=== PATIENT | female | born 1955 | race Caucasian/White ===

== ENCOUNTER 2016-12-23 21:51 | Inpatient (IN) | payer OTHER ==
[2016-12-23 22:04] VITALS: BMI 41.3
[2016-12-23] MEDS ORDERED: SODIUM CHLORIDE 1,000 ML IV STA (23:43)
[2016-12-23] MEDS ORDERED: ONDANSETRON 4 MG/2 ML VIAL IVPB ONE (23:43)
--- NOTE | 2016-12-23 23:43 | PDOC ---
History of Present Illness - History of Present Illness Initial Comments: 12/24/16 01:15 Patient is a 61 year old female with significant medical hx of hypothyroidism, HTN, and metastatic colon CA with spread to pelvis, s/p chemotherapy and radiation, who is presenting to the ED with subjective fever, chills, nausea, vomiting, and diarrhea for one day. Patient is accompanied by family members who provided history. Today the patient had 15 episodes of diarrhea with bright red blood and 3 episodes of nonbloody, nonbilious vomiting. Family members report that the patient has lower abdominal pain that they state is secondary to hernia. They also endorse that multiple family members have had similar symptoms over the past week with nausea, vomiting, and diarrhea. Patient was diagnosed with colon CA back in 2011 and underwent one year of chemotherapy. She received a PET scan in 2014 which demonstrated pelvic mass which was noted to be evidence of progression of disease. Patient was also found to have increased CEA. The patient resumed chemotherapy (Xeloda, Vectibix ) and underwent radiation until 11/25/16. Patient came to the from [place] for a second opinion. <Abby Hope - Last Filed: 12/24/16 01:37> <Celeste Mullen - Last Filed: 12/24/16 16:38> - General Chief Complaint: Pain Stated Complaint: VOMITING/DIARRHEA Time Seen by Provider: 12/23/16 23:28 Past History <Abby Hope - Last Filed: 12/24/16 01:37> - Past Medical History Cancer: Yes (lung, lumph nodes , pelvic) Other medical history: LD chemo november 25 - Psycho/Social/Smoking Cessation Hx Suicidal Ideation: No Smoking History: Never smoked <Celeste Mullen - Last Filed: 12/24/16 16:38> - Past Medical History Allergies/Adverse Reactions: Allergies Allergy/AdvReac Type Severity Reaction Status Date / Time acetaminophen [From Tylenol] Allergy Verified 12/23/16 22:05 ciprofloxacin [From Cipro] Allergy Verified 12/23/16 22:04 ciprofloxacin HCl Allergy Verified 12/23/16 22:04 [From Cipro] loratadine [From Claritin] Allergy Verified 12/23/16 22:05 Penicillins Allergy Verified 12/23/16 22:05 Home Medications: Ambulatory Orders Enalapril Maleate [Vasotec] 20 mg PO DAILY 12/24/16 Levothyroxine [Synthroid -] 150 mcg PO DAILY 12/24/16 Review of Systems - Review of Systems Comments:: 12/24/16 01:18 CONSTITUTIONAL: Present: subjective fever, chills Absent: diaphoresis, generalized weakness, malaise, loss of appetite HEENT: Absent: rhinorrhea, nasal congestion, throat pain, throat swelling, difficulty swallowing, mouth swelling, ear pain, eye pain, visual changes CARDIOVASCULAR: Absent: chest pain, syncope, palpitations, irregular heart rate, lightheadedness , peripheral edema RESPIRATORY: Absent: cough, shortness of breath, dyspnea with exertion, orthopnea, wheezing, stridor, hemoptysis GASTROINTESTINAL: Present: lower abdominal pain, nausea, vomiting, diarrhea Absent: abdominal distension, constipation, melena, hematochezia GENITOURINARY: Absent: dysuria, frequency, urgency, hesitancy, hematuria, flank pain, genital pain MUSCULOSKELETAL: Absent: myalgia, arthralgia, joint swelling SKIN: Absent: rash, itching, pallor HEMATOLOGIC/IMMUNOLOGIC: Absent: easy bleeding, easy bruising, lymphadenopathy, frequent infections ENDOCRINE: Absent: unexplained weight gain, unexplained weight loss, heat intolerance, cold intolerance NEUROLOGIC: Absent: headache, focal weakness or paresthesia, dizziness, unsteady gait, seizure, mental status changes, bladder or bowel incontinence. PSYCHIATRIC: Absent: anxiety, depression, suicidal or homicidal ideation, hallucinations <Abby Hope - Last Filed: 12/24/16 01:37> *Physical Exam - Vital Signs Last Vital Signs Temp Pulse Resp BP Pulse Ox 98.3 F 95 H 18 140/78 99 12/23/16 21:59 12/23/16 21:59 12/23/16 21:59 12/23/16 21:59 12/23/16 21:59 - Physical Exam Comments: 12/24/16 01:19 GENERAL: Well developed, well nourished. Awake and alert. No acute distress. HEENT: Normocephalic, atraumatic. PERRLA, EOMI. No conjunctival pallor. Sclera are non- icteric. Moist mucous membranes. Oropharynx is clear. NECK: Supple. Full ROM. No JVD. Carotid pulses 2+ and symmetric, without bruits. No thyromegaly. No lymphadenopathy. CARDIOVASCULAR: Regular rate and rhythm. No murmurs, rubs, or gallops. Distal pulses are 2+ and symmetric. PULMONARY: No evidence of respiratory distress. Lungs clear to auscultation bilaterally. No wheezing, rales or rhonchi. ABDOMINAL: Protuberant. Soft. Non-tender. Non-distended. No rebound or guarding. No organomegaly. Normoactive bowel sounds. MUSCULOSKELETAL: Normal range of motion at all joints. No bony deformities or tenderness. No CVA tenderness. EXTREMITIES: No cyanosis. No clubbing. No edema. No calf tenderness. SKIN: Scattered skin lesions of various ages, some are healed, throughout arms and torso. No evidence of cellulitis. Warm and dry. Normal capillary refill. NEUROLOGICAL: Alert, awake, appropriate. Cranial nerves 2-12 intact. Normal speech. Gait is normal without ataxia. PSYCHIATRIC: Cooperative. Good eye contact. Appropriate mood and affect. <Abby Hope - Last Filed: 12/24/16 01:37> - Vital Signs Last Vital Signs Temp Pulse Resp BP Pulse Ox 98.3 F 95 H 18 140/78 99 12/23/16 21:59 12/23/16 21:59 12/23/16 21:59 12/23/16 21:59 12/23/16 21:59 <Celeste Mullen - Last Filed: 12/24/16 16:38> ED Treatment Course - LABORATORY CBC & Chemistry Diagram: 12/24/16 01:20 12/24/16 01:20 <Abby Hope - Last Filed: 12/24/16 01:37> - LABORATORY CBC & Chemistry Diagram: 12/24/16 15:00 12/24/16 15:00 <Celeste Mullen - Last Filed: 12/24/16 16:38> Medical Decision Making - Medical Decision Making 12/24/16 01:28 61-year-old female brought in by family because she had nausea vomiting diarrhea in the last 24 hours. She does have sick contacts as her daughter states she had similar symptoms recently On exam, she had put her in. Abdomen, but without rebound or tenderness In speaking with the family told us that she had come from [place] on to seek a second opinion about her metastatic adenocarcinoma -Initially diagnosed with colon cancer in 2011 -However in February 2015. A pelvic mass was found in the biopsy showed that it was adenocarcinoma. She received Elfrida radiation and further chemotherapy for this cancer. - <Celeste Mullen - Last Filed: 12/24/16 16:38> *DC/Admit/Observation/Transfer - Attestations Scribe Attestion: 12/24/16 01:21 Documentation prepared by Abby Hope, acting as program medical director for Celeste Mullen MD. <Abby Hope - Last Filed: 12/24/16 01:37> <Celeste Mullen - Last Filed: 12/24/16 16:38> Diagnosis at time of Disposition: Hypocalcemia, Colon cancer
[2016-12-23] MEDS ORDERED: ONDANSETRON 4 MG/2 ML VIAL ONE (23:48)
[2016-12-24 01:37] LABS: BASOPHIL 0.7 % (0-2.0); EOSINOPHIL 0.7 % (0-4.5); MCH 29.8 pg (25.7-33.7); MCHC 32.6 g/dl (32.0-36.0); MEAN CELL VOLUME 91.2 fl (80-96); MEAN PLT VOLUME 8.4 fl (7.5-11.1); NEUTROPHILS 84.7 % (42.8-82.8); PLATELET COUNT 199 K/MM3 (134-434); RDW 21.4 % (11.6-15.6)
[2016-12-24 01:56] LABS: ALBUMIN 3.4 g/dl (3.4-5.0); ANION GAP 12 (8-16); BILIRUBIN,TOTAL 1.2 mg/dL (0.2-1.0); CO2 22 mmol/L (21-32); GLUCOSE,RANDOM 116 mg/dL (74-106); SGOT/AST 26 U/L (15-37)
[2016-12-24 01:59] LABS: ALK PHOS 160 U/L (45-117); SGPT/ALT 20 U/L (12-78)
[2016-12-24 02:02] LABS: CALCIUM 6.8 mg/dL (8.5-10.1)
[2016-12-24 02:03] LABS: ANISOCYTOSIS 2+; PLATELET ESTIMATE ADEQUATE (NORMAL)
[2016-12-24] MEDS ORDERED: POTASSIUM CHLORIDE TABS 20 MEQ TABLET.ER (FP) PO ONE ×2 (02:46→03:33)
--- NOTE | 2016-12-24 05:52 | PDOC ---
*Physical Exam - Vital Signs Last Vital Signs Temp Pulse Resp BP Pulse Ox 98.3 F 95 H 18 140/78 99 12/23/16 21:59 12/23/16 21:59 12/23/16 21:59 12/23/16 21:59 12/23/16 21:59 <Moira Johnson - Last Filed: 12/24/16 06:19> - Vital Signs Last Vital Signs Temp Pulse Resp BP Pulse Ox 98.3 F 95 H 18 140/78 99 12/23/16 21:59 12/23/16 21:59 12/23/16 21:59 12/23/16 21:59 12/23/16 21:59 <Arcelia,Prieto - Last Filed: 12/24/16 06:22> Heart Score/ECG Review - ECG Impressions Comment:: 12/24/16 05:52 Twelve-lead EKG was performed and reviewed by me. There is normal sinus rhythm with a normal rate. rate of 77 The axis is normal. The intervals are normal. There is normal R wave progression There are no ST or T wave abnormalities. Impression: Normal twelve-lead EKG <Prieto Paniagua - Last Filed: 12/24/16 06:22> ED Treatment Course - LABORATORY CBC & Chemistry Diagram: 12/24/16 01:20 12/24/16 05:20 - ADDITIONAL ORDERS Additional order review: Laboratory Results 12/24/16 12/24/16 05:20 01:20 Sodium 141 142 Potassium 4.2 D 3.4 L Chloride 111 H 108 H Carbon Dioxide 19 L 22 Anion Gap 11 12 BUN 14 15 Creatinine 0.8 1.0 Creat Clearance w eGFR > 60 56.75 Random Glucose 103 116 H Calcium 6.6 L* 6.8 L* Total Bilirubin 1.1 H 1.2 H AST 34 D 26 ALT 18 20 Alkaline Phosphatase 135 H 160 H Total Protein 6.0 L 7.0 Albumin 2.8 L 3.4 Lipase 237 12/24/16 01:20 RBC 3.88 MCV 91.2 MCHC 32.6 RDW 21.4 H MPV 8.4 Neutrophils % 84.7 H Lymphocytes % 8.2 Monocytes % 5.7 Eosinophils % 0.7 Basophils % 0.7 - RADIOLOGY Radiograph Interpretation: 12/24/16 06:19 EXAM: CT abdomen and pelvis with contrast Reviewed by Imaging supervisor conditioning yard: FINDINGS: Bibasilar lung nodules could represent metastases. The visualized cardiac chambers are normal size and configuration. There is mildly fatty. Status post cholecystectomy no biliary duct dilation.A 1.1 cm right adrenal nodule could represent adenoma. Normal pancreas, spleen, left adrenal gland and kidneys. There is a large multiloculated ventral hernia containing multiple loops small bowel without bowel obstruction. There is moderate rectal inflammation with mild inflammation of the rest of the colon as well as left-sided abdominal small bowel inflammation which may be secondary to infection or inflammatory bowel disease. Recurrent neoplasm is not excluded. No bowel obstruction, abscess or free air. There is no aortic aneurysm. There is no significant retroperitoneal lymphadenopathy. The appendix was not identified. Status post hysterectomy. 3.1 x 2.2 cm ovoid left pelvic mass could represent the left ovary and should be correlated with surgical history compared to a prior exams. Urinary bladder is inflamed, consistent with cystitis. There is no pelvic free fluid. Right pelvic regular calcification may represent an old inflamed or infected lymph node and/or post treatment dystrophic calcification . IMPRESSION: Moderate colitis and mild left-sided enteritis could be secondary to infection or inflammatory bowel disease. Recurrent neoplasm cannot be excluded. Large multiloculated ventral hernia containing small bowel without evidence of bowel obstruction. Lung nodules are suspicious for metastases. Left pelvic mass may represent a normal ovary, but recommend comparison to prior exams and pelvic surgical history. Fatty liver. Small right adrenal nodule is possibly an adenoma which can be followed up with MRI and/or compared to prior exams. - Medications Given in the ED: ED Medications Discontinued Medications Generic Name Dose Route Start Last Admin Trade Name Freq PRN Reason Stop Dose Admin Sodium Chloride 1,000 mls @ 1,000 mls/hr 12/23/16 23:43 12/24/16 01:39 Normal Saline - IV 12/24/16 00:42 1,000 mls/hr ASDIR STA Administration Ondansetron HCl 4 mg 12/23/16 23:43 12/24/16 01:39 Zofran Injection IVPB 12/23/16 23:44 4 mg ONCE ONE Administration Potassium Chloride 40 meq 12/24/16 02:46 12/24/16 03:34 K-Dur - PO 12/24/16 02:47 40 meq ONCE ONE Administration <Moira Johnson - Last Filed: 12/24/16 06:19> - LABORATORY CBC & Chemistry Diagram: 12/24/16 01:20 12/24/16 05:20 - ADDITIONAL ORDERS Additional order review: Laboratory Results 12/24/16 01:20 Sodium 142 Potassium 3.4 L Chloride 108 H Carbon Dioxide 22 Anion Gap 12 BUN 15 Creatinine 1.0 Creat Clearance w eGFR 56.75 Random Glucose 116 H Calcium 6.8 L* Total Bilirubin 1.2 H AST 26 ALT 20 Alkaline Phosphatase 160 H Total Protein 7.0 Albumin 3.4 Lipase 237 12/24/16 01:20 RBC 3.88 MCV 91.2 MCHC 32.6 RDW 21.4 H MPV 8.4 Neutrophils % 84.7 H Lymphocytes % 8.2 Monocytes % 5.7 Eosinophils % 0.7 Basophils % 0.7 - RADIOLOGY Radiology Studies Ordered: Category Date Time Status ABDOMEN & PELVIS CT WITH CONTR [CT] Stat CT Scan 12/24/16 02:56 Taken - Medications Given in the ED: ED Medications Discontinued Medications Generic Name Dose Route Start Last Admin Trade Name Freq PRN Reason Stop Dose Admin Sodium Chloride 1,000 mls @ 1,000 mls/hr 12/23/16 23:43 12/24/16 01:39 Normal Saline - IV 12/24/16 00:42 1,000 mls/hr ASDIR STA Administration Ondansetron HCl 4 mg 12/23/16 23:43 12/24/16 01:39 Zofran Injection IVPB 12/23/16 23:44 4 mg ONCE ONE Administration Potassium Chloride 40 meq 12/24/16 02:46 12/24/16 03:34 K-Dur - PO 12/24/16 02:47 40 meq ONCE ONE Administration <Arcelia,Prieto - Last Filed: 12/24/16 06:22> Medical Decision Making - Medical Decision Making 12/24/16 05:48 Pt signed out to me from Dr. Mullen at approx 2am. The pt is a 61y F hx of hypothryoidism, htn, metastatic colon ca with spread to pelvis s/p chemo radiation presenting with subjective fver, n/v/d for x 1 day. pt [place] 6/5 [place] the [place]. pt had labs that showed hypocalcemia to 6.5. will repeat. also awiaint repeat CT dispo pending 12/24/16 06:13 pts calcium, repeat was 6.6 corrected for albumin is 7.6 will give her calcium gluconate pts CT noted for moderate colitis with left sided enteritis that could be seconary to infection vs. inflammatory vs recurrentneoplasm. +lung nodules, +L pelvic mass showing possible ovary vs. mass. del dmit for further management of hypocalcemia and oncology workup case dw dr. leija agree with admssion for further management will place in med/surg Case discussed in detail with admitting physician including history, physical exam and ancillary studies. Admitting physician has assumed care for the patient, will follow all pending diagnostics and will complete the evaluation and treatment. <Prieto Paniagua - Last Filed: 12/24/16 06:22> *DC/Admit/Observation/Transfer <Moira Johnson - Last Filed: 12/24/16 06:19> - Discharge Dispostion Admit: Yes <Prieto Paniagua - Last Filed: 12/24/16 06:22> Diagnosis at time of Disposition: Hypocalcemia Colon cancer Qualifiers: Colon location: unspecified part of colon Qualified Code(s): C18.9 - Malignant neoplasm of colon, unspecified
[2016-12-24 06:01] LABS: ALBUMIN 2.8 g/dl (3.4-5.0); ALK PHOS 135 U/L (45-117); ANION GAP 11 (8-16); BILIRUBIN,TOTAL 1.1 mg/dL (0.2-1.0); CO2 19 mmol/L (21-32); CREATININE 0.8 mg/dL (0.55-1.02); GLUCOSE,RANDOM 103 mg/dL (74-106); SGPT/ALT 18 U/L (12-78)
[2016-12-24 06:03] LABS: SGOT/AST 34 U/L (15-37)
[2016-12-24 06:04] LABS: CALCIUM 6.6 mg/dL (8.5-10.1)
[2016-12-24] MEDS ORDERED: CALCIUM GLUCONATE 10% - 1,000 MG/10 ML VIAL IVPUSH ONE (06:12)
[2016-12-24] MEDS ORDERED: CALCIUM GLUCONATE 10% - 1,000 MG/10 ML VIAL ONE (06:16)
[2016-12-24 06:37] LABS: URINE APPEARANCE CLEAR; URINE BILIRUBIN NEGATIVE (NEGATIVE); URINE COLOR LTYELLOW; URINE GLUCOSE (UA) NEGATIVE (NEGATIVE); URINE KETONE NEGATIVE (NEGATIVE); URINE LEUK ESTERASE NEGATIVE (NEGATIVE); URINE NITRITE NEGATIVE (NEGATIVE); URINE PROTEIN NEGATIVE (NEGATIVE); URINE UROBILINOGEN NEGATIVE E.U./dl (0.2-1.0)
[2016-12-24 06:40] LABS: URINE BLOOD 2+ (NEGATIVE)
[2016-12-24 06:45] LABS: URINE MUCUS RARE; URINE RBC 6 /hpf (0-3); URINE WBC 16 /hpf (3-5)
[2016-12-24] MEDS ORDERED: ONDANSETRON 4 MG/2 ML VIAL IVPB PRN (08:41)
--- NOTE | 2016-12-24 08:57 | HP ---
CHIEF COMPLAINT:Nausea vomiting diarrhea and abdominal pain PCP:[place] HISTORY OF PRESENT ILLNESS: 61F with history of HTN hypothyroidism and metastatic colon Ca presents to the ED with a chief complaint of nausea, vomiting, diarrhea, and abdominal pain. History provided by patient and her son. Per patient she has had these symptoms since last night. She has been in contact with family members with similar symptoms. Today the patient had 15 episodes of diarrhea and 3 episodes of nonbloody, nonbilious vomiting. She reports subjective fevers and chills. Patient endorses lower abdominal pain is secondary to a ventral hernia. She states that she has had some blood in her stools for the past month. Has also been having vagina spotting for a couple of months. Her last antibiotic use was about a month ago. Patient was diagnosed with colon CA back in 2011 and underwent 25 sessions of radiation last one being 05/2016 and also chemotherapy (Xeloda, Vectibix) last dose 11/25/2016. She received a PET scan in 2014 which demonstrated pelvic mass which was noted to be evidence of progression of disease. Patient was also found to have increased CEA. Patient came to the [facility] from [place] for a second opinion and is awaiting insurance approval to be seen at [facility]. Last colonoscopy was in 2013. She denies chest pain, shortness of breath, edema, or burning on urination. Patient was noted to be hypocalcemic in the ED despite correcton for albumin and calcium gluconate given. ER course was notable for: (1)Labs EKG IVF (2)CT ABD/Pelv (3)Potassium calcium repletion antiemetics Recent Travel:Here from [place] PAST MEDICAL HISTORY:As above/ Ventral hernia PAST SURGICAL HISTORY:Cholecystectomy colon resection/ventral hernia repair hysterectomy Social History: Smoking:Denies Alcohol:Denies Drugs: Denies Allergies acetaminophen [From Tylenol] Allergy (Verified 12/23/16 22:05)-----Anaphylaxis ciprofloxacin [From Cipro] Allergy (Verified 12/23/16 22:04)----Rash ciprofloxacin HCl [From Cipro] Allergy (Verified 12/23/16 22:04)-----Rash loratadine [From Claritin] Allergy (Verified 12/23/16 22:05) Penicillins Allergy (Verified 12/23/16 22:05)-------Rash HOME MEDICATIONS: Home Medications Medication Instructions Recorded Enalapril Maleate [Vasotec] 20 mg PO DAILY 12/24/16 Levothyroxine [Synthroid -] 150 mcg PO DAILY 12/24/16 REVIEW OF SYSTEMS CONSTITUTIONAL: Absent: diaphoresis, generalized weakness, malaise, loss of appetite, weight change Present: fever, chills HEENT: Absent: rhinorrhea, nasal congestion, throat pain, throat swelling, difficulty swallowing, mouth swelling, ear pain, eye pain, visual changes CARDIOVASCULAR: Absent: chest pain, syncope, palpitations, irregular heart rate, lightheadedness , peripheral edema RESPIRATORY: Absent: cough, shortness of breath, dyspnea with exertion, orthopnea, wheezing, stridor, hemoptysis GASTROINTESTINAL: Absent: abdominal distension, constipation, melena Present: hematochezia abdominal pain, nausea, vomiting, diarrhea GENITOURINARY: Absent: dysuria, frequency, urgency, hesitancy, hematuria, flank pain, genital pain MUSCULOSKELETAL: Absent: myalgia, arthralgia, joint swelling, back pain, neck pain SKIN: Absent: rash, itching, pallor HEMATOLOGIC/IMMUNOLOGIC: Absent: easy bleeding, easy bruising, lymphadenopathy, frequent infections ENDOCRINE: Absent: unexplained weight gain, unexplained weight loss, heat intolerance, cold intolerance NEUROLOGIC: Absent: headache, focal weakness or paresthesias, dizziness, unsteady gait, seizure, mental status changes, bladder or bowel incontinence PSYCHIATRIC: Absent: anxiety, depression, suicidal or homicidal ideation, hallucinations. PHYSICAL EXAMINATION Vital Signs - 24 hr 12/24/16 07:03 Temperature 97.9 F Pulse Rate [ 70 Left] Respiratory 18 Rate Blood Pressure 127/71 [Left Arm] O2 Sat by Pulse 99 Oximetry (%) GENERAL: Awake, alert, and fully oriented, in no acute distress. HEAD: Normal with no signs of trauma. EYES: Pupils equal, round and reactive to light, extraocular movements intact, sclera anicteric, conjunctiva clear EARS, NOSE, THROAT: Moist mucous membranes. LUNGS: Breath sounds equal, clear to auscultation bilaterally. No wheezes, and no crackles. No accessory muscle use. HEART: Regular rate and rhythm, normal S1 and S2 without murmur ABDOMEN: Obese, soft, mildly tender to palpation over hernia. large abdominal defect noted. midline scar well healed UPPER EXTREMITIES: warm, well-perfused. No peripheral edema. LOWER EXTREMITIES: warm, well-perfused. No calf tenderness. No peripheral edema. NEUROLOGICAL: Cranial nerves II-XII grossly intact. Normal speech. Reflexes 2+ PSYCHIATRIC: Cooperative. Good eye contact. Appropriate mood and affect. SKIN: Warm, dry, normal turgor Laboratory Results - last 24 hr 12/24/16 07:00 Lactic Acid 1.5 EKG: NSR EXAM: CT abdomen and pelvis with contrast Reviewed by Imaging tourist information assistant: FINDINGS: Bibasilar lung nodules could represent metastases. The visualized cardiac chambers are normal size and configuration. There is mildly fatty. Status post cholecystectomy no biliary duct dilation.A 1.1 cm right adrenal nodule could represent adenoma. Normal pancreas, spleen, left adrenal gland and kidneys. There is a large multiloculated ventral hernia containing multiple loops small bowel without bowel obstruction. There is moderate rectal inflammation with mild inflammation of the rest of the colon as well as left-sided abdominal small bowel inflammation which may be secondary to infection or inflammatory bowel disease. Recurrent neoplasm is not excluded. No bowel obstruction, abscess or free air. There is no aortic aneurysm. There is no significant retroperitoneal lymphadenopathy. The appendix was not identified. Status post hysterectomy. 3.1 x 2.2 cm ovoid left pelvic mass could represent the left ovary and should be correlated with surgical history compared to a prior exams. Urinary bladder is inflamed, consistent with cystitis. There is no pelvic free fluid. Right pelvic regular calcification may represent an old inflamed or infected lymph node and/or post treatment dystrophic calcification . IMPRESSION: Moderate colitis and mild left-sided enteritis could be secondary to infection or inflammatory bowel disease. Recurrent neoplasm cannot be excluded. Large multiloculated ventral hernia containing small bowel without evidence of bowel obstruction. Lung nodules are suspicious for metastases. Left pelvic mass may represent a normal ovary, but recommend comparison to prior exams and pelvic surgical history. Fatty liver. Small right adrenal nodule is possibly an adenoma which can be followed up with MRI and/or compared to prior exams. ASSESSMENT/PLAN: 61F with multiple medical problems presemts to the ED with sepsis, nausea, vomiting, diarrhea, in the setting of metastatic colon cancer. sepsis secondary to Infectious colitis as patient had a HR of 95 and WBC of 14 on admission: likely infectious given history of presenting illness and recent sick contacts with similar problems. could also be inflammatory vs recurrent neoplasm Sepsis has resolved with IVF. Admit to inpatient services start clear liquid diet antiemetics PRN send stool studies for ova and parasites stool cultures stool WBC/gram stain Stool for Shiga toxin prodicing E. Coli Stool for C. Diff IVF flagyl 500mg IV q8h Hypocalcemia: currently asymptomatic Start calcium carbonate 1300mg po TID and recheck CMP in 6 hours HTN: Restart enalapril 20mg po daily Hypothyroidism: Restart Synthroid 150mcg po QAM Vaginal bleeding: chronic. will give outpatient follow up with [employer] Metastatic Colon Ca: Patient awaiting insurance approval for a second opinion at [facility] Likely the reason for her hematochezia CBC stable at this time will give outpatient follow up with oncology lung nodules-possibly and likely from metastatic colon Ca : will give oupatient follow up with pulmonology FEN: NS @ 75ml/h until tolerating adequate PO intake hypocalcemia: see plan above CLD PPx: No GI PPx indicated at this time SCDs-patient is having GI and Vaginal bleeding: recheck CBC in 6 hours if stable start chemical PPx PT Consult Case discussed with attending physician Dr. Liuza Morse PGY-2 Pager: [phone] Visit type - Emergency Visit Emergency Visit: Yes ED Registration Date: 12/24/16 Care time: The patient presented to the Emergency Department on the above date and was hospitalized for further evaluation of their emergent condition. - New Patient This patient is new to me today: Yes Date on this admission: 12/24/16 - Critical Care Critical Care patient: No
[2016-12-24 09:42] LABS: MAGNESIUM 0.7 mg/dL (1.8-2.4)
[2016-12-24] MEDS ORDERED: PATIENT'S OWN MEDICATION (NON-FORMULARY) (Enalapril Maleate [Vasotec] 20 MG) PO SCH (10:00)
--- NOTE | 2016-12-24 10:14 | PN ---
Teaching Attending Note Name of Resident: John Rick ATTENDING PHYSICIAN STATEMENT I saw and evaluated the patient. I reviewed the resident's note and discussed the case with the resident. I agree with the resident's findings and plan as documented. SUBJECTIVE:61yo F c/o nausea/vomiting and diarrhea x1 day. 10 episodes of loose stool yesterday, today she has had 4. other people in her [place] 4 [place] ago. also reports intermittent vaginal spotting for past year. denies Cp, SOB, seizure, muscle spasms, GUERRERO or blurred vision. no LOC or change in mentation. recent travel from [place], was living there came to [facility] for second opinion on colon cancer. OBJECTIVE: Last Vital Signs Temp Pulse Resp BP Pulse Ox 98.3 F 75 20 141/89 99 12/24/16 08:23 12/24/16 08:23 12/24/16 08:23 12/24/16 08:23 12/24/16 07:03 General NAD CV S1 S2 RRR no murmur/rub/gallop lungs CTA B/l no wheezing/rales/rhonchi Abdomen +LLQ tenderness, +umbilical hernia reducible. obese, multiple old scars across the abdomen Extremities no pedal edema ASSESSMENT AND PLAN: 61yo F wtih PMH hypothyroid, HTN and colon cancer with mets s/p resection/chemo/ RTX therapy arrived to the ER c/o nausea/vomiting and diarrhea x1 day 1. sepsis due to Gastroenteritis- medicine admission. (tachycardic and leukocytosis). start clear liquids. IVF until can tolerate liquid diet. start Flagyl/Ceftriaxone (has FQ allergy). check cdiff 2. Hypocalcemia- due to hypomagnesemia vs chronic due to chemotherapy. possible received Zometa and now delayed effect. will need to check phosphorous. corrected Ca 7.6. asymptomatic. given calcium gluconate in the ER. start oral supplementation. repeat labs in evening 3. Severe Hypomagnesemia- Mg 2g IV and po. repeat in the evening 4. hypokalemia- resolved 5. HTN- controlled. hold oral medications, re-start when BP raises 6. Vaginal bleeding- s/p hysterectomy. repeat CBC. 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 DVT ppx- will start lovenox once hgb is determined to be stable
[2016-12-24] MEDS: SODIUM CHLORIDE 1,000 ML IV SCH (10:38)
[2016-12-24] MEDS ORDERED: MAGNESIUM OXIDE 400 MG TABLET (FP) PO ONE ×2 (10:45→22:00)
[2016-12-24] MEDS ORDERED: MAGNESIUM SULF 50% (8.12 MEQ/2 ML-1 GM VIAL) IVPB ONE ×3 (10:45→16:56)
[2016-12-24] MEDS: ENALAPRIL MALEATE 10 MG TABLET (FP) PO SCH (12:13)
[2016-12-24] MEDS: METRONIDAZOLE 500 MG PREMIXED 100 ML IVPB SCH ×2 (12:14→18:00)
[2016-12-24] MEDS: LEVOTHYROXINE NA 150 MCG TABLET PO SCH (12:17)
--- NOTE | 2016-12-24 13:07 | EKG ---
Test Reason : Blood Pressure : / mmHG Vent. Rate : 077 BPM Atrial Rate : 077 BPM P-R Int : 126 ms QRS Dur : 100 ms QT Int : 436 ms P-R-T Axes : 053 009 041 degrees QTc Int : 493 ms POOR DATA QUALITY, INTERPRETATION MAY BE ADVERSELY AFFECTED NORMAL SINUS RHYTHM NORMAL ECG NO PREVIOUS ECGS AVAILABLE CORELATE CLINICALLY. Confirmed by DASHA AVINA MD [id number] on 12/24/2016 1:07:05 PM Referred By: Confirmed By:DASHA AVINA MD
[2016-12-24] MEDS: cefTRIAXone 1 GM/50 ML BAG (PRE-DOCKED) IVPB SCH (13:37)
[2016-12-24] MEDS: CALCIUM CARBONATE 650 MG TABLET PO SCH ×2 (13:49→22:15)
[2016-12-24] MEDS ORDERED: CALCIUM CARBONATE 650 MG TABLET PO SCH (14:00)
[2016-12-24 15:20] LABS: MCH 30.2 pg (25.7-33.7); MCHC 33.3 g/dl (32.0-36.0); MEAN CELL VOLUME 90.9 fl (80-96); MEAN PLT VOLUME 8.2 fl (7.5-11.1); PLATELET COUNT 159 K/MM3 (134-434); RDW 21.6 % (11.6-15.6); WHITE BLOOD COUNT 8.6 K/mm3 (4.0-10.0)
[2016-12-24 15:42] LABS: ALBUMIN 2.8 g/dl (3.4-5.0); ANION GAP 8 (8-16); BILIRUBIN,TOTAL 0.8 mg/dL (0.2-1.0); CO2 23 mmol/L (21-32); CREATININE 0.8 mg/dL (0.55-1.02); GLUCOSE,RANDOM 96 mg/dL (74-106); MAGNESIUM 1.6 mg/dL (1.8-2.4); SGOT/AST 20 U/L (15-37); SGPT/ALT 17 U/L (12-78); TOT PROT 6.1 g/dl (6.4-8.2)
[2016-12-24 15:43] LABS: ALK PHOS 142 U/L (45-117)
[2016-12-24 15:49] LABS: CALCIUM 6.9 mg/dL (8.5-10.1)
[2016-12-24] MEDS: HEPARIN NA (PORCINE) 5,000 UNITS/ML 1ML VIAL SQ SCH (22:15)
[2016-12-25] MEDS: METRONIDAZOLE 500 MG PREMIXED 100 ML IVPB SCH ×3 (01:41→17:14)
[2016-12-25] MEDS: CALCIUM CARBONATE 650 MG TABLET PO SCH ×3 (06:12→22:22)
[2016-12-25] MEDS: LEVOTHYROXINE NA 150 MCG TABLET PO SCH (06:13)
[2016-12-25] MEDS: SODIUM CHLORIDE 1,000 ML IV SCH ×2 (06:13→09:34)
[2016-12-25 07:42] LABS: BASOPHIL 0.5 % (0-2.0); EOSINOPHIL 7.1 % (0-4.5); MCH 30.8 pg (25.7-33.7); MCHC 33.4 g/dl (32.0-36.0); MEAN CELL VOLUME 92.2 fl (80-96); MEAN PLT VOLUME 8.9 fl (7.5-11.1); NEUTROPHILS 70.6 % (42.8-82.8); PLATELET COUNT 156 K/MM3 (134-434); RDW 20.8 % (11.6-15.6); WHITE BLOOD COUNT 6.8 K/mm3 (4.0-10.0)
[2016-12-25 08:09] LABS: ANION GAP 9 (8-16); CALCIUM 7.4 mg/dL (8.5-10.1); CO2 22 mmol/L (21-32); CREATININE 0.8 mg/dL (0.55-1.02); GLUCOSE,RANDOM 94 mg/dL (74-106); MAGNESIUM 1.7 mg/dL (1.8-2.4); PHOSPHOROUS 2.3 mg/dL (2.5-4.9); SGOT/AST 26 U/L (15-37); SGPT/ALT 22 U/L (12-78)
[2016-12-25 08:12] LABS: ALK PHOS 142 U/L (45-117); TOT PROT 6.2 g/dl (6.4-8.2)
[2016-12-25] MEDS: ENALAPRIL MALEATE 10 MG TABLET (FP) PO SCH (09:35)
[2016-12-25] MEDS: HEPARIN NA (PORCINE) 5,000 UNITS/ML 1ML VIAL SQ SCH ×2 (09:35→22:23)
[2016-12-25] MEDS: cefTRIAXone 1 GM/50 ML BAG (PRE-DOCKED) IVPB SCH (09:40)
[2016-12-25] MEDS ORDERED: NAPH,MB-DB/K PH,MBDB POWDER PACKET PO ONE (12:30)
[2016-12-25] MEDS ORDERED: MAGNESIUM OXIDE 400 MG TABLET (FP) PO ONE (15:33)
[2016-12-25] MEDS ORDERED: MAGNESIUM SULF 50% (8.12 MEQ/2 ML-1 GM VIAL) IVPB ONE (15:33)
--- NOTE | 2016-12-25 15:46 | PN ---
Teaching Attending Note Name of Resident: Burke Vuong ATTENDING PHYSICIAN STATEMENT I saw and evaluated the patient. I reviewed the resident's note and discussed the case with the resident. I agree with the resident's findings and plan as documented. SUBJECTIVE:clinically improved. tolerating liquid. no BM since yesterday. denies CP, SOB, fever, chills, N/V/C/D OBJECTIVE: Last Vital Signs Temp Pulse Resp BP Pulse Ox 97.8 F 66 18 106/58 99 12/25/16 14:18 12/25/16 14:18 12/25/16 08:43 12/25/16 14:18 12/25/16 08:41 eneral NAD Abdomen +LLQ tenderness, +umbilical hernia reducible. obese, multiple old scars across the abdomen ASSESSMENT AND PLAN: 61yo F wtih PMH hypothyroid, HTN and colon cancer with mets s/p resection/chemo/ RTX therapy arrived to the ER c/o nausea/vomiting and diarrhea x1 day 1. sepsis due to Gastroenteritis- improved. will advance diet as tolerated. cont Flagyl/Ceftriaxone day 2(has FQ allergy). f/u stool cx. cdiff negative 2. Hypocalcemia- due to hypomagnesemia vs chronic due to chemotherapy. corrected Ca 8.2. asymptomatic. cont calcium supplements. can likely switch to daily dosing on discharge. 3. Severe Hypomagnesemia- Mg 2g IV and po. 4. hypophosphatemia- neutraphos 4. hypokalemia- resolved 5. HTN- controlled. cont enalapril 6. Vaginal bleeding- s/p hysterectomy. Hgb stable. 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 DVT ppx- lovenox 8. d/c planning in AM if able to tolerate diet
--- NOTE | 2016-12-25 17:11 | PN ---
Physical Exam: SUBJECTIVE: Patient seen and examined 1 nonbloody overnight. Feels significantly better. No acute complaints. Denies chest pain, shortness of breath, nausea, vomiting, constipation OBJECTIVE: Vital Signs Period Temp Pulse Resp BP Sys/Gresham Pulse Ox Last 24 Hr 97.8 F-98.7 F 64-66 18-21 106-125/51-64 99-99 GENERAL: The patient is awake, alert, and fully oriented, in no acute distress. HEAD: Normal with no signs of trauma. EYES:extraocular movements intact, sclera anicteric, conjunctiva clear. ENT: oropharynx clear without exudates, moist mucous membranes. NECK: Trachea midline, full range of motion LUNGS: Breath sounds equal, clear to auscultation bilaterally, no wheezes, no crackles, no accessory muscle use. HEART: Regular rate and rhythm, S1, S2 without murmur, rub or gallop. ABDOMEN: Soft, mild abdominal tenderness in LUQ and around ventral hernia, nondistended, normoactive bowel sounds, no guarding, no rebound, no hepatosplenomegaly, no masses. EXTREMITIES: warm, well-perfused, no edema. NEUROLOGICAL: Normal speech, gait not observed. PSYCH: Normal mood, normal affect. Laboratory Results - last 24 hr 12/25/16 12/25/16 06:45 06:45 WBC 6.8 RBC 3.41 L Hgb 10.5 L Hct 31.4 L MCV 92.2 MCHC 33.4 RDW 20.8 H Plt Count 156 MPV 8.9 Neutrophils % 70.6 Lymphocytes % 14.2 D Monocytes % 7.6 Eosinophils % 7.1 H D Basophils % 0.5 Sodium 142 Potassium 3.9 Chloride 111 H Carbon Dioxide 22 Anion Gap 9 BUN 9 D Creatinine 0.8 Creat Clearance w eGFR > 60 Random Glucose 94 Calcium 7.4 L Phosphorus 2.3 L Magnesium 1.7 L Total Bilirubin 1.0 D AST 26 D ALT 22 D Alkaline Phosphatase 142 H Total Protein 6.2 L Albumin 3.0 L Active Medications Generic Name Dose Route Start Last Admin Trade Name Freq PRN Reason Stop Dose Admin Calcium Carbonate 650 mg 12/24/16 14:00 12/25/16 13:25 Calcium Carbonate - PO 650 mg TID DIAN Administration Ceftriaxone Sodium 1 gm 12/24/16 11:00 12/25/16 09:40 Rocephin 1gm Ivpb (Pre-Docked) IVPB 1 gm DAILY DIAN Administration Protocol Enalapril Maleate 20 mg 12/24/16 10:00 12/25/16 09:35 Vasotec - PO 20 mg DAILY DIAN Administration Heparin Sodium (Porcine) 5,000 unit 12/24/16 22:00 12/25/16 09:35 Heparin - SQ 5,000 unit BID DIAN Administration Metronidazole 100 mls @ 100 mls/hr 12/24/16 10:00 12/25/16 09:34 Flagyl 500mg Premixed Ivpb - IVPB 100 mls/hr Q8H-IV DIAN Administration Levothyroxine Sodium 150 mcg 12/24/16 10:00 12/25/16 06:13 Synthroid - PO 150 mcg ACBK DIAN Administration Ondansetron HCl 4 mg 12/24/16 08:41 Zofran Injection IVPB Q6H PRN NAUSEA ASSESSMENT/PLAN: 61 year old F with a PMH of metastatic colon cancer, HTN, and hypothyroidism presented to the ED with sepsis, nausea, vomiting, and diarrhea admitted for sepsis secondary to infectious colitis. 1. Sepsis secondary to infectious colitis -HR of 95 and WBC of 14 on admission -Sepsis has since resolved -WBC count down to 6.8 -Day 2 of Flagyl and Rocephin -C. Diff negative Plan: -Continue Day 2 of IV Flagyl 500 mg Q8 and IV Rocephin 1g daily -F/u on stool studies for ova and parasites -F/u on stool cultures -F/u stool WBC/Gram stain -F/u stool for shiga toxin producing E. Coli -Zofran 4mg IV Q6H PRN for nausea -D/C IVF 2. Hypocalcemia -Currently asypmtomatic -Corrected Calcium of 8.2 Plan: -Continue Calcium carbonate 1300 mg PO TID -Can reduce dosing on discharge 3. Hypophosphatemia -Phosphorus level: 2.3 Plan: -2 Packets of neutrophos 4. Hypomagnesemia -Improving -0.7(on 12/24) to 1.7 (on 12/25) Plan: -Magnesium oxide 800 mg PO given -Magnesium sulfate 2gm IV given 5. Hypokalemia -resolved -K: 3.9 Plan: -Continue to monitor 6. HTN -Controlled Plan: -Continue Enalapril 20 mg PO Daily 7. Vaginal Bleeding -chronic s/p hysterectomy Plan: -F/u Outpatient with a safety representative 8. PPX: -Heparin 5000 unit SQ BID -EAM -SCDs B/L 9. FEN/GI Plan: -Advance to low sodium diet Visit type - Emergency Visit Emergency Visit: No - New Patient This patient is new to me today: No - Critical Care Critical Care patient: No
[2016-12-26] MEDS: METRONIDAZOLE 500 MG PREMIXED 100 ML IVPB SCH ×2 (02:43→09:53)
[2016-12-26] MEDS: CALCIUM CARBONATE 650 MG TABLET PO SCH ×2 (06:35→13:52)
[2016-12-26] MEDS: LEVOTHYROXINE NA 150 MCG TABLET PO SCH (06:35)
[2016-12-26 08:06] LABS: BASOPHIL 0.3 % (0-2.0); EOSINOPHIL 4.7 % (0-4.5); MCH 30.3 pg (25.7-33.7); MCHC 32.9 g/dl (32.0-36.0); MEAN PLT VOLUME 8.3 fl (7.5-11.1); NEUTROPHILS 75.1 % (42.8-82.8); PLATELET COUNT 155 K/MM3 (134-434); RDW 20.9 % (11.6-15.6); WHITE BLOOD COUNT 7.6 K/mm3 (4.0-10.0)
[2016-12-26 08:51] LABS: ALBUMIN 2.7 g/dl (3.4-5.0); ANION GAP 6 (8-16); CALCIUM 7.9 mg/dL (8.5-10.1); CO2 26 mmol/L (21-32); CREATININE 0.7 mg/dL (0.55-1.02); GLUCOSE,RANDOM 95 mg/dL (74-106); MAGNESIUM 1.6 mg/dL (1.8-2.4); PHOSPHOROUS 2.2 mg/dL (2.5-4.9); SGOT/AST 20 U/L (15-37); SGPT/ALT 18 U/L (12-78)
[2016-12-26 08:58] LABS: ALK PHOS 136 U/L (45-117); BILIRUBIN,TOTAL 0.4 mg/dL (0.2-1.0)
[2016-12-26] MEDS: HEPARIN NA (PORCINE) 5,000 UNITS/ML 1ML VIAL SQ SCH (09:52)
[2016-12-26] MEDS: cefTRIAXone 1 GM/50 ML BAG (PRE-DOCKED) IVPB SCH (09:53)
[2016-12-26] MEDS ORDERED: PT OWN MED DRAWER 7, Y5N ONE (10:01)
[2016-12-26] MEDS: ENALAPRIL MALEATE 10 MG TABLET (FP) PO SCH (10:02)
--- NOTE | 2016-12-26 11:24 | DS ---
Physical Exam: SUBJECTIVE: Patient seen and examined No acute events overnight. Patient has no complaints. Has been eating well and had 2 nonbloody bowel movements yesterday. OBJECTIVE: Vital Signs Period Temp Pulse Resp BP Sys/Gresham Pulse Ox Last 24 Hr 97.8 F-98.8 F 64-71 18-20 106-156/58-76 99 PHYSICAL EXAM GENERAL: The patient is awake, alert, and fully oriented, in no acute distress. HEAD: Normal with no signs of trauma. EYES:Extraocular movements intact, sclera anicteric, conjunctiva clear. ENT: Oropharynx clear without exudates, moist mucous membranes. NECK: Trachea midline, full range of motion LUNGS: Breath sounds equal, clear to auscultation bilaterally, no wheezes, no crackles, no accessory muscle use. HEART: Regular rate and rhythm, S1, S2 without murmur, rub or gallop. ABDOMEN: Soft, mild abdominal tenderness in LUQ and surrounding ventral hernia, nondistended, normoactive bowel sounds, no guarding, no rebound, no hepatosplenomegaly, no masses. EXTREMITIES: warm, well-perfused, no edema. NEUROLOGICAL: Normal speech, gait not observed. PSYCH: Normal mood, normal affect. LABS Laboratory Results - last 24 hr 12/26/16 12/26/16 07:50 07:50 WBC 7.6 RBC 3.35 L Hgb 10.2 L Hct 30.8 L MCV 92.0 MCHC 32.9 RDW 20.9 H Plt Count 155 MPV 8.3 Neutrophils % 75.1 Lymphocytes % 11.1 D Monocytes % 8.8 Eosinophils % 4.7 H Basophils % 0.3 Sodium 144 Potassium 3.7 Chloride 112 H Carbon Dioxide 26 Anion Gap 6 L BUN 10 Creatinine 0.7 Creat Clearance w eGFR > 60 Random Glucose 95 Calcium 7.9 L Phosphorus 2.2 L Magnesium 1.6 L Total Bilirubin 0.4 D AST 20 D ALT 18 Alkaline Phosphatase 136 H Total Protein 6.0 L Albumin 2.7 L Microbiology 12/24/16 14:07 Stool Clostridium difficile Antigen (MARTHA) - Final - Negative 12/24/16 14:07 Stool Clostridium difficile Toxin Assay - Final 12/24/16 14:07 Stool Shiga Toxin Test - Preliminary HOSPITAL COURSE: Date of Admission:12/24/16 Date of Discharge: 12/26/16 Patient presented to the ED with N/V/D and abdominal pain. She was admitted for sepsis secondary to infectious colitis. Patient had a stool workup (C. Diff, culture, O&P, shiga toxin producing E. Coli, and gram stain). C. Diff was negative, all other stool studies pending. She was started on Rocephin 1g IV and Flagyl 500 mg Q8H. She improved significantly after 1 day. She is being discharged on PO Ceftin 500 mg BID and PO Flagyl 500 mg Q8H to finish a course of 5 days (until 12/28/2016) Patient was found to be hypocalcemic in the hospital. She was told to take calcium supplements on discharge. Pt requested referrals for GI, Oncology, and gynecology to f/u outpt for her chronic issues. Minutes to complete discharge: 30 Discharge Summary Reason For Visit: MALIGNANT NEOPLASM OF COLON,HYPOCALCEMIA Current Active Problems Gastroenteritis (Acute) Hypocalcemia (Acute) Colon cancer (Chronic) Condition: Improved - Instructions Diet, Activity, Other Instructions: -Take 1 tablet of Flagyl 500 mg three times per day for 2 more days (until ). Take 1 tablet tonight when you get home at 6 o clock. -Take 1 tablet of Cefitin 500 mg two times per day for 2 more days (until 12/28/16 ). -Drink plenty of water -Referrals for Dr. Kaiser (oncologist), Dr. Don (cra), and Dr. Schaefer (social work job titles) have been provided. Please follow up in 1 week. -Your calcium was low in the hospital -Take Calcium supplements 1 tablet daily - Continue your home medications: -Enalapril 20 mg 1 tablet per day -Synthroid 150 mcg 1 tablet per day -If you have chest pain, shortness of breath, or any other symptoms please come back to the hospital immediately. Referrals: Lizz Don MD [Staff Physician] - Prieto Kaiser MD [Staff Physician] - Anthony Schaefer MD [Staff Physician] - Disposition: HOME - Home Medications Comprehensive Discharge Medication List: Ambulatory Orders Enalapril Maleate [Vasotec] 20 mg PO DAILY 12/24/16 Levothyroxine [Synthroid -] 150 mcg PO DAILY 12/24/16 This patient is new to me today: No Emergency Visit: No Critical Care patient: No - Discharge Referral Referred to [facility] No
--- NOTE | 2016-12-26 13:38 | PN ---
Teaching Attending Note Name of Resident: Burke Vuong ATTENDING PHYSICIAN STATEMENT I saw and evaluated the patient. I reviewed the resident's note and discussed the case with the resident. I agree with the resident's findings and plan as documented. SUBJECTIVE: Patient has no complaints. She denies abdominal pain, nausea, vomiting, diarrhea. She is tolerating diet. OBJECTIVE: Vital Signs Period Temp Pulse Resp BP Sys/Gresham Pulse Ox Last 24 Hr 97.8 F-98.8 F 64-71 18-20 106-156/58-76 99-99 ASSESSMENT AND PLAN: This is a 61-year-old woman with a history of hypothyroidism, HTN, metastatic colon cancer who presented to the ER with nausea and vomiting. 1. Sepsis secondary to acute gastroenteritis - Improved - On Rocephin, Flagyl - Ok for discharge home 2. Hypocalcemia - Corrected calcium is 8.9 3. Hypomagnesemia - Continue magnesium supplementation 4. Hypophosphatemia - Continue phosphorus supplementation 5. Hypokalemia - Improved 6. HTN - Continue Vasotec 7. Hypothyroidism - Continue Synthroid 8. Vaginal bleeding - Hemoglobin stable - Outpatietn program management manager evaluation
[2016-12-26 13:45] VITALS: BP 155/71; PULSE 65; TEMP 97.3
== END 2016-12-26 14:58 | disposition home or self-care (01) | DRG 872 ==
LOC: JER 21:51 → JERBED 12-24 06:19 → J6S 12-24 07:49
PROVIDERS: ADMIT Internal Medicine; ATTEND Internal Medicine
DX: A41.9 Sepsis, unspecified organism (principal); A09 Infectious gastroenteritis and colitis, unspecified; C18.9 Malignant neoplasm of colon, unspecified; C79.89 Secondary malignant neoplasm of other specified sites; Z68.41 Body mass index [BMI] 40.0-44.9, adult; E83.51 Hypocalcemia; E03.9 Hypothyroidism, unspecified; Z92.21 Personal history of antineoplastic chemotherapy; Z92.3 Personal history of irradiation; E87.6 Hypokalemia; R91.8 Other nonspecific abnormal finding of lung field; K42.9 Umbilical hernia without obstruction or gangrene; E66.9 Obesity, unspecified; Z71.3 Dietary counseling and surveillance; E83.42 Hypomagnesemia; E83.39 Other disorders of phosphorus metabolism; N93.8 Other specified abnormal uterine and vaginal bleeding
CPT/HCPCS: 36415; 74177-TC; 80053; 81003; 81015; 83605; 83690; 83735; 84100; 85025; 85027; 87045; 87046; 87205; 87324; 87427; 87449; 93005; 93010; 97116-GP; 97161-GP; 99283-25; J1644

== ENCOUNTER 2017-04-03 07:34 | Day surgery (SDC) | payer MEDICARE, OTHER ==
[2017-03-31 17:14] VITALS: BMI 41.3
[2017-04-03 08:04] VITALS: TEMP 98.2
[2017-04-03 08:09] LABS: BASOPHIL 0.4 % (0-2.0); EOSINOPHIL 4.2 % (0-4.5); MCH 25.6 pg (25.7-33.7); MEAN PLT VOLUME 8.3 fl (7.5-11.1); NEUTROPHILS 67.4 % (42.8-82.8); PLATELET COUNT 251 K/MM3 (134-434); WHITE BLOOD COUNT 7.4 K/mm3 (4.0-10.0)
[2017-04-03 08:29] LABS: INR 1.13 (0.82-1.09); PROTHROMBIN TIME (PATIENT) 12.8 SEC (9.98-11.88)
[2017-04-03 13:14] VITALS: BP 143/90; PULSE 62
--- NOTE | 2017-04-04 17:20 | PATH ---
Surgical Pathology Report Patient Name: BHUPENDRA MCMILLAN [facility]. Rec. #: [id number] /Age/Gender: 1955 (Age: 61) / F Account: [id number] Location: Taken: 04/03/2017 Received: 04/03/2017 Reported: 04/04/2017 Physicians: Dhruv Funk M.D. Specimen(s) Received PELVIC BIOPSY Clinical History 61-year-old female with history of colon cancer now with left pelvic side wall mass. Final Diagnosis PELVIC SIDE WALL MASS, LEFT, BIOPSY: ADENOCARCINOMA. SEE COMMENT. Comment: Immunohistochemical stains performed at [facility] for CK20 shows focal strong positivity, while negative for CK7. Overall histomorphology and immunophenotype is compatible with colorectal origin. Suggest clinical/radiologic correlation. Electronically Signed Xin Dawson M.D. Addendum Reported: 04/08/2017 Addendum Diagnosis Immunohistochemical stains for Mismatch Repair Protein Analysis performed at [facility] in [place], [place] ([id number]) and interpreted at [facility] show the following: RESULTS: MLH-1: INTACT NUCLEAR EXPRESSION MSH-2: INTACT NUCLEAR EXPRESSION MSH-6: INTACT NUCLEAR EXPRESSION PMS-2: INTACT NUCLEAR EXPRESSION INTERPRETATION: No loss of nuclear expression of MMR proteins: low probability of microsatellite instability-high (MSI-H). Molecular test is pending. Results will be reported separately. Xin Dawson M.D. Gross Description Received in formalin labeled "pelvic biopsy," are 3 veloz soft tissue fragments ranging from 0.1-0.5 cm in greatest dimension. The specimens are submitted in toto in one cassette. /04/03/201704/03/2017
== END 2017-04-03 13:00 | disposition home or self-care (01) ==
LOC: JRADIR 07:34
PROVIDERS: ATTEND Internal Medicine Hematology & Oncology
PROC: BW21ZZZ Computerized Tomography (CT Scan) of Abdomen and Pelvis (ICD-10-PCS; principal; 2017-04-03)
PROC: 0JB83ZX Excision of Abdomen Subcutaneous Tissue and Fascia, Percutaneous Approach, Diagnostic (ICD-10-PCS; 2017-04-03)
DX: C76.3 Malignant neoplasm of pelvis (principal); Z85.038 Personal history of other malignant neoplasm of large intestine
CPT/HCPCS: 36415; 76098-TC; 77012-TC; 85025; 85610; 87899; 88305-TC

== ENCOUNTER 2017-05-12 07:18 | Day surgery (SDC) | payer MEDICARE, OTHER ==
[2017-05-12] MEDS ORDERED: ATROPINE SO4 0.4 MG/1 ML VIAL SQ ONE (10:00)
[2017-05-12] MEDS ORDERED: PALONOSETRON HCL 0.25 MG in SODIUM CHLORIDE 50 ML IVPB ONE (10:00)
[2017-05-12] MEDS ORDERED: DEXAMETHASONE INJECTION 10 MG in SODIUM CHLORIDE 50 ML IVPB ONE (10:00)
[2017-05-12] MEDS ORDERED: SODIUM CHLORIDE 250 ML IV ONE (10:00)
[2017-05-12] MEDS ORDERED: IRINOTECAN HCL 380 MG in DEXTROSE 5%-WATER - 500 ML IVPB ONE (10:30)
[2017-05-12] MEDS ORDERED: LEUCOVORIN INJECTION - 836 MG in DEXTROSE 5%-WATER - 250 ML IVPB ONE (10:30)
[2017-05-12] MEDS ORDERED: FLUOROURACIL 5,025 MG in SODIUM CHLORIDE 0.7 ML CP ONE (12:30)
[2017-05-12] MEDS ORDERED: FLUOROURACIL 500 MG/10 ML VIAL IVPUSH ONE (12:30)
[2017-05-12] MEDS ORDERED: amLODIPine BESYLATE 5 MG TABLET (FP) PO ONE (12:45)
[2017-05-12 12:52] LABS: BASOPHIL 0.3 % (0-2.0); EOSINOPHIL 3.7 % (0-4.5); MCH 25.5 pg (25.7-33.7); MCHC 32.4 g/dl (32.0-36.0); MEAN CELL VOLUME 78.6 fl (80-96); MEAN PLT VOLUME 8.2 fl (7.5-11.1); NEUTROPHILS 69.9 % (42.8-82.8); PLATELET COUNT 231 K/MM3 (134-434); RDW 16.3 % (11.6-15.6)
[2017-05-12 13:23] LABS: ALBUMIN 3.5 g/dl (3.4-5.0); ALK PHOS 137 U/L (45-117); ANION GAP 7 (8-16); BILIRUBIN,DIRECT < 0.2 mg/dL (0.0-0.2); BILIRUBIN,TOTAL 0.4 mg/dL (0.2-1.0); CALCIUM 9.5 mg/dL (8.5-10.1); CO2 28 mmol/L (21-32); CREATININE 0.8 mg/dL (0.55-1.02); GLUCOSE,RANDOM 90 mg/dL (74-106); MAGNESIUM 2.1 mg/dL (1.8-2.4); SGOT/AST 17 U/L (15-37); SGPT/ALT 15 U/L (12-78); TOT PROT 7.8 g/dl (6.4-8.2)
[2017-05-12 17:41] VITALS: BP 152/80; PULSE 76; TEMP 98
[2017-05-12] MEDS ORDERED: PORTA CATH FLUSH 10 ML IVPUSH ONE (18:08)
== END 2017-05-12 17:45 | disposition home or self-care (01) ==
LOC: JONCCHEMO 07:18 → J7W 11:52 → JONCCHEMO 17:45
PROVIDERS: ATTEND Internal Medicine Hematology & Oncology
DX: Z51.11 Encounter for antineoplastic chemotherapy (principal); D48.7 Neoplasm of uncertain behavior of other specified sites; C76.3 Malignant neoplasm of pelvis; Z85.038 Personal history of other malignant neoplasm of large intestine
CPT/HCPCS: 36415; 80053; 80076; 82378; 83735; 85025; 96361; 96375; 96409; 96411; 96413; 96415; 96417; G0498; J2469

== ENCOUNTER 2017-05-14 07:15 | Day surgery (SDC) | payer MEDICARE, OTHER ==
[2017-05-14 15:49] VITALS: BP 150/86; PULSE 78; TEMP 98.2
[2017-05-14] MEDS ORDERED: PORTA CATH FLUSH 10 ML IVPUSH ONE (15:56)
== END 2017-05-14 15:10 | disposition home or self-care (01) ==
LOC: JONCNONCHE 07:15 → J7W 14:52 → JONCNONCHE 15:10
PROVIDERS: ATTEND Internal Medicine Hematology & Oncology
PROC: 0JPVXVZ Removal of Infusion Pump from Upper Extremity Subcutaneous Tissue and Fascia, External Approach (ICD-10-PCS; principal; 2017-05-14)
DX: Z53.8 Procedure and treatment not carried out for other reasons (principal)

== ENCOUNTER 2017-05-26 08:13 | Day surgery (SDC) | payer MEDICARE, OTHER ==
[~2017-05-26 08:13] MED LIST: SODIUM CHLORIDE 250 ML IV ONE
[2017-05-26] MEDS ORDERED: PALONOSETRON HCL 0.25 MG in SODIUM CHLORIDE 50 ML IVPB ONE (08:30)
[2017-05-26] MEDS ORDERED: ATROPINE SO4 0.4 MG/1 ML VIAL SQ ONE (08:30)
[2017-05-26] MEDS ORDERED: DEXAMETHASONE INJECTION 10 MG in SODIUM CHLORIDE 50 ML IVPB ONE (08:30)
[2017-05-26] MEDS ORDERED: IRINOTECAN HCL 380 MG in DEXTROSE 5%-WATER - 500 ML IVPB ONE (09:00)
[2017-05-26] MEDS ORDERED: LEUCOVORIN INJECTION - 836 MG in DEXTROSE 5%-WATER - 250 ML IVPB ONE (09:00)
[2017-05-26 10:14] LABS: BASOPHIL 0.5 % (0-2.0); EOSINOPHIL 4.9 % (0-4.5); MCH 26.3 pg (25.7-33.7); MCHC 32.7 g/dl (32.0-36.0); MEAN CELL VOLUME 80.4 fl (80-96); NEUTROPHILS 64.1 % (42.8-82.8); PLATELET COUNT 195 K/MM3 (134-434); RDW 16.4 % (11.6-15.6); WHITE BLOOD COUNT 4.5 K/mm3 (4.0-10.0)
[2017-05-26] MEDS ORDERED: FLUOROURACIL 2,500 MG/50 ML VIAL IVPUSH ONE ×2 (10:30→11:00)
[2017-05-26 10:36] LABS: ANION GAP 5 (8-16); CO2 28 mmol/L (21-32); GLUCOSE,RANDOM 107 mg/dL (74-106); MAGNESIUM 1.8 mg/dL (1.8-2.4)
[2017-05-26 10:44] LABS: BILIRUBIN,DIRECT < 0.2 mg/dL (0.0-0.2); SGOT/AST 14 U/L (15-37); SGPT/ALT 18 U/L (12-78)
[2017-05-26 10:45] LABS: ALK PHOS 131 U/L (45-117); BILIRUBIN,TOTAL 0.3 mg/dL (0.2-1.0); TOT PROT 6.6 g/dl (6.4-8.2)
[2017-05-26] MEDS ORDERED: FLUOROURACIL 5,025 MG in SODIUM CHLORIDE 0.7 ML IV ONE ×2 (10:45→11:15)
[2017-05-26 15:15] VITALS: BP 164/73; PULSE 78; TEMP 98
[2017-05-26] MEDS ORDERED: PORTA CATH FLUSH 10 ML IVPUSH ONE (15:15)
== END 2017-05-26 14:21 | disposition home or self-care (01) ==
LOC: JONCCHEMO 08:13 → J7W 09:10 → JONCCHEMO 14:21
PROVIDERS: ATTEND Internal Medicine Hematology & Oncology
DX: Z51.11 Encounter for antineoplastic chemotherapy (principal); D48.7 Neoplasm of uncertain behavior of other specified sites; C76.3 Malignant neoplasm of pelvis; Z85.038 Personal history of other malignant neoplasm of large intestine
CPT/HCPCS: 36415; 80048; 80076; 83735; 85025; 96361; 96367; 96375; 96409; 96411; 96413; 96415; 96417; G0498; J2469

== ENCOUNTER 2017-05-28 07:30 | Day surgery (SDC) | payer MEDICARE, OTHER ==
[2017-05-28 15:38] VITALS: BP 156/79; PULSE 68; TEMP 97.6
[2017-05-28] MEDS ORDERED: PORTA CATH FLUSH 10 ML IVPUSH ONE (15:38)
== END 2017-05-28 14:05 | disposition home or self-care (01) ==
LOC: JONCNONCHE 07:30 → J7W 16:14
PROVIDERS: ATTEND Internal Medicine Hematology & Oncology
PROC: 0JPVXVZ Removal of Infusion Pump from Upper Extremity Subcutaneous Tissue and Fascia, External Approach (ICD-10-PCS; principal; 2017-05-28)
DX: Z53.8 Procedure and treatment not carried out for other reasons (principal)

== ENCOUNTER 2017-06-09 07:23 | Day surgery (SDC) | payer MEDICARE, OTHER ==
[2017-06-09] MEDS ORDERED: SODIUM CHLORIDE 250 ML IV ONE (08:00)
[2017-06-09] MEDS ORDERED: PALONOSETRON HCL 0.25 MG in SODIUM CHLORIDE 50 ML IVPB ONE (08:30)
[2017-06-09] MEDS ORDERED: DEXAMETHASONE INJECTION 10 MG in SODIUM CHLORIDE 50 ML IVPB ONE (08:30)
[2017-06-09] MEDS ORDERED: ATROPINE SO4 0.4 MG/1 ML VIAL SQ ONE (08:30)
[2017-06-09] MEDS ORDERED: IRINOTECAN HCL 380 MG in DEXTROSE 5%-WATER - 500 ML IVPB ONE (09:00)
[2017-06-09] MEDS ORDERED: LEUCOVORIN INJECTION - 836 MG in DEXTROSE 5%-WATER - 250 ML IVPB ONE (09:00)
[2017-06-09] MEDS ORDERED: FLUOROURACIL 2,500 MG/50 ML VIAL IVPUSH ONE (10:30)
[2017-06-09 10:37] LABS: BASO % 0.5 % (0-2.0); EOS % 2.3 % (0-4.5); MCH 26.5 pg (25.7-33.7); MCHC 32.5 g/dl (32.0-36.0); MEAN CELL VOLUME 81.3 fl (80-96); MEAN PLT VOLUME 7.6 fl (7.5-11.1); NEUT % 67.2 % (42.8-82.8); PLATELET COUNT 234 K/MM3 (134-434); RDW 18.8 % (11.6-15.6); WHITE BLOOD COUNT 4.8 K/mm3 (4.0-10.0)
[2017-06-09] MEDS ORDERED: FLUOROURACIL 5,025 MG in SODIUM CHLORIDE 0.7 ML CP ONE (10:40)
[2017-06-09 11:04] LABS: ALBUMIN 3.4 g/dl (3.4-5.0); ALK PHOS 158 U/L (45-117); ANION GAP 7 (8-16); BILIRUBIN,DIRECT < 0.2 mg/dL (0.0-0.2); BILIRUBIN,TOTAL 0.3 mg/dL (0.2-1.0); CALCIUM 8.4 mg/dL (8.5-10.1); CO2 27 mmol/L (21-32); CREATININE 1.1 mg/dL (0.55-1.02); GLUCOSE,RANDOM 90 mg/dL (74-106); MAGNESIUM 2.1 mg/dL (1.8-2.4); SGOT/AST 16 U/L (15-37); SGPT/ALT 21 U/L (12-78)
[2017-06-09] MEDS ORDERED: ATROPINE SO4 0.4 MG/1 ML VIAL IVPUSH ONE (12:45)
[2017-06-09 17:40] VITALS: BP 157/69; PULSE 64; TEMP 98.4
[2017-06-09] MEDS ORDERED: PORTA CATH FLUSH 10 ML IVPUSH ONE (17:52)
== END 2017-06-09 17:30 | disposition home or self-care (01) ==
LOC: JONCCHEMO 07:23 → J7W 10:05 → JONCCHEMO 17:30
PROVIDERS: ATTEND Internal Medicine Hematology & Oncology
PROC: 3E04305 Introduction of Other Antineoplastic into Central Vein, Percutaneous Approach (ICD-10-PCS; principal; 2017-06-09)
PROC: 3E04305 Introduction of Other Antineoplastic into Central Vein, Percutaneous Approach (ICD-10-PCS; 2017-06-09)
PROC: 3E043GC Introduction of Other Therapeutic Substance into Central Vein, Percutaneous Approach (ICD-10-PCS; 2017-06-09)
PROC: 3E0437Z Introduction of Electrolytic and Water Balance Substance into Central Vein, Percutaneous Approach (ICD-10-PCS; 2017-06-09)
PROC: 3E013GC Introduction of Other Therapeutic Substance into Subcutaneous Tissue, Percutaneous Approach (ICD-10-PCS; 2017-06-09)
DX: Z51.11 Encounter for antineoplastic chemotherapy (principal); C18.9 Malignant neoplasm of colon, unspecified; C78.00 Secondary malignant neoplasm of unspecified lung; C77.9 Secondary and unspecified malignant neoplasm of lymph node, unspecified
CPT/HCPCS: 36415; 80048; 80076; 83735; 85025; 96361; 96367; 96372; 96375; 96409; 96413; 96415; 96417; G0498; J2469

== ENCOUNTER 2017-06-11 07:48 | Day surgery (SDC) | payer MEDICARE, OTHER ==
[2017-06-11 13:26] VITALS: BP 130/80; PULSE 69; TEMP 97.8
== END 2017-06-11 12:55 | disposition home or self-care (01) ==
LOC: JONCNONCHE 07:48 → J7W 12:40 → JONCNONCHE 12:55
PROVIDERS: ATTEND Internal Medicine Hematology & Oncology
PROC: 0JPVXVZ Removal of Infusion Pump from Upper Extremity Subcutaneous Tissue and Fascia, External Approach (ICD-10-PCS; principal; 2017-06-11)
DX: Z53.8 Procedure and treatment not carried out for other reasons (principal); C18.9 Malignant neoplasm of colon, unspecified

== ENCOUNTER 2017-06-24 11:07 | Emergency (ER) | payer MEDICARE, OTHER ==
[2017-06-24 11:13] VITALS: PULSE 68; BMI 40.2
[2017-06-24] MEDS ORDERED: ACETAMINOPHEN 325 MG TABLET (FP) ONE (13:27)
--- NOTE | 2017-06-24 13:31 | PDOC ---
History of Present Illness - General Chief Complaint: Weakness Stated Complaint: CHEMO PT PCP SENT, WEAKNESS Time Seen by Provider: 06/24/17 13:05 History Source: Patient - History of Present Illness Initial Comments: 06/24/17 13:24 Patient is a 61F with history of colon cancer (s/p surgery in 2011, mets to lungs and pelvis, current on unknown chemotherapeutic agent) here today complaining of 5 days of weakness with a positive flu contact at home. Patient reports having fevers, cough, drainage from nose, shortness of breath and muscle aches. She denies chest pain, headache, nausea, vomiting, and diarrhea. She states that the chemotherapy causes her to be constipated. Denies abdominal pain. Past History - Past Medical History Allergies/Adverse Reactions: Allergies Allergy/AdvReac Type Severity Reaction Status Date / Time acetaminophen [From Tylenol] Allergy Severe Verified 06/24/17 11:08 ciprofloxacin [From Cipro] Allergy Severe Verified 06/24/17 11:08 ciprofloxacin HCl Allergy Severe Verified 06/24/17 11:08 [From Cipro] loratadine [From Claritin] Allergy Severe Verified 06/24/17 11:08 Penicillins Allergy Severe Verified 06/24/17 11:08 Home Medications: Ambulatory Orders Enalapril Maleate [Vasotec] 20 mg PO DAILY 12/24/16 Levothyroxine [Synthroid -] 150 mcg PO DAILY 12/24/16 Anemia: No Asthma: No Cancer: Yes (lung, lumph nodes , pelvic) CVA: No COPD: No CHF: No DVT: No Dementia: No Diabetes: No GI Disorders: No Disorders: No HTN: Yes Hypercholesterolemia: No Liver Disease: No Seizures: No Thyroid Disease: Yes - Surgical History Abdominal Surgery: Yes (COLON CANCER 2011) Appendectomy: No Cardiac Surgery: No Cholecystectomy: Yes Lung Surgery: No Neurologic Surgery: No Orthopedic Surgery: No - Suicide/Smoking/Psychosocial Hx Smoking History: Never smoked Information on smoking cessation initiated: No Hx Alcohol Use: No Drug/Substance Use Hx: No Substance Use Type: None Hx Substance Use Treatment: No Review of Systems - Review of Systems Comments:: 06/24/17 13:27 GENERAL/CONSTITUTIONAL: Positive for fevers, chills and weakness. HEAD, EYES, EARS, NOSE AND THROAT: No change in vision. No sore throat. CARDIOVASCULAR: No chest pain. Positive for shortness of breath. RESPIRATORY: Positive for cough. Negative for wheezing, or hemoptysis. GASTROINTESTINAL: No nausea, vomiting, diarrhea or constipation. GENITOURINARY: No dysuria, frequency, or change in urination. MUSCULOSKELETAL: Positive for pain in upper leg and body aches. SKIN: No rash NEUROLOGIC: No headache, vertigo, loss of consciousness, or change in strength/ sensation. ENDOCRINE: No increased thirst. No abnormal weight change ALLERGIC/IMMUNOLOGIC: No hives or skin allergy. *Physical Exam - Vital Signs Last Vital Signs Temp Pulse Resp BP Pulse Ox 98.0 F 68 18 155/80 100 06/24/17 11:10 06/24/17 11:10 06/24/17 11:10 06/24/17 11:10 06/24/17 11:10 - Physical Exam Comments: 06/24/17 13:29 GENERAL: Awake, alert, and fully oriented, in no acute distress HEAD: No signs of trauma, normocephalic, atraumatic EYES: PERRLA, EOMI, sclera anicteric, conjunctiva clear ENT: Auricles normal inspection, hearing grossly normal, nares patent, oropharynx clear without exudates. Moist mucosa LUNGS: No distress, speaks full sentences, coarse breath sounds in left lung limon, clear on right HEART: Regular rate and rhythm, normal S1 and S2, no murmurs, rubs or gallops, peripheral pulses normal and equal bilaterally. EXTREMITIES: Normal inspection, Normal range of motion, no edema. No clubbing or cyanosis. NEUROLOGICAL: Cranial nerves II through XII grossly intact. Normal speech, no focal sensorimotor deficits SKIN: Warm, Dry, normal turgor, no rashes or lesions noted. ED Treatment Course - LABORATORY CBC & Chemistry Diagram: 06/24/17 13:10 06/24/17 13:10 - RADIOLOGY Radiology Studies Ordered: Category Date Time Status CHEST PA & LAT [RAD] Stat Radiology 06/24/17 13:18 Ordered Medical Decision Making - Medical Decision Making 06/24/17 13:31 Patient is 61F with history of colon cancer, HTN, and hypothyroidism here today with shortness of breath with URI symptoms. History consistent with influenza. Vital signs stable and normal. PE notable for coarse breath sounds on left, but also has history of mets to lungs. DDx includes, but is not limited to: URI, pneumonia, influenza. Will evaluate with flu swab, cbc, cmp, trop, cxr, ekg. 06/24/17 14:02 EKG shows normal sinus rhythm, normal rate, normal axis. No st elevations/ depressions. No t-wave abnormalities. Normal QTc, NM, QRS intervals. 06/24/17 14:52 Laboratory Tests 06/24/17 06/24/17 13:10 13:10 WBC 3.7 L Hgb 10.9 Hct 34.4 Plt Count 224 BUN 18 Creatinine 1.0 Troponin I < 0.02 CBC normal, patient is not neutropenic. CMP normal, trop neg. Flu negative. CXR shows no acute cardiopulmonary process. Patient most likely has viral URI. Will discharge with PCP follow-up. *DC/Admit/Observation/Transfer Diagnosis at time of Disposition: Cough - Discharge Dispostion Disposition: HOME Condition at time of disposition: Good Admit: No - Referrals - Patient Instructions Printed Discharge Instructions: DI for Common Cold Additional Instructions: Please call to make an appointment with your PCP today. Please return if you have any new, worsening or concerning symptoms. Print Language: YORUBA - Post Discharge Activity
[2017-06-24] MEDS ORDERED: SODIUM CHLORIDE 500 ML IV STA (13:51)
[2017-06-24] MEDS ORDERED: ALBUTEROL SO4 2.5/IPRATROPIUM 0.5 INH SOL 3 ML VIAL.NEB. NEB ONE ×2 (13:52→14:10)
[2017-06-24 13:54] LABS: BASO % 0.4 % (0-2.0); EOS % 2.5 % (0-4.5); HEMATOCRIT 34.4 % (32.4-45.2); HEMOGLOBIN 10.9 GM/dL (10.7-15.3); LYMPH % 29.3 % (8-40); MCH 26.5 pg (25.7-33.7); MCHC 31.7 g/dl (32.0-36.0); MEAN CELL VOLUME 83.7 fl (80-96); MEAN PLT VOLUME 8.4 fl (7.5-11.1); MONO % 12.8 % (3.8-10.2); PLATELET COUNT 224 K/MM3 (134-434); RBC 4.11 M/mm3 (3.60-5.2); RDW 21.3 % (11.6-15.6); WHITE BLOOD COUNT 3.7 K/mm3 (4.0-10.0)
--- NOTE | 2017-06-24 13:59 | PDOC ---
Attending Attestation - Resident Resident Name: AmandaSebas - ED Attending Attestation I have performed the following: I have examined & evaluated the patient, The case was reviewed & discussed with the resident, I agree w/resident's findings & plan, Exceptions are as noted - HPI HPI: 06/24/17 13:55 61-year-old female with history of metastatic colon CA on maintenance chemotherapy every other week presents with 5 days of worsening URI symptoms with nasal congestion, nonproductive cough, but notable dyspnea on exertion. No fevers or chills, had one episode of night sweats last night, no other travel. Positive sick contacts at home, family diagnosed with + influenza. Pt not vaccinated. - Physicial Exam PE: 06/24/17 13:57 Vital signs stable, O2 sat 100% on room air Seated comfortably in stretcher, speaking full sentences Airways intact, trachea midline Lungs are clear, no wheezing, no accessory muscle use, no focally decreased breath sounds. No edema - Medical Decision Making 06/24/17 13:57 Patient seen and evaluated with the resident. I agree with the overall evaluation, assessment, and management with the following summary of visit: 61-year-old female on chemotherapy presents with upper respiratory infection symptoms for 5 days, worsening dyspnea. Question but rule out influenza given the exposure, rule out underlying pneumonia, rule out neutropenia. Despite the underlying cancer, low suspicion that this is PE given the URI symptoms. Labs, cultures, influenza swab Chest x-ray Trial of nebulizer Reassess Heart Score/ECG Review #1 ECG reviewed & interpreted by me at: 13:49 General ECG Interpretation: Sinus Rhythm, Normal Rate (60), Normal Intervals ( qtc 404), No acute ischemic changes
[2017-06-24 14:16] LABS: INR 1.06 (0.82-1.09)
[2017-06-24 14:18] LABS: ALBUMIN 3.4 g/dl (3.4-5.0); ANION GAP 10 (8-16); BILIRUBIN,TOTAL 0.3 mg/dL (0.2-1.0); BLOOD UREA NITROGEN 18 mg/dL (7-18); CALCIUM 8.5 mg/dL (8.5-10.1); CHLORIDE 105 mmol/L (98-107); CO2 26 mmol/L (21-32); GLUCOSE,RANDOM 115 mg/dL (74-106); MAGNESIUM 2.2 mg/dL (1.8-2.4); POTASSIUM 4.2 mmol/L (3.5-5.1); SGOT/AST 36 U/L (15-37); SGPT/ALT 36 U/L (12-78); SODIUM 141 mmol/L (136-145)
[2017-06-24 14:20] LABS: ALK PHOS 165 U/L (45-117); TOT PROT 6.9 g/dl (6.4-8.2)
[2017-06-24 15:10] VITALS: BP 147/79
[2017-06-24 15:16] VITALS: TEMP 97.9
--- NOTE | 2017-06-25 09:30 | EKG ---
Test Reason : Blood Pressure : / mmHG Vent. Rate : 060 BPM Atrial Rate : 060 BPM P-R Int : 154 ms QRS Dur : 082 ms QT Int : 404 ms P-R-T Axes : 048 011 033 degrees QTc Int : 404 ms NORMAL SINUS RHYTHM NORMAL ECG Confirmed by MD Irving Edward ([id number]) on 06/25/2017 9:30:29 AM Referred By: Confirmed By:Javier Irving MD
== END 2017-06-24 15:11 | disposition home or self-care (01) ==
LOC: JER 11:07
PROC: 3E0337Z Introduction of Electrolytic and Water Balance Substance into Peripheral Vein, Percutaneous Approach (ICD-10-PCS; principal; 2017-06-24)
PROC: 3E0F7GC Introduction of Other Therapeutic Substance into Respiratory Tract, Via Natural or Artificial Opening (ICD-10-PCS; 2017-06-24)
DX: J00 Acute nasopharyngitis [common cold] (principal); R05 Cough; C18.9 Malignant neoplasm of colon, unspecified; Z85.118 Personal history of other malignant neoplasm of bronchus and lung; Z85.53 Personal history of malignant neoplasm of renal pelvis; I10 Essential (primary) hypertension; E03.9 Hypothyroidism, unspecified
CPT/HCPCS: 36415; 71046-TC; 80053; 82550; 83735; 84484; 85025; 85610; 87040; 87804; 93005; 93010; 94640; 96360; 99283-25

== ENCOUNTER 2017-06-25 08:08 | Day surgery (SDC) | payer MEDICARE, OTHER ==
[~2017-06-25 08:08] MED LIST changes: +ATROPINE SO4 0.4 MG/1 ML VIAL IVPUSH ONE; +DEXAMETHASONE INJECTION 10 MG in SODIUM CHLORIDE 50 ML IVPB ONE; +FLUOROURACIL 2,500 MG/50 ML VIAL IVPUSH ONE; +FLUOROURACIL 5,025 MG in SODIUM CHLORIDE 0.7 ML CP ONE; +IRINOTECAN HCL 380 MG in DEXTROSE 5%-WATER - 500 ML IVPB ONE; +LEUCOVORIN INJECTION - 836 MG in DEXTROSE 5%-WATER - 250 ML IVPB ONE; +PALONOSETRON HCL 0.25 MG in SODIUM CHLORIDE 50 ML IVPB ONE; +PALONOSETRON HCL 0.25 MG/5 ML VIAL IVPB ONE; +PALONOSETRON HCL 0.25 MG/5 ML VIAL IVPUSH ONE
[2017-06-25] MEDS ORDERED: SODIUM CHLORIDE 250 ML IV ONE (12:45)
[2017-06-25] MEDS ORDERED: PALONOSETRON HCL 0.25 MG/5 ML VIAL IVPUSH ONE (13:00)
[2017-06-25] MEDS ORDERED: ATROPINE SO4 0.4 MG/1 ML VIAL IVPUSH ONE (13:00)
[2017-06-25] MEDS ORDERED: DEXAMETHASONE SOD PHOSPHATE 10 MG/1 ML VIAL IVPUSH ONE (13:00)
[2017-06-25] MEDS ORDERED: LEUCOVORIN INJECTION - 836 MG in DEXTROSE 5%-WATER - 250 ML IVPB ONE (14:00)
[2017-06-25] MEDS ORDERED: IRINOTECAN HCL 380 MG in DEXTROSE 5%-WATER - 500 ML IVPB ONE (14:00)
[2017-06-25] MEDS ORDERED: FLUOROURACIL 5,025 MG in SODIUM CHLORIDE 0.7 ML CP ONE (16:00)
[2017-06-25] MEDS ORDERED: FLUOROURACIL 2,500 MG/50 ML VIAL IVPUSH ONE (16:00)
[2017-06-25 19:07] VITALS: BP 153/72; PULSE 60; TEMP 98
== END 2017-06-25 16:50 | disposition home or self-care (01) ==
LOC: JONCCHEMO 08:08 → J7W 11:58 → JONCCHEMO 16:50
PROVIDERS: ATTEND Internal Medicine Hematology & Oncology
DX: Z51.11 Encounter for antineoplastic chemotherapy (principal); C18.9 Malignant neoplasm of colon, unspecified
CPT/HCPCS: 96361; 96375; 96413; 96415; 96417; G0498; J2469

== ENCOUNTER 2017-06-27 07:44 | Day surgery (SDC) | payer MEDICARE, OTHER ==
[2017-06-27 17:16] VITALS: BP 117/60; PULSE 62; TEMP 98
[2017-06-27] MEDS ORDERED: PORTA CATH FLUSH 10 ML IVPUSH ONE (17:33)
== END 2017-06-27 15:00 | disposition home or self-care (01) ==
LOC: JONCNONCHE 07:44 → J7W 14:51 → JONCNONCHE 15:00
PROVIDERS: ATTEND Internal Medicine Hematology & Oncology
PROC: 0JPVXVZ Removal of Infusion Pump from Upper Extremity Subcutaneous Tissue and Fascia, External Approach (ICD-10-PCS; principal; 2017-06-27)
DX: Z53.8 Procedure and treatment not carried out for other reasons (principal)

== ENCOUNTER 2017-07-09 14:47 | Inpatient (IN) | payer MEDICARE, OTHER ==
[2017-07-09 14:55] VITALS: BMI 39.9
--- NOTE | 2017-07-09 14:57 | PDOC ---
Rapid Medical Evaluation Time Seen by Provider: 07/09/17 14:52 Medical Evaluation: Allergies Allergy/AdvReac Type Severity Reaction Status Date / Time acetaminophen [From Tylenol] Allergy Severe Verified 06/24/17 11:08 ciprofloxacin [From Cipro] Allergy Severe Verified 06/24/17 11:08 ciprofloxacin HCl Allergy Severe Verified 06/24/17 11:08 [From Cipro] loratadine [From Claritin] Allergy Severe Verified 06/24/17 11:08 Penicillins Allergy Severe Verified 06/24/17 11:08 07/09/17 14:52 I have performed a brief in-person evaluation of this patient. The patient presents with a chief complaint of: abd pain and rectal bleed. h/o colon CA s/p resection 11/2016 Pertinent physical exam findings: ABD: soft and diffusely tender. Nondistended. +BS PULM: Lungs CTAB. CARDS: RRR I have ordered the following: CBC, CMP, coags, T&S, ua The patient will proceed to the ED for further evaluation. Discharge Disposition - Diagnosis Abdominal pain - Referrals Referrals: Prieto Kaiser MD [Primary Care Provider] - - Patient Instructions - Post Discharge Activity
[2017-07-09 15:46] LABS: BASO % 0.3 % (0-2.0); HEMATOCRIT 34.5 % (32.4-45.2); HEMOGLOBIN 11.3 GM/dL (10.7-15.3); LYMPH % 37.1 % (8-40); MCHC 32.9 g/dl (32.0-36.0); MEAN PLT VOLUME 8.9 fl (7.5-11.1); MONO % 11.1 % (3.8-10.2); NEUT % 48.5 % (42.8-82.8); PLATELET COUNT 249 K/MM3 (134-434); RBC 4.06 M/mm3 (3.60-5.2); RDW 21.7 % (11.6-15.6); WHITE BLOOD COUNT 3.6 K/mm3 (4.0-10.0)
[2017-07-09 15:49] LABS: ALBUMIN 3.4 g/dl (3.4-5.0); ALK PHOS 183 U/L (45-117); ANION GAP 11 (8-16); BILIRUBIN,TOTAL 0.8 mg/dL (0.2-1.0); BLOOD UREA NITROGEN 20 mg/dL (7-18); CALCIUM 8.6 mg/dL (8.5-10.1); CHLORIDE 106 mmol/L (98-107); CO2 23 mmol/L (21-32); GLUCOSE,RANDOM 103 mg/dL (74-106); SGOT/AST 19 U/L (15-37); SGPT/ALT 23 U/L (12-78); SODIUM 140 mmol/L (136-145); TOT PROT 7.3 g/dl (6.4-8.2)
[2017-07-09 16:06] LABS: URINE APPEARANCE SLCLOUDY; URINE BILIRUBIN NEGATIVE (NEGATIVE); URINE BLOOD 2+ (NEGATIVE); URINE COLOR YELLOW; URINE GLUCOSE (UA) NEGATIVE (NEGATIVE); URINE KETONE NEGATIVE (NEGATIVE); URINE NITRITE NEGATIVE (NEGATIVE)
[2017-07-09 16:15] LABS: INR 1.09 (0.82-1.09); PROTHROMBIN TIME (PATIENT) 12.3 SEC (9.98-11.88)
[2017-07-09 16:18] LABS: URINE LEUK ESTERASE 2+ (NEGATIVE); URINE PROTEIN 1+ (NEGATIVE)
[2017-07-09 16:40] LABS: EPI CELLS RARE /HPF (FEW); URINE MUCUS RARE
--- NOTE | 2017-07-09 18:34 | PDOC ---
History of Present Illness - General Chief Complaint: Rectal Bleed Stated Complaint: SENT BY PCP Time Seen by Provider: 07/09/17 14:52 - History of Present Illness Initial Comments: 07/09/17 18:33 Patient is a 61 y.o. female with a PMH of Colon CA (s/p resection 2011 w/ lung and pelvic metases - currently on chemotherapy, last chemo 3 weeks previous) as well as multiple ventral hernias presents at the behest of her PCP for abdominal pain and rectal bleeding. Patient states the abdominal cramping is diffuse, constant and she cannot identify and triggering/relieving factors. Patient denies associated vomiting, but does endorse nausea and decreased PO intake 2/2 to her discomfort. Patient further denies fevers/chills as well as shortness of breath or chest pain. Allergy: Acetaminophen, Ciprofloxacin, Loratadine, Penicillin Surgical: Colonic resection (2011) PMD: Dr. Kaiser Past History - Past Medical History Allergies/Adverse Reactions: Allergies Allergy/AdvReac Type Severity Reaction Status Date / Time acetaminophen [From Tylenol] Allergy Severe Verified 07/09/17 14:55 ciprofloxacin [From Cipro] Allergy Severe Verified 07/09/17 14:55 ciprofloxacin HCl Allergy Severe Verified 07/09/17 14:55 [From Cipro] loratadine [From Claritin] Allergy Severe Verified 07/09/17 14:55 Penicillins Allergy Severe Verified 07/09/17 14:55 Home Medications: Ambulatory Orders Enalapril Maleate [Vasotec] 20 mg PO DAILY 12/24/16 Levothyroxine [Synthroid -] 150 mcg PO DAILY 12/24/16 Anemia: No Asthma: No Cancer: Yes (lung, lumph nodes , pelvic, COLON) CVA: No COPD: No CHF: No DVT: No Dementia: No Diabetes: No GI Disorders: No Disorders: No HTN: Yes Hypercholesterolemia: No Liver Disease: No Seizures: No Thyroid Disease: Yes - Surgical History Abdominal Surgery: Yes (COLON CANCER 2011) Appendectomy: No Cardiac Surgery: No Cholecystectomy: Yes Lung Surgery: No Neurologic Surgery: No Orthopedic Surgery: No - Suicide/Smoking/Psychosocial Hx Smoking History: Never smoked Hx Alcohol Use: No Drug/Substance Use Hx: No Substance Use Type: None Hx Substance Use Treatment: No Review of Systems - Review of Systems Constitutional: No: Chills, Fever Respiratory: No: Shortness of Breath Cardiac (ROS): No: Chest Pain ABD/GI: Yes: Nausea, Poor Appetite, Poor Fluid Intake, Rectal Bleeding. No: Constipated, Diarrhea, Vomiting : No: Burning, Dysuria All Other Systems: Reviewed and Negative *Physical Exam - Vital Signs Last Vital Signs Temp Pulse Resp BP Pulse Ox 98.1 F 90 20 148/55 100 07/09/17 14:50 07/09/17 14:50 07/09/17 14:50 07/09/17 14:50 07/09/17 14:50 - Physical Exam General Appearance: Yes: Nourished, Obese Neck: positive: Trachea midline, Supple Respiratory/Chest: positive: Lungs Clear Cardiovascular: positive: S1, S2 Gastrointestinal/Abdominal: positive: Normal Bowel Sounds, Tender (Diffuse abdominal tenderness in all 4 quadrants), Soft, Hernia (multiple hernias palpated in abdomen). negative: Distended, Guarding, Rebound, Mass Rectal Exam: positive: heme positive stool. negative: hemorrhoids Musculoskeletal: negative: CVA Tenderness (R), CVA Tenderness (L) Extremity: positive: Normal Capillary Refill, Normal Inspection Neurologic: positive: Fully Oriented, Alert ED Treatment Course - LABORATORY CBC & Chemistry Diagram: 07/10/17 06:05 07/10/17 06:05 - ADDITIONAL ORDERS Additional order review: Laboratory Results 07/09/17 07/09/17 07/09/17 15:20 15:20 15:20 PT with INR INR Sodium 140 Potassium 4.0 Chloride 106 Carbon Dioxide 23 Anion Gap 11 BUN 20 H Creatinine 1.0 Creat Clearance w eGFR 56.75 Random Glucose 103 Calcium 8.6 Total Bilirubin 0.8 D AST 19 ALT 23 Alkaline Phosphatase 183 H Total Protein 7.3 Albumin 3.4 Urine Color Yellow Urine Appearance Slcloudy Urine pH 5.0 Ur Specific [place] 1.024 Urine Protein 1+ H Urine Glucose (UA) Negative Urine Ketones Negative Urine Blood 2+ H Urine Nitrite Negative Urine Bilirubin Negative Urine Urobilinogen 2.0 H Ur Leukocyte Esterase 2+ H Urine WBC (Auto) 105 Urine RBC (Auto) 90 Ur Epithelial Cells Rare Urine Mucus Rare Blood Type A POSITIVE Antibody Screen Negative 07/09/17 15:20 PT with INR 12.30 H INR 1.09 Sodium Potassium Chloride Carbon Dioxide Anion Gap BUN Creatinine Creat Clearance w eGFR Random Glucose Calcium Total Bilirubin AST ALT Alkaline Phosphatase Total Protein Albumin Urine Color Urine Appearance Urine pH Ur Specific [place] Urine Protein Urine Glucose (UA) Urine Ketones Urine Blood Urine Nitrite Urine Bilirubin Urine Urobilinogen Ur Leukocyte Esterase Urine WBC (Auto) Urine RBC (Auto) Ur Epithelial Cells Urine Mucus Blood Type Antibody Screen 07/09/17 15:20 RBC 4.06 MCV 85.0 MCHC 32.9 RDW 21.7 H MPV 8.9 Neutrophils % 48.5 Lymphocytes % 37.1 D Monocytes % 11.1 H Eosinophils % 3.0 Basophils % 0.3 Medical Decision Making - Medical Decision Making 07/09/17 18:40 Patient is a 61 y.o. female with a PMH of Colon CA w/mets (currently undergoing chemotherapy) who presents to our ED c/o diffuse abdominal cramping as well as bright red rectal bleed. On PE patient is hemodynamically stable and exhibits diffuse abdominal tenderness w/visible rectal bleeding. Initial clinical suspicion for GI bleed 2/2 to polyps/hemorrhoids -- low clinical suspicion for acute abdomen (patient non-toxic appearing, no leukocytosis, (+) BS) vs. GI malignancy/mets. Will hydrate and CT scan abdomen. 07/09/17 18:55 Patient to be signed out to Dr. Grider (Resident) and Dr. Stein (Attending ). *DC/Admit/Observation/Transfer Diagnosis at time of Disposition: Rectal bleed Abdominal pain Qualifiers: Abdominal location: unspecified location Qualified Code(s): R10.9 - Unspecified abdominal pain UTI (urinary tract infection) Qualifiers: Urinary tract infection type: site unspecified Hematuria presence: with hematuria Qualified Code(s): N39.0 - Urinary tract infection, site not specified Colon cancer Qualifiers: Colon location: unspecified part of colon Qualified Code(s): C18.9 - Malignant neoplasm of colon, unspecified Ventral hernia Qualifiers: Obstruction and gangrene presence: without obstruction or gangrene Qualified Code(s): K43.9 - Ventral hernia without obstruction or gangrene - Discharge Dispostion Condition at time of disposition: Guarded - Referrals - Patient Instructions - Post Discharge Activity
--- NOTE | 2017-07-09 18:45 | PDOC ---
Attending Attestation - Resident Resident Name: Samantha Rendon - ED Attending Attestation I have performed the following: I have examined & evaluated the patient, The case was reviewed & discussed with the resident, I agree w/resident's findings & plan, Exceptions are as noted - HPI HPI: 61 yo F history colon CA s/p resection (currently on chemo) and with multiple ventral hernias presents with abd pain. She was seen by Dr. Kaiser earlier today , referred to the ED for diffuse abd pain in the setting of multiple prior surgeries. Denies vomiting and diarrhea, but she does c/o nausea. - Physicial Exam PE: GENERAL: Awake, alert, and fully oriented, in no acute distress HEAD: No signs of trauma EYES: PERRLA, EOMI, sclera anicteric, conjunctiva clear ENT: Auricles normal inspection, hearing grossly normal, nares patent, oropharynx clear without exudates. Moist mucosa NECK: Normal ROM, supple, no lymphadenopathy, JVD, or masses LUNGS: Breath sounds equal, clear to auscultation bilaterally. No wheezes, and no crackles HEART: Regular rate and rhythm, normal S1 and S2, no murmurs, rubs or gallops ABDOMEN: Soft, +large midline scar with multiple small ventral hernias and tenderness to palpation. Normoactive bowel sounds. No guarding, no rebound. No masses. EXTREMITIES: Normal range of motion, no edema. No clubbing or cyanosis. No cords, erythema, or tenderness NEUROLOGICAL: Cranial nerves II through XII grossly intact. Normal speech, normal gait SKIN: Warm, Dry, normal turgor, no rashes or lesions noted. - Medical Decision Making Pt with abd pain, history of multiple surgeries in the past. Will obtain CT to further evaluate, r/o SBO.
[2017-07-09] MEDS ORDERED: SODIUM CHLORIDE 0.9% 1000 ML INFUS.BAG IV ONE (18:46)
[2017-07-09] MEDS ORDERED: ACETAMINOPHEN 1000 MG/100 ML VIAL (NON FORMULARY) IVPB ONE (18:47)
[2017-07-09] MEDS ORDERED: SULFAMETHOXAZOLE/TRIMETHOPRIM 800MG/160MG D.S. TABLET PO ONE (19:16)
--- NOTE | 2017-07-09 19:25 | PDOC ---
*Physical Exam - Vital Signs Last Vital Signs Temp Pulse Resp BP Pulse Ox 98.1 F 90 20 148/55 100 07/09/17 14:50 07/09/17 14:50 07/09/17 14:50 07/09/17 14:50 07/09/17 14:50 Care signed out to me by Dr. Rendon at the beginning of my shift. The patient is a 61 YOF with h/o multiple abdominal hernias, colon cancer s/p resection, and current chemo who was sent in by PCP Dr. Kaiser for diffuse abdominal pain worse in the LLQ. FOBT positive, UA positive, Bactrim ordered IV, patient starting drinking PO contrast at 7:25p and will go for CT at 9:25p. ED Treatment Course - LABORATORY CBC & Chemistry Diagram: 07/14/17 07:30 07/14/17 07:30 - ADDITIONAL ORDERS Additional order review: Laboratory Results 07/09/17 07/09/17 07/09/17 18:00 15:20 15:20 PT with INR INR Sodium Potassium Chloride Carbon Dioxide Anion Gap BUN Creatinine Creat Clearance w eGFR Random Glucose Calcium Total Bilirubin AST ALT Alkaline Phosphatase Total Protein Albumin Urine Color Yellow Urine Appearance Slcloudy Urine pH 5.0 Ur Specific [place] 1.024 Urine Protein 1+ H Urine Glucose (UA) Negative Urine Ketones Negative Urine Blood 2+ H Urine Nitrite Negative Urine Bilirubin Negative Urine Urobilinogen 2.0 H Ur Leukocyte Esterase 2+ H Urine WBC (Auto) 105 Urine RBC (Auto) 90 Ur Epithelial Cells Rare Urine Mucus Rare Stool Occult Blood Trace Blood Type A POSITIVE Antibody Screen Negative 07/09/17 07/09/17 15:20 15:20 PT with INR 12.30 H INR 1.09 Sodium 140 Potassium 4.0 Chloride 106 Carbon Dioxide 23 Anion Gap 11 BUN 20 H Creatinine 1.0 Creat Clearance w eGFR 56.75 Random Glucose 103 Calcium 8.6 Total Bilirubin 0.8 D AST 19 ALT 23 Alkaline Phosphatase 183 H Total Protein 7.3 Albumin 3.4 Urine Color Urine Appearance Urine pH Ur Specific [place] Urine Protein Urine Glucose (UA) Urine Ketones Urine Blood Urine Nitrite Urine Bilirubin Urine Urobilinogen Ur Leukocyte Esterase Urine WBC (Auto) Urine RBC (Auto) Ur Epithelial Cells Urine Mucus Stool Occult Blood Blood Type Antibody Screen 07/09/17 15:20 RBC 4.06 MCV 85.0 MCHC 32.9 RDW 21.7 H MPV 8.9 Neutrophils % 48.5 Lymphocytes % 37.1 D Monocytes % 11.1 H Eosinophils % 3.0 Basophils % 0.3 - Medications Given in the ED: ED Medications Discontinued Medications Generic Name Dose Route Start Last Admin Trade Name [place] PRN Reason Stop Dose Admin Acetaminophen 1,000 mg 07/09/17 18:47 07/09/17 18:58 Ofirmev Injection - IVPB 07/09/17 18:48 1,000 mg ONCE ONE Administration Sodium Chloride 1,000 ml 07/09/17 18:46 07/09/17 18:58 Normal Saline - IV 07/09/17 18:47 1,000 ml ONCE ONE Administration Medical Decision Making - Medical Decision Making 07/09/17 20:44 Patient is Tylenol-allergic. Opting not to give Toradol or other NSAIDS d/t possibility for surgical management. She states her pain is not bad enough for morphine or another stronger medication. She will let me know if her pain worsens. On CT there are pulmonary nodules enlarged from prior study, right adrenal mass , concerning for mets. Also right adrenal mass, right hydronephrosis, two large bowel-containing ventral hernias. Patient admitted to Dr. Cardona. Decision to admit placed, consult placed to Dr. Kaiser. *DC/Admit/Observation/Transfer Diagnosis at time of Disposition: Rectal bleed Abdominal pain Qualifiers: Abdominal location: unspecified location Qualified Code(s): R10.9 - Unspecified abdominal pain UTI (urinary tract infection) Qualifiers: Urinary tract infection type: site unspecified Hematuria presence: with hematuria Qualified Code(s): N39.0 - Urinary tract infection, site not specified Colon cancer Qualifiers: Colon location: unspecified part of colon Qualified Code(s): C18.9 - Malignant neoplasm of colon, unspecified Ventral hernia Qualifiers: Obstruction and gangrene presence: without obstruction or gangrene Qualified Code(s): K43.9 - Ventral hernia without obstruction or gangrene - Discharge Dispostion Condition at time of disposition: Stable Admit: Yes - Referrals - Patient Instructions - Post Discharge Activity
[2017-07-09] MEDS ORDERED: ACETAMINOPHEN INJECTION 100 ML IVPB ONE (19:50)
[2017-07-09] MEDS ORDERED: SULFAMETHOXAZOLE/TRIMETHOPRIM 800MG/160MG D.S. TABLET ONE (19:51)
[2017-07-10] MEDS ORDERED: ONDANSETRON 4 MG/2 ML VIAL IVPUSH PRN (02:59)
--- NOTE | 2017-07-10 03:02 | HP ---
CHIEF COMPLAINT: abdominal pain, blood in stool PCP: Sim[facility] Oncology: [facility] HISTORY OF PRESENT ILLNESS: This is a 61 year old female with metastatic colon CA who presented to the ED with complaint of abdominal pain and blood in stool. As per son, pt reports that she has always had red stool since she started chemo in [place]. She also reports a small amount of blood in her urine. She states the pain has been since Friday. She last received chemo on 06/27/17 ER course was notable for: (1) Hgb 11.3 (2) WBC 3.6 (3) CT abd / pelvis with no new acute diverticulitis or colitis Recent Travel: pt denies PAST MEDICAL HISTORY: colon CA with mets to lung and pelvis, HTN, Hypothyroidism, right kidney obstruction PAST SURGICAL HISTORY: colon resection 2012 cholecystectomy total hysterectomy ventral hernia repair x 3 Social History: Smoking: pt denies Alcohol: pt denies Drugs: pt denies Family History: father age 78, h/o MS, leukemia, respiratory problems mother , h/o respiratory problems and HTN Allergies acetaminophen [From Tylenol] Allergy (Severe, Verified 07/09/17 14:55) THROAT PARALYZES ciprofloxacin [From Cipro] Allergy (Severe, Verified 07/09/17 14:55) SWELLING OF EYES AND MOUTH ciprofloxacin HCl [From Cipro] Allergy (Severe, Verified 07/09/17 14:55) SWELLING OF EYES AND MOUTH loratadine [From Claritin] Allergy (Severe, Verified 07/09/17 14:55) FACE GETS SWOLLEN Penicillins Allergy (Severe, Verified 07/09/17 14:55) SWELLING OF MY FACE AND HANDS HOME MEDICATIONS: 3 Medication Instructions Recorded Enalapril Maleate [Vasotec] 20 mg PO DAILY 12/24/16 Levothyroxine [Synthroid -] 150 mcg PO DAILY 12/24/16 REVIEW OF SYSTEMS CONSTITUTIONAL: Absent: fever, chills, diaphoresis, generalized weakness, malaise, loss of appetite, weight change HEENT: Absent: rhinorrhea, nasal congestion, throat pain, throat swelling, difficulty swallowing, mouth swelling, ear pain, eye pain, visual changes CARDIOVASCULAR: Absent: chest pain, syncope, palpitations, irregular heart rate, lightheadedness , peripheral edema RESPIRATORY: Absent: cough, shortness of breath, dyspnea with exertion, orthopnea, wheezing, stridor, hemoptysis GASTROINTESTINAL: Present: abdominal pain, hematochezia Absent: abdominal distension, nausea, vomiting, diarrhea, constipation, melena GENITOURINARY: Present: hematuria Absent: dysuria, frequency, urgency, hesitancy, flank pain, genital pain MUSCULOSKELETAL: Absent: myalgia, arthralgia, joint swelling, back pain, neck pain SKIN: Absent: rash, itching, pallor HEMATOLOGIC/IMMUNOLOGIC: Absent: easy bleeding, easy bruising, lymphadenopathy, frequent infections ENDOCRINE: Absent: unexplained weight gain, unexplained weight loss, heat intolerance, cold intolerance NEUROLOGIC: Absent: headache, focal weakness or paresthesias, dizziness, unsteady gait, seizure, mental status changes, bladder or bowel incontinence PSYCHIATRIC: Absent: anxiety, depression, suicidal or homicidal ideation, hallucinations. PHYSICAL EXAMINATION Vital Signs - 24 hr 3 07/09/17 07/10/17 14:50 01:21 Temperature 98.1 F 98.7 F Pulse Rate 90 Pulse Rate [ 72 Left Radial] Respiratory 20 18 Rate Blood Pressure 148/55 Blood Pressure 123/54 [Left Arm] O2 Sat by Pulse 100 98 Oximetry (%) GENERAL: Awake, alert, and fully oriented, in no acute distress. HEAD: Normal with no signs of trauma. EYES: Pupils equal, round and reactive to light, extraocular movements intact, sclera anicteric, conjunctiva clear. No lid lag. EARS, NOSE, THROAT: Ears normal, nares patent, oropharynx clear without exudates. Moist mucous membranes. NECK: Normal range of motion, supple without lymphadenopathy, JVD, or masses. LUNGS: Breath sounds equal, clear to auscultation bilaterally. No wheezes, and no crackles. No accessory muscle use. HEART: Regular rate and rhythm, normal S1 and S2 without murmur, rub or gallop. ABDOMEN: Soft, not distended, normoactive bowel sounds, no guarding, no rebound , no masses. No hepatomegaly or splenomegaly. tender to palpation, especially LLQ, midline vertical surgical scar MUSCULOSKELETAL: Normal range of motion at all joints. No bony deformities or tenderness. No CVA tenderness. UPPER EXTREMITIES: 2+ pulses, warm, well-perfused. No cyanosis. No clubbing. No peripheral edema. LOWER EXTREMITIES: 2+ pulses, warm, well-perfused. No calf tenderness. No peripheral edema. NEUROLOGICAL: Cranial nerves II-XII intact. Normal speech. Normal gait. PSYCHIATRIC: Cooperative. Good eye contact. Appropriate mood and affect. SKIN: Warm, dry, normal turgor, no rashes or lesions noted, normal capillary refill. Laboratory Results - last 24 hr 3 07/09/17 07/09/17 07/09/17 15:20 15:20 15:20 WBC 3.6 L RBC 4.06 Hgb 11.3 Hct 34.5 MCV 85.0 MCH 28.0 MCHC 32.9 RDW 21.7 H Plt Count 249 MPV 8.9 Neutrophils % 48.5 Lymphocytes % 37.1 D Monocytes % 11.1 H Eosinophils % 3.0 Basophils % 0.3 PT with INR 12.30 H INR 1.09 Sodium 140 Potassium 4.0 Chloride 106 Carbon Dioxide 23 Anion Gap 11 BUN 20 H Creatinine 1.0 Creat Clearance w eGFR 56.75 Random Glucose 103 Calcium 8.6 Total Bilirubin 0.8 D AST 19 ALT 23 Alkaline Phosphatase 183 H Total Protein 7.3 Albumin 3.4 Urine Color Urine Appearance Urine pH Ur Specific [place] Urine Protein Urine Glucose (UA) Urine Ketones Urine Blood Urine Nitrite Urine Bilirubin Urine Urobilinogen Ur Leukocyte Esterase Urine WBC (Auto) Urine RBC (Auto) Ur Epithelial Cells Urine Mucus Stool Occult Blood Blood Type Antibody Screen 3 07/09/17 07/09/17 07/09/17 15:20 15:20 18:00 WBC RBC Hgb Hct MCV MCH MCHC RDW Plt Count MPV Neutrophils % Lymphocytes % Monocytes % Eosinophils % Basophils % PT with INR INR Sodium Potassium Chloride Carbon Dioxide Anion Gap BUN Creatinine Creat Clearance w eGFR Random Glucose Calcium Total Bilirubin AST ALT Alkaline Phosphatase Total Protein Albumin Urine Color Yellow Urine Appearance Slcloudy Urine pH 5.0 Ur Specific [place] 1.024 Urine Protein 1+ H Urine Glucose (UA) Negative Urine Ketones Negative Urine Blood 2+ H Urine Nitrite Negative Urine Bilirubin Negative Urine Urobilinogen 2.0 H Ur Leukocyte Esterase 2+ H Urine WBC (Auto) 105 Urine RBC (Auto) 90 Ur Epithelial Cells Rare Urine Mucus Rare Stool Occult Blood Trace Blood Type A POSITIVE Antibody Screen Negative ECG Normal sinus rhythm vent rate 73, QTC [address]/T changes Radiology Reports Abd/pel CT with IV contrast THIS IS A PRELIMINARY REPORT FROM [facility] IMPRESSION: 1. Stable moderate to large sized ventral abdominal hernia containing small and large bowel without CT findings to suggest strangulation or proximal bowel obstruction. Prominent rectosigmoid colon, which may related to under distention. However, the possibility of inflammatory/infectious proctitis versus underlying neoplastic process cannot be excluded. 2. Mild to moderate right-sided hydroureteronephrosis likely secondary to distal ureter stricture adjacent to dystrophic coarse calcification in the right pelvic floor. No obvious obstruction ureterolithiasis. 3. Interval increase in size of pulmonary nodules in the left lower lobe with the largest one measuring approximately 1.5 cm, previously measured approximately 9 mm. 4. Diffuse enlargement of the right adrenal gland abutting the right posterior hepatic lobe. Signed by Fabio Paige MD 07/10/2017 00:25 EST ASSESSMENT/PLAN: 61yF with PMH colon CA with mets to lung and pelvis, HTN, Hypothyroidism, right kidney obstruction presented to the ED with abdominal pain and rectal bleeding. Abdominal pain with rectal bleeding - no obvious acute findings on CT - NPO except meds with a sip of water for now - GI consult - trend Hgb UTI - given po bactrim in ED - pt has allergy to penicillin but has tolerated ceftriaxone in past. will start ceftriaxone 1g daily. right sided hydronephrosis - pt describes obstruction to right kidney in past, likely not a new finding , Cr stable, no further intervention at this time. Colon CA with mets - oncology consult HTN - cont home enalapril hypothyroidism - cont home synthroid DVT PPX - defer heparin for now given c/o rectal bleeding FEN - NS @ 83cc/hr - BMP in am - NPO for now Dispo: Pt currently requires inpatient management of her emergent condition. Visit type - Emergency Visit Emergency Visit: Yes ED Registration Date: 07/09/17 Care time: The patient presented to the Emergency Department on the above date and was hospitalized for further evaluation of their emergent condition. - New Patient This patient is new to me today: Yes Date on this admission: 07/10/17 - Critical Care Critical Care patient: No
[2017-07-10] MEDS ORDERED: CEFTRIAXONE 1 GM/50 ML BAG IVPB ONE (03:25)
[2017-07-10] MEDS: SODIUM CHLORIDE 1,000 ML IV SCH ×2 (03:40→21:33)
[2017-07-10] MEDS ORDERED: CEFTRIAXONE 1 GM/50 ML BAG ONE (04:15)
[2017-07-10] MEDS: LEVOTHYROXINE NA 150 MCG TABLET PO SCH (06:43)
[2017-07-10 06:54] LABS: BASO % 0.3 % (0-2.0); EOS % 4.1 % (0-4.5); HEMATOCRIT 29.1 % (32.4-45.2); HEMOGLOBIN 9.6 GM/dL (10.7-15.3); LYMPH % 27.6 % (8-40); MCH 28.1 pg (25.7-33.7); MCHC 33.2 g/dl (32.0-36.0); MEAN CELL VOLUME 84.8 fl (80-96); MEAN PLT VOLUME 8.2 fl (7.5-11.1); MONO % 17.6 % (3.8-10.2); NEUT % 50.4 % (42.8-82.8); PLATELET COUNT 225 K/MM3 (134-434); RBC 3.43 M/mm3 (3.60-5.2); RDW 21.8 % (11.6-15.6); WHITE BLOOD COUNT 2.9 K/mm3 (4.0-10.0)
[2017-07-10 07:23] LABS: ANION GAP 8 (8-16); BLOOD UREA NITROGEN 15 mg/dL (7-18); CALCIUM 8.4 mg/dL (8.5-10.1); CHLORIDE 105 mmol/L (98-107); CO2 26 mmol/L (21-32); GLUCOSE,RANDOM 108 mg/dL (74-106); MAGNESIUM 1.9 mg/dL (1.8-2.4); PHOSPHOROUS 2.9 mg/dL (2.5-4.9); POTASSIUM 3.7 mmol/L (3.5-5.1); SODIUM 139 mmol/L (136-145)
--- NOTE | 2017-07-10 08:55 | PN ---
Teaching Attending Note Name of Resident: Jesus Renee ATTENDING PHYSICIAN STATEMENT I saw and evaluated the patient. I reviewed the resident's note and discussed the case with the resident. I agree with the resident's findings and plan as documented. SUBJECTIVE: Patient is lying in bed c/o having abdominal pain specially on palpation where her hernias are bl. OBJECTIVE: Vital Signs Temperature 98.1 F 07/10/17 07:12 Pulse Rate 75 07/10/17 07:12 Respiratory Rate 16 07/10/17 07:12 Blood Pressure 113/62 07/10/17 07:12 O2 Sat by Pulse Oximetry (%) 100 07/10/17 07:12 CBCD WBC 2.9 K/mm3 (4.0-10.0) L 07/10/17 06:05 RBC 3.43 M/mm3 (3.60-5.2) L 07/10/17 06:05 Hgb 9.6 GM/dL (10.7-15.3) L D 07/10/17 06:05 Hct 29.1 % (32.4-45.2) L D 07/10/17 06:05 MCV 84.8 fl (80-96) 07/10/17 06:05 MCHC 33.2 g/dl (32.0-36.0) 07/10/17 06:05 RDW 21.8 % (11.6-15.6) H 07/10/17 06:05 Plt Count 225 K/MM3 (134-434) 07/10/17 06:05 MPV 8.2 fl (7.5-11.1) 07/10/17 06:05 CMP Sodium 139 mmol/L (136-145) 07/10/17 06:05 Potassium 3.7 mmol/L (3.5-5.1) 07/10/17 06:05 Chloride 105 mmol/L (98-107) 07/10/17 06:05 Carbon Dioxide 26 mmol/L (21-32) 07/10/17 06:05 Anion Gap 8 (8-16) 07/10/17 06:05 BUN 15 mg/dL (7-18) 07/10/17 06:05 Creatinine 1.0 mg/dL (0.55-1.02) 07/10/17 06:05 Creat Clearance w eGFR 56.75 (>60) 07/09/17 15:20 Random Glucose 108 mg/dL (74-106) H 07/10/17 06:05 Calcium 8.4 mg/dL (8.5-10.1) L 07/10/17 06:05 Total Bilirubin 0.8 mg/dL (0.2-1.0) D 07/09/17 15:20 AST 19 U/L (15-37) 07/09/17 15:20 ALT 23 U/L (12-78) 07/09/17 15:20 Alkaline Phosphatase 183 U/L (45-117) H 07/09/17 15:20 Total Protein 7.3 g/dl (6.4-8.2) 07/09/17 15:20 Albumin 3.4 g/dl (3.4-5.0) 07/09/17 15:20 Current Medications Generic Name Dose Route Start Last Admin Trade Name Freq PRN Reason Stop Dose Admin Enalapril Maleate 20 mg 07/10/17 10:00 Vasotec - PO DAILY DIAN Sodium Chloride 1,000 mls @ 83 mls/hr 07/10/17 03:00 07/10/17 03:40 Normal Saline - IV 83 mls/hr ASDIR DIAN Administration CEFTRIAXONE 1 G/50 ML PREMIX 50 mls @ 100 mls/hr 07/10/17 22:00 Ceftriaxone 1 Gm-D5w Bag IVPB HS DIAN Levothyroxine Sodium 150 mcg 07/10/17 07:00 07/10/17 06:43 Synthroid - PO 150 mcg DAILY@0700 DIAN Administration Ondansetron HCl 4 mg 07/10/17 02:59 Zofran Injection IVPUSH Q6H PRN NAUSEA Home Medications Medication Instructions Recorded Enalapril Maleate [Vasotec] 20 mg PO DAILY 12/24/16 Levothyroxine [Synthroid -] 150 mcg PO DAILY 12/24/16 PE: nice female , lying in bed in mild distress Abdomen: BL lower tenderness on palpation scale of 6/10 pain ECG: Normal sinus rhythm, rate of 73, QTC 442, NO ST/T changes Radiology Reports: Abd/pel CT with IV contrast: Stable moderate to large sized ventral abdominal hernia containing small and large bowel without CT findings to suggest strangulation or proximal bowel obstruction. Prominent rectosigmoid colon, which may related to under distention. However, the possibility of inflammatory/ infectious proctitis versus underlying neoplastic process cannot be excluded. Mild to moderate right-sided hydroureteronephrosis likely secondary to distal ureter stricture adjacent to dystrophic coarse calcification in the right pelvic floor. No obvious obstruction , ureterolithiasis. Interval increase in size of pulmonary nodules in the left lower lobe with the largest one measuring approximately 1.5 cm, previously measured approximately 9 mm. Diffuse enlargement of the right adrenal gland abutting the right posterior hepatic lobe. Signed by Fabio Paige MD, 07/10/2017 00:25 EST ASSESSMENT/PLAN: Patient is a 61yo female with PMHx of colon CA with mets to lung and pelvis, HTN, Hypothyroidism, right kidney obstruction presented to the ED with abdominal pain and rectal bleeding. # Abdominal pain left >right with rectal bleeding ( as per GI; patient has internal hemorroids) no obvious acute findings on CT, GI consult appreciated. 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 # Acute UTI on Rocephin IV day #2 continue #Right sided hydronephrosis pt describes obstruction to right kidney in past, likely not a new finding, Cr stable, no further intervention at this time. #Colon CA with mets oncology consult on the case, patient is on chemo regimen as per patient #HTN cont home enalapril # hypothyroidism cont home synthroid DVT PPX : SCDs, heparin sq
[2017-07-10] MEDS: ENALAPRIL MALEATE 10 MG TABLET (FP) PO SCH (10:11)
--- NOTE | 2017-07-10 15:50 | PN ---
Physical Exam: SUBJECTIVE: Patient seen and examined at bedside. She states that she has had non-radiating , mid abdominal pain for several days. She states that she has had 2 ventral hernias at the areas of pain since 2014 and was previously evaluated but was told she was not going to have surgical management. Patient has a history of metastatic colorectal cancer to the lungs and pelvis and sees Dr. Kaiser for management. She states that her last chemotherapy appointment was earlier this June. She states that she has a history of hemorrhoids and has had rectal bleeding for years. She also states that she has had hematuria for many years. Patient denies diarrhea, nausea, vomiting, chest pain, shortness of breath, denies burning on urination. OBJECTIVE: Vital Signs Period Temp Pulse Resp BP Sys/[place] Pulse Ox Last 24 Hr 98.1 F-98.7 F 72-78 16-18 102-123/50-62 98-100 GENERAL: The patient is awake, alert, and fully oriented, in no acute distress. HEAD: Normal with no signs of trauma. LUNGS: Breath sounds equal, clear to auscultation bilaterally, no wheezes, no crackles, no accessory muscle use. HEART: Regular rate and rhythm, S1, S2 without murmur, rub or gallop. ABDOMEN: Obese,Soft, nondistended, normoactive bowel sounds, 2 distinct ventral hernias were palpated that were tender to palpation. Several external hemorrhoids present on exam. EXTREMITIES: 2+ pulses, warm, well-perfused, no edema. NEUROLOGICAL: Cranial nerves II through XII grossly intact. Normal speech, gait not observed. PSYCH: Normal mood, normal affect. SKIN: Warm, dry, normal turgor, no rashes or lesions noted Laboratory Results - last 24 hr 07/09/17 07/09/17 07/09/17 15:20 15:20 15:20 WBC RBC Hgb Hct MCV MCH MCHC RDW Plt Count MPV Neutrophils % Lymphocytes % Monocytes % Eosinophils % Basophils % PT with INR 12.30 H INR 1.09 Sodium 140 Potassium 4.0 Chloride 106 Carbon Dioxide 23 Anion Gap 11 BUN 20 H Creatinine 1.0 Creat Clearance w eGFR 56.75 Random Glucose 103 Calcium 8.6 Phosphorus Magnesium Total Bilirubin 0.8 D AST 19 ALT 23 Alkaline Phosphatase 183 H Total Protein 7.3 Albumin 3.4 Urine Color Urine Appearance Urine pH Ur Specific [place] Urine Protein Urine Glucose (UA) Urine Ketones Urine Blood Urine Nitrite Urine Bilirubin Urine Urobilinogen Ur Leukocyte Esterase Urine WBC (Auto) Urine RBC (Auto) Ur Epithelial Cells Urine Mucus Stool Occult Blood Blood Type A POSITIVE Antibody Screen Negative 07/09/17 07/09/17 07/10/17 15:20 18:00 06:05 WBC 2.9 L RBC 3.43 L Hgb 9.6 L D Hct 29.1 L D MCV 84.8 MCH 28.1 MCHC 33.2 RDW 21.8 H Plt Count 225 MPV 8.2 Neutrophils % 50.4 Lymphocytes % 27.6 D Monocytes % 17.6 H Eosinophils % 4.1 Basophils % 0.3 PT with INR INR Sodium Potassium Chloride Carbon Dioxide Anion Gap BUN Creatinine Creat Clearance w eGFR Random Glucose Calcium Phosphorus Magnesium Total Bilirubin AST ALT Alkaline Phosphatase Total Protein Albumin Urine Color Yellow Urine Appearance Slcloudy Urine pH 5.0 Ur Specific [place] 1.024 Urine Protein 1+ H Urine Glucose (UA) Negative Urine Ketones Negative Urine Blood 2+ H Urine Nitrite Negative Urine Bilirubin Negative Urine Urobilinogen 2.0 H Ur Leukocyte Esterase 2+ H Urine WBC (Auto) 105 Urine RBC (Auto) 90 Ur Epithelial Cells Rare Urine Mucus Rare Stool Occult Blood Trace Blood Type Antibody Screen 07/10/17 06:05 WBC RBC Hgb Hct MCV MCH MCHC RDW Plt Count MPV Neutrophils % Lymphocytes % Monocytes % Eosinophils % Basophils % PT with INR INR Sodium 139 Potassium 3.7 Chloride 105 Carbon Dioxide 26 Anion Gap 8 BUN 15 Creatinine 1.0 Creat Clearance w eGFR Random Glucose 108 H Calcium 8.4 L Phosphorus 2.9 Magnesium 1.9 Total Bilirubin AST ALT Alkaline Phosphatase Total Protein Albumin Urine Color Urine Appearance Urine pH Ur Specific [place] Urine Protein Urine Glucose (UA) Urine Ketones Urine Blood Urine Nitrite Urine Bilirubin Urine Urobilinogen Ur Leukocyte Esterase Urine WBC (Auto) Urine RBC (Auto) Ur Epithelial Cells Urine Mucus Stool Occult Blood Blood Type Antibody Screen Active Medications Generic Name Dose Route Start Last Admin Trade Name Freq PRN Reason Stop Dose Admin Enalapril Maleate 20 mg 07/10/17 10:00 07/10/17 10:11 Vasotec - PO 20 mg DAILY DIAN Administration Sodium Chloride 1,000 mls @ 83 mls/hr 07/10/17 03:00 07/10/17 03:40 Normal Saline - IV 83 mls/hr ASDIR DIAN Administration CEFTRIAXONE 1 G/50 ML PREMIX 50 mls @ 100 mls/hr 07/10/17 22:00 Ceftriaxone 1 Gm-D5w Bag IVPB HS DIAN Levothyroxine Sodium 150 mcg 07/10/17 07:00 07/10/17 06:43 Synthroid - PO 150 mcg DAILY@0700 DIAN Administration Ondansetron HCl 4 mg 07/10/17 02:59 Zofran Injection IVPUSH Q6H PRN NAUSEA ASSESSMENT/PLAN: 61 year old female with a hx of metastatic colon cancer to lungs and pelvis, hemorrhoids, ventral hernias, hypertension, hypothyroidism is admitted to the hospital for the treatment of abdominal pain likely 2/2 UTI vs ventral hernia and rectal bleeding #UTI: improving -continue ceftriaxone 1gm IV -IVF hydration @ 83 cc/hr #Abdominal pain 2/2 ventral hernia: -CT negative for any acute abdominal process; did find significant mass on right adrenal gland -Consult Dr. Esparza - surgery to evaluate pain/hernia -zofran for nausea -GI consult appreciated #Hypertension: controlled -continue enalapril 20mg QD #Metastatic Colorectal Cancer: not an acute issue -last chemo Jun 27? -consult Dr. Kaiser #Hemorrhoids: stable -not currently bleeding #Hypothyroidism: -Synthoid 150 PO QD #FEN -NS @ 83cc/hr -replete electrolytes as necessary -clear liquid diet for now #Prophylaxis -SCDs #Disposition -Monitor on med-surg Visit type - Emergency Visit Emergency Visit: No - New Patient This patient is new to me today: Yes Date on this admission: 07/10/17 - Critical Care Critical Care patient: No
--- NOTE | 2017-07-10 17:46 | CON.GI ---
Consult Consult Specialty:: GI - History of Present Illness History of Present Illness: A 61 yof with painless brbpr with stools x 3 months. Had Colonoscopy by Dr. Anthony Schaefer at [facility] 2-3 months ago and was found to have nothing but internal hemorrhoids, per patient. The patient is undergoing chemotherapy for metastatic to the lungs colon cancer. S/p resection in 2012. She reports lower abdominal pain and tenderness to a slight touch. There is no nausea, vomiting, diarrhea, fever, jaundice. There is no dyspepsia, dysphasia, odynophagaia, hematemesis, or hemoptysis. No history of PUD, or upper GI bleeding. No chronic NSAIDs - History Source History Provided By: Patient, Family Member (niece ), Medical Record - Alcohol/Substance Use Hx Alcohol Use: No - Smoking History Smoking history: Never smoked Home Medications - Allergies Allergies/Adverse Reactions: Allergies Allergy/AdvReac Type Severity Reaction Status Date / Time acetaminophen [From Tylenol] Allergy Severe Verified 07/09/17 14:55 ciprofloxacin [From Cipro] Allergy Severe Verified 07/09/17 14:55 ciprofloxacin HCl Allergy Severe Verified 07/09/17 14:55 [From Cipro] loratadine [From Claritin] Allergy Severe Verified 07/09/17 14:55 Penicillins Allergy Severe Verified 07/09/17 14:55 - Home Medications Home Medications: Ambulatory Orders Enalapril Maleate [Vasotec] 20 mg PO DAILY 12/24/16 Levothyroxine [Synthroid -] 150 mcg PO DAILY 12/24/16 Family Disease History - Family Disease History Family History: Unremarkable (non-contributory) Review of Systems Findings/Remarks: please refer to HPI, H&P Physical Exam-GI Vital Signs: Vital Signs Temperature 98.1 F 07/10/17 07:12 Pulse Rate 78 07/10/17 14:29 Respiratory Rate 16 07/10/17 14:29 Blood Pressure 102/50 07/10/17 14:29 O2 Sat by Pulse Oximetry (%) 99 07/10/17 14:29 Constitutional: Yes: Well Nourished, No Distress, Calm Eyes: Yes: Conjunctiva Clear HENT: Yes: Atraumatic Neck: Yes: Supple Cardiovascular: Yes: Regular Rate and Rhythm Respiratory: Yes: Regular Gastrointestinal Inspection: Yes: Hernia, Scars. No: Distention ...Auscultate: Yes: Normoactive Bowel Sounds ...Palpate: Yes: Soft, Tenderness (lower abdomen, superficial). No: Firm/Rigid , Guarding, Mass, Tenderness, Rebound ...Rectal Exam: Yes: Guaiac Positive, Sphincter Tone Poor Neurological: Yes: Alert, Oriented Labs: CBC, BMP 07/10/17 06:05 07/10/17 06:05 INR, PTT INR 1.09 (0.82-1.09) 07/09/17 15:20 Laboratory Tests 07/09/17 07/09/17 07/09/17 15:20 15:20 15:20 WBC 3.6 L RBC 4.06 Hgb 11.3 Hct 34.5 MCV 85.0 MCH 28.0 MCHC 32.9 RDW 21.7 H Plt Count 249 MPV 8.9 Neutrophils % 48.5 Lymphocytes % 37.1 D Monocytes % 11.1 H Eosinophils % 3.0 Basophils % 0.3 PT with INR 12.30 H INR 1.09 Sodium 140 Potassium 4.0 Chloride 106 Carbon Dioxide 23 Anion Gap 11 BUN 20 H Creatinine 1.0 Creat Clearance w eGFR 56.75 Random Glucose 103 Calcium 8.6 Phosphorus Magnesium Total Bilirubin 0.8 D AST 19 ALT 23 Alkaline Phosphatase 183 H Total Protein 7.3 Albumin 3.4 Urine Color Urine Appearance Urine pH Ur Specific [place] Urine Protein Urine Glucose (UA) Urine Ketones Urine Blood Urine Nitrite Urine Bilirubin Urine Urobilinogen Ur Leukocyte Esterase Urine WBC (Auto) Urine RBC (Auto) Ur Epithelial Cells Urine Mucus Stool Occult Blood Blood Type Antibody Screen 07/09/17 07/09/17 07/09/17 15:20 15:20 18:00 WBC RBC Hgb Hct MCV MCH MCHC RDW Plt Count MPV Neutrophils % Lymphocytes % Monocytes % Eosinophils % Basophils % PT with INR INR Sodium Potassium Chloride Carbon Dioxide Anion Gap BUN Creatinine Creat Clearance w eGFR Random Glucose Calcium Phosphorus Magnesium Total Bilirubin AST ALT Alkaline Phosphatase Total Protein Albumin Urine Color Yellow Urine Appearance Slcloudy Urine pH 5.0 Ur Specific [place] 1.024 Urine Protein 1+ H Urine Glucose (UA) Negative Urine Ketones Negative Urine Blood 2+ H Urine Nitrite Negative Urine Bilirubin Negative Urine Urobilinogen 2.0 H Ur Leukocyte Esterase 2+ H Urine WBC (Auto) 105 Urine RBC (Auto) 90 Ur Epithelial Cells Rare Urine Mucus Rare Stool Occult Blood Trace Blood Type A POSITIVE Antibody Screen Negative 07/10/17 07/10/17 06:05 06:05 WBC 2.9 L RBC 3.43 L Hgb 9.6 L D Hct 29.1 L D MCV 84.8 MCH 28.1 MCHC 33.2 RDW 21.8 H Plt Count 225 MPV 8.2 Neutrophils % 50.4 Lymphocytes % 27.6 D Monocytes % 17.6 H Eosinophils % 4.1 Basophils % 0.3 PT with INR INR Sodium 139 Potassium 3.7 Chloride 105 Carbon Dioxide 26 Anion Gap 8 BUN 15 Creatinine 1.0 Creat Clearance w eGFR Random Glucose 108 H Calcium 8.4 L Phosphorus 2.9 Magnesium 1.9 Total Bilirubin AST ALT Alkaline Phosphatase Total Protein Albumin Urine Color Urine Appearance Urine pH Ur Specific [place] Urine Protein Urine Glucose (UA) Urine Ketones Urine Blood Urine Nitrite Urine Bilirubin Urine Urobilinogen Ur Leukocyte Esterase Urine WBC (Auto) Urine RBC (Auto) Ur Epithelial Cells Urine Mucus Stool Occult Blood Blood Type Antibody Screen Imaging - Results Cat Scan: Report Reviewed Problem List - Problems (1) Internal hemorrhoid, bleeding Code(s): K64.8 - OTHER HEMORRHOIDS (2) Rectal bleed Code(s): K62.5 - HEMORRHAGE OF ANUS AND RECTUM (3) Colon cancer Code(s): C18.9 - MALIGNANT NEOPLASM OF COLON, UNSPECIFIED Qualifiers: Colon location: unspecified part of colon Qualified Code(s): C18.9 - Malignant neoplasm of colon, unspecified Assessment/Plan A 61 yof with history of colon cancermetastatic to lungs undergoing treatment. Presents with painless, brb, hematochezia on/off 3 for 3 months. The patient had colonoscpy by Dr. Anthony Schaefer 2-3 months ago which showed internal hemorrhoids and no other lesions, per patient. Obtain colonoscopy report from [facility] The bleeding is not consistend with upper GI bleed No need for endoscopic intervention at this time Sx eval re tenderness in the area of multiple abdominal hernia repairs, ? insisional hernia Monitor hemoglobin Anusol HD, and observe
[2017-07-10] MEDS: CEFTRIAXONE 1 G/50 ML PREMIX 50 ML IVPB SCH (21:31)
[2017-07-10] MEDS: HEPARIN NA (PORCINE) 5,000 UNITS/ML 1ML VIAL SQ SCH (21:31)
[2017-07-11] MEDS: SODIUM CHLORIDE 1,000 ML IV SCH ×3 (06:07→21:18)
[2017-07-11] MEDS: HEPARIN NA (PORCINE) 5,000 UNITS/ML 1ML VIAL SQ SCH ×3 (06:08→21:18)
[2017-07-11] MEDS: LEVOTHYROXINE NA 150 MCG TABLET PO SCH (06:08)
[2017-07-11 07:41] LABS: HEMOGLOBIN 9.1 GM/dL (10.7-15.3); MCH 28.2 pg (25.7-33.7); MCHC 32.7 g/dl (32.0-36.0); MEAN CELL VOLUME 86.2 fl (80-96); MEAN PLT VOLUME 7.9 fl (7.5-11.1); PLATELET COUNT 225 K/MM3 (134-434); RBC 3.24 M/mm3 (3.60-5.2); RDW 22.2 % (11.6-15.6); WHITE BLOOD COUNT 2.4 K/mm3 (4.0-10.0)
[2017-07-11 08:14] LABS: ALBUMIN 2.7 g/dl (3.4-5.0); ALK PHOS 158 U/L (45-117); ANION GAP 7 (8-16); BILIRUBIN,TOTAL 0.6 mg/dL (0.2-1.0); BLOOD UREA NITROGEN 10 mg/dL (7-18); CALCIUM 8.2 mg/dL (8.5-10.1); CHLORIDE 108 mmol/L (98-107); CO2 27 mmol/L (21-32); CREATININE 0.9 mg/dL (0.55-1.02); GLUCOSE,RANDOM 86 mg/dL (74-106); MAGNESIUM 2.1 mg/dL (1.8-2.4); POTASSIUM 3.9 mmol/L (3.5-5.1); SGOT/AST 23 U/L (15-37); SGPT/ALT 20 U/L (12-78); SODIUM 142 mmol/L (136-145); TOT PROT 5.8 g/dl (6.4-8.2)
[2017-07-11] MEDS: ENALAPRIL MALEATE 10 MG TABLET (FP) PO SCH (10:11)
--- NOTE | 2017-07-11 13:31 | EKG ---
Test Reason : Blood Pressure : / mmHG Vent. Rate : 073 BPM Atrial Rate : 073 BPM P-R Int : 116 ms QRS Dur : 090 ms QT Int : 402 ms P-R-T Axes : 014 007 029 degrees QTc Int : 442 ms NORMAL SINUS RHYTHM NORMAL ECG WHEN COMPARED WITH ECG OF 24-JUN-2017 13:49, NO SIGNIFICANT CHANGE WAS FOUND Confirmed by MD TRENT, PEBBLES ([id number]) on 07/11/2017 1:31:17 PM Referred By: Confirmed By:PEBBLES NEWMAN MD
--- NOTE | 2017-07-11 15:02 | PN ---
Physical Exam: SUBJECTIVE: Patient seen and examined at bedside. She states she feels the same as yesterday. States that her abdominal pain is 0/10 when at rest, but 5-6/10 when pressing on the areas near her ventral hernias on the abdomen. Denies further melena or hematuria. Denies CP, SOB, N/V/D. OBJECTIVE: Vital Signs Period Temp Pulse Resp BP Sys/[place] Pulse Ox Last 24 Hr 98.3 F-98.9 F 66-79 17-20 127-140/65-75 99-100 GENERAL: The patient is awake, alert, and fully oriented, in no acute distress. NECK: Trachea midline, full range of motion, supple. LUNGS: Breath sounds equal, clear to auscultation bilaterally, no wheezes, no crackles, no accessory muscle use. HEART: Regular rate and rhythm, S1, S2 without murmur, rub or gallop. ABDOMEN: Obese, Soft, 2 tender, ventral hernias palpated in the periumbilical region, nondistended, normoactive bowel sounds, no guarding, no rebound, no hepatosplenomegaly. EXTREMITIES: 2+ pulses, warm, well-perfused, no edema. NEUROLOGICAL: Cranial nerves II through XII grossly intact. Normal speech, gait not observed. PSYCH: Normal mood, normal affect. SKIN: Warm, dry, normal turgor, no rashes or lesions noted Laboratory Results - last 24 hr 07/11/17 07/11/17 07:15 07:15 WBC 2.4 L RBC 3.24 L Hgb 9.1 L Hct 28.0 L MCV 86.2 MCH 28.2 MCHC 32.7 RDW 22.2 H Plt Count 225 MPV 7.9 Sodium 142 Potassium 3.9 Chloride 108 H Carbon Dioxide 27 Anion Gap 7 L BUN 10 Creatinine 0.9 Creat Clearance w eGFR > 60 Random Glucose 86 Calcium 8.2 L Magnesium 2.1 Total Bilirubin 0.6 D AST 23 ALT 20 Alkaline Phosphatase 158 H Total Protein 5.8 L Albumin 2.7 L Active Medications Generic Name Dose Route Start Last Admin Trade Name Freq PRN Reason Stop Dose Admin Enalapril Maleate 20 mg 07/10/17 10:00 07/11/17 10:11 Vasotec - PO 20 mg DAILY DIAN Administration Heparin Sodium (Porcine) 5,000 unit 07/10/17 22:00 07/11/17 06:08 Heparin - SQ 5,000 unit TID DIAN Administration Sodium Chloride 1,000 mls @ 83 mls/hr 07/10/17 03:00 07/11/17 10:14 Normal Saline - IV 83 mls/hr ASDIR DIAN Administration CEFTRIAXONE 1 G/50 ML PREMIX 50 mls @ 100 mls/hr 07/10/17 22:00 07/10/17 21: 31 Ceftriaxone 1 Gm-D5w Bag IVPB 100 mls/hr HS DIAN Administration Levothyroxine Sodium 150 mcg 07/10/17 07:00 07/11/17 06:08 Synthroid - PO 150 mcg DAILY@0700 DIAN Administration Ondansetron HCl 4 mg 07/10/17 02:59 Zofran Injection IVPUSH Q6H PRN NAUSEA ASSESSMENT/PLAN: 61 year old female with a hx of metastatic colon cancer to lungs and pelvis, hemorrhoids, ventral hernias, hypertension, hypothyroidism is admitted to the hospital for the treatment of abdominal pain likely 2/2 UTI vs ventral hernia and rectal bleeding #UTI: improving -continue ceftriaxone 1gm IV day 2 -IVF hydration @ 83 cc/hr #Abdominal pain 2/2 ventral hernia: stable -CT negative for any acute abdominal process; did find significant mass on right adrenal gland -Consult Dr. Esparza - surgery to evaluate pain/hernia -zofran for nausea -GI consult appreciated, no emergent endoscopy indicated #Hypertension: controlled -continue enalapril 20mg QD #Metastatic Colorectal Cancer: not an acute issue -last chemo Jun 27? -consult Dr. Kaiser #Hemorrhoids: stable -not currently bleeding #Hypothyroidism: -Synthoid 150 PO QD #FEN -NS @ 83cc/hr -replete electrolytes as necessary -clear liquid diet for now #Prophylaxis -SCDs #Disposition -Monitor on med-surg Visit type - Emergency Visit Emergency Visit: No - New Patient This patient is new to me today: No - Critical Care Critical Care patient: No
--- NOTE | 2017-07-11 15:08 | PN ---
Teaching Attending Note Name of Resident: Jesus Renee ATTENDING PHYSICIAN STATEMENT I saw and evaluated the patient. I reviewed the resident's note and discussed the case with the resident. I agree with the resident's findings and plan as documented. SUBJECTIVE: OBJECTIVE: Vital Signs Temperature 98.3 F 07/11/17 10:00 Pulse Rate 66 07/11/17 10:00 Respiratory Rate 17 07/11/17 10:00 Blood Pressure 127/65 07/11/17 10:00 O2 Sat by Pulse Oximetry (%) 100 07/11/17 09:00 CBCD WBC 2.4 K/mm3 (4.0-10.0) L 07/11/17 07:15 RBC 3.24 M/mm3 (3.60-5.2) L 07/11/17 07:15 Hgb 9.1 GM/dL (10.7-15.3) L 07/11/17 07:15 Hct 28.0 % (32.4-45.2) L 07/11/17 07:15 MCV 86.2 fl (80-96) 07/11/17 07:15 MCHC 32.7 g/dl (32.0-36.0) 07/11/17 07:15 RDW 22.2 % (11.6-15.6) H 07/11/17 07:15 Plt Count 225 K/MM3 (134-434) 07/11/17 07:15 MPV 7.9 fl (7.5-11.1) 07/11/17 07:15 CMP Sodium 142 mmol/L (136-145) 07/11/17 07:15 Potassium 3.9 mmol/L (3.5-5.1) 07/11/17 07:15 Chloride 108 mmol/L (98-107) H 07/11/17 07:15 Carbon Dioxide 27 mmol/L (21-32) 07/11/17 07:15 Anion Gap 7 (8-16) L 07/11/17 07:15 BUN 10 mg/dL (7-18) 07/11/17 07:15 Creatinine 0.9 mg/dL (0.55-1.02) 07/11/17 07:15 Creat Clearance w eGFR > 60 (>60) 07/11/17 07:15 Random Glucose 86 mg/dL (74-106) 07/11/17 07:15 Calcium 8.2 mg/dL (8.5-10.1) L 07/11/17 07:15 Total Bilirubin 0.6 mg/dL (0.2-1.0) D 07/11/17 07:15 AST 23 U/L (15-37) 07/11/17 07:15 ALT 20 U/L (12-78) 07/11/17 07:15 Alkaline Phosphatase 158 U/L (45-117) H 07/11/17 07:15 Total Protein 5.8 g/dl (6.4-8.2) L 07/11/17 07:15 Albumin 2.7 g/dl (3.4-5.0) L 07/11/17 07:15 Current Medications Generic Name Dose Route Start Last Admin Trade Name Freq PRN Reason Stop Dose Admin Enalapril Maleate 20 mg 07/10/17 10:00 07/11/17 10:11 Vasotec - PO 20 mg DAILY DIAN Administration Heparin Sodium (Porcine) 5,000 unit 07/10/17 22:00 07/11/17 06:08 Heparin - SQ 5,000 unit TID DIAN Administration Sodium Chloride 1,000 mls @ 83 mls/hr 07/10/17 03:00 07/11/17 10:14 Normal Saline - IV 83 mls/hr ASDIR DIAN Administration CEFTRIAXONE 1 G/50 ML PREMIX 50 mls @ 100 mls/hr 07/10/17 22:00 07/10/17 21: 31 Ceftriaxone 1 Gm-D5w Bag IVPB 100 mls/hr HS DIAN Administration Levothyroxine Sodium 150 mcg 07/10/17 07:00 07/11/17 06:08 Synthroid - PO 150 mcg DAILY@0700 DIAN Administration Ondansetron HCl 4 mg 07/10/17 02:59 Zofran Injection IVPUSH Q6H PRN NAUSEA Home Medications Medication Instructions Recorded Enalapril Maleate [Vasotec] 20 mg PO DAILY 12/24/16 Levothyroxine [Synthroid -] 150 mcg PO DAILY 12/24/16 PE: nice female , lying in bed in mild distress Abdomen: BL lower tenderness on palpation scale of 4/10 pain today ECG: Normal sinus rhythm, rate of 73, QTC 442, NO ST/T changes Radiology Reports: Abd/pel CT with IV contrast: Stable moderate to large sized ventral abdominal hernia containing small and large bowel without CT findings to suggest strangulation or proximal bowel obstruction. Prominent rectosigmoid colon, which may related to under distention. However, the possibility of inflammatory/ infectious proctitis versus underlying neoplastic process cannot be excluded. Mild to moderate right-sided hydroureteronephrosis likely secondary to distal ureter stricture adjacent to dystrophic coarse calcification in the right pelvic floor. No obvious obstruction , ureterolithiasis. Interval increase in size of pulmonary nodules in the left lower lobe with the largest one measuring approximately 1.5 cm, previously measured approximately 9 mm. Diffuse enlargement of the right adrenal gland abutting the right posterior hepatic lobe. Signed by Fabio Paige MD, 07/10/2017 00:25 EST ASSESSMENT/PLAN: Patient is a 61yo female with PMHx of colon CA with mets to lung and pelvis, HTN, Hypothyroidism, right kidney obstruction presented to the ED with abdominal pain and rectal bleeding. # Abdominal pain left >right with rectal bleeding ( as per GI; patient has internal hemorroids) due to having 2 large hernias , there is no pain if patient is not palpated otherwise no pain. Ct of abdomen no strangulation or obstruction as per report , tolerating diet well. Discussed with will see the patient today. GI consult appreciated. # Anemia is stable due to internal hemorroids and chemo and colon ca , will check with oncologist whether the patient is on any growth factor. # Acute UTI on Rocephin IV this is the 3rd dose today will continue #Right sided hydronephrosis pt describes obstruction to right kidney in the past , likely not a new finding, Cr stable, no further intervention at this time. #Colon CA with mets oncology consult on the case, patient is on chemo regimen as per patient #HTN cont home enalapril # hypothyroidism cont home synthroid DVT PPX : SCDs, heparin sq
[2017-07-11] MEDS: CEFTRIAXONE 1 G/50 ML PREMIX 50 ML IVPB SCH (21:19)
--- NOTE | 2017-07-11 21:37 | CONSULT ---
Consult Consult Specialty:: Surgery Reason for Consultation:: incisional hernia - History of Present Illness Chief Complaint: abdominal pain History of Present Illness: This is a 61 year old female with metastatic colon CA who presented to the ED with complaint of abdominal pain and blood in stool. As per son, pt reports that she has always had red stool since she started chemo in [place]. She also reports a small amount of blood in her urine. She states the pain has been since Friday. She last received chemo on 06/27/17. Patient is referred for evaluation of incisional hernia. Patient stated she had multiple incisional hernia repairs X 3 in [place] after resection for colon cancer but the hernia recurred. - Past Medical History Gastrointestinal: Yes: Cancer (colon) - Past Surgical History Past Surgical History: Yes: Colectomy, Hernia Repair (incisional hernia x 3) - Alcohol/Substance Use Hx Alcohol Use: No - Smoking History Smoking history: Never smoked Home Medications - Allergies Allergies/Adverse Reactions: Allergies Allergy/AdvReac Type Severity Reaction Status Date / Time acetaminophen [From Tylenol] Allergy Severe Verified 07/09/17 14:55 ciprofloxacin [From Cipro] Allergy Severe Verified 07/09/17 14:55 ciprofloxacin HCl Allergy Severe Verified 07/09/17 14:55 [From Cipro] loratadine [From Claritin] Allergy Severe Verified 07/09/17 14:55 Penicillins Allergy Severe Verified 07/09/17 14:55 - Home Medications Home Medications: Ambulatory Orders Enalapril Maleate [Vasotec] 20 mg PO DAILY 12/24/16 Levothyroxine [Synthroid -] 150 mcg PO DAILY 12/24/16 Review of Systems - Review of Systems Gastrointestinal: reports: Abdominal Pain Physical Exam Vital Signs: Vital Signs Temperature 97.8 F 07/11/17 15:59 Pulse Rate 79 07/11/17 15:59 Respiratory Rate 20 07/11/17 15:59 Blood Pressure 149/71 07/11/17 15:59 O2 Sat by Pulse Oximetry (%) 100 07/11/17 09:00 Constitutional: Yes: No Distress, Obese Eyes: Yes: Conjunctiva Clear HENT: Yes: Normocephalic Neck: Yes: Supple Cardiovascular: Yes: Regular Rate and Rhythm Respiratory: Yes: CTA Bilaterally Gastrointestinal: Yes: Abdomen, Obese, Hernia (non-reducible bulge about 10 x 8 cm in size), Tenderness (at lower midline abdomen where hernia is located) Neurological: Yes: Alert, Oriented Labs: CBC, BMP 07/11/17 07:15 07/11/17 07:15 Imaging - Results Cat Scan: Report Reviewed, Image Reviewed Problem List - Problems (1) Recurrent incisional hernia with incarceration Code(s): K43.0 - INCISIONAL HERNIA WITH OBSTRUCTION, WITHOUT GANGRENE (2) Ventral hernia Assessment/Plan: chronically incarcerated incisional hernia with multiple (3) failed repairs Currently symptomatic but no sign of obstruction or strangulation On continuous chemotherapy for stage 4 colon cancer Will weigh the risks and benefits of palliative hernia repair and discuss with the patient and family. Will discuss further with Oncology about patient's status and shelter prognosis. Code(s): K43.9 - VENTRAL HERNIA WITHOUT OBSTRUCTION OR GANGRENE Qualifiers: Obstruction and gangrene presence: without obstruction or gangrene Qualified Code(s): K43.9 - Ventral hernia without obstruction or gangrene
--- NOTE | 2017-07-11 21:42 | CONSULT ---
Consult - text type - Consultation Consultation Note: Patient seen and examined 07/10/17 and 07/11/17 61 yof with painless brbpr . Had Colonoscopy by Dr. Anthony Schaefer at [facility] 2-3 months ago and was found to have nothing but internal hemorrhoids , per patient. The patient is undergoing chemotherapy for colon cancer with lung mets . S/p resection in 2012. She reports lower abdominal pain and tenderness to a slight touch. There is no nausea, vomiting, diarrhea, fever, jaundice. There is no dyspepsia, dysphagia, odynophagaia, hematemesis, or hemoptysis. No history of PUD, or upper GI bleeding. No chronic NSAIDs - History Source History Provided By: Patient, Family Member (niece ), Medical Record - Alcohol/Substance Use Hx Alcohol Use: No - Smoking History Smoking history: Never smoked Home Medications - Allergies Allergies/Adverse Reactions: Allergies Allergy/AdvReac Type Severity Reaction Status Date / Time acetaminophen [From Tylenol] Allergy Severe Verified 07/09/17 14:55 ciprofloxacin [From Cipro] Allergy Severe Verified 07/09/17 14:55 ciprofloxacin HCl Allergy Severe Verified 07/09/17 14:55 [From Cipro] loratadine [From Claritin] Allergy Severe Verified 07/09/17 14:55 Penicillins Allergy Severe Verified 07/09/17 14:55 - Home Medications Home Medications: Ambulatory Orders Enalapril Maleate [Vasotec] 20 mg PO DAILY 12/24/16 Levothyroxine [Synthroid -] 150 mcg PO DAILY 12/24/16 Current Medications Generic Name Dose Route Start Last Admin Trade Name Freq PRN Reason Stop Dose Admin Enalapril Maleate 20 mg 07/10/17 10:00 07/11/17 10:11 Vasotec - PO 20 mg DAILY DIAN Administration Heparin Sodium (Porcine) 5,000 unit 07/10/17 22:00 07/11/17 21:18 Heparin - SQ 5,000 unit TID DIAN Administration Sodium Chloride 1,000 mls @ 83 mls/hr 07/10/17 03:00 07/11/17 21:18 Normal Saline - IV 83 mls/hr ASDIR DIAN Administration CEFTRIAXONE 1 G/50 ML PREMIX 50 mls @ 100 mls/hr 07/10/17 22:00 07/11/17 21: 19 Ceftriaxone 1 Gm-D5w Bag IVPB 100 mls/hr HS DIAN Administration Levothyroxine Sodium 150 mcg 07/10/17 07:00 07/11/17 06:08 Synthroid - PO 150 mcg DAILY@0700 DIAN Administration Ondansetron HCl 4 mg 07/10/17 02:59 Zofran Injection IVPUSH Q6H PRN NAUSEA Family Disease History - Family Disease History Family History: Unremarkable (non-contributory) Physical Exam-GI Vital Signs: Last Vital Signs Temp Pulse Resp BP Pulse Ox 97.8 F 79 20 149/71 100 07/11/17 15:59 07/11/17 15:59 07/11/17 15:59 07/11/17 15:59 07/11/17 09:00 Constitutional: Yes: Well Nourished, No Distress, Calm Eyes: Yes: Conjunctiva Clear HENT: Yes: Atraumatic Neck: Yes: Supple Cardiovascular: Yes: Regular Rate and Rhythm Respiratory: Yes: Regular Gastrointestinal Inspection: Yes: Hernia, Scars. No: Distention ...Auscultate: Yes: Normoactive Bowel Sounds ...Palpate: Yes: Soft, Tenderness (lower abdomen, superficial). No: Firm/Rigid , Guarding, Mass, Tenderness, Rebound Neurological: Yes: Alert, Oriented Labs: Abnormal Lab Results 07/11/17 07/11/17 07:15 07:15 WBC 2.4 L RBC 3.24 L Hgb 9.1 L Hct 28.0 L RDW 22.2 H Chloride 108 H Anion Gap 7 L Calcium 8.2 L Alkaline Phosphatase 158 H Total Protein 5.8 L Albumin 2.7 L Active Medications Generic Name Dose Route Start Last Admin Trade Name Freq PRN Reason Stop Dose Admin Enalapril Maleate 20 mg 07/10/17 10:00 07/11/17 10:11 Vasotec - PO 20 mg DAILY DIAN Administration Heparin Sodium (Porcine) 5,000 unit 07/10/17 22:00 07/11/17 21:18 Heparin - SQ 5,000 unit TID DIAN Administration Sodium Chloride 1,000 mls @ 83 mls/hr 07/10/17 03:00 07/11/17 21:18 Normal Saline - IV 83 mls/hr ASDIR DIAN Administration CEFTRIAXONE 1 G/50 ML PREMIX 50 mls @ 100 mls/hr 07/10/17 22:00 07/11/17 21: 19 Ceftriaxone 1 Gm-D5w Bag IVPB 100 mls/hr HS DIAN Administration Levothyroxine Sodium 150 mcg 07/10/17 07:00 07/11/17 06:08 Synthroid - PO 150 mcg DAILY@0700 DIAN Administration Ondansetron HCl 4 mg 07/10/17 02:59 Zofran Injection IVPUSH Q6H PRN NAUSEA Imaging - Results Cat Scan: Report Reviewed Problem List - Problems (1) Internal hemorrhoid, bleeding Code(s): K64.8 - OTHER HEMORRHOIDS (2) Rectal bleed Code(s): K62.5 - HEMORRHAGE OF ANUS AND RECTUM (3) Colon cancer Code(s): C18.9 - MALIGNANT NEOPLASM OF COLON, UNSPECIFIED Qualifiers: Colon location: unspecified part of colon Qualified Code(s): C18.9 - Malignant neoplasm of colon, unspecified Assessment/Plan A 61 yof with history of colon cancer metastatic to lungs on FOLFIRI. Was allergic to Xeloda/OXaliplatin.Presents with painless, brb, hematochezia on/off 3 for 3 months. The patient had colonoscpy by Dr. Anthony Schaefer 2-3 months ago which showed internal hemorrhoids and no other lesions, per patient. CT scan shows increased lung mets since 01/06, stable left pelvic adenopathy, adrenal metastases, mild right hydronephrosis abdominal pain --related to hernias? no bowel obstruction. monitor
[2017-07-12] MEDS: SODIUM CHLORIDE 1,000 ML IV SCH ×3 (06:18→22:30)
[2017-07-12] MEDS: LEVOTHYROXINE NA 150 MCG TABLET PO SCH (06:19)
[2017-07-12] MEDS: HEPARIN NA (PORCINE) 5,000 UNITS/ML 1ML VIAL SQ SCH ×3 (06:19→22:31)
[2017-07-12 08:31] LABS: HEMATOCRIT 28.4 % (32.4-45.2); HEMOGLOBIN 9.1 GM/dL (10.7-15.3); MCH 27.7 pg (25.7-33.7); MCHC 31.9 g/dl (32.0-36.0); MEAN CELL VOLUME 86.8 fl (80-96); MEAN PLT VOLUME 8.3 fl (7.5-11.1); PLATELET COUNT 229 K/MM3 (134-434); RBC 3.27 M/mm3 (3.60-5.2); RDW 22.2 % (11.6-15.6)
[2017-07-12 08:32] LABS: ADD RBC MORPHOLOGY YES
[2017-07-12 09:11] LABS: CHLORIDE 108 mmol/L (98-107); POTASSIUM 3.9 mmol/L (3.5-5.1); SODIUM 141 mmol/L (136-145)
[2017-07-12 09:16] LABS: ANION GAP 7 (8-16); BLOOD UREA NITROGEN 11 mg/dL (7-18); CO2 26 mmol/L (21-32); CREATININE 0.9 mg/dL (0.55-1.02); GLUCOSE,RANDOM 95 mg/dL (74-106); MAGNESIUM 2.1 mg/dL (1.8-2.4); PHOSPHOROUS 3.4 mg/dL (2.5-4.9)
[2017-07-12] MEDS: ENALAPRIL MALEATE 10 MG TABLET (FP) PO SCH (09:49)
[2017-07-12 10:05] LABS: ANISOCYTOSIS 2+; MACROCYTOSIS 0
--- NOTE | 2017-07-12 16:37 | PN ---
Physical Exam: SUBJECTIVE: Patient seen and examined Patient is feeling better. No pain unless you palpate her abdomen OBJECTIVE: Vital Signs Temperature 98.3 F 07/12/17 14:46 Pulse Rate 71 07/12/17 14:46 Respiratory Rate 18 07/12/17 14:46 Blood Pressure 129/68 07/12/17 14:46 O2 Sat by Pulse Oximetry (%) 99 07/12/17 09:00 GENERAL: The patient is awake, alert, and fully oriented, in no acute distress. HEAD: Normal with no signs of trauma. EYES: PERRL, extraocular movements intact, sclera anicteric, conjunctiva clear. ENT: Ears normal, oropharynx clear without exudates, moist mucous membranes. NECK: Trachea midline, full range of motion, supple. LUNGS: Breath sounds equal, clear to auscultation bilaterally, no wheezes, no crackles, no accessory muscle use. HEART: Regular rate and rhythm, S1, S2 without murmur, rub or gallop. ABDOMEN: Soft, tender upon palpation due to her hernias . EXTREMITIES: 2+ pulses, warm, well-perfused, no edema. NEUROLOGICAL: Cranial nerves II through XII grossly intact. Normal speech, gait not observed. PSYCH: Normal mood, normal affect. SKIN: Warm, dry, normal turgor, no rashes or lesions noted CBCD WBC 3.0 K/mm3 (4.0-10.0) L 07/12/17 07:30 RBC 3.27 M/mm3 (3.60-5.2) L 07/12/17 07:30 Hgb 9.1 GM/dL (10.7-15.3) L 07/12/17 07:30 Hct 28.4 % (32.4-45.2) L 07/12/17 07:30 MCV 86.8 fl (80-96) 07/12/17 07:30 MCHC 31.9 g/dl (32.0-36.0) L 07/12/17 07:30 RDW 22.2 % (11.6-15.6) H 07/12/17 07:30 Plt Count 229 K/MM3 (134-434) 07/12/17 07:30 MPV 8.3 fl (7.5-11.1) 07/12/17 07:30 CMP Sodium 141 mmol/L (136-145) 07/12/17 07:30 Potassium 3.9 mmol/L (3.5-5.1) 07/12/17 07:30 Chloride 108 mmol/L (98-107) H 07/12/17 07:30 Carbon Dioxide 26 mmol/L (21-32) 07/12/17 07:30 Anion Gap 7 (8-16) L 07/12/17 07:30 BUN 11 mg/dL (7-18) 07/12/17 07:30 Creatinine 0.9 mg/dL (0.55-1.02) 07/12/17 07:30 Creat Clearance w eGFR > 60 (>60) 07/11/17 07:15 Random Glucose 95 mg/dL (74-106) 07/12/17 07:30 Calcium 8.0 mg/dL (8.5-10.1) L 07/12/17 07:30 Total Bilirubin 0.6 mg/dL (0.2-1.0) D 07/11/17 07:15 AST 23 U/L (15-37) 07/11/17 07:15 ALT 20 U/L (12-78) 07/11/17 07:15 Alkaline Phosphatase 158 U/L (45-117) H 07/11/17 07:15 Total Protein 5.8 g/dl (6.4-8.2) L 07/11/17 07:15 Albumin 2.7 g/dl (3.4-5.0) L 07/11/17 07:15 Active Medications Generic Name Dose Route Start Last Admin Trade Name Freq PRN Reason Stop Dose Admin Enalapril Maleate 20 mg 07/10/17 10:00 07/12/17 09:49 Vasotec - PO 20 mg DAILY DIAN Administration Heparin Sodium (Porcine) 5,000 unit 07/10/17 22:00 07/12/17 14:27 Heparin - SQ 5,000 unit TID DIAN Administration Sodium Chloride 1,000 mls @ 83 mls/hr 07/10/17 03:00 07/12/17 09:49 Normal Saline - IV 83 mls/hr ASDIR DIAN Administration CEFTRIAXONE 1 G/50 ML PREMIX 50 mls @ 100 mls/hr 07/10/17 22:00 07/11/17 21: 19 Ceftriaxone 1 Gm-D5w Bag IVPB 100 mls/hr HS DIAN Administration Levothyroxine Sodium 150 mcg 07/10/17 07:00 07/12/17 06:19 Synthroid - PO 150 mcg DAILY@0700 DIAN Administration Ondansetron HCl 4 mg 07/10/17 02:59 Zofran Injection IVPUSH Q6H PRN NAUSEA Home Medications Medication Instructions Recorded Enalapril Maleate [Vasotec] 20 mg PO DAILY 12/24/16 Levothyroxine [Synthroid -] 150 mcg PO DAILY 12/24/16 ECG: Normal sinus rhythm, rate of 73, QTC 442, NO ST/T changes Radiology Reports: Abd/pel CT with IV contrast: Stable moderate to large sized ventral abdominal hernia containing small and large bowel without CT findings to suggest strangulation or proximal bowel obstruction. Prominent rectosigmoid colon, which may related to under distention. However, the possibility of inflammatory/ infectious proctitis versus underlying neoplastic process cannot be excluded. Mild to moderate right-sided hydroureteronephrosis likely secondary to distal ureter stricture adjacent to dystrophic coarse calcification in the right pelvic floor. No obvious obstruction , ureterolithiasis. Interval increase in size of pulmonary nodules in the left lower lobe with the largest one measuring approximately 1.5 cm, previously measured approximately 9 mm. Diffuse enlargement of the right adrenal gland abutting the right posterior hepatic lobe. Signed by Fabio Paige MD, 07/10/2017 00:25 EST ASSESSMENT/PLAN: Patient is a 61yo female with PMHx of colon CA with mets to lung and pelvis, HTN, Hypothyroidism, right kidney obstruction presented to the ED with abdominal pain and rectal bleeding. # Abdominal pain due to her large ventral abdominal hernia only on palpation, started to tolerate her diet as well.No further rectal bleeding ( as per GI; patient has internal hemorroids). Ct of abdomen no strangulation or obstruction as per report , tolerating diet well. Discussed with will see the patient today. GI consult appreciated. # Anemia is stable due to internal hemorroids and chemo and colon ca , will check with oncologist whether the patient is on any growth factor. # Acute UTI on Rocephin IV this is the 3rd dose today will continue #Right sided hydronephrosis pt describes obstruction to right kidney in the past , likely not a new finding, Cr stable, no further intervention at this time. #Colon CA with mets oncology consult on the case, patient is on chemo regimen as per patient #HTN cont home enalapril # hypothyroidism cont home synthroid DVT PPX : SCDs, heparin sq Visit type - Emergency Visit Emergency Visit: Yes ED Registration Date: 07/10/17 Care time: The patient presented to the Emergency Department on the above date and was hospitalized for further evaluation of their emergent condition. - New Patient This patient is new to me today: No - Critical Care Critical Care patient: No - Discharge Referral Referred to [facility] No
--- NOTE | 2017-07-12 17:40 | PN ---
Progress Note (short form) - Note Progress Note: Patient is tolerating diet and c/o pain when coughing Abd: soft, + tenderness over lower midline abdomen at area of non-reducible hernia Recurrent incisional hernia with chronic incarceration but without obstruction or strangulation Rec: abdominal binder for comfort Attempted to call patient's son today but unsuccessful. Will follow. Problem List - Problems (1) Recurrent incisional hernia with incarceration Code(s): K43.0 - INCISIONAL HERNIA WITH OBSTRUCTION, WITHOUT GANGRENE (2) Ventral hernia Code(s): K43.9 - VENTRAL HERNIA WITHOUT OBSTRUCTION OR GANGRENE Qualifiers: Obstruction and gangrene presence: without obstruction or gangrene Qualified Code(s): K43.9 - Ventral hernia without obstruction or gangrene
[2017-07-12] MEDS: CEFTRIAXONE 1 G/50 ML PREMIX 50 ML IVPB SCH (22:31)
[2017-07-12] MEDS ORDERED: IBUPROFEN 400 MG TABLET (FP) PO ONE (23:00)
[2017-07-12] MEDS ORDERED: morphine CARPU-JECT 10 MG/1 ML DISP.SYRIN IVPUSH ONE (23:30)
[2017-07-13] MEDS: HEPARIN NA (PORCINE) 5,000 UNITS/ML 1ML VIAL SQ SCH ×3 (02:20→21:17)
[2017-07-13] MEDS: LEVOTHYROXINE NA 150 MCG TABLET PO SCH (06:15)
[2017-07-13] MEDS: SODIUM CHLORIDE 1,000 ML IV SCH (07:32)
[2017-07-13] MEDS: ENALAPRIL MALEATE 10 MG TABLET (FP) PO SCH (09:53)
--- NOTE | 2017-07-13 14:20 | PN ---
Progress Note (short form) - Note Progress Note: Spoke at length with patient and patient's son about patient's condition. Informed that she has a symptomatic incisional hernia that is chronically incarcerated but not strangulated or with SBO. Patient states that this is the second episode of severe pain but that she has low grade pain on a daily basis. She was told that chemotherapy will have to be held if surgery is performed and that it may affect her survival if complications occur owing to the complexity of the problem. Here son states that her previous surgeries in [place] were complicated by post-op infections and prolonged hospital stays. When asked if she is amenable to Surgery at this time pending Dr. Kaiser's opinion, she does not want any intervention during this hospital stay. She was then advised that the only absolute indication for surgery is if she develops strangulation or small bowel obstruction in an emergency situation. She understands fully well what has been discussed. Problem List - Problems (1) Recurrent incisional hernia with incarceration Code(s): K43.0 - INCISIONAL HERNIA WITH OBSTRUCTION, WITHOUT GANGRENE (2) Ventral hernia Code(s): K43.9 - VENTRAL HERNIA WITHOUT OBSTRUCTION OR GANGRENE Qualifiers: Obstruction and gangrene presence: without obstruction or gangrene Qualified Code(s): K43.9 - Ventral hernia without obstruction or gangrene
--- NOTE | 2017-07-13 19:11 | PN ---
Progress Note (short form) - Note Progress Note: Patient seen and examiend c/o diarrhea Last Vital Signs Temp Pulse Resp BP Pulse Ox 97.8 F 72 18 166/74 98 07/13/17 13:53 07/13/17 13:53 07/13/17 13:53 07/13/17 13:53 07/13/17 09:00 Cor: RSR, No murmurs, No gallops Lungs: Clear to P&A Abd: Soft, Normal bowel sounds, No organomegaly Ext:No significant edema LAbs/MEds reviewed A/P A 61 yof with history of colon cancer metastatic to lungs on FOLFIRI. Was allergic to Xeloda/OXaliplatin.Presents with painless, brb, hematochezia on/off 3 for 3 months. The patient had colonoscpy by Dr. Anthony Schaefer 2-3 months ago which showed internal hemorrhoids and no other lesions, per patient. CT scan shows increased lung mets since 01/06, stable left pelvic adenopathy, adrenal metastases, mild right hydronephrosis abdominal pain --related to hernias? no bowel obstruction. surgical f/u noted check stool for c.diff
--- NOTE | 2017-07-13 20:10 | PN ---
Progress Note (short form) - Note Progress Note: Patient is feeling better less pain and she feels that she improved. Vital Signs Temperature 97.8 F 07/13/17 13:53 Pulse Rate 72 07/13/17 13:53 Respiratory Rate 18 07/13/17 13:53 Blood Pressure 166/74 07/13/17 13:53 O2 Sat by Pulse Oximetry (%) 98 07/13/17 09:00 CBCD WBC 3.0 K/mm3 (4.0-10.0) L 07/12/17 07:30 RBC 3.27 M/mm3 (3.60-5.2) L 07/12/17 07:30 Hgb 9.1 GM/dL (10.7-15.3) L 07/12/17 07:30 Hct 28.4 % (32.4-45.2) L 07/12/17 07:30 MCV 86.8 fl (80-96) 07/12/17 07:30 MCHC 31.9 g/dl (32.0-36.0) L 07/12/17 07:30 RDW 22.2 % (11.6-15.6) H 07/12/17 07:30 Plt Count 229 K/MM3 (134-434) 07/12/17 07:30 MPV 8.3 fl (7.5-11.1) 07/12/17 07:30 CMP Sodium 141 mmol/L (136-145) 07/12/17 07:30 Potassium 3.9 mmol/L (3.5-5.1) 07/12/17 07:30 Chloride 108 mmol/L (98-107) H 07/12/17 07:30 Carbon Dioxide 26 mmol/L (21-32) 07/12/17 07:30 Anion Gap 7 (8-16) L 07/12/17 07:30 BUN 11 mg/dL (7-18) 07/12/17 07:30 Creatinine 0.9 mg/dL (0.55-1.02) 07/12/17 07:30 Creat Clearance w eGFR > 60 (>60) 07/11/17 07:15 Random Glucose 95 mg/dL (74-106) 07/12/17 07:30 Calcium 8.0 mg/dL (8.5-10.1) L 07/12/17 07:30 Total Bilirubin 0.6 mg/dL (0.2-1.0) D 07/11/17 07:15 AST 23 U/L (15-37) 07/11/17 07:15 ALT 20 U/L (12-78) 07/11/17 07:15 Alkaline Phosphatase 158 U/L (45-117) H 07/11/17 07:15 Total Protein 5.8 g/dl (6.4-8.2) L 07/11/17 07:15 Albumin 2.7 g/dl (3.4-5.0) L 07/11/17 07:15 Current Medications Generic Name Dose Route Start Last Admin Trade Name Freq PRN Reason Stop Dose Admin Enalapril Maleate 20 mg 07/10/17 10:00 07/13/17 09:53 Vasotec - PO 20 mg DAILY DIAN Administration Heparin Sodium (Porcine) 5,000 unit 07/10/17 22:00 07/13/17 06:16 Heparin - SQ 5,000 unit TID DIAN Administration Sodium Chloride 1,000 mls @ 83 mls/hr 07/10/17 03:00 07/13/17 07:32 Normal Saline - IV Not Given ASDIR DIAN CEFTRIAXONE 1 G/50 ML PREMIX 50 mls @ 100 mls/hr 07/10/17 22:00 07/12/17 22: 31 Ceftriaxone 1 Gm-D5w Bag IVPB 100 mls/hr HS DIAN Administration Levothyroxine Sodium 150 mcg 07/10/17 07:00 07/13/17 06:15 Synthroid - PO 150 mcg DAILY@0700 DIAN Administration Ondansetron HCl 4 mg 07/10/17 02:59 Zofran Injection IVPUSH Q6H PRN NAUSEA Home Medications Medication Instructions Recorded Enalapril Maleate [Vasotec] 20 mg PO DAILY 12/24/16 Levothyroxine [Synthroid -] 150 mcg PO DAILY 12/24/16 ECG: Normal sinus rhythm, rate of 73, QTC 442, NO ST/T changes Radiology Reports: Abd/pel CT with IV contrast: Stable moderate to large sized ventral abdominal hernia containing small and large bowel without CT findings to suggest strangulation or proximal bowel obstruction. Prominent rectosigmoid colon, which may related to under distention. However, the possibility of inflammatory/ infectious proctitis versus underlying neoplastic process cannot be excluded. Mild to moderate right-sided hydroureteronephrosis likely secondary to distal ureter stricture adjacent to dystrophic coarse calcification in the right pelvic floor. No obvious obstruction , ureterolithiasis. Interval increase in size of pulmonary nodules in the left lower lobe with the largest one measuring approximately 1.5 cm, previously measured approximately 9 mm. Diffuse enlargement of the right adrenal gland abutting the right posterior hepatic lobe. Signed by Fabio Paige MD, 07/10/2017 00:25 EST ASSESSMENT/PLAN: Patient is a 61yo female with PMHx of colon CA with mets to lung and pelvis, HTN, Hypothyroidism, right kidney obstruction presented to the ED with abdominal pain and rectal bleeding. # Abdominal pain improving due to ventral abdominal hernia , discussed with suggesting that she should have surgery but due to surgical complications , is going to discuss with her and her son. As of today, patient is refusing surgery and wanting to talk to . No further rectal bleeding ( as per GI ; patient has internal hemorroids). Ct of abdomen no strangulation or obstruction as per report , tolerating diet well. Discussed with will see the patient today. GI consult appreciated. # Anemia is stable due to internal hemorroids and chemo and colon ca , will check with oncologist whether the patient is on any growth factor. # Acute UTI on Rocephin IV continue #Right sided hydronephrosis , as per patient has an obstruction to right kidney in the past, likely not a new finding, Cr stable, no further intervention at this time. #Colon CA with mets oncology consult on the case, patient is on chemo regimen as per patient #HTN cont home enalapril # hypothyroidism cont home synthroid DVT PPX : SCDs, heparin sq Visit type - Emergency Visit Emergency Visit: Yes ED Registration Date: 07/10/17 Care time: The patient presented to the Emergency Department on the above date and was hospitalized for further evaluation of their emergent condition. - New Patient This patient is new to me today: No - Critical Care Critical Care patient: No - Discharge Referral Referred to [facility] Med [facility].C[facility] No
[2017-07-13] MEDS: CEFTRIAXONE 1 G/50 ML PREMIX 50 ML IVPB SCH (21:17)
[2017-07-14] MEDS: LEVOTHYROXINE NA 150 MCG TABLET PO SCH (06:27)
[2017-07-14] MEDS: HEPARIN NA (PORCINE) 5,000 UNITS/ML 1ML VIAL SQ SCH ×3 (06:27→21:34)
[2017-07-14 08:13] LABS: HEMATOCRIT 30.7 % (32.4-45.2); HEMOGLOBIN 9.8 GM/dL (10.7-15.3); MCH 27.8 pg (25.7-33.7); MCHC 32.1 g/dl (32.0-36.0); MEAN CELL VOLUME 86.6 fl (80-96); MEAN PLT VOLUME 8.2 fl (7.5-11.1); PLATELET COUNT 248 K/MM3 (134-434); RBC 3.54 M/mm3 (3.60-5.2); RDW 22.2 % (11.6-15.6); WHITE BLOOD COUNT 4.9 K/mm3 (4.0-10.0)
[2017-07-14 08:33] LABS: CHLORIDE 105 mmol/L (98-107); POTASSIUM 3.9 mmol/L (3.5-5.1); SODIUM 141 mmol/L (136-145)
[2017-07-14 08:37] LABS: ALBUMIN 2.8 g/dl (3.4-5.0); ALK PHOS 158 U/L (45-117); ANION GAP 6 (8-16); BILIRUBIN,TOTAL 0.5 mg/dL (0.2-1.0); BLOOD UREA NITROGEN 10 mg/dL (7-18); CALCIUM 8.5 mg/dL (8.5-10.1); CO2 30 mmol/L (21-32); CREATININE 0.8 mg/dL (0.55-1.02); GLUCOSE,RANDOM 87 mg/dL (74-106); MAGNESIUM 1.9 mg/dL (1.8-2.4); SGOT/AST 25 U/L (15-37); SGPT/ALT 21 U/L (12-78); TOT PROT 6.2 g/dl (6.4-8.2)
[2017-07-14] MEDS ORDERED: PT OWN MED DRAWER 7, Y5N ONE (10:22)
[2017-07-14] MEDS: ENALAPRIL MALEATE 10 MG TABLET (FP) PO SCH (10:41)
[2017-07-14] MEDS: SODIUM CHLORIDE 1,000 ML IV SCH ×2 (12:40)
[2017-07-14 13:06] LABS: ANISOCYTOSIS 1+; PLATELET ESTIMATE NORMAL
--- NOTE | 2017-07-14 17:01 | PN ---
<Jesus Renee - Last Filed: 07/14/17 17:18> Physical Exam: SUBJECTIVE: Patient seen and examined at bedside. Patient is clinically unchanged from yesterday. Patient is amenable to surgery but would like to discuss the option with Dr. Kaiser prior to making any decisions. Dr. Esparza is on the case from surgical perspective. Denies further abdominal pain (only tender to palpation at the hernia regions). Denies chest pain, SOB, nausea, vomiting. States she is still having baseline diarrhea that she has had for many months. OBJECTIVE: Vital Signs Period Temp Pulse Resp BP Sys/[place] Pulse Ox Last 24 Hr 97.9 F-98.4 F 68-77 18-18 124-143/62-76 100 GENERAL: The patient is awake, alert, and fully oriented, in no acute distress. NECK: Trachea midline, full range of motion, supple. LUNGS: Breath sounds equal, clear to auscultation bilaterally, no wheezes, no crackles, no accessory muscle use. HEART: Regular rate and rhythm, S1, S2 without murmur, rub or gallop. ABDOMEN: Obese, Soft, 2 tender, ventral hernias palpated in the periumbilical region, nondistended, normoactive bowel sounds, no guarding, no rebound, no hepatosplenomegaly. EXTREMITIES: 2+ pulses, warm, well-perfused, no edema. NEUROLOGICAL: Cranial nerves II through XII grossly intact. Normal speech, gait not observed. PSYCH: Normal mood, normal affect. SKIN: Warm, dry, normal turgor, no rashes or lesions noted Laboratory Results - last 24 hr 07/14/17 07/14/17 07:30 07:30 WBC 4.9 D RBC 3.54 L Hgb 9.8 L Hct 30.7 L MCV 86.6 MCH 27.8 MCHC 32.1 RDW 22.2 H Plt Count 248 MPV 8.2 Neutrophils % No Result Required. Neutrophils % (Manual) 50.5 Band Neutrophils % 2.0 Lymphocytes % No Result Required. Lymphocytes % (Manual) 31.3 Monocytes % (Manual) 10 Eosinophils % (Manual) 6.1 H Basophils % (Manual) 0.0 Myelocytes % (Man) 0 Metamyelocytes 0 Platelet Estimate Normal Polychromasia 1+ Anisocytosis 1+ Microcytosis 1+ Sodium 141 Potassium 3.9 Chloride 105 Carbon Dioxide 30 Anion Gap 6 L BUN 10 Creatinine 0.8 Creat Clearance w eGFR > 60 Random Glucose 87 Calcium 8.5 Phosphorus 4.0 Magnesium 1.9 Total Bilirubin 0.5 AST 25 ALT 21 Alkaline Phosphatase 158 H Total Protein 6.2 L Albumin 2.8 L Active Medications Generic Name Dose Route Start Last Admin Trade Name Freq PRN Reason Stop Dose Admin Enalapril Maleate 20 mg 07/10/17 10:00 07/14/17 10:41 Vasotec - PO 20 mg DAILY DIAN Administration Heparin Sodium (Porcine) 5,000 unit 07/10/17 22:00 07/14/17 15:51 Heparin - SQ 5,000 unit TID DIAN Administration Sodium Chloride 1,000 mls @ 83 mls/hr 07/10/17 03:00 07/14/17 12:40 Normal Saline - IV 83 mls/hr ASDIR DIAN Administration CEFTRIAXONE 1 G/50 ML PREMIX 50 mls @ 100 mls/hr 07/10/17 22:00 07/13/17 21: 17 Ceftriaxone 1 Gm-D5w Bag IVPB 100 mls/hr HS DIAN Administration Levothyroxine Sodium 150 mcg 07/10/17 07:00 07/14/17 06:27 Synthroid - PO 150 mcg DAILY@0700 DIAN Administration Ondansetron HCl 4 mg 07/10/17 02:59 Zofran Injection IVPUSH Q6H PRN NAUSEA ASSESSMENT/PLAN: 61 year old female with a hx of metastatic colon cancer to lungs and pelvis, hemorrhoids, ventral hernias, hypertension, hypothyroidism is admitted to the hospital for the treatment of abdominal pain likely 2/2 UTI vs ventral hernia and rectal bleeding #Abdominal pain 2/2 ventral hernia: stable -CT negative for any acute abdominal process; did find significant mass on right adrenal gland -Consult Dr. Esparza - surgery to evaluate pain/hernia - need to discuss with Dr. Kaiser about possible need for surgery -zofran for nausea -GI consult appreciated, no emergent endoscopy indicated #UTI: improved -continue ceftriaxone 1gm IV day 4 -IVF hydration @ 83 cc/hr #Hypertension: controlled -continue enalapril 20mg QD #Metastatic Colorectal Cancer: not an acute issue -last chemo Jun 27 -consult Dr. Kaiser, discuss about surgical management options for hernia #Hemorrhoids: stable -not currently bleeding #Hypothyroidism: -Synthoid 150 PO QD #FEN -NS @ 83cc/hr -replete electrolytes as necessary -clear liquid diet for now #Prophylaxis -SCDs #Disposition -Monitor on med-surg Visit type - Emergency Visit Emergency Visit: No - New Patient This patient is new to me today: No - Critical Care Critical Care patient: No <Fredis Jacome - Last Filed: 07/14/17 21:31> Physical Exam: Patient seen and examined with the fashion buying internship. Agree with the plan. Discussed with and both and Dr Kaiser will discuss the care with the patient in term of surgery. If the patient doesn't want to be operated will discharge the patient home.
[2017-07-14] MEDS: CEFTRIAXONE 1 G/50 ML PREMIX 50 ML IVPB SCH (21:34)
[2017-07-15] MEDS: SODIUM CHLORIDE 1,000 ML IV SCH ×2 (04:42→20:22)
[2017-07-15] MEDS: LEVOTHYROXINE NA 150 MCG TABLET PO SCH (06:43)
[2017-07-15] MEDS: HEPARIN NA (PORCINE) 5,000 UNITS/ML 1ML VIAL SQ SCH ×3 (06:43→21:24)
--- NOTE | 2017-07-15 08:22 | PN ---
Physical Exam: SUBJECTIVE: Patient seen and examined at bedside. Patient is in no acute distress and denies any abdominal pain unless palpating the hernia. Denies fevers, chills, nausea, vomiting. States she is still excreting the same amount of stool. OBJECTIVE: Vital Signs Period Temp Pulse Resp BP Sys/[place] Pulse Ox Last 24 Hr 97.8 F-98.3 F 67-79 18-18 131-173/65-92 99-99 GENERAL: The patient is awake, alert, and fully oriented, in no acute distress. NECK: Trachea midline, full range of motion, supple. LUNGS: Breath sounds equal, clear to auscultation bilaterally, no wheezes, no crackles, no accessory muscle use. HEART: Regular rate and rhythm, S1, S2 without murmur, rub or gallop. ABDOMEN: Obese, Soft, 2 ventral hernias noted on abdominal exam - 1 hernia on the RLQ was tender to palpation, nondistended, normoactive bowel sounds, no guarding, no rebound, no hepatosplenomegaly. EXTREMITIES: 2+ pulses, warm, well-perfused, no edema. NEUROLOGICAL: Cranial nerves II through XII grossly intact. Normal speech, gait not observed. PSYCH: Normal mood, normal affect. SKIN: Warm, dry, normal turgor, no rashes or lesions noted Laboratory Results - last 24 hr 07/14/17 07/14/17 07:30 07:30 WBC 4.9 D RBC 3.54 L Hgb 9.8 L Hct 30.7 L MCV 86.6 MCH 27.8 MCHC 32.1 RDW 22.2 H Plt Count 248 MPV 8.2 Neutrophils % No Result Required. Neutrophils % (Manual) 50.5 Band Neutrophils % 2.0 Lymphocytes % No Result Required. Lymphocytes % (Manual) 31.3 Monocytes % (Manual) 10 Eosinophils % (Manual) 6.1 H Basophils % (Manual) 0.0 Myelocytes % (Man) 0 Metamyelocytes 0 Platelet Estimate Normal Polychromasia 1+ Anisocytosis 1+ Microcytosis 1+ Sodium 141 Potassium 3.9 Chloride 105 Carbon Dioxide 30 Anion Gap 6 L BUN 10 Creatinine 0.8 Creat Clearance w eGFR > 60 Random Glucose 87 Calcium 8.5 Phosphorus 4.0 Magnesium 1.9 Total Bilirubin 0.5 AST 25 ALT 21 Alkaline Phosphatase 158 H Total Protein 6.2 L Albumin 2.8 L Active Medications Generic Name Dose Route Start Last Admin Trade Name Freq PRN Reason Stop Dose Admin Enalapril Maleate 20 mg 07/10/17 10:00 07/14/17 10:41 Vasotec - PO 20 mg DAILY DIAN Administration Heparin Sodium (Porcine) 5,000 unit 07/10/17 22:00 07/15/17 06:43 Heparin - SQ 5,000 unit TID DIAN Administration Sodium Chloride 1,000 mls @ 83 mls/hr 07/10/17 03:00 07/15/17 04:42 Normal Saline - IV 83 mls/hr ASDIR DIAN Administration CEFTRIAXONE 1 G/50 ML PREMIX 50 mls @ 100 mls/hr 07/10/17 22:00 07/14/17 21: 34 Ceftriaxone 1 Gm-D5w Bag IVPB 100 mls/hr HS DIAN Administration Levothyroxine Sodium 150 mcg 07/10/17 07:00 07/15/17 06:43 Synthroid - PO 150 mcg DAILY@0700 DIAN Administration Ondansetron HCl 4 mg 07/10/17 02:59 Zofran Injection IVPUSH Q6H PRN NAUSEA ASSESSMENT/PLAN: 61 year old female with a hx of metastatic colon cancer to lungs and pelvis, hemorrhoids, ventral hernias, hypertension, hypothyroidism is admitted to the hospital for the treatment of abdominal pain likely 2/2 UTI vs ventral hernia and rectal bleeding #Abdominal pain 2/2 ventral hernia: stable -CT negative for any acute abdominal process; did find significant mass on right adrenal gland -Consult Dr. Esparza - surgery to evaluate pain/hernia - need to discuss with Dr. Kaiser about possible need for surgery -zofran for nausea -GI consult appreciated, no emergent endoscopy indicated #UTI: improved -continue ceftriaxone 1gm IV day 4 -IVF hydration @ 83 cc/hr #Hypertension: controlled -continue enalapril 20mg QD #Metastatic Colorectal Cancer: not an acute issue -last chemo Jun 27 -consult Dr. Kaiser, discuss about surgical management options for hernia #Hemorrhoids: stable -not currently bleeding #Hypothyroidism: -Synthoid 150 PO QD #FEN -NS @ 83cc/hr -replete electrolytes as necessary -clear liquid diet for now #Prophylaxis -SCDs #Disposition -Monitor on med-surg Visit type - Emergency Visit Emergency Visit: No - New Patient This patient is new to me today: No - Critical Care Critical Care patient: No
[2017-07-15] MEDS: ENALAPRIL MALEATE 10 MG TABLET (FP) PO SCH (11:28)
--- NOTE | 2017-07-15 15:06 | PN ---
Progress Note (short form) - Note Progress Note: Patient expresses desire to go with hernia repair after discussing the risks, benefits, and alternatives. D/W Dr. Kaiser and he is of the opinion that she might benefit from hernia repair as her prognosis and senior care survival is still too early to tell. He plans to speak with the patient and will proceed from thereon. Patient will need cardiopulmonary evaluation and clearance if patient decides to proceed with surgery. Problem List - Problems (1) Recurrent incisional hernia with incarceration Code(s): K43.0 - INCISIONAL HERNIA WITH OBSTRUCTION, WITHOUT GANGRENE (2) Ventral hernia Code(s): K43.9 - VENTRAL HERNIA WITHOUT OBSTRUCTION OR GANGRENE Qualifiers: Obstruction and gangrene presence: without obstruction or gangrene Qualified Code(s): K43.9 - Ventral hernia without obstruction or gangrene
--- NOTE | 2017-07-15 17:01 | PN ---
Teaching Attending Note Name of Resident: Jesus Renee ATTENDING PHYSICIAN STATEMENT I saw and evaluated the patient. I reviewed the resident's note and discussed the case with the resident. I agree with the resident's findings and plan as documented. SUBJECTIVE: Patient is feeling better with no acute distress. Only pain on palpation of the abdomen. OBJECTIVE: Vital Signs Temperature 98.5 F 07/15/17 11:31 Pulse Rate 79 07/15/17 11:31 Respiratory Rate 18 07/15/17 11:31 Blood Pressure 140/65 07/15/17 11:31 O2 Sat by Pulse Oximetry (%) 99 07/14/17 21:00 CBCD WBC 4.9 K/mm3 (4.0-10.0) D 07/14/17 07:30 RBC 3.54 M/mm3 (3.60-5.2) L 07/14/17 07:30 Hgb 9.8 GM/dL (10.7-15.3) L 07/14/17 07:30 Hct 30.7 % (32.4-45.2) L 07/14/17 07:30 MCV 86.6 fl (80-96) 07/14/17 07:30 MCHC 32.1 g/dl (32.0-36.0) 07/14/17 07:30 RDW 22.2 % (11.6-15.6) H 07/14/17 07:30 Plt Count 248 K/MM3 (134-434) 07/14/17 07:30 MPV 8.2 fl (7.5-11.1) 07/14/17 07:30 CMP Sodium 141 mmol/L (136-145) 07/14/17 07:30 Potassium 3.9 mmol/L (3.5-5.1) 07/14/17 07:30 Chloride 105 mmol/L (98-107) 07/14/17 07:30 Carbon Dioxide 30 mmol/L (21-32) 07/14/17 07:30 Anion Gap 6 (8-16) L 07/14/17 07:30 BUN 10 mg/dL (7-18) 07/14/17 07:30 Creatinine 0.8 mg/dL (0.55-1.02) 07/14/17 07:30 Creat Clearance w eGFR > 60 (>60) 07/14/17 07:30 Random Glucose 87 mg/dL (74-106) 07/14/17 07:30 Calcium 8.5 mg/dL (8.5-10.1) 07/14/17 07:30 Total Bilirubin 0.5 mg/dL (0.2-1.0) 07/14/17 07:30 AST 25 U/L (15-37) 07/14/17 07:30 ALT 21 U/L (12-78) 07/14/17 07:30 Alkaline Phosphatase 158 U/L (45-117) H 07/14/17 07:30 Total Protein 6.2 g/dl (6.4-8.2) L 07/14/17 07:30 Albumin 2.8 g/dl (3.4-5.0) L 07/14/17 07:30 Current Medications Generic Name Dose Route Start Last Admin Trade Name Freq PRN Reason Stop Dose Admin Enalapril Maleate 20 mg 07/10/17 10:00 07/15/17 11:28 Vasotec - PO 20 mg DAILY DIAN Administration Heparin Sodium (Porcine) 5,000 unit 07/10/17 22:00 07/15/17 15:00 Heparin - SQ 5,000 unit TID DIAN Administration Sodium Chloride 1,000 mls @ 83 mls/hr 07/10/17 03:00 07/15/17 04:42 Normal Saline - IV 83 mls/hr ASDIR DIAN Administration CEFTRIAXONE 1 G/50 ML PREMIX 50 mls @ 100 mls/hr 07/10/17 22:00 07/14/17 21: 34 Ceftriaxone 1 Gm-D5w Bag IVPB 100 mls/hr HS DIAN Administration Levothyroxine Sodium 150 mcg 07/10/17 07:00 07/15/17 06:43 Synthroid - PO 150 mcg DAILY@0700 DIAN Administration Ondansetron HCl 4 mg 07/10/17 02:59 Zofran Injection IVPUSH Q6H PRN NAUSEA Home Medications Medication Instructions Recorded Enalapril Maleate [Vasotec] 20 mg PO DAILY 12/24/16 Levothyroxine [Synthroid -] 150 mcg PO DAILY 12/24/16 PE: distented, obese, ventral hernia bl on palpations rest of PE per resident's note ECG: Normal sinus rhythm, rate of 73, QTC 442, NO ST/T changes Radiology Reports: Abd/pel CT with IV contrast: Stable moderate to large sized ventral abdominal hernia containing small and large bowel without CT findings to suggest strangulation or proximal bowel obstruction. Prominent rectosigmoid colon, which may related to under distention. However, the possibility of inflammatory/ infectious proctitis versus underlying neoplastic process cannot be excluded. Mild to moderate right-sided hydroureteronephrosis likely secondary to distal ureter stricture adjacent to dystrophic coarse calcification in the right pelvic floor. No obvious obstruction , ureterolithiasis. Interval increase in size of pulmonary nodules in the left lower lobe with the largest one measuring approximately 1.5 cm, previously measured approximately 9 mm. Diffuse enlargement of the right adrenal gland abutting the right posterior hepatic lobe. Signed by Fabio Paige MD, 07/10/2017 00:25 EST ASSESSMENT/PLAN: Patient is a 61yo female with PMHx of colon CA with mets to lung and pelvis, HTN, Hypothyroidism, right kidney obstruction presented to the ED with abdominal pain and rectal bleeding. # Abdominal pain improved due to ventral abdominal hernia , will discuss with the family in am and Dr. Esparza already discussed with the patient suggesting that she should have surgery but due to surgical complications, will discuss with the patient further. as per GI; patient has internal hemorroids). Ct of abdomen no strangulation or obstruction as per report , tolerating diet well. Discussed with will see the patient today. GI consult appreciated. # Anemia is stable due to internal hemorroids and chemo and colon ca , will check with oncologist whether the patient is on any growth factor. # Acute UTI on Rocephin IV continue completed today #Right sided hydronephrosis , as per patient has an obstruction to right kidney in the past, likely not a new finding, Cr stable, no further intervention at this time. #Colon CA with mets oncology consult on the case, patient is on chemo regimen as per patient #HTN cont home enalapril # hypothyroidism cont home synthroid DVT PPX : SCDs, heparin sq will be decided in am surgery or not.
--- NOTE | 2017-07-15 18:59 | PN ---
Progress Note (short form) - Note Progress Note: Patient seen and examined Spoke with surgery. Hernia repair in this setting is palliative and high risk If Successful, it would decrease risk of future strangulation and it would also offer us an opportunity to give Avastin as a potential treatment to this patient for her metastatic colorectal ca. Spoke with patient and son at bedside. They would like discussion in [place]ian. I will have my nurse practicioner and myself meet with patient early AM and discuss case. If patient wants to think on this, she can be discharged and outpatient surgery can be arranged. ( Needs medical/cardiac clearance) If she is willing to proceed , will need clearance before planned procedure. Last Vital Signs Temp Pulse Resp BP Pulse Ox 98.5 F 79 18 140/65 99 07/15/17 11:31 07/15/17 11:31 07/15/17 11:31 07/15/17 11:31 07/14/17 21:00 Lungs - clear cor- RSR Abd- tenderness on palpatin right epigastrium, ventral hernias Ext- LE edema CBC, BMP 07/14/17 07:30 07/14/17 07:30 Current Medications Generic Name Dose Route Start Last Admin Trade Name Freq PRN Reason Stop Dose Admin Enalapril Maleate 20 mg 07/10/17 10:00 07/15/17 11:28 Vasotec - PO 20 mg DAILY DIAN Administration Heparin Sodium (Porcine) 5,000 unit 07/10/17 22:00 07/15/17 15:00 Heparin - SQ 5,000 unit TID DIAN Administration Sodium Chloride 1,000 mls @ 83 mls/hr 07/10/17 03:00 07/15/17 04:42 Normal Saline - IV 83 mls/hr ASDIR DIAN Administration CEFTRIAXONE 1 G/50 ML PREMIX 50 mls @ 100 mls/hr 07/10/17 22:00 07/14/17 21: 34 Ceftriaxone 1 Gm-D5w Bag IVPB 100 mls/hr HS DIAN Administration Levothyroxine Sodium 150 mcg 07/10/17 07:00 07/15/17 06:43 Synthroid - PO 150 mcg DAILY@0700 DIAN Administration Ondansetron HCl 4 mg 07/10/17 02:59 Zofran Injection IVPUSH Q6H PRN NAUSEA Impression: Metastatic colon ca Ventral hernias RECTAL BLEEDING Plan: Discuss with patient in AM with [place]ian speaking FOURDRIN[employer] MACHINE TENDER options and then decision re surgery or not Vs. discharge.
[2017-07-15] MEDS: CEFTRIAXONE 1 G/50 ML PREMIX 50 ML IVPB SCH (21:24)
[2017-07-16] MEDS: SODIUM CHLORIDE 1,000 ML IV SCH ×2 (06:23→09:28)
[2017-07-16] MEDS: LEVOTHYROXINE NA 150 MCG TABLET PO SCH (06:24)
[2017-07-16] MEDS: HEPARIN NA (PORCINE) 5,000 UNITS/ML 1ML VIAL SQ SCH ×2 (06:24→15:25)
--- NOTE | 2017-07-16 08:40 | PN ---
Progress Note (short form) - Note Progress Note: Patient seen and examined Still with abdominal pain on abdominal palpation No nausea, vomiting diarrhea. blood per rectum. Last Vital Signs Temp Pulse Resp BP Pulse Ox 98.3 F 77 70 H 144/78 99 07/16/17 06:00 07/16/17 06:00 07/16/17 06:00 07/16/17 06:00 07/15/17 21:00 HEENT: BETSY, EOM Intact Oropharynx: No thrush, No mucositis Cor: RSR, No murmurs, No gallops Lungs: Clear to P&A Abd: Soft, Normal bowel sounds, No organomegaly, pain on palpation right epigastrium Ext:LE edema Skin: No rashes, Integument intact CBC, BMP 07/14/17 07:30 07/14/17 07:30 Current Medications Generic Name Dose Route Start Last Admin Trade Name Freq PRN Reason Stop Dose Admin Enalapril Maleate 20 mg 07/10/17 10:00 07/15/17 11:28 Vasotec - PO 20 mg DAILY DIAN Administration Heparin Sodium (Porcine) 5,000 unit 07/10/17 22:00 07/16/17 06:24 Heparin - SQ 5,000 unit TID DIAN Administration Sodium Chloride 1,000 mls @ 83 mls/hr 07/10/17 03:00 07/16/17 06:23 Normal Saline - IV Not Given ASDIR DIAN CEFTRIAXONE 1 G/50 ML PREMIX 50 mls @ 100 mls/hr 07/10/17 22:00 07/15/17 21: 24 Ceftriaxone 1 Gm-D5w Bag IVPB 100 mls/hr HS DIAN Administration Levothyroxine Sodium 150 mcg 07/10/17 07:00 07/16/17 06:24 Synthroid - PO 150 mcg DAILY@0700 DIAN Administration Ondansetron HCl 4 mg 07/10/17 02:59 Zofran Injection IVPUSH Q6H PRN NAUSEA Impression: Metastatic colonca Ventral hernias Blood per rectum Discussed with [employer] AND APPEALS SPECIALIST interpreting option of surgery. Pros, cons, risks , benefits. At this time, patient wants to defer, think on it and go home. No objection. To follow up in office. If she agrees, she will see surgery as outpatient.
[2017-07-16] MEDS: ENALAPRIL MALEATE 10 MG TABLET (FP) PO SCH (09:29)
[2017-07-16 15:35] VITALS: BP 134/77; PULSE 74; TEMP 98.1
--- NOTE | 2017-07-16 16:02 | DS ---
Physical Exam: SUBJECTIVE: Patient seen and examined at bedside. No acute changes from yesterday. OBJECTIVE: Vital Signs Period Temp Pulse Resp BP Sys/[place] Pulse Ox Last 24 Hr 98 F-98.3 F 74-77 18-70 134-145/74-78 99-99 PHYSICAL EXAM GENERAL: The patient is awake, alert, and fully oriented, in no acute distress. NECK: Trachea midline, full range of motion, supple. LUNGS: Breath sounds equal, clear to auscultation bilaterally, no wheezes, no crackles, no accessory muscle use. HEART: Regular rate and rhythm, S1, S2 without murmur, rub or gallop. ABDOMEN: Obese, Soft, 2 ventral hernias noted on abdominal exam - 1 hernia on the RLQ was tender to palpation, nondistended, normoactive bowel sounds, no guarding, no rebound, no hepatosplenomegaly. EXTREMITIES: 2+ pulses, warm, well-perfused, no edema. NEUROLOGICAL: Cranial nerves II through XII grossly intact. Normal speech, gait not observed. PSYCH: Normal mood, normal affect. SKIN: Warm, dry, normal turgor, no rashes or lesions noted LABS HOSPITAL COURSE: Date of Admission:07/10/17 61 year old female with a past medical history of metastatic colon cancer to lungs and pelvis, hemorrhoids, ventral hernias, hypertension, and hypothyroidism presented to the hospital for abdominal pain. She was admitted and treated for UTI vs ventral hernia and rectal bleeding. Patient was treated with ceftriaxone for UTI. Patient's abdominal pain improved, and she only complained of tenderness around the areas where her two ventral hernias are located on the abdomen. A CT abdomen and pelvis was done which revealed no acute bowel pathology and no strangulation of the hernias. Dr. Kaiser and Dr. Esparza were consulted regarding whether or not patient would be needing surgery in the hospital. It was determined that patient is not in an emergent need of hernia repair, and it was explained to the patient that there is a risk of strangulation if left untreated. Per Dr. Esparza and Dr. Kaiser, patient is cleared to return home and think about scheduling elective surgery for hernia repair. She was discharged on 07/16/17. Date of Discharge: 07/16/17 Minutes to complete discharge: 35 Discharge Summary Reason For Visit: ABDOMINAL PAIN UTI MALIGNANT NEOPLASM CO Current Active Problems Abdominal pain (Acute) Internal hemorrhoid, bleeding (Acute) Rectal bleed (Acute) Recurrent incisional hernia with incarceration (Acute) UTI (urinary tract infection) (Acute) Ventral hernia (Acute) Colon cancer (Chronic) Condition: Stable - Instructions Diet, Activity, Other Instructions: You were admitted to the hospital for the treatment of urinary tract infection and abdominal pain likely from your two ventral hernias on your abdomen. Recommendations: #Please make an appointment to see Dr. Kaiser in the office for follow up of your chemotherapy #Please make an appointment to see Dr. Esparza (General Surgery) to discuss options for treatment regarding your ventral hernias. #It is very important that you follow up with the surgeon because if those hernias are not treated, there is a risk of strangulation of your intestines. #Please make an appointment to see your primary care physician within 1 week of discharge # follow with urology ( dr. Timmons) regarding your enlarged kidney If you experience severe abdominal pain, chest pain, shortness of breath, high fevers, please return to the emergency department immediately. Referrals: Jesus Archibald MD [Staff Physician] - Ramana Esparza MD [Staff Physician] - 2 Weeks Prieto Kaiser MD [Primary Care Provider] - 2 Weeks Disposition: HOME - Home Medications Comprehensive Discharge Medication List: Ambulatory Orders Enalapril Maleate [Vasotec] 20 mg PO DAILY 12/24/16 Levothyroxine [Synthroid -] 150 mcg PO DAILY 12/24/16 This patient is new to me today: No Emergency Visit: No Critical Care patient: No - Discharge Referral Referred to [facility] Med [facility].C[facility] No
--- NOTE | 2017-07-16 20:34 | PN ---
Teaching Attending Note Name of Resident: Jesus Renee ATTENDING PHYSICIAN STATEMENT I saw and evaluated the patient. I reviewed the resident's note and discussed the case with the resident. I agree with the resident's findings and plan as documented. SUBJECTIVE:seen at 12:15 pm no fever or chills . no abd pain , feels much better OBJECTIVE: NAD Cv: RRR Lungs: CTAB ext : no edema Abd: soft, Nd, minimal TTP in R periumbilical area , nl BS , no rebound ASSESSMENT AND PLAN: Patient is a 61yo female with PMHx of colon CA with mets to lung and pelvis, HTN, Hypothyroidism, presented to the ED with abdominal pain and rectal bleeding. 1- Abd pain, due to ventral wall hernia 2- chronci anemai 3- R sided hydro , chronic 4- colon cancer on chemo 5- HTN 6- UTI plan : -pt prefer to get sx as out p t. - will f/u with sx and Onc and PCP - finished 6 days of rocephin dc home
== END 2017-07-16 16:16 | disposition home or self-care (01) | DRG 394 ==
LOC: JER 14:47 → JERBED 07-10 01:10 → J5S 07-10 20:54
PROVIDERS: ADMIT Internal Medicine; ATTEND Internal Medicine
DX: K43.9 Ventral hernia without obstruction or gangrene (principal); C18.9 Malignant neoplasm of colon, unspecified; C79.89 Secondary malignant neoplasm of other specified sites; N39.0 Urinary tract infection, site not specified; N13.30 Unspecified hydronephrosis; K62.5 Hemorrhage of anus and rectum; C78.02 Secondary malignant neoplasm of left lung; C78.01 Secondary malignant neoplasm of right lung; I10 Essential (primary) hypertension; E03.9 Hypothyroidism, unspecified; D64.9 Anemia, unspecified; K64.8 Other hemorrhoids
CPT/HCPCS: 36415; 74176-TC; 80048; 80053; 81003; 81015; 82272; 83735; 84100; 85025; 85027; 85610; 86850; 86900; 86901; 93005; 93010; 99283-25; J1644

== ENCOUNTER 2017-07-22 13:25 | Inpatient (IN) | payer MEDICARE, OTHER ==
--- NOTE | 2017-07-22 14:06 | PDOC ---
History of Present Illness - General Chief Complaint: CVA/TIA Stated Complaint: SLURRED SPEECH Time Seen by Provider: 07/22/17 13:53 History Source: Patient - History of Present Illness Initial Comments: 07/27/17 02:12 Patient is a 61 y.o. female with colon cancer with metasis to lungs and pelvis, HTN, hypothyroidism presents with slurred speech for 3 days as well as intermittent lip smacking. Patient denies any focal paralysis, weakness, confusion or cognitive deficits. Patient denies any recent travel, medication changes. Patient denies chest pain, shortness of breath, nausea/vomiting, diarrhea/ constipation. Past History - Past Medical History Allergies/Adverse Reactions: Allergies Allergy/AdvReac Type Severity Reaction Status Date / Time acetaminophen [From Tylenol] Allergy Severe Verified 07/22/17 13:37 ciprofloxacin [From Cipro] Allergy Severe Verified 07/22/17 13:37 ciprofloxacin HCl Allergy Severe Verified 07/22/17 13:37 [From Cipro] loratadine [From Claritin] Allergy Severe Verified 07/22/17 13:37 Penicillins Allergy Severe Verified 07/22/17 13:37 Home Medications: Ambulatory Orders Enalapril Maleate [Vasotec] 20 mg PO DAILY 12/24/16 Levothyroxine [Synthroid -] 150 mcg PO DAILY 12/24/16 Simvastatin [Zocor -] 10 mg PO HS 07/22/17 Dexamethasone [Decadron -] 4 mg PO Q6H #120 tablet 07/24/17 Levetiracetam [Keppra -] 500 mg PO BID #60 tablet 07/24/17 Anemia: No Asthma: No Cancer: Yes (lung, lumph nodes , pelvic, COLON) CVA: No COPD: No CHF: No DVT: No Dementia: No Diabetes: No GI Disorders: No Disorders: No HTN: Yes Hypercholesterolemia: No Liver Disease: No Seizures: No Thyroid Disease: Yes (HYPO) - Surgical History Abdominal Surgery: Yes (COLON CANCER 2011) Appendectomy: No Cardiac Surgery: No Cholecystectomy: Yes Lung Surgery: No Neurologic Surgery: No Orthopedic Surgery: No - Immunization History Immunization Up to Date: Yes - Suicide/Smoking/Psychosocial Hx Smoking History: Never smoked Information on smoking cessation initiated: No Hx Alcohol Use: No Drug/Substance Use Hx: No Substance Use Type: None Hx Substance Use Treatment: No Review of Systems - Review of Systems Constitutional: No: Chills, Fever HEENTM: No: Recent change in vision Respiratory: No: Shortness of Breath Cardiac (ROS): No: Chest Pain ABD/GI: No: Constipated, Diarrhea, Nausea, Vomiting *Physical Exam - Vital Signs Last Vital Signs Temp Pulse Resp BP Pulse Ox 97.8 F 83 16 159/56 100 07/22/17 13:40 07/22/17 13:40 07/22/17 13:40 07/22/17 13:40 07/22/17 13:40 - Physical Exam General Appearance: Yes: Nourished, Appropriately Dressed HEENT: positive: EOMI, KAVITA Neck: positive: Trachea midline, Supple Respiratory/Chest: positive: Lungs Clear Cardiovascular: positive: S1, S2 Gastrointestinal/Abdominal: positive: Normal Bowel Sounds, Soft ED Treatment Course - LABORATORY CBC & Chemistry Diagram: 07/23/17 06:15 07/23/17 06:15 Medical Decision Making - Medical Decision Making 07/27/17 02:17 Patient is a 61 y.o. female with a h/o colon cancer with lung mets who presents with 3 days of slurred speech and intermittent lip smacking. Differential DDx for CVA vs. brain metases. CT Head negative for ischemic event/bleed/ herniation however showed hyperdense lesion in R frontal region with surrounding edema likely metasis as well as multiple metases in L cerebellum. Patient admitted for MRI. Case d/w neurology. Patient started on Decadron and Keppra. Will continue to monitor patient while in ED. *DC/Admit/Observation/Transfer Diagnosis at time of Disposition: Brain metastases, Seizure Colon cancer Qualifiers: Colon location: unspecified part of colon Qualified Code(s): C18.9 - Malignant neoplasm of colon, unspecified - Discharge Dispostion Disposition: HOME Condition at time of disposition: Improved - Prescriptions - Referrals - Patient Instructions - Post Discharge Activity
[2017-07-22] MEDS: SODIUM CHLORIDE 1,000 ML IV SCH (15:00)
[2017-07-22 15:34] LABS: BASO % 0.6 % (0-2.0); EOS % 3.1 % (0-4.5); HEMATOCRIT 34.9 % (32.4-45.2); HEMOGLOBIN 11.3 GM/dL (10.7-15.3); LYMPH % 11.6 % (8-40); MCH 27.9 pg (25.7-33.7); MCHC 32.5 g/dl (32.0-36.0); MEAN CELL VOLUME 86.1 fl (80-96); MEAN PLT VOLUME 8.4 fl (7.5-11.1); MONO % 6.8 % (3.8-10.2); NEUT % 77.9 % (42.8-82.8); RBC 4.06 M/mm3 (3.60-5.2); WHITE BLOOD COUNT 13.8 K/mm3 (4.0-10.0)
[2017-07-22 15:39] LABS: ADD RBC MORPHOLOGY YES
--- NOTE | 2017-07-22 15:45 | PDOC ---
Attending Attestation - Resident Resident Name: Samantha Rendon - ED Attending Attestation I have performed the following: I have examined & evaluated the patient, The case was reviewed & discussed with the resident, I agree w/resident's findings & plan, Exceptions are as noted - Medical Decision Making 07/22/17 15:43 61-year-old female with a history of metastatic colon cancer to lungs and pelvis , hemorrhoids, ventral hernias, hypertension, and hypothyroidism presents with intermittent slurred speech since last . Vitals unremarkable for hypertension to the 150s systolic. Exam with slurred speech but otherwise is neurologically intact. Differential includes but not limited to TIA versus CVA versus intracranial metastasis. Due to last known normal being last week and malignancy patient is not a TPA candidate. We'll obtain a CT had and consider MRI if CT head is unremarkable. Patient will likely need a neurology consult and admission.
[2017-07-22 15:47] LABS: INR 1.06 (0.82-1.09)
[2017-07-22 16:23] LABS: URINE APPEARANCE CLEAR; URINE BILIRUBIN NEGATIVE (NEGATIVE); URINE BLOOD 2+ (NEGATIVE); URINE COLOR STRAW; URINE GLUCOSE (UA) NEGATIVE (NEGATIVE); URINE KETONE NEGATIVE (NEGATIVE); URINE NITRITE NEGATIVE (NEGATIVE); URINE PROTEIN NEGATIVE (NEGATIVE); URINE UROBILINOGEN NEGATIVE mg/dL (0.2-1.0)
[2017-07-22 16:27] LABS: URINE LEUK ESTERASE 1+ (NEGATIVE)
[2017-07-22 16:35] LABS: ANISOCYTOSIS 2+; MACROCYTOSIS 1+
[2017-07-22 16:36] LABS: PLATELET ESTIMATE ADEQUATE
[2017-07-22 16:37] LABS: URINE BACTERIA FEW /hpf (NONE SEEN)
[2017-07-22] MEDS ORDERED: levETIRAcetam 500 MG/5 ML INJECTION VIAL IVPB ONE ×2 (18:25→18:27)
--- NOTE | 2017-07-22 18:52 | PDOC ---
*Physical Exam - Vital Signs Last Vital Signs Temp Pulse Resp BP Pulse Ox 97.8 F 83 16 159/56 97 07/22/17 13:40 07/22/17 13:40 07/22/17 13:40 07/22/17 13:40 07/22/17 17:21 ED Treatment Course - LABORATORY CBC & Chemistry Diagram: 07/22/17 15:30 07/22/17 17:40 - ADDITIONAL ORDERS Additional order review: Laboratory Results 07/22/17 07/22/17 07/22/17 16:00 15:45 14:11 PT with INR INR Sodium Cancelled Potassium Cancelled Chloride Cancelled Carbon Dioxide Cancelled Anion Gap Cancelled BUN Cancelled Creatinine Cancelled Creat Clearance w eGFR Cancelled Random Glucose Cancelled Calcium Cancelled Total Bilirubin Cancelled AST Cancelled ALT Cancelled Alkaline Phosphatase Cancelled Creatine Kinase Cancelled Troponin I Cancelled Total Protein Cancelled Albumin Cancelled Triglycerides Cancelled Cholesterol Cancelled Total LDL Cholesterol Cancelled HDL Cholesterol Cancelled Urine Color Straw Urine Appearance Clear Urine pH 6.0 Ur Specific [place] 1.014 Urine Protein Negative Urine Glucose (UA) Negative Urine Ketones Negative Urine Blood 2+ H Urine Nitrite Negative Urine Bilirubin Negative Urine Urobilinogen Negative Ur Leukocyte Esterase 1+ H Urine WBC (Auto) 39 Urine RBC (Auto) 63 Urine Bacteria Few Blood Type A POSITIVE Antibody Screen Negative 07/22/17 14:11 PT with INR 12.00 H INR 1.06 Sodium Potassium Chloride Carbon Dioxide Anion Gap BUN Creatinine Creat Clearance w eGFR Random Glucose Calcium Total Bilirubin AST ALT Alkaline Phosphatase Creatine Kinase Troponin I Total Protein Albumin Triglycerides Cholesterol Total LDL Cholesterol HDL Cholesterol Urine Color Urine Appearance Urine pH Ur Specific [place] Urine Protein Urine Glucose (UA) Urine Ketones Urine Blood Urine Nitrite Urine Bilirubin Urine Urobilinogen Ur Leukocyte Esterase Urine WBC (Auto) Urine RBC (Auto) Urine Bacteria Blood Type Antibody Screen 07/22/17 15:30 RBC 4.06 MCV 86.1 MCHC 32.5 RDW 21.0 H MPV 8.4 Neutrophils % 77.9 D Lymphocytes % 11.6 D Monocytes % 6.8 Eosinophils % 3.1 Basophils % 0.6 Medical Decision Making - Medical Decision Making 07/22/17 18:[address] Sebas Hernandez ct scan shows rounded hyperdense lesion in rt frontal region with edema in surrounding rt frontal lobe with regional mass effect, no significant midline shift, no herniation pattern of hydrocephalus -presence of hyperostosis in adjacent calvarium suggest extral axial mass such as meningioma -constrast enhanced MRI brain is recommended 07/22/17 19:07 -I spoke w Dr Sebas Hernandez and pt was loaded w keppra 1 gm after a witnessed seizure with lip smacking but no LOC or classic tonic clonic szs -concern for dural based lesion (metastasis) -decadron 10mg stat followed by decadron 4 mg Q 6 hours -keppra 500mg BID po - 07/22/17 23:37 I received a call from the radiologist, Dr. Fregoso read the MRI for this patient. Impression multiple metastatic lesions. The larger in the right parietal area measuring about 2 cm with significant amount of edema. There are multiple metastases in the left cerebellum. There is not any evidence of herniation. There is no midline shift. There is no bleed *DC/Admit/Observation/Transfer Diagnosis at time of Disposition: Brain metastases, Seizure Colon cancer Qualifiers: Colon location: unspecified part of colon Qualified Code(s): C18.9 - Malignant neoplasm of colon, unspecified - Discharge Dispostion Admit: Yes - Referrals - Patient Instructions - Post Discharge Activity
[2017-07-22 18:56] LABS: ALBUMIN 3.4 g/dl (3.4-5.0); ANION GAP 9 (8-16); BLOOD UREA NITROGEN 15 mg/dL (7-18); CALCIUM 9.2 mg/dL (8.5-10.1); CHLORIDE 103 mmol/L (98-107); CO2 27 mmol/L (21-32); GLUCOSE,RANDOM 74 mg/dL (74-106); POTASSIUM 4.4 mmol/L (3.5-5.1); SODIUM 139 mmol/L (136-145)
[2017-07-22 19:01] LABS: ALK PHOS 181 U/L (45-117); BILIRUBIN,TOTAL 0.4 mg/dL (0.2-1.0); CREATININE 0.8 mg/dL (0.55-1.02); SGOT/AST 37 U/L (15-37); SGPT/ALT 21 U/L (12-78); TOT PROT 7.3 g/dl (6.4-8.2)
[2017-07-22] MEDS ORDERED: DEXAMETHASONE SOD PHOSPHATE 10 MG/1 ML VIAL IVPUSH ONE (19:07)
[2017-07-22] MEDS ORDERED: DEXAMETHASONE SOD PHOSPHATE 10 MG/1 ML VIAL ONE (19:27)
--- NOTE | 2017-07-22 19:46 | PN ---
Teaching Attending Note Name of Resident: Ric Walker ATTENDING PHYSICIAN STATEMENT I saw and evaluated the patient. I reviewed the resident's note and discussed the case with the resident. I agree with the resident's findings and plan as documented. SUBJECTIVE: 61 yo F with hx. of metastatic colon ca to lungs and pelvis, hemmoriods, ventral hernia, htn, and hypothyriodism who presents with slurred speech. Slurred speech has been going on 1 week in duration. Pt. had lip smacking and family could not understand speech. States she is back to her baseline at this point. Denies any weakness or incontinance. Denied any tongue biting during episode. No chest pain, pressure, shortness of breath, fever, dizziness or headaches. OBJECTIVE: Physical: VS: Vital Signs Period Temp Pulse Resp BP Sys/[place] Pulse Ox Last 24 Hr 97.8 F 80-83 16-20 152-159/56-70 97-100 GEN: NAD, resting in bed, Able to speak full sentences, [id number] HEENT: NCAT, PERRL, throat without erythema or exudates CARD: RRR S1, S2 RESP: CTAB ABD: BSx4, NTD to palpation EXT: - C/C/E NEURO: CN II-XII intact, MS +5/5 CBCD WBC 13.8 K/mm3 (4.0-10.0) H D 07/22/17 15:30 RBC 4.06 M/mm3 (3.60-5.2) 07/22/17 15:30 Hgb 11.3 GM/dL (10.7-15.3) D 07/22/17 15:30 Hct 34.9 % (32.4-45.2) 07/22/17 15:30 MCV 86.1 fl (80-96) 07/22/17 15:30 MCHC 32.5 g/dl (32.0-36.0) 07/22/17 15:30 RDW 21.0 % (11.6-15.6) H 07/22/17 15:30 Plt Count No Result Required. 07/22/17 15:30 MPV 8.4 fl (7.5-11.1) 07/22/17 15:30 CMP Sodium Cancelled 07/22/17 14:11 Potassium Cancelled 07/22/17 14:11 Chloride Cancelled 07/22/17 14:11 Carbon Dioxide Cancelled 07/22/17 14:11 Anion Gap Cancelled 07/22/17 14:11 BUN Cancelled 07/22/17 14:11 Creatinine Cancelled 07/22/17 14:11 Creat Clearance w eGFR Cancelled 07/22/17 14:11 Random Glucose Cancelled 07/22/17 14:11 Calcium Cancelled 07/22/17 14:11 Total Bilirubin Cancelled 07/22/17 14:11 AST Cancelled 07/22/17 14:11 ALT Cancelled 07/22/17 14:11 Alkaline Phosphatase Cancelled 07/22/17 14:11 Total Protein Cancelled 07/22/17 14:11 Albumin Cancelled 07/22/17 14:11 CARDIAC ENZYMES Creatine Kinase Cancelled 07/22/17 14:11 Troponin I Cancelled 07/22/17 14:11 CT HEAD- 1.8X1.8X1.5 cm rounded hyperdense lesion in r. frontal region w. edema , regional mass effect. Prescense of hyperstosis in adjacent calvarium suggests extra- axial mass such as meningioma. CXR- PENDING EKG- NSR, Home Medications Medication Instructions Recorded Enalapril Maleate [Vasotec] 20 mg PO DAILY 12/24/16 Levothyroxine [Synthroid -] 150 mcg PO DAILY 12/24/16 Simvastatin [Zocor] 10 mg PO HS 07/22/17 MRI BRAIN w CON: Enhancing lesions within bilateral hemispheres and L. Cerebellum measuring upo 1.9X1.8 cm. Edema surrounding lesions most prominant in R. frontal lobe extending into precentral gyrus, with regional sulcal effacement. No midline shift or herniation ASSESSMENT AND PLAN: 61 yo F with hx. of metastatic colon ca to lungs and pelvis, hemmoriods, ventral hernia, htn, and hypothyriodism who presents with slurred speech, found to have brain mass. 1.) Metastatic Brain Lesions - MRI Brain As above - Dexamethsone 10 IV X1, then 4 Iv q6h - Keppra seizure Ppx - Neuro sx. consult - Onc. consult - Neuro consult - Neuro Checks 2.) Metastatic Colon ca - Previously on FOLFIRI 3.) R. Shoulder Pain - XRAY R. Shoulder 4.) Hypothyriodism - C/W Synthriod - Chk. TSH 5.) HTN - C/W Vasotec 6.) Dvt Ppx - SCDS Place in Med-Tele
--- NOTE | 2017-07-22 21:00 | HP ---
CHIEF COMPLAINT: lip-smacking unable to speak PCP: Dr. Cora Skaggs Heme/Onc Dr. Kaiser HISTORY OF PRESENT ILLNESS: Pt is a 61 y/o F with PMH significant for metastatic CA to lung, pelvis, colon, LN) who presented to ED following an episode of lip-smacking an inability to speak. Pt accompanied by daughter who witnessed the episode. Pt was unable to speak but was cognitively intact and was gesturing to family to document the time. Pt did not have incontinence or shaking of the body. The episode lasted about 4 minutes and was associated with numbness of the left hand, which has resolved. Pt denies CP, SOB, n/v/d, bowel/bladder incontinence, blood in urine/stool. Pt was initially diagnosed with Colon CA in in [place] 1 year ago and was told there was nothing to do and [place]. She is followed by Dr. Kaiser. Pt also complains of moderate R shoulder pain and very mild left leg pain. No other complaints. ER course was notable for: (1) WBC 13.8, UA 2+ blood, 1+ LE, 29WBC, 63 RBC (2) CT head 1.8x1.8x1.5 cm R frontal lesion with surrounding edema (3) Dr. Mike Hernandez consulted. Pt loaded on Decadron and Keppra Recent Travel: From [place] 1 yr ago PAST MEDICAL HISTORY: CA of colon (likely primary)/LN/pelvic/lung, HTN, Hypothyroid, hemorrhoids, ventral hernias PAST SURGICAL HISTORY: Colon surgery (? hemicolectomy) 2012, cholecystectomy Social History: Smoking: denies Alcohol: denies Drugs: denies Family History: denies Allergies acetaminophen [From Tylenol] Allergy (Severe, Verified 07/22/17 13:37) THROAT PARALYZES ciprofloxacin [From Cipro] Allergy (Severe, Verified 07/22/17 13:37) SWELLING OF EYES AND MOUTH ciprofloxacin HCl [From Cipro] Allergy (Severe, Verified 07/22/17 13:37) SWELLING OF EYES AND MOUTH loratadine [From Claritin] Allergy (Severe, Verified 07/22/17 13:37) FACE GETS SWOLLEN Penicillins Allergy (Severe, Verified 07/22/17 13:37) SWELLING OF MY FACE AND HANDS HOME MEDICATIONS: Home Medications Medication Instructions Recorded Enalapril Maleate [Vasotec] 20 mg PO DAILY 12/24/16 Levothyroxine [Synthroid -] 150 mcg PO DAILY 12/24/16 Simvastatin [Zocor] 10 mg PO HS 07/22/17 REVIEW OF SYSTEMS CONSTITUTIONAL: Absent: fever, chills, diaphoresis, generalized weakness, malaise, loss of appetite, weight change HEENT: Absent: rhinorrhea, nasal congestion, throat pain, throat swelling, difficulty swallowing, mouth swelling, ear pain, eye pain, visual changes CARDIOVASCULAR: Absent: chest pain, syncope, palpitations, irregular heart rate, lightheadedness , peripheral edema RESPIRATORY: Absent: cough, shortness of breath, dyspnea with exertion, orthopnea, wheezing, stridor, hemoptysis GASTROINTESTINAL: Absent: abdominal pain, abdominal distension, nausea, vomiting, diarrhea, constipation, melena, hematochezia GENITOURINARY: Absent: dysuria, frequency, urgency, hesitancy, hematuria, flank pain, genital pain MUSCULOSKELETAL: Absent: myalgia, arthralgia, joint swelling, back pain, neck pain SKIN: Absent: rash, itching, pallor HEMATOLOGIC/IMMUNOLOGIC: Absent: easy bleeding, easy bruising, lymphadenopathy, frequent infections ENDOCRINE: Absent: unexplained weight gain, unexplained weight loss, heat intolerance, cold intolerance NEUROLOGIC: seizure Absent: headache, focal weakness or paresthesias, dizziness, unsteady gait, mental status changes, bladder or bowel incontinence PSYCHIATRIC: Absent: anxiety, depression, suicidal or homicidal ideation, hallucinations. PHYSICAL EXAMINATION Vital Signs - 24 hr 07/22/17 07/22/17 07/22/17 13:40 17:21 19:44 Temperature 97.8 F Pulse Rate 83 Pulse Rate [ 80 Right] Respiratory 16 20 Rate Blood Pressure 159/56 Blood Pressure 152/70 [Right] O2 Sat by Pulse 100 97 Oximetry (%) GENERAL: Awake, alert, and fully oriented, in no acute distress. HEAD: Normal with no signs of trauma. EYES: Pupils equal, round and reactive to light, extraocular movements intact, sclera anicteric, conjunctiva clear. No lid lag. EARS, NOSE, THROAT: oropharynx clear without exudates. Moist mucous membranes. NECK: Normal range of motion, supple without lymphadenopathy, JVD, or masses. LUNGS: Breath sounds equal, clear to auscultation bilaterally. No wheezes, and no crackles. No accessory muscle use. HEART: Regular rate and rhythm, normal S1 and S2 without murmur, rub or gallop. ABDOMEN: Soft, tender to palpation RLQ at site of previous injections, not distended, normoactive bowel sounds, no guarding, no rebound, no masses. No hepatomegaly or splenomegaly. MUSCULOSKELETAL: R shoulder TTP at AC joint. No bony deformities or tenderness. No CVA tenderness. UPPER EXTREMITIES: 2+ pulses, warm, well-perfused. No cyanosis. No clubbing. No peripheral edema. LOWER EXTREMITIES: 2+ pulses, warm, well-perfused. No calf tenderness. No peripheral edema. NEUROLOGICAL: Cranial nerves II-XII intact. Normal speech. No pronator drift. Finger to nose test normal. Sensation intact. PSYCHIATRIC: Cooperative. Good eye contact. Appropriate mood and affect. SKIN: Warm, dry, normal turgor, no rashes or lesions noted, normal capillary refill. Laboratory Results - last 24 hr 07/22/17 07/22/17 07/22/17 14:11 14:11 15:30 WBC 13.8 H D RBC 4.06 Hgb 11.3 D Hct 34.9 MCV 86.1 MCH 27.9 MCHC 32.5 RDW 21.0 H Plt Count No Result Required. MPV 8.4 Neutrophils % 77.9 D Lymphocytes % 11.6 D Monocytes % 6.8 Eosinophils % 3.1 Basophils % 0.6 Platelet Estimate Adequate Platelet Comment Polychromasia 1+ Anisocytosis 2+ Macrocytosis 1+ PT with INR 12.00 H INR 1.06 Sodium Cancelled Potassium Cancelled Chloride Cancelled Carbon Dioxide Cancelled Anion Gap Cancelled BUN Cancelled Creatinine Cancelled Creat Clearance w eGFR Cancelled Random Glucose Cancelled Calcium Cancelled Total Bilirubin Cancelled AST Cancelled ALT Cancelled Alkaline Phosphatase Cancelled Creatine Kinase Cancelled Troponin I Cancelled Total Protein Cancelled Albumin Cancelled Triglycerides Cancelled Cholesterol Cancelled Total LDL Cholesterol Cancelled HDL Cholesterol Cancelled Urine Color Urine Appearance Urine pH Ur Specific [place] Urine Protein Urine Glucose (UA) Urine Ketones Urine Blood Urine Nitrite Urine Bilirubin Urine Urobilinogen Ur Leukocyte Esterase Urine WBC (Auto) Urine RBC (Auto) Urine Bacteria Blood Type Antibody Screen 07/22/17 07/22/17 07/22/17 15:45 16:00 17:40 WBC RBC Hgb Hct MCV MCH MCHC RDW Plt Count MPV Neutrophils % Lymphocytes % Monocytes % Eosinophils % Basophils % Platelet Estimate Platelet Comment Polychromasia Anisocytosis Macrocytosis PT with INR INR Sodium 139 Potassium 4.4 Chloride 103 Carbon Dioxide 27 Anion Gap 9 BUN 15 Creatinine 0.8 Creat Clearance w eGFR > 60 Random Glucose 74 Calcium 9.2 Total Bilirubin 0.4 AST 37 ALT 21 Alkaline Phosphatase 181 H Creatine Kinase Troponin I Total Protein 7.3 Albumin 3.4 Triglycerides Cholesterol Total LDL Cholesterol HDL Cholesterol Urine Color Straw Urine Appearance Clear Urine pH 6.0 Ur Specific [place] 1.014 Urine Protein Negative Urine Glucose (UA) Negative Urine Ketones Negative Urine Blood 2+ H Urine Nitrite Negative Urine Bilirubin Negative Urine Urobilinogen Negative Ur Leukocyte Esterase 1+ H Urine WBC (Auto) 39 Urine RBC (Auto) 63 Urine Bacteria Few Blood Type A POSITIVE Antibody Screen Negative 07/22/17 17:40 WBC RBC Hgb Hct MCV MCH MCHC RDW Plt Count MPV Neutrophils % Lymphocytes % Monocytes % Eosinophils % Basophils % Platelet Estimate Platelet Comment Polychromasia Anisocytosis Macrocytosis PT with INR INR Sodium Potassium Chloride Carbon Dioxide Anion Gap BUN Creatinine Creat Clearance w eGFR Random Glucose Calcium Total Bilirubin AST ALT Alkaline Phosphatase Creatine Kinase 55 Troponin I < 0.02 Total Protein Albumin Triglycerides Cholesterol Total LDL Cholesterol HDL Cholesterol Urine Color Urine Appearance Urine pH Ur Specific [place] Urine Protein Urine Glucose (UA) Urine Ketones Urine Blood Urine Nitrite Urine Bilirubin Urine Urobilinogen Ur Leukocyte Esterase Urine WBC (Auto) Urine RBC (Auto) Urine Bacteria Blood Type Antibody Screen ASSESSMENT/PLAN: Pt is a 61 y/o F w/ PMH metastatic CA who presented to ED with seizure-like symptoms of lip-smacking and inability to speak. Brain CT in ED revealed R frontal lesion with edema. #Brain lesion -likely metastatic disease -identified on CT: 1.8 x 1.8 x 1.5 cm R frontal with edema -neurosurg consulted (Dr. Mike Hernandez) -neurology consulted (Dr. Houston) -NPO -elevate head of bed -fall risk precautions -Decadron 4q6 per neurosurg -Keppra 500 BID -Heme/onc consulted (Dr. Kaiser) -BGM + ISS as pt on Decadron -MRI with contrast #Metastatic CA -lung, LN, pelvis, colon -Right shoulder chemoport -chemo per Heme/Onc. Follows with Aw[facility] #Right shoulder pain -R shoulder XR #HTN -c/w vasotec #Hypothyroid -c/w synthroid #FEN -NS at 42 -lytes wnl -NPO except meds #Dispo -Admit to Tele Amarjit Kern MD PGY-1 IM Visit type - Emergency Visit Emergency Visit: Yes Care time: The patient presented to the Emergency Department on the above date and was hospitalized for further evaluation of their emergent condition. - New Patient This patient is new to me today: Yes Date on this admission: 07/22/17 - Critical Care Critical Care patient: No
[2017-07-22] MEDS: DEXAMETHASONE SOD PHOSPHATE 4 MG/1 ML VIAL IVPUSH SCH (21:25)
[2017-07-22] MEDS: INSULIN SLIDING SCALE (NOVOLOG) 1 VIAL SQ SCH (21:53)
[2017-07-22] MEDS: levETIRAcetam 500 MG/5 ML INJECTION VIAL IVPB SCH (21:58)
[2017-07-22] MEDS: ATORVASTATIN CA 10 MG TABLET (FP) PO SCH (22:53)
[2017-07-23] MEDS: DEXAMETHASONE SOD PHOSPHATE 4 MG/1 ML VIAL IVPUSH SCH ×4 (03:05→21:36)
[2017-07-23] MEDS ORDERED: methylPREDNISolone NA SUCC 40 MG/1 ML VIAL ONE (03:06)
[2017-07-23] MEDS: INSULIN SLIDING SCALE (NOVOLOG) 1 VIAL SQ SCH ×4 (07:16→21:35)
[2017-07-23 07:53] LABS: BASO % 0.3 % (0-2.0); HEMATOCRIT 33.5 % (32.4-45.2); HEMOGLOBIN 10.7 GM/dL (10.7-15.3); LYMPH % 10.3 % (8-40); MCH 27.5 pg (25.7-33.7); MEAN PLT VOLUME 8.3 fl (7.5-11.1); MONO % 1.9 % (3.8-10.2); NEUT % 87.5 % (42.8-82.8); PLATELET COUNT 324 K/MM3 (134-434); RBC 3.89 M/mm3 (3.60-5.2); WHITE BLOOD COUNT 7.6 K/mm3 (4.0-10.0)
--- NOTE | 2017-07-23 08:01 | PN ---
Progress Note (short form) - Note Progress Note: NEUROSURGERY CONSULT DICTATED Pt examined Chart reviewed History obtained Son at bedside 61 yo RH female with h/o colon CA (adenocarcinoma) diagnosed and initially operated on in 2011 in [place] with mets to lungs and pelvis, and adrenal, ventral hernia s/p repair in 2014, HTN, and hypothyriodism presents with slurred speech x 1 week. Some smacking with associated transient land and hand paresis/shaking. No LOC. Denies any H/A, N/V, weakness or incontinance. No recent infections. Did undergo adjuvant chemo and abd/pelvic RT by report. Mild R shoulder pain. PE: AF, VSS HEENT- NC/AT, Neck- supple, no bruit; Cor- RRR; Lungs- CTA B; Abd- benign, obese , incisions healed; Ext- no sign of DVT Speech fluent in [place]; oriented x3 CN- intact II-XII; Motor- 5/5 with minimal L UE upwards drift; Sensation- intact LT, vibration; DTR, L toe upgoing; Cerebellar- intact FTN B Head CT- R frontal GW junction hyperdense lesion with vasogenic edema and mild mass effect MRI w/ and w/o- R frontal opercular 1.5 x 1.8 cm enhancing lesion with edema; punctate signal changes c/w intratumoral microhemorrhage, R medial temporal 7 mm ; L posterior occipital 8 mm, and L medial cerebellar 8 mm enhancing lesionss c/ w additional mets R shoulder x-rays- negative for acute pathology Labs reviewed Stage IV colon CA with mets to brain (h/o mets to lungs, adrenal, pelvis) Decadron 10 mg then 4 mg q 6hrs Protonix for gastritis prophylaxis Keppra for sz prophylaxis Given multiple lesions and largest is over frontal operculum (caused speech difficulty so likely dominant hemisphere) and 3 other smaller mets, would favor gamma knife SRS over surgery or whole brain RT if logistically feasible; pros and cons discussed Consult RT - d/w Dr Amanda Med oncology f/u (seen Dr Kaiser previously) Check urine culture result Pt and son understand and are in agreement
--- NOTE | 2017-07-23 08:09 | EKG ---
Test Reason : Blood Pressure : / mmHG Vent. Rate : 087 BPM Atrial Rate : 087 BPM P-R Int : 132 ms QRS Dur : 076 ms QT Int : 366 ms P-R-T Axes : 050 002 029 degrees QTc Int : 440 ms NORMAL SINUS RHYTHM CANNOT RULE OUT ANTERIOR INFARCT , AGE UNDETERMINED ABNORMAL ECG WHEN COMPARED WITH ECG OF 09-JUL-2017 19:28, NO SIGNIFICANT CHANGE WAS FOUND Confirmed by ANNA SUÁREZ, REMY ([id number]) on 07/23/2017 8:09:07 AM Referred By: Confirmed By:REMY CASTILLO MD
--- NOTE | 2017-07-23 08:15 | PN ---
Teaching Attending Note Name of Resident: Jesus Renee ATTENDING PHYSICIAN STATEMENT I saw and evaluated the patient. I reviewed the resident's note and discussed the case with the resident. I agree with the resident's findings and plan as documented. SUBJECTIVE: Patient is a 61yo female with hx of cancer with mets to her brain. OBJECTIVE: Vital Signs Temperature 97.8 F 07/23/17 06:48 Pulse Rate 70 07/23/17 06:48 Respiratory Rate 14 07/23/17 06:48 Blood Pressure 138/63 07/23/17 06:48 O2 Sat by Pulse Oximetry (%) 98 07/23/17 06:48 CBCD WBC 7.6 K/mm3 (4.0-10.0) D 07/23/17 06:15 RBC 3.89 M/mm3 (3.60-5.2) 07/23/17 06:15 Hgb 10.7 GM/dL (10.7-15.3) 07/23/17 06:15 Hct 33.5 % (32.4-45.2) 07/23/17 06:15 MCV 86.0 fl (80-96) 07/23/17 06:15 MCHC 32.0 g/dl (32.0-36.0) 07/23/17 06:15 RDW 21.0 % (11.6-15.6) H 07/23/17 06:15 Plt Count 324 K/MM3 (134-434) D 07/23/17 06:15 MPV 8.3 fl (7.5-11.1) 07/23/17 06:15 CMP Sodium 139 mmol/L (136-145) 07/22/17 17:40 Potassium 4.4 mmol/L (3.5-5.1) 07/22/17 17:40 Chloride 103 mmol/L (98-107) 07/22/17 17:40 Carbon Dioxide 27 mmol/L (21-32) 07/22/17 17:40 Anion Gap 9 (8-16) 07/22/17 17:40 BUN 15 mg/dL (7-18) 07/22/17 17:40 Creatinine 0.8 mg/dL (0.55-1.02) 07/22/17 17:40 Creat Clearance w eGFR > 60 (>60) 07/22/17 17:40 Random Glucose 74 mg/dL (74-106) 07/22/17 17:40 Calcium 9.2 mg/dL (8.5-10.1) 07/22/17 17:40 Total Bilirubin 0.4 mg/dL (0.2-1.0) 07/22/17 17:40 AST 37 U/L (15-37) 07/22/17 17:40 ALT 21 U/L (12-78) 07/22/17 17:40 Alkaline Phosphatase 181 U/L (45-117) H 07/22/17 17:40 Total Protein 7.3 g/dl (6.4-8.2) 07/22/17 17:40 Albumin 3.4 g/dl (3.4-5.0) 07/22/17 17:40 CARDIAC ENZYMES Creatine Kinase 55 IU/L (26-192) 07/22/17 17:40 Troponin I < 0.02 ng/ml (0.00-0.05) 07/22/17 17:40 Current Medications Generic Name Dose Route Start Last Admin Trade Name [place] PRN Reason Stop Dose Admin Atorvastatin Calcium 10 mg 07/22/17 22:00 07/22/17 22:53 Lipitor - PO 10 mg HS DIAN Administration Dexamethasone Sodium Phosphate 4 mg 07/22/17 21:00 07/23/17 03:05 Decadron Injection - IVPUSH 4 mg Q6H-IV DIAN Administration Enalapril Maleate 20 mg 07/23/17 10:00 Vasotec - PO DAILY [facility] Sodium Chloride 1,000 mls @ 42 mls/hr 07/22/17 14:15 07/22/17 15:00 Normal Saline - IV 42 mls/hr ASDIR DIAN Administration Insulin Aspart 1 vial 07/22/17 22:00 07/23/17 07:16 Novolog Vial Sliding Scale - SQ Not Given ACHS [facility] Protocol Levetiracetam 500 mg 07/22/17 22:00 07/22/17 21:58 Keppra Injection - IVPB Not Given BID [facility] Levothyroxine Sodium 150 mcg 07/23/17 07:00 Synthroid - PO DAILY@0700 [facility] Home Medications Medication Instructions Recorded Enalapril Maleate [Vasotec] 20 mg PO DAILY 12/24/16 Levothyroxine [Synthroid -] 150 mcg PO DAILY 12/24/16 Simvastatin [Zocor] 10 mg PO HS 07/22/17 CT HEAD- 1.8X1.8X1.5 cm rounded hyperdense lesion in r. frontal region w. edema , regional mass effect. Prescense of hyperstosis in adjacent calvarium suggests extra- axial mass such as meningioma. MRI BRAIN w CON: Enhancing lesions within bilateral hemispheres and L. Cerebellum measuring upo 1.9X1.8 cm. Edema surrounding lesions most prominant in R. frontal lobe extending into precentral gyrus, with regional sulcal effacement. No midline shift or herniation ASSESSMENT AND PLAN: Patient is a 61 yo F with hx. of metastatic colon ca to lungs and pelvis, with 2 large ventral hernia, htn, and hypothyriodism who presents with slurred speech, was found to have brain mass. # Metastatic Brain Lesions presented with seizures that started 2 days ago as per her family, MRI Brain reviewed , s/p Dexamethsone 10mg x 1 then 4mg Iv q6h as per neurosurgery. Continue Keppra seizure Ppx 500mg pobid . Neuro sx. consult appreciated Dr.Tom Hernandez. Onc./neuro consults appreciated. # Metastatic Colon ca w mets to adrenal, pelvis, lung, on FOLFIRI p/w focal motor seizures secondary to new brain mets (4), largest 1.9cm, edema and mass effect. Started on decadron and keppra. As per Rtx oncologist once the seizures are controlled, she will be a candidate for outpatient Gamma knife radiosurgery. # Right Shoulder Pain improving # Hx of Hypothyriodism continue Synthriod # HTN continue home meds Dvt Ppx: SCDS
[2017-07-23 08:19] LABS: CHLORIDE 104 mmol/L (98-107); POTASSIUM 4.6 mmol/L (3.5-5.1); SODIUM 139 mmol/L (136-145)
[2017-07-23 08:27] LABS: ALK PHOS 171 U/L (45-117); ANION GAP 10 (8-16); BILIRUBIN,TOTAL 0.5 mg/dL (0.2-1.0); BLOOD UREA NITROGEN 14 mg/dL (7-18); CALCIUM 9.1 mg/dL (8.5-10.1); CO2 25 mmol/L (21-32); CREATININE 0.7 mg/dL (0.55-1.02); GLUCOSE,RANDOM 123 mg/dL (74-106); MAGNESIUM 2.2 mg/dL (1.8-2.4); PHOSPHOROUS 4.7 mg/dL (2.5-4.9); SGOT/AST 28 U/L (15-37); SGPT/ALT 20 U/L (12-78); TOT PROT 6.9 g/dl (6.4-8.2)
--- NOTE | 2017-07-23 09:12 | CONS ---
DATE OF CONSULTATION: 07/23/2017 CHIEF COMPLAINT: New onset focal seizure activity with history of colon CA. HISTORY OF PRESENT ILLNESS: The patient is a 61-year-old female with history of colon adenocarcinoma initially diagnosed in early 2009 who underwent surgery in [place] initially in 2011. She subsequently received 2 rounds of chemotherapy. She also was found subsequently to have metastases to the lung, pelvis and adrenal gland. She had a ventral hernia repair in 2014 and last year had a biopsy of a pelvic wall mass which was found to be metastatic adenocarcinoma. She complains of a 1-week history of some word-finding difficulties. She also yesterday had some shaking episodes of the left arm with decreased control of the left arm and hand. She did not lose consciousness. She has no prodromes of headache, nausea, vomiting. She denies weakness or incontinence otherwise. She has returned to baseline. She denies any recent fever or chills or any other signs of infection. She had undergone pelvic radiation by report. PAST MEDICAL HISTORY: Significant for colon CA with metastases, hypertension and hypothyroidism. MEDICATIONS: Include Vasotec, Lipitor. ALLERGIES: CIPROFLOXACIN, LORATADINE, PENICILLIN and TYLENOL. SOCIAL HISTORY: She does not smoke or drink. She is retired. FAMILY HISTORY: Noncontributory. REVIEW OF SYSTEMS: Otherwise negative for other major cardiovascular, head and neck, pulmonary, gastrointestinal, genitourinary, endocrinological, neurological, psychological, gynecological or oncological problems except for the above. PHYSICAL EXAMINATION: General: She is awake and alert. She is sitting up on a stretcher in the emergency room. She is comfortable. Her son is at bedside. Vital Signs: Temperature is 97.8, blood pressure is 130/63, with pulse rate of 70, O2 saturation is 98% on room air. HEENT: Shows her to be normocephalic, atraumatic, anicteric. Neck: Supple with no carotid bruit or lymphadenopathy. Coronary: Demonstrated regular rhythm. Lungs: Clear bilaterally. Abdomen: Benign but obese. Extremities: Showed no obvious signs of DVT. Neurologic: She is awake and alert and oriented x3. She is Swedish speaking. Cranial nerve examination is intact II-XII. Motor examination shows 5/5 strength. She has a mild left upper extremity upward drift. Tone is normal. Sensory examination intact to light touch and vibratory sensation. Deep tendon reflexes are 1+ throughout. She has upgoing toe on the left foot. Cerebellar examination demonstrating normal coordination without tremor. She has intact [id number] examination. Gait is not tested for safety reasons. LABORATORY: Shows a white blood cell count initially of 13.8 and this morning 7.6, hemoglobin is 10.7 and platelet count is 324,000. INR is 1.06. Serum sodium is 139 and potassium is 4.4, BUN is 15 and creatinine is 0.8. LFTs are normal except for alkaline phosphatase 181. Troponin is less than 0.02. Albumin is 3.4. Urinalysis shows 1+ leukocyte esterase. There are 39 WBC and 63 RBC. Urine culture is pending. CT scan of the head demonstrated a right frontal opercular hyperdense lesion that is at the mcgregor-white junction with surrounding vasogenic edema. There is mild cortical mass effect locally. MRI of the brain demonstrated 4 intracranial enhancing lesions. The largest is over the right frontal operculum approximately 1.5 x 1.8 cm. There is associated vasogenic edema. There are some mild hemorrhagic changes within the tumor itself. There is a peripheral enhancing lesion in the left posterior occipital lobe approximately 7 mm in diameter; there is also a right inferomedial bitemporal lobe 7-mm round enhancing lesion; as well as a left medial cerebellar hemisphere 7-mm round enhancing lesion. There is no midline shift or hydrocephalus. IMPRESSION: 1. Stage 4 adenocarcinoma of the colon with metastases to lungs, adrenal, pelvic wall and the brain. 2. Hypertension. 3. Hypothyroidism. RECOMMENDATIONS: The patient presents with a focal motor seizure without loss of consciousness. She has returned to baseline. She also had a 1-week history of word-finding difficulty. She has 4 lesions intracranially, the largest in the right frontal operculum, and 3 other smaller 7-mm round lesions are noted in the right inferomedial frontal lobe, left posterior occipital lobe and the left medial cerebellum. Given that she did develop speech difficulty from a right frontal opercular region, she is likely right brain dominant. She is also most symptomatic from this lesion. Ideally, the lesion should be resected, but given the multiple lesions and the fact that the right frontal lesion is likely her dominant hemisphere given the associated speech difficulty, I would recommend Gamma Knife stereotactic radiosurgery for local control of the lesions over surgical debulking. The patient is still very functional and could be a good candidate for SRS. An alternative would be whole-brain radiation. Radiation Oncology consultation is recommended and I communicated with Dr. Amanda for the same. Oncology followup with Dr. Kaiser, the patient's treating oncologist, should also be pursued. I have also discussed the patient's condition with emergency room attending, Dr. Celeste Mullen, and asked her to give the patient 10 mg of dexamethasone to be followed by 4 mg q.6 hours. The patient should also be on Protonix for gastritis prophylaxis. The patient was given 1 g of Keppra for seizure control and should be continued on 500 mg twice a day. The above findings and recommendations were discussed with the patient's son and the patient at bedside in the emergency room. All questions were answered. The pros and cons of treatment approaches were discussed in detail. IGLESIA MAGANA M.D. [id number] MTDD
[2017-07-23] MEDS: LEVOTHYROXINE NA 150 MCG TABLET PO SCH (10:34)
[2017-07-23] MEDS: ENALAPRIL MALEATE 10 MG TABLET (FP) PO SCH (10:37)
[2017-07-23] MEDS: levETIRAcetam 500 MG/5 ML INJECTION VIAL IVPB SCH (10:38)
--- NOTE | 2017-07-23 13:57 | PN ---
Physical Exam: SUBJECTIVE: Patient seen and examined at bedside. Patient states that she has had several episodes 2-3 of 3 minute lip-smacking uncontrolled facial motions over the last week. Patient states that these episodes resolved spontaneously. OBJECTIVE: Vital Signs Period Temp Pulse Resp BP Sys/[place] Pulse Ox Last 24 Hr 97 F-97.8 F 70-80 14-20 138-152/63-73 97-98 GENERAL: The patient is awake, alert, and fully oriented, in no acute distress. NECK: Trachea midline, full range of motion, supple. LUNGS: Breath sounds equal, clear to auscultation bilaterally, no wheezes, no crackles, no accessory muscle use. HEART: Regular rate and rhythm, S1, S2 without murmur, rub or gallop. ABDOMEN: Obese, Soft, 2 ventral hernias noted on abdominal exam - none were tender to palpation, nondistended, normoactive bowel sounds, no guarding, no rebound, no hepatosplenomegaly. EXTREMITIES: 2+ pulses, warm, well-perfused, no edema. NEUROLOGICAL: Cranial nerves II through XII grossly intact. Normal speech, gait observed and is normal. reflexes 2+ bilaterally in upper and lower extremities. motor strength 5/5 bilaterally PSYCH: Normal mood, normal affect. SKIN: Warm, dry, normal turgor, no rashes or lesions noted Laboratory Results - last 24 hr 07/22/17 07/22/17 07/22/17 14:11 14:11 15:30 WBC 13.8 H D RBC 4.06 Hgb 11.3 D Hct 34.9 MCV 86.1 MCH 27.9 MCHC 32.5 RDW 21.0 H Plt Count No Result Required. MPV 8.4 Neutrophils % 77.9 D Lymphocytes % 11.6 D Monocytes % 6.8 Eosinophils % 3.1 Basophils % 0.6 Platelet Estimate Adequate Platelet Comment Polychromasia 1+ Anisocytosis 2+ Macrocytosis 1+ PT with INR 12.00 H INR 1.06 Sodium Cancelled Potassium Cancelled Chloride Cancelled Carbon Dioxide Cancelled Anion Gap Cancelled BUN Cancelled Creatinine Cancelled Creat Clearance w eGFR Cancelled POC Glucometer Random Glucose Cancelled Calcium Cancelled Phosphorus Magnesium Total Bilirubin Cancelled AST Cancelled ALT Cancelled Alkaline Phosphatase Cancelled Creatine Kinase Cancelled Troponin I Cancelled Total Protein Cancelled Albumin Cancelled Triglycerides Cancelled Cholesterol Cancelled Total LDL Cholesterol Cancelled HDL Cholesterol Cancelled Urine Color Urine Appearance Urine pH Ur Specific [place] Urine Protein Urine Glucose (UA) Urine Ketones Urine Blood Urine Nitrite Urine Bilirubin Urine Urobilinogen Ur Leukocyte Esterase Urine WBC (Auto) Urine RBC (Auto) Urine Bacteria Blood Type Antibody Screen 07/22/17 07/22/17 07/22/17 15:45 16:00 17:40 WBC RBC Hgb Hct MCV MCH MCHC RDW Plt Count MPV Neutrophils % Lymphocytes % Monocytes % Eosinophils % Basophils % Platelet Estimate Platelet Comment Polychromasia Anisocytosis Macrocytosis PT with INR INR Sodium 139 Potassium 4.4 Chloride 103 Carbon Dioxide 27 Anion Gap 9 BUN 15 Creatinine 0.8 Creat Clearance w eGFR > 60 POC Glucometer Random Glucose 74 Calcium 9.2 Phosphorus Magnesium Total Bilirubin 0.4 AST 37 ALT 21 Alkaline Phosphatase 181 H Creatine Kinase Troponin I Total Protein 7.3 Albumin 3.4 Triglycerides Cholesterol Total LDL Cholesterol HDL Cholesterol Urine Color Straw Urine Appearance Clear Urine pH 6.0 Ur Specific [place] 1.014 Urine Protein Negative Urine Glucose (UA) Negative Urine Ketones Negative Urine Blood 2+ H Urine Nitrite Negative Urine Bilirubin Negative Urine Urobilinogen Negative Ur Leukocyte Esterase 1+ H Urine WBC (Auto) 39 Urine RBC (Auto) 63 Urine Bacteria Few Blood Type A POSITIVE Antibody Screen Negative 07/22/17 07/22/17 07/23/17 17:40 21:35 06:15 WBC 7.6 D RBC 3.89 Hgb 10.7 Hct 33.5 MCV 86.0 MCH 27.5 MCHC 32.0 RDW 21.0 H Plt Count 324 D MPV 8.3 Neutrophils % 87.5 H Lymphocytes % 10.3 Monocytes % 1.9 L Eosinophils % 0.0 D Basophils % 0.3 Platelet Estimate Platelet Comment Polychromasia Anisocytosis Macrocytosis PT with INR INR Sodium Potassium Chloride Carbon Dioxide Anion Gap BUN Creatinine Creat Clearance w eGFR POC Glucometer 129.92030 Random Glucose Calcium Phosphorus Magnesium Total Bilirubin AST ALT Alkaline Phosphatase Creatine Kinase 55 Troponin I < 0.02 Total Protein Albumin Triglycerides Cholesterol Total LDL Cholesterol HDL Cholesterol Urine Color Urine Appearance Urine pH Ur Specific [place] Urine Protein Urine Glucose (UA) Urine Ketones Urine Blood Urine Nitrite Urine Bilirubin Urine Urobilinogen Ur Leukocyte Esterase Urine WBC (Auto) Urine RBC (Auto) Urine Bacteria Blood Type Antibody Screen 07/23/17 07/23/17 06:15 07:11 WBC RBC Hgb Hct MCV MCH MCHC RDW Plt Count MPV Neutrophils % Lymphocytes % Monocytes % Eosinophils % Basophils % Platelet Estimate Platelet Comment Polychromasia Anisocytosis Macrocytosis PT with INR INR Sodium 139 Potassium 4.6 Chloride 104 Carbon Dioxide 25 Anion Gap 10 BUN 14 Creatinine 0.7 Creat Clearance w eGFR > 60 POC Glucometer [phone] Random Glucose 123 H Calcium 9.1 Phosphorus 4.7 Magnesium 2.2 Total Bilirubin 0.5 D AST 28 ALT 20 Alkaline Phosphatase 171 H Creatine Kinase Troponin I Total Protein 6.9 Albumin 3.0 L Triglycerides Cholesterol Total LDL Cholesterol HDL Cholesterol Urine Color Urine Appearance Urine pH Ur Specific [place] Urine Protein Urine Glucose (UA) Urine Ketones Urine Blood Urine Nitrite Urine Bilirubin Urine Urobilinogen Ur Leukocyte Esterase Urine WBC (Auto) Urine RBC (Auto) Urine Bacteria Blood Type Antibody Screen Active Medications Generic Name Dose Route Start Last Admin Trade Name Freq PRN Reason Stop Dose Admin Atorvastatin Calcium 10 mg 07/22/17 22:00 07/22/17 22:53 Lipitor - PO 10 mg HS DIAN Administration Dexamethasone Sodium Phosphate 4 mg 07/22/17 21:00 07/23/17 10:35 Decadron Injection - IVPUSH 4 mg Q6H-IV DIAN Administration Enalapril Maleate 20 mg 07/23/17 10:00 07/23/17 10:37 Vasotec - PO 20 mg DAILY DIAN Administration Sodium Chloride 1,000 mls @ 42 mls/hr 07/22/17 14:15 07/22/17 15:00 Normal Saline - IV 42 mls/hr ASDIR DIAN Administration Insulin Aspart 1 vial 07/22/17 22:00 07/23/17 07:16 Novolog Vial Sliding Scale - SQ Not Given ACHS [facility] Protocol Levetiracetam 500 mg 07/23/17 22:00 Keppra - PO BID DIAN Levothyroxine Sodium 150 mcg 07/23/17 07:00 07/23/17 10:34 Synthroid - PO 150 mcg DAILY@0700 DIAN Administration IMAGING: BRAIN MRI: R frontal opercular 1.5 x 1.8 cm enhancing lesion with edema; punctate signal changes c/w intratumoral microhemorrhage, R medial temporal 7 mm ; L posterior occipital 8 mm, and L medial cerebellar 8 mm enhancing lesions c/ w additional mets ASSESSMENT/PLAN: Pt is a 61 y/o F w/ PMH metastatic CA who presented to ED with seizure-like symptoms of lip-smacking and inability to speak. Brain CT in ED revealed R frontal lesion with edema. #Metastatic Brain Tumor: from primary in colon -> lungs and brain likely causing facial symptoms as described -Decadron 4q6 per neurosurg -Keppra 500 BID started prophylactically for seizure -neurosurg consulted (Dr. Mike Hernandez) appreciated - may benefit from radiation - consult radiation oncology -neurology consulted (Dr. Houston) -Heme/onc consulted (Dr. Kaiser) -continue decadron -fall risk precautions #Metastatic CA: Stable -consult Dr. Kaiser -lung, LN, pelvis, colon -Right shoulder chemoport -chemo per Heme/Onc. Follows with [facility] #Diabetes: controlled -ISS -BGMs #Right shoulder pain: stable -R shoulder XR negative #Hypertension: stable -continue enalapril 20mg PO QD #Hypothyroid: stable -continue synthroid #FEN -continue NS at 42 -replete lytes in AM -can resume sodium controlled diet #Disposition -continue to monitor on telemetry Visit type - Emergency Visit Emergency Visit: Yes ED Registration Date: 07/22/17 Care time: The patient presented to the Emergency Department on the above date and was hospitalized for further evaluation of their emergent condition. - New Patient This patient is new to me today: Yes Date on this admission: 07/23/17 - Critical Care Critical Care patient: No
--- NOTE | 2017-07-23 15:46 | PN ---
Progress Note (short form) - Note Progress Note: Radiation Oncology full consult dictated 61yo woman w stage IV colon adenocarcinoma (kras/tp53 mutation positive, MSI low probability) w mets to adrenal, pelvis, lung, on FOLFIRI p/w focal motor seizures secondary to new brain mets (4), largest 1.9cm, edema and mass effect. Started on decadron and keppra. If seizures are controlled, she will be a candidate for outpatient Gamma knife radiosurgery. Cont neurologic mgt per Dr. Hernandez and med onc f/u by Dr. Kaiser.
--- NOTE | 2017-07-23 17:00 | CONS ---
DATE OF CONSULTATION: 07/23/2017 REFERRING PHYSICIAN: Sebas Hernandez M.D. REASON FOR CONSULTATION: Seizures secondary to brain metastases. HISTORY OF PRESENT ILLNESS: The patient is a 61-year-old woman who was diagnosed with colon cancer, treated with surgery in [place] in 2011. By reports, she had pelvic radiation therapy and chemotherapy. In 2017, she had pelvic recurrence and proceeded with palliative chemotherapy. She received FOLFIRI most recently under Dr. Kaiser. She had a repeat CT of the abdomen and pelvis earlier this month which showed right adrenal metastases, left pelvic mass, and bilateral lung mets. A few days prior to admission, she had word finding difficulties and involuntary facial movements as well as left extremity tremor. She was brought to the emergency room where CT of the head showed a right frontal mass with edema associated with mass effect. MRI of the brain with contrast demonstrated a 1.9 cm enhancing lesion in the right frontal operculum with surrounding vasogenic edema causing focal effacement and flattening of the right lateral ventricle. In addition there were 3 smaller sub-centimeter lesions in the left occipital lobe, left cerebellar hemisphere, and right temporal lobe with mild edema. There was no midline shift or herniation, and no hydrocephalus. She has been loaded with Decadron and Keppra. She was seen by Dr. Hernandez who did not feel she is a good neurosurgical candidate. He has recommended radiosurgery. Patient denies headache, nausea, vomiting, loss of consciousness, bowel or bladder incontinence. PAST MEDICAL HISTORY: Anemia, hypertension, hypothyroidism, ventral hernia status post repair, right chest wall Mediport placement, colectomy, cholecystectomy, hysterectomy with oophorectomy. PAST SURGICAL HISTORY: As above. ALLERGIES: TYLENOL, PENICILLIN, CLARITIN, CIPROFLOXACIN. CURRENT MEDICATIONS: Decadron, Vasotec, Keppra, Lipitor, insulin sliding scale, Synthroid. SOCIAL HISTORY: She was born in [place]. She is an ex-smoker, does not consume alcohol. FAMILY HISTORY: Father had leukemia. REVIEW OF SYSTEMS: Prior radiotherapy and chemotherapy as per the chart. PHYSICAL EXAMINATION: General: She appears well, nourished, in no acute distress. Vital Signs: Temperature 97.8, blood pressure 138/63, pulse 70, respiratory rate 14, FiO2 98% room air. HEENT: Normocephalic, atraumatic. Moist mucous membranes. Anicteric sclerae. Clear oral cavity. Neck: No mass or adenopathy. Chest: Clear bilaterally. No axillary adenopathy. Cardiovascular: Regular. Right Mediport. Abdomen: Soft, nontender. Well healed surgical incisions. Extremities: No significant edema. Neurologic: Alert and oriented. No facial twitching. No aphasia. Cranial nerves 2-12 are intact. No sensory, motor deficits. Gait was not tested. RADIOLOGIC DATA: See HPI. PATHOLOGIC DATA: On April 03, 2017, [facility], left pelvic sidewall mass biopsy consistent with adenocarcinoma, MSI low probability, KRAS mutation positive, TP53 mutation positive. IMPRESSION: A 61-year-old woman with stage IV colon adenocarcinoma with metastases to the adrenal, pelvis, lung, and brain. She presents with seizures secondary to probably the largest intracranial metastasis in the right frontal lobe. She was seen by Dr. Hernandez, who does not recommend surgery. I agree that she would be a candidate for stereotactic radiosurgery to control her brain metastases if her seizures are controlled. This will also minimize interruption of her ongoing systemic therapy which is likely an important part of her treatment given extensive systemic disease. Whole brain radiation therapy will be reserved for refractory disease, if seizures cannot be well controlled, or performance status declines. The patient asked me to speak with her son, and I left a message at the number she provided. We will wait to hear from her family. PLAN: Continue current neurologic management as per neurosurgery. She will need followup by medical oncology for her chemotherapy. Gamma knife radiosurgery will be arranged when she is discharged. Thank you for allowing me to participate in the care of your patient. CARLA JEAN-BAPTISTE M.D. JESSICA/[id number] MTDD
--- NOTE | 2017-07-23 17:27 | PN ---
Progress Note (short form) - Note Progress Note: Oncology Note: Patient with metastatic CRC on FOLFIRI comes with new onset seizures, found to have brain mets Pt seen and examined with RN who speaks bhutanese. Pt feels better now. Still feels her speech is slow. O/E: general: NAD, AAOx3 HEENT: NCAT Cor: RRR Resp: CTA b/l Abd: +Hernia extre: no CCE Temp Pulse Resp BP Pulse Ox 98 F 76 20 129/78 98 07/23/17 15:30 07/23/17 15:30 07/23/17 15:30 07/23/17 15:30 07/23/17 06:48 CBC, BMP 07/23/17 06:15 07/23/17 06:15 Current Medications Generic Name Dose Route Start Last Admin Trade Name Freq PRN Reason Stop Dose Admin Atorvastatin Calcium 10 mg 07/22/17 22:00 07/22/17 22:53 Lipitor - PO 10 mg HS DIAN Administration Dexamethasone Sodium Phosphate 4 mg 07/22/17 21:00 07/23/17 15:53 Decadron Injection - IVPUSH 4 mg Q6H-IV DIAN Administration Enalapril Maleate 20 mg 07/23/17 10:00 07/23/17 10:37 Vasotec - PO 20 mg DAILY DIAN Administration Sodium Chloride 1,000 mls @ 42 mls/hr 07/22/17 14:15 07/22/17 15:00 Normal Saline - IV 42 mls/hr ASDIR DIAN Administration Insulin Aspart 1 vial 07/22/17 22:00 07/23/17 13:59 Novolog Vial Sliding Scale - SQ Not Given ACHS DIAN Protocol Levetiracetam 500 mg 07/23/17 22:00 Keppra - PO BID DIAN Levothyroxine Sodium 150 mcg 07/23/17 07:00 07/23/17 10:34 Synthroid - PO 150 mcg DAILY@0700 DIAN Administration Metastatic colon ca on FOLFIRI NEW onset Brain metastases appreciate NSG/Radonc consults as she had a seizure, c/w Keppra c.w dex at present dose with close monitoring of FSG/ PPI support. if stable, would need to be discharged for OP f/u so that brain mets could be treated and then systemic chemo to be administered aware of the admission d/w pt
[2017-07-23] MEDS: SODIUM CHLORIDE 1,000 ML IV SCH (20:00)
[2017-07-23] MEDS: levETIRAcetam 500 MG TABLET (FP) PO SCH (21:37)
[2017-07-23] MEDS: ATORVASTATIN CA 10 MG TABLET (FP) PO SCH (21:37)
[2017-07-24 00:24] VITALS: BMI 39.6
[2017-07-24] MEDS: DEXAMETHASONE SOD PHOSPHATE 4 MG/1 ML VIAL IVPUSH SCH (03:13)
[2017-07-24 03:17] VITALS: TEMP 97.4
[2017-07-24] MEDS: INSULIN SLIDING SCALE (NOVOLOG) 1 VIAL SQ SCH ×2 (06:33→11:17)
[2017-07-24] MEDS: LEVOTHYROXINE NA 150 MCG TABLET PO SCH (06:34)
[2017-07-24 07:16] VITALS: BP 143/72; PULSE 72
--- NOTE | 2017-07-24 08:39 | PN ---
Progress Note (short form) - Note Progress Note: NEUROSURGERY Denies any H/A, N/V, weakness or incontinence. Neck pain radiating to R shoulder, arm, forearm and hand PE: AF, VSS HEENT- NC/AT, Neck- supple, no bruit; Cor- RRR; Lungs- CTA B; Abd- benign, obese , incisions healed; Ext- no sign of DVT Speech generally fluent in [place]an; no word finding difficulty, oriented x3 CN- intact II-XII; Motor- 5/5 with minimal L UE upwards drift; Sensation- intact LT, vibration; DTR, L toe upgoing; Cerebellar- intact FTN B; Gait stable Head CT- R frontal GW junction hyperdense lesion with vasogenic edema and mild mass effect MRI w/ and w/o- R frontal opercular 1.5 x 1.8 cm enhancing lesion with edema; punctate signal changes c/w intratumoral microhemorrhage, R medial temporal 7 mm ; L posterior occipital 8 mm, and L medial cerebellar 8 mm enhancing lesions c/ w additional mets Urine culture still pending 1) Stage IV colon CA with mets to brain (h/o mets to lungs, adrenal, pelvis); 2 ) R C6-7 radiculopathy Change Decadron to 4 mg q 6hrs PO Protonix for gastritis prophylaxis Keppra for sz prophylaxis Given multiple lesions and largest is over right frontal operculum (caused speech difficulty so likely dominant R hemisphere) and 3 other smaller mets, would favor gamma knife SRS over surgery or whole brain RT if logistically feasible; pros and cons discussed with pt and son previously and today with pt again Consulted RT - care/options d/w Dr Amanda Med oncology f/u
[2017-07-24] MEDS: levETIRAcetam 500 MG TABLET (FP) PO SCH (09:03)
[2017-07-24] MEDS: ENALAPRIL MALEATE 10 MG TABLET (FP) PO SCH (09:03)
[2017-07-24] MEDS ORDERED: DEXAMETHASONE 4 MG TABLET (FP) PO SCH (10:00)
--- NOTE | 2017-07-24 13:43 | DS ---
Physical Exam: SUBJECTIVE: Patient seen and examined at bedside. No acute overnight events. No current complaints. OBJECTIVE: Vital Signs Period Temp Pulse Resp BP Sys/[place] Pulse Ox Last 24 Hr 97.4 F-98.6 F 58-76 18-20 129-146/61-81 98-98 PHYSICAL EXAM GENERAL: The patient is awake, alert, and fully oriented, in no acute distress. NECK: Trachea midline, full range of motion, supple. LUNGS: Breath sounds equal, clear to auscultation bilaterally, no wheezes, no crackles, no accessory muscle use. HEART: Regular rate and rhythm, S1, S2 without murmur, rub or gallop. ABDOMEN: Obese, Soft, 2 ventral hernias noted on abdominal exam - none were tender to palpation, nondistended, normoactive bowel sounds, no guarding, no rebound, no hepatosplenomegaly. EXTREMITIES: 2+ pulses, warm, well-perfused, no edema. NEUROLOGICAL: Cranial nerves II through XII grossly intact. Normal speech, gait observed and is normal. reflexes 2+ bilaterally in upper and lower extremities. motor strength 5/5 bilaterally PSYCH: Normal mood, normal affect. SKIN: Warm, dry, normal turgor, no rashes or lesions noted LABS Laboratory Results - last 24 hr 07/23/17 07/24/17 07/24/17 21:27 06:04 11:16 POC Glucometer 182 162 118 HOSPITAL COURSE: Date of Admission: 07/22/17 Pt is a 61 y/o F w/ PMH metastatic CA who presented to ED with seizure-like symptoms of lip-smacking and inability to speak lasting 3-4 minutes. Patient had several of these episodes (2x/day) for several days before admission. She was recently discharged after an admission for abdominal pain 2/2 non- incarcerating ventral hernias. Patient had an MRI brain performed that revealed the following: BRAIN MRI: R frontal opercular 1.5 x 1.8 cm enhancing lesion with edema; punctate signal changes consistent with intratumoral microhemorrhage, R medial temporal 7 mm; L posterior occipital 8 mm, and L medial cerebellar 8 mm enhancing lesions consistent with additional mets Drs. Hernandez (neurosurgery), Dr. Amanda (radiation oncology), and Dr. Amaya ( oncology) agreed that the best plan would be to treat with possible gamma knife radiation as an outpatient. Patient was put on decadron 4mg Q6 and keppra 500 BID. She was discharged with instructions to continue these medications and follow with the aforementioned physicians for management likely with radiation and then systemic chemotherapy as an outpatient. Date of Discharge: 07/24/17 Minutes to complete discharge: 35 <Jesus Renee - Last Filed: 07/24/17 13:49> Physical Exam: Patient seen and examined with the resident. Patient has no longer seizure, patient is seen by neurologist and was started on Keppra 500mg po bid, and to continue Decadron as prescribed. Patient will follow up with neurologist for further EEG w/u , follow with RTx oncologist and and follow with hem/onc for further care and treatment. <Fredis Jacome - Last Filed: 07/24/17 17:14> Discharge Summary Reason For Visit: SEIZURE Current Active Problems Brain metastases (Acute) Seizure (Acute) Colon cancer (Chronic) - Home Medications Comprehensive Discharge Medication List: Ambulatory Orders Enalapril Maleate [Vasotec] 20 mg PO DAILY 12/24/16 Levothyroxine [Synthroid -] 150 mcg PO DAILY 12/24/16 Simvastatin [Zocor -] 10 mg PO HS 07/22/17 Dexamethasone [Decadron -] 4 mg PO Q6H #120 tablet 07/24/17 Levetiracetam [Keppra -] 500 mg PO BID #60 tablet 07/24/17 <Jesus Renee - Last Filed: 07/24/17 13:49> - Home Medications Comprehensive Discharge Medication List: Ambulatory Orders RX: Enalapril Maleate [Vasotec] 20 mg PO DAILY 12/24/16 RX: Levothyroxine [Synthroid -] 150 mcg PO DAILY 12/24/16 RX: Simvastatin [Zocor -] 10 mg PO HS 07/22/17 RX: Dexamethasone [Decadron -] 4 mg PO Q6H #120 tablet 07/24/17 RX: Levetiracetam [Keppra -] 500 mg PO BID #60 tablet 07/24/17 <Fredis Jacome - Last Filed: 07/24/17 17:14> Condition: Improved - Instructions Diet, Activity, Other Instructions: You were admitted to the hospital for the treatment of seizure-like activity. We identified lesions in your brain suggestive of metastatic disease. Medical Recommendations: -Continue taking dexamethasone 4mg every 6 hours as an outpatient - DO NOT STOP THIS ABRUPTLY -Continue keppra 500mg twice a day as an outpatient -Continue with your home medications -Make sure to follow up with Dr. Kaiser within 2 weeks of discharge -Make an appointment with the radiation oncologist Dr. Amanda within 2 weeks of discharge If you experience nausea, vomiting, fevers, chills, seizures, please return to the emergency room immediately. Referrals: Samuel Amanda MD [Staff Physician] - 2 Weeks Prieto Kaiser MD [Staff Physician] - 1 Month Disposition: HOME This patient is new to me today: No Emergency Visit: No Critical Care patient: No - Discharge Referral Referred to [facility] Med [facility] No <Jesus Renee - Last Filed: 07/24/17 13:49>
--- NOTE | 2017-07-24 15:31 | CONSULT ---
Consult - text type - Consultation Consultation Note: NEUROLOGY CONSULTATION is greatly appreciated: Events reviewed and discussed with Drs. Hernandez and Naa. Pt examined this AM with son at bedside who provides detailed history. This 61 yo RH woman with h/o HTN, Hypothyroidism is known to have metastatic colonioc Cancer. For 1 week she has had multiple, stereotyped episodes of staring and speech arrest lasting between 3-5 mins with speech gradualy improving over [address] and MRI of brain (reviewed) reveal a large right frontal cortical and left cerebellar masses as well as possible other, smaller, metastases. Episodes resolved after she was loaded on Keppra. EXAM: Awake, alert. Fluent in mongolian. Mild left facial. Gag OK. Full limon. Left drift and decreased left Nataliia. Brist reflexes. Left Babinski. Mild R FTN dystaxia and tdremor. Sensory Normal. IMP: Mild left cerebral and right cerebellar dysfunction most likely due to metastatic cancer. Complex partial seizures. SUGGEST: Continue decadron 4m PO q 6 hrs. Continue Levetiracetam 500 mg Q12 hrs. Radiation oncology consultation for out patient Rx. Out patient Neuro f/u and EEG. Thank you very much, Charles Houston MD
== END 2017-07-24 13:54 | disposition home or self-care (01) | DRG 54 ==
LOC: JER 13:25 → JERBED 19:46 → UNDOADMIN 19:46 → JERBED 23:01 → J4W 07-23 18:55
PROVIDERS: ADMIT Internal Medicine; ATTEND Internal Medicine
DX: C79.31 Secondary malignant neoplasm of brain (principal); G93.6 Cerebral edema; C18.9 Malignant neoplasm of colon, unspecified; C78.00 Secondary malignant neoplasm of unspecified lung; C79.89 Secondary malignant neoplasm of other specified sites; C79.70 Secondary malignant neoplasm of unspecified adrenal gland; G40.89 Other seizures; E03.9 Hypothyroidism, unspecified; I10 Essential (primary) hypertension; K64.8 Other hemorrhoids; K43.9 Ventral hernia without obstruction or gangrene; M25.511 Pain in right shoulder; E66.8 Other obesity; Z68.39 Body mass index [BMI] 39.0-39.9, adult; E11.9 Type 2 diabetes mellitus without complications
CPT/HCPCS: 36415; 70450-TC; 70552-TC; 71045-TC-FY; 73030-TC-RT-FY; 80053; 81003; 81015; 82550; 82962; 83735; 84100; 84484; 85025; 85610; 86850; 86900; 86901; 87086; 93005; 93010; 99285-25; J1100

== ENCOUNTER 2017-09-07 16:46 | Inpatient (IN) | payer MEDICARE, OTHER ==
--- NOTE | 2017-09-07 17:01 | PDOC ---
History of Present Illness - General Stated Complaint: WOUND INFECTION Time Seen by Provider: 09/07/17 17:01 - History of Present Illness Initial Comments: Patient is a 61 year old female with PMH of metastatic CA (newly discovered bran mets in 07/10, on daily steroids, last chemo 1 month prior, and radiation 1 week prior) and seizure history (on Keppra) presenting with worsenign back and left leg lesions over the past few weeks. She had sudden onset of facial lesions , back lesions, and left leg lesions which are pruritic and have worsened despite wound care at home. Denies fevers, chills, nausea, vomiting, diarrhea, or other symptoms. 09/07/17 17:05 Past History - Past Medical History Allergies/Adverse Reactions: Allergies Allergy/AdvReac Type Severity Reaction Status Date / Time acetaminophen [From Tylenol] Allergy Severe Verified 09/07/17 17:17 ciprofloxacin [From Cipro] Allergy Severe Verified 09/07/17 17:17 ciprofloxacin HCl Allergy Severe Verified 09/07/17 17:17 [From Cipro] loratadine [From Claritin] Allergy Severe Verified 09/07/17 17:17 Penicillins Allergy Severe Verified 09/07/17 17:17 Home Medications: Ambulatory Orders Enalapril Maleate [Vasotec] 20 mg PO DAILY 12/24/16 Levothyroxine [Synthroid -] 150 mcg PO DAILY 12/24/16 Simvastatin [Zocor -] 10 mg PO HS 07/22/17 Dexamethasone [Decadron -] 4 mg PO Q6H #120 tablet 07/24/17 levETIRAcetam [Keppra -] 500 mg PO BID #60 tablet 07/24/17 Anemia: No Asthma: No Cancer: Yes (lung, lumph nodes , pelvic, COLON) CVA: No COPD: No CHF: No DVT: No Dementia: No Diabetes: No GI Disorders: No Disorders: No HTN: Yes Hypercholesterolemia: No Liver Disease: No Seizures: No Thyroid Disease: Yes (HYPO) - Surgical History Abdominal Surgery: Yes (COLON CANCER 2011) Appendectomy: No Cardiac Surgery: No Cholecystectomy: Yes Lung Surgery: No Neurologic Surgery: No Orthopedic Surgery: No - Immunization History Immunization Up to Date: Yes - Suicide/Smoking/Psychosocial Hx Smoking History: Never smoked Hx Alcohol Use: No Drug/Substance Use Hx: No Substance Use Type: None Hx Substance Use Treatment: No Review of Systems - Review of Systems Constitutional: No: Chills, Diaphoresis, Fever, Loss of Appetite HEENTM: No: Blurred Vision Respiratory: No: Cough, Shortness of Breath Cardiac (ROS): No: Chest Pain, Irregular Heart Rate ABD/GI: No: Diarrhea, Vomiting : No: Burning, Dysuria, Discharge Musculoskeletal: Yes: Back Pain, Muscle Pain Integumentary: Yes: Lesions, Pruritus Neurological: No: Headache ED Treatment Course - LABORATORY CBC & Chemistry Diagram: 09/07/17 17:38 09/07/17 17:38 Medical Decision Making - Medical Decision Making 61 year likely immunocomrpomised female presenting with multipel cutaneous lesions in the setting of slightly elevated lactic acid but no elevated WBC. It' s possible that she cannot mount a WBC to infection due her chronic steroid usage , 1 month prior chemo, and recent radiation therapy. These cutaneous lesions aren't typical appearing decubitus ulcers and are concerning for malignancy vs. opportunistic infection. Will be admitted to medicine under Dr. Gonzalez. 09/07/17 19:53 *DC/Admit/Observation/Transfer Diagnosis at time of Disposition: Skin lesions, generalized - Discharge Dispostion Condition at time of disposition: Stable Admit: Yes - Referrals Referrals: Cora Mancia MD [Primary Care Provider] - - Patient Instructions - Post Discharge Activity
--- NOTE | 2017-09-07 17:19 | PDOC ---
Attending Attestation - Resident Resident Name: Levi Colbert - ED Attending Attestation I have performed the following: I have examined & evaluated the patient, The case was reviewed & discussed with the resident, I agree w/resident's findings & plan, Exceptions are as noted - HPI HPI: 09/07/17 17:08 61-year-old female brought in by ambulance from home after the nurse felt she was developing cellulitis from skin lesions she has had for 3 weeks -She is receiving home care for wounds -Dr. Prieto Kaiser is her oncologist and she is currently receiving radiation oncology for brain tumor. She had colon cancer initially but now she has metastases -Dr. Anthony Schaefer has seen her in the past for GI and she had a colonoscopy done by him at [facility] in 2017 09/07/17 17:24 09/07/17 18:31 - Physicial Exam PE: 09/07/17 18:31 61 yo presents with scattered raised skin lesions to her face,legs and back for 3 weeks following chemotherapy. recently the visiting nurse is concerned those on the back of her legs are getting secondarily infected head-no acute trauma,no scalp lacerations neck -supple face -scattered raised skin lesions on her face,no purulence ,no drainage eyes emily eomi lungs cta b/l cvs [id number] musculoskeletal scattered raised lesions on back,erythematous abd -nontender extremities- full range of motion,no red streaking neuro [id number] psych appropriate - Medical Decision Making 09/07/17 20:[address] Mclean agrees to admission IMP worsening dermatitis due to immunocompromised state
[2017-09-07 18:19] LABS: RBC 3.37 M/mm3 (3.60-5.2); WHITE BLOOD COUNT 6.9 K/mm3 (4.0-10.0)
[2017-09-07 18:35] LABS: INR 1.07 (0.82-1.09); PROTHROMBIN TIME (PATIENT) 12.1 SEC (9.98-11.88)
[2017-09-07 18:36] LABS: HEMATOCRIT 30.3 % (32.4-45.2); HEMOGLOBIN 10.2 GM/dL (10.7-15.3); MCH 30.3 pg (25.7-33.7); MCHC 33.7 g/dl (32.0-36.0); MEAN CELL VOLUME 89.9 fl (80-96); PLATELET COUNT 98 K/MM3 (134-434); RDW 18.9 % (11.6-15.6)
[2017-09-07 18:47] LABS: ALBUMIN 2.3 g/dl (3.4-5.0); ANION GAP 11 (8-16); BILIRUBIN,TOTAL 0.5 mg/dL (0.2-1.0); BLOOD UREA NITROGEN 25 mg/dL (7-18); CHLORIDE 101 mmol/L (98-107); CO2 26 mmol/L (21-32); CREATININE 0.9 mg/dL (0.55-1.02); POTASSIUM 4.1 mmol/L (3.5-5.1); SGOT/AST 20 U/L (15-37); SGPT/ALT 63 U/L (12-78); SODIUM 138 mmol/L (136-145); TOT PROT 5.4 g/dl (6.4-8.2)
[2017-09-07 18:48] LABS: ALK PHOS 148 U/L (45-117)
[2017-09-07 18:49] LABS: GLUCOSE,RANDOM 348 mg/dL (74-106)
[2017-09-07] MEDS ORDERED: SODIUM CHLORIDE 0.9% 500 ML INFUS.BAG IV ONE (19:07)
--- NOTE | 2017-09-07 19:33 | HP ---
CHIEF COMPLAINT: skin lesions x 3 weeks PCP: HISTORY OF PRESENT ILLNESS: 61 y/o F with PMH HTN, metastatic colon CA (to brain 07/10/17, lungs. Followed by Dr. Kaiser, on FOLFIRI chemo tx - leucovirin, fluorouracil, irinotecan. Last chemo 1 month ago, last radiation 1 wk ago), seizure hx (on Keppra), on dexamethasone taper 4mg currently, hypothyroidism, who presents to the ED with raised skin lesions over the past three weeks. As per pt's family, approximately three weeks ago, she noticed scattered ulcer-like skin lesions across the thoracic segment of her back. The lesions were pruritic, painful, surrounded by erythema and drained malodorous, yellow discharge when broken. As the weeks progressed, pt noticed the same lesions on her face, upper extremities , lower extremities, and buttocks. She itched the lesions so frequently that they bled. Pt has a wound care nurse that sees her daily for these lesions, and believed they were infected so she was sent to the ED. Her nurse was also concerned because her BG was in the 500's at home. Pt has had the same lesions on past admissions, however it appears that they have progressed since. During this time, pt also endorses chronic dry cough, low grade temperature (99.8F tmax ), as well as RUE pain "that feels like a shocking sensation running down her arm." She also describes a painful and heavy LLE. Otherwise, she denies recent sick contacts, allergens, GUERRERO, SOB, chest pain or pressure, or changes in urinary or bowel function. Family explains that pt has been more limited in physical action, and more bed- ridden since her diagnosis of brain mets in mid June. ER course was notable for: (1) thrombocytopenia 98k (2) BG 348 (3) Recent Travel: none PAST MEDICAL HISTORY: as above PAST SURGICAL HISTORY: colon surgery - family unable to describe further, hysterectomy, umbilical hernia, L, R inguinal hernia repairs, cholecystectomy Social History: Smoking: smoked "a few cigarettes" years ago - unable to quantify Alcohol: socially Drugs: denies Family History: mother - DM, father- HTN. multiple family members with heart dz , asthma, DM Allergies acetaminophen [From Tylenol] Allergy (Severe, Verified 09/07/17 17:17) THROAT PARALYZES ciprofloxacin [From Cipro] Allergy (Severe, Verified 09/07/17 17:17) SWELLING OF EYES AND MOUTH ciprofloxacin HCl [From Cipro] Allergy (Severe, Verified 09/07/17 17:17) SWELLING OF EYES AND MOUTH loratadine [From Claritin] Allergy (Severe, Verified 09/07/17 17:17) FACE GETS SWOLLEN Penicillins Allergy (Severe, Verified 09/07/17 17:17) SWELLING OF MY FACE AND HANDS HOME MEDICATIONS: Home Medications Medication Instructions Recorded Enalapril Maleate [Vasotec] 20 mg PO DAILY 12/24/16 Levothyroxine [Synthroid -] 150 mcg PO DAILY 12/24/16 Simvastatin [Zocor -] 10 mg PO HS 07/22/17 Dexamethasone [Decadron -] 4 mg PO Q6H #120 tablet 07/24/17 levETIRAcetam [Keppra -] 500 mg PO BID #60 tablet 07/24/17 REVIEW OF SYSTEMS CONSTITUTIONAL: +low grade fever Absent: fever, chills, diaphoresis, generalized weakness, malaise, loss of appetite, weight change HEENT: Absent: rhinorrhea, nasal congestion, throat pain, throat swelling, difficulty swallowing, mouth swelling, ear pain, eye pain, visual changes CARDIOVASCULAR: Absent: chest pain, syncope, palpitations, irregular heart rate, lightheadedness , peripheral edema RESPIRATORY: +dry cough Absent: cough, shortness of breath, dyspnea with exertion, orthopnea, wheezing, stridor, hemoptysis GASTROINTESTINAL: Absent: abdominal pain, abdominal distension, nausea, vomiting, diarrhea, constipation, melena, hematochezia GENITOURINARY: Absent: dysuria, frequency, urgency, hesitancy, hematuria, flank pain, genital pain MUSCULOSKELETAL: +LLE pain Absent: myalgia, arthralgia, joint swelling, back pain, neck pain SKIN: +excoriated lesions Absent: rash, itching, pallor HEMATOLOGIC/IMMUNOLOGIC: Absent: easy bleeding, easy bruising, lymphadenopathy, frequent infections ENDOCRINE: Absent: unexplained weight gain, unexplained weight loss, heat intolerance, cold intolerance NEUROLOGIC: +RUE/R shoulder paresthesias Absent: headache, focal weakness or paresthesias, dizziness, unsteady gait, seizure, mental status changes, bladder or bowel incontinence PSYCHIATRIC: Absent: anxiety, depression, suicidal or homicidal ideation, hallucinations. PHYSICAL EXAMINATION Vital Signs 09/07/17 17:17 Temperature 97.4 F L Pulse Rate 80 Respiratory 18 Rate Blood Pressure 133/71 O2 Sat by Pulse 98 Oximetry (%) GENERAL: Awake, alert, and fully oriented. appears uncomfortable, with dry cough. HEAD: +scattered bleeding, excorciated lesions on face -cheeks, forehead EYES: Pupils equal, round and reactive to light, extraocular movements intact, sclera anicteric, conjunctiva clear. EARS, NOSE, THROAT: Ears normal, nares patent, oropharynx clear without exudates. Moist mucous membranes. NECK: Normal range of motion, supple CHEST: +chemoport R anterior chest - intact LUNGS: Breath sounds equal, clear to auscultation bilaterally. No wheezes, and no crackles. No accessory muscle use. Poor inspiratory effort HEART: Regular rate and rhythm, normal S1 and S2 without murmur, rub or gallop. ABDOMEN: Soft, obese, nontender, not distended, normoactive bowel sounds, no guarding, no rebound, no masses. MUSCULOSKELETAL: +TTP R shoulder with limited active and passive ROM. LOWER EXTREMITIES: 2+ posterior tibial pulses, warm, well-perfused. +LLE diffusely TTP NEUROLOGICAL: Cranial nerves II-XII intact. SKIN: +scattered excoriated lesions - across thoracic portion of back, buttocks , posterior thighs, upper extremities Laboratory Results 09/07/17 09/07/17 09/07/17 17:38 17:38 17:38 WBC 6.9 RBC 3.37 L Hgb 10.2 L Hct 30.3 L MCV 89.9 MCH 30.3 D MCHC 33.7 RDW 18.9 H Plt Count 98 L D MPV 8.0 PT with INR 12.10 H INR 1.07 Sodium 138 Potassium 4.1 Chloride 101 Carbon Dioxide 26 Anion Gap 11 BUN 25 H Creatinine 0.9 Creat Clearance w eGFR > 60 Random Glucose 348 H* Lactic Acid Calcium 8.0 L Total Bilirubin 0.5 AST 20 ALT 63 Alkaline Phosphatase 148 H Total Protein 5.4 L Albumin 2.3 L 09/07/17 17:38 Random Glucose Lactic Acid 2.9 H* Calcium Radio -CXR: without evidence of infiltrates. official read pending Micro -Wound cx - pending ASSESSMENT/PLAN: 61 y/o F with PMH HTN, metastatic colon CA (to brain 07/10/17, lungs. Followed by Dr. Kaiser, on FOLFIRI chemo tx - leucovirin, fluorouracil, irinotecan. Last chemo 1 month ago, last radiation 1 wk ago), seizure hx (on Keppra), on dexamethasone taper 4mg currently, hypothyroidism, who presents to the ED with raised skin lesions over the past three weeks. Pt admitted to med-surg for dermatitis, skin lesions possibly 2/2 chemo side effect. #Dermatitis, skin lesions possibly 2/2 chemo side effect -Pt currently not septic. without white count, current fever. +Lactic acid 2.9. However wounds represent potential source infection -scattered lesions, excoriated with yellow, malodorous d/c -Immunocompromised, on chemo. Will start pt on vanc 1.5g IVPB qd, aztreonam 1g IV q8h. Renally dosed -ID consult- Dr. Chang -Derm consult- Dr. Atkins -Heme onc consult- Dr. Kaiser -Will truong-cx. F/u blood cx, urine cx, wound cx -F/u repeat lactic acid - tomorrow 6AM #metastatic colon CA (to brain, lungs) -on FOLFIRI chemo tx - leucovorin, fluorouracil, irinotecan -last chemo 1 month ago, last radiation 1 wk ago -chemoport intact, without erythema -continue dexamethasone taper 4mg PO q6h -Heme onc consult - Dr. Kaiser #R/o DVT -Pt c/o LLE heaviness, pain. +TTP -F/u doppler LLE #RUE /R shoulder pain -F/u R shoulder x-ray #Hyperglycemia likely 2/2 steroids -BGM -ISS ACHS -F/u A1c #Seizure hx, with brain mets -Continue Keppra 500 mg BID #HTN- controlled -Continue enalapril 20mg PO qd #Hypothyroidism -Continue levothyroxine 150 mcg PO qd #F/E/N -Continue to monitor electrolytes -Diabetic, Na controlled diet #PPX SCD's #Dispo med-surg obs Visit type - Emergency Visit Emergency Visit: Yes ED Registration Date: 09/07/17 Care time: The patient presented to the Emergency Department on the above date and was hospitalized for further evaluation of their emergent condition. - New Patient This patient is new to me today: Yes Date on this admission: 09/08/17 - Critical Care Critical Care patient: No Hospitalist Screening - Colonoscopy Questionnaire Colonoscopy Questionnaire: Colonoscopy Questionnaire - Patient: 50 - 75 years old and never had a screening colonoscopy: Unknown History of colon or rectal polyps, or CA: Unknown History of IBD, Crohn's disease or UC: Unknown History of abdominal radiation therapy as a child: Unknown - Relative: 1 with colon or rectal CA, or polyps at age 60 or younger: Unknown Colon or rectal CA diagnosed at age 45 or younger: Unknown Multiple relatives with colon or rectal CA: Unknown - Outcome: Screening Result: Negative Screen
[2017-09-07] MEDS ORDERED: DEXAMETHASONE 4 MG TABLET (FP) PO STA (19:41)
[2017-09-07 19:42] LABS: ANISOCYTOSIS 1+
[2017-09-07 19:43] LABS: PLATELET ESTIMATE SLT DECREASE
--- NOTE | 2017-09-07 20:20 | PN ---
Teaching Attending Note Name of Resident: Eileen Otoole ATTENDING PHYSICIAN STATEMENT I saw and evaluated the patient. I reviewed the resident's note and discussed the case with the resident. I agree with the resident's findings and plan as documented. SUBJECTIVE: 61 F with Metastatic Colon Ca (lungs, brain, pelvis) S/P chemo FOLFIRI 4 wks ago , hemmoriods, ventral hernia, hypothyriodism who presents with skin pustules X 3 weeks duration. States rash started 1 week post chemo. As per family she was not around any sick contacts. No fevers or chills. No chest pain, pressure or shortness of breath. Family states some pustules were leaking a yellow drainage and has surrounding erythema. OBJECTIVE: Physical: VS: Vital Signs Period Temp Pulse Resp BP Sys/[place] Pulse Ox Last 24 Hr 97.4 F 80 18 133/71 98 GEN: NAD, Resting in bed, AA0X3 HEENT: NCAT, PERRL, Throat without erythema or exudates CARD: IRR S1, S2 RESP: CTAB ABD: BSx4, NTD to palpation EXT: - C/C/E CBCD WBC 6.9 K/mm3 (4.0-10.0) 09/07/17 17:38 RBC 3.37 M/mm3 (3.60-5.2) L 09/07/17 17:38 Hgb 10.2 GM/dL (10.7-15.3) L 09/07/17 17:38 Hct 30.3 % (32.4-45.2) L 09/07/17 17:38 MCV 89.9 fl (80-96) 09/07/17 17:38 MCHC 33.7 g/dl (32.0-36.0) 09/07/17 17:38 RDW 18.9 % (11.6-15.6) H 09/07/17 17:38 Plt Count 98 K/MM3 (134-434) L D 09/07/17 17:38 MPV 8.0 fl (7.5-11.1) 09/07/17 17:38 CMP Sodium 138 mmol/L (136-145) 09/07/17 17:38 Potassium 4.1 mmol/L (3.5-5.1) 09/07/17 17:38 Chloride 101 mmol/L (98-107) 09/07/17 17:38 Carbon Dioxide 26 mmol/L (21-32) 09/07/17 17:38 Anion Gap 11 (8-16) 09/07/17 17:38 BUN 25 mg/dL (7-18) H 09/07/17 17:38 Creatinine 0.9 mg/dL (0.55-1.02) 09/07/17 17:38 Creat Clearance w eGFR > 60 (>60) 09/07/17 17:38 Random Glucose 348 mg/dL (74-106) H* 09/07/17 17:38 Calcium 8.0 mg/dL (8.5-10.1) L 09/07/17 17:38 Total Bilirubin 0.5 mg/dL (0.2-1.0) 09/07/17 17:38 AST 20 U/L (15-37) 09/07/17 17:38 ALT 63 U/L (12-78) 09/07/17 17:38 Alkaline Phosphatase 148 U/L (45-117) H 09/07/17 17:38 Total Protein 5.4 g/dl (6.4-8.2) L 09/07/17 17:38 Albumin 2.3 g/dl (3.4-5.0) L 09/07/17 17:38 Ambulatory Orders Enalapril Maleate [Vasotec] 20 mg PO DAILY 12/24/16 Levothyroxine [Synthroid -] 150 mcg PO DAILY 12/24/16 Simvastatin [Zocor -] 10 mg PO HS 07/22/17 Dexamethasone [Decadron -] 4 mg PO Q6H #120 tablet 07/24/17 levETIRAcetam [Keppra -] 500 mg PO BID #60 tablet 07/24/17 ASSESSMENT AND PLAN: 61 F with Metastatic Colon Ca (lungs, brain, pelvis) S/P chemo FOLFIRI 4 wks ago , hemmoriods, ventral hernia, hypothyriodism who presents with cellultitis due to skin rash 1.) Cellulitis due to Skin Rash in Immunocompromised Pt. - Vanco/Aztronam - Wound/Blood Cx. - ID/Derm consult 2.) Metastatic Colon Ca W Brain/ lung/pelvis mets - Onc. Consult - Last Chemo 3 weeks ago - C/w Steroids - Keppra 3.) Hyperglycemia - Most likely due to steriod - Check HgbA1c - FS - BASIL 4.) LLE Edema - Duplex 5.) Dvt Ppx - SCDS Place in Obs Med-Sx
[2017-09-07] MEDS ORDERED: VANCOMYCIN 1,500 MG in DEXTROSE 5%-WATER - 500 ML IVPB ONE ×2 (21:15→21:45)
[2017-09-07] MEDS ORDERED: AZTREONAM 1 GM in DEXTROSE 5%-WATER - 50 ML IVPB ONE (22:00)
[2017-09-07] MEDS ORDERED: levETIRAcetam 500 MG TABLET (FP) PO ONE (22:05)
[2017-09-07] MEDS: levETIRAcetam 500 MG TABLET (FP) PO SCH (22:22)
[2017-09-07] MEDS ORDERED: INSULIN (NOVOLOG) ASPART 100 UNITS/ML 10ML VIAL ONE (22:25)
[2017-09-07] MEDS: INSULIN SLIDING SCALE (NOVOLOG) 1 VIAL SQ SCH (22:26)
[2017-09-08] MEDS: DEXAMETHASONE 4 MG TABLET (FP) PO SCH ×4 (00:42→17:52)
[2017-09-08] MEDS ORDERED: oxyCODONE HCL 5 MG TABLET PO ONE (01:01)
[2017-09-08 03:50] VITALS: BMI 38.6
[2017-09-08] MEDS: LEVOTHYROXINE NA 150 MCG TABLET PO SCH (06:07)
[2017-09-08] MEDS: INSULIN SLIDING SCALE (NOVOLOG) 1 VIAL SQ SCH ×4 (06:07→22:43)
[2017-09-08 06:44] LABS: HEMATOCRIT 26.5 % (32.4-45.2); HEMOGLOBIN 9.1 GM/dL (10.7-15.3); MCH 30.8 pg (25.7-33.7); MCHC 34.3 g/dl (32.0-36.0); MEAN CELL VOLUME 89.7 fl (80-96); MEAN PLT VOLUME 7.9 fl (7.5-11.1); PLATELET COUNT 79 K/MM3 (134-434); RBC 2.95 M/mm3 (3.60-5.2); RDW 18.7 % (11.6-15.6); WHITE BLOOD COUNT 5.7 K/mm3 (4.0-10.0)
[2017-09-08 07:13] LABS: ANION GAP 11 (8-16); BLOOD UREA NITROGEN 22 mg/dL (7-18); CALCIUM 8.2 mg/dL (8.5-10.1); CHLORIDE 101 mmol/L (98-107); CO2 24 mmol/L (21-32); CREATININE 0.5 mg/dL (0.55-1.02); GLUCOSE,RANDOM 241 mg/dL (74-106); PHOSPHOROUS 2.5 mg/dL (2.5-4.9); POTASSIUM 4.2 mmol/L (3.5-5.1); SODIUM 136 mmol/L (136-145)
--- NOTE | 2017-09-08 09:03 | PDOC ---
Patient Follow-up (Call Back) - Post ED Follow - Up Condition at time of discharge: Stable Reason for Call Back: Radiology (Lung nodule on cxr per radiology Pt has known metastatic cancer to lungs No need for call back at this time)
--- NOTE | 2017-09-08 09:58 | PN ---
Progress Note (short form) - Note Progress Note: ID consult dictated imp/reccd 61 year old female with metastatic colon cancer with port on steroids for brain mets-s/p RT no recent chemotherapy-since June now admitted with worsening skin lesions for the last 3 weeks no fevers or chills eating well from [place] no pets port site nontender a/p bacteremia skin lesions in 61 year old female on chemo and steroids vancomycin after port cultures are drawn echo derm for skin biopsy- sent for routine , fungal, viral and mycobacterial culture serum cryptococcal antigen urinary histo antigen viral culture of skin lesion sent may need port removed-vascular surgery consult overall prognosis is poor d/w hospitalist service d/w oncology Problem List - Problems (1) Bacteremia Code(s): R78.81 - BACTEREMIA (2) Skin lesions, generalized Code(s): L98.9 - DISORDER OF THE SKIN AND SUBCUTANEOUS TISSUE, UNSPECIFIED (3) Colon cancer metastasized to multiple sites Code(s): C18.9 - MALIGNANT NEOPLASM OF COLON, UNSPECIFIED
[2017-09-08] MEDS: ENALAPRIL MALEATE 10 MG TABLET (FP) PO SCH (10:00)
[2017-09-08] MEDS ORDERED: AZTREONAM 1 GM/10 ML SYRINGE (RESTRICTED TO ID) IVPUSH SCH (10:00)
[2017-09-08] MEDS ORDERED: VANCOMYCIN 1,500 MG in DEXTROSE 5%-WATER - 500 ML IVPB SCH (10:00)
[2017-09-08] MEDS: levETIRAcetam 500 MG TABLET (FP) PO SCH ×2 (10:00→22:43)
[2017-09-08 10:52] LABS: ANISOCYTOSIS 1+; PLATELET ESTIMATE DECREASED
--- NOTE | 2017-09-08 10:59 | EKG ---
Test Reason : Blood Pressure : / mmHG Vent. Rate : 073 BPM Atrial Rate : 073 BPM P-R Int : 142 ms QRS Dur : 078 ms QT Int : 352 ms P-R-T Axes : 052 011 025 degrees QTc Int : 387 ms NORMAL SINUS RHYTHM MINIMAL VOLTAGE CRITERIA FOR LVH, MAY BE NORMAL VARIANT BORDERLINE ECG WHEN COMPARED WITH ECG OF 22-JUL-2017 15:58, NO SIGNIFICANT CHANGE WAS FOUND Confirmed by MONISHA VILLA MD ([id number]) on 09/08/2017 10:59:15 AM Referred By: Confirmed By:MONISHA VILLA MD
[2017-09-08] MEDS: oxyCODONE HCL 5 MG TABLET PO PRN ×3 (11:27→23:32)
[2017-09-08] MEDS ORDERED: INSULIN (NOVOLOG) ASPART 100 UNITS/ML 10ML VIAL ONE (12:00)
--- NOTE | 2017-09-08 12:16 | PN ---
Teaching Attending Note Name of Resident: Burke Vuong ATTENDING PHYSICIAN STATEMENT I saw and evaluated the patient. I reviewed the resident's note and discussed the case with the resident. I agree with the resident's findings and plan as documented. SUBJECTIVE: Patient is comfortable. No new complaints. OBJECTIVE: Vital Signs Period Temp Pulse Resp BP Sys/G[place]am Pulse Ox Last 24 Hr 97.4 F-98.6 F 74-101 18-20 130-137/68-91 98-98 HEART: S1S2, RRR LUNGS: Clear ABDOMEN: Obese, soft, non-tender, non-distended, normal BS EXTREMITIES: No edema SKIN: Multiple lesions scattered over body - some crusted, some open, multiple excoriations, large cystic lesion on back with purulent drainage Laboratory Results - last 24 hr 09/07/17 09/07/17 09/07/17 17:38 17:38 17:38 WBC 6.9 RBC 3.37 L Hgb 10.2 L Hct 30.3 L MCV 89.9 MCH 30.3 D MCHC 33.7 RDW 18.9 H Plt Count 98 L D MPV 8.0 Total Counted 100 Neutrophils % No Result Required. Neutrophils % (Manual) 68.0 D Band Neutrophils % 24.0 Lymphocytes % No Result Required. Lymphocytes % (Manual) 6.0 L D Monocytes % (Manual) 2 L Eosinophils % (Manual) Basophils % (Manual) Myelocytes % (Man) Promyelocytes % (Man) Blast Cells % (Manual) Nucleated RBC % Metamyelocytes Differential Comment Man diff performed Platelet Estimate Slt decrease Platelet Comment Polychromasia 1+ Anisocytosis 1+ Microcytosis PT with INR 12.10 H INR 1.07 Sodium 138 Potassium 4.1 Chloride 101 Carbon Dioxide 26 Anion Gap 11 BUN 25 H Creatinine 0.9 Creat Clearance w eGFR > 60 POC Glucometer Random Glucose 348 H* Hemoglobin A1c % Lactic Acid Calcium 8.0 L Phosphorus Magnesium Total Bilirubin 0.5 AST 20 ALT 63 Alkaline Phosphatase 148 H Total Protein 5.4 L Albumin 2.3 L 09/07/17 09/07/17 09/08/17 17:38 22:21 04:39 WBC RBC Hgb Hct MCV MCH MCHC RDW Plt Count MPV Total Counted Neutrophils % Neutrophils % (Manual) Band Neutrophils % Lymphocytes % Lymphocytes % (Manual) Monocytes % (Manual) Eosinophils % (Manual) Basophils % (Manual) Myelocytes % (Man) Promyelocytes % (Man) Blast Cells % (Manual) Nucleated RBC % Metamyelocytes Differential Comment Platelet Estimate Platelet Comment Polychromasia Anisocytosis Microcytosis PT with INR INR Sodium Potassium Chloride Carbon Dioxide Anion Gap BUN Creatinine Creat Clearance w eGFR POC Glucometer [phone] Random Glucose Hemoglobin A1c % Lactic Acid 2.9 H* Calcium Phosphorus Magnesium Total Bilirubin AST ALT Alkaline Phosphatase Total Protein Albumin 09/08/17 09/08/17 09/08/17 06:00 06:00 06:00 WBC 5.7 RBC 2.95 L Hgb 9.1 L D Hct 26.5 L MCV 89.7 MCH 30.8 MCHC 34.3 RDW 18.7 H Plt Count 79 L MPV 7.9 Total Counted Neutrophils % No Result Required. Neutrophils % (Manual) 75.0 Band Neutrophils % 17.0 Lymphocytes % No Result Required. Lymphocytes % (Manual) 2.0 L D Monocytes % (Manual) 4 D Eosinophils % (Manual) 0.0 D Basophils % (Manual) 0.0 Myelocytes % (Man) 0 Promyelocytes % (Man) 0 Blast Cells % (Manual) 0 Nucleated RBC % 0 Metamyelocytes 1 D Differential Comment Platelet Estimate Decreased Platelet Comment Polychromasia Anisocytosis 1+ Microcytosis 1+ PT with INR INR Sodium 136 Potassium 4.2 Chloride 101 Carbon Dioxide 24 Anion Gap 11 BUN 22 H Creatinine 0.5 L Creat Clearance w eGFR POC Glucometer Random Glucose 241 H Hemoglobin A1c % Lactic Acid 1.1 Calcium 8.2 L Phosphorus 2.5 Magnesium 2.0 Total Bilirubin AST ALT Alkaline Phosphatase Total Protein Albumin 09/08/17 09/08/17 09/08/17 06:00 06:06 11:29 WBC RBC Hgb Hct MCV MCH MCHC RDW Plt Count MPV Total Counted Neutrophils % Neutrophils % (Manual) Band Neutrophils % Lymphocytes % Lymphocytes % (Manual) Monocytes % (Manual) Eosinophils % (Manual) Basophils % (Manual) Myelocytes % (Man) Promyelocytes % (Man) Blast Cells % (Manual) Nucleated RBC % Metamyelocytes Differential Comment Platelet Estimate Platelet Comment Polychromasia Anisocytosis Microcytosis PT with INR INR Sodium Potassium Chloride Carbon Dioxide Anion Gap BUN Creatinine Creat Clearance w eGFR POC Glucometer 210 343 Random Glucose Hemoglobin A1c % 8.9 H Lactic Acid Calcium Phosphorus Magnesium Total Bilirubin AST ALT Alkaline Phosphatase Total Protein Albumin Current Medications Generic Name Dose Route Start Last Admin Trade Name Ministerioq PRN Reason Stop Dose Admin Dexamethasone 4 mg 09/08/17 00:00 09/08/17 11:27 Decadron - PO 4 mg Q6HPO DIAN Administration Enalapril Maleate 20 mg 09/08/17 10:00 09/08/17 10:00 Vasotec - PO 20 mg DAILY DIAN Administration Vancomycin HCl 1,500 mg/ 500 mls @ 250 mls/hr 09/08/17 10:00 Dextrose IVPB BID [facility] Protocol Insulin Aspart 1 vial 09/07/17 22:00 09/08/17 12:04 Novolog Vial Sliding Scale - SQ 8 units ACHS DIAN Administration Protocol Levetiracetam 500 mg 09/07/17 22:00 09/08/17 10:00 Keppra - PO 500 mg BID DIAN Administration Levothyroxine Sodium 150 mcg 09/08/17 07:00 09/08/17 06:07 Synthroid - PO 150 mcg DAILY@0700 DIAN Administration Oxycodone HCl 5 mg 09/08/17 10:42 09/08/17 11:27 Roxicodone - PO 5 mg Q4H PRN Administration PAIN LEVEL 6-10 ASSESSMENT AND PLAN: This is a 61 year old woman with a history of HTN, colon cancer with metastases to brain and lungs, seizures, hypothyroidism who presented to the ED with worsening skin lesions. 1. Multiple skin lesions - ID consult appreciated - Awaiting dermatology consult 2. Bacteremia - Awaiting identification - Continue Vancomycin - Repeat blood cultures, obtain blood cultures from port which may need to be removed 3. 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 HTN - Continue Vasotec 7. Hypothyroidism - Continue Synthroid 8. Anemia, thrombocytopenia secondary to chemotherapy, cancer, infection - Montior hemoglobin, platelets
--- NOTE | 2017-09-08 12:44 | CONS ---
DATE OF CONSULTATION: REQUESTING PHYSICIAN: Hospitalist service HISTORY: This is a 61-year-old woman with metastatic colon cancer with metastasis to her pelvis, lungs, and brain. She most recently was found to have brain metastasis in June of this year. She now presents from home with a [id number] of worsening skin ulcerations, which she has on her face and her legs bilaterally. The son describes that they first start as ulcerations and then have become heaped up. They are mildly pruritic. She has had no change in her appetite, which is quite good. There has been no nausea or vomiting. She has had no fevers or chills. PAST MEDICAL HISTORY: Notable for anemia, hypertension, hypothyroidism, and colon cancer. PAST SURGICAL HISTORY: Significant for ventral hernia repair, right chest wall Mediport placement in [place], colectomy in [place]. Her original colon cancer was diagnosed in 2011. She is status post cholecystectomy and hysterectomy with oophorectomy. By report, she has had pelvic radiation and chemotherapy in the past. She was originally treated with surgery in 2011. In 2016, she had pelvic recurrence and received palliative chemotherapy. She is currently under the care of Dr. Kaiser and last got chemotherapy in May or June. She did not have chemotherapy in July. She recently was admitted in June when she was found to have the brain metastasis. At that time, she was evaluated by Neurosurgery who did not feel she was a good neurosurgical candidate. She was evaluated by Radiation Oncology for radiosurgery. CURRENT MEDICATIONS: As an outpatient include Keppra, Zocor, Synthroid, Vasotec , and Decadron. ALLERGIES: ACETAMINOPHEN, CIPROFLOXACIN, LORATADINE, and PENICILLIN. FAMILY HISTORY: Noncontributory. SOCIAL HISTORY: There is no history of any cigarette or substance use. She is originally from [place] and has been in this country the son says for 6 [place] There is no prior history of any tuberculosis. REVIEW OF SYSTEMS: He reports that her appetite has been good and she has been eating well. PHYSICAL EXAMINATION: General: She is awake and alert. Vital Signs: Temperature 98.1, weight 211, blood pressure 136/70, respiratory rate 18, pulse 74. HEENT: She is normocephalic. Her eyes are anicteric. Neck: Supple. She has no thrush. Lungs: Clear to auscultation. Heart: Regular rate and rhythm. Chest Wall: Port site is without any erythema or drainage that has been accessed. Abdomen: Soft and nontender. Extremities: Trace edema. Skin: She has multiple ulcerations. There is a heaped one on her left forehead about 1 cm in diameter. She has multiple ulcerations on her right cheek, on her right outer thigh as well as her left outer thigh and on her back. LABORATORIES: Notable for a white count 5.7, hemoglobin 9.1, platelets 79,000. BUN 22, creatinine 0.5, hemoglobin A1C is 8.9. Urinalysis has 1+ leukocytosis. That was from prior. Blood cultures now 4/4 blood culture bottles have gram-positive cocci in clusters. Duplex of her leg is negative for DVT. Chest x-ray is notable for nodules that were known in the past. In summary, this is a 61-year-old woman with gram-positive bacteremia and skin lesions in the setting of chemotherapy and steroids and a port. She received vancomycin 1 dose and Azactam last night. Would continue vancomycin after port cultures are drawn. It has been ordered. Would obtain an echocardiogram to rule out endocarditis. Dermatology for skin biopsy sent for routine fungal, viral, and mycobacterial culture. Would obtain a serum cryptococcal antigen, Histoplasma antigen. Viral culture of the skin lesion has been sent. She may need her port removed. The case was discussed with the Hospitalist service and with Oncology. BRIAN MARADIAGA M.D. [id number] MTDD
[2017-09-08] MEDS: VANCOMYCIN 1,500 MG in DEXTROSE 5%-WATER - 500 ML IVPB SCH ×2 (14:12→23:32)
--- NOTE | 2017-09-08 15:06 | CONSULT ---
Consult Consult Specialty:: Dermatology - History Source History Provided By: Family Member - Past Medical History ...: No - Alcohol/Substance Use Hx Alcohol Use: No - Smoking History Smoking history: Never smoked Have you smoked in the past 12 months: No Aproximately how many cigarettes per day: 0 Home Medications - Allergies Allergies/Adverse Reactions: Allergies Allergy/AdvReac Type Severity Reaction Status Date / Time acetaminophen [From Tylenol] Allergy Severe Verified 09/07/17 17:17 ciprofloxacin [From Cipro] Allergy Severe Verified 09/07/17 17:17 ciprofloxacin HCl Allergy Severe Verified 09/07/17 17:17 [From Cipro] loratadine [From Claritin] Allergy Severe Verified 09/07/17 17:17 Penicillins Allergy Severe Verified 09/07/17 17:17 - Home Medications Home Medications: Ambulatory Orders Enalapril Maleate [Vasotec] 20 mg PO DAILY 12/24/16 Levothyroxine [Synthroid -] 150 mcg PO DAILY 12/24/16 Simvastatin [Zocor -] 10 mg PO HS 07/22/17 Dexamethasone [Decadron -] 4 mg PO Q6H #120 tablet 07/24/17 levETIRAcetam [Keppra -] 500 mg PO BID #60 tablet 07/24/17 Physical Exam Vital Signs: Vital Signs Temperature 97.9 F 09/08/17 14:26 Pulse Rate 74 09/08/17 14:26 Respiratory Rate 20 09/08/17 14:26 Blood Pressure 125/64 09/08/17 14:26 O2 Sat by Pulse Oximetry (%) 98 09/08/17 09:00 Labs: CBC, BMP 09/08/17 06:00 09/08/17 06:00 Assessment/Plan Patient has been admitted for worstening skin lesions. History of Colon cancer with mets to brain at this time. Patient is being treated with steroids and radiation for brain mets. On exam she has scattered faruncles draining on buttock and mutiple excoriations on cheeks that are self induced due to pruritis . will follow up on cutures . Patient on Iv broad spectrum antibiotics.Please apply bactroban to open lesions after cleaning daily . cystic lesion on left side of forehead should be removed by surgeon when patient is stable
[2017-09-08] MEDS: LIDOCAINE 5% TOPICAL PATCH TP SCH (15:35)
--- NOTE | 2017-09-08 15:46 | PN ---
Physical Exam: SUBJECTIVE: Patient seen and examined No acute events overnight. Patient complaining of pain this morning. States lesions began 3 weeks ago and rapidly grew. OBJECTIVE: Vital Signs Period Temp Pulse Resp BP Sys/[place] Pulse Ox Last 24 Hr 97.4 F-98.6 F 74-101 18-20 125-137/64-91 98-98 GENERAL: Awake, alert, and fully oriented. +mild distress HEAD: +scattered bleeding, excorciated lesions on face EYES: Pupils equal, round and reactive to light, extraocular movements intact, sclera anicteric, conjunctiva clear. EARS, NOSE, THROAT: Ears normal, nares patent, oropharynx clear without exudates. Moist mucous membranes. NECK: Normal range of motion, supple CHEST: +chemoport R anterior chest - intact, clean dry LUNGS: Breath sounds equal, clear to auscultation bilaterally. No wheezes, and no crackles. No accessory muscle use. Poor inspiratory effort HEART: Regular rate and rhythm, normal S1 and S2 without murmur, rub or gallop. ABDOMEN: Soft, obese, nontender, not distended, normoactive bowel sounds, no guarding, no rebound, no masses. MUSCULOSKELETAL: +TTP R shoulder with limited active and passive ROM. LOWER EXTREMITIES: 2+ posterior tibial pulses, warm, well-perfused. +LLE diffusely TTP NEUROLOGICAL: Cranial nerves II-XII intact. SKIN: +scattered excoriated lesions - across thoracic portion of back, buttocks , posterior thighs, upper extremities Laboratory Results - last 24 hr 09/07/17 09/07/17 09/07/17 17:38 17:38 17:38 WBC 6.9 RBC 3.37 L Hgb 10.2 L Hct 30.3 L MCV 89.9 MCH 30.3 D MCHC 33.7 RDW 18.9 H Plt Count 98 L D MPV 8.0 Total Counted 100 Neutrophils % No Result Required. Neutrophils % (Manual) 68.0 D Band Neutrophils % 24.0 Lymphocytes % No Result Required. Lymphocytes % (Manual) 6.0 L D Monocytes % (Manual) 2 L Eosinophils % (Manual) Basophils % (Manual) Myelocytes % (Man) Promyelocytes % (Man) Blast Cells % (Manual) Nucleated RBC % Metamyelocytes Differential Comment Man diff performed Platelet Estimate Slt decrease Platelet Comment Polychromasia 1+ Anisocytosis 1+ Microcytosis PT with INR 12.10 H INR 1.07 Sodium 138 Potassium 4.1 Chloride 101 Carbon Dioxide 26 Anion Gap 11 BUN 25 H Creatinine 0.9 Creat Clearance w eGFR > 60 POC Glucometer Random Glucose 348 H* Hemoglobin A1c % Lactic Acid Calcium 8.0 L Phosphorus Magnesium Total Bilirubin 0.5 AST 20 ALT 63 Alkaline Phosphatase 148 H Total Protein 5.4 L Albumin 2.3 L 09/07/17 09/07/17 09/08/17 17:38 22:21 04:39 WBC RBC Hgb Hct MCV MCH MCHC RDW Plt Count MPV Total Counted Neutrophils % Neutrophils % (Manual) Band Neutrophils % Lymphocytes % Lymphocytes % (Manual) Monocytes % (Manual) Eosinophils % (Manual) Basophils % (Manual) Myelocytes % (Man) Promyelocytes % (Man) Blast Cells % (Manual) Nucleated RBC % Metamyelocytes Differential Comment Platelet Estimate Platelet Comment Polychromasia Anisocytosis Microcytosis PT with INR INR Sodium Potassium Chloride Carbon Dioxide Anion Gap BUN Creatinine Creat Clearance w eGFR POC Glucometer [phone] Random Glucose Hemoglobin A1c % Lactic Acid 2.9 H* Calcium Phosphorus Magnesium Total Bilirubin AST ALT Alkaline Phosphatase Total Protein Albumin 09/08/17 09/08/17 09/08/17 06:00 06:00 06:00 WBC 5.7 RBC 2.95 L Hgb 9.1 L D Hct 26.5 L MCV 89.7 MCH 30.8 MCHC 34.3 RDW 18.7 H Plt Count 79 L MPV 7.9 Total Counted Neutrophils % No Result Required. Neutrophils % (Manual) 75.0 Band Neutrophils % 17.0 Lymphocytes % No Result Required. Lymphocytes % (Manual) 2.0 L D Monocytes % (Manual) 4 D Eosinophils % (Manual) 0.0 D Basophils % (Manual) 0.0 Myelocytes % (Man) 0 Promyelocytes % (Man) 0 Blast Cells % (Manual) 0 Nucleated RBC % 0 Metamyelocytes 1 D Differential Comment Platelet Estimate Decreased Platelet Comment Polychromasia Anisocytosis 1+ Microcytosis 1+ PT with INR INR Sodium 136 Potassium 4.2 Chloride 101 Carbon Dioxide 24 Anion Gap 11 BUN 22 H Creatinine 0.5 L Creat Clearance w eGFR POC Glucometer Random Glucose 241 H Hemoglobin A1c % Lactic Acid 1.1 Calcium 8.2 L Phosphorus 2.5 Magnesium 2.0 Total Bilirubin AST ALT Alkaline Phosphatase Total Protein Albumin 09/08/17 09/08/17 09/08/17 06:00 06:06 11:29 WBC RBC Hgb Hct MCV MCH MCHC RDW Plt Count MPV Total Counted Neutrophils % Neutrophils % (Manual) Band Neutrophils % Lymphocytes % Lymphocytes % (Manual) Monocytes % (Manual) Eosinophils % (Manual) Basophils % (Manual) Myelocytes % (Man) Promyelocytes % (Man) Blast Cells % (Manual) Nucleated RBC % Metamyelocytes Differential Comment Platelet Estimate Platelet Comment Polychromasia Anisocytosis Microcytosis PT with INR INR Sodium Potassium Chloride Carbon Dioxide Anion Gap BUN Creatinine Creat Clearance w eGFR POC Glucometer 210 343 Random Glucose Hemoglobin A1c % 8.9 H Lactic Acid Calcium Phosphorus Magnesium Total Bilirubin AST ALT Alkaline Phosphatase Total Protein Albumin Active Medications Generic Name Dose Route Start Last Admin Trade Name Freq PRN Reason Stop Dose Admin Bacitracin 1 applic 09/08/17 22:00 Bacitracin - TP BID DIAN Dexamethasone 4 mg 09/08/17 00:00 09/08/17 11:27 Decadron - PO 4 mg Q6HPO DIAN Administration Enalapril Maleate 20 mg 09/08/17 10:00 09/08/17 10:00 Vasotec - PO 20 mg DAILY DIAN Administration Vancomycin HCl 1,500 mg/ 500 mls @ 250 mls/hr 09/08/17 10:00 09/08/17 14:12 Dextrose IVPB 250 mls/hr BID DIAN Administration Protocol Insulin Aspart 1 vial 09/07/17 22:00 09/08/17 12:04 Novolog Vial Sliding Scale - SQ 8 units ACHS DIAN Administration Protocol Levetiracetam 500 mg 09/07/17 22:00 09/08/17 10:00 Keppra - PO 500 mg BID DIAN Administration Levothyroxine Sodium 150 mcg 09/08/17 07:00 09/08/17 06:07 Synthroid - PO 150 mcg DAILY@0700 DIAN Administration Lidocaine 1 patch 09/08/17 15:15 09/08/17 15:35 Lidoderm Patch - TP 1 patch DAILY DIAN Administration Miscellaneous 1 each 09/08/17 22:00 Lidoderm Patch Removal MC DAILY@2200 DIAN Oxycodone HCl 5 mg 09/08/17 10:42 09/08/17 15:35 Roxicodone - PO 5 mg Q4H PRN Administration PAIN LEVEL 6-10 ASSESSMENT/PLAN: 61 y/o F with PMH HTN, metastatic colon CA (to brain 07/10/17, lungs. Followed by Dr. Kaiser, on FOLFIRI chemo tx - leucovirin, fluorouracil, irinotecan. Last chemo 1 month ago, last radiation 1 wk ago), seizure hx (on Keppra), on dexamethasone taper 4mg currently, hypothyroidism, who presents to the ED with raised skin lesions over the past three weeks. Pt admitted to med-surg for dermatitis, skin lesions possibly 2/2 chemo side effect. #Skin lesions -Currently not septic -Immunocompromised, on chemo and dexamethasone. -Vancomycin -Echocardiogram -Serum cryptococcal antigen, urine histoplamsa antigen, viral culture of skin lesions -Biopsy of lesion taken -Per ID, port may need to be removed given blood cx -ID consult- Dr. Chang -Derm consult- Dr. Atkins -Heme onc consult- Dr. Kaiser -F/u cultures, blood cultures positive -Lidocaine patch and oxycodone 5 q4h prn for pain control #metastatic colon CA (to brain, lungs) -on FOLFIRI chemo tx - leucovorin, fluorouracil, irinotecan -last chemo 1 month ago, last radiation 1 wk ago -chemoport intact, without erythema -continue dexamethasone taper 4mg PO q6h -Heme onc consult - Dr. Kaiser #Hyperglycemia likely 2/2 steroids -BGM -ISS ACHS -A1c 8.9 #Seizure hx, with brain mets -Continue Keppra 500 mg BID #HTN- controlled -Continue enalapril 20mg PO qd #Hypothyroidism -Continue levothyroxine 150 mcg PO qd #F/E/N -Continue to monitor electrolytes -Diabetic, Na controlled diet #PPX SCD's Visit type - Emergency Visit Emergency Visit: Yes ED Registration Date: 09/07/17 Care time: The patient presented to the Emergency Department on the above date and was hospitalized for further evaluation of their emergent condition. - New Patient This patient is new to me today: Yes Date on this admission: 09/08/17 - Critical Care Critical Care patient: No
[2017-09-08] MEDS ORDERED: LIDOCAINE HCL 1%, 10 MG/ML (20ML VIAL) ONE (16:28)
[2017-09-08] MEDS ORDERED: LIDOCAINE HCL 1%, 10 MG/ML (50 mL VIAL) SQ ONE (16:29)
--- NOTE | 2017-09-08 16:50 | CONSULT ---
Consult - text type - Consultation Consultation Note: Dermatology procedure note consent obtained for biopsy RBAT discussed with patient and her son. 1% lidocaine infiltrated into SQ tissue adjacent to ulcerated lesion. Shave biopsy taken and sent to lab for pathology. R/o bacterial ,fungal, atypical mycobacterium keep area clean with saline and apply bactroban bandage until healed Will follow
[2017-09-08] MEDS ORDERED: BACITRACIN 15 GM TUBE TOPICAL OINTMENT TP SCH (22:00)
[2017-09-08] MEDS ORDERED: LIDOCAINE PATCH REMOVAL MC SCH (22:00)
--- NOTE | 2017-09-08 22:32 | PN ---
Progress Note (short form) - Note Progress Note: Patient seen and examined Feels well Last Vital Signs Temp Pulse Resp BP Pulse Ox 97.7 F 67 18 114/55 98 09/08/17 17:49 09/08/17 17:49 09/08/17 17:49 09/08/17 17:49 09/08/17 09:00 Cor: RSR, No murmurs, No gallops Lungs: Clear to P&A Abd: Soft, Normal bowel sounds, No organomegaly Ext:No significant edema Abnormal Lab Results 09/08/17 09/08/17 09/08/17 06:00 06:00 06:00 RBC 2.95 L Hgb 9.1 L D Hct 26.5 L RDW 18.7 H Plt Count 79 L Lymphocytes % (Manual) 2.0 L D BUN 22 H Creatinine 0.5 L Random Glucose 241 H Hemoglobin A1c % 8.9 H Calcium 8.2 L Active Medications Generic Name Dose Route Start Last Admin Trade Name Freq PRN Reason Stop Dose Admin Bacitracin 1 applic 09/08/17 22:00 09/08/17 22:43 Bacitracin - TP 1 applic BID DIAN Administration Dexamethasone 4 mg 09/08/17 00:00 09/09/17 00:07 Decadron - PO 4 mg Q6HPO DIAN Administration Enalapril Maleate 20 mg 09/08/17 10:00 09/08/17 10:00 Vasotec - PO 20 mg DAILY DIAN Administration Vancomycin HCl 1,500 mg/ 500 mls @ 250 mls/hr 09/08/17 10:00 09/08/17 23:32 Dextrose IVPB 250 mls/hr BID DIAN Administration Protocol Insulin Aspart 1 vial 09/07/17 22:00 09/08/17 22:43 Novolog Vial Sliding Scale - SQ 8 units ACHS DIAN Administration Protocol Levetiracetam 500 mg 09/07/17 22:00 09/08/17 22:43 Keppra - PO 500 mg BID DIAN Administration Levothyroxine Sodium 150 mcg 09/08/17 07:00 09/08/17 06:07 Synthroid - PO 150 mcg DAILY@0700 DIAN Administration Lidocaine 1 patch 09/08/17 15:15 09/08/17 15:35 Lidoderm Patch - TP 1 patch DAILY DIAN Administration Miscellaneous 1 each 09/08/17 22:00 09/08/17 22:43 Lidoderm Patch Removal MC 1 each DAILY@2200 DIAN Administration Oxycodone HCl 5 mg 09/08/17 10:42 09/08/17 23:32 Roxicodone - PO 5 mg Q4H PRN Administration PAIN LEVEL 6-10 A/P 61 year old female with metastatic colon cancer with port on steroids for brain mets-s/p RT no recent chemotherapy-since June now admitted with worsening skin lesions for the last 3 weeks a/p bacteremia skin lesions in 61 year old female on chemo and steroids ? furunculosis On vancomycin derm to consider biopsy will request vacular consult to consider port removal based on cultures, clinical ocurse,iv access discussed with id ? taper decadron to 4mg Q 8h
[2017-09-08] MEDS: LIDOCAINE PATCH REMOVAL MC SCH (22:43)
[2017-09-09] MEDS: DEXAMETHASONE 4 MG TABLET (FP) PO SCH ×4 (00:07→22:26)
[2017-09-09] MEDS: INSULIN SLIDING SCALE (NOVOLOG) 1 VIAL SQ SCH ×5 (06:34→22:29)
[2017-09-09] MEDS: ENALAPRIL MALEATE 10 MG TABLET (FP) PO SCH ×2 (06:34)
[2017-09-09] MEDS: LEVOTHYROXINE NA 150 MCG TABLET PO SCH (06:34)
[2017-09-09 07:47] LABS: BASO % 0.1 % (0-2.0); HEMATOCRIT 26.9 % (32.4-45.2); HEMOGLOBIN 9.3 GM/dL (10.7-15.3); LYMPH % 7.1 % (8-40); MCH 30.5 pg (25.7-33.7); MCHC 34.6 g/dl (32.0-36.0); MEAN PLT VOLUME 7.8 fl (7.5-11.1); MONO % 3.8 % (3.8-10.2); PLATELET COUNT 78 K/MM3 (134-434); RBC 3.06 M/mm3 (3.60-5.2); RDW 18.6 % (11.6-15.6); WHITE BLOOD COUNT 6.6 K/mm3 (4.0-10.0)
[2017-09-09 08:17] LABS: ALK PHOS 137 U/L (45-117); ANION GAP 9 (8-16); BILIRUBIN,TOTAL 0.4 mg/dL (0.2-1.0); BLOOD UREA NITROGEN 26 mg/dL (7-18); CALCIUM 8.1 mg/dL (8.5-10.1); CHLORIDE 96 mmol/L (98-107); CO2 25 mmol/L (21-32); CREATININE 0.5 mg/dL (0.55-1.02); GLUCOSE,RANDOM 294 mg/dL (74-106); MAGNESIUM 2.1 mg/dL (1.8-2.4); PHOSPHOROUS 2.7 mg/dL (2.5-4.9); POTASSIUM 4.4 mmol/L (3.5-5.1); SGOT/AST 13 U/L (15-37); SGPT/ALT 56 U/L (12-78); SODIUM 130 mmol/L (136-145); TOT PROT 5.2 g/dl (6.4-8.2)
--- NOTE | 2017-09-09 08:49 | PN ---
Progress Note (short form) - Note Progress Note: no complaints alert Vital Signs Period Temp Pulse Resp BP Sys/[place] Pulse Ox Last 24 Hr 97.7 F-98.3 F 63-74 18-20 114-174/55-92 97-98 cor-rrr lungs clear abd soft,nt ext no edema skin lesions unchanged- some ulcer, some pustules, some verrucous port site nontender CBC, BMP 09/09/17 06:00 09/09/17 06:00 Microbiology 09/08/17 11:25 Blood - Sakshi Cath Blood Culture - Preliminary Pending Organism 09/07/17 Unknown Back Gram Stain - Final 09/08/17 11:18 Serum Cryptococcal Antigen - Preliminary 09/08/17 11:00 Wound Viral Culture - Preliminary 09/07/17 17:38 Blood - Peripheral Venous Blood Culture - Preliminary Pending Organism 09/07/17 17:38 Blood - Peripheral Venous Blood Culture - Preliminary Pending Organism a/p bacteremia-gram positive-port culture now postive as well will d/w oncology, apparently access is a problem, vascular to see will need port out and another access placed for antiibotics as peripheral access is a problem echo TTE- no vegetation seen continue vancomycin repeat blood cultures follow up sensitivities pen allergy noted- skin lesions in 61 year old female on chemo and steroids-felt to have furuncles by derm, shave biopsy done and pending metastatic colon cancer thrombocytopenia- suspect secondary to infection overall prognosis is poor Problem List - Problems (1) Bacteremia Code(s): R78.81 - BACTEREMIA (2) Skin lesions, generalized Code(s): L98.9 - DISORDER OF THE SKIN AND SUBCUTANEOUS TISSUE, UNSPECIFIED (3) Colon cancer metastasized to multiple sites Code(s): C18.9 - MALIGNANT NEOPLASM OF COLON, UNSPECIFIED
[2017-09-09] MEDS ORDERED: PT OWN MED DRAWER 7, Y5N ONE ×2 (09:11→15:52)
[2017-09-09] MEDS: LIDOCAINE 5% TOPICAL PATCH TP SCH (09:14)
[2017-09-09] MEDS: levETIRAcetam 500 MG TABLET (FP) PO SCH ×2 (09:15→22:26)
[2017-09-09] MEDS: VANCOMYCIN 1,500 MG in DEXTROSE 5%-WATER - 500 ML IVPB SCH (10:15)
[2017-09-09] MEDS: INSULIN (NOVOLOG) ASPART 100 UNITS/ML 10ML VIAL SQ ONE ×3 (11:45→14:57)
[2017-09-09] MEDS: MUPIROCIN CA 2% TOPICAL CREAM 15 GM TUBE TP SCH ×2 (14:58→22:28)
[2017-09-09 15:34] LABS: ANION GAP 13 (8-16); BLOOD UREA NITROGEN 27 mg/dL (7-18); CHLORIDE 93 mmol/L (98-107); CO2 23 mmol/L (21-32); CREATININE 0.7 mg/dL (0.55-1.02); POTASSIUM 4.3 mmol/L (3.5-5.1); SODIUM 129 mmol/L (136-145)
[2017-09-09 15:38] LABS: GLUCOSE,RANDOM 434 mg/dL (74-106)
--- NOTE | 2017-09-09 16:26 | PN ---
Physical Exam: SUBJECTIVE: Patient seen and examined No acute events overnight. Patient is asymptomatic this morning. Denies fever, chills. OBJECTIVE: Vital Signs Period Temp Pulse Resp BP Sys/[place] Pulse Ox Last 24 Hr 97.7 F-98.3 F 63-70 18-18 114-174/55-92 97 GENERAL: Awake, alert, and fully oriented. +mild distress HEAD: +scattered bleeding, excorciated lesions on face EYES: Pupils equal, round and reactive to light, extraocular movements intact, sclera anicteric, conjunctiva clear. EARS, NOSE, THROAT: Ears normal, nares patent, oropharynx clear without exudates. Moist mucous membranes. NECK: Normal range of motion, supple CHEST: +chemoport R anterior chest - intact, clean dry LUNGS: Breath sounds equal, clear to auscultation bilaterally. No wheezes, and no crackles. No accessory muscle use. Poor inspiratory effort HEART: Regular rate and rhythm, normal S1 and S2 without murmur, rub or gallop. ABDOMEN: Soft, obese, nontender, not distended, normoactive bowel sounds, no guarding, no rebound, no masses. MUSCULOSKELETAL: +TTP R shoulder with limited active and passive ROM. LOWER EXTREMITIES: 2+ posterior tibial pulses, warm, well-perfused. +LLE diffusely TTP NEUROLOGICAL: Cranial nerves II-XII intact. SKIN: +scattered excoriated lesions - across thoracic portion of back, buttocks , posterior thighs, upper extremities Laboratory Results - last 24 hr 09/08/17 09/08/17 09/09/17 16:53 22:41 06:00 WBC 6.6 RBC 3.06 L Hgb 9.3 L Hct 26.9 L MCV 88.0 MCH 30.5 MCHC 34.6 RDW 18.6 H Plt Count 78 L MPV 7.8 Neutrophils % 89.0 H Lymphocytes % 7.1 L D Monocytes % 3.8 D Eosinophils % 0.0 Basophils % 0.1 Sodium Potassium Chloride Carbon Dioxide Anion Gap BUN Creatinine Creat Clearance w eGFR POC Glucometer 380 311 Random Glucose Calcium Phosphorus Magnesium Total Bilirubin AST ALT Alkaline Phosphatase Total Protein Albumin Vancomycin Pre-Dose 09/09/17 09/09/17 09/09/17 06:00 06:33 09:00 WBC RBC Hgb Hct MCV MCH MCHC RDW Plt Count MPV Neutrophils % Lymphocytes % Monocytes % Eosinophils % Basophils % Sodium 130 L Potassium 4.4 Chloride 96 L Carbon Dioxide 25 Anion Gap 9 BUN 26 H Creatinine 0.5 L Creat Clearance w eGFR > 60 POC Glucometer 305 Random Glucose 294 H Calcium 8.1 L Phosphorus 2.7 Magnesium 2.1 Total Bilirubin 0.4 AST 13 L ALT 56 Alkaline Phosphatase 137 H Total Protein 5.2 L Albumin 2.0 L Vancomycin Pre-Dose 28.113 H* 09/09/17 09/09/17 11:57 14:20 WBC RBC Hgb Hct MCV MCH MCHC RDW Plt Count MPV Neutrophils % Lymphocytes % Monocytes % Eosinophils % Basophils % Sodium 129 L Potassium 4.3 Chloride 93 L Carbon Dioxide 23 Anion Gap 13 BUN 27 H Creatinine 0.7 Creat Clearance w eGFR POC Glucometer 445 Random Glucose 434 H* Calcium 8.0 L Phosphorus Magnesium Total Bilirubin AST ALT Alkaline Phosphatase Total Protein Albumin Vancomycin Pre-Dose Active Medications Generic Name Dose Route Start Last Admin Trade Name Freq PRN Reason Stop Dose Admin Dexamethasone 4 mg 09/09/17 06:00 09/09/17 15:02 Decadron - PO 4 mg TID DIAN Administration Enalapril Maleate 20 mg 09/08/17 10:00 09/09/17 06:34 Vasotec - PO 20 mg DAILY DIAN Administration Insulin Aspart 1 vial 09/09/17 16:06 Novolog Vial Sliding Scale - SQ ACHS [facility] Protocol Levetiracetam 500 mg 09/07/17 22:00 09/09/17 09:15 Keppra - PO 500 mg BID DIAN Administration Levothyroxine Sodium 150 mcg 09/08/17 07:00 09/09/17 06:34 Synthroid - PO 150 mcg DAILY@0700 DIAN Administration Lidocaine 1 patch 09/08/17 15:15 09/09/17 09:14 Lidoderm Patch - TP 1 patch DAILY DIAN Administration Miscellaneous 1 each 09/08/17 22:00 09/08/17 22:43 Lidoderm Patch Removal MC 1 each DAILY@2200 DIAN Administration Mupirocin 1 applic 09/09/17 14:00 09/09/17 14:58 Bactroban 2% Cream - TP 1 applic TID DIAN Administration Oxycodone HCl 5 mg 09/08/17 10:42 09/08/17 23:32 Roxicodone - PO 5 mg Q4H PRN Administration PAIN LEVEL 6-10 Microbiology 09/07/17 Unknown Back Gram Stain - Final 09/07/17 Unknown Back Wound Culture - Preliminary Non Lactose Fermenting Gnb Presumptive Mrsa (Pbp2a Pos) Group D Strep Or Entero Coccus 09/08/17 12:30 Blood - Sakshi Cath Blood Culture - Preliminary Pending Organism 09/07/17 17:38 Blood - Peripheral Venous Blood Culture - Preliminary Presumptive Mrsa (Pbp2a Pos) 09/07/17 17:38 Blood - Peripheral Venous Blood Culture - Preliminary Presumptive Mrsa (Pbp2a Pos) 09/08/17 11:25 Blood - Sakshi Cath Blood Culture - Preliminary Pending Organism 09/08/17 11:18 Serum Cryptococcal Antigen - Preliminary 09/08/17 11:00 Wound Viral Culture - Preliminary ASSESSMENT/PLAN: 61 y/o F with PMH HTN, metastatic colon CA (to brain 07/10/17, lungs. Followed by Dr. Kaiser, on FOLFIRI chemo tx - leucovirin, fluorouracil, irinotecan. Last chemo 1 month ago, last radiation 1 wk ago), seizure hx (on Keppra), on dexamethasone taper 4mg currently, hypothyroidism, who presents to the ED with raised skin lesions over the past three weeks. Pt admitted to med-surg for dermatitis, skin lesions possibly 2/2 chemo side effect. #Skin lesions and bacteremia -Currently not septic -Immunocompromised, on chemo and dexamethasone. -Echocardiogram -Serum cryptococcal antigen, urine histoplamsa antigen, viral culture of skin lesions -Biopsy of lesion taken -Per ID, port likely needs to be removed given blood cx -ID consult- Dr. Chang -Derm consult- Dr. Atkins -Heme onc consult- Dr. Kaiser -BCX + x2. Wound cx positive as well with MRSA. -Lidocaine patch and oxycodone 5 q4h prn for pain control -Per Dr. Cohen, Patient to be NPO overnight in case he can to take out port tomorrow. #metastatic colon CA (to brain, lungs) -on FOLFIRI chemo tx - leucovorin, fluorouracil, irinotecan -last chemo in June, last radiation 1 wk ago -chemoport intact, without erythema -continue dexamethasone taper 4mg TID -Heme onc consult - Dr. Kaiser -No need for chemotherapy right now #Hyperglycemia likely 2/2 steroids, uncontrolled -BGM -ISS ACHS -A1c 8.9 #Seizure hx, with brain mets -Continue Keppra 500 mg BID #HTN- controlled -Continue Enalapril 20mg PO qd #Hypothyroidism -Continue levothyroxine 150 mcg PO qd #F/E/N -Continue to monitor electrolytes -Diabetic, Na controlled diet #PPX SCD's Visit type - Emergency Visit Emergency Visit: Yes ED Registration Date: 09/07/17 Care time: The patient presented to the Emergency Department on the above date and was hospitalized for further evaluation of their emergent condition. - New Patient This patient is new to me today: No - Critical Care Critical Care patient: No
--- NOTE | 2017-09-09 17:27 | PN ---
Progress Note (short form) - Note Progress Note: Patient seen and examined Complains of diffuse pains - especially right shoulder ( decrease ROM ) and left lower extremity Last Vital Signs Temp Pulse Resp BP Pulse Ox 98.1 F 70 18 138/71 98 09/09/17 15:22 09/09/17 15:22 09/09/17 15:22 09/09/17 15:22 09/09/17 09:00 HEENT: BETSY, EOM Intact Oropharynx: No thrush, No mucositis Cor: RSR, No murmurs, No gallops Lungs: diminished breath sounds bilaterally Abd: Soft, Normal bowel sounds, No organomegaly, ventral hernias Ext LE edema Skin: multiple cutaneous lesions entire body , left forehead cyst, furuncles( per derm) Proximal weakness with inability antigravity LE's Decrease ROM RUE Port cath CBC, BMP 09/09/17 06:00 09/09/17 14:20 Current Medications Generic Name Dose Route Start Last Admin Trade Name Freq PRN Reason Stop Dose Admin Dexamethasone 4 mg 09/09/17 06:00 09/09/17 15:02 Decadron - PO 4 mg TID DIAN Administration Enalapril Maleate 20 mg 09/08/17 10:00 09/09/17 06:34 Vasotec - PO 20 mg DAILY DIAN Administration Insulin Aspart 1 vial 09/09/17 16:06 09/09/17 16:51 Novolog Vial Sliding Scale - SQ 8 units ACHS DIAN Administration Protocol Levetiracetam 500 mg 09/07/17 22:00 09/09/17 09:15 Keppra - PO 500 mg BID DIAN Administration Levothyroxine Sodium 150 mcg 09/08/17 07:00 09/09/17 06:34 Synthroid - PO 150 mcg DAILY@0700 DIAN Administration Lidocaine 1 patch 09/08/17 15:15 09/09/17 09:14 Lidoderm Patch - TP 1 patch DAILY DIAN Administration Miscellaneous 1 each 09/08/17 22:00 09/08/17 22:43 Lidoderm Patch Removal MC 1 each DAILY@2200 DIAN Administration Mupirocin 1 applic 09/09/17 14:00 09/09/17 14:58 Bactroban 2% Cream - TP 1 applic TID DIAN Administration Oxycodone HCl 5 mg 09/08/17 10:42 09/08/17 23:32 Roxicodone - PO 5 mg Q4H PRN Administration PAIN LEVEL 6-10 Impression: Metastatic colon 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 Bacteremia----Antibiotics per ID Port cath infection Pain control----Fentanyl patch Steroid myopathy----> taper Anemia- chemotherapy --->/ infection thrombocytopenia----> chemotherapy/infection Diabetes Mellitus ---> adjust sliding scale Plan: Taper steroids Remove and change port ( Poor IV access) Antibiotics per ID monitor Chems/CBC May need bone scan and /or X-rays of right shoulder and Left lower extremity - tibia and fibula area.
[2017-09-09] MEDS ORDERED: FENTANYL PATCH WASTE TD PRN (17:41)
[2017-09-09] MEDS ORDERED: DOCUSATE SODIUM 100 MG CAPSULE (FP) PO PRN (17:41)
[2017-09-09] MEDS ORDERED: fentaNYL 25mcg/hr PATCH.TD72 TD SCH (18:00)
--- NOTE | 2017-09-09 18:33 | PN ---
Teaching Attending Note Name of Resident: Burke Vuong ATTENDING PHYSICIAN STATEMENT I saw and evaluated the patient. I reviewed the resident's note and discussed the case with the resident. I agree with the resident's findings and plan as documented. SUBJECTIVE: No new complaints. OBJECTIVE: Vital Signs Period Temp Pulse Resp BP Sys/[place] Pulse Ox Last 24 Hr 98 F-98.3 F 63-72 16-18 138-174/71-92 97-98 HEART: S1S2, RRR LUNGS: Clear ABDOMEN: Obese, soft, non-tender, non-distended, normal BS EXTREMITIES: No edema SKIN: Multiple lesions scattered over body - some crusted, some open, multiple excoriations, large cystic lesion on back with purulent drainage. Port site not erythematous with no drainage. Laboratory Results - last 24 hr 09/08/17 09/09/17 09/09/17 22:41 06:00 06:00 WBC 6.6 RBC 3.06 L Hgb 9.3 L Hct 26.9 L MCV 88.0 MCH 30.5 MCHC 34.6 RDW 18.6 H Plt Count 78 L MPV 7.8 Neutrophils % 89.0 H Lymphocytes % 7.1 L D Monocytes % 3.8 D Eosinophils % 0.0 Basophils % 0.1 Sodium 130 L Potassium 4.4 Chloride 96 L Carbon Dioxide 25 Anion Gap 9 BUN 26 H Creatinine 0.5 L Creat Clearance w eGFR > 60 POC Glucometer 311 Random Glucose 294 H Calcium 8.1 L Phosphorus 2.7 Magnesium 2.1 Total Bilirubin 0.4 AST 13 L ALT 56 Alkaline Phosphatase 137 H Total Protein 5.2 L Albumin 2.0 L Vancomycin Pre-Dose 09/09/17 09/09/17 09/09/17 06:33 09:00 11:57 WBC RBC Hgb Hct MCV MCH MCHC RDW Plt Count MPV Neutrophils % Lymphocytes % Monocytes % Eosinophils % Basophils % Sodium Potassium Chloride Carbon Dioxide Anion Gap BUN Creatinine Creat Clearance w eGFR POC Glucometer 305 445 Random Glucose Calcium Phosphorus Magnesium Total Bilirubin AST ALT Alkaline Phosphatase Total Protein Albumin Vancomycin Pre-Dose 28.113 H* 09/09/17 09/09/17 14:20 16:46 WBC RBC Hgb Hct MCV MCH MCHC RDW Plt Count MPV Neutrophils % Lymphocytes % Monocytes % Eosinophils % Basophils % Sodium 129 L Potassium 4.3 Chloride 93 L Carbon Dioxide 23 Anion Gap 13 BUN 27 H Creatinine 0.7 Creat Clearance w eGFR POC Glucometer 332 Random Glucose 434 H* Calcium 8.0 L Phosphorus Magnesium Total Bilirubin AST ALT Alkaline Phosphatase Total Protein Albumin Vancomycin Pre-Dose Current Medications Generic Name Dose Route Start Last Admin Trade Name Freq PRN Reason Stop Dose Admin Dexamethasone 4 mg 09/09/17 06:00 09/09/17 15:02 Decadron - PO 4 mg TID DIAN Administration Docusate Sodium 100 mg 09/09/17 17:41 Colace - PO Q8H PRN CONSTIPATION Enalapril Maleate 20 mg 09/08/17 10:00 09/09/17 06:34 Vasotec - PO 20 mg DAILY DIAN Administration Fentanyl 1 patch 09/09/17 18:00 Duragesic 25mcg Patch - TD 09/16/17 17:59 Q72H DIAN Insulin Aspart 1 vial 09/09/17 16:06 09/09/17 16:51 Novolog Vial Sliding Scale - SQ 8 units ACHS DIAN Administration Protocol Levetiracetam 500 mg 09/07/17 22:00 09/09/17 09:15 Keppra - PO 500 mg BID DIAN Administration Levothyroxine Sodium 150 mcg 09/08/17 07:00 09/09/17 06:34 Synthroid - PO 150 mcg DAILY@0700 DIAN Administration Lidocaine 1 patch 09/08/17 15:15 09/09/17 09:14 Lidoderm Patch - TP 1 patch DAILY DIAN Administration Miscellaneous 1 each 09/08/17 22:00 09/08/17 22:43 Lidoderm Patch Removal MC 1 each DAILY@2200 DIAN Administration Miscellaneous 1 each 09/09/17 17:41 Duragesic Patch Waste TD PRN PRN PAIN Mupirocin 1 applic 09/09/17 14:00 09/09/17 14:58 Bactroban 2% Cream - TP 1 applic TID DIAN Administration Oxycodone HCl 5 mg 09/08/17 10:42 09/08/17 23:32 Roxicodone - PO 5 mg Q4H PRN Administration PAIN LEVEL 6-10 Polyethylene Glycol 17 gm 09/09/17 18:00 Miralax (For Daily Use) - PO DAILY DIAN ASSESSMENT AND PLAN: This is a 61 year old woman with a history of HTN, colon cancer with metastases to brain and lungs, seizures, hypothyroidism who presented to the ED with worsening skin lesions. 1. Multiple skin lesions - Dermatology consult appreciated - biopsy done 2. MRSA bacteremia - Blood cultures from port are positive - Continue Vancomycin - Port removal 3. 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 HTN - Continue Vasotec 7. Hypothyroidism - Continue Synthroid 8. Anemia, thrombocytopenia secondary to chemotherapy, cancer, infection - Montior hemoglobin, platelets 9. Pseudohyponatremia secondary to hyperglycemia - Corrected sodium is 134
[2017-09-09] MEDS: POLYETHYLENE GLYCOL 3350 119 GM BTL PO SCH (18:50)
[2017-09-09] MEDS: oxyCODONE HCL 5 MG TABLET PO PRN (22:27)
[2017-09-09] MEDS: LIDOCAINE PATCH REMOVAL MC SCH (23:05)
[2017-09-10] MEDS: oxyCODONE HCL 5 MG TABLET PO PRN ×2 (02:43→16:49)
[2017-09-10] MEDS: LEVOTHYROXINE NA 150 MCG TABLET PO SCH (06:33)
[2017-09-10] MEDS: DEXAMETHASONE 4 MG TABLET (FP) PO SCH ×3 (06:33→21:36)
[2017-09-10] MEDS: INSULIN SLIDING SCALE (NOVOLOG) 1 VIAL SQ SCH ×4 (06:34→21:37)
[2017-09-10] MEDS: MUPIROCIN CA 2% TOPICAL CREAM 15 GM TUBE TP SCH ×3 (06:34→21:36)
[2017-09-10] MEDS ORDERED: TRIPLE LUMEN FLUSH 4 ML ML IVPUSH PRN (07:04)
[2017-09-10 08:08] LABS: HEMATOCRIT 28.1 % (32.4-45.2); HEMOGLOBIN 9.7 GM/dL (10.7-15.3); MCH 30.3 pg (25.7-33.7); MCHC 34.4 g/dl (32.0-36.0); MEAN CELL VOLUME 87.9 fl (80-96); PLATELET COUNT 94 K/MM3 (134-434); RBC 3.19 M/mm3 (3.60-5.2); RDW 18.1 % (11.6-15.6)
[2017-09-10 08:22] LABS: CHLORIDE 98 mmol/L (98-107); POTASSIUM 4.4 mmol/L (3.5-5.1); SODIUM 134 mmol/L (136-145)
--- NOTE | 2017-09-10 08:48 | PN ---
Progress Note (short form) - Note Progress Note: no complaints NPO awaiting port removal today Vital Signs Period Temp Pulse Resp BP Sys/[place] Pulse Ox Last 24 Hr 97.6 F-98.2 F 63-72 16-18 138-166/71-90 97-98 cor-rrr lungs clear abd soft,nt ext no edema right Chest wall port no erythema forehead lesion now draining pus! other lesions unchanged CBC, BMP 09/10/17 06:00 Microbiology 09/09/17 06:00 Blood - Peripheral Venous Blood Culture - Preliminary Pending Organism 09/09/17 06:00 Blood - Peripheral Venous Blood Culture - Preliminary Pending Organism 09/07/17 Unknown Back Gram Stain - Final 09/07/17 Unknown Back Wound Culture - Preliminary Non Lactose Fermenting Gnb Presumptive Mrsa (Pbp2a Pos) Group D Strep Or Entero Coccus 09/08/17 12:30 Blood - Sakshi Cath Blood Culture - Preliminary Presumptive Mrsa (Pbp2a Pos) 09/08/17 11:25 Blood - Sakshi Cath Blood Culture - Preliminary Presumptive Mrsa (Pbp2a Pos) 09/07/17 17:38 Blood - Peripheral Venous Blood Culture - Preliminary Presumptive Mrsa (Pbp2a Pos) 09/07/17 17:38 Blood - Peripheral Venous Blood Culture - Preliminary Presumptive Mrsa (Pbp2a Pos) 09/08/17 11:18 Serum Cryptococcal Antigen - Preliminary 09/08/17 11:00 Wound Viral Culture - Preliminary a/p mrsa bacteremia port infecion skin lesions- likely staph?- biopsy pending will send culture repeat blood cultures in am after port removal will switch to daptomycin daily check cpk today and weekly while on daptomycin skin lesions in 61 year old female on chemo and steroids-felt to have furuncles by derm, shave biopsy done and pending metastatic colon cancer -on decadron for brain lesion thrombocytopenia- suspect secondary to infection overall prognosis is poor Problem List - Problems (1) Bacteremia Code(s): R78.81 - BACTEREMIA (2) Skin lesions, generalized Code(s): L98.9 - DISORDER OF THE SKIN AND SUBCUTANEOUS TISSUE, UNSPECIFIED (3) Colon cancer metastasized to multiple sites Code(s): C18.9 - MALIGNANT NEOPLASM OF COLON, UNSPECIFIED
[2017-09-10 08:52] LABS: ANION GAP 14 (8-16); BLOOD UREA NITROGEN 22 mg/dL (7-18); CALCIUM 8.1 mg/dL (8.5-10.1); CO2 22 mmol/L (21-32); CREATININE 0.5 mg/dL (0.55-1.02); GLUCOSE,RANDOM 239 mg/dL (74-106); MAGNESIUM 2.2 mg/dL (1.8-2.4); PHOSPHOROUS 3.7 mg/dL (2.5-4.9)
[2017-09-10 08:57] LABS: ANISOCYTOSIS 1+; MACROCYTOSIS 0; PLATELET ESTIMATE DECREASED; TOXIC GRANULATION 1+
--- NOTE | 2017-09-10 09:41 | PN ---
Progress Note (short form) - Note Progress Note: Patient seen In stretcher and going to OR CC: Pain in right shoulder with decrease ROM and pain in Left lower extremity distally. Last Vital Signs Temp Pulse Resp BP Pulse Ox 98.2 F 64 18 165/79 97 09/10/17 09:23 09/10/17 09:23 09/10/17 09:23 09/10/17 09:23 09/09/17 21:00 Multiple cutaneeous lesions on skin and forehead- ?? septic emboli from staph Painful musculoskeletal areas ?? staph ?? mets CBC, BMP 09/10/17 06:00 09/10/17 06:00 Current Medications Generic Name Dose Route Start Last Admin Trade Name Freq PRN Reason Stop Dose Admin Dexamethasone 4 mg 09/09/17 06:00 09/10/17 06:33 Decadron - PO 4 mg TID DIAN Administration Docusate Sodium 100 mg 09/09/17 17:41 Colace - PO Q8H PRN CONSTIPATION Enalapril Maleate 20 mg 09/08/17 10:00 09/09/17 06:34 Vasotec - PO 20 mg DAILY DIAN Administration Fentanyl 1 patch 09/09/17 18:00 09/09/17 18:50 Duragesic 25mcg Patch - TD 09/16/17 17:59 1 patch Q72H DIAN Administration IV Flush 4 ml 09/10/17 07:04 Triple Lumen Flush IVPUSH PRN PRN Protocol Daptomycin 750 mg/ Sodium 100 mls @ 50 mls/hr 09/10/17 10:00 Chloride IVPB DAILY DIAN Protocol Insulin Aspart 1 vial 09/09/17 16:06 09/10/17 06:34 Novolog Vial Sliding Scale - SQ 6 units ACHS DIAN Administration Protocol Levetiracetam 500 mg 09/07/17 22:00 09/09/17 22:26 Keppra - PO 500 mg BID DIAN Administration Levothyroxine Sodium 150 mcg 09/08/17 07:00 09/10/17 06:33 Synthroid - PO 150 mcg DAILY@0700 DIAN Administration Lidocaine 1 patch 09/08/17 15:15 09/09/17 09:14 Lidoderm Patch - TP 1 patch DAILY DIAN Administration Miscellaneous 1 each 09/08/17 22:00 09/09/17 23:05 Lidoderm Patch Removal MC 1 each DAILY@2200 DIAN Administration Miscellaneous 1 each 09/09/17 17:41 Duragesic Patch Waste TD PRN PRN PAIN Mupirocin 1 applic 09/09/17 14:00 09/10/17 06:34 Bactroban 2% Cream - TP Not Given TID DIAN Oxycodone HCl 5 mg 09/08/17 10:42 09/10/17 02:43 Roxicodone - PO 5 mg Q4H PRN Administration PAIN LEVEL 6-10 Polyethylene Glycol 17 gm 09/09/17 18:00 09/09/17 18:50 Miralax (For Daily Use) - PO 17 grams DAILY DIAN Administration Impression: 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 staph Nusculoskeletal pains ? staph, ? mets- Anemia Thrombocytopenia Plan: Antibiotics per ID Bone scan Continue to monitor chems, sugars, and CBC PT Taper decadron to 8 mg on 08/15
[2017-09-10] MEDS ORDERED: DAPTOMYCIN 600 MG in SODIUM CHLORIDE 50 ML IVPB SCH (10:00)
[2017-09-10] MEDS ORDERED: DAPTOMYCIN 750 MG in SODIUM CHLORIDE 100 ML IVPB SCH (10:00)
--- NOTE | 2017-09-10 10:50 | PN ---
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 She is down in OR for port removal, suspect line sepsis and and plan to document clearance post port removal. TTE does not show overt vegetation. Will consider DIANA if bacteremia persists despite catheter removal and appropriate abx coverage. Thank you for consultative opportunity.
[2017-09-10] MEDS: LIDOCAINE 5% TOPICAL PATCH TP SCH (11:12)
[2017-09-10] MEDS ORDERED: INSULIN (NOVOLOG) ASPART 100 UNITS/ML 10ML VIAL ONE (11:50)
[2017-09-10] MEDS: POLYETHYLENE GLYCOL 3350 119 GM BTL PO SCH (12:03)
[2017-09-10] MEDS: levETIRAcetam 500 MG TABLET (FP) PO SCH ×2 (12:04→21:36)
[2017-09-10] MEDS ORDERED: LIDOCAINE HCL 1%, 10 MG/ML (20ML VIAL) ONE (12:26)
--- NOTE | 2017-09-10 12:31 | PN ---
Progress Note (short form) - Note Progress Note: Attending Surgeon For removal of port secondary to positive blood cultures; alternate access was established earlier today on the left by interventional radiology; will also evaluste ABSSSI of the back; informed consent obtained. Rodney Cohen MD FACS
--- NOTE | 2017-09-10 13:21 | PN ---
Physical Exam: SUBJECTIVE: Patient seen and examined No acute events overnight. Patient still has right shoulder pain and skin lesions. Patient complaining of LLE calf tenderness. Patient denies fever, chills, chest pain, shortness of breath, or abdominal pain. OBJECTIVE: Vital Signs Period Temp Pulse Resp BP Sys/[place] Pulse Ox Last 24 Hr 97.6 F-98.2 F 63-71 18-18 138-166/71-88 97-97 GENERAL: Awake, alert, and fully oriented. No acute distress. HEAD: +scattered bleeding, excorciated lesions on face with 1 on left forehead draining pus. EYES: Pupils equal, round and reactive to light, extraocular movements intact, sclera anicteric, conjunctiva clear. EARS, NOSE, THROAT: Oropharynx clear without exudates. Moist mucous membranes. NECK: Normal range of motion, supple CHEST: +chemoport R anterior chest - c/d/i LUNGS: Breath sounds equal, clear to auscultation bilaterally. No wheezes, and no crackles. No accessory muscle use. HEART: Regular rate and rhythm, normal S1 and S2 without murmur, rub or gallop. ABDOMEN: Soft, obese, nontender, not distended, normoactive bowel sounds, no guarding, no rebound, no masses. MUSCULOSKELETAL: +TTP R shoulder with limited active and passive ROM. LOWER EXTREMITIES: 2+ posterior tibial pulses, warm, well-perfused. +LLE calf tenderness NEUROLOGICAL: Cranial nerves II-XII intact. Right arm extension 2/5. Shoulder abduction 1/5. 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 Decreased ROM of right shoulder. SKIN: +scattered ulcerative nodules throughout body (face, arms, back, legs) with few purulent draining furuncles. Laboratory Results - last 24 hr 09/09/17 09/09/17 09/09/17 14:20 16:46 22:22 WBC RBC Hgb Hct MCV MCH MCHC RDW Plt Count MPV Neutrophils % Neutrophils % (Manual) Band Neutrophils % Lymphocytes % Lymphocytes % (Manual) Monocytes % (Manual) Eosinophils % (Manual) Basophils % (Manual) Myelocytes % (Man) Promyelocytes % (Man) Blast Cells % (Manual) Nucleated RBC % Metamyelocytes Hypochromia Toxic Granulation Platelet Estimate Polychromasia Poikilocytosis Anisocytosis Microcytosis Macrocytosis Sodium 129 L Potassium 4.3 Chloride 93 L Carbon Dioxide 23 Anion Gap 13 BUN 27 H Creatinine 0.7 POC Glucometer 332 328 Random Glucose 434 H* Calcium 8.0 L Phosphorus Magnesium Creatine Kinase Random Vancomycin Blood Type Antibody Screen 09/10/17 09/10/17 09/10/17 06:00 06:00 06:00 WBC 7.0 RBC 3.19 L Hgb 9.7 L Hct 28.1 L MCV 87.9 MCH 30.3 MCHC 34.4 RDW 18.1 H Plt Count 94 L D MPV 8.0 Neutrophils % No Result Required. Neutrophils % (Manual) 75.0 Band Neutrophils % 14.0 Lymphocytes % No Result Required. Lymphocytes % (Manual) 4.0 L D Monocytes % (Manual) 2 L Eosinophils % (Manual) 0.0 Basophils % (Manual) 0.0 Myelocytes % (Man) 2 D Promyelocytes % (Man) 1 D Blast Cells % (Manual) 0 Nucleated RBC % 1 H Metamyelocytes 0 D Hypochromia 0 Toxic Granulation 1+ Platelet Estimate Decreased Polychromasia 0 Poikilocytosis 0 Anisocytosis 1+ Microcytosis 1+ Macrocytosis 0 Sodium 134 L Potassium 4.4 Chloride 98 Carbon Dioxide 22 Anion Gap 14 BUN 22 H Creatinine 0.5 L POC Glucometer Random Glucose 239 H Calcium 8.1 L Phosphorus 3.7 Magnesium 2.2 Creatine Kinase 24 L Random Vancomycin 16.927 Blood Type Antibody Screen 09/10/17 09/10/17 09/10/17 06:00 06:32 11:42 WBC RBC Hgb Hct MCV MCH MCHC RDW Plt Count MPV Neutrophils % Neutrophils % (Manual) Band Neutrophils % Lymphocytes % Lymphocytes % (Manual) Monocytes % (Manual) Eosinophils % (Manual) Basophils % (Manual) Myelocytes % (Man) Promyelocytes % (Man) Blast Cells % (Manual) Nucleated RBC % Metamyelocytes Hypochromia Toxic Granulation Platelet Estimate Polychromasia Poikilocytosis Anisocytosis Microcytosis Macrocytosis Sodium Potassium Chloride Carbon Dioxide Anion Gap BUN Creatinine POC Glucometer 256 212 Random Glucose Calcium Phosphorus Magnesium Creatine Kinase Random Vancomycin Blood Type A POSITIVE Antibody Screen Negative Active Medications Generic Name Dose Route Start Last Admin Trade Name Freq PRN Reason Stop Dose Admin Dexamethasone 4 mg 09/09/17 06:00 09/10/17 06:33 Decadron - PO 4 mg TID DIAN Administration Docusate Sodium 100 mg 09/09/17 17:41 Colace - PO Q8H PRN CONSTIPATION Enalapril Maleate 20 mg 09/08/17 10:00 09/09/17 06:34 Vasotec - PO 20 mg DAILY DIAN Administration Fentanyl 1 patch 09/09/17 18:00 09/09/17 18:50 Duragesic 25mcg Patch - TD 09/16/17 17:59 1 patch Q72H DIAN Administration IV Flush 4 ml 09/10/17 07:04 Triple Lumen Flush IVPUSH PRN PRN Protocol Daptomycin 750 mg/ Sodium 100 mls @ 50 mls/hr 09/10/17 10:00 Chloride IVPB DAILY [facility] Protocol Insulin Aspart 1 vial 09/09/17 16:06 09/10/17 12:03 Novolog Vial Sliding Scale - SQ Not Given ACHS [facility] Protocol Levetiracetam 500 mg 09/07/17 22:00 09/10/17 12:04 Keppra - PO Not Given BID [facility] Levothyroxine Sodium 150 mcg 09/08/17 07:00 09/10/17 06:33 Synthroid - PO 150 mcg DAILY@0700 [facility] Administration Lidocaine 1 patch 09/08/17 15:15 09/09/17 09:14 Lidoderm Patch - TP 1 patch DAILY DIAN Administration Miscellaneous 1 each 09/08/17 22:00 09/09/17 23:05 Lidoderm Patch Removal MC 1 each DAILY@2200 DIAN Administration Miscellaneous 1 each 09/09/17 17:41 Duragesic Patch Waste TD PRN PRN PAIN Mupirocin 1 applic 09/09/17 14:00 09/10/17 06:34 Bactroban 2% Cream - TP Not Given TID [facility] Oxycodone HCl 5 mg 09/08/17 10:42 09/10/17 02:43 Roxicodone - PO 5 mg Q4H PRN Administration PAIN LEVEL 6-10 Polyethylene Glycol 17 gm 09/09/17 18:00 09/10/17 12:03 Miralax (For Daily Use) - PO Not Given DAILY [facility] ASSESSMENT/PLAN: 61 y/o F with PMH HTN, metastatic colon CA (to brain 07/10/17, lungs. Followed by Dr. Kaiser, on FOLFIRI chemo tx - leucovirin, fluorouracil, irinotecan. Last chemo in June, last radiation 1 wk ago), seizure hx (on Keppra), on dexamethasone taper 4mg currently, hypothyroidism, who presented with raised skin lesions and decreased ambulation over the past three weeks. #Skin lesions and bacteremia -Currently not septic -Immunocompromised, on chemo and dexamethasone. -Echocardiogram-- no evidence of mass/vegitation. cannot rule out endocarditis. -Cardiology consult for DIANA, Dr. Lin. Will hold off on DIANA unless patient continues to be bacteremic without port -Serum cryptococcal antigen, urine histoplamsa antigen, viral culture of skin lesions pending -Biopsy of skin lesions obtained -ID consult- Dr. Chang -Derm consult- Dr. Atkins -Heme onc consult- Dr. Kaiser -BCX + x2. Wound cx positive as well with MRSA, group d strep, and non lactose fermenting gnb. (1st bcx mrsa, 2nd mrsa, 3rd pending organism) -Lidocaine patch, Fentanyl patch, and oxycodone 5 q4h prn for pain control -Portacath removed today and central venous access placed today. -Patient switched from Vancomycin to Daptomycin 750 mg daily today, will get repeat bcx -Ortho consult for right shoulder, ?septic joint. Dr. Armenta #metastatic colon CA (to brain, lungs) -on FOLFIRI chemo tx - leucovorin, fluorouracil, irinotecan -last chemo in June, last radiation 1 wk ago -chemoport intact, without erythema -continue dexamethasone taper 4mg TID, on Friday will change to 4mg BID -Heme onc consult - Dr. Kaiser -No need for chemotherapy right now -Palliative consult placed #Hyperglycemia likely 2/2 steroids, uncontrolled -BGM ACHS -ISS ACHS -A1c 8.9 #Seizure hx, with brain mets -Continue Keppra 500 mg BID #HTN- -Continue Enalapril 20mg PO qd #Hypothyroidism -Continue levothyroxine 150 mcg PO qd #F/E/N -Continue to monitor electrolytes -Diabetic, Na controlled diet #PPX SCD's Patient is now DNI. Visit type - Emergency Visit Emergency Visit: Yes ED Registration Date: 09/07/17 Care time: The patient presented to the Emergency Department on the above date and was hospitalized for further evaluation of their emergent condition. - New Patient This patient is new to me today: No - Critical Care Critical Care patient: No
[2017-09-10] MEDS ORDERED: MIDAZOLAM HCL 2 MG/2 ML SINGLE DOSE VIAL ONE (13:29)
[2017-09-10] MEDS ORDERED: LIDOCAINE HCL 1%, 10 MG/ML (20ML VIAL) INF ONE ×3 (13:36→14:00)
--- NOTE | 2017-09-10 14:02 | PATH ---
Surgical Pathology Report Patient Name: BHUPENDRA MCMILLAN Med. Rec. #: [id number] /Age/Gender: 1955 (Age: 61) / F Account: [id number] Location: [facility] MED/SURG Taken: 09/09/2017 Received: 09/09/2017 Reported: 09/10/2017 Physicians: Christianne Atkins M.D. Specimen(s) Received BX SKIN BIOPSY Clinical History Patient has history of colon cancer, metastases to brain History of ulcerations on body, rule out furuncles/viral/atypical mycobacterium fungal infection Final Diagnosis SKIN, SHAVE BIOPSY: SKIN AND UNDERLYING DERMIS WITH MARKED ACUTE INFLAMMATORY EXUDATE AND ULCERATION. BACTERIAL COLONIES ARE IDENTIFIED. AFB AND PAS SPECIAL STAINS ARE NEGATIVE FOR ACID FAST BACILLI AND FUNGAL ORGANISMS. Comment: Suggest clinical and microbiologic studies correlation. Prior material is noted. Electronically Signed Xin Dawson M.D. Gross Description Received in formalin, labeled with the patient's name and indicated on the requisition to be a skin biopsy from the left anterior thigh, is a 0.4 x 0.3 cm skin shave biopsy. The epidermal surface displays a 0.3 x 0.3 cm brown pigmented lesion. The base is inked blue and the specimen is submitted in toto in one cassette. /09/09/201709/09/2017
--- NOTE | 2017-09-10 14:28 | OP ---
Operative Note - Note: Operative Date: 09/10/17 Pre-Operative Diagnosis: back abscess/MRSA sepsis Operation: I and D back abscess and port removal Findings: as above Post-Operative Diagnosis: Same as Pre-op Surgeon: Rodney Cohen Anesthesiologist/ORGAN GRINDER: Bhumi Degroot MD Anesthesia: MAC Specimens Removed: port Estimated Blood Loss (mls): 10 Drains & Tubes with Location: packing in back abscess
[2017-09-10] MEDS ORDERED: ONDANSETRON 4 MG/2 ML VIAL IVPUSH PRN (14:38)
[2017-09-10] MEDS ORDERED: FENTANYL PATCH WASTE TD PRN (14:43)
[2017-09-10] MEDS ORDERED: FENTANYL PATCH WASTE MC PRN (14:43)
[2017-09-10] MEDS ORDERED: LACTATED RINGERS SOLUTION 1,000 ML IV SCH (14:45)
--- NOTE | 2017-09-10 16:00 | PN ---
Teaching Attending Note Name of Resident: Burke Vuong ATTENDING PHYSICIAN STATEMENT I saw and evaluated the patient. I reviewed the resident's note and discussed the case with the resident. I agree with the resident's findings and plan as documented. SUBJECTIVE: pain in R shoulder and am. No fever or chills , no other complaints OBJECTIVE: NAD , Awake and cooperative HEENT: MMM, skin lesions on face and forehead with cab on L sided forehead. CV: RRr, no mRG Lungs : CTAB Ext: no edema no foot ulcers Skin , multiple lesions with different stages , erythema, pus filled vesicles, scabbed lesions, and ulcerated indurated a areas . surgical dressing on Lower back , dressing on R prt site . L central line in neck . Neuro: no facial droop, nl facial sensation . tongue at mid line MS : limited range of motion of R shoulder , tenderness to palpation , no erythema , no edema . strength : RUE: can't evaluate shoulder shrug, or abduction due to pain. biceps /trices 4/ 5 ( pain) . LUE: shoulder shrug, abduction , biceps/triceps 5/5 . RLE: hip flexion 3/5 . knee flexion and extension 3/5 . ankle dorsiflexion and plantar flexion 5/5 LLE: hip flexion 3/5 . knee flexion and extension 3/5 . ankle dorsiflexion and plantar flexion 5/5 Reflexes: 2+ knee jerk b/l. 2+ biceps b/l ASSESSMENT AND PLAN: very unfortunate 61 y/o lady with h/o met colon cancer to lungs and brain , s/p chemo , and other medical problems who presented with skin lesions and was found to have MRSA bacteremia. 1- MRSA bacteremia : source could be the port , but also could be the skin infected skin lesions. bacteremia did not clear yet. switched to Dapto today. - first dose of DApto now - repeat blood cx on DApto - no vegetations on Echo , no murmurs on exam. DIANA if no clearance -need to r/o R shoulder seeding with bacteria. Ortho consult for aspiration - bone scan ordered 2- Skin lesions : unclear etiology. infected . - Bx showed inflammatory/infectious etiology. with Neg [employer] - cont Abx - s/p back lesion I&D today. cx taken 3- New diagnosis of diabetes. A1c noted - cont SSI, expect it to improve with tapering steroids 4- Metastatic colon cancer: - cont decadron taper - palliative care consult 5- HTN: cont enalapril Goals of care: will discuss code status with patient and son . palliative care consult poor prognosis
[2017-09-10] MEDS: ENALAPRIL MALEATE 10 MG TABLET (FP) PO SCH (16:12)
[2017-09-10] MEDS: DAPTOMYCIN 750 MG in SODIUM CHLORIDE 100 ML IVPB SCH (16:49)
[2017-09-10] MEDS ORDERED: LIDOCAINE PATCH REMOVAL MC SCH (22:00)
[2017-09-10] MEDS: LIDOCAINE PATCH REMOVAL MC SCH (22:43)
[2017-09-11] MEDS: DEXAMETHASONE 4 MG TABLET (FP) PO SCH ×2 (06:37→14:37)
[2017-09-11] MEDS: LEVOTHYROXINE NA 150 MCG TABLET PO SCH (06:37)
[2017-09-11] MEDS: MUPIROCIN CA 2% TOPICAL CREAM 15 GM TUBE TP SCH ×3 (06:37→22:28)
[2017-09-11] MEDS: INSULIN SLIDING SCALE (NOVOLOG) 1 VIAL SQ SCH ×4 (06:38→22:29)
[2017-09-11] MEDS ORDERED: INSULIN (NOVOLOG) ASPART 100 UNITS/ML 10ML VIAL ONE ×3 (06:57→21:10)
[2017-09-11] MEDS ORDERED: PT OWN MED DRAWER 7, Y5N ONE (06:58)
[2017-09-11 07:48] LABS: HEMATOCRIT 28.6 % (32.4-45.2); HEMOGLOBIN 9.8 GM/dL (10.7-15.3); MCH 30.1 pg (25.7-33.7); MCHC 34.2 g/dl (32.0-36.0); PLATELET COUNT 111 K/MM3 (134-434); RBC 3.25 M/mm3 (3.60-5.2); RDW 18.6 % (11.6-15.6); WHITE BLOOD COUNT 6.9 K/mm3 (4.0-10.0)
[2017-09-11 08:06] LABS: ANION GAP 11 (8-16); BLOOD UREA NITROGEN 23 mg/dL (7-18); CALCIUM 7.8 mg/dL (8.5-10.1); CHLORIDE 98 mmol/L (98-107); CO2 26 mmol/L (21-32); CREATININE 0.6 mg/dL (0.55-1.02); GLUCOSE,RANDOM 246 mg/dL (74-106); POTASSIUM 4.4 mmol/L (3.5-5.1); SODIUM 135 mmol/L (136-145)
--- NOTE | 2017-09-11 08:20 | PN ---
Progress Note (short form) - Note Progress Note: POD #1 - s/p I&D of back abscess/removal of port under MAC. VSS. Pt. doing well , sitting up comfortably in bed. No complaints. No apparent anesthetic complications noted. Continue current care.
--- NOTE | 2017-09-11 09:02 | CON.ORTH ---
Consult Reason for Consultation:: right shoulder pain - Past Medical History ...: No - Alcohol/Substance Use Hx Alcohol Use: No - Smoking History Smoking history: Never smoked Have you smoked in the past 12 months: No Aproximately how many cigarettes per day: 0 Home Medications - Allergies Allergies/Adverse Reactions: Allergies Allergy/AdvReac Type Severity Reaction Status Date / Time ciprofloxacin [From Cipro] Allergy Severe Verified 09/07/17 17:17 ciprofloxacin HCl Allergy Severe Verified 09/07/17 17:17 [From Cipro] loratadine [From Claritin] Allergy Severe Verified 09/07/17 17:17 Penicillins Allergy Severe Verified 09/07/17 17:17 acetaminophen [From Tylenol] AdvReac Severe Verified 09/10/17 12:40 - Home Medications Home Medications: Ambulatory Orders Enalapril Maleate [Vasotec] 20 mg PO DAILY 12/24/16 Levothyroxine [Synthroid -] 150 mcg PO DAILY 12/24/16 Simvastatin [Zocor -] 10 mg PO HS 07/22/17 Dexamethasone [Decadron -] 4 mg PO Q6H #120 tablet 07/24/17 levETIRAcetam [Keppra -] 500 mg PO BID #60 tablet 07/24/17 Physical Exam for Ortho Vital Signs: Vital Signs Temperature 98 F 09/11/17 06:00 Pulse Rate 71 09/11/17 06:00 Respiratory Rate 18 09/11/17 06:00 Blood Pressure 144/86 09/11/17 06:00 O2 Sat by Pulse Oximetry (%) 97 09/10/17 21:47 Labs: CBC, BMP 09/11/17 06:00 09/11/17 06:00 INR, PTT INR 1.07 (0.82-1.09) 09/07/17 17:38 - Upper Extremity Shoulder: Yes: Right, Other (no swelling, no erythema/ecchymosis, mild ttp, unable to actively FF shoulder, passive ROM FF 170, ER 35 without much pain, + empty can, nvi but pt does note numbness/tingling at times) Imaging - Results X-ray: Report Reviewed, Image Reviewed (periosteal reaction in proximal humerus which has not changed since xrays in June 2017) Assessment/Plan 61 y/o F with PMH HTN, metastatic colon CA (to brain 07/10/17, lungs. Followed by Dr. Kaiser, on FOLFIRI chemo tx - leucovirin, fluorouracil, irinotecan. Last chemo 1 month ago, last radiation 1 wk ago), seizure hx (on Keppra), on dexamethasone taper 4mg currently, hypothyroidism, who presents to the ED with raised skin lesions over the past three weeks. Pt admitted to med-surg for dermatitis, skin lesions possibly 2/2 chemo side effect. Pt c/o pain and decr rom in right shoulder. Pain has been for the past 3 months without any injury/ trauma. Pt notes to have numbness/tingling at times in right arm. a/p- Right shoulder RC arthropathy vs mets Shoulder does not appear septic at this time( full passive ROM, minimal tenderness, no erythema or effusion) Bone scan was ordered If + bone scan, would recommend MRI PT eval ROM exercises pain control will follow d/w Dr. Armenta
[2017-09-11] MEDS: oxyCODONE HCL 5 MG TABLET PO PRN ×2 (09:03→14:37)
[2017-09-11] MEDS: levETIRAcetam 500 MG TABLET (FP) PO SCH ×2 (09:03→22:29)
[2017-09-11] MEDS: ENALAPRIL MALEATE 10 MG TABLET (FP) PO SCH (09:03)
[2017-09-11 09:33] LABS: ACANTHOCYTES 0; ANISOCYTOSIS 0; HELMET CELLS 0; HOWELL-JOLLY BODIES 0; MACROCYTOSIS 0; OVALOCYTE 0; PLATELET ESTIMATE DECREASED; ROULEAU 0; SICKELED CELLS 0; TARGET CELLS 0; TEAR DROP CELLS 0; TOXIC GRANULATION 0
[2017-09-11] MEDS ORDERED: DAPTOMYCIN 750 MG in SODIUM CHLORIDE 100 ML IVPB SCH (10:00)
[2017-09-11] MEDS ORDERED: POLYETHYLENE GLYCOL 3350 119 GM BTL PO SCH (10:00)
[2017-09-11] MEDS: LIDOCAINE 5% TOPICAL PATCH TP SCH (10:21)
--- NOTE | 2017-09-11 11:04 | PN ---
Progress Note (short form) - Note Progress Note: Patient seen and examined. s/p POrt removal Have a central line ( Left neck) Pain in the rt shoulder a little better; Seen by Ortho Last Vital Signs Temp Pulse Resp BP Pulse Ox 98 F 84 18 152/82 97 09/11/17 09:00 09/11/17 09:00 09/11/17 09:00 09/11/17 09:00 09/11/17 09:00 CBC, BMP 09/11/17 06:00 09/11/17 06:00 Current Medications Generic Name Dose Route Start Last Admin Trade Name Freq PRN Reason Stop Dose Admin Dexamethasone 4 mg 09/10/17 22:00 09/11/17 06:37 Decadron - PO 4 mg TID DIAN Administration Docusate Sodium 100 mg 09/10/17 14:43 Colace - PO Q8H PRN CONSTIPATION Enalapril Maleate 20 mg 09/11/17 10:00 09/11/17 09:03 Vasotec - PO 20 mg DAILY DIAN Administration Fentanyl 1 patch 09/12/17 18:00 Duragesic 25mcg Patch - TD 09/16/17 17:59 Q72H DIAN IV Flush 4 ml 09/10/17 14:43 Triple Lumen Flush IVPUSH PRN PRN Protocol Daptomycin 750 mg/ Sodium 100 mls @ 50 mls/hr 09/10/17 17:00 09/10/17 16:49 Chloride IVPB 50 mls/hr Q24H DIAN Administration Protocol Insulin Aspart 1 vial 09/10/17 16:30 09/11/17 06:38 Novolog Vial Sliding Scale - SQ 6 units ACHS DIAN Administration Protocol Levetiracetam 500 mg 09/10/17 22:00 09/11/17 09:03 Keppra - PO 500 mg BID DIAN Administration Levothyroxine Sodium 150 mcg 09/11/17 07:00 09/11/17 06:37 Synthroid - PO 150 mcg DAILY@0700 DIAN Administration Lidocaine 1 patch 09/11/17 10:00 09/11/17 10:21 Lidoderm Patch - TP 1 patch DAILY DIAN Administration Miscellaneous 1 each 09/10/17 14:43 Duragesic Patch Waste TD PRN PRN PAIN Miscellaneous 1 each 09/10/17 22:00 09/10/17 22:43 Lidoderm Patch Removal MC Not Given DAILY@2200 [facility] Mupirocin 1 applic 09/10/17 22:00 09/11/17 06:37 Bactroban 2% Cream - TP 1 applic TID DIAN Administration Ondansetron HCl 4 mg 09/10/17 14:38 Zofran Injection IVPUSH Q6H PRN NAUSEA AND/OR VOMITING Oxycodone HCl 5 mg 09/10/17 14:43 09/11/17 09:03 Roxicodone - PO 5 mg Q4H PRN Administration PAIN LEVEL 6-10 Polyethylene Glycol 17 gm 09/10/17 17:23 Miralax (For Daily Use) - PO DAILY [facility] Metastatic colon ca [employer] TO [employer] mets- s/p Gamma knife Staph bacteremia Cutaneous lesions?? staph Musculoskeletal pains ? staph, ? mets- Anemia Thrombocytopenia Plan: Antibiotics per ID Bone scan , done today Continue to monitor chems, sugars, and CBC PT Taper decadron to 8 mg on 08/15
[2017-09-11] MEDS ORDERED: INSULIN DETEMIR 100 UNITS/ML MDV SQ ONE ×2 (11:45→14:25)
--- NOTE | 2017-09-11 11:50 | PN ---
Progress Note, Physician History of Present Illness: Remains afebrile, POD #1 - s/p I&D of back abscess/removal of port. - Current Medication List Current Medications: Active Medications Dexamethasone (Decadron -) 4 mg PO TID [facility] Last Admin: 09/11/17 06:37 Dose: 4 mg Docusate Sodium (Colace -) 100 mg PO Q8H PRN PRN Reason: CONSTIPATION Enalapril Maleate (Vasotec -) 20 mg PO DAILY [facility] Last Admin: 09/11/17 09:03 Dose: 20 mg Fentanyl (Duragesic 25mcg Patch -) 1 patch TD Q72H [facility] Stop: 09/16/17 17:59 IV Flush (Triple Lumen Flush) 4 ml IVPUSH PRN PRN PRN Reason: Protocol Daptomycin 750 mg/ Sodium (Chloride) 100 mls @ 50 mls/hr IVPB Q24H [facility] PRN Reason: Protocol Last Admin: 09/10/17 16:49 Dose: 50 mls/hr Insulin Aspart (Novolog Vial Sliding Scale -) 1 vial SQ ACHS [facility] PRN Reason: Protocol Last Admin: 09/11/17 06:38 Dose: 6 units Insulin Detemir (Levemir Vial) 10 units SQ ONCE ONE Stop: 09/11/17 11:46 Insulin Detemir (Levemir Vial) 10 units SQ [facility] Levetiracetam (Keppra -) 500 mg PO BID [facility] Last Admin: 09/11/17 09:03 Dose: 500 mg Levothyroxine Sodium (Synthroid -) 150 mcg PO DAILY@0700 [facility] Last Admin: 09/11/17 06:37 Dose: 150 mcg Lidocaine (Lidoderm Patch -) 1 patch TP DAILY [facility] Last Admin: 09/11/17 10:21 Dose: 1 patch Miscellaneous (Duragesic Patch Waste) 1 each TD PRN PRN PRN Reason: PAIN Miscellaneous (Lidoderm Patch Removal) 1 each MC DAILY@2200 [facility] Last Admin: 09/10/17 22:43 Dose: Not Given Mupirocin (Bactroban 2% Cream -) 1 applic TP TID [facility] Last Admin: 09/11/17 06:37 Dose: 1 applic Ondansetron HCl (Zofran Injection) 4 mg IVPUSH Q6H PRN PRN Reason: NAUSEA AND/OR VOMITING Oxycodone HCl (Roxicodone -) 5 mg PO Q4H PRN PRN Reason: PAIN LEVEL 6-10 Last Admin: 09/11/17 09:03 Dose: 5 mg Polyethylene Glycol (Miralax (For Daily Use) -) 17 gm PO DAILY DIAN - Objective Vital Signs: Vital Signs Temperature 98 F 09/11/17 09:00 Pulse Rate 84 09/11/17 09:00 Respiratory Rate 18 09/11/17 09:00 Blood Pressure 152/82 09/11/17 09:00 O2 Sat by Pulse Oximetry (%) 97 09/11/17 09:00 Constitutional: Yes: No Distress, Calm Neck: Yes: Supple Cardiovascular: Yes: Regular Rate and Rhythm Respiratory: Yes: Regular, Diminished, On Nasal O2 Gastrointestinal: Yes: Normal Bowel Sounds, Soft, Abdomen, Obese Edema: No Labs: CBC, BMP 09/11/17 06:00 09/11/17 06:00 INR, PTT INR 1.07 (0.82-1.09) 09/07/17 17:38 Problem List - Problems (1) MRSA bacteremia Code(s): R78.81 - BACTEREMIA (2) Colon cancer metastasized to multiple sites Code(s): C18.9 - MALIGNANT NEOPLASM OF COLON, UNSPECIFIED (3) Brain metastases Code(s): C79.31 - SECONDARY MALIGNANT NEOPLASM OF BRAIN (4) Hypothyroidism Code(s): E03.9 - HYPOTHYROIDISM, UNSPECIFIED Qualifiers: Hypothyroidism type: unspecified Qualified Code(s): E03.9 - Hypothyroidism , unspecified Assessment/Plan 1. MRSA bacteremia suspect line sepsis POD #1 - s/p I&D of back abscess/removal of port 2. Furuncles s/p I&D 3. Metastatic colon cancer to lungs and brain post chemotherapy 4. Type 2 DM 5- HTN 6. Hypothyroidism P:1. Daptomycin and observe for blood culture clearance post port removal, if MRSA bacteremia persists then would consider DIANA to exclude endocarditis 2. Continue Vasotec 20 qd, course of steroids with GI protection, seizure prophylaxis 3. Mechanical DVT prophylaxis, thank you for consultative opportunity
--- NOTE | 2017-09-11 14:00 | PN ---
Progress Note, Physician Chief Complaint: ID Daptomycin day 1 along wit dexamethasone - Current Medication List Current Medications: Active Medications Dexamethasone (Decadron -) 4 mg PO TID [facility] Last Admin: 09/11/17 06:37 Dose: 4 mg Docusate Sodium (Colace -) 100 mg PO Q8H PRN PRN Reason: CONSTIPATION Enalapril Maleate (Vasotec -) 20 mg PO DAILY [facility] Last Admin: 09/11/17 09:03 Dose: 20 mg Fentanyl (Duragesic 25mcg Patch -) 1 patch TD Q72H [facility] Stop: 09/16/17 17:59 IV Flush (Triple Lumen Flush) 4 ml IVPUSH PRN PRN PRN Reason: Protocol Daptomycin 750 mg/ Sodium (Chloride) 100 mls @ 50 mls/hr IVPB Q24H [facility] PRN Reason: Protocol Last Admin: 09/10/17 16:49 Dose: 50 mls/hr Insulin Aspart (Novolog Vial Sliding Scale -) 1 vial SQ ACHS [facility] PRN Reason: Protocol Last Admin: 09/11/17 11:58 Dose: 8 units Insulin Detemir (Levemir Vial) 10 units SQ [facility] Levetiracetam (Keppra -) 500 mg PO BID [facility] Last Admin: 09/11/17 09:03 Dose: 500 mg Levothyroxine Sodium (Synthroid -) 150 mcg PO DAILY@0700 [facility] Last Admin: 09/11/17 06:37 Dose: 150 mcg Lidocaine (Lidoderm Patch -) 1 patch TP DAILY [facility] Last Admin: 09/11/17 10:21 Dose: 1 patch Miscellaneous (Duragesic Patch Waste) 1 each TD PRN PRN PRN Reason: PAIN Miscellaneous (Lidoderm Patch Removal) 1 each MC DAILY@2200 [facility] Last Admin: 09/10/17 22:43 Dose: Not Given Mupirocin (Bactroban 2% Cream -) 1 applic TP TID [facility] Last Admin: 09/11/17 06:37 Dose: 1 applic Ondansetron HCl (Zofran Injection) 4 mg IVPUSH Q6H PRN PRN Reason: NAUSEA AND/OR VOMITING Oxycodone HCl (Roxicodone -) 5 mg PO Q4H PRN PRN Reason: PAIN LEVEL 6-10 Last Admin: 09/11/17 09:03 Dose: 5 mg Polyethylene Glycol (Miralax (For Daily Use) -) 17 gm PO DAILY DIAN - Objective Vital Signs: Vital Signs Temperature 98 F 09/11/17 09:00 Pulse Rate 84 09/11/17 09:00 Respiratory Rate 18 09/11/17 09:00 Blood Pressure 152/82 09/11/17 09:00 O2 Sat by Pulse Oximetry (%) 97 09/11/17 09:00 Constitutional: Yes: No Distress Cardiovascular: Yes: S1, S2 Respiratory: Yes: WNL, Regular, CTA Bilaterally Gastrointestinal: Yes: Soft. No: Tenderness Integumentary: Yes: Other (abscesses) Labs: CBC, BMP 09/11/17 06:00 09/11/17 06:00 INR, PTT INR 1.07 (0.82-1.09) 09/07/17 17:38 Problem List - Problems (1) Pyogenic skin abscess due to bacteria Code(s): L02.91 - CUTANEOUS ABSCESS, UNSPECIFIED; B96.89 - OTH BACTERIAL AGENTS THE CAUSE OF DISEASES CLASSD ELSWHR (2) Colon cancer metastasized to multiple sites Code(s): C18.9 - MALIGNANT NEOPLASM OF COLON, UNSPECIFIED (3) MRSA bacteremia Code(s): R78.81 - BACTEREMIA Assessment/Plan Microbiology 09/07/17 17:38 Blood - Peripheral Venous Blood Culture - Final Presumptive Mrsa (Pbp2a Pos) 09/07/17 17:38 Blood - Peripheral Venous Blood Culture - Final Mr S Aureus 09/09/17 06:00 Blood - Peripheral Venous Blood Culture - Preliminary Presumptive Mrsa (Pbp2a Pos) 09/09/17 06:00 Blood - Peripheral Venous Blood Culture - Preliminary Presumptive Mrsa (Pbp2a Pos) Laboratory Tests 09/11/17 06:00 WBC 6.9 Hgb 9.8 L Hct 28.6 L Plt Count 111 L Assessment Metastatic cancer brain mets Persistant bacteremia MRSA Skin abscesses MRSA Plan Bone scan ordered Continue Daptomycin Repeat blood cultures Ishan SUÁREZ
--- NOTE | 2017-09-11 14:25 | PN ---
Physical Exam: SUBJECTIVE: Patient seen and examined No acute events overnight. No current complaints other than constipation, right shoulder pain, and LLE pain. Denies fevers, chills. OBJECTIVE: Vital Signs Period Temp Pulse Resp BP Sys/[place] Pulse Ox Last 24 Hr 97.7 F-98.2 F 54-84 16-20 124-175/70-91 97-99 GENERAL: Awake, alert, and fully oriented. No acute distress. HEAD: +scattered bleeding, excorciated lesions on face with 1 on left forehead draining pus. EYES: Pupils equal, round and reactive to light, extraocular movements intact, sclera anicteric, conjunctiva clear. EARS, NOSE, THROAT: Oropharynx clear without exudates. Moist mucous membranes. NECK: Normal range of motion, supple, L TLC CHEST: Gauze over chemoport LUNGS: Breath sounds equal, clear to auscultation bilaterally. No wheezes, and no crackles. No accessory muscle use. HEART: Regular rate and rhythm, normal S1 and S2 without murmur, rub or gallop. ABDOMEN: Soft, obese, nontender, not distended, normoactive bowel sounds, no guarding, no rebound, no masses. MUSCULOSKELETAL: +TTP R shoulder with limited active and passive ROM. LOWER EXTREMITIES: 2+ posterior tibial pulses, warm, well-perfused. +LLE calf tenderness NEUROLOGICAL: Cranial nerves II-XII intact. Right arm extension 2/5. Shoulder abduction 1/5. 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 Decreased ROM of right shoulder. SKIN: +scattered ulcerative nodules throughout body (face, arms, back, legs) with few purulent draining furuncles. Laboratory Results - last 24 hr 09/10/17 09/10/17 09/11/17 15:58 21:35 06:00 WBC 6.9 RBC 3.25 L Hgb 9.8 L Hct 28.6 L MCV 88.0 MCH 30.1 MCHC 34.2 RDW 18.6 H Plt Count 111 L MPV 8.0 Neutrophils % [place] Neutrophils % (Manual) 86.7 H Band Neutrophils % 2.0 Lymphocytes % [place] Lymphocytes % (Manual) 4.1 L Monocytes % [place] Monocytes % (Manual) 3 L Eosinophils % [place] Eosinophils % (Manual) 0.0 Basophils % [place] Basophils % (Manual) 0.0 Myelocytes % (Man) 3 H D Promyelocytes % (Man) 0 D Blast Cells % (Manual) 0 Nucleated RBC % 0 Metamyelocytes 1 D Hypochromia 0 Toxic Granulation 0 Dohle Bodies 0 Platelet Estimate Decreased Polychromasia 0 Poikilocytosis 0 Basophilic Stippling 0 Anisocytosis 0 Microcytosis 0 Macrocytosis 0 Spherocytes 0 Sickle Cells 0 Target Cells 0 Tear Drop Cells 0 Ovalocytes 0 Stomatocytes 0 Helmet Cells 0 [place] Bodies 0 [place] Rings 0 Alec Cells 0 Acanthocytes (Spur) 0 Rouleaux 0 Fragmented RBCs 0 Schistocytes 0 Sodium Potassium Chloride Carbon Dioxide Anion Gap BUN Creatinine POC Glucometer 176 351 Random Glucose Calcium 09/11/17 09/11/17 09/11/17 06:00 06:36 11:30 WBC RBC Hgb Hct MCV MCH MCHC RDW Plt Count MPV Neutrophils % Neutrophils % (Manual) Band Neutrophils % Lymphocytes % Lymphocytes % (Manual) Monocytes % Monocytes % (Manual) Eosinophils % Eosinophils % (Manual) Basophils % Basophils % (Manual) Myelocytes % (Man) Promyelocytes % (Man) Blast Cells % (Manual) Nucleated RBC % Metamyelocytes Hypochromia Toxic Granulation Dohle Bodies Platelet Estimate Polychromasia Poikilocytosis Basophilic Stippling Anisocytosis Microcytosis Macrocytosis Spherocytes Sickle Cells Target Cells Tear Drop Cells Ovalocytes Stomatocytes Helmet Cells [place] Bodies [place] Rings Larue Cells Acanthocytes (Spur) Rouleaux Fragmented RBCs Schistocytes Sodium 135 L Potassium 4.4 Chloride 98 Carbon Dioxide 26 Anion Gap 11 BUN 23 H Creatinine 0.6 POC Glucometer 258 319 Random Glucose 246 H Calcium 7.8 L Active Medications Generic Name Dose Route Start Last Admin Trade Name Freq PRN Reason Stop Dose Admin Dexamethasone 4 mg 09/10/17 22:00 09/11/17 06:37 Decadron - PO 4 mg TID DIAN Administration Docusate Sodium 100 mg 09/10/17 14:43 Colace - PO Q8H PRN CONSTIPATION Enalapril Maleate 20 mg 09/11/17 10:00 09/11/17 09:03 Vasotec - PO 20 mg DAILY DIAN Administration Fentanyl 1 patch 09/12/17 18:00 Duragesic 25mcg Patch - TD 09/16/17 17:59 Q72H DIAN IV Flush 4 ml 09/10/17 14:43 Triple Lumen Flush IVPUSH PRN PRN Protocol Daptomycin 750 mg/ Sodium 100 mls @ 50 mls/hr 09/10/17 17:00 09/10/17 16:49 Chloride IVPB 50 mls/hr Q24H DIAN Administration Protocol Insulin Aspart 1 vial 09/10/17 16:30 09/11/17 11:58 Novolog Vial Sliding Scale - SQ 8 units ACHS [facility] Administration Protocol Insulin Detemir 10 units 09/12/17 22:00 Levemir Vial SQ HS [facility] Levetiracetam 500 mg 09/10/17 22:00 09/11/17 09:03 Keppra - PO 500 mg BID DIAN Administration Levothyroxine Sodium 150 mcg 09/11/17 07:00 09/11/17 06:37 Synthroid - PO 150 mcg DAILY@0700 [facility] Administration Lidocaine 1 patch 09/11/17 10:00 09/11/17 10:21 Lidoderm Patch - TP 1 patch DAILY [facility] Administration Miscellaneous 1 each 09/10/17 14:43 Duragesic Patch Waste TD PRN PRN PAIN Miscellaneous 1 each 09/10/17 22:00 09/10/17 22:43 Lidoderm Patch Removal MC Not Given DAILY@2200 [facility] Mupirocin 1 applic 09/10/17 22:00 09/11/17 06:37 Bactroban 2% Cream - TP 1 applic TID [facility]AN Administration Ondansetron HCl 4 mg 09/10/17 14:38 Zofran Injection IVPUSH Q6H PRN NAUSEA AND/OR VOMITING Oxycodone HCl 5 mg 09/10/17 14:43 09/11/17 09:03 Roxicodone - PO 5 mg Q4H PRN Administration PAIN LEVEL 6-10 Polyethylene Glycol 17 gm 09/10/17 17:23 Miralax (For Daily Use) - PO DAILY [facility] ASSESSMENT/PLAN: 61 y/o F with PMH HTN, metastatic colon CA (to brain 07/10/17, lungs. Followed by Dr. Kaiser, on FOLFIRI chemo tx - leucovirin, fluorouracil, irinotecan. Last chemo in June, last radiation 1 wk ago), seizure hx (on Keppra), on dexamethasone taper 4mg currently, hypothyroidism, who presented with raised skin lesions and decreased ambulation over the past three weeks. #Skin lesions and bacteremia -Currently not septic -Immunocompromised, on chemo and dexamethasone. -Echocardiogram-- no evidence of mass/vegitation. cannot rule out endocarditis. -Serum cryptococcal antigen, urine histoplamsa antigen, viral culture of skin lesions pending -Biopsy of skin lesions obtained -ID consult- Dr. Chang -Derm consult- Dr. Atkins -Heme onc consult- Dr. Kaiser -BCX + x3. Wound cx positive as well with MRSA, group d strep, and non lactose fermenting gnb. (1st bcx mrsa, 2nd mrsa, 3rd mrsa) -Lidocaine patch, Fentanyl patch, and oxycodone 5 q4h prn for pain control -Portacath removed today and central venous access placed -Continue Daptomycin 750 mg daily today, will get repeat bcx today -Ortho consult, no suspicion for septic joint -Cardiology consult for DIANA, Dr. Lin. Will hold off on DIANA until Friday unless patient continues to be bacteremic without port -Repeat BCx -F/u Bone scan, if positive will get MRI #metastatic colon CA (to brain, lungs) -on FOLFIRI chemo tx - leucovorin, fluorouracil, irinotecan -last chemo in June, last radiation 1 wk ago -chemoport intact, without erythema -continue dexamethasone taper 4mg TID, on Friday will change to 4mg BID -Heme onc consult - Dr. Kaiser -No need for chemotherapy right now -Palliative consult pending #Hyperglycemia likely 2/2 steroids, uncontrolled -BGM ACHS -ISS ACHS -A1c 8.9 -Start levemir 10 sq hs #Seizure hx, with brain mets -Continue Keppra 500 mg BID #HTN- -Continue Enalapril 20mg PO qd #Hypothyroidism -Continue levothyroxine 150 mcg PO qd #F/E/N -Continue to monitor electrolytes -Diabetic, Na controlled diet #PPX SCD's Patient is now DNI. Visit type - Emergency Visit Emergency Visit: Yes ED Registration Date: 09/07/17 Care time: The patient presented to the Emergency Department on the above date and was hospitalized for further evaluation of their emergent condition. - New Patient This patient is new to me today: No - Critical Care Critical Care patient: No
--- NOTE | 2017-09-11 15:44 | PN ---
Progress Note (short form) - Note Progress Note: surgery POD #1 right chest port removal and I&D of back abscess. Patient seen and examined at bedside with no complaints. Her son was present for entire exam. Nursing states comfortable overnight Vital Signs Temp 97.8 F 09/11/17 15:33 Pulse 82 09/11/17 15:33 Resp 18 09/11/17 15:33 BP 129/77 09/11/17 15:33 Pulse Ox 97 09/11/17 09:00 Intake & Output 09/10/17 09/11/17 09/11/17 23:59 11:59 23:59 Intake Total 750 200 Output Total 10 Balance 740 200 Intake: IV 450 IVPB 300 Oral 200 Output: Estimated Blood Loss 10 Other: Voiding Method Incontinent Incontinent CBC, BMP 09/11/17 06:00 09/11/17 06:00 PE: A&Ox3, NAD unlabored resp on RA Right chest port site dressing c/d/i with no evidence of d/c. surrounding tissue intact with no tracking erythema. Back incision, thoracic spine paraveterbral, Incision c/d with no active d/c or bleeding. surrounding tissue intact without tracking erythema. repacked with wet gauze soaked in NS. dry dressing on top. Problem List - Problems (1) Pyogenic skin abscess due to bacteria Assessment/Plan: s/p I&D back and right chest port removal patient doing well. Plan: 1) continue daily packing with iodoform 2) pain control 3) abx per ID 4) linda to be removed 7-10 days post-op Code(s): L02.91 - CUTANEOUS ABSCESS, UNSPECIFIED; B96.89 - OTH BACTERIAL AGENTS THE CAUSE OF DISEASES CLASSD ELSWHR
[2017-09-11] MEDS: POLYETHYLENE GLYCOL 3350 119 GM BTL PO SCH (16:45)
[2017-09-11] MEDS: DAPTOMYCIN 750 MG in SODIUM CHLORIDE 100 ML IVPB SCH (16:45)
--- NOTE | 2017-09-11 18:42 | PN ---
Teaching Attending Note Name of Resident: Burke Vuong ATTENDING PHYSICIAN STATEMENT I saw and evaluated the patient. I reviewed the resident's note and discussed the case with the resident. I agree with the resident's findings and plan as documented. SUBJECTIVE: no fever or chills. R shoulder pain, slightly better . constipated OBJECTIVE: NAD, Awake and cooperative CV: RRR, no mRG Lungs : CTAB Ext: no edema no foot ulcers Skin , multiple lesions with different stages , erythema, pus filled vesicles, scabbed lesions, and ulcerated indurated areas . ( face, trunk, buttocks , extremities) surgical dressing on Lower back , dressing on R port . L central line in neck . MS : limited range of motion of R shoulder ( abduct to 90 degrees. ) , tenderness to palpation over shoulder , no erythema ASSESSMENT AND PLAN: Very unfortunate 61 y/o lady with h/o met colon cancer to lungs and brain , s/p chemo , and other medical problems who presented with skin lesions and was found to have MRSA bacteremia. 1- MRSA bacteremia: source could be the port , but also could be the skin infected skin lesions. - cont Dapto - repeat blood cx - if no clearance, then DIANA. d/w Dr. Jo today. - appreciate otrho input, no suspicion for septic joint. 2- Infected Skin lesions : - Bx showed inflammatory/infectious etiology. with Neg Af[employer] - cont Abx -wound cx with 3 organisms including MRSA,. additional cx sent form OR 3- New diagnosis of diabetes. - cont SSI, - ad levemir . sugar in 300 range 4- Metastatic colon cancer: - cont decadron taper. decrease to 4 BId tomorrow - palliative care consult - Bone scan noted, check rays of L femur and tibia 5- R shoulder pain: Bone scan Neg in that area . no suspicion for septic joint per ortho if pain and restriction of movement continue at same degree might get MRI of shoulder 5- HTN: cont enalapril Code status : DNI . Not DNR palliative care consult
[2017-09-11] MEDS ORDERED: DEXAMETHASONE 4 MG TABLET (FP) PO ONE (22:00)
[2017-09-11] MEDS: LIDOCAINE PATCH REMOVAL MC SCH (22:32)
[2017-09-12] MEDS: MUPIROCIN CA 2% TOPICAL CREAM 15 GM TUBE TP SCH ×3 (05:52→23:12)
[2017-09-12] MEDS: INSULIN SLIDING SCALE (NOVOLOG) 1 VIAL SQ SCH ×4 (06:30→23:11)
[2017-09-12] MEDS: LEVOTHYROXINE NA 150 MCG TABLET PO SCH (06:31)
[2017-09-12] MEDS: TRIPLE LUMEN FLUSH 4 ML ML IVPUSH PRN ×2 (07:38→17:06)
[2017-09-12 07:53] LABS: HEMATOCRIT 27.2 % (32.4-45.2); HEMOGLOBIN 9.1 GM/dL (10.7-15.3); MCH 29.8 pg (25.7-33.7); MCHC 33.6 g/dl (32.0-36.0); MEAN CELL VOLUME 88.7 fl (80-96); MEAN PLT VOLUME 8.6 fl (7.5-11.1); PLATELET COUNT 123 K/MM3 (134-434); RBC 3.07 M/mm3 (3.60-5.2); RDW 18.6 % (11.6-15.6)
[2017-09-12 08:49] LABS: PLATELET ESTIMATE SLT DECREASE
[2017-09-12 08:55] LABS: CHLORIDE 100 mmol/L (98-107); POTASSIUM 4.1 mmol/L (3.5-5.1); SODIUM 133 mmol/L (136-145)
[2017-09-12 09:04] LABS: ANION GAP 8 (8-16); BLOOD UREA NITROGEN 24 mg/dL (7-18); CALCIUM 7.9 mg/dL (8.5-10.1); CO2 25 mmol/L (21-32); CREATININE 0.4 mg/dL (0.55-1.02); GLUCOSE,RANDOM 211 mg/dL (74-106)
--- NOTE | 2017-09-12 09:15 | PN ---
Progress Note (short form) - Note Progress Note: alert port removed 09/10 shoulder pain much improved now with left leg pain Vital Signs Period Temp Pulse Resp BP Sys/[place] Pulse Ox Last 24 Hr 97.7 F-98.3 F 63-82 18-20 129-148/63-79 98 skin ulcers unchanged-some pustules no conjunctival hemorrhages dressing left CW, Right CW central line cor-rrr lungs clear abd soft,nt ext no edema pain left leg CBC, BMP 09/12/17 06:30 09/12/17 06:30 Microbiology 09/08/17 11:18 Serum Cryptococcal Antigen - Final 09/08/17 12:30 Blood - Sakshi Cath Blood Culture - Final Presumptive Mrsa (Pbp2a Pos) 09/08/17 11:25 Blood - Sakshi Cath Blood Culture - Final S Aureus 09/07/17 Unknown Back Gram Stain - Final 09/07/17 Unknown Back Wound Culture - Preliminary Proteus Mirabilis S Aureus Group D Strep Or Entero Coccus 09/09/17 06:00 Blood - Peripheral Venous Blood Culture - Preliminary Presumptive Mrsa (Pbp2a Pos) 09/09/17 06:00 Blood - Peripheral Venous Blood Culture - Preliminary Presumptive Mrsa (Pbp2a Pos) 09/07/17 17:38 Blood - Peripheral Venous Blood Culture - Final Presumptive Mrsa (Pbp2a Pos) 09/07/17 17:38 Blood - Peripheral Venous Blood Culture - Final S Aureus 09/08/17 11:00 Wound Viral Culture - Preliminary a/p mrsa bacteremia-port removed yesterday port infecion skin lesions- likely staph- biopsy pending will send culture repeat blood cultures pending after port removal (sent) continue daptomycin penicillin allergy rash and itching positive bone scan left femur- will order xray metastatic colon cancer -on decadron for brain lesion thrombocytopenia- suspect secondary to infection-improved overall prognosis is poor Problem List - Problems (1) Bacteremia Code(s): R78.81 - BACTEREMIA (2) Skin lesions, generalized Code(s): L98.9 - DISORDER OF THE SKIN AND SUBCUTANEOUS TISSUE, UNSPECIFIED (3) Colon cancer metastasized to multiple sites Code(s): C18.9 - MALIGNANT NEOPLASM OF COLON, UNSPECIFIED
--- NOTE | 2017-09-12 09:21 | PATH ---
Surgical Pathology Report Patient Name: BHUPENDRA MCMILLAN Med. Rec. #: [id number] /Age/Gender: 1955 (Age: 61) / F Account: [id number] Location: [facility] MED/SURG Taken: 09/10/2017 Received: 09/11/2017 Reported: 09/12/2017 Physicians: MD Odessa Peralta M.D. 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 Electronically Signed Brad Royal M.D. Gross Description Received fresh labeled "removed Port-A-Cath," is a 2.6 x 2.4 x 1.2 cm purple, triangular device, consistent with a port. The port displays a 26 cm in length portion of white tubing extending from one aspect. The port has the following inscription: "BARD [id number]." No soft tissue is present. No sections are submitted, gross only. /09/11/2017 saudi/09/11/2017
[2017-09-12] MEDS: ENALAPRIL MALEATE 10 MG TABLET (FP) PO SCH (11:06)
[2017-09-12] MEDS: LIDOCAINE 5% TOPICAL PATCH TP SCH (11:06)
[2017-09-12] MEDS: DEXAMETHASONE 4 MG TABLET (FP) PO SCH ×2 (11:06→23:13)
[2017-09-12] MEDS: levETIRAcetam 500 MG TABLET (FP) PO SCH ×2 (11:06→23:13)
[2017-09-12] MEDS: POLYETHYLENE GLYCOL 3350 119 GM BTL PO SCH (11:07)
--- NOTE | 2017-09-12 12:31 | PN ---
Progress Note (short form) - Note Progress Note: Ortho Pt seen and examined c/o pain in right shoulder and Left LE PE- right shoulder- mild ttp, limited active ROM but full passive ROM, nvi left hip, femur- + ttp, decr rom, nvi bone scan + for possible mets to left femur and tibia a/p xrays of left femur and tibia ordered right shoulder- ROM exercises, PT eval heme/onc f/u d/w Dr. Armenta
--- NOTE | 2017-09-12 12:53 | PN ---
Progress Note (short form) - Note Progress Note: Patient seen and examined Complains of pains in right shoulder and distal right lower extremity. Bone scan with uptake in femur and tibia on left ; Right shoulder without significant uptake Last Vital Signs Temp Pulse Resp BP Pulse Ox 97.7 F 78 18 129/63 98 09/12/17 08:59 09/12/17 08:59 09/12/17 08:59 09/12/17 08:59 09/11/17 21:00 HEENT: BETSY, EOM Intact Oropharynx: No thrush, No mucositis or: RSR, No murmurs, No gallops Lungs diminished breath , rales bilaterally Abd: Soft, Normal bowel sounds, ventral hernia Ext:No significant edema Skin: cutaneous lesion , scabbing CBC, BMP 09/12/17 06:30 09/12/17 06:30 Current Medications Generic Name Dose Route Start Last Admin Trade Name Freq PRN Reason Stop Dose Admin Dexamethasone 4 mg 09/12/17 10:00 09/12/17 11:06 Decadron - PO 4 mg BID DIAN Administration Docusate Sodium 100 mg 09/10/17 14:43 Colace - PO Q8H PRN CONSTIPATION Enalapril Maleate 20 mg 09/11/17 10:00 09/12/17 11:06 Vasotec - PO 20 mg DAILY DIAN Administration Fentanyl 1 patch 09/12/17 18:00 Duragesic 25mcg Patch - TD 09/16/17 17:59 Q72H DIAN IV Flush 4 ml 09/10/17 14:43 09/12/17 07:38 Triple Lumen Flush IVPUSH 4 ml PRN PRN Administration Protocol Daptomycin 750 mg/ Sodium 100 mls @ 50 mls/hr 09/10/17 17:00 09/11/17 16:45 Chloride IVPB 50 mls/hr Q24H DIAN Administration Protocol Insulin Aspart 1 vial 09/10/17 16:30 09/12/17 12:57 Novolog Vial Sliding Scale - SQ 6 units ACHS DIAN Administration Protocol Insulin Detemir 10 units 09/12/17 22:00 Levemir Vial SQ HS DIAN Levetiracetam 500 mg 09/10/17 22:00 09/12/17 11:06 Keppra - PO 500 mg BID DIAN Administration Levothyroxine Sodium 150 mcg 09/11/17 07:00 09/12/17 06:31 Synthroid - PO 150 mcg DAILY@0700 DIAN Administration Lidocaine 1 patch 09/11/17 10:00 09/12/17 11:06 Lidoderm Patch - TP 1 patch DAILY DIAN Administration Miscellaneous 1 each 09/10/17 14:43 Duragesic Patch Waste TD PRN PRN PAIN Miscellaneous 1 each 09/10/17 22:00 09/11/17 22:32 Lidoderm Patch Removal MC 1 each DAILY@2200 DIAN Administration Mupirocin 1 applic 09/10/17 22:00 09/12/17 05:52 Bactroban 2% Cream - TP 1 applic TID DIAN Administration Ondansetron HCl 4 mg 09/10/17 14:38 Zofran Injection IVPUSH Q6H PRN NAUSEA AND/OR VOMITING Oxycodone HCl 5 mg 09/10/17 14:43 09/12/17 12:55 Roxicodone - PO 5 mg Q4H PRN Administration PAIN LEVEL 6-10 Polyethylene Glycol 17 gm 09/10/17 17:23 09/12/17 11:07 Miralax (For Daily Use) - PO 17 grams DAILY DIAN Administration Microbiology 09/07/17 Unknown Back Gram Stain - Final 09/07/17 Unknown Back Wound Culture - Final Proteus Mirabilis Mr S Aureus Enterococcus Faecalis 09/09/17 06:00 Blood - Peripheral Venous Blood Culture - Final Presumptive Mrsa (Pbp2a Pos) 09/09/17 06:00 Blood - Peripheral Venous Blood Culture - Final Mr S Aureus 09/08/17 11:18 Serum Cryptococcal Antigen - Final 09/08/17 12:30 Blood - Sakshi Cath Blood Culture - Final Presumptive Mrsa (Pbp2a Pos) 09/08/17 11:25 Blood - Sakshi Cath Blood Culture - Final Mr S Aureus Impression: Metastatic colon ca - MRSA septicemia Port infection Anemia Likely bone mets - left femur and tibia Cutaneous lesions- likely septic emboli Awaiting x-rays of left femur Antibiotics per ID Taper of decadcron ( decrease decadron to 6 mg -->2 mg q8h on 09/15 If patient will be in hospital for some time , would consider possible short fractionation RT to left tibia and femur pending x-rays.
[2017-09-12] MEDS: oxyCODONE HCL 5 MG TABLET PO PRN ×2 (12:55→18:25)
--- NOTE | 2017-09-12 13:07 | PN ---
Physical Exam: SUBJECTIVE: Patient seen and examined No acute events overnight. Shoulder pain has improved. LLE pain still present. Denies fevers, chills. OBJECTIVE: Vital Signs Period Temp Pulse Resp BP Sys/[place] Pulse Ox Last 24 Hr 97.7 F-98.3 F 63-82 18-20 129-148/63-79 98 GENERAL: Awake, alert, and fully oriented. No acute distress. HEAD: +scattered bleeding, excorciated lesions on face with 1 on left forehead draining pus. EYES: Pupils equal, round and reactive to light, extraocular movements intact, sclera anicteric, conjunctiva clear. EARS, NOSE, THROAT: Oropharynx clear without exudates. Moist mucous membranes. NECK: Normal range of motion, supple, L TLC CHEST: Gauze over chemoport LUNGS: Breath sounds equal, clear to auscultation bilaterally. No wheezes, and no crackles. No accessory muscle use. HEART: Regular rate and rhythm, normal S1 and S2 without murmur, rub or gallop. ABDOMEN: Soft, obese, nontender, not distended, normoactive bowel sounds, no guarding, no rebound, no masses. MUSCULOSKELETAL: +TTP R shoulder with limited active and passive ROM. Improving today LOWER EXTREMITIES: 2+ posterior tibial pulses, warm, well-perfused. +LLE calf tenderness NEUROLOGICAL: Cranial nerves II-XII intact. Right arm extension 4/5. Shoulder abduction 4/5. Left arm 5/5 at shoulder, elbow, and hand dispatcher chief oil. Decreased ROM of right shoulder. SKIN: +scattered ulcerative nodules throughout body (face, arms, back, legs) with few purulent draining furuncles. No new lesions Laboratory Results - last 24 hr 09/11/17 09/11/17 09/11/17 14:41 16:29 22:09 WBC RBC Hgb Hct MCV MCH MCHC RDW Plt Count MPV Neutrophils % Neutrophils % (Manual) Band Neutrophils % Lymphocytes % Lymphocytes % (Manual) Monocytes % (Manual) Hypochromia Platelet Estimate Platelet Comment Sodium Potassium Chloride Carbon Dioxide Anion Gap BUN Creatinine POC Glucometer 353 288 295 Random Glucose Calcium 09/12/17 09/12/17 09/12/17 05:51 06:30 06:30 WBC 7.0 RBC 3.07 L Hgb 9.1 L Hct 27.2 L MCV 88.7 MCH 29.8 MCHC 33.6 RDW 18.6 H Plt Count 123 L MPV 8.6 Neutrophils % No Result Required. Neutrophils % (Manual) 76.0 Band Neutrophils % 1.0 Lymphocytes % No Result Required. Lymphocytes % (Manual) 13.0 D Monocytes % (Manual) 10 D Hypochromia 1+ Platelet Estimate Slt decrease Platelet Comment No clotting detected Sodium 133 L Potassium 4.1 Chloride 100 Carbon Dioxide 25 Anion Gap 8 BUN 24 H Creatinine 0.4 L POC Glucometer 211 Random Glucose 211 H Calcium 7.9 L 09/12/17 11:26 WBC RBC Hgb Hct MCV MCH MCHC RDW Plt Count MPV Neutrophils % Neutrophils % (Manual) Band Neutrophils % Lymphocytes % Lymphocytes % (Manual) Monocytes % (Manual) Hypochromia Platelet Estimate Platelet Comment Sodium Potassium Chloride Carbon Dioxide Anion Gap BUN Creatinine POC Glucometer 274 Random Glucose Calcium Active Medications Generic Name Dose Route Start Last Admin Trade Name Freq PRN Reason Stop Dose Admin Dexamethasone 4 mg 09/12/17 10:00 09/12/17 11:06 Decadron - PO 4 mg BID DIAN Administration Docusate Sodium 100 mg 09/10/17 14:43 Colace - PO Q8H PRN CONSTIPATION Enalapril Maleate 20 mg 09/11/17 10:00 09/12/17 11:06 Vasotec - PO 20 mg DAILY DIAN Administration Fentanyl 1 patch 09/12/17 18:00 Duragesic 25mcg Patch - TD 09/16/17 17:59 Q72H DIAN IV Flush 4 ml 09/10/17 14:43 09/12/17 07:38 Triple Lumen Flush IVPUSH 4 ml PRN PRN Administration Protocol Daptomycin 750 mg/ Sodium 100 mls @ 50 mls/hr 09/10/17 17:00 09/11/17 16:45 Chloride IVPB 50 mls/hr Q24H DIAN Administration Protocol Insulin Aspart 1 vial 09/10/17 16:30 09/12/17 12:57 Novolog Vial Sliding Scale - SQ 6 units ACHS DIAN Administration Protocol Insulin Detemir 10 units 09/12/17 22:00 Levemir Vial SQ HS DIAN Levetiracetam 500 mg 09/10/17 22:00 09/12/17 11:06 Keppra - PO 500 mg BID DIAN Administration Levothyroxine Sodium 150 mcg 09/11/17 07:00 09/12/17 06:31 Synthroid - PO 150 mcg DAILY@0700 DIAN Administration Lidocaine 1 patch 09/11/17 10:00 09/12/17 11:06 Lidoderm Patch - TP 1 patch DAILY DIAN Administration Miscellaneous 1 each 09/10/17 14:43 Duragesic Patch Waste TD PRN PRN PAIN Miscellaneous 1 each 09/10/17 22:00 09/11/17 22:32 Lidoderm Patch Removal MC 1 each DAILY@2200 DIAN Administration Mupirocin 1 applic 09/10/17 22:00 09/12/17 05:52 Bactroban 2% Cream - TP 1 applic TID DIAN Administration Ondansetron HCl 4 mg 09/10/17 14:38 Zofran Injection IVPUSH Q6H PRN NAUSEA AND/OR VOMITING Oxycodone HCl 5 mg 09/10/17 14:43 09/12/17 12:55 Roxicodone - PO 5 mg Q4H PRN Administration PAIN LEVEL 6-10 Polyethylene Glycol 17 gm 09/10/17 17:23 09/12/17 11:07 Miralax (For Daily Use) - PO 17 grams DAILY DIAN Administration ASSESSMENT/PLAN: 61 y/o F with PMH HTN, metastatic colon CA (to brain 07/10/17, lungs. Followed by Dr. Kaiser, on FOLFIRI chemo tx - leucovirin, fluorouracil, irinotecan. Last chemo in June, last radiation 1 wk ago), seizure hx (on Keppra), on dexamethasone taper 4mg currently, hypothyroidism, who presented with raised skin lesions and decreased ambulation over the past three weeks. #Skin lesions and bacteremia -Currently not septic -Immunocompromised, on chemo and dexamethasone. -Echocardiogram-- no evidence of mass/vegitation. cannot rule out endocarditis. -ID consult- Dr. Chang -Derm consult- Dr. Atkins -Heme onc consult- Dr. Kaiser -Ortho consult, no suspicion for septic joint -BCX + x3. Wound cx positive as well with MRSA, group d strep, and non lactose fermenting gnb. (1st bcx mrsa, 2nd mrsa, 3rd mrsa) -Lidocaine patch, Fentanyl patch, and oxycodone 5 q4h prn for pain control -Continue Daptomycin 750 mg daily -Cardiology consult for DIANA, Dr. Lin. Will hold off on DIANA until Friday unless patient continues to be bacteremic without port -Repeat BCx pending -Bone Scan shows new lesions in left femur and left tibia, Xray does not reveal any lesions, MRI ordered. #metastatic colon CA (to brain, lungs) -on FOLFIRI chemo tx - leucovorin, fluorouracil, irinotecan -last chemo in June, last radiation 1 wk ago -continue dexamethasone 4mg BID x 4 days, then 4 mg daily -Heme onc consult - Dr. Kaiser -No need for chemotherapy right now -Palliative consult pending #Hyperglycemia likely 2/2 steroids, uncontrolled -BGM ACHS -ISS ACHS -A1c 8.9 -Continue levemir 10 sq hs #Seizure hx, with brain mets -Continue Keppra 500 mg BID #HTN- -Continue Enalapril 20mg PO qd #Hypothyroidism -Continue levothyroxine 150 mcg PO qd #F/E/N -Continue to monitor electrolytes -Diabetic, Na controlled diet #PPX SCD's Patient is now DNI. Visit type - Emergency Visit Emergency Visit: Yes ED Registration Date: 09/07/17 Care time: The patient presented to the Emergency Department on the above date and was hospitalized for further evaluation of their emergent condition. - New Patient This patient is new to me today: No - Critical Care Critical Care patient: No
--- NOTE | 2017-09-12 15:36 | PN ---
Teaching Attending Note Name of Resident: Burke Vuong ATTENDING PHYSICIAN STATEMENT I saw and evaluated the patient. I reviewed the resident's note and discussed the case with the resident. I agree with the resident's findings and plan as documented. SUBJECTIVE: No fever or chills, painin R shoulder is better . Has no abd pain. had BM this am . OBJECTIVE: NAD, Awake and cooperative CV: RRR, no mRG Lungs : CTAB Ext: no edema no foot ulcers Skin , multiple lesions with different stages, erythema, scabbed lesions, and ulcerated indurated areas . ( face, trunk, buttocks , extremities) surgical dressing on Lower back , dressing removed, there is a bloody packing in wound , with no surrounding erythema . MS : limited range of motion of R shoulder ( abduct to 90 degrees) , tenderness to palpation over shoulder ( less ) , no erythema ASSESSMENT AND PLAN: Very unfortunate 61 y/o lady with h/o met colon cancer to lungs and brain , s/p chemo , and other medical problems who presented with skin lesions and was found to have MRSA bacteremia. 1- MRSA bacteremia: from infected port vs skin lesions repeat blood cx yesterday is positive still - cont Dapto - will repeat blood cx in 1-2 days - if no clearance, then DIANA. 2- Infected Skin lesions : - cont Abx -wound cx with 3 organisms including MRSA. - lab called , no cx from back wound 3- New diagnosis of diabetes. - cont SSI, - cont levemir 4- Metastatic colon cancer: - cont decadron taper. 4 BId today, then 2 q 8h on 09/15 -xrays of LLE reviewed, awaiting report - cont fentanyl patch , lidocaine patch and oxy 5- R shoulder pain: no suspicion for septic joint per ortho PT and pain mgt 5- HTN: cont enalapril Code status : DNI . Not DNR
[2017-09-12] MEDS: fentaNYL 25mcg/hr PATCH.TD72 TD SCH (17:04)
[2017-09-12] MEDS: DAPTOMYCIN 750 MG in SODIUM CHLORIDE 100 ML IVPB SCH (17:06)
--- NOTE | 2017-09-12 18:04 | PN ---
Progress Note, Physician History of Present Illness: Remains afebrile, POD #2 - s/p I&D of back abscess/removal of port. - Current Medication List Current Medications: Active Medications Dexamethasone (Decadron -) 4 mg PO BID [facility] Last Admin: 09/12/17 11:06 Dose: 4 mg Docusate Sodium (Colace -) 100 mg PO Q8H PRN PRN Reason: CONSTIPATION Enalapril Maleate (Vasotec -) 20 mg PO DAILY [facility] Last Admin: 09/12/17 11:06 Dose: 20 mg Fentanyl (Duragesic 25mcg Patch -) 1 patch TD Q72H [facility] Stop: 09/16/17 17:59 Last Admin: 09/12/17 17:04 Dose: 1 patch IV Flush (Triple Lumen Flush) 4 ml IVPUSH PRN PRN PRN Reason: Protocol Last Admin: 09/12/17 07:38 Dose: 4 ml Daptomycin 750 mg/ Sodium (Chloride) 100 mls @ 50 mls/hr IVPB Q24H [facility] PRN Reason: Protocol Last Admin: 09/12/17 17:06 Dose: 50 mls/hr Insulin Aspart (Novolog Vial Sliding Scale -) 1 vial SQ ACHS [facility] PRN Reason: Protocol Last Admin: 09/12/17 17:05 Dose: 8 units Insulin Detemir (Levemir Vial) 10 units SQ HS [facility] Levetiracetam (Keppra -) 500 mg PO BID [facility] Last Admin: 09/12/17 11:06 Dose: 500 mg Levothyroxine Sodium (Synthroid -) 150 mcg PO DAILY@0700 [facility] Last Admin: 09/12/17 06:31 Dose: 150 mcg Lidocaine (Lidoderm Patch -) 1 patch TP DAILY [facility] Last Admin: 09/12/17 11:06 Dose: 1 patch Miscellaneous (Duragesic Patch Waste) 1 each TD PRN PRN PRN Reason: PAIN Miscellaneous (Lidoderm Patch Removal) 1 each MC DAILY@2200 [facility] Last Admin: 09/11/17 22:32 Dose: 1 each Mupirocin (Bactroban 2% Cream -) 1 applic TP TID [facility] Last Admin: 09/12/17 17:05 Dose: 1 applic Ondansetron HCl (Zofran Injection) 4 mg IVPUSH Q6H PRN PRN Reason: NAUSEA AND/OR VOMITING Oxycodone HCl (Roxicodone -) 5 mg PO Q4H PRN PRN Reason: PAIN LEVEL 6-10 Last Admin: 09/12/17 12:55 Dose: 5 mg Polyethylene Glycol (Miralax (For Daily Use) -) 17 gm PO DAILY DIAN Last Admin: 09/12/17 11:07 Dose: 17 grams - Objective Vital Signs: Vital Signs Temperature 97.8 F 09/12/17 17:16 Pulse Rate 86 09/12/17 17:16 Respiratory Rate 18 09/12/17 17:16 Blood Pressure 146/79 09/12/17 17:16 O2 Sat by Pulse Oximetry (%) 98 09/11/17 21:00 Constitutional: Yes: No Distress, Calm Neck: Yes: Supple Cardiovascular: Yes: Regular Rate and Rhythm Respiratory: Yes: Regular, Diminished, On Nasal O2 Gastrointestinal: Yes: Normal Bowel Sounds, Soft, Abdomen, Obese Edema: No Labs: CBC, BMP 09/12/17 06:30 09/12/17 06:30 INR, PTT INR 1.07 (0.82-1.09) 09/07/17 17:38 Problem List - Problems (1) MRSA bacteremia Code(s): R78.81 - BACTEREMIA (2) Colon cancer metastasized to multiple sites Code(s): C18.9 - MALIGNANT NEOPLASM OF COLON, UNSPECIFIED (3) Brain metastases Code(s): C79.31 - SECONDARY MALIGNANT NEOPLASM OF BRAIN (4) Hypothyroidism Code(s): E03.9 - HYPOTHYROIDISM, UNSPECIFIED Qualifiers: Hypothyroidism type: unspecified Qualified Code(s): E03.9 - Hypothyroidism , unspecified (5) Hypertension Code(s): I10 - ESSENTIAL (PRIMARY) HYPERTENSION (6) Pyogenic skin abscess due to bacteria Code(s): L02.91 - CUTANEOUS ABSCESS, UNSPECIFIED; B96.89 - OTH BACTERIAL AGENTS THE CAUSE OF DISEASES CLASSD ELSR Assessment/Plan 1. MRSA bacteremia suspect line sepsis POD #2 - s/p I&D of back abscess/removal of port 2. Furuncles s/p I&D 3. Metastatic colon cancer to lungs and brain post chemotherapy 4. Type 2 DM 5- HTN 6. Hypothyroidism P:1. Daptomycin and observe for blood culture clearance post port removal, if MRSA bacteremia persists then would consider DIANA to exclude endocarditis 2. Continue Vasotec 20 qd, course of steroids with GI protection, seizure prophylaxis 3. Mechanical DVT prophylaxis
[2017-09-12] MEDS ORDERED: CEFTAROLINE FOSAMIL ACETATE 600 MG in DEXTROSE 5%-WATER - 250 ML IVPB SCH (19:00)
[2017-09-12] MEDS: CEFTAROLINE FOSAMIL ACETATE 600 MG in DEXTROSE 5%-WATER - 100 ML IVPB SCH (21:11)
[2017-09-12] MEDS: LIDOCAINE PATCH REMOVAL MC SCH (23:08)
[2017-09-12] MEDS: INSULIN DETEMIR 100 UNITS/ML MDV SQ SCH (23:13)
[2017-09-13] MEDS: CEFTAROLINE FOSAMIL ACETATE 600 MG in DEXTROSE 5%-WATER - 100 ML IVPB SCH ×3 (03:29→17:04)
[2017-09-13] MEDS: MUPIROCIN CA 2% TOPICAL CREAM 15 GM TUBE TP SCH ×2 (06:08→21:41)
[2017-09-13] MEDS: LEVOTHYROXINE NA 150 MCG TABLET PO SCH (06:09)
[2017-09-13] MEDS: INSULIN SLIDING SCALE (NOVOLOG) 1 VIAL SQ SCH ×4 (06:14→21:33)
[2017-09-13] MEDS ORDERED: INSULIN (NOVOLOG) ASPART 100 UNITS/ML 10ML VIAL ONE (06:35)
[2017-09-13] MEDS: oxyCODONE HCL 5 MG TABLET PO PRN ×2 (08:54→21:59)
[2017-09-13] MEDS: DEXAMETHASONE 4 MG TABLET (FP) PO SCH ×2 (10:18→21:32)
[2017-09-13] MEDS: levETIRAcetam 500 MG TABLET (FP) PO SCH ×2 (10:19→21:32)
[2017-09-13] MEDS: ENALAPRIL MALEATE 10 MG TABLET (FP) PO SCH (10:19)
[2017-09-13] MEDS: PANTOPRAZOLE 40 MG TABLET (FP) PO SCH (10:19)
[2017-09-13] MEDS: LIDOCAINE 5% TOPICAL PATCH TP SCH (10:33)
[2017-09-13] MEDS: POLYETHYLENE GLYCOL 3350 119 GM BTL PO SCH (10:34)
--- NOTE | 2017-09-13 13:00 | PN ---
Progress Note (short form) - Note Progress Note: Patient seen and examined. Niece at bedside. She continues to feel better. Rt shoulder pain improved. Pain in the Left leg a little better Yesterday participated in PT but she felt it was difficult to walk. Repeat Blood cx pending/ O/E General: Not in any distress HEENT: BETSY, EOM Intact Oropharynx: No thrush, No mucositis or: RSR, No murmurs, No gallops Lungs diminished breath , rales bilaterally Abd: Soft, Normal bowel sounds, ventral hernia Ext:No significant edema Skin: cutaneous lesion , scabbing Temp Pulse Resp BP Pulse Ox 97.7 F 87 16 109/69 97 09/13/17 05:00 09/13/17 08:42 09/13/17 08:42 09/13/17 08:42 09/12/17 21:00 CBC, BMP 09/12/17 06:30 09/12/17 06:30 Current Medications Generic Name Dose Route Start Last Admin Trade Name Freq PRN Reason Stop Dose Admin Dexamethasone 4 mg 09/12/17 10:00 09/13/17 10:18 Decadron - PO 4 mg BID DIAN Administration Docusate Sodium 100 mg 09/10/17 14:43 Colace - PO Q8H PRN CONSTIPATION Enalapril Maleate 20 mg 09/11/17 10:00 09/13/17 10:19 Vasotec - PO 20 mg DAILY DIAN Administration Fentanyl 1 patch 09/12/17 18:00 09/12/17 17:04 Duragesic 25mcg Patch - TD 09/16/17 17:59 1 patch Q72H DIAN Administration IV Flush 4 ml 09/10/17 14:43 09/12/17 17:06 Triple Lumen Flush IVPUSH 4 ml PRN PRN Administration Protocol Daptomycin 750 mg/ Sodium 100 mls @ 50 mls/hr 09/10/17 17:00 09/12/17 17:06 Chloride IVPB 50 mls/hr Q24H DIAN Administration Protocol Ceftaroline Fosamil 600 mg/ 100 mls @ 100 mls/hr 09/12/17 19:00 09/13/17 10: 33 Dextrose IVPB 100 mls/hr Q8H-IV DIAN Administration Protocol Insulin Aspart 1 vial 09/10/17 16:30 09/13/17 11:47 Novolog Vial Sliding Scale - SQ 4 units ACHS DIAN Administration Protocol Insulin Detemir 10 units 09/12/17 22:00 09/12/17 23:13 Levemir Vial SQ 10 units HS DIAN Administration Levetiracetam 500 mg 09/10/17 22:00 09/13/17 10:19 Keppra - PO 500 mg BID DIAN Administration Levothyroxine Sodium 150 mcg 09/11/17 07:00 09/13/17 06:09 Synthroid - PO 150 mcg DAILY@0700 DIAN Administration Lidocaine 1 patch 09/11/17 10:00 09/13/17 10:33 Lidoderm Patch - TP 1 patch DAILY DIAN Administration Miscellaneous 1 each 09/10/17 14:43 Duragesic Patch Waste TD PRN PRN PAIN Miscellaneous 1 each 09/10/17 22:00 09/12/17 23:08 Lidoderm Patch Removal MC 1 each DAILY@2200 DIAN Administration Mupirocin 1 applic 09/10/17 22:00 09/13/17 06:08 Bactroban 2% Cream - TP 1 applic TID DIAN Administration Ondansetron HCl 4 mg 09/10/17 14:38 Zofran Injection IVPUSH Q6H PRN NAUSEA AND/OR VOMITING Oxycodone HCl 5 mg 09/10/17 14:43 09/13/17 08:54 Roxicodone - PO 5 mg Q4H PRN Administration PAIN LEVEL 6-10 Pantoprazole Sodium 40 mg 09/13/17 10:00 09/13/17 10:19 Protonix - PO 40 mg DAILY DIAN Administration Polyethylene Glycol 17 gm 09/10/17 17:23 09/13/17 10:34 Miralax (For Daily Use) - PO 17 grams DAILY DIAN Administration Metastatic colon ca - MRSA septicemia Port infection Anemia Likely bone mets - left femur and tibia Cutaneous lesions- likely septic emboli thrombocytopenia Xrays reviewed, No met foci identified. pain control continue abx f/u cultures dex to be tapered as per 's note. PT
--- NOTE | 2017-09-13 13:51 | PN ---
Progress Note, Physician Chief Complaint: Events noted Not in distress History of Present Illness: Patient was seen and examined. Awake and alert. Chart was reviewed Denies chest pain, SOB or palpitations - Current Medication List Current Medications: Active Medications Dexamethasone (Decadron -) 4 mg PO BID [facility] Last Admin: 09/13/17 10:18 Dose: 4 mg Docusate Sodium (Colace -) 100 mg PO Q8H PRN PRN Reason: CONSTIPATION Enalapril Maleate (Vasotec -) 20 mg PO DAILY [facility] Last Admin: 09/13/17 10:19 Dose: 20 mg Fentanyl (Duragesic 25mcg Patch -) 1 patch TD Q72H [facility] Stop: 09/16/17 17:59 Last Admin: 09/12/17 17:04 Dose: 1 patch IV Flush (Triple Lumen Flush) 4 ml IVPUSH PRN PRN PRN Reason: Protocol Last Admin: 09/12/17 17:06 Dose: 4 ml Daptomycin 750 mg/ Sodium (Chloride) 100 mls @ 50 mls/hr IVPB Q24H DIAN PRN Reason: Protocol Last Admin: 09/12/17 17:06 Dose: 50 mls/hr Ceftaroline Fosamil 600 mg/ (Dextrose) 100 mls @ 100 mls/hr IVPB Q8H-IV DIAN PRN Reason: Protocol Last Admin: 09/13/17 10:33 Dose: 100 mls/hr Insulin Aspart (Novolog Vial Sliding Scale -) 1 vial SQ ACHS DIAN PRN Reason: Protocol Last Admin: 09/13/17 11:47 Dose: 4 units Insulin Detemir (Levemir Vial) 10 units SQ HS [facility] Last Admin: 09/12/17 23:13 Dose: 10 units Levetiracetam (Keppra -) 500 mg PO BID [facility] Last Admin: 09/13/17 10:19 Dose: 500 mg Levothyroxine Sodium (Synthroid -) 150 mcg PO DAILY@0700 [facility] Last Admin: 09/13/17 06:09 Dose: 150 mcg Lidocaine (Lidoderm Patch -) 1 patch TP DAILY [facility] Last Admin: 09/13/17 10:33 Dose: 1 patch Miscellaneous (Duragesic Patch Waste) 1 each TD PRN PRN PRN Reason: PAIN Miscellaneous (Lidoderm Patch Removal) 1 each MC DAILY@2200 [facility] Last Admin: 09/12/17 23:08 Dose: 1 each Mupirocin (Bactroban 2% Cream -) 1 applic TP TID [facility] Last Admin: 09/13/17 06:08 Dose: 1 applic Ondansetron HCl (Zofran Injection) 4 mg IVPUSH Q6H PRN PRN Reason: NAUSEA AND/OR VOMITING Oxycodone HCl (Roxicodone -) 5 mg PO Q4H PRN PRN Reason: PAIN LEVEL 6-10 Last Admin: 09/13/17 08:54 Dose: 5 mg Pantoprazole Sodium (Protonix -) 40 mg PO DAILY [facility] Last Admin: 09/13/17 10:19 Dose: 40 mg Polyethylene Glycol (Miralax (For Daily Use) -) 17 gm PO DAILY [facility] Last Admin: 09/13/17 10:34 Dose: 17 grams - Objective Vital Signs: Vital Signs Temperature 97.7 F 09/13/17 05:00 Pulse Rate 87 09/13/17 08:42 Respiratory Rate 16 09/13/17 08:42 Blood Pressure 109/69 09/13/17 08:42 O2 Sat by Pulse Oximetry (%) 97 09/12/17 21:00 HENT: Yes: Atraumatic Neck: Yes: Supple Cardiovascular: Yes: Regular Rate and Rhythm, S1, S2 Respiratory: Yes: Diminished Gastrointestinal: Yes: Normal Bowel Sounds, Soft. No: Tenderness Edema: No Labs: CBC, BMP 09/12/17 06:30 09/12/17 06:30 Problem List - Problems (1) Bacteremia Code(s): R78.81 - BACTEREMIA (2) Colon cancer metastasized to multiple sites Code(s): C18.9 - MALIGNANT NEOPLASM OF COLON, UNSPECIFIED (3) Hypertension Code(s): I10 - ESSENTIAL (PRIMARY) HYPERTENSION Qualifiers: Hypertension type: essential hypertension Qualified Code(s): I10 - Essential (primary) hypertension (4) Hypothyroidism Code(s): E03.9 - HYPOTHYROIDISM, UNSPECIFIED Qualifiers: Hypothyroidism type: unspecified Qualified Code(s): E03.9 - Hypothyroidism , unspecified (5) Seizure Code(s): R56.9 - UNSPECIFIED CONVULSIONS Assessment/Plan 1. MRSA bacteremia suspect line sepsis s/p I&D of back abscess/removal of port 2. Furuncles s/p I & D 3. Metastatic colon cancer to lungs and brain post chemotherapy 4. Type 2 diabetes mellitus 5- HTN 6. Hypothyroidism PLAN: 1. Antibiotics, if MRSA bacteremia persists then would consider DIANA to exclude endocarditis 2. Continue Vasotec 20 qd, continue steroids with GI protection and seizure prophylaxis 3. DVT prophylaxis Supportive care Alex Lin MD
--- NOTE | 2017-09-13 15:21 | PN ---
Teaching Attending Note Name of Resident: Sarai Hill ATTENDING PHYSICIAN STATEMENT I saw and evaluated the patient. I reviewed the resident's note and discussed the case with the resident. I agree with the resident's findings and plan as documented. SUBJECTIVE: No fever or chills . no abd pain, Pain in R shoulder is better . has painin L leg OBJECTIVE: NAD, Awake and cooperative CV: RRR, no mRG Lungs : CTAB Ext: no edema no foot ulcers Skin , multiple lesions with different stages, erythema, scabbed lesions, and ulcerated indurated areas . ( face, trunk, buttocks , extremities), L face lesion is more erythematous and indurated today but no drainage surgical dressing on Lower back , dressing removed, there is a bloody packing in wound , with no surrounding erythema . MS: limited range of motion of R shoulder ( abduct to 90 degrees) , tenderness to palpation over shoulder ( less ) , no erythema ASSESSMENT AND PLAN: Very unfortunate 61 y/o lady with h/o met colon cancer to lungs and brain , s/p chemo , and other medical problems who presented with skin lesions and was found to have MRSA bacteremia. 1- MRSA bacteremia: from infected port vs skin lesions follow repeat cx - cont Daptomycin. ceftarolin added last night - follow cx - if no clearance, then DIANA. 2- Infected Skin lesions : - cont Abx - wound cx with 3 organisms including MRSA. 3- New diagnosis of diabetes. - cont SSI - cont levemir 4- Metastatic colon cancer: - cont decadron taper. 4 BId for now then 2 q 8h on 09/15 -xrays of LLE with no lesions . MRI pending - cont fentanyl patch , lidocaine patch and oxy 5- R shoulder pain: no suspicion for septic joint per ortho PT and pain mgt 5- HTN: cont enalapril Code status: DNI. Not DNR
--- NOTE | 2017-09-13 15:47 | PN ---
Progress Note (short form) - Note Progress Note: alert port removed 09/10 shoulder pain much improved now with left leg pain pusutle on her cheek! Vital Signs Period Temp Pulse Resp BP Sys/[place] Pulse Ox Last 24 Hr 97.3 F-97.8 F 61-98 18-20 121-142/68-86 98-98 cor-rrr llungs clear abd soft,nt ext left leg pain skin lesions drying a/p mrsa bacteremia-port removed port infecion skin lesions- likely staph- continue daptomycin/ceftaroline penicillin allergy rash and itching positive bone scan left femur- MRI pending metastatic colon cancer -on decadron for brain lesion-being tapered thrombocytopenia- suspect secondary to infection-improved overall prognosis is poor d/w hospitalist Problem List - Problems (1) Bacteremia Code(s): R78.81 - BACTEREMIA (2) Skin lesions, generalized Code(s): L98.9 - DISORDER OF THE SKIN AND SUBCUTANEOUS TISSUE, UNSPECIFIED (3) Colon cancer metastasized to multiple sites Code(s): C18.9 - MALIGNANT NEOPLASM OF COLON, UNSPECIFIED
[2017-09-13] MEDS: DAPTOMYCIN 750 MG in SODIUM CHLORIDE 100 ML IVPB SCH (17:04)
--- NOTE | 2017-09-13 18:20 | PN ---
Progress Note (short form) - Note Progress Note: Ortho Pt seen and examined pain in right shoulder and Left LE have improved PE- right shoulder- mild ttp, limited active ROM but full passive ROM, nvi left hip, femur- decr pain, incr rom, nvi xrays of left femur and tibia are neg for lytic lesions a/p PT eval, wbat right shoulder- ROM exercises heme/onc f/u- RT? NTD orthopedically if pt continues to improve d/w Dr. Armenta
--- NOTE | 2017-09-13 19:34 | PN ---
Physical Exam: SUBJECTIVE: Patient seen and examined no new events over night; right shoulder pain improved; still with b/l lower extremity. No fevers, chills, cough, chest pain, sob. OBJECTIVE: Vital Signs Period Temp Pulse Resp BP Sys/[place] Pulse Ox Last 24 Hr 97.7 F-97.9 F 67-87 16-20 109-141/67-78 97-97 GENERAL: The patient is awake, alert, and fully oriented, in no acute distress. HEAD: right forehead scalp skin lesion with puss; thick milky yellow substance NECK: Trachea midline, full range of motion, supple. LUNGS: Breath sounds equal, clear to auscultation bilaterally, no wheezes, no crackles, no accessory muscle use. HEART: Regular rate and rhythm, S1, S2 without murmur, rub or gallop. ABDOMEN: Soft, nontender, nondistended, normoactive bowel sounds, no guarding, no rebound, no hepatosplenomegaly, no masses. EXTREMITIES: 2+ pulses, warm, well-perfused, no edema. NEUROLOGICAL: Cranial nerves II through XII grossly intact. Normal speech, gait not observed. SKIN: mutiple infected skin lesion in different stages of healing; +/_ puss/ draining Laboratory Results - last 24 hr 09/12/17 09/13/17 09/13/17 23:10 06:10 11:00 POC Glucometer 190 223 248 09/13/17 17:01 POC Glucometer 264 Active Medications Generic Name Dose Route Start Last Admin Trade Name Freq PRN Reason Stop Dose Admin Dexamethasone 4 mg 09/12/17 10:00 09/13/17 10:18 Decadron - PO 4 mg BID DIAN Administration Docusate Sodium 100 mg 09/10/17 14:43 Colace - PO Q8H PRN CONSTIPATION Enalapril Maleate 20 mg 09/11/17 10:00 09/13/17 10:19 Vasotec - PO 20 mg DAILY DIAN Administration Fentanyl 1 patch 09/12/17 18:00 09/12/17 17:04 Duragesic 25mcg Patch - TD 09/16/17 17:59 1 patch Q72H DIAN Administration IV Flush 4 ml 09/10/17 14:43 09/12/17 17:06 Triple Lumen Flush IVPUSH 4 ml PRN PRN Administration Protocol Daptomycin 750 mg/ Sodium 100 mls @ 50 mls/hr 09/10/17 17:00 09/13/17 17:04 Chloride IVPB 50 mls/hr Q24H DIAN Administration Protocol Ceftaroline Fosamil 600 mg/ 100 mls @ 100 mls/hr 09/12/17 19:00 09/13/17 17: 04 Dextrose IVPB 100 mls/hr Q8H-IV DIAN Administration Protocol Insulin Aspart 1 vial 09/10/17 16:30 09/13/17 17:04 Novolog Vial Sliding Scale - SQ 6 units ACHS DIAN Administration Protocol Insulin Detemir 10 units 09/12/17 22:00 09/12/17 23:13 Levemir Vial SQ 10 units HS DIAN Administration Levetiracetam 500 mg 09/10/17 22:00 09/13/17 10:19 Keppra - PO 500 mg BID DIAN Administration Levothyroxine Sodium 150 mcg 09/11/17 07:00 09/13/17 06:09 Synthroid - PO 150 mcg DAILY@0700 DIAN Administration Lidocaine 1 patch 09/11/17 10:00 09/13/17 10:33 Lidoderm Patch - TP 1 patch DAILY DIAN Administration Miscellaneous 1 each 09/10/17 14:43 Duragesic Patch Waste TD PRN PRN PAIN Miscellaneous 1 each 09/10/17 22:00 09/12/17 23:08 Lidoderm Patch Removal MC 1 each DAILY@2200 DIAN Administration Mupirocin 1 applic 09/10/17 22:00 09/13/17 06:08 Bactroban 2% Cream - TP 1 applic TID DIAN Administration Ondansetron HCl 4 mg 09/10/17 14:38 Zofran Injection IVPUSH Q6H PRN NAUSEA AND/OR VOMITING Oxycodone HCl 5 mg 09/10/17 14:43 09/13/17 08:54 Roxicodone - PO 5 mg Q4H PRN Administration PAIN LEVEL 6-10 Pantoprazole Sodium 40 mg 09/13/17 10:00 09/13/17 10:19 Protonix - PO 40 mg DAILY DIAN Administration Polyethylene Glycol 17 gm 09/10/17 17:23 09/13/17 10:34 Miralax (For Daily Use) - PO 17 grams DAILY DIAN Administration ASSESSMENT/PLAN: This is a 61 year old female with a history of metastatic colon CA, now with brain swelling, spread to lung, who presented with multiple skin lesions, found to have MRSA+ bacteremia. #MRSA bacteremia secondary to seeding of skin lesions vs chemo port infection -chemo port removed -repeat blood cultures are still + -repeat blood cultures in am -no vegetations on echo -if blood cx still + get DIANA to r/o endocarditis -Dapotmycin day #4; cefterolin day #2 -appreciate ID #metastatic colon CA with brain/lung and possible bone involvement -last chemo in Jun 2017 -may need more radiation due to poss bone involvement bone scan + -f/u MRI -on steroids for brain swelling; tapering down -appreciate hem onc #skin lesions: mrsa+' biopsy negative for CA -derm consulted -IV antibiotics #seizure hx: -cont anti seizure meds #hyperglycemiaL -bgm/ insulin SS achs -levemir 10U HS #htn: controlled -cont home meds as above #hypothyroid: controlled -cont levothyroxine Diabetic diet GI prophylaxis: protonix VTE: prophylaxis: scds Case discussed with attending Dr. Juany Hill- PGY 2 Problem List - Problems (1) Bacteremia Code(s): R78.81 - BACTEREMIA (2) Colon cancer metastasized to multiple sites Code(s): C18.9 - MALIGNANT NEOPLASM OF COLON, UNSPECIFIED (3) Hypertension Code(s): I10 - ESSENTIAL (PRIMARY) HYPERTENSION Qualifiers: Hypertension type: essential hypertension Qualified Code(s): I10 - Essential (primary) hypertension (4) Hypothyroidism Code(s): E03.9 - HYPOTHYROIDISM, UNSPECIFIED Qualifiers: Hypothyroidism type: unspecified Qualified Code(s): E03.9 - Hypothyroidism , unspecified (5) MRSA bacteremia Code(s): R78.81 - BACTEREMIA (6) Pyogenic skin abscess due to bacteria Code(s): L02.91 - CUTANEOUS ABSCESS, UNSPECIFIED; B96.89 - OTH BACTERIAL AGENTS THE CAUSE OF DISEASES CLASSD [id number] (7) Skin lesions, generalized Code(s): L98.9 - DISORDER OF THE SKIN AND SUBCUTANEOUS TISSUE, UNSPECIFIED Visit type - Emergency Visit Emergency Visit: Yes ED Registration Date: 09/07/17 Care time: The patient presented to the Emergency Department on the above date and was hospitalized for further evaluation of their emergent condition. - New Patient This patient is new to me today: Yes Date on this admission: 09/13/17 - Critical Care Critical Care patient: No
[2017-09-13] MEDS: INSULIN DETEMIR 100 UNITS/ML MDV SQ SCH (21:32)
[2017-09-13] MEDS: LIDOCAINE PATCH REMOVAL MC SCH (21:33)
[2017-09-13] MEDS ORDERED: DEXAMETHASONE 4 MG TABLET (FP) PO SCH (22:45)
[2017-09-14] MEDS: oxyCODONE HCL 5 MG TABLET PO PRN ×2 (01:31→09:08)
[2017-09-14] MEDS: CEFTAROLINE FOSAMIL ACETATE 600 MG in DEXTROSE 5%-WATER - 100 ML IVPB SCH ×3 (01:31→18:55)
[2017-09-14] MEDS: INSULIN SLIDING SCALE (NOVOLOG) 1 VIAL SQ SCH ×4 (06:35→21:41)
[2017-09-14] MEDS: MUPIROCIN CA 2% TOPICAL CREAM 15 GM TUBE TP SCH ×3 (06:36→21:39)
[2017-09-14] MEDS: LEVOTHYROXINE NA 150 MCG TABLET PO SCH (06:38)
[2017-09-14 07:51] LABS: HEMATOCRIT 26.9 % (32.4-45.2); HEMOGLOBIN 9.4 GM/dL (10.7-15.3); MCHC 35.1 g/dl (32.0-36.0); MEAN CELL VOLUME 88.2 fl (80-96); PLATELET COUNT 171 K/MM3 (134-434); RBC 3.05 M/mm3 (3.60-5.2); RDW 18.7 % (11.6-15.6); WHITE BLOOD COUNT 8.3 K/mm3 (4.0-10.0)
[2017-09-14] MEDS ORDERED: PT OWN MED DRAWER 7, Y5N ONE ×2 (09:04→16:36)
[2017-09-14] MEDS: levETIRAcetam 500 MG TABLET (FP) PO SCH ×2 (09:08→21:41)
[2017-09-14] MEDS: DEXAMETHASONE 4 MG TABLET (FP) PO SCH (09:08)
[2017-09-14] MEDS: LIDOCAINE 5% TOPICAL PATCH TP SCH (09:08)
[2017-09-14] MEDS: PANTOPRAZOLE 40 MG TABLET (FP) PO SCH (09:08)
[2017-09-14] MEDS: ENALAPRIL MALEATE 10 MG TABLET (FP) PO SCH (09:08)
--- NOTE | 2017-09-14 10:27 | PN ---
Progress Note, Physician Chief Complaint: Events noted Not in distress History of Present Illness: Patient was seen and examined. Awake and alert. Chart was reviewed Denies chest pain, SOB or palpitations - Current Medication List Current Medications: Active Medications Dexamethasone (Decadron -) 4 mg PO BID [facility] Stop: 09/14/17 23:00 Last Admin: 09/14/17 09:08 Dose: 4 mg Dexamethasone (Decadron -) 2 mg PO Q8H DIAN Docusate Sodium (Colace -) 100 mg PO Q8H PRN PRN Reason: CONSTIPATION Enalapril Maleate (Vasotec -) 20 mg PO DAILY [facility] Last Admin: 09/14/17 09:08 Dose: 20 mg Fentanyl (Duragesic 25mcg Patch -) 1 patch TD Q72H [facility] Stop: 09/16/17 17:59 Last Admin: 09/12/17 17:04 Dose: 1 patch IV Flush (Triple Lumen Flush) 4 ml IVPUSH PRN PRN PRN Reason: Protocol Last Admin: 09/12/17 17:06 Dose: 4 ml Daptomycin 750 mg/ Sodium (Chloride) 100 mls @ 50 mls/hr IVPB Q24H DIAN PRN Reason: Protocol Last Admin: 09/13/17 17:04 Dose: 50 mls/hr Ceftaroline Fosamil 600 mg/ (Dextrose) 100 mls @ 100 mls/hr IVPB Q8H-IV DIAN PRN Reason: Protocol Last Admin: 09/14/17 09:08 Dose: 100 mls/hr Insulin Aspart (Novolog Vial Sliding Scale -) 1 vial SQ ACHS DIAN PRN Reason: Protocol Last Admin: 09/14/17 06:35 Dose: 4 units Insulin Detemir (Levemir Vial) 10 units SQ HS [facility] Last Admin: 09/13/17 21:32 Dose: 10 units Levetiracetam (Keppra -) 500 mg PO BID [facility] Last Admin: 09/14/17 09:08 Dose: 500 mg Levothyroxine Sodium (Synthroid -) 150 mcg PO DAILY@0700 [facility] Last Admin: 09/14/17 06:38 Dose: 150 mcg Lidocaine (Lidoderm Patch -) 1 patch TP DAILY [facility] Last Admin: 09/14/17 09:08 Dose: 1 patch Miscellaneous (Duragesic Patch Waste) 1 each TD PRN PRN PRN Reason: PAIN Miscellaneous (Lidoderm Patch Removal) 1 each MC DAILY@2200 [facility] Last Admin: 09/13/17 21:33 Dose: 1 each Mupirocin (Bactroban 2% Cream -) 1 applic TP TID [facility] Last Admin: 09/14/17 06:36 Dose: 1 applic Ondansetron HCl (Zofran Injection) 4 mg IVPUSH Q6H PRN PRN Reason: NAUSEA AND/OR VOMITING Oxycodone HCl (Roxicodone -) 5 mg PO Q4H PRN PRN Reason: PAIN LEVEL 6-10 Last Admin: 09/14/17 09:08 Dose: 5 mg Pantoprazole Sodium (Protonix -) 40 mg PO DAILY [facility] Last Admin: 09/14/17 09:08 Dose: 40 mg Polyethylene Glycol (Miralax (For Daily Use) -) 17 gm PO DAILY [facility] Last Admin: 09/13/17 10:34 Dose: 17 grams - Objective Vital Signs: Vital Signs Temperature 97.6 F 09/14/17 06:00 Pulse Rate 61 09/14/17 06:00 Respiratory Rate 18 09/14/17 06:00 Blood Pressure 142/76 09/14/17 06:00 O2 Sat by Pulse Oximetry (%) 98 09/13/17 21:00 HENT: Yes: Atraumatic Neck: Yes: Supple Cardiovascular: Yes: Regular Rate and Rhythm, S1, S2 Respiratory: Yes: CTA Bilaterally Gastrointestinal: Yes: Normal Bowel Sounds, Soft. No: Tenderness Edema: No Labs: CBC, BMP 09/14/17 06:00 Problem List - Problems (1) Bacteremia Code(s): R78.81 - BACTEREMIA (2) Colon cancer metastasized to multiple sites Code(s): C18.9 - MALIGNANT NEOPLASM OF COLON, UNSPECIFIED (3) Hypertension Code(s): I10 - ESSENTIAL (PRIMARY) HYPERTENSION Qualifiers: Hypertension type: essential hypertension Qualified Code(s): I10 - Essential (primary) hypertension (4) Hypothyroidism Code(s): E03.9 - HYPOTHYROIDISM, UNSPECIFIED Qualifiers: Hypothyroidism type: unspecified Qualified Code(s): E03.9 - Hypothyroidism , unspecified (5) Seizure Code(s): R56.9 - UNSPECIFIED CONVULSIONS Assessment/Plan 1. MRSA bacteremia suspect line sepsis s/p I&D of back abscess/removal of port 2. Furuncles s/p I & D 3. Metastatic colon cancer to lungs and brain post chemotherapy 4. Type 2 diabetes mellitus 5- HTN 6. Hypothyroidism PLAN: 1. Antibiotics, if MRSA bacteremia persists then would consider DIANA to exclude endocarditis 2. Continue Vasotec. Continue steroids with GI protection and seizure prophylaxis 3. DVT prophylaxis Supportive care Alex Lin MD
[2017-09-14] MEDS: POLYETHYLENE GLYCOL 3350 119 GM BTL PO SCH (10:51)
[2017-09-14 11:14] LABS: BLOOD UREA NITROGEN 26 mg/dL (7-18); CREATININE 0.6 mg/dL (0.55-1.02); GLUCOSE,RANDOM 200 mg/dL (74-106); POTASSIUM 4.8 mmol/L (3.5-5.1); SODIUM 132 mmol/L (136-145)
[2017-09-14 11:15] LABS: ALBUMIN 2.5 g/dl (3.4-5.0); ALK PHOS 120 U/L (45-117); ANION GAP 4 (8-16); BILIRUBIN,TOTAL 0.5 mg/dL (0.2-1.0); CALCIUM 8.5 mg/dL (8.5-10.1); CHLORIDE 100 mmol/L (98-107); CO2 28 mmol/L (21-32); SGOT/AST 14 U/L (15-37); SGPT/ALT 43 U/L (12-78); TOT PROT 5.3 g/dl (6.4-8.2)
[2017-09-14 11:48] LABS: PLATELET ESTIMATE NORMAL
--- NOTE | 2017-09-14 12:55 | PN ---
Progress Note (short form) - Note Progress Note: Patient seen and examined. continues to improve Pain is ongoing but she feels OK with the present pain regimen. MRI reviewed O/E General: Not in any distress HEENT: BETSY, EOM Intact Oropharynx: No thrush, No mucositis or: RSR, No murmurs, No gallops Lungs diminished breath , rales bilaterally Abd: Soft, Normal bowel sounds, ventral hernia Ext:No significant edema Skin: cutaneous lesion , scabbing Last Vital Signs Temp Pulse Resp BP Pulse Ox 97.8 F 66 18 122/74 98 09/14/17 10:00 09/14/17 10:00 09/14/17 10:00 09/14/17 10:00 09/14/17 09:00 CBC, BMP 09/14/17 06:00 09/14/17 06:00 Current Medications Generic Name Dose Route Start Last Admin Trade Name Freq PRN Reason Stop Dose Admin Dexamethasone 4 mg 09/12/17 10:00 09/14/17 09:08 Decadron - PO 09/14/17 23:00 4 mg BID DIAN Administration Dexamethasone 2 mg 09/15/17 08:00 Decadron - PO Q8H DIAN Docusate Sodium 100 mg 09/10/17 14:43 Colace - PO Q8H PRN CONSTIPATION Enalapril Maleate 20 mg 09/11/17 10:00 09/14/17 09:08 Vasotec - PO 20 mg DAILY DIAN Administration Fentanyl 1 patch 09/12/17 18:00 09/12/17 17:04 Duragesic 25mcg Patch - TD 09/16/17 17:59 1 patch Q72H DIAN Administration IV Flush 4 ml 09/10/17 14:43 09/12/17 17:06 Triple Lumen Flush IVPUSH 4 ml PRN PRN Administration Protocol Daptomycin 750 mg/ Sodium 100 mls @ 50 mls/hr 09/10/17 17:00 09/13/17 17:04 Chloride IVPB 50 mls/hr Q24H DIAN Administration Protocol Ceftaroline Fosamil 600 mg/ 100 mls @ 100 mls/hr 09/12/17 19:00 09/14/17 09: 08 Dextrose IVPB 100 mls/hr Q8H-IV DIAN Administration Protocol Insulin Aspart 1 vial 09/10/17 16:30 09/14/17 12:00 Novolog Vial Sliding Scale - SQ 6 units ACHS DIAN Administration Protocol Insulin Detemir 10 units 09/12/17 22:00 09/13/17 21:32 Levemir Vial SQ 10 units HS DIAN Administration Levetiracetam 500 mg 09/10/17 22:00 09/14/17 09:08 Keppra - PO 500 mg BID DIAN Administration Levothyroxine Sodium 150 mcg 09/11/17 07:00 09/14/17 06:38 Synthroid - PO 150 mcg DAILY@0700 DIAN Administration Lidocaine 1 patch 09/11/17 10:00 09/14/17 09:08 Lidoderm Patch - TP 1 patch DAILY DIAN Administration Miscellaneous 1 each 09/10/17 14:43 Duragesic Patch Waste TD PRN PRN PAIN Miscellaneous 1 each 09/10/17 22:00 09/13/17 21:33 Lidoderm Patch Removal MC 1 each DAILY@2200 DIAN Administration Mupirocin 1 applic 09/10/17 22:00 09/14/17 06:36 Bactroban 2% Cream - TP 1 applic TID DIAN Administration Ondansetron HCl 4 mg 09/10/17 14:38 Zofran Injection IVPUSH Q6H PRN NAUSEA AND/OR VOMITING Oxycodone HCl 5 mg 09/10/17 14:43 09/14/17 09:08 Roxicodone - PO 5 mg Q4H PRN Administration PAIN LEVEL 6-10 Pantoprazole Sodium 40 mg 09/13/17 10:00 09/14/17 09:08 Protonix - PO 40 mg DAILY DIAN Administration Polyethylene Glycol 17 gm 09/10/17 17:23 09/13/17 10:34 Miralax (For Daily Use) - PO 17 grams DAILY DIAN Administration Metastatic colon ca - MRSA septicemia Port infection ,s/p port removal, has central line Anemia Bony mets - left tibia Cutaneous lesions- likely septic emboli MRI reviewed, to consider Pal RT during course continue abx, f/u cultures, repeat cultures again POSITIVE, ?DIANA pain control dex to be tapered as per 's note. will follow
[2017-09-14] MEDS: DAPTOMYCIN 750 MG in SODIUM CHLORIDE 100 ML IVPB SCH (16:51)
--- NOTE | 2017-09-14 19:40 | PN ---
Progress Note (short form) - Note Progress Note: Subjective: no fever or chills . pain in R shoulder is better . has pain in L leg Objective: Vital Signs: Last Vital Signs Temp Pulse Resp BP Pulse Ox 98.0 F 63 20 153/71 98 09/14/17 17:17 09/14/17 17:17 09/14/17 17:17 09/14/17 17:17 09/14/17 09:00 Laboratory Results - last 24 hr 09/13/17 09/14/17 09/14/17 21:29 01:30 06:00 WBC 8.3 RBC 3.05 L Hgb 9.4 L Hct 26.9 L MCV 88.2 MCH 31.0 MCHC 35.1 RDW 18.7 H Plt Count 171 D MPV 8.0 Neutrophils % No Result Required. Neutrophils % (Manual) 83.0 H Band Neutrophils % 2.0 Lymphocytes % No Result Required. Lymphocytes % (Manual) 2.0 L D Monocytes % (Manual) 2 L Eosinophils % (Manual) 0.0 Basophils % (Manual) 0.0 Myelocytes % (Man) 6 H D Promyelocytes % (Man) 1 D Blast Cells % (Manual) 0 Nucleated RBC % 0 Metamyelocytes 2 D Platelet Estimate Normal Sodium Potassium Chloride Carbon Dioxide Anion Gap BUN Creatinine Creat Clearance w eGFR POC Glucometer 219 201 Random Glucose Calcium Total Bilirubin AST ALT Alkaline Phosphatase Total Protein Albumin 09/14/17 09/14/17 09/14/17 06:00 06:33 11:09 WBC RBC Hgb Hct MCV MCH MCHC RDW Plt Count MPV Neutrophils % Neutrophils % (Manual) Band Neutrophils % Lymphocytes % Lymphocytes % (Manual) Monocytes % (Manual) Eosinophils % (Manual) Basophils % (Manual) Myelocytes % (Man) Promyelocytes % (Man) Blast Cells % (Manual) Nucleated RBC % Metamyelocytes Platelet Estimate Sodium 132 L Potassium 4.8 Chloride 100 Carbon Dioxide 28 Anion Gap 4 L BUN 26 H Creatinine 0.6 Creat Clearance w eGFR > 60 POC Glucometer 224 269 Random Glucose 200 H Calcium 8.5 Total Bilirubin 0.5 D AST 14 L ALT 43 Alkaline Phosphatase 120 H Total Protein 5.3 L Albumin 2.5 L 09/14/17 16:53 WBC RBC Hgb Hct MCV MCH MCHC RDW Plt Count MPV Neutrophils % Neutrophils % (Manual) Band Neutrophils % Lymphocytes % Lymphocytes % (Manual) Monocytes % (Manual) Eosinophils % (Manual) Basophils % (Manual) Myelocytes % (Man) Promyelocytes % (Man) Blast Cells % (Manual) Nucleated RBC % Metamyelocytes Platelet Estimate Sodium Potassium Chloride Carbon Dioxide Anion Gap BUN Creatinine Creat Clearance w eGFR POC Glucometer 320 Random Glucose Calcium Total Bilirubin AST ALT Alkaline Phosphatase Total Protein Albumin Physical Exam: NAD, Awake and cooperative CV: RRR, no mRG Lungs: CTAB Ext: no edema no foot ulcers Skin, multiple lesions with different stages, erythema, scabbed lesions, and ulcerated indurated areas surgical dressing on Lower back , dressing removed, there is a clean packing in wound , with no surrounding erythema . MS: limited range of motion of R shoulder ( abduct to 90 degrees) , tenderness to palpation over shoulder ( less ) , no erythema . TTP over L leg ASSESSMENT AND PLAN: Very unfortunate 61 y/o lady with h/o met colon cancer to lungs and brain , s/p chemo , and other medical problems who presented with skin lesions and was found to have MRSA bacteremia. 1- MRSA bacteremia: follow repeat cx( + form ) - cont Daptomycin and ceftarolin - follow cx - possible DIANA. 2- Infected Skin lesions : - cont Abx 3- New diagnosis of diabetes. - cont SSI - cont levemir 4- Metastatic colon cancer: - cont decadron taper. 2 q 8h tomorrow - MRI with bone mets in tibia - cont fentanyl patch , lidocaine patch and oxy 5- R shoulder pain: no suspicion for septic joint per ortho PT and pain mgt 5- HTN: cont enalapril Code status: DNI. Not DNR Visit type - Emergency Visit Emergency Visit: Yes ED Registration Date: 09/07/17 Care time: The patient presented to the Emergency Department on the above date and was hospitalized for further evaluation of their emergent condition. - New Patient This patient is new to me today: No - Critical Care Critical Care patient: No
[2017-09-14] MEDS: LIDOCAINE PATCH REMOVAL MC SCH (21:41)
[2017-09-14] MEDS: INSULIN DETEMIR 100 UNITS/ML MDV SQ SCH (21:41)
[2017-09-14] MEDS ORDERED: DEXAMETHASONE 4 MG TABLET (FP) PO ONE (22:00)
[2017-09-15] MEDS: CEFTAROLINE FOSAMIL ACETATE 600 MG in DEXTROSE 5%-WATER - 100 ML IVPB SCH ×3 (01:25→19:09)
[2017-09-15] MEDS: oxyCODONE HCL 5 MG TABLET PO PRN ×4 (01:32→15:05)
[2017-09-15] MEDS: DOCUSATE SODIUM 100 MG CAPSULE (FP) PO PRN ×3 (01:49→09:45)
[2017-09-15] MEDS ORDERED: SIMETHICONE 40 MG/0.6 ML BOTTLE PO ONE (03:29)
[2017-09-15] MEDS: MUPIROCIN CA 2% TOPICAL CREAM 15 GM TUBE TP SCH ×3 (06:14→22:38)
[2017-09-15] MEDS: LEVOTHYROXINE NA 150 MCG TABLET PO SCH (06:15)
[2017-09-15] MEDS: INSULIN SLIDING SCALE (NOVOLOG) 1 VIAL SQ SCH ×4 (06:16→22:42)
[2017-09-15] MEDS ORDERED: INSULIN (NOVOLOG) ASPART 100 UNITS/ML 10ML VIAL ONE (06:50)
[2017-09-15] MEDS ORDERED: DEXAMETHASONE 4 MG TABLET (FP) PO SCH ×2 (07:00→08:00)
[2017-09-15] MEDS: TRIPLE LUMEN FLUSH 4 ML ML IVPUSH PRN (07:22)
[2017-09-15] MEDS ORDERED: PT OWN MED DRAWER 7, Y5N ONE ×2 (09:39→19:07)
[2017-09-15] MEDS: levETIRAcetam 500 MG TABLET (FP) PO SCH ×2 (09:45→22:41)
[2017-09-15] MEDS: PANTOPRAZOLE 40 MG TABLET (FP) PO SCH (09:46)
[2017-09-15] MEDS: LIDOCAINE 5% TOPICAL PATCH TP SCH (09:46)
[2017-09-15] MEDS: ENALAPRIL MALEATE 10 MG TABLET (FP) PO SCH (09:46)
[2017-09-15] MEDS: POLYETHYLENE GLYCOL 3350 119 GM BTL PO SCH (09:46)
--- NOTE | 2017-09-15 12:02 | PN ---
Physical Exam: SERVICE: Hematology and Oncology SUBJECTIVE: Through her son at bedside, patient reported having diffuse abd pain at times, belching but no bowel movement yet. R shoulder pain has become better with lidocaine patch. Denies fever, chills, chest pain, sob. OBJECTIVE: Vital Signs Period Temp Pulse Resp BP Sys/[place] Pulse Ox Last 24 Hr 97.3 F-98.2 F 63-98 20-20 126-156/71-86 97 GENERAL: AAO x 3, appears weak but able to answer questions, no in cardiopulmonary distress HEAD: AT, NC EYES: PERRLA, sclera anicteric, conjunctiva pale ENT: oropharynx clear without exudates, pale and moist mucous membranes. CHEST: L TLC in place, R upper chest surgical clips in place NECK: No bruits or lymphedopathy LUNGS: b/l rhonchi HEART: RRR, S1, S2 without murmur, rub or gallop. ABDOMEN: Soft, diffuse tenderness upon light palpations, nondistended, hypoactive bowel sounds, no guarding, no rebound EXTREMITIES: no edema, tenderness upon pressing on b/l lower extremities, worse on the L SKIN: multiple scabbed lesions on face, arms and legs. CBCD WBC 8.3 K/mm3 (4.0-10.0) 09/14/17 06:00 RBC 3.05 M/mm3 (3.60-5.2) L 09/14/17 06:00 Hgb 9.4 GM/dL (10.7-15.3) L 09/14/17 06:00 Hct 26.9 % (32.4-45.2) L 09/14/17 06:00 MCV 88.2 fl (80-96) 09/14/17 06:00 MCHC 35.1 g/dl (32.0-36.0) 09/14/17 06:00 RDW 18.7 % (11.6-15.6) H 09/14/17 06:00 Plt Count 171 K/MM3 (134-434) D 09/14/17 06:00 MPV 8.0 fl (7.5-11.1) 09/14/17 06:00 CMP Sodium 132 mmol/L (136-145) L 09/14/17 06:00 Potassium 4.8 mmol/L (3.5-5.1) 09/14/17 06:00 Chloride 100 mmol/L (98-107) 09/14/17 06:00 Carbon Dioxide 28 mmol/L (21-32) 09/14/17 06:00 Anion Gap 4 (8-16) L 09/14/17 06:00 BUN 26 mg/dL (7-18) H 09/14/17 06:00 Creatinine 0.6 mg/dL (0.55-1.02) 09/14/17 06:00 Creat Clearance w eGFR > 60 (>60) 09/14/17 06:00 Calcium 8.5 mg/dL (8.5-10.1) 09/14/17 06:00 Total Bilirubin 0.5 mg/dL (0.2-1.0) D 09/14/17 06:00 AST 14 U/L (15-37) L 09/14/17 06:00 ALT 43 U/L (12-78) 09/14/17 06:00 Alkaline Phosphatase 120 U/L (45-117) H 09/14/17 06:00 Total Protein 5.3 g/dl (6.4-8.2) L 09/14/17 06:00 Albumin 2.5 g/dl (3.4-5.0) L 09/14/17 06:00 Active Medications Generic Name Dose Route Start Last Admin Trade Name Freq PRN Reason Stop Dose Admin Dexamethasone 2 mg 09/15/17 07:20 Decadron - PO TID DIAN Docusate Sodium 100 mg 09/10/17 14:43 09/15/17 09:45 Colace - PO 100 mg Q8H PRN Administration CONSTIPATION Enalapril Maleate 20 mg 09/11/17 10:00 09/15/17 09:46 Vasotec - PO 20 mg DAILY DIAN Administration Fentanyl 1 patch 09/12/17 18:00 09/12/17 17:04 Duragesic 25mcg Patch - TD 09/16/17 17:59 1 patch Q72H DIAN Administration IV Flush 4 ml 09/10/17 14:43 09/15/17 07:22 Triple Lumen Flush IVPUSH 4 ml PRN PRN Administration Protocol Daptomycin 750 mg/ Sodium 100 mls @ 50 mls/hr 09/10/17 17:00 09/14/17 16:51 Chloride IVPB 50 mls/hr Q24H DIAN Administration Protocol Ceftaroline Fosamil 600 mg/ 100 mls @ 100 mls/hr 09/12/17 19:00 09/15/17 09: 46 Dextrose IVPB 100 mls/hr Q8H-IV DIAN Administration Protocol Insulin Aspart 1 vial 09/10/17 16:30 09/15/17 06:16 Novolog Vial Sliding Scale - SQ 2 units ACHS DIAN Administration Protocol Insulin Detemir 10 units 09/12/17 22:00 09/14/17 21:41 Levemir Vial SQ 10 units HS DIAN Administration Levetiracetam 500 mg 09/10/17 22:00 09/15/17 09:45 Keppra - PO 500 mg BID DIAN Administration Levothyroxine Sodium 150 mcg 09/11/17 07:00 09/15/17 06:15 Synthroid - PO 150 mcg DAILY@0700 DIAN Administration Lidocaine 1 patch 09/11/17 10:00 09/15/17 09:46 Lidoderm Patch - TP 1 patch DAILY DIAN Administration Miscellaneous 1 each 09/10/17 14:43 Duragesic Patch Waste TD PRN PRN PAIN Miscellaneous 1 each 09/10/17 22:00 09/14/17 21:41 Lidoderm Patch Removal MC 1 each DAILY@2200 DIAN Administration Mupirocin 1 applic 09/10/17 22:00 09/15/17 06:14 Bactroban 2% Cream - TP 1 applic TID DIAN Administration Ondansetron HCl 4 mg 09/10/17 14:38 Zofran Injection IVPUSH Q6H PRN NAUSEA AND/OR VOMITING Oxycodone HCl 5 mg 09/10/17 14:43 09/15/17 09:45 Roxicodone - PO 5 mg Q4H PRN Administration PAIN LEVEL 6-10 Pantoprazole Sodium 40 mg 09/13/17 10:00 09/15/17 09:46 Protonix - PO 40 mg DAILY DIAN Administration Polyethylene Glycol 17 gm 09/10/17 17:23 09/15/17 09:46 Miralax (For Daily Use) - PO 17 grams DAILY DIAN Administration ASSESSMENT 61 yo F w/ HTN, 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 PLAN Metastatic colonic CA, to brain and bone: pain control and supportive care Visit type - Emergency Visit Emergency Visit: No - New Patient This patient is new to me today: Yes Date on this admission: 09/16/17 - Critical Care Critical Care patient: No - Discharge Referral Referred to [facility] Med [facility] No
--- NOTE | 2017-09-15 12:28 | PN ---
Progress Note, Physician History of Present Illness: Remains afebrile, POD #5 - s/p I&D of back abscess/removal of port. - Current Medication List Current Medications: Active Medications Dexamethasone (Decadron -) 2 mg PO TID [facility] Docusate Sodium (Colace -) 100 mg PO Q8H PRN PRN Reason: CONSTIPATION Last Admin: 09/15/17 09:45 Dose: 100 mg Enalapril Maleate (Vasotec -) 20 mg PO DAILY [facility] Last Admin: 09/15/17 09:46 Dose: 20 mg Fentanyl (Duragesic 25mcg Patch -) 1 patch TD Q72H [facility] Stop: 09/16/17 17:59 Last Admin: 09/12/17 17:04 Dose: 1 patch IV Flush (Triple Lumen Flush) 4 ml IVPUSH PRN PRN PRN Reason: Protocol Last Admin: 09/15/17 07:22 Dose: 4 ml Daptomycin 750 mg/ Sodium (Chloride) 100 mls @ 50 mls/hr IVPB Q24H DIAN PRN Reason: Protocol Last Admin: 09/14/17 16:51 Dose: 50 mls/hr Ceftaroline Fosamil 600 mg/ (Dextrose) 100 mls @ 100 mls/hr IVPB Q8H-IV DIAN PRN Reason: Protocol Last Admin: 09/15/17 09:46 Dose: 100 mls/hr Insulin Aspart (Novolog Vial Sliding Scale -) 1 vial SQ ACHS DIAN PRN Reason: Protocol Last Admin: 09/15/17 12:08 Dose: 4 units Insulin Detemir (Levemir Vial) 10 units SQ HS [facility] Last Admin: 09/14/17 21:41 Dose: 10 units Levetiracetam (Keppra -) 500 mg PO BID [facility] Last Admin: 09/15/17 09:45 Dose: 500 mg Levothyroxine Sodium (Synthroid -) 150 mcg PO DAILY@0700 [facility] Last Admin: 09/15/17 06:15 Dose: 150 mcg Lidocaine (Lidoderm Patch -) 1 patch TP DAILY [facility] Last Admin: 09/15/17 09:46 Dose: 1 patch Miscellaneous (Duragesic Patch Waste) 1 each TD PRN PRN PRN Reason: PAIN Miscellaneous (Lidoderm Patch Removal) 1 each MC DAILY@2200 [facility] Last Admin: 09/14/17 21:41 Dose: 1 each Mupirocin (Bactroban 2% Cream -) 1 applic TP TID [facility] Last Admin: 09/15/17 06:14 Dose: 1 applic Ondansetron HCl (Zofran Injection) 4 mg IVPUSH Q6H PRN PRN Reason: NAUSEA AND/OR VOMITING Oxycodone HCl (Roxicodone -) 5 mg PO Q4H PRN PRN Reason: PAIN LEVEL 6-10 Last Admin: 09/15/17 09:45 Dose: 5 mg Pantoprazole Sodium (Protonix -) 40 mg PO DAILY [facility] Last Admin: 09/15/17 09:46 Dose: 40 mg Polyethylene Glycol (Miralax (For Daily Use) -) 17 gm PO DAILY [facility] Last Admin: 09/15/17 09:46 Dose: 17 grams - Objective Vital Signs: Vital Signs Temperature 97.6 F 09/15/17 05:00 Pulse Rate 72 09/15/17 05:00 Respiratory Rate 20 09/15/17 05:00 Blood Pressure 156/82 09/15/17 05:00 O2 Sat by Pulse Oximetry (%) 97 09/14/17 21:00 Constitutional: Yes: No Distress, Calm Neck: Yes: Supple Cardiovascular: Yes: Regular Rate and Rhythm Respiratory: Yes: Regular, Diminished Gastrointestinal: Yes: Normal Bowel Sounds, Soft Edema: No Labs: CBC, BMP 09/14/17 06:00 09/14/17 06:00 INR, PTT INR 1.07 (0.82-1.09) 09/07/17 17:38 Problem List - Problems (1) MRSA bacteremia Code(s): R78.81 - BACTEREMIA (2) Colon cancer metastasized to multiple sites Code(s): C18.9 - MALIGNANT NEOPLASM OF COLON, UNSPECIFIED (3) Brain metastases Code(s): C79.31 - SECONDARY MALIGNANT NEOPLASM OF BRAIN (4) Hypothyroidism Code(s): E03.9 - HYPOTHYROIDISM, UNSPECIFIED Qualifiers: Hypothyroidism type: unspecified Qualified Code(s): E03.9 - Hypothyroidism , unspecified (5) Hypertension Code(s): I10 - ESSENTIAL (PRIMARY) HYPERTENSION Qualifiers: Hypertension type: essential hypertension Qualified Code(s): I10 - Essential (primary) hypertension (6) Pyogenic skin abscess due to bacteria Code(s): L02.91 - CUTANEOUS ABSCESS, UNSPECIFIED; B96.89 - OTH BACTERIAL AGENTS THE CAUSE OF DISEASES CLASSD [id number] Assessment/Plan 1. MRSA bacteremia suspect line sepsis s/p I&D of back abscess/removal of port 2. Furuncles s/p I&D 3. Metastatic colon cancer to lungs and brain post chemotherapy, left tibia and femur 4. Type 2 DM 5- HTN 6. Hypothyroidism P:1. Daptomycin and observe for blood culture clearance post port removal, if MRSA bacteremia persists then would consider DIANA to exclude endocarditis 2. Continue Vasotec 20 qd, course of steroids with GI protection, seizure prophylaxis 3. DVT prophylaxis
--- NOTE | 2017-09-15 12:37 | PN ---
Teaching Attending Note Name of Resident: Burke Vuong ATTENDING PHYSICIAN STATEMENT I saw and evaluated the patient. I reviewed the resident's note and discussed the case with the resident. I agree with the resident's findings and plan as documented. SUBJECTIVE: No fever or chills , has abd pain that started last night . NO nausea, feels worse today . OBJECTIVE: NAD, Awake and cooperative CV: RRR, no MRG Lungs: CTAB Abd: distended, decreased BS on L sied. TTP in LLQ Ext: no edema or erythema . TTP over L upper leg below the knee Skin, multiple lesions with different stages, erythema, scabbed lesions, and ulcerated indurated areas surgical dressing on Lower back , dressing removed, there is a clean packing in wound , with no surrounding erythema . MS: decreased range of motion in R shoulder ( worse) , tenderness to palpation over shoulder , no erythema . ASSESSMENT AND PLAN: Very unfortunate 61 y/o lady with h/o met colon cancer to lungs and brain , s/p chemo , and other medical problems who presented with skin lesions and was found to have MRSA bacteremia. 1- MRSA bacteremia: COnt to be bacteremic - follow repeat cx form this am - cont dapto and ceftaroline - ? DIANA 2- ABd pain: ABd exam is concerning for bowel obstruction/ileus - check Lactic acid - check CT of Abd/Pelvis with Iv and PO contrast . - NPO for now. might start IVF if to cont NPO 3- Infected Skin lesions: - cont Abx 4- New diagnosis of diabetes. - cont SSI - cont levemir 5- Metastatic colon cancer: - cont decadron taper. 2 q 8h for now - MRI with bone mets in tibia . ? Radiation - cont fentanyl patch , lidocaine patch and oxy 6- R shoulder pain: no suspicion for septic joint per ortho PT and pain mgt 7- HTN: cont enalapril Code status: DNI. Not DNR d/w pt and her son at bed side
[2017-09-15] MEDS: DEXAMETHASONE 4 MG TABLET (FP) PO SCH ×2 (13:38→22:40)
--- NOTE | 2017-09-15 14:09 | PN ---
Progress Note (short form) - Note Progress Note: alert port removed 09/10 abdominal pain overnight now lessened Vital Signs Period Temp Pulse Resp BP Sys/Gresham Pulse Ox Last 24 Hr 97.3 F-98.2 F 63-98 20-20 126-156/71-86 97 pustular lesions noted- drying cor-rrr lung clear abd soft,mild discomfort to palpation +BS ext no edema Microbiology 09/13/17 08:00 Blood - Peripheral Venous Blood Culture - Preliminary Pending Organism 09/13/17 06:00 Blood - Peripheral Venous Blood Culture - Preliminary Staphylococcus Latex Coag Pos 09/11/17 15:30 Blood - Peripheral Venous Blood Culture - Final Presumptive Mrsa (Pbp2a Pos) 09/11/17 19:00 Blood - Peripheral Venous Blood Culture - Final Presumptive Mrsa (Pbp2a Pos) 09/07/17 Unknown Back Gram Stain - Final 09/07/17 Unknown Back Wound Culture - Final Proteus Mirabilis Mr S Aureus Enterococcus Faecalis 09/09/17 06:00 Blood - Peripheral Venous Blood Culture - Final Presumptive Mrsa (Pbp2a Pos) 09/09/17 06:00 Blood - Peripheral Venous Blood Culture - Final Mr S Aureus 09/08/17 11:18 Serum Cryptococcal Antigen - Final 09/08/17 12:30 Blood - Sakshi Cath Blood Culture - Final Presumptive Mrsa (Pbp2a Pos) 09/08/17 11:25 Blood - Sakshi Cath Blood Culture - Final Mr S Aureus 09/07/17 17:38 Blood - Peripheral Venous Blood Culture - Final Presumptive Mrsa (Pbp2a Pos) 09/07/17 17:38 Blood - Peripheral Venous Blood Culture - Final Mr S Aureus 09/08/17 11:00 Wound Viral Culture - Preliminary a/p mrsa bacteremia-port removed port infecion skin lesions- staph continue daptomycin/ceftaroline penicillin allergy rash and itching positive bone scan left femur- MRI pending metastatic colon cancer -on decadron for brain lesion-being tapered thrombocytopenia- suspect secondary to infection-improved overall prognosis is poor d/w cardiology- she is not a candidate for surgical valve replacement she is on maximal medical therapy not much more to offer d/w hospitalist advanced directives continue to be discussed with family and patient Problem List - Problems (1) Bacteremia Code(s): R78.81 - BACTEREMIA (2) Skin lesions, generalized Code(s): L98.9 - DISORDER OF THE SKIN AND SUBCUTANEOUS TISSUE, UNSPECIFIED (3) Colon cancer metastasized to multiple sites Code(s): C18.9 - MALIGNANT NEOPLASM OF COLON, UNSPECIFIED
--- NOTE | 2017-09-15 15:37 | PN ---
Physical Exam: SUBJECTIVE: Patient seen and examined Overnight patient had abdominal pain and gas. Patient feels very drained. Shoulder pain is worse. Patient continues to have abdominal pain. LLE pain is worse as well OBJECTIVE: Vital Signs Period Temp Pulse Resp BP Sys/Gresham Pulse Ox Last 24 Hr 97.6 F-98.2 F 63-74 20-20 126-156/71-84 97-97 GENERAL: Awake, alert, and fully oriented. No acute distress. HEAD: +scattered bleeding, excorciated lesions on face with 1 on left forehead draining pus. EYES: Pupils equal, round and reactive to light, extraocular movements intact, sclera anicteric, conjunctiva clear. EARS, NOSE, THROAT: Oropharynx clear without exudates. Moist mucous membranes. NECK: Normal range of motion, supple, L TLC LUNGS: Breath sounds equal, clear to auscultation bilaterally. No wheezes, and no crackles. No accessory muscle use. HEART: Regular rate and rhythm, normal S1 and S2 without murmur, rub or gallop. ABDOMEN: Soft, obese, Diffuse tenderness, +mildly distended, normoactive bowel sounds, no guarding, no rebound, no masses. MUSCULOSKELETAL: +TTP R shoulder with limited active and passive ROM LOWER EXTREMITIES: 2+ posterior tibial pulses, warm, well-perfused. +LLE calf tenderness NEUROLOGICAL: Cranial nerves II-XII intact. Right arm extension 4/5. Shoulder abduction 4/5. 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 Decreased ROM of right shoulder. SKIN: +scattered ulcerative nodules throughout body (face, arms, back, legs) with few purulent draining furuncles. No new lesions Laboratory Results - last 24 hr 09/14/17 09/14/17 09/15/17 16:53 21:27 05:52 POC Glucometer 320 214 163 Lactic Acid 09/15/17 09/15/17 11:32 13:20 POC Glucometer 229 Lactic Acid 1.8 Active Medications Generic Name Dose Route Start Last Admin Trade Name Freq PRN Reason Stop Dose Admin Dexamethasone 2 mg 09/15/17 07:20 09/15/17 13:38 Decadron - PO 2 mg TID DIAN Administration Docusate Sodium 100 mg 09/10/17 14:43 09/15/17 09:45 Colace - PO 100 mg Q8H PRN Administration CONSTIPATION Enalapril Maleate 20 mg 09/11/17 10:00 09/15/17 09:46 Vasotec - PO 20 mg DAILY DIAN Administration Fentanyl 1 patch 09/12/17 18:00 09/12/17 17:04 Duragesic 25mcg Patch - TD 09/16/17 17:59 1 patch Q72H DIAN Administration IV Flush 4 ml 09/10/17 14:43 09/15/17 07:22 Triple Lumen Flush IVPUSH 4 ml PRN PRN Administration Protocol Daptomycin 750 mg/ Sodium 100 mls @ 50 mls/hr 09/10/17 17:00 09/14/17 16:51 Chloride IVPB 50 mls/hr Q24H DIAN Administration Protocol Ceftaroline Fosamil 600 mg/ 100 mls @ 100 mls/hr 09/12/17 19:00 09/15/17 09: 46 Dextrose IVPB 100 mls/hr Q8H-IV DIAN Administration Protocol Insulin Aspart 1 vial 09/10/17 16:30 09/15/17 12:08 Novolog Vial Sliding Scale - SQ 4 units ACHS DIAN Administration Protocol Insulin Detemir 10 units 09/12/17 22:00 09/14/17 21:41 Levemir Vial SQ 10 units HS DIAN Administration Levetiracetam 500 mg 09/10/17 22:00 09/15/17 09:45 Keppra - PO 500 mg BID DIAN Administration Levothyroxine Sodium 150 mcg 09/11/17 07:00 09/15/17 06:15 Synthroid - PO 150 mcg DAILY@0700 DIAN Administration Lidocaine 1 patch 09/11/17 10:00 09/15/17 09:46 Lidoderm Patch - TP 1 patch DAILY DIAN Administration Miscellaneous 1 each 09/10/17 14:43 Duragesic Patch Waste TD PRN PRN PAIN Miscellaneous 1 each 09/10/17 22:00 09/14/17 21:41 Lidoderm Patch Removal MC 1 each DAILY@2200 DIAN Administration Mupirocin 1 applic 09/10/17 22:00 09/15/17 14:19 Bactroban 2% Cream - TP 1 applic TID DIAN Administration Ondansetron HCl 4 mg 09/10/17 14:38 Zofran Injection IVPUSH Q6H PRN NAUSEA AND/OR VOMITING Oxycodone HCl 5 mg 09/10/17 14:43 09/15/17 15:05 Roxicodone - PO 5 mg Q4H PRN Administration PAIN LEVEL 6-10 Pantoprazole Sodium 40 mg 09/13/17 10:00 09/15/17 09:46 Protonix - PO 40 mg DAILY DIAN Administration Polyethylene Glycol 17 gm 09/10/17 17:23 09/15/17 09:46 Miralax (For Daily Use) - PO 17 grams DAILY DIAN Administration ASSESSMENT/PLAN: 61 year old F with pmh of metastatic colon cancer to lungs/brain/bone s/p chemo presented with new onset skin lesions found to have MRSA bacteremia #MRSA bacteremia and skin lesions -Repeat cx drawn this morning -Continue Daptomycin 750 mg q24h and Ceftaroline 600 mg q8h -ID on board -Patient may likely need DIANA #Metastatic Colon Cancer -Decadron 2mg TID -Pain control with fentanyl, oxycodone, and lidocaine patch -MRI of tibia-- bone mets #Abdominal pain, ?SBO vs ischemia/perforation -Lactic acid normal -CT abd/pelvis with po/iv contrast -Will keep npo #DM, newly diagnosed -ISS -Levemir 10 sq hs #HTN -Continue enalapril #FEN/GI -no ivf -wnl -npo #PPx -Scds -protonix Visit type - Emergency Visit Emergency Visit: Yes ED Registration Date: 09/07/17 Care time: The patient presented to the Emergency Department on the above date and was hospitalized for further evaluation of their emergent condition. - New Patient This patient is new to me today: No - Critical Care Critical Care patient: No
[2017-09-15] MEDS ORDERED: oxyCODONE HCL 5 MG TABLET PO ONE (16:07)
[2017-09-15] MEDS ORDERED: morphine SULFATE 4 MG/ML VIAL IVPUSH ONE ×2 (16:31→19:32)
[2017-09-15] MEDS: DAPTOMYCIN 750 MG in SODIUM CHLORIDE 100 ML IVPB SCH (20:26)
[2017-09-15] MEDS: fentaNYL 25mcg/hr PATCH.TD72 TD SCH (22:38)
[2017-09-15] MEDS: LIDOCAINE PATCH REMOVAL MC SCH (22:41)
[2017-09-15] MEDS: INSULIN DETEMIR 100 UNITS/ML MDV SQ SCH (22:42)
--- NOTE | 2017-09-15 23:45 | PN ---
Progress Note (short form) - Note Progress Note: Patient seen and examined pain better Last Vital Signs Temp Pulse Resp BP Pulse Ox 97.6 F 65 18 122/67 96 09/15/17 21:00 09/15/17 21:00 09/15/17 21:00 09/15/17 21:00 09/15/17 21:00 Cor: RSR, No murmurs, No gallops Lungs: Clear to P&A Abd: Soft, Normal bowel sounds, No organomegaly Ext:No significant edema Home Medication List Medication Instructions Recorded Confirmed Type Enalapril Maleate [Vasotec] 20 mg PO DAILY 12/24/16 09/07/17 History Levothyroxine [Synthroid -] 150 mcg PO DAILY 12/24/16 09/07/17 History Simvastatin [Zocor -] 10 mg PO HS 07/22/17 09/07/17 History Active Medications Generic Name Dose Route Start Last Admin Trade Name Freq PRN Reason Stop Dose Admin Dexamethasone 2 mg 09/15/17 07:20 09/15/17 22:40 Decadron - PO 2 mg TID DIAN Administration Docusate Sodium 100 mg 09/10/17 14:43 09/15/17 09:45 Colace - PO 100 mg Q8H PRN Administration CONSTIPATION Enalapril Maleate 20 mg 09/11/17 10:00 09/15/17 09:46 Vasotec - PO 20 mg DAILY DIAN Administration Fentanyl 1 patch 09/12/17 18:00 09/15/17 22:38 Duragesic 25mcg Patch - TD 09/16/17 17:59 1 patch Q72H DIAN Administration IV Flush 4 ml 09/10/17 14:43 09/15/17 07:22 Triple Lumen Flush IVPUSH 4 ml PRN PRN Administration Protocol Daptomycin 750 mg/ Sodium 100 mls @ 50 mls/hr 09/10/17 17:00 09/15/17 20:26 Chloride IVPB 50 mls/hr Q24H DIAN Administration Protocol Ceftaroline Fosamil 600 mg/ 100 mls @ 100 mls/hr 09/12/17 19:00 09/16/17 01: 11 Dextrose IVPB 100 mls/hr Q8H-IV DIAN Administration Protocol Insulin Aspart 1 vial 09/10/17 16:30 03/26/18 22:42 Novolog Vial Sliding Scale - SQ Not Given ACHS [facility] Protocol Insulin Detemir 10 units 09/12/17 22:00 09/15/17 22:42 Levemir Vial SQ Not Given HS [facility] Levetiracetam 500 mg 09/10/17 22:00 09/15/17 22:41 Keppra - PO 500 mg BID DIAN Administration Levothyroxine Sodium 150 mcg 09/11/17 07:00 09/15/17 06:15 Synthroid - PO 150 mcg DAILY@0700 DIAN Administration Lidocaine 1 patch 09/11/17 10:00 09/15/17 09:46 Lidoderm Patch - TP 1 patch DAILY DIAN Administration Miscellaneous 1 each 09/10/17 14:43 09/15/17 23:22 Duragesic Patch Waste TD 1 each PRN PRN Administration PAIN Miscellaneous 1 each 09/10/17 22:00 09/15/17 22:41 Lidoderm Patch Removal MC 1 each DAILY@2200 DIAN Administration Mupirocin 1 applic 09/10/17 22:00 09/15/17 22:38 Bactroban 2% Cream - TP 1 applic TID DIAN Administration Ondansetron HCl 4 mg 09/10/17 14:38 Zofran Injection IVPUSH Q6H PRN NAUSEA AND/OR VOMITING Oxycodone HCl 5 mg 09/10/17 14:43 09/15/17 15:05 Roxicodone - PO 5 mg Q4H PRN Administration PAIN LEVEL 6-10 Pantoprazole Sodium 40 mg 09/13/17 10:00 09/15/17 09:46 Protonix - PO 40 mg DAILY DIAN Administration Polyethylene Glycol 17 gm 09/10/17 17:23 09/15/17 09:46 Miralax (For Daily Use) - PO 17 grams DAILY DIAN Administration A/P 61 year old female with metastatic colon cancer with port on steroids for brain mets-s/p RT no recent chemotherapy-since June now admitted with worsening skin lesions for the last 3 weeks staph bacteremia port infection skin lesions s/p port removal pain control --dr. sanchez consult morphine iv prn
[2017-09-16] MEDS: CEFTAROLINE FOSAMIL ACETATE 600 MG in DEXTROSE 5%-WATER - 100 ML IVPB SCH ×3 (01:11→17:11)
[2017-09-16] MEDS: MUPIROCIN CA 2% TOPICAL CREAM 15 GM TUBE TP SCH ×3 (06:06→21:50)
[2017-09-16] MEDS: DEXAMETHASONE 4 MG TABLET (FP) PO SCH ×3 (06:15→21:49)
[2017-09-16] MEDS: INSULIN SLIDING SCALE (NOVOLOG) 1 VIAL SQ SCH ×4 (06:15→21:48)
[2017-09-16] MEDS: LEVOTHYROXINE NA 150 MCG TABLET PO SCH (06:16)
[2017-09-16] MEDS: TRIPLE LUMEN FLUSH 4 ML ML IVPUSH PRN (07:22)
[2017-09-16 07:46] LABS: HEMATOCRIT 29.6 % (32.4-45.2); HEMOGLOBIN 9.9 GM/dL (10.7-15.3); MCH 29.6 pg (25.7-33.7); MCHC 33.5 g/dl (32.0-36.0); MEAN CELL VOLUME 88.2 fl (80-96); MEAN PLT VOLUME 7.6 fl (7.5-11.1); PLATELET COUNT 205 K/MM3 (134-434); RBC 3.35 M/mm3 (3.60-5.2); RDW 18.6 % (11.6-15.6); WHITE BLOOD COUNT 11.7 K/mm3 (4.0-10.0)
[2017-09-16 08:15] LABS: CHLORIDE 97 mmol/L (98-107); POTASSIUM 4.4 mmol/L (3.5-5.1); SODIUM 134 mmol/L (136-145)
[2017-09-16 08:21] LABS: ALBUMIN 2.2 g/dl (3.4-5.0); ALK PHOS 142 U/L (45-117); ANION GAP 10 (8-16); BILIRUBIN,TOTAL 0.6 mg/dL (0.2-1.0); BLOOD UREA NITROGEN 25 mg/dL (7-18); CALCIUM 8.2 mg/dL (8.5-10.1); CO2 27 mmol/L (21-32); CREATININE 0.5 mg/dL (0.55-1.02); GLUCOSE,RANDOM 122 mg/dL (74-106); SGOT/AST 15 U/L (15-37); SGPT/ALT 46 U/L (12-78); TOT PROT 5.8 g/dl (6.4-8.2)
--- NOTE | 2017-09-16 08:54 | PN ---
Teaching Attending Note Name of Resident: Burke Vuong ATTENDING PHYSICIAN STATEMENT I saw and evaluated the patient. I reviewed the resident's note and discussed the case with the resident. I agree with the resident's findings and plan as documented. SUBJECTIVE: cont to have pain in L eg and R shoulder . painin Abd . passed gas this am , and had solid BM yesterday. No N/V OBJECTIVE: NAD, Awake and cooperative CV: RRR, no MRG Lungs: CTAB Abd: distended especially in RUQ , with tenderness in LLQ and RUQ. , decreased BS on L sied. nl BS in RUQ . Ext: no edema or erythema . TTP over L upper leg below the knee Skin, multiple lesions with different stages surgical dressing on Lower back , dressing was not removed today . o . MS: decreased range of motion in R shoulder , tenderness to palpation over shoulder and L upper leg ASSESSMENT AND PLAN: Very unfortunate 61 y/o lady with h/o met colon cancer to lungs and brain , s/p chemo , and other medical problems who presented with skin lesions and was found to have MRSA bacteremia. 1- Small Bowel obstruction: likely paertial as passing gas and BM . transition point at Abd wall hernia. NL lactic last ngiht - start IVF - No need for NGT as no N/V yet. - repeat LActic - discussed with patient poor prognosis given her metastatic cancer. discussed possible need for suregry for this. she is not sure what she needs to do. She would prefer surgical input first , then will discuss goals of care. 2- MRSA bacteremia: - follow repeat cx form yesterday - cont dapto and ceftaroline - ? DIANA . 3- New diagnosis of diabetes. - dc levemir as NPO and sugar is NL this am - change SSI to q 6h and loose 4- Metastatic colon cancer: - cont decadron taper. 2 q 8h for now -Bone mets might need Radiation - cont fentanyl patch , lidocaine patch and oxy - pain consult 4- R shoulder pain: no suspicion for septic joint per ortho PT and pain mgt 5- HTN: cont enalapril Code status: DNI. Not DNR Poor prognosis in general . prognosis is worse now with SBO. d/w pt goals of care. She would like surgical input first, then when son is here will have another discussion.
[2017-09-16 10:10] LABS: ANISOCYTOSIS 1+; PLATELET ESTIMATE ADEQUATE
[2017-09-16] MEDS ORDERED: INSULIN (NOVOLOG) ASPART 100 UNITS/ML 10ML VIAL ONE (10:11)
[2017-09-16] MEDS ORDERED: PT OWN MED DRAWER 7, Y5N ONE ×2 (10:11→16:57)
--- NOTE | 2017-09-16 10:12 | PN ---
Progress Note, Physician Chief Complaint: Events noted Abdominal CT noted with partial vs. early complete SBO, but had bowel movement and passed gas Also complains of left leg discomfort and right arm movement difficulty and limited movement History of Present Illness: Patient was seen and examined. Awake and alert. Chart was reviewed Denies chest pain, SOB or palpitations Note SBO ? partial - Current Medication List Current Medications: Active Medications Dexamethasone (Decadron -) 2 mg PO TID [facility] Last Admin: 09/16/17 06:15 Dose: 2 mg Docusate Sodium (Colace -) 100 mg PO Q8H PRN PRN Reason: CONSTIPATION Last Admin: 09/15/17 09:45 Dose: 100 mg Enalapril Maleate (Vasotec -) 20 mg PO DAILY [facility] Last Admin: 09/15/17 09:46 Dose: 20 mg Fentanyl (Duragesic 25mcg Patch -) 1 patch TD Q72H [facility] Stop: 09/16/17 17:59 Last Admin: 09/15/17 22:38 Dose: 1 patch IV Flush (Triple Lumen Flush) 4 ml IVPUSH PRN PRN PRN Reason: Protocol Last Admin: 09/16/17 07:22 Dose: 4 ml Daptomycin 750 mg/ Sodium (Chloride) 100 mls @ 50 mls/hr IVPB Q24H DIAN PRN Reason: Protocol Last Admin: 09/15/17 20:26 Dose: 50 mls/hr Ceftaroline Fosamil 600 mg/ (Dextrose) 100 mls @ 100 mls/hr IVPB Q8H-IV DIAN PRN Reason: Protocol Last Admin: 09/16/17 01:11 Dose: 100 mls/hr Sodium Chloride (Normal Saline -) 1,000 mls @ 75 mls/hr IV ASDIR [facility] Insulin Aspart (Novolog Vial Sliding Scale -) 1 vial SQ Q6H DIAN PRN Reason: Protocol Levetiracetam (Keppra -) 500 mg PO BID [facility] Last Admin: 09/15/17 22:41 Dose: 500 mg Levothyroxine Sodium (Synthroid -) 150 mcg PO DAILY@0700 [facility] Last Admin: 09/16/17 06:16 Dose: 150 mcg Lidocaine (Lidoderm Patch -) 1 patch TP DAILY [facility] Last Admin: 09/15/17 09:46 Dose: 1 patch Miscellaneous (Duragesic Patch Waste) 1 each TD PRN PRN PRN Reason: PAIN Last Admin: 09/15/17 23:22 Dose: 1 each Miscellaneous (Lidoderm Patch Removal) 1 each MC DAILY@2200 [facility] Last Admin: 09/15/17 22:41 Dose: 1 each Morphine Sulfate (Morphine Sulfate) 1 mg IVPUSH Q4H PRN PRN Reason: PAIN LEVEL 1-5 Mupirocin (Bactroban 2% Cream -) 1 applic TP TID [facility] Last Admin: 09/16/17 06:06 Dose: 1 applic Ondansetron HCl (Zofran Injection) 4 mg IVPUSH Q6H PRN PRN Reason: NAUSEA AND/OR VOMITING Pantoprazole Sodium (Protonix -) 40 mg PO DAILY [facility] Last Admin: 09/15/17 09:46 Dose: 40 mg Polyethylene Glycol (Miralax (For Daily Use) -) 17 gm PO DAILY [facility] Last Admin: 09/15/17 09:46 Dose: 17 grams - Objective Vital Signs: Vital Signs Temperature 97.6 F 09/16/17 05:00 Pulse Rate 68 09/16/17 05:00 Respiratory Rate 20 09/16/17 05:00 Blood Pressure 139/75 09/16/17 05:00 O2 Sat by Pulse Oximetry (%) 96 09/15/17 21:00 HENT: Yes: Atraumatic Neck: Yes: Supple Cardiovascular: Yes: Regular Rate and Rhythm, S1, S2 Respiratory: Yes: Diminished Gastrointestinal: Yes: Tenderness (slight) Edema: No Labs: CBC, BMP 09/16/17 06:00 09/16/17 06:00 Problem List - Problems (1) Bacteremia Code(s): R78.81 - BACTEREMIA (2) Colon cancer metastasized to multiple sites Code(s): C18.9 - MALIGNANT NEOPLASM OF COLON, UNSPECIFIED (3) Hypertension Code(s): I10 - ESSENTIAL (PRIMARY) HYPERTENSION Qualifiers: Hypertension type: essential hypertension Qualified Code(s): I10 - Essential (primary) hypertension (4) Hypothyroidism Code(s): E03.9 - HYPOTHYROIDISM, UNSPECIFIED Qualifiers: Hypothyroidism type: unspecified Qualified Code(s): E03.9 - Hypothyroidism , unspecified (5) Seizure Code(s): R56.9 - UNSPECIFIED CONVULSIONS Assessment/Plan 1. MRSA bacteremia suspect line sepsis s/p I&D of back abscess/removal of port 2. Furuncles s/p I & D 3. Metastatic colon cancer to lungs and brain post chemotherapy 4. Type 2 diabetes mellitus 5- HTN 6. Hypothyroidism PLAN: 1. Antibiotics, if MRSA bacteremia persists then would consider DIANA to exclude endocarditis (09/15 culture is negative so far) 2. Continue Vasotec. Continue steroids with GI protection and seizure prophylaxis 3. DVT prophylaxis 4. Currently NPO. Monitor abdomen. Further plans are to follow Supportive care Alex Lin MD
[2017-09-16] MEDS: SODIUM CHLORIDE 1,000 ML IV SCH (10:19)
[2017-09-16] MEDS: LIDOCAINE 5% TOPICAL PATCH TP SCH (10:19)
[2017-09-16] MEDS: ENALAPRIL MALEATE 10 MG TABLET (FP) PO SCH (10:20)
[2017-09-16] MEDS: POLYETHYLENE GLYCOL 3350 119 GM BTL PO SCH (10:20)
[2017-09-16] MEDS: PANTOPRAZOLE 40 MG TABLET (FP) PO SCH (10:20)
[2017-09-16] MEDS: levETIRAcetam 500 MG TABLET (FP) PO SCH ×2 (10:20→21:49)
--- NOTE | 2017-09-16 10:58 | PN ---
Progress Note (short form) - Note Progress Note: alert port removed 09/[address] scan ab/pelvis with mets and SBO Vital Signs Period Temp Pulse Resp BP Sys/G[place] Pulse Ox Last 24 Hr 97.4 F-97.8 F 64-68 18-20 122-146/67-80 96 no conjunctival hemorrhages cor-rrr lungs clear abd soft,nt back incision no pus lesions drying purulent lesion left wrist- drained CBC, BMP 09/16/17 06:00 09/16/17 06:00 Microbiology 09/13/17 08:00 Blood Culture - Preliminary Blood - Peripheral Venous Staphylococcus Latex Coag Pos 09/15/17 08:08 Blood Culture - Preliminary Blood - Peripheral Venous NO GROWTH OBTAINED AFTER 24 HOURS, INCUBATION TO CONTINUE FOR 4 DAYS. 09/15/17 06:40 Blood Culture - Preliminary Blood - Peripheral Venous NO GROWTH OBTAINED AFTER 24 HOURS, INCUBATION TO CONTINUE FOR 4 DAYS. 09/13/17 06:00 Blood Culture - Preliminary Blood - Peripheral Venous Staphylococcus Latex Coag Pos a/p mrsa bacteremia-port removed port infecion skin lesions- staph continue daptomycin/ceftaroline she will require intermediate iv antibiotics cultures form 09/15 negative at 24 hours SBO penicillin allergy rash and itching positive bone scan left femur- MRI pending metastatic colon cancer -on decadron for brain lesion-being tapered thrombocytopenia- suspect secondary to infection-improved overall prognosis is poor d/w cardiology- she is not a candidate for surgical valve replacement she is on maximal medical therapy not much more to offer d/w son at bedside advanced directives continue to be discussed with family and patient Problem List - Problems (1) Bacteremia Code(s): R78.81 - BACTEREMIA (2) Skin lesions, generalized Code(s): L98.9 - DISORDER OF THE SKIN AND SUBCUTANEOUS TISSUE, UNSPECIFIED (3) Colon cancer metastasized to multiple sites Code(s): C18.9 - MALIGNANT NEOPLASM OF COLON, UNSPECIFIED
--- NOTE | 2017-09-16 11:05 | OP ---
DATE OF OPERATION: 09/10/2017 PREOPERATIVE DIAGNOSIS: Soft tissue abscess of the skin of the back and methicillin-resistant Staphylococcus aureus sepsis. POSTOPERATIVE DIAGNOSIS: Soft tissue abscess of the skin of the back and methicillin-resistant Staphylococcus aureus sepsis. PROCEDURE: Incision and drainage of back abscess and removal of port. SURGEON: Rodney Cohen MD ANESTHESIA: Local with IV sedation. OPERATIVE FINDINGS: There was an acute bacterial skin and skin structure infection of the mid back with a tract extending down through the subcutaneous tissue to the musculature of the back and an unremarkable port site on the right chest. The rest of the findings were unremarkable. DESCRIPTION OF PROCEDURE: The patient was placed on the operating room table in the left lateral decubitus position. A time-out was taken, and the area over the soft tissue abscess was prepped with Betadine and draped in a sterile fashion. Local anesthesia consisting of 1% lidocaine and 0.5% Marcaine was injected and then incision made with a scalpel and taken down through skin and subcutaneous tissue. Copious purulent material was drained, and all loculations were broken up using digital exploration. Copious irrigation with saline and peroxide in a 50/50 concentration was carried out. Hemostasis was secured with electrocautery and then packed with 1-inch iodoform gauze followed by dry sterile dressings. The patient was then turned into the supine position, and the right shoulder and anterior chest over the port were prepped with ChloraPrep and draped in a sterile fashion. Local anesthesia was again injected consisting of 1% Xylocaine and 0.5 % Marcaine around the palpable port and then a skin incision made and taken down through skin and subcutaneous tissue. The port was bluntly dissected out from its pocket and removed with the catheter intact. Digital pressure was held for 15 minutes at the venotomy site and then there was no evidence of bleeding. Hemostasis was secured with electrocautery and the wound irrigated with sterile saline. The deep tissue was reapproximated with interrupted 2-0 Vicryl and the skin edges reapproximated with surgical linda. Dry sterile dressings were placed and the procedure terminated at this point and the patient transferred to the post anesthesia care unit in stable condition awake and alert. ESTIMATED BLOOD LOSS: Minimal. DRAINS: None. SPECIMEN: Port to Pathology. I, Rodney Cohen, was physically present in the operating room from the time the patient was placed on the operating room table until she was transferred to the post anesthesia care unit in [facility]. MD ISI Workman/[id number] MTDD
--- NOTE | 2017-09-16 13:55 | PN ---
Physical Exam: SUBJECTIVE: Patient seen and examined Overnight patient with ton of discomfort in abdomen. Patient has passed flatus and had a BM yesterday. No fevers, chills, n/v. Still complains of pain in L leg and right shoulder OBJECTIVE: Vital Signs Period Temp Pulse Resp BP Sys/[place] Pulse Ox Last 24 Hr 97.3 F-97.8 F 64-68 18-20 122-146/67-80 96-98 GENERAL: Awake, alert, and fully oriented. No acute distress. HEAD: +scattered bleeding, excorciated lesions on face with 1 on left forehead draining pus. EYES: Pupils equal, round and reactive to light, extraocular movements intact, sclera anicteric, conjunctiva clear. EARS, NOSE, THROAT: Oropharynx clear without exudates. Moist mucous membranes. NECK: Normal range of motion, supple, L TLC LUNGS: Breath sounds equal, clear to auscultation bilaterally. No wheezes, and no crackles. No accessory muscle use. HEART: Regular rate and rhythm, normal S1 and S2 without murmur, rub or gallop. ABDOMEN: Soft, obese, Diffuse tenderness, +mildly distended, normoactive bowel sounds, no guarding, no rebound, no masses. MUSCULOSKELETAL: +TTP R shoulder with limited active and passive ROM LOWER EXTREMITIES: 2+ posterior tibial pulses, warm, well-perfused. +LLE calf tenderness NEUROLOGICAL: Cranial nerves II-XII intact. Right arm extension 4/5. Shoulder abduction 4/5. 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 Decreased ROM of right shoulder. SKIN: +scattered ulcerative nodules throughout body (face, arms, back, legs) with few purulent draining furuncles. No new lesions Laboratory Results - last 24 hr 09/15/17 09/15/17 09/16/17 13:20 22:33 06:00 WBC 11.7 H D RBC 3.35 L Hgb 9.9 L Hct 29.6 L MCV 88.2 MCH 29.6 MCHC 33.5 RDW 18.6 H Plt Count 205 MPV 7.6 Total Counted 100 Neutrophils % No Result Required. Neutrophils % (Manual) 74.0 Lymphocytes % No Result Required. Lymphocytes % (Manual) 16.0 D Monocytes % (Manual) 4 D Myelocytes % (Man) 4 H D Metamyelocytes 2 Platelet Estimate Adequate Anisocytosis 1+ Sodium Potassium Chloride Carbon Dioxide Anion Gap BUN Creatinine Creat Clearance w eGFR POC Glucometer 152 Random Glucose Lactic Acid 1.8 Calcium Total Bilirubin AST ALT Alkaline Phosphatase Total Protein Albumin 09/16/17 09/16/17 09/16/17 06:00 06:13 09:42 WBC RBC Hgb Hct MCV MCH MCHC RDW Plt Count MPV Total Counted Neutrophils % Neutrophils % (Manual) Lymphocytes % Lymphocytes % (Manual) Monocytes % (Manual) Myelocytes % (Man) Metamyelocytes Platelet Estimate Anisocytosis Sodium 134 L Potassium 4.4 Chloride 97 L Carbon Dioxide 27 Anion Gap 10 BUN 25 H Creatinine 0.5 L Creat Clearance w eGFR > 60 POC Glucometer 115 Random Glucose 122 H Lactic Acid 0.8 Calcium 8.2 L Total Bilirubin 0.6 AST 15 ALT 46 Alkaline Phosphatase 142 H Total Protein 5.8 L Albumin 2.2 L 09/16/17 10:26 WBC RBC Hgb Hct MCV MCH MCHC RDW Plt Count MPV Total Counted Neutrophils % Neutrophils % (Manual) Lymphocytes % Lymphocytes % (Manual) Monocytes % (Manual) Myelocytes % (Man) Metamyelocytes Platelet Estimate Anisocytosis Sodium Potassium Chloride Carbon Dioxide Anion Gap BUN Creatinine Creat Clearance w eGFR POC Glucometer 119 Random Glucose Lactic Acid Calcium Total Bilirubin AST ALT Alkaline Phosphatase Total Protein Albumin Active Medications Generic Name Dose Route Start Last Admin Trade Name Freq PRN Reason Stop Dose Admin Dexamethasone 2 mg 09/15/17 07:20 09/16/17 06:15 Decadron - PO 2 mg TID DIAN Administration Docusate Sodium 100 mg 09/10/17 14:43 09/15/17 09:45 Colace - PO 100 mg Q8H PRN Administration CONSTIPATION Enalapril Maleate 20 mg 09/11/17 10:00 09/16/17 10:20 Vasotec - PO 20 mg DAILY DIAN Administration Fentanyl 1 patch 09/12/17 18:00 09/15/17 22:38 Duragesic 25mcg Patch - TD 09/16/17 17:59 1 patch Q72H DIAN Administration IV Flush 4 ml 09/10/17 14:43 09/16/17 07:22 Triple Lumen Flush IVPUSH 4 ml PRN PRN Administration Protocol Daptomycin 750 mg/ Sodium 100 mls @ 50 mls/hr 09/10/17 17:00 09/15/17 20:26 Chloride IVPB 50 mls/hr Q24H DIAN Administration Protocol Ceftaroline Fosamil 600 mg/ 100 mls @ 100 mls/hr 09/12/17 19:00 09/16/17 10: 20 Dextrose IVPB 100 mls/hr Q8H-IV DIAN Administration Protocol Sodium Chloride 1,000 mls @ 75 mls/hr 09/16/17 09:00 09/16/17 10:19 Normal Saline - IV 75 mls/hr ASDIR DIAN Administration Insulin Aspart 1 vial 09/16/17 09:00 09/16/17 10:40 Novolog Vial Sliding Scale - SQ Not Given Q6H DIAN Protocol Levetiracetam 500 mg 09/10/17 22:00 09/16/17 10:20 Keppra - PO 500 mg BID DIAN Administration Levothyroxine Sodium 150 mcg 09/11/17 07:00 09/16/17 06:16 Synthroid - PO 150 mcg DAILY@0700 DIAN Administration Lidocaine 1 patch 09/11/17 10:00 09/16/17 10:19 Lidoderm Patch - TP 1 patch DAILY DIAN Administration Miscellaneous 1 each 09/10/17 14:43 09/15/17 23:22 Duragesic Patch Waste TD 1 each PRN PRN Administration PAIN Miscellaneous 1 each 09/10/17 22:00 09/15/17 22:41 Lidoderm Patch Removal MC 1 each DAILY@2200 DIAN Administration Morphine Sulfate 1 mg 09/16/17 01:29 Morphine Sulfate IVPUSH Q4H PRN PAIN LEVEL 1-5 Mupirocin 1 applic 09/10/17 22:00 09/16/17 06:06 Bactroban 2% Cream - TP 1 applic TID DIAN Administration Ondansetron HCl 4 mg 09/10/17 14:38 Zofran Injection IVPUSH Q6H PRN NAUSEA AND/OR VOMITING Pantoprazole Sodium 40 mg 09/13/17 10:00 09/16/17 10:20 Protonix - PO 40 mg DAILY DIAN Administration Polyethylene Glycol 17 gm 09/10/17 17:23 09/16/17 10:20 Miralax (For Daily Use) - PO 17 grams DAILY DIAN Administration ASSESSMENT/PLAN: 61 year old F with pmh of metastatic colon cancer to lungs/brain/bone s/p chemo presented with new onset skin lesions found to have MRSA bacteremia #MRSA bacteremia and skin lesions -Repeat cx drawn this morning -Continue Daptomycin 750 mg q24h and Ceftaroline 600 mg q8h -ID on board -Patient may need DIANA #Metastatic Colon Cancer -Decadron 2mg TID -Pain control with fentanyl, oxycodone, and lidocaine patch -MRI of tibia-- bone mets #Abdominal pain, Partial vs complete sbo -Lactic acid normal -CT abd/pelvis with po/iv contrast -Will keep npo, IVF started -Surgery consulted, patient is contemplating surgical intervention. Goals of care discussion with son. He will discuss with patient about further plan. #DM, newly diagnosed -ISS q6h -D/c levemir #HTN -Continue enalapril #FEN/GI -IVF -wnl -npo #PPx -Scds -Protonix Overall prognosis is quite poor Visit type - Emergency Visit Emergency Visit: Yes ED Registration Date: 09/07/17 Care time: The patient presented to the Emergency Department on the above date and was hospitalized for further evaluation of their emergent condition. - New Patient This patient is new to me today: No - Critical Care Critical Care patient: No
--- NOTE | 2017-09-16 19:10 | PN ---
Progress Note (short form) - Note Progress Note: Patient seen and examined Spent greater than 30 minutes with patient , son, and nurse interpreting . 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 Patient states she is willing to undergo surgery although it was discussed that even if surgery was considered it would not change outlook, prognosis or other ongoing problems. Currently she is declining NG tube. Tried to explain complexity of multiple problems and the stage of her illness she is at this time. Consider a surgical opininion. Consider imaging of painful LLE If she agrees, consider NG tube or long tube and GI follow up. After above , consider discussion of options available and long range plans/ T
[2017-09-16] MEDS: DAPTOMYCIN 750 MG in SODIUM CHLORIDE 100 ML IVPB SCH (20:05)
[2017-09-16] MEDS: morphine SULFATE 4 MG/ML VIAL IVPUSH PRN (20:06)
[2017-09-16] MEDS: LIDOCAINE PATCH REMOVAL MC SCH (21:50)
[2017-09-17] MEDS ORDERED: PT OWN MED DRAWER 7, Y5N ONE (02:09)
[2017-09-17] MEDS: CEFTAROLINE FOSAMIL ACETATE 600 MG in DEXTROSE 5%-WATER - 100 ML IVPB SCH ×3 (02:12→18:05)
[2017-09-17] MEDS: INSULIN SLIDING SCALE (NOVOLOG) 1 VIAL SQ SCH ×4 (02:14→22:33)
[2017-09-17] MEDS: LEVOTHYROXINE NA 150 MCG TABLET PO SCH (06:53)
[2017-09-17] MEDS: DEXAMETHASONE 4 MG TABLET (FP) PO SCH ×3 (06:53→22:34)
[2017-09-17] MEDS: MUPIROCIN CA 2% TOPICAL CREAM 15 GM TUBE TP SCH ×4 (06:55→22:35)
--- NOTE | 2017-09-17 07:07 | CONSULT ---
- Consultation REQUESTING PROVIDER: CONSULT REQUEST: We have been asked to surgically evaluate this patient for a small bowel obstruction PCP:Odessa Harrington HISTORY OF PRESENT ILLNESS:61 y/o female w/ metastatic colon ca developed nause and vomiting and abdominal pain while in the hospital; w/u reveals an sbo seconday to an incisional hernia; she has obstipation. PMHx: htn; hld; hypothyroid; metastatic colon ca to brain and long and possible lower extremity PSHx: colon resection Home Medications Medication Instructions Recorded Enalapril Maleate [Vasotec] 20 mg PO DAILY 12/24/16 Levothyroxine [Synthroid -] 150 mcg PO DAILY 12/24/16 Simvastatin [Zocor -] 10 mg PO HS 07/22/17 Dexamethasone [Decadron -] 4 mg PO Q6H #120 tablet 07/24/17 levETIRAcetam [Keppra -] 500 mg PO BID #60 tablet 07/24/17 Allergies Allergy/AdvReac Type Severity Reaction Status Date / Time ciprofloxacin [From Cipro] Allergy Severe Verified 09/07/17 17:17 ciprofloxacin HCl Allergy Severe Verified 09/07/17 17:17 [From Cipro] loratadine [From Claritin] Allergy Severe Verified 09/07/17 17:17 Penicillins Allergy Severe Verified 09/07/17 17:17 acetaminophen [From Tylenol] AdvReac Severe Verified 09/10/17 12:40 PHYSICAL EXAM: GENERAL: Awake, alert, and fully oriented, in no acute distress. HEAD: Normal with no signs of trauma. EYES: sclera anicteric, conjunctiva clear. NECK: Normal ROM, supple without lymphadenopathy, JVD, or masses. ABDOMEN: Soft, nontender, slightly distended and tympanitic, paucityof bowel sounds, no guarding, no rebound, no masses. No organomegaly. Palpable midline hernia; ? reduced ?. MUSCULOSKELETAL: Abormal ROM RUE No bony deformities or tenderness. No CVA tenderness. UPPER EXTREMITIES: 2+ pulses, warm, well-perfused. No cyanosis. Cap refill <2 seconds. No peripheral edema. LOWER EXTREMITIES: 2+ pulses, warm, well-perfused. No calf tenderness. No peripheral edema. NEUROLOGICAL: Normal speech, gait not observed. PSYCH: Cooperative. Good eye contact. Appropriate mood and affect. SKIN: Warm, dry, normal turgor, multiple areas of skin lesions; I and D site on the back; healing port site incision w/ linda present. Vital Signs Temperature 97.6 F 09/17/17 05:45 Pulse Rate 61 09/17/17 05:45 Respiratory Rate 20 09/17/17 05:45 Blood Pressure 141/70 09/17/17 05:45 O2 Sat by Pulse Oximetry (%) 95 09/16/17 20:18 Lab Results WBC 11.7 K/mm3 (4.0-10.0) H D 09/16/17 06:00 RBC 3.35 M/mm3 (3.60-5.2) L 09/16/17 06:00 Hgb 9.9 GM/dL (10.7-15.3) L 09/16/17 06:00 Hct 29.6 % (32.4-45.2) L 09/16/17 06:00 MCV 88.2 fl (80-96) 09/16/17 06:00 MCHC 33.5 g/dl (32.0-36.0) 09/16/17 06:00 RDW 18.6 % (11.6-15.6) H 09/16/17 06:00 Plt Count 205 K/MM3 (134-434) 09/16/17 06:00 Sodium 134 mmol/L (136-145) L 09/16/17 06:00 Potassium 4.4 mmol/L (3.5-5.1) 09/16/17 06:00 Chloride 97 mmol/L (98-107) L 09/16/17 06:00 Carbon Dioxide 27 mmol/L (21-32) 09/16/17 06:00 Anion Gap 10 (8-16) 09/16/17 06:00 BUN 25 mg/dL (7-18) H 09/16/17 06:00 Creatinine 0.5 mg/dL (0.55-1.02) L 09/16/17 06:00 Random Glucose 122 mg/dL (74-106) H 09/16/17 06:00 Calcium 8.2 mg/dL (8.5-10.1) L 09/16/17 06:00 Blood Type A POSITIVE 09/10/17 06:00 Antibody Screen Negative 09/10/17 06:00 INR 1.07 (0.82-1.09) 09/07/17 17:38 CT scan a/p reviewed; chart notes reviewed PLAN: Long d/w patient and son on [place] and later w/Dr.N. Kaiser; we sould at least try nasogatric decompression and f/u abdominal xrays if the patient allows ; surgery here borders on medical futility Rodney Cohen MD FACS Visit type - Case Type Case Type: ED Admission - Emergency Emergency Visit: Yes ED Registration Date: 09/07/17 Care time: The patient presented to the Emergency Department on the above date and was hospitalized for further evaluation of their emergent condition. - New patient This patient is new to me today: Yes Date on this admission: 09/17/17 - Critical Care Critical Care patient: No
[2017-09-17 07:50] LABS: HEMATOCRIT 27.1 % (32.4-45.2); HEMOGLOBIN 9.4 GM/dL (10.7-15.3); MCH 30.4 pg (25.7-33.7); MCHC 34.5 g/dl (32.0-36.0); MEAN CELL VOLUME 88.1 fl (80-96); MEAN PLT VOLUME 7.6 fl (7.5-11.1); PLATELET COUNT 197 K/MM3 (134-434); RBC 3.08 M/mm3 (3.60-5.2); RDW 18.9 % (11.6-15.6); WHITE BLOOD COUNT 9.8 K/mm3 (4.0-10.0)
[2017-09-17 08:24] LABS: ALBUMIN 2.1 g/dl (3.4-5.0); ANION GAP 5 (8-16); BLOOD UREA NITROGEN 19 mg/dL (7-18); CHLORIDE 100 mmol/L (98-107); CO2 29 mmol/L (21-32); GLUCOSE,RANDOM 136 mg/dL (74-106); POTASSIUM 4.3 mmol/L (3.5-5.1); SGPT/ALT 44 U/L (12-78); SODIUM 134 mmol/L (136-145)
[2017-09-17 08:26] LABS: ALK PHOS 137 U/L (45-117); BILIRUBIN,TOTAL 0.5 mg/dL (0.2-1.0); CREATININE 0.4 mg/dL (0.55-1.02); SGOT/AST 19 U/L (15-37); TOT PROT 5.5 g/dl (6.4-8.2)
[2017-09-17 09:40] LABS: ANISOCYTOSIS 0; MACROCYTOSIS 0; PLATELET ESTIMATE NORMAL
[2017-09-17] MEDS: POLYETHYLENE GLYCOL 3350 119 GM BTL PO SCH (10:04)
[2017-09-17] MEDS: ENALAPRIL MALEATE 10 MG TABLET (FP) PO SCH (10:05)
[2017-09-17] MEDS: PANTOPRAZOLE 40 MG TABLET (FP) PO SCH (10:05)
[2017-09-17] MEDS: levETIRAcetam 500 MG TABLET (FP) PO SCH ×2 (10:05→22:34)
[2017-09-17] MEDS: morphine SULFATE 4 MG/ML VIAL IVPUSH PRN (10:05)
[2017-09-17] MEDS: LIDOCAINE 5% TOPICAL PATCH TP SCH (10:06)
[2017-09-17] MEDS: SODIUM CHLORIDE 1,000 ML IV SCH ×2 (10:07→12:06)
--- NOTE | 2017-09-17 12:43 | PN ---
Progress Note (short form) - Note Progress Note: Pt states that she isn't having any nausea, does have abd pain with palpation. Otherwise she isn't tender. She had a bowel movement yesterday. Vital Signs Period Temp Pulse Resp BP Sys/Gresham Pulse Ox Last 24 Hr 97.6 F-98.0 F 61-71 16-20 123-151/70-90 95 GEN: Appears comfortable Back: Dressing changed, packing removed and irrigated. No purulent drainage. No erythema to the skin.Repacked with iodoform. ABD: soft, tender to plapation to the left of ventral hernia, palpable mass in this area. No erythema to the skin. Right chest: Inc c/d/i with linda CBC, BMP 09/17/17 06:50 09/17/17 06:50 CT: transition point is SB within hernia sac, air in colon A/P:61 yo female with metastatic colon cancer, PSBO, now with bowel function D/w Dr. Cohen, f/u Abd xray ordered for today Continue NPO/IV fluids, may require ngt if vomiting/abd persists. Local wound care to back
--- NOTE | 2017-09-17 13:34 | PN ---
<Burke Vuong - Last Filed: 09/17/17 14:14> Physical Exam: SUBJECTIVE: Patient seen and examined No acute events overnight. Patient continues to have belly, shoulder, and lower extremity pain. Denies fever, chills, chest pain, shortness of breath. OBJECTIVE: Vital Signs Period Temp Pulse Resp BP Sys/[place] Pulse Ox Last 24 Hr 97.6 F-98.0 F 61-71 16-20 123-151/70-90 95 GENERAL: Awake, alert, and fully oriented. No acute distress. HEAD: +scattered bleeding, excorciated lesions on face with 1 on left forehead EYES: Pupils equal, round and reactive to light, extraocular movements intact, sclera anicteric, conjunctiva clear. EARS, NOSE, THROAT: Oropharynx clear without exudates. Moist mucous membranes. NECK: Normal range of motion, supple, L TLC LUNGS: Breath sounds equal, clear to auscultation bilaterally. No wheezes, and no crackles. No accessory muscle use. HEART: Regular rate and rhythm, normal S1 and S2 without murmur, rub or gallop. ABDOMEN: Soft, obese, Diffuse tenderness, +mildly distended, normoactive bowel sounds, no guarding, no rebound, no masses. MUSCULOSKELETAL: +TTP R shoulder with limited active and passive ROM LOWER EXTREMITIES: 2+ posterior tibial pulses, warm, well-perfused. +LLE calf tenderness NEUROLOGICAL: Cranial nerves II-XII intact. Right arm extension 4/5. Shoulder abduction 4/5. Left arm 5/5 at shoulder, elbow, and hand rn coronary care unit. Decreased ROM of right shoulder. SKIN: +scattered ulcerative nodules throughout body (face, arms, back, legs) with few purulent draining furuncles. No new lesions Laboratory Results - last 24 hr 09/16/17 09/16/17 09/17/17 14:08 21:47 02:13 WBC RBC Hgb Hct MCV MCH MCHC RDW Plt Count MPV Neutrophils % Neutrophils % (Manual) Band Neutrophils % Lymphocytes % Lymphocytes % (Manual) Monocytes % (Manual) Eosinophils % (Manual) Basophils % (Manual) Myelocytes % (Man) Promyelocytes % (Man) Blast Cells % (Manual) Nucleated RBC % Metamyelocytes Hypochromia Platelet Estimate Polychromasia Poikilocytosis Anisocytosis Microcytosis Macrocytosis Sodium Potassium Chloride Carbon Dioxide Anion Gap BUN Creatinine Creat Clearance w eGFR POC Glucometer 139 183 165 Random Glucose Calcium Total Bilirubin AST ALT Alkaline Phosphatase Total Protein Albumin 09/17/17 09/17/17 09/17/17 05:53 06:50 06:50 WBC 9.8 RBC 3.08 L Hgb 9.4 L Hct 27.1 L MCV 88.1 MCH 30.4 MCHC 34.5 RDW 18.9 H Plt Count 197 MPV 7.6 Neutrophils % No Result Required. Neutrophils % (Manual) 77.5 Band Neutrophils % 3.1 Lymphocytes % No Result Required. Lymphocytes % (Manual) 11.2 D Monocytes % (Manual) 4 Eosinophils % (Manual) 0.0 Basophils % (Manual) 0.0 Myelocytes % (Man) 3 H D Promyelocytes % (Man) 0 D Blast Cells % (Manual) 0 Nucleated RBC % 0 Metamyelocytes 0 D Hypochromia 1+ Platelet Estimate Normal Polychromasia 0 Poikilocytosis 0 Anisocytosis 0 Microcytosis 0 Macrocytosis 0 Sodium 134 L Potassium 4.3 Chloride 100 Carbon Dioxide 29 Anion Gap 5 L BUN 19 H Creatinine 0.4 L Creat Clearance w eGFR > 60 POC Glucometer 146 Random Glucose 136 H Calcium 8.0 L Total Bilirubin 0.5 AST 19 ALT 44 Alkaline Phosphatase 137 H Total Protein 5.5 L Albumin 2.1 L 09/17/17 09:41 WBC RBC Hgb Hct MCV MCH MCHC RDW Plt Count MPV Neutrophils % Neutrophils % (Manual) Band Neutrophils % Lymphocytes % Lymphocytes % (Manual) Monocytes % (Manual) Eosinophils % (Manual) Basophils % (Manual) Myelocytes % (Man) Promyelocytes % (Man) Blast Cells % (Manual) Nucleated RBC % Metamyelocytes Hypochromia Platelet Estimate Polychromasia Poikilocytosis Anisocytosis Microcytosis Macrocytosis Sodium Potassium Chloride Carbon Dioxide Anion Gap BUN Creatinine Creat Clearance w eGFR POC Glucometer 158 Random Glucose Calcium Total Bilirubin AST ALT Alkaline Phosphatase Total Protein Albumin Active Medications Generic Name Dose Route Start Last Admin Trade Name Freq PRN Reason Stop Dose Admin Dexamethasone 2 mg 09/15/17 07:20 09/17/17 06:53 Decadron - PO 2 mg TID DIAN Administration Docusate Sodium 100 mg 09/10/17 14:43 09/15/17 09:45 Colace - PO 100 mg Q8H PRN Administration CONSTIPATION Enalapril Maleate 20 mg 09/11/17 10:00 09/17/17 10:05 Vasotec - PO 20 mg DAILY DIAN Administration IV Flush 4 ml 09/10/17 14:43 09/16/17 07:22 Triple Lumen Flush IVPUSH 4 ml PRN PRN Administration Protocol Daptomycin 750 mg/ Sodium 100 mls @ 50 mls/hr 09/10/17 17:00 09/16/17 20:05 Chloride IVPB 50 mls/hr Q24H DIAN Administration Protocol Ceftaroline Fosamil 600 mg/ 100 mls @ 100 mls/hr 09/12/17 19:00 09/17/17 10: 05 Dextrose IVPB 100 mls/hr Q8H-IV DIAN Administration Protocol Sodium Chloride 1,000 mls @ 75 mls/hr 09/16/17 09:00 09/17/17 12:06 Normal Saline - IV 75 mls/hr ASDIR DIAN Administration Insulin Aspart 1 vial 09/16/17 09:00 09/17/17 09:00 Novolog Vial Sliding Scale - SQ Not Given Q6H DIAN Protocol Levetiracetam 500 mg 09/10/17 22:00 09/17/17 10:05 Keppra - PO 500 mg BID DIAN Administration Levothyroxine Sodium 150 mcg 09/11/17 07:00 09/17/17 06:53 Synthroid - PO 150 mcg DAILY@0700 DIAN Administration Lidocaine 1 patch 09/11/17 10:00 09/17/17 10:06 Lidoderm Patch - TP 1 patch DAILY DIAN Administration Miscellaneous 1 each 09/10/17 14:43 09/15/17 23:22 Duragesic Patch Waste TD 1 each PRN PRN Administration PAIN Miscellaneous 1 each 09/10/17 22:00 09/16/17 21:50 Lidoderm Patch Removal MC 1 each DAILY@2200 DIAN Administration Morphine Sulfate 1 mg 09/16/17 01:29 09/17/17 10:05 Morphine Sulfate IVPUSH 1 mg Q4H PRN Administration PAIN LEVEL 1-5 Mupirocin 1 applic 09/10/17 22:00 09/17/17 06:55 Bactroban 2% Cream - TP 1 applic TID DIAN Administration Ondansetron HCl 4 mg 09/10/17 14:38 Zofran Injection IVPUSH Q6H PRN NAUSEA AND/OR VOMITING Pantoprazole Sodium 40 mg 09/13/17 10:00 09/17/17 10:05 Protonix - PO 40 mg DAILY DIAN Administration Polyethylene Glycol 17 gm 09/10/17 17:23 09/17/17 10:04 Miralax (For Daily Use) - PO 17 grams DAILY DIAN Administration ASSESSMENT/PLAN: 61 year old F with pmh of metastatic colon cancer to lungs/brain/bone s/p chemo presented with new onset skin lesions found to have MRSA bacteremia #MRSA bacteremia and skin lesions -Repeat cx ngtd -Continue Daptomycin 750 mg q24h and Ceftaroline 600 mg q8h -ID on board -May need future DIANA #Metastatic Colon Cancer -Decadron 2mg TID -Pain control with fentanyl, oxycodone, and lidocaine patch -MRI of tibia-- bone mets #Abdominal pain, Partial vs complete sbo -Lactic acid normal -Will keep npo, IVF started. May need NG tube if pt has n/v -Surgery consulted, patient is contemplating surgical intervention. Goals of care discussion with son. He will discuss with patient about further plan. -Likely will not proceed with surgical intervention -F/u abd xray #DM, newly diagnosed -ISS q6h -D/c levemir #HTN -Continue enalapril #FEN/GI -IVF -wnl -npo #PPx -Scds -Protonix Overall prognosis is quite poor Visit type - Emergency Visit Emergency Visit: Yes ED Registration Date: 09/07/17 Care time: The patient presented to the Emergency Department on the above date and was hospitalized for further evaluation of their emergent condition. - New Patient This patient is new to me today: No - Critical Care Critical Care patient: No <Fredis Jacome - Last Filed: 09/17/17 19:31> Physical Exam: Patient seen and examined Vital Signs Temperature 97.5 F L 09/17/17 18:47 Pulse Rate 57 L 09/17/17 18:47 Respiratory Rate 18 09/17/17 18:47 Blood Pressure 125/72 09/17/17 18:47 O2 Sat by Pulse Oximetry (%) 95 09/17/17 09:00 CBCD WBC 9.8 K/mm3 (4.0-10.0) 09/17/17 06:50 RBC 3.08 M/mm3 (3.60-5.2) L 09/17/17 06:50 Hgb 9.4 GM/dL (10.7-15.3) L 09/17/17 06:50 Hct 27.1 % (32.4-45.2) L 09/17/17 06:50 MCV 88.1 fl (80-96) 09/17/17 06:50 MCHC 34.5 g/dl (32.0-36.0) 09/17/17 06:50 RDW 18.9 % (11.6-15.6) H 09/17/17 06:50 Plt Count 197 K/MM3 (134-434) 09/17/17 06:50 MPV 7.6 fl (7.5-11.1) 09/17/17 06:50 CMP Sodium 134 mmol/L (136-145) L 09/17/17 06:50 Potassium 4.3 mmol/L (3.5-5.1) 09/17/17 06:50 Chloride 100 mmol/L (98-107) 09/17/17 06:50 Carbon Dioxide 29 mmol/L (21-32) 09/17/17 06:50 Anion Gap 5 (8-16) L 09/17/17 06:50 BUN 19 mg/dL (7-18) H 09/17/17 06:50 Creatinine 0.4 mg/dL (0.55-1.02) L 09/17/17 06:50 Creat Clearance w eGFR > 60 (>60) 09/17/17 06:50 Random Glucose 136 mg/dL (74-106) H 09/17/17 06:50 Calcium 8.0 mg/dL (8.5-10.1) L 09/17/17 06:50 Total Bilirubin 0.5 mg/dL (0.2-1.0) 09/17/17 06:50 AST 19 U/L (15-37) 09/17/17 06:50 ALT 44 U/L (12-78) 09/17/17 06:50 Alkaline Phosphatase 137 U/L (45-117) H 09/17/17 06:50 Total Protein 5.5 g/dl (6.4-8.2) L 09/17/17 06:50 Albumin 2.1 g/dl (3.4-5.0) L 09/17/17 06:50 CARDIAC ENZYMES Creatine Kinase 24 IU/L (26-192) L 09/10/17 06:00 Current Medications Generic Name Dose Route Start Last Admin Trade Name Freq PRN Reason Stop Dose Admin Dexamethasone 2 mg 09/15/17 07:20 09/17/17 16:53 Decadron - PO 2 mg TID DIAN Administration Docusate Sodium 100 mg 09/10/17 14:43 09/15/17 09:45 Colace - PO 100 mg Q8H PRN Administration CONSTIPATION Enalapril Maleate 20 mg 09/11/17 10:00 09/17/17 10:05 Vasotec - PO 20 mg DAILY DIAN Administration IV Flush 4 ml 09/10/17 14:43 09/16/17 07:22 Triple Lumen Flush IVPUSH 4 ml PRN PRN Administration Protocol Daptomycin 750 mg/ Sodium 100 mls @ 50 mls/hr 09/10/17 17:00 09/17/17 18:05 Chloride IVPB 50 mls/hr Q24H DIAN Administration Protocol Ceftaroline Fosamil 600 mg/ 100 mls @ 100 mls/hr 09/12/17 19:00 09/17/17 18: 05 Dextrose IVPB 100 mls/hr Q8H-IV DIAN Administration Protocol Sodium Chloride 1,000 mls @ 75 mls/hr 09/16/17 09:00 09/17/17 12:06 Normal Saline - IV 75 mls/hr ASDIR DIAN Administration Insulin Aspart 1 vial 09/16/17 09:00 09/17/17 16:53 Novolog Vial Sliding Scale - SQ Not Given Q6H DIAN Protocol Levetiracetam 500 mg 09/10/17 22:00 09/17/17 10:05 Keppra - PO 500 mg BID DIAN Administration Levothyroxine Sodium 150 mcg 09/11/17 07:00 09/17/17 06:53 Synthroid - PO 150 mcg DAILY@0700 DIAN Administration Lidocaine 1 patch 09/11/17 10:00 09/17/17 10:06 Lidoderm Patch - TP 1 patch DAILY DIAN Administration Miscellaneous 1 each 09/10/17 14:43 09/15/17 23:22 Duragesic Patch Waste TD 1 each PRN PRN Administration PAIN Miscellaneous 1 each 09/10/17 22:00 09/16/17 21:50 Lidoderm Patch Removal MC 1 each DAILY@2200 DIAN Administration Morphine Sulfate 1 mg 09/16/17 01:29 09/17/17 10:05 Morphine Sulfate IVPUSH 1 mg Q4H PRN Administration PAIN LEVEL 1-5 Mupirocin 1 applic 09/10/17 22:00 09/17/17 16:55 Bactroban 2% Cream - TP 1 applic TID DIAN Administration Ondansetron HCl 4 mg 09/10/17 14:38 Zofran Injection IVPUSH Q6H PRN NAUSEA AND/OR VOMITING Pantoprazole Sodium 40 mg 09/13/17 10:00 09/17/17 10:05 Protonix - PO 40 mg DAILY DIAN Administration Polyethylene Glycol 17 gm 09/10/17 17:23 09/17/17 10:04 Miralax (For Daily Use) - PO 17 grams DAILY DIAN Administration Home Medications Medication Instructions Recorded Enalapril Maleate [Vasotec] 20 mg PO DAILY 12/24/16 Levothyroxine [Synthroid -] 150 mcg PO DAILY 12/24/16 Simvastatin [Zocor -] 10 mg PO HS 07/22/17 Dexamethasone [Decadron -] 4 mg PO Q6H #120 tablet 07/24/17 levETIRAcetam [Keppra -] 500 mg PO BID #60 tablet 07/24/17 A/P: Patient is a 61 year old F with pmhx of metastatic colon cancer to lungs/brain/ bone s/p chemo presented with new onset skin lesions found to have MRSA bacteremia. #MRSA bacteremia and skin lesions continue IV Daptomycin 750 mg q24h and Ceftaroline 600 mg q8h. ID on the case.
--- NOTE | 2017-09-17 14:33 | PN ---
Progress Note (short form) - Note Progress Note: alert port removed 09/10 abdominal pain less today NPO +BM ct scan ab/pelvis with mets and SBO Vital Signs Period Temp Pulse Resp BP Sys/[place] Pulse Ox Last 24 Hr 97.2 F-98.0 F 57-71 16-20 123-151/70-90 95 cor-rrr lungs clear abd soft,+tenderness to palpation ext no edema lesions on face and arms are drying CBC, BMP 09/17/17 06:50 09/17/17 06:50 Microbiology 09/13/17 08:00 Blood - Peripheral Venous Blood Culture - Final S Aureus 09/08/17 11:00 Wound Viral Culture - Final 09/15/17 08:08 Blood - Peripheral Venous Blood Culture - Preliminary NO GROWTH OBTAINED AFTER 48 HOURS, INCUBATION TO CONTINUE FOR 3 DAYS. 09/15/17 06:40 Blood - Peripheral Venous Blood Culture - Preliminary NO GROWTH OBTAINED AFTER 48 HOURS, INCUBATION TO CONTINUE FOR 3 DAYS. 09/13/17 06:00 Blood - Peripheral Venous Blood Culture - Final S Aureus a/p mrsa bacteremia-port removed port infecion skin lesions- staph continue daptomycin/ceftaroline-#8 weekly cpk- will order for am she will require penitentiary iv antibiotics cultures form 09/15 negative at 48h hours SBO secondary to incisional hernia- positive bone scan left femur- MRI noted metastatic colon cancer -on decadron for brain lesion-being tapered thrombocytopenia- suspect secondary to infection-improved overall prognosis is poor d/w cardiology- she is not a candidate for surgical valve replacement she is on maximal medical therapy d/w son at bedside-he is aware that she is doing poorly and not a surgical candidate advanced directives continue to be discussed with family and patient Problem List - Problems (1) Bacteremia Code(s): R78.81 - BACTEREMIA (2) Skin lesions, generalized Code(s): L98.9 - DISORDER OF THE SKIN AND SUBCUTANEOUS TISSUE, UNSPECIFIED (3) Colon cancer metastasized to multiple sites Code(s): C18.9 - MALIGNANT NEOPLASM OF COLON, UNSPECIFIED
--- NOTE | 2017-09-17 14:47 | PN ---
<Reginald Marquez - Last Filed: 09/17/17 14:43> Physical Exam: SERVICE: Hematology and Oncology SUBJECTIVE: Pt has had bowel movement but small amount. She also continues to pass gas belch. Still NPO. No other acute event overnight. OBJECTIVE: Last Vital Signs Temp Pulse Resp BP Pulse Ox 97.2 F L 57 L 20 138/82 95 09/17/17 13:50 09/17/17 13:50 09/17/17 13:50 09/17/17 13:50 09/16/17 20:18 GENERAL: AAO x 3, weak but able to answer questions, no in cardiopulmonary distress HEAD: AT, NC EYES: PERRLA, sclera anicteric, conjunctiva pale ENT: oropharynx clear without exudates, pale and moist mucous membranes. CHEST: L TLC in place, R upper chest surgical clips in place NECK: No bruits or lymphedopathy LUNGS: CTAB HEART: RRR, S1, S2 without murmur, rub or gallop. ABDOMEN: Soft, diffuse tenderness upon light palpations, nondistended, hypoactive bowel sounds, no guarding, no rebound EXTREMITIES: no edema, tenderness upon pressing on b/l lower extremities, worse on the L SKIN: multiple scabbed lesions on face, arms and legs. CBCD WBC 9.8 K/mm3 (4.0-10.0) 09/17/17 06:50 RBC 3.08 M/mm3 (3.60-5.2) L 09/17/17 06:50 Hgb 9.4 GM/dL (10.7-15.3) L 09/17/17 06:50 Hct 27.1 % (32.4-45.2) L 09/17/17 06:50 MCV 88.1 fl (80-96) 09/17/17 06:50 MCHC 34.5 g/dl (32.0-36.0) 09/17/17 06:50 RDW 18.9 % (11.6-15.6) H 09/17/17 06:50 Plt Count 197 K/MM3 (134-434) 09/17/17 06:50 MPV 7.6 fl (7.5-11.1) 09/17/17 06:50 CMP Sodium 134 mmol/L (136-145) L 09/17/17 06:50 Potassium 4.3 mmol/L (3.5-5.1) 09/17/17 06:50 Chloride 100 mmol/L (98-107) 09/17/17 06:50 Carbon Dioxide 29 mmol/L (21-32) 09/17/17 06:50 Anion Gap 5 (8-16) L 09/17/17 06:50 BUN 19 mg/dL (7-18) H 09/17/17 06:50 Creatinine 0.4 mg/dL (0.55-1.02) L 09/17/17 06:50 Creat Clearance w eGFR > 60 (>60) 09/17/17 06:50 Calcium 8.0 mg/dL (8.5-10.1) L 09/17/17 06:50 Total Bilirubin 0.5 mg/dL (0.2-1.0) 09/17/17 06:50 AST 19 U/L (15-37) 09/17/17 06:50 ALT 44 U/L (12-78) 09/17/17 06:50 Alkaline Phosphatase 137 U/L (45-117) H 09/17/17 06:50 Total Protein 5.5 g/dl (6.4-8.2) L 09/17/17 06:50 Albumin 2.1 g/dl (3.4-5.0) L 09/17/17 06:50 ASSESSMENT 61 yo F w/ HTN, 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 #SBO #MRSA bacteremia # Metastatic colonic CA, to brain and bone Appreciate surgery input, no invasive procedure for now due to pt's medical condition. Cont. pain control and supportive care Visit type - Emergency Visit Emergency Visit: No - New Patient This patient is new to me today: No - Critical Care Critical Care patient: No - Discharge Referral Referred to [facility] No <Maria D Amaya - Last Filed: 09/17/17 21:18> Physical Exam: SUBJECTIVE: Patient seen and examined OBJECTIVE: Vital Signs Period Temp Pulse Resp BP Sys/[place] Pulse Ox Last 24 Hr 97.2 F-97.8 F 57-62 16-20 125-151/70-90 95 GENERAL: The patient is awake, alert, and fully oriented, in no acute distress. HEAD: Normal with no signs of trauma. EYES: PERRL, extraocular movements intact, sclera anicteric, conjunctiva clear. No ptosis. ENT: Ears normal, nares patent, oropharynx clear without exudates, moist mucous membranes. NECK: Trachea midline, full range of motion, supple. LUNGS: Breath sounds equal, clear to auscultation bilaterally, no wheezes, no crackles, no accessory muscle use. HEART: Regular rate and rhythm, S1, S2 without murmur, rub or gallop. ABDOMEN: Soft, nontender, nondistended, normoactive bowel sounds, no guarding, no rebound, no hepatosplenomegaly, no masses. EXTREMITIES: 2+ pulses, warm, well-perfused, no edema. NEUROLOGICAL: Cranial nerves II through XII grossly intact. Normal speech, gait not observed. PSYCH: Normal mood, normal affect. SKIN: Warm, dry, normal turgor, no rashes or lesions noted Laboratory Results - last 24 hr 09/16/17 09/17/17 09/17/17 21:47 02:13 05:53 WBC RBC Hgb Hct MCV MCH MCHC RDW Plt Count MPV Neutrophils % Neutrophils % (Manual) Band Neutrophils % Lymphocytes % Lymphocytes % (Manual) Monocytes % (Manual) Eosinophils % (Manual) Basophils % (Manual) Myelocytes % (Man) Promyelocytes % (Man) Blast Cells % (Manual) Nucleated RBC % Metamyelocytes Hypochromia Platelet Estimate Polychromasia Poikilocytosis Anisocytosis Microcytosis Macrocytosis Sodium Potassium Chloride Carbon Dioxide Anion Gap BUN Creatinine Creat Clearance w eGFR POC Glucometer 183 165 146 Random Glucose Calcium Total Bilirubin AST ALT Alkaline Phosphatase Total Protein Albumin 09/17/17 09/17/17 09/17/17 06:50 06:50 09:41 WBC 9.8 RBC 3.08 L Hgb 9.4 L Hct 27.1 L MCV 88.1 MCH 30.4 MCHC 34.5 RDW 18.9 H Plt Count 197 MPV 7.6 Neutrophils % No Result Required. Neutrophils % (Manual) 77.5 Band Neutrophils % 3.1 Lymphocytes % No Result Required. Lymphocytes % (Manual) 11.2 D Monocytes % (Manual) 4 Eosinophils % (Manual) 0.0 Basophils % (Manual) 0.0 Myelocytes % (Man) 3 H D Promyelocytes % (Man) 0 D Blast Cells % (Manual) 0 Nucleated RBC % 0 Metamyelocytes 0 D Hypochromia 1+ Platelet Estimate Normal Polychromasia 0 Poikilocytosis 0 Anisocytosis 0 Microcytosis 0 Macrocytosis 0 Sodium 134 L Potassium 4.3 Chloride 100 Carbon Dioxide 29 Anion Gap 5 L BUN 19 H Creatinine 0.4 L Creat Clearance w eGFR > 60 POC Glucometer 158 Random Glucose 136 H Calcium 8.0 L Total Bilirubin 0.5 AST 19 ALT 44 Alkaline Phosphatase 137 H Total Protein 5.5 L Albumin 2.1 L 09/17/17 16:51 WBC RBC Hgb Hct MCV MCH MCHC RDW Plt Count MPV Neutrophils % Neutrophils % (Manual) Band Neutrophils % Lymphocytes % Lymphocytes % (Manual) Monocytes % (Manual) Eosinophils % (Manual) Basophils % (Manual) Myelocytes % (Man) Promyelocytes % (Man) Blast Cells % (Manual) Nucleated RBC % Metamyelocytes Hypochromia Platelet Estimate Polychromasia Poikilocytosis Anisocytosis Microcytosis Macrocytosis Sodium Potassium Chloride Carbon Dioxide Anion Gap BUN Creatinine Creat Clearance w eGFR POC Glucometer 175 Random Glucose Calcium Total Bilirubin AST ALT Alkaline Phosphatase Total Protein Albumin Active Medications Generic Name Dose Route Start Last Admin Trade Name Freq PRN Reason Stop Dose Admin Dexamethasone 2 mg 09/15/17 07:20 09/17/17 16:53 Decadron - PO 2 mg TID DIAN Administration Docusate Sodium 100 mg 09/10/17 14:43 09/15/17 09:45 Colace - PO 100 mg Q8H PRN Administration CONSTIPATION Enalapril Maleate 20 mg 09/11/17 10:00 09/17/17 10:05 Vasotec - PO 20 mg DAILY DIAN Administration IV Flush 4 ml 09/10/17 14:43 09/16/17 07:22 Triple Lumen Flush IVPUSH 4 ml PRN PRN Administration Protocol Daptomycin 750 mg/ Sodium 100 mls @ 50 mls/hr 09/10/17 17:00 09/17/17 18:05 Chloride IVPB 50 mls/hr Q24H DIAN Administration Protocol Ceftaroline Fosamil 600 mg/ 100 mls @ 100 mls/hr 09/12/17 19:00 09/17/17 18: 05 Dextrose IVPB 100 mls/hr Q8H-IV DIAN Administration Protocol Sodium Chloride 1,000 mls @ 75 mls/hr 09/16/17 09:00 09/17/17 12:06 Normal Saline - IV 75 mls/hr ASDIR DIAN Administration Insulin Aspart 1 vial 09/16/17 09:00 09/17/17 16:53 Novolog Vial Sliding Scale - SQ Not Given Q6H DIAN Protocol Levetiracetam 500 mg 09/10/17 22:00 09/17/17 10:05 Keppra - PO 500 mg BID DIAN Administration Levothyroxine Sodium 150 mcg 09/11/17 07:00 09/17/17 06:53 Synthroid - PO 150 mcg DAILY@0700 DIAN Administration Lidocaine 1 patch 09/11/17 10:00 09/17/17 10:06 Lidoderm Patch - TP 1 patch DAILY DIAN Administration Miscellaneous 1 each 09/10/17 14:43 09/15/17 23:22 Duragesic Patch Waste TD 1 each PRN PRN Administration PAIN Miscellaneous 1 each 09/10/17 22:00 09/16/17 21:50 Lidoderm Patch Removal MC 1 each DAILY@2200 DIAN Administration Morphine Sulfate 1 mg 09/16/17 01:29 09/17/17 10:05 Morphine Sulfate IVPUSH 1 mg Q4H PRN Administration PAIN LEVEL 1-5 Mupirocin 1 applic 09/10/17 22:00 09/17/17 16:55 Bactroban 2% Cream - TP 1 applic TID DIAN Administration Ondansetron HCl 4 mg 09/10/17 14:38 Zofran Injection IVPUSH Q6H PRN NAUSEA AND/OR VOMITING Pantoprazole Sodium 40 mg 09/13/17 10:00 09/17/17 10:05 Protonix - PO 40 mg DAILY DIAN Administration Polyethylene Glycol 17 gm 09/10/17 17:23 09/17/17 10:04 Miralax (For Daily Use) - PO 17 grams DAILY DIAN Administration ASSESSMENT/PLAN: will be continued the same care discussed yesterday with pt and family.
[2017-09-17] MEDS: DAPTOMYCIN 750 MG in SODIUM CHLORIDE 100 ML IVPB SCH (18:05)
[2017-09-17] MEDS: LIDOCAINE PATCH REMOVAL MC SCH (22:35)
[2017-09-18] MEDS ORDERED: PT OWN MED DRAWER 7, Y5N ONE (02:08)
[2017-09-18] MEDS: CEFTAROLINE FOSAMIL ACETATE 600 MG in DEXTROSE 5%-WATER - 100 ML IVPB SCH ×3 (02:18→17:38)
[2017-09-18] MEDS: INSULIN SLIDING SCALE (NOVOLOG) 1 VIAL SQ SCH ×4 (02:20→22:12)
[2017-09-18] MEDS: DEXAMETHASONE 4 MG TABLET (FP) PO SCH ×3 (06:22→22:11)
[2017-09-18] MEDS: LEVOTHYROXINE NA 150 MCG TABLET PO SCH (06:23)
[2017-09-18] MEDS: MUPIROCIN CA 2% TOPICAL CREAM 15 GM TUBE TP SCH ×3 (06:23→22:12)
[2017-09-18 07:56] LABS: HEMATOCRIT 26.4 % (32.4-45.2); HEMOGLOBIN 9.1 GM/dL (10.7-15.3); MCH 30.3 pg (25.7-33.7); MCHC 34.3 g/dl (32.0-36.0); MEAN CELL VOLUME 88.5 fl (80-96); MEAN PLT VOLUME 7.5 fl (7.5-11.1); PLATELET COUNT 189 K/MM3 (134-434); RBC 2.99 M/mm3 (3.60-5.2); RDW 18.6 % (11.6-15.6); WHITE BLOOD COUNT 8.6 K/mm3 (4.0-10.0)
[2017-09-18 08:00] LABS: ANION GAP 7 (8-16); BLOOD UREA NITROGEN 19 mg/dL (7-18); CALCIUM 8.3 mg/dL (8.5-10.1); CHLORIDE 103 mmol/L (98-107); CO2 28 mmol/L (21-32); GLUCOSE,RANDOM 129 mg/dL (74-106); POTASSIUM 4.2 mmol/L (3.5-5.1); SODIUM 138 mmol/L (136-145)
[2017-09-18 08:01] LABS: CREATININE 0.5 mg/dL (0.55-1.02)
--- NOTE | 2017-09-18 09:28 | PN ---
Progress Note (short form) - Note Progress Note: Attending Surgeon No c/o; she passed flatus and had a small bowel movement abdo-soft and non tender AXR-no obstruction IMP: improved PLAN: D/c NPO and start on a diet; pen surgical f/u. Rodney Cohen Md FACS
[2017-09-18] MEDS: SODIUM CHLORIDE 1,000 ML IV SCH (10:44)
[2017-09-18] MEDS: LIDOCAINE 5% TOPICAL PATCH TP SCH (10:45)
[2017-09-18] MEDS: POLYETHYLENE GLYCOL 3350 119 GM BTL PO SCH (10:45)
[2017-09-18] MEDS: PANTOPRAZOLE 40 MG TABLET (FP) PO SCH (10:46)
[2017-09-18] MEDS: ENALAPRIL MALEATE 10 MG TABLET (FP) PO SCH (10:46)
[2017-09-18] MEDS: levETIRAcetam 500 MG TABLET (FP) PO SCH ×2 (10:46→22:12)
--- NOTE | 2017-09-18 11:06 | PN ---
<Burke Vuong - Last Filed: 09/18/17 16:19> Physical Exam: SUBJECTIVE: Patient seen and examined No acute events overnight. Patient continues to have belly, shoulder, and lower extremity pain. Patient had 1 BM last night. Denies fever, chills, chest pain, shortness of breath. OBJECTIVE: Vital Signs Period Temp Pulse Resp BP Sys/[place] Pulse Ox Last 24 Hr 97.1 F-97.6 F 57-60 18-20 115-149/66-82 98 GENERAL: Awake, alert, and fully oriented. No acute distress. HEAD: +scattered bleeding, excorciated lesions on face with 1 on left forehead EYES: Pupils equal, round and reactive to light, extraocular movements intact, sclera anicteric, conjunctiva clear. EARS, NOSE, THROAT: Oropharynx clear without exudates. Moist mucous membranes. NECK: Normal range of motion, supple, L TLC LUNGS: Breath sounds equal, clear to auscultation bilaterally. No wheezes, and no crackles. No accessory muscle use. HEART: Regular rate and rhythm, normal S1 and S2 without murmur, rub or gallop. ABDOMEN: Soft, obese, Diffuse tenderness, +mildly distended, normoactive bowel sounds, no guarding, no rebound, no masses. MUSCULOSKELETAL: +TTP R shoulder with limited active and passive ROM LOWER EXTREMITIES: 2+ posterior tibial pulses, warm, well-perfused. +LLE calf tenderness NEUROLOGICAL: Cranial nerves II-XII intact. Right arm extension 4/5. Shoulder abduction 4/5. Left arm 5/5 at shoulder, elbow, and hand hide inspector and sorter. Decreased ROM of right shoulder. SKIN: +scattered ulcerative nodules throughout body (face, arms, back, legs) with few purulent draining furuncles. No new lesions Laboratory Results - last 24 hr 09/17/17 09/17/17 09/18/17 16:51 22:31 02:19 WBC RBC Hgb Hct MCV MCH MCHC RDW Plt Count MPV Neutrophils % Lymphocytes % Sodium Potassium Chloride Carbon Dioxide Anion Gap BUN Creatinine POC Glucometer 175 151 139 Random Glucose Calcium Creatine Kinase 09/18/17 09/18/17 09/18/17 06:00 06:00 06:00 WBC 8.6 RBC 2.99 L Hgb 9.1 L Hct 26.4 L MCV 88.5 MCH 30.3 MCHC 34.3 RDW 18.6 H Plt Count 189 MPV 7.5 Neutrophils % No Result Required. Lymphocytes % No Result Required. Sodium 138 Potassium 4.2 Chloride 103 Carbon Dioxide 28 Anion Gap 7 L BUN 19 H Creatinine 0.5 L POC Glucometer Random Glucose 129 H Calcium 8.3 L Creatine Kinase 27 09/18/17 10:43 WBC RBC Hgb Hct MCV MCH MCHC RDW Plt Count MPV Neutrophils % Lymphocytes % Sodium Potassium Chloride Carbon Dioxide Anion Gap BUN Creatinine POC Glucometer 185 Random Glucose Calcium Creatine Kinase Active Medications Generic Name Dose Route Start Last Admin Trade Name Freq PRN Reason Stop Dose Admin Dexamethasone 2 mg 09/15/17 07:20 09/18/17 06:22 Decadron - PO 2 mg TID DIAN Administration Docusate Sodium 100 mg 09/10/17 14:43 09/15/17 09:45 Colace - PO 100 mg Q8H PRN Administration CONSTIPATION Enalapril Maleate 20 mg 09/11/17 10:00 09/18/17 10:46 Vasotec - PO 20 mg DAILY DIAN Administration IV Flush 4 ml 09/10/17 14:43 09/16/17 07:22 Triple Lumen Flush IVPUSH 4 ml PRN PRN Administration Protocol Daptomycin 750 mg/ Sodium 100 mls @ 50 mls/hr 09/10/17 17:00 09/17/17 18:05 Chloride IVPB 50 mls/hr Q24H DIAN Administration Protocol Ceftaroline Fosamil 600 mg/ 100 mls @ 100 mls/hr 09/12/17 19:00 09/18/17 10: 45 Dextrose IVPB 100 mls/hr Q8H-IV DIAN Administration Protocol Sodium Chloride 1,000 mls @ 75 mls/hr 09/16/17 09:00 09/18/17 10:44 Normal Saline - IV Not Given ASDIR DIAN Insulin Aspart 1 vial 09/16/17 09:00 09/18/17 09:30 Novolog Vial Sliding Scale - SQ Not Given Q6H DIAN Protocol Levetiracetam 500 mg 09/10/17 22:00 09/18/17 10:46 Keppra - PO 500 mg BID DIAN Administration Levothyroxine Sodium 150 mcg 09/11/17 07:00 09/18/17 06:23 Synthroid - PO 150 mcg DAILY@0700 DIAN Administration Lidocaine 1 patch 09/11/17 10:00 09/18/17 10:45 Lidoderm Patch - TP 1 patch DAILY DIAN Administration Miscellaneous 1 each 09/10/17 14:43 09/15/17 23:22 Duragesic Patch Waste TD 1 each PRN PRN Administration PAIN Miscellaneous 1 each 09/10/17 22:00 09/17/17 22:35 Lidoderm Patch Removal MC 1 each DAILY@2200 DIAN Administration Morphine Sulfate 1 mg 09/16/17 01:29 09/17/17 10:05 Morphine Sulfate IVPUSH 1 mg Q4H PRN Administration PAIN LEVEL 1-5 Mupirocin 1 applic 09/10/17 22:00 09/18/17 06:23 Bactroban 2% Cream - TP 1 applic TID DIAN Administration Ondansetron HCl 4 mg 09/10/17 14:38 Zofran Injection IVPUSH Q6H PRN NAUSEA AND/OR VOMITING Pantoprazole Sodium 40 mg 09/13/17 10:00 09/18/17 10:46 Protonix - PO 40 mg DAILY DIAN Administration Polyethylene Glycol 17 gm 09/10/17 17:23 09/18/17 10:45 Miralax (For Daily Use) - PO 17 grams DAILY DIAN Administration ASSESSMENT/PLAN: 61 year old F with pmh of 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 May need NG tube if pt has n/v -Surgery consulted, patient is contemplating surgical intervention. Goals of care discussion with son. He will discuss with patient about further plan. -Likely will not proceed with surgical intervention -F/u abd xray #DM, newly diagnosed -ISS q6h -D/c levemir #HTN -Continue enalapril #FEN/GI -IVF -wnl -Full liquid diet #PPx -Scds -Protonix Overall prognosis is quite poor Visit type - Emergency Visit Emergency Visit: Yes ED Registration Date: 09/07/17 Care time: The patient presented to the Emergency Department on the above date and was hospitalized for further evaluation of their emergent condition. - New Patient This patient is new to me today: No - Critical Care Critical Care patient: No <Maria D Amaya - Last Filed: 09/18/17 17:12> <Fredis Jacome - Last Filed: 09/18/17 18:56> Physical Exam: Discussed with ID , will repeat the blood culture and antibiotic adjustments accordingly.
[2017-09-18 11:15] LABS: PLATELET ESTIMATE NORMAL
--- NOTE | 2017-09-18 12:09 | PN ---
<Reginald Marquez - Last Filed: 09/18/17 12:07> Physical Exam: SERVICE: Hematology and Oncology SUBJECTIVE: Still c/o LE and R shoulder pain. Eating and passing gas and had small bowel movement this morning. No other acute event overnight. OBJECTIVE: Last Vital Signs Temp Pulse Resp BP Pulse Ox 97.1 F L 60 18 138/76 98 09/18/17 09:31 09/18/17 09:31 09/18/17 09:31 09/18/17 09:31 09/17/17 21:00 GENERAL: AAO x 3, no in cardiopulmonary distress HEAD: AT, NC EYES: PERRLA, sclera anicteric, conjunctiva pale ENT: oropharynx clear without exudates, pale and moist mucous membranes. CHEST: L TLC in place, R upper chest surgical clips in place NECK: No bruits or lymphedopathy LUNGS: CTAB HEART: RRR, S1, S2 without murmur, rub or gallop. ABDOMEN: Soft, diffuse tenderness upon light palpations, nondistended, hypoactive bowel sounds, no guarding, no rebound EXTREMITIES: no edema, tenderness upon pressing on b/l lower extremities, worse on the L SKIN: multiple scabbed lesions on face, arms and legs. CBCD WBC 8.6 K/mm3 (4.0-10.0) 09/18/17 06:00 RBC 2.99 M/mm3 (3.60-5.2) L 09/18/17 06:00 Hgb 9.1 GM/dL (10.7-15.3) L 09/18/17 06:00 Hct 26.4 % (32.4-45.2) L 09/18/17 06:00 MCV 88.5 fl (80-96) 09/18/17 06:00 MCHC 34.3 g/dl (32.0-36.0) 09/18/17 06:00 RDW 18.6 % (11.6-15.6) H 09/18/17 06:00 Plt Count 189 K/MM3 (134-434) 09/18/17 06:00 MPV 7.5 fl (7.5-11.1) 09/18/17 06:00 CMP Sodium 138 mmol/L (136-145) 09/18/17 06:00 Potassium 4.2 mmol/L (3.5-5.1) 09/18/17 06:00 Chloride 103 mmol/L (98-107) 09/18/17 06:00 Carbon Dioxide 28 mmol/L (21-32) 09/18/17 06:00 Anion Gap 7 (8-16) L 09/18/17 06:00 BUN 19 mg/dL (7-18) H 09/18/17 06:00 Creatinine 0.5 mg/dL (0.55-1.02) L 09/18/17 06:00 Creat Clearance w eGFR > 60 (>60) 09/17/17 06:50 Calcium 8.3 mg/dL (8.5-10.1) L 09/18/17 06:00 Total Bilirubin 0.5 mg/dL (0.2-1.0) 09/17/17 06:50 AST 19 U/L (15-37) 09/17/17 06:50 ALT 44 U/L (12-78) 09/17/17 06:50 Alkaline Phosphatase 137 U/L (45-117) H 09/17/17 06:50 Total Protein 5.5 g/dl (6.4-8.2) L 09/17/17 06:50 Albumin 2.1 g/dl (3.4-5.0) L 09/17/17 06:50 ASSESSMENT 61 yo F w/ HTN, 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 #SBO #MRSA bacteremia # Metastatic colonic CA, to brain and bone SBO resolved Appreciate surgery input, no invasive procedure for now due to pt's medical condition. Cont. pain control and supportive care Visit type - Emergency Visit Emergency Visit: No - New Patient This patient is new to me today: No - Critical Care Critical Care patient: No - Discharge Referral Referred to [facility] No <Maria D Amaya - Last Filed: 09/18/17 17:11> Physical Exam: For abx/supportive care.
[2017-09-18] MEDS ORDERED: INSULIN (NOVOLOG) ASPART 100 UNITS/ML 10ML VIAL ONE (17:05)
--- NOTE | 2017-09-18 17:52 | PN ---
Progress Note (short form) - Note Progress Note: alert port removed 09/10 abdominal pain less today tolerating liquids +BM ct scan ab/pelvis with mets and SBO Vital Signs Period Temp Pulse Resp BP Sys/[place] Pulse Ox Last 24 Hr 97.1 F-97.6 F 57-60 18-20 106-149/54-76 97-98 cor-rrr lungs- decreased bs at bases abd firm tender left side of abdomen ext no edema skin lesions drying CBC, BMP 09/18/17 06:00 09/18/17 06:00 Microbiology 09/15/17 08:08 Blood Culture - Preliminary Blood - Peripheral Venous NO GROWTH OBTAINED AFTER 72 HOURS, INCUBATION TO CONTINUE FOR 2 DAYS. 09/15/17 06:40 Blood Culture - Preliminary Blood - Peripheral Venous NO GROWTH OBTAINED AFTER 72 HOURS, INCUBATION TO CONTINUE FOR 2 DAYS. a/p mrsa bacteremia-port removed port infecion skin lesions- staph continue daptomycin/ceftaroline-#9 she will require shelter iv antibiotics cultures form 09/15 negative at 48h hours repeat blood cultures today SBO secondary to incisional hernia- positive bone scan left femur- MRI noted metastatic colon cancer -on decadron for brain lesion-being tapered thrombocytopenia- suspect secondary to infection-improved overall prognosis is poor not a surgical candidate son is aware advanced directives continue to be discussed with family and patient Problem List - Problems (1) Bacteremia Code(s): R78.81 - BACTEREMIA (2) Skin lesions, generalized Code(s): L98.9 - DISORDER OF THE SKIN AND SUBCUTANEOUS TISSUE, UNSPECIFIED (3) Colon cancer metastasized to multiple sites Code(s): C18.9 - MALIGNANT NEOPLASM OF COLON, UNSPECIFIED
[2017-09-18] MEDS: DAPTOMYCIN 750 MG in SODIUM CHLORIDE 100 ML IVPB SCH (18:00)
[2017-09-18] MEDS: LIDOCAINE PATCH REMOVAL MC SCH (22:00)
[2017-09-19] MEDS ORDERED: PT OWN MED DRAWER 7, Y5N ONE (02:30)
[2017-09-19] MEDS: CEFTAROLINE FOSAMIL ACETATE 600 MG in DEXTROSE 5%-WATER - 100 ML IVPB SCH ×3 (02:39→17:25)
[2017-09-19] MEDS: INSULIN SLIDING SCALE (NOVOLOG) 1 VIAL SQ SCH ×4 (02:43→23:46)
[2017-09-19] MEDS: MUPIROCIN CA 2% TOPICAL CREAM 15 GM TUBE TP SCH ×3 (06:55→23:41)
[2017-09-19] MEDS: LEVOTHYROXINE NA 150 MCG TABLET PO SCH (06:56)
[2017-09-19] MEDS: DEXAMETHASONE 4 MG TABLET (FP) PO SCH ×3 (06:56→23:41)
[2017-09-19 08:13] LABS: HEMATOCRIT 26.4 % (32.4-45.2); HEMOGLOBIN 8.9 GM/dL (10.7-15.3); MCH 30.2 pg (25.7-33.7); MCHC 33.8 g/dl (32.0-36.0); MEAN CELL VOLUME 89.4 fl (80-96); MEAN PLT VOLUME 7.5 fl (7.5-11.1); PLATELET COUNT 179 K/MM3 (134-434); RBC 2.95 M/mm3 (3.60-5.2); RDW 18.6 % (11.6-15.6); WHITE BLOOD COUNT 8.4 K/mm3 (4.0-10.0)
[2017-09-19 08:36] LABS: ANION GAP 11 (8-16); BLOOD UREA NITROGEN 17 mg/dL (7-18); CHLORIDE 104 mmol/L (98-107); CO2 24 mmol/L (21-32); GLUCOSE,RANDOM 108 mg/dL (74-106); POTASSIUM 4.2 mmol/L (3.5-5.1); SODIUM 139 mmol/L (136-145)
[2017-09-19 08:38] LABS: CREATININE 0.5 mg/dL (0.55-1.02)
--- NOTE | 2017-09-19 10:53 | PN ---
<Burke Vuong - Last Filed: 09/19/17 13:55> Physical Exam: SUBJECTIVE: Patient seen and examined No acute events overnight. Patient tolerating diet. States she had 1 BM last night. Abdominal pain improving. Denies F/C, N/V OBJECTIVE: Vital Signs Period Temp Pulse Resp BP Sys/[place] Pulse Ox Last 24 Hr 97.3 F-98.2 F 57-64 16-18 101-134/54-75 97 GENERAL: Awake, alert, and fully oriented. No acute distress. HEAD: +scattered bleeding, excorciated lesions on face with 1 on left forehead EYES: Pupils equal, round and reactive to light, extraocular movements intact, sclera anicteric, conjunctiva clear. EARS, NOSE, THROAT: Oropharynx clear without exudates. Moist mucous membranes. NECK: Normal range of motion, supple, L TLC LUNGS: Breath sounds equal, clear to auscultation bilaterally. No wheezes, and no crackles. No accessory muscle use. HEART: Regular rate and rhythm, normal S1 and S2 without murmur, rub or gallop. ABDOMEN: Soft, obese, Diffuse tenderness, +mildly distended, normoactive bowel sounds, no guarding, no rebound, no masses. MUSCULOSKELETAL: +TTP R shoulder with limited active and passive ROM LOWER EXTREMITIES: 2+ posterior tibial pulses, warm, well-perfused. +LLE calf tenderness NEUROLOGICAL: Cranial nerves II-XII intact. Right arm extension 4/5. Shoulder abduction 4/5. Left arm 5/5 at shoulder, elbow, and hand client success director. Decreased ROM of right shoulder. SKIN: +scattered ulcerative nodules throughout body (face, arms, back, legs) with few purulent draining furuncles. No new lesions Laboratory Results - last 24 hr 09/18/17 09/18/17 09/18/17 06:00 10:43 15:06 WBC RBC Hgb Hct MCV MCH MCHC RDW Plt Count MPV Neutrophils % Neutrophils % (Manual) 87.4 H Band Neutrophils % 1.0 Lymphocytes % Lymphocytes % (Manual) 6.3 L D Monocytes % (Manual) 2 L Eosinophils % (Manual) 0.0 Basophils % (Manual) 0.0 Myelocytes % (Man) 1 D Promyelocytes % (Man) 0 Blast Cells % (Manual) 0 Nucleated RBC % 1 H Metamyelocytes 2 D Platelet Estimate Normal Sodium Potassium Chloride Carbon Dioxide Anion Gap BUN Creatinine POC Glucometer 185 266 Random Glucose Calcium 09/18/17 09/19/17 09/19/17 22:10 02:39 06:00 WBC 8.4 RBC 2.95 L Hgb 8.9 L Hct 26.4 L MCV 89.4 MCH 30.2 MCHC 33.8 RDW 18.6 H Plt Count 179 MPV 7.5 Neutrophils % No Result Required. Neutrophils % (Manual) Band Neutrophils % Lymphocytes % No Result Required. Lymphocytes % (Manual) Monocytes % (Manual) Eosinophils % (Manual) Basophils % (Manual) Myelocytes % (Man) Promyelocytes % (Man) Blast Cells % (Manual) Nucleated RBC % Metamyelocytes Platelet Estimate Sodium Potassium Chloride Carbon Dioxide Anion Gap BUN Creatinine POC Glucometer 128 116 Random Glucose Calcium 09/19/17 06:00 WBC RBC Hgb Hct MCV MCH MCHC RDW Plt Count MPV Neutrophils % Neutrophils % (Manual) Band Neutrophils % Lymphocytes % Lymphocytes % (Manual) Monocytes % (Manual) Eosinophils % (Manual) Basophils % (Manual) Myelocytes % (Man) Promyelocytes % (Man) Blast Cells % (Manual) Nucleated RBC % Metamyelocytes Platelet Estimate Sodium 139 Potassium 4.2 Chloride 104 Carbon Dioxide 24 Anion Gap 11 BUN 17 Creatinine 0.5 L POC Glucometer Random Glucose 108 H Calcium 8.0 L Active Medications Generic Name Dose Route Start Last Admin Trade Name Freq PRN Reason Stop Dose Admin Dexamethasone 2 mg 09/15/17 07:20 09/19/17 06:56 Decadron - PO 2 mg TID DIAN Administration Docusate Sodium 100 mg 09/10/17 14:43 09/15/17 09:45 Colace - PO 100 mg Q8H PRN Administration CONSTIPATION Enalapril Maleate 20 mg 09/11/17 10:00 09/18/17 10:46 Vasotec - PO 20 mg DAILY DIAN Administration IV Flush 4 ml 09/10/17 14:43 09/16/17 07:22 Triple Lumen Flush IVPUSH 4 ml PRN PRN Administration Protocol Daptomycin 750 mg/ Sodium 100 mls @ 50 mls/hr 09/10/17 17:00 09/18/17 18:00 Chloride IVPB 50 mls/hr Q24H DIAN Administration Protocol Ceftaroline Fosamil 600 mg/ 100 mls @ 100 mls/hr 09/12/17 19:00 09/19/17 02: 39 Dextrose IVPB 100 mls/hr Q8H-IV DIAN Administration Protocol Sodium Chloride 1,000 mls @ 75 mls/hr 09/16/17 09:00 09/18/17 10:44 Normal Saline - IV Not Given ASDIR DIAN Insulin Aspart 1 vial 09/16/17 09:00 09/19/17 02:43 Novolog Vial Sliding Scale - SQ Not Given Q6H DIAN Protocol Levetiracetam 500 mg 09/10/17 22:00 09/18/17 22:12 Keppra - PO 500 mg BID DIAN Administration Levothyroxine Sodium 150 mcg 09/11/17 07:00 09/19/17 06:56 Synthroid - PO 150 mcg DAILY@0700 DIAN Administration Lidocaine 1 patch 09/11/17 10:00 09/18/17 10:45 Lidoderm Patch - TP 1 patch DAILY DIAN Administration Miscellaneous 1 each 09/10/17 14:43 09/15/17 23:22 Duragesic Patch Waste TD 1 each PRN PRN Administration PAIN Miscellaneous 1 each 09/10/17 22:00 09/18/17 22:00 Lidoderm Patch Removal MC 1 each DAILY@2200 DIAN Administration Morphine Sulfate 1 mg 09/16/17 01:29 09/17/17 10:05 Morphine Sulfate IVPUSH 1 mg Q4H PRN Administration PAIN LEVEL 1-5 Mupirocin 1 applic 09/10/17 22:00 09/19/17 06:55 Bactroban 2% Cream - TP 1 applic TID DIAN Administration Ondansetron HCl 4 mg 09/10/17 14:38 Zofran Injection IVPUSH Q6H PRN NAUSEA AND/OR VOMITING Pantoprazole Sodium 40 mg 09/13/17 10:00 09/18/17 10:46 Protonix - PO 40 mg DAILY DIAN Administration Polyethylene Glycol 17 gm 09/10/17 17:23 09/18/17 10:45 Miralax (For Daily Use) - PO 17 grams DAILY DIAN Administration ASSESSMENT/PLAN: 61 year old F with pmh of 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 last bcx drawn yeterday -Continue Daptomycin 750 mg q24h and Ceftaroline 600 mg q8h. Will need nursing home abx per ID -ID on board #Metastatic Colon Cancer -Decadron 2mg TID -Pain control with fentanyl, oxycodone, and lidocaine patch -MRI of tibia-- bone mets #Abdominal pain, Partial vs complete sbo -Lactic acid normal -Advanced diets to Full liquid. May need NG tube if pt has n/v -Surgery consulted, Dr. Cohen -Likely will not proceed with surgical intervention #DM, newly diagnosed -ISS q6h -D/c levemir #HTN -Continue enalapril #FEN/GI -IVF @ 75 cc/hr -wnl -Full liquid diet #PPx -Scds -Protonix Overall prognosis is quite poor Visit type - Emergency Visit Emergency Visit: Yes ED Registration Date: 09/07/17 Care time: The patient presented to the Emergency Department on the above date and was hospitalized for further evaluation of their emergent condition. - New Patient This patient is new to me today: No - Critical Care Critical Care patient: No <Fredis Jacome - Last Filed: 09/19/17 18:40> Physical Exam: Patient is comfortable today with no acute distress, continue IV antibiotic for now for MRSA bacteremia. Repeat blood culture is negative so far, will monitor. Discussed with social media marketing manager possible, patient with go to [place]. Vital Signs Temperature 97.8 F 09/19/17 17:18 Pulse Rate 71 09/19/17 17:18 Respiratory Rate 18 09/19/17 17:18 Blood Pressure 116/75 09/19/17 17:18 O2 Sat by Pulse Oximetry (%) 97 09/19/17 09:00 CBCD WBC 8.4 K/mm3 (4.0-10.0) 09/19/17 06:00 RBC 2.95 M/mm3 (3.60-5.2) L 09/19/17 06:00 Hgb 8.9 GM/dL (10.7-15.3) L 09/19/17 06:00 Hct 26.4 % (32.4-45.2) L 09/19/17 06:00 MCV 89.4 fl (80-96) 09/19/17 06:00 MCHC 33.8 g/dl (32.0-36.0) 09/19/17 06:00 RDW 18.6 % (11.6-15.6) H 09/19/17 06:00 Plt Count 179 K/MM3 (134-434) 09/19/17 06:00 MPV 7.5 fl (7.5-11.1) 09/19/17 06:00 CMP Sodium 139 mmol/L (136-145) 09/19/17 06:00 Potassium 4.2 mmol/L (3.5-5.1) 09/19/17 06:00 Chloride 104 mmol/L (98-107) 09/19/17 06:00 Carbon Dioxide 24 mmol/L (21-32) 09/19/17 06:00 Anion Gap 11 (8-16) 09/19/17 06:00 BUN 17 mg/dL (7-18) 09/19/17 06:00 Creatinine 0.5 mg/dL (0.55-1.02) L 09/19/17 06:00 Creat Clearance w eGFR > 60 (>60) 09/17/17 06:50 Random Glucose 108 mg/dL (74-106) H 09/19/17 06:00 Calcium 8.0 mg/dL (8.5-10.1) L 09/19/17 06:00 Total Bilirubin 0.5 mg/dL (0.2-1.0) 09/17/17 06:50 AST 19 U/L (15-37) 09/17/17 06:50 ALT 44 U/L (12-78) 09/17/17 06:50 Alkaline Phosphatase 137 U/L (45-117) H 09/17/17 06:50 Total Protein 5.5 g/dl (6.4-8.2) L 09/17/17 06:50 Albumin 2.1 g/dl (3.4-5.0) L 09/17/17 06:50 CARDIAC ENZYMES Creatine Kinase 27 IU/L (26-192) 09/18/17 06:00 Current Medications Generic Name Dose Route Start Last Admin Trade Name Freq PRN Reason Stop Dose Admin Dexamethasone 2 mg 09/15/17 07:20 09/19/17 15:21 Decadron - PO 2 mg TID DIAN Administration Docusate Sodium 100 mg 09/10/17 14:43 09/19/17 11:19 Colace - PO 100 mg Q8H PRN Administration CONSTIPATION Enalapril Maleate 20 mg 09/11/17 10:00 09/19/17 11:00 Vasotec - PO 20 mg DAILY DIAN Administration IV Flush 4 ml 09/10/17 14:43 09/16/17 07:22 Triple Lumen Flush IVPUSH 4 ml PRN PRN Administration Protocol Daptomycin 750 mg/ Sodium 100 mls @ 50 mls/hr 09/10/17 17:00 09/19/17 17:24 Chloride IVPB 50 mls/hr Q24H DIAN Administration Protocol Ceftaroline Fosamil 600 mg/ 100 mls @ 100 mls/hr 09/12/17 19:00 09/19/17 17: 25 Dextrose IVPB 100 mls/hr Q8H-IV DIAN Administration Protocol Sodium Chloride 1,000 mls @ 75 mls/hr 09/16/17 09:00 09/19/17 15:21 Normal Saline - IV 75 mls/hr ASDIR DIAN Administration Insulin Aspart 1 vial 09/16/17 09:00 09/19/17 15:23 Novolog Vial Sliding Scale - SQ Not Given Q6H DIAN Protocol Levetiracetam 500 mg 09/10/17 22:00 09/19/17 11:00 Keppra - PO 500 mg BID DIAN Administration Levothyroxine Sodium 150 mcg 09/11/17 07:00 09/19/17 06:56 Synthroid - PO 150 mcg DAILY@0700 DIAN Administration Lidocaine 1 patch 09/11/17 10:00 09/19/17 11:00 Lidoderm Patch - TP 1 patch DAILY DIAN Administration Miscellaneous 1 each 09/10/17 14:43 09/15/17 23:22 Duragesic Patch Waste TD 1 each PRN PRN Administration PAIN Miscellaneous 1 each 09/10/17 22:00 09/18/17 22:00 Lidoderm Patch Removal MC 1 each DAILY@2200 DIAN Administration Morphine Sulfate 1 mg 09/16/17 01:29 09/17/17 10:05 Morphine Sulfate IVPUSH 1 mg Q4H PRN Administration PAIN LEVEL 1-5 Mupirocin 1 applic 09/10/17 22:00 09/19/17 14:00 Bactroban 2% Cream - TP 1 applic TID DIAN Administration Ondansetron HCl 4 mg 09/10/17 14:38 Zofran Injection IVPUSH Q6H PRN NAUSEA AND/OR VOMITING Pantoprazole Sodium 40 mg 09/13/17 10:00 09/19/17 11:00 Protonix - PO 40 mg DAILY DIAN Administration Polyethylene Glycol 17 gm 09/10/17 17:23 09/19/17 11:00 Miralax (For Daily Use) - PO 17 grams DAILY DIAN Administration Home Medications Medication Instructions Recorded Enalapril Maleate [Vasotec] 20 mg PO DAILY 12/24/16 Levothyroxine [Synthroid -] 150 mcg PO DAILY 12/24/16 Simvastatin [Zocor -] 10 mg PO HS 07/22/17 Dexamethasone [Decadron -] 4 mg PO Q6H #120 tablet 07/24/17 levETIRAcetam [Keppra -] 500 mg PO BID #60 tablet 07/24/17
[2017-09-19] MEDS: PANTOPRAZOLE 40 MG TABLET (FP) PO SCH (11:00)
[2017-09-19] MEDS: LIDOCAINE 5% TOPICAL PATCH TP SCH (11:00)
[2017-09-19] MEDS: ENALAPRIL MALEATE 10 MG TABLET (FP) PO SCH (11:00)
[2017-09-19] MEDS: POLYETHYLENE GLYCOL 3350 119 GM BTL PO SCH (11:00)
[2017-09-19] MEDS: levETIRAcetam 500 MG TABLET (FP) PO SCH ×2 (11:00→23:41)
[2017-09-19] MEDS: DOCUSATE SODIUM 100 MG CAPSULE (FP) PO PRN (11:19)
[2017-09-19 12:06] LABS: ANISOCYTOSIS 2+; MACROCYTOSIS 1+; PLATELET ESTIMATE NORMAL
[2017-09-19] MEDS: SODIUM CHLORIDE 1,000 ML IV SCH ×2 (13:00→15:21)
--- NOTE | 2017-09-19 14:41 | PN ---
Progress Note (short form) - Note Progress Note: alert port removed 09/10 abdominal pain less today tolerating liquids +BM no vomiting oob to chair ct scan ab/pelvis with mets and SBO Vital Signs Period Temp Pulse Resp BP Sys/[place] Pulse Ox Last 24 Hr 97.5 F-98.2 F 57-64 16-20 101-134/57-75 97 skin lesions drying cor-rrr lungs decreased bs at bases abd soft, nontender to palpation ext no edema CBC, BMP 09/19/17 06:00 09/19/17 06:00 Microbiology 09/15/17 08:08 Blood - Peripheral Venous Blood Culture - Preliminary NO GROWTH OBTAINED AFTER 96 HOURS, INCUBATION TO CONTINUE FOR 1 DAYS. 09/15/17 06:40 Blood - Peripheral Venous Blood Culture - Preliminary NO GROWTH OBTAINED AFTER 96 HOURS, INCUBATION TO CONTINUE FOR 1 DAYS. skin lesions drying a/p mrsa bacteremia-port removed port infecion skin lesions- staph continue daptomycin/ceftaroline-#10 cultures form 09/15 negative at 96h hours repeat blood cultures pending if negative will d/c ceftaroline on Friday and continue daptomycin she will require fpc iv antibiotics SBO secondary to incisional hernia- positive bone scan left femur- MRI noted metastatic colon cancer -on decadron for brain lesion-being tapered overall prognosis is poor advanced directives continue to be discussed with family and patient Problem List - Problems (1) Bacteremia Code(s): R78.81 - BACTEREMIA (2) Skin lesions, generalized Code(s): L98.9 - DISORDER OF THE SKIN AND SUBCUTANEOUS TISSUE, UNSPECIFIED (3) Colon cancer metastasized to multiple sites Code(s): C18.9 - MALIGNANT NEOPLASM OF COLON, UNSPECIFIED
--- NOTE | 2017-09-19 15:13 | PN ---
Physical Exam: SERVICE: Hematology and Oncology SUBJECTIVE: Tolerating diet and had 1 BM. No other acute event overnight. OBJECTIVE: Last Vital Signs Temp Pulse Resp BP Pulse Ox 97.5 F L 64 20 111/71 97 09/19/17 13:29 09/19/17 13:29 09/19/17 13:29 09/19/17 13:29 09/18/17 21:00 GENERAL: AAO x 3, no in cardiopulmonary distress HEAD: AT, NC EYES: PERRLA, sclera anicteric, conjunctiva pale ENT: oropharynx clear without exudates, pale and moist mucous membranes. CHEST: L TLC in place, R upper chest surgical clips in place NECK: No bruits or lymphedopathy LUNGS: CTAB HEART: RRR, S1, S2 without murmur, rub or gallop. ABDOMEN: Soft, diffuse tenderness upon light palpations, nondistended, hypoactive bowel sounds, no guarding, no rebound EXTREMITIES: no edema, tenderness upon pressing on b/l lower extremities, worse on the L SKIN: multiple scabbed lesions on face, arms and legs. CBCD WBC 8.4 K/mm3 (4.0-10.0) 09/19/17 06:00 RBC 2.95 M/mm3 (3.60-5.2) L 09/19/17 06:00 Hgb 8.9 GM/dL (10.7-15.3) L 09/19/17 06:00 Hct 26.4 % (32.4-45.2) L 09/19/17 06:00 MCV 89.4 fl (80-96) 09/19/17 06:00 MCHC 33.8 g/dl (32.0-36.0) 09/19/17 06:00 RDW 18.6 % (11.6-15.6) H 09/19/17 06:00 Plt Count 179 K/MM3 (134-434) 09/19/17 06:00 MPV 7.5 fl (7.5-11.1) 09/19/17 06:00 CMP Sodium 139 mmol/L (136-145) 09/19/17 06:00 Potassium 4.2 mmol/L (3.5-5.1) 09/19/17 06:00 Chloride 104 mmol/L (98-107) 09/19/17 06:00 Carbon Dioxide 24 mmol/L (21-32) 09/19/17 06:00 Anion Gap 11 (8-16) 09/19/17 06:00 BUN 17 mg/dL (7-18) 09/19/17 06:00 Creatinine 0.5 mg/dL (0.55-1.02) L 09/19/17 06:00 Creat Clearance w eGFR > 60 (>60) 09/17/17 06:50 Calcium 8.0 mg/dL (8.5-10.1) L 09/19/17 06:00 Total Bilirubin 0.5 mg/dL (0.2-1.0) 09/17/17 06:50 AST 19 U/L (15-37) 09/17/17 06:50 ALT 44 U/L (12-78) 09/17/17 06:50 Alkaline Phosphatase 137 U/L (45-117) H 09/17/17 06:50 Total Protein 5.5 g/dl (6.4-8.2) L 09/17/17 06:50 Albumin 2.1 g/dl (3.4-5.0) L 09/17/17 06:50 ASSESSMENT 61 yo F w/ HTN, 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 # SBO # MRSA bacteremia # Metastatic colonic CA, to brain and bone SBO resolved Cont. abx Cont. pain control and supportive care Visit type - Emergency Visit Emergency Visit: No - New Patient This patient is new to me today: No - Critical Care Critical Care patient: No - Discharge Referral Referred to [facility] Med P.C.: No
[2017-09-19] MEDS: DAPTOMYCIN 750 MG in SODIUM CHLORIDE 100 ML IVPB SCH (17:24)
[2017-09-19] MEDS ORDERED: morphine CARPU-JECT 2 MG/1 ML DISP.SYRIN IVPUSH ONE (19:52)
--- NOTE | 2017-09-19 20:02 | PN ---
Progress Note (short form) - Note Progress Note: Patient seen and examined Feels better Last Vital Signs Temp Pulse Resp BP Pulse Ox 97.8 F 71 18 116/75 97 09/19/17 17:18 09/19/17 17:18 09/19/17 17:18 09/19/17 17:18 09/19/17 09:00 Cor: RSR, No murmurs, No gallops Lungs: Clear to P&A Abd: Soft, Normal bowel sounds, No organomegaly Ext:No significant edema Active Medications Generic Name Dose Route Start Last Admin Trade Name Freq PRN Reason Stop Dose Admin Dexamethasone 2 mg 09/15/17 07:20 09/19/17 15:21 Decadron - PO 2 mg TID DIAN Administration Docusate Sodium 100 mg 09/10/17 14:43 09/19/17 11:19 Colace - PO 100 mg Q8H PRN Administration CONSTIPATION Enalapril Maleate 20 mg 09/11/17 10:00 09/19/17 11:00 Vasotec - PO 20 mg DAILY DIAN Administration IV Flush 4 ml 09/10/17 14:43 09/16/17 07:22 Triple Lumen Flush IVPUSH 4 ml PRN PRN Administration Protocol Daptomycin 750 mg/ Sodium 100 mls @ 50 mls/hr 09/10/17 17:00 09/19/17 17:24 Chloride IVPB 50 mls/hr Q24H DIAN Administration Protocol Ceftaroline Fosamil 600 mg/ 100 mls @ 100 mls/hr 09/12/17 19:00 09/19/17 17: 25 Dextrose IVPB 100 mls/hr Q8H-IV DIAN Administration Protocol Sodium Chloride 1,000 mls @ 75 mls/hr 09/16/17 09:00 09/19/17 15:21 Normal Saline - IV 75 mls/hr ASDIR DIAN Administration Insulin Aspart 1 vial 09/16/17 09:00 09/19/17 15:23 Novolog Vial Sliding Scale - SQ Not Given Q6H DIAN Protocol Levetiracetam 500 mg 09/10/17 22:00 09/19/17 11:00 Keppra - PO 500 mg BID DIAN Administration Levothyroxine Sodium 150 mcg 09/11/17 07:00 09/19/17 06:56 Synthroid - PO 150 mcg DAILY@0700 DIAN Administration Lidocaine 1 patch 09/11/17 10:00 09/19/17 11:00 Lidoderm Patch - TP 1 patch DAILY DIAN Administration Miscellaneous 1 each 09/10/17 14:43 09/15/17 23:22 Duragesic Patch Waste TD 1 each PRN PRN Administration PAIN Miscellaneous 1 each 09/10/17 22:00 09/18/17 22:00 Lidoderm Patch Removal MC 1 each DAILY@2200 DIAN Administration Morphine Sulfate 1 mg 09/16/17 01:29 09/17/17 10:05 Morphine Sulfate IVPUSH 1 mg Q4H PRN Administration PAIN LEVEL 1-5 Mupirocin 1 applic 09/10/17 22:00 09/19/17 14:00 Bactroban 2% Cream - TP 1 applic TID DIAN Administration Ondansetron HCl 4 mg 09/10/17 14:38 Zofran Injection IVPUSH Q6H PRN NAUSEA AND/OR VOMITING Pantoprazole Sodium 40 mg 09/13/17 10:00 09/19/17 11:00 Protonix - PO 40 mg DAILY DIAN Administration Polyethylene Glycol 17 gm 09/10/17 17:23 09/19/17 11:00 Miralax (For Daily Use) - PO 17 grams DAILY DIAN Administration Abnormal Lab Results 09/19/17 09/19/17 06:00 06:00 RBC 2.95 L Hgb 8.9 L Hct 26.4 L RDW 18.6 H Neutrophils % (Manual) 84.8 H Lymphocytes % (Manual) 7.1 L Creatinine 0.5 L Random Glucose 108 H Calcium 8.0 L Abnormal Lab Results 09/19/17 09/19/17 06:00 06:00 RBC 2.95 L Hgb 8.9 L Hct 26.4 L RDW 18.6 H Neutrophils % (Manual) 84.8 H Lymphocytes % (Manual) 7.1 L Creatinine 0.5 L Random Glucose 108 H Calcium 8.0 L A/P 61 year old female with metastatic colon cancer brain mets on steroid taper staph skin and port infection On ceftaroline/daptomycin continue current management
[2017-09-19] MEDS: LIDOCAINE PATCH REMOVAL MC SCH (23:41)
[2017-09-19] MEDS: morphine SULFATE 4 MG/ML VIAL IVPUSH PRN (23:57)
[2017-09-20] MEDS ORDERED: PT OWN MED DRAWER 7, Y5N ONE (01:50)
[2017-09-20] MEDS: CEFTAROLINE FOSAMIL ACETATE 600 MG in DEXTROSE 5%-WATER - 100 ML IVPB SCH ×3 (01:54→17:03)
[2017-09-20] MEDS: INSULIN SLIDING SCALE (NOVOLOG) 1 VIAL SQ SCH ×4 (02:46→21:39)
[2017-09-20] MEDS: DEXAMETHASONE 4 MG TABLET (FP) PO SCH ×3 (06:02→21:39)
[2017-09-20] MEDS: MUPIROCIN CA 2% TOPICAL CREAM 15 GM TUBE TP SCH ×3 (06:03→21:39)
[2017-09-20] MEDS: LEVOTHYROXINE NA 150 MCG TABLET PO SCH (06:03)
[2017-09-20] MEDS: SODIUM CHLORIDE 1,000 ML IV SCH ×2 (06:23→11:43)
[2017-09-20 08:00] LABS: HEMATOCRIT 25.4 % (32.4-45.2); HEMOGLOBIN 8.7 GM/dL (10.7-15.3); MCH 30.4 pg (25.7-33.7); MCHC 34.3 g/dl (32.0-36.0); MEAN CELL VOLUME 88.8 fl (80-96); MEAN PLT VOLUME 7.6 fl (7.5-11.1); PLATELET COUNT 165 K/MM3 (134-434); RBC 2.86 M/mm3 (3.60-5.2); RDW 18.9 % (11.6-15.6); WHITE BLOOD COUNT 6.8 K/mm3 (4.0-10.0)
[2017-09-20 08:29] LABS: ANION GAP 7 (8-16); BLOOD UREA NITROGEN 18 mg/dL (7-18); CALCIUM 7.9 mg/dL (8.5-10.1); CHLORIDE 103 mmol/L (98-107); CO2 28 mmol/L (21-32); GLUCOSE,RANDOM 159 mg/dL (74-106); POTASSIUM 4.3 mmol/L (3.5-5.1); SODIUM 138 mmol/L (136-145)
[2017-09-20 08:30] LABS: CREATININE 0.5 mg/dL (0.55-1.02)
[2017-09-20] MEDS: POLYETHYLENE GLYCOL 3350 119 GM BTL PO SCH (10:00)
[2017-09-20] MEDS: ENALAPRIL MALEATE 10 MG TABLET (FP) PO SCH (10:27)
[2017-09-20] MEDS: LIDOCAINE 5% TOPICAL PATCH TP SCH (10:27)
[2017-09-20] MEDS: PANTOPRAZOLE 40 MG TABLET (FP) PO SCH (10:27)
[2017-09-20] MEDS: levETIRAcetam 500 MG TABLET (FP) PO SCH ×2 (10:28→21:39)
--- NOTE | 2017-09-20 11:51 | PN ---
Progress Note, Physician History of Present Illness: Awake, alert Offers no complaints Afebrile WBC WNL BC (09/18) no growth - Current Medication List Current Medications: Active Medications Dexamethasone (Decadron -) 2 mg PO TID [facility] Last Admin: 09/20/17 06:02 Dose: 2 mg Docusate Sodium (Colace -) 100 mg PO Q8H PRN PRN Reason: CONSTIPATION Last Admin: 09/19/17 11:19 Dose: 100 mg Enalapril Maleate (Vasotec -) 20 mg PO DAILY [facility] Last Admin: 09/20/17 10:27 Dose: 20 mg IV Flush (Triple Lumen Flush) 4 ml IVPUSH PRN PRN PRN Reason: Protocol Last Admin: 09/16/17 07:22 Dose: 4 ml Daptomycin 750 mg/ Sodium (Chloride) 100 mls @ 50 mls/hr IVPB Q24H DIAN PRN Reason: Protocol Last Admin: 09/19/17 17:24 Dose: 50 mls/hr Ceftaroline Fosamil 600 mg/ (Dextrose) 100 mls @ 100 mls/hr IVPB Q8H-IV DIAN PRN Reason: Protocol Last Admin: 09/20/17 10:28 Dose: 100 mls/hr Sodium Chloride (Normal Saline -) 1,000 mls @ 75 mls/hr IV ASDIR [facility] Last Admin: 09/20/17 11:43 Dose: Not Given Insulin Aspart (Novolog Vial Sliding Scale -) 1 vial SQ Q6H DIAN PRN Reason: Protocol Last Admin: 09/20/17 11:44 Dose: 2 units Levetiracetam (Keppra -) 500 mg PO BID [facility] Last Admin: 09/20/17 10:28 Dose: 500 mg Levothyroxine Sodium (Synthroid -) 150 mcg PO DAILY@0700 [facility] Last Admin: 09/20/17 06:03 Dose: 150 mcg Lidocaine (Lidoderm Patch -) 1 patch TP DAILY [facility] Last Admin: 09/20/17 10:27 Dose: 1 patch Miscellaneous (Duragesic Patch Waste) 1 each TD PRN PRN PRN Reason: PAIN Last Admin: 09/15/17 23:22 Dose: 1 each Miscellaneous (Lidoderm Patch Removal) 1 each MC DAILY@2200 [facility] Last Admin: 09/19/17 23:41 Dose: 1 each Morphine Sulfate (Morphine Sulfate) 1 mg IVPUSH Q4H PRN PRN Reason: PAIN LEVEL 1-5 Last Admin: 09/19/17 23:57 Dose: 1 mg Mupirocin (Bactroban 2% Cream -) 1 applic TP TID [facility] Last Admin: 09/20/17 06:03 Dose: 1 applic Ondansetron HCl (Zofran Injection) 4 mg IVPUSH Q6H PRN PRN Reason: NAUSEA AND/OR VOMITING Pantoprazole Sodium (Protonix -) 40 mg PO DAILY [facility] Last Admin: 09/20/17 10:27 Dose: 40 mg Polyethylene Glycol (Miralax (For Daily Use) -) 17 gm PO DAILY [facility] Last Admin: 09/20/17 10:00 Dose: 17 grams - Objective Vital Signs: Vital Signs Temperature 97.5 F L 09/20/17 09:00 Pulse Rate 60 09/20/17 09:00 Respiratory Rate 18 09/20/17 09:00 Blood Pressure 123/68 09/20/17 09:00 O2 Sat by Pulse Oximetry (%) 97 09/19/17 21:00 Constitutional: Yes: No Distress Eyes: Yes: Conjunctiva Clear Cardiovascular: Yes: Regular Rate and Rhythm, S1, S2 Respiratory: Yes: Diminished Gastrointestinal: Yes: Normal Bowel Sounds, Soft. No: Tenderness Edema: Yes Labs: CBC, BMP 09/20/17 07:00 09/20/17 07:00 INR, PTT INR 1.07 (0.82-1.09) 09/07/17 17:38 Assessment/Plan MRSA bacteremia S/P removal of port Continue daptomycin/ ceftaroline #11
--- NOTE | 2017-09-20 14:23 | PN ---
Progress Note (short form) - Note Progress Note: Chief Complaint: Events noted, notes reviewed, denies any chest pain History of Present Illness: Seen and examined. Events noted, notes reviewed, denies any chest pain - Current Medication List Current Medications: Current Medications Dexamethasone (Decadron -) 2 mg PO TID [facility] Last Admin: 09/20/17 06:02 Dose: 2 mg Docusate Sodium (Colace -) 100 mg PO Q8H PRN PRN Reason: CONSTIPATION Last Admin: 09/19/17 11:19 Dose: 100 mg Enalapril Maleate (Vasotec -) 20 mg PO DAILY [facility] Last Admin: 09/20/17 10:27 Dose: 20 mg IV Flush (Triple Lumen Flush) 4 ml IVPUSH PRN PRN PRN Reason: Protocol Last Admin: 09/16/17 07:22 Dose: 4 ml Daptomycin 750 mg/ Sodium (Chloride) 100 mls @ 50 mls/hr IVPB Q24H DIAN PRN Reason: Protocol Last Admin: 09/19/17 17:24 Dose: 50 mls/hr Ceftaroline Fosamil 600 mg/ (Dextrose) 100 mls @ 100 mls/hr IVPB Q8H-IV DIAN PRN Reason: Protocol Last Admin: 09/20/17 10:28 Dose: 100 mls/hr Sodium Chloride (Normal Saline -) 1,000 mls @ 75 mls/hr IV ASDIR [facility] Last Admin: 09/20/17 11:43 Dose: Not Given Insulin Aspart (Novolog Vial Sliding Scale -) 1 vial SQ Q6H DIAN PRN Reason: Protocol Last Admin: 09/20/17 11:44 Dose: 2 units Levetiracetam (Keppra -) 500 mg PO BID [facility] Last Admin: 09/20/17 10:28 Dose: 500 mg Levothyroxine Sodium (Synthroid -) 150 mcg PO DAILY@0700 [facility] Last Admin: 09/20/17 06:03 Dose: 150 mcg Lidocaine (Lidoderm Patch -) 1 patch TP DAILY [facility] Last Admin: 09/20/17 10:27 Dose: 1 patch Miscellaneous (Duragesic Patch Waste) 1 each TD PRN PRN PRN Reason: PAIN Last Admin: 09/15/17 23:22 Dose: 1 each Miscellaneous (Lidoderm Patch Removal) 1 each MC DAILY@2200 [facility] Last Admin: 09/19/17 23:41 Dose: 1 each Mupirocin (Bactroban 2% Cream -) 1 applic TP TID [facility] Last Admin: 09/20/17 06:03 Dose: 1 applic Ondansetron HCl (Zofran Injection) 4 mg IVPUSH Q6H PRN PRN Reason: NAUSEA AND/OR VOMITING Pantoprazole Sodium (Protonix -) 40 mg PO DAILY [facility] Last Admin: 09/20/17 10:27 Dose: 40 mg Polyethylene Glycol (Miralax (For Daily Use) -) 17 gm PO DAILY [facility] Last Admin: 09/20/17 10:00 Dose: 17 grams - Objective Vital Signs: Last Vital Signs Temp Pulse Resp BP Pulse Ox 97.5 F L 60 18 123/68 97 09/20/17 09:00 09/20/17 09:00 09/20/17 09:00 09/20/17 09:00 09/19/17 21:00 Intake & Output 09/17/17 09/18/17 09/19/17 09/20/17 23:59 23:59 23:59 23:59 Intake Total 2300 2200 2475 600 Balance 2300 2200 2475 600 HEENT: Atraumatic Neck: Supple Negative JVD Cardiovascular: S1 S2 Regular Rate and Rhythm Respiratory: Diminished Gastrointestinal: Soft Benign Ext: No Edema Labs: CBC, BMP 09/20/17 07:00 09/20/17 07:00 Assessment/Plan ASSESSMENT: 1. MRSA bacteremia suspect line sepsis post I&D of back abscess/removal of port 2. Metastatic colon carcinoma, lungs and brain post chemotherapy 3. HTN 4. Diabetes mellitus 5. Hypothyroidism 6. Anemia PLAN: 1. Continue antibiotics as per the primary team, and if MRSA bacteremia persists , would consider DIANA to exclude endocarditis, repeat blood cultures thus far negative 2. Continue Vasotec 3. Continue steroids as per the primary team Ansley Arguello MD
[2017-09-20 14:31] LABS: PLATELET ESTIMATE NORMAL
--- NOTE | 2017-09-20 16:25 | PN ---
Progress Note (short form) - Note Progress Note: Patient seen and examined Feels better Last Vital Signs Temp Pulse Resp BP Pulse Ox 97.5 F L 60 18 123/68 97 09/20/17 09:00 09/20/17 09:00 09/20/17 09:00 09/20/17 09:00 09/20/17 09:00 Cor: RSR, No murmurs, No gallops Lungs: Clear to P&A Abd: Soft, Normal bowel sounds, No organomegaly Ext:No significant edema Abnormal Lab Results 09/20/17 09/20/17 07:00 07:00 RBC 2.86 L Hgb 8.7 L Hct 25.4 L RDW 18.9 H Myelocytes % (Man) 3 H Nucleated RBC % 2 H Anion Gap 7 L Creatinine 0.5 L Random Glucose 159 H Calcium 7.9 L Active Medications Generic Name Dose Route Start Last Admin Trade Name Freq PRN Reason Stop Dose Admin Dexamethasone 2 mg 09/15/17 07:20 09/20/17 06:02 Decadron - PO 2 mg TID DIAN Administration Docusate Sodium 100 mg 09/10/17 14:43 09/19/17 11:19 Colace - PO 100 mg Q8H PRN Administration CONSTIPATION Enalapril Maleate 20 mg 09/11/17 10:00 09/20/17 10:27 Vasotec - PO 20 mg DAILY DIAN Administration IV Flush 4 ml 09/10/17 14:43 09/16/17 07:22 Triple Lumen Flush IVPUSH 4 ml PRN PRN Administration Protocol Daptomycin 750 mg/ Sodium 100 mls @ 50 mls/hr 09/10/17 17:00 09/19/17 17:24 Chloride IVPB 50 mls/hr Q24H DIAN Administration Protocol Ceftaroline Fosamil 600 mg/ 100 mls @ 100 mls/hr 09/12/17 19:00 09/20/17 10: 28 Dextrose IVPB 100 mls/hr Q8H-IV DIAN Administration Protocol Sodium Chloride 1,000 mls @ 75 mls/hr 09/16/17 09:00 09/20/17 11:43 Normal Saline - IV Not Given ASDIR DIAN Insulin Aspart 1 vial 09/16/17 09:00 09/20/17 11:44 Novolog Vial Sliding Scale - SQ 2 units Q6H DIAN Administration Protocol Levetiracetam 500 mg 09/10/17 22:00 09/20/17 10:28 Keppra - PO 500 mg BID DIAN Administration Levothyroxine Sodium 150 mcg 09/11/17 07:00 09/20/17 06:03 Synthroid - PO 150 mcg DAILY@0700 DIAN Administration Lidocaine 1 patch 09/11/17 10:00 09/20/17 10:27 Lidoderm Patch - TP 1 patch DAILY DIAN Administration Miscellaneous 1 each 09/10/17 14:43 09/15/17 23:22 Duragesic Patch Waste TD 1 each PRN PRN Administration PAIN Miscellaneous 1 each 09/10/17 22:00 09/19/17 23:41 Lidoderm Patch Removal MC 1 each DAILY@2200 DIAN Administration Mupirocin 1 applic 09/10/17 22:00 09/20/17 06:03 Bactroban 2% Cream - TP 1 applic TID DIAN Administration Ondansetron HCl 4 mg 09/10/17 14:38 Zofran Injection IVPUSH Q6H PRN NAUSEA AND/OR VOMITING Pantoprazole Sodium 40 mg 09/13/17 10:00 09/20/17 10:27 Protonix - PO 40 mg DAILY DIAN Administration Polyethylene Glycol 17 gm 09/10/17 17:23 09/20/17 10:00 Miralax (For Daily Use) - PO 17 grams DAILY DIAN Administration A/P 61 year old female with metastatic colon cancer brain mets on steroid taper staph skin and port infection On ceftaroline/daptomycin continue current management
[2017-09-20] MEDS: DAPTOMYCIN 750 MG in SODIUM CHLORIDE 100 ML IVPB SCH (18:00)
--- NOTE | 2017-09-20 19:39 | PN ---
Physical Exam: SUBJECTIVE: Patient seen and examined OBJECTIVE: Vital Signs Temperature 97.6 F 09/20/17 18:00 Pulse Rate 58 L 09/20/17 18:00 Respiratory Rate 18 09/20/17 18:00 Blood Pressure 111/66 09/20/17 18:00 O2 Sat by Pulse Oximetry (%) 97 09/20/17 09:00 GENERAL: The patient is awake, alert, and fully oriented, in no acute distress. HEAD: Normal with no signs of trauma. EYES: PERRL, extraocular movements intact, sclera anicteric, conjunctiva clear. No ptosis. ENT: Ears normal, nares patent, oropharynx clear without exudates, moist mucous membranes. NECK: Trachea midline, full range of motion, supple. LUNGS: Breath sounds equal, clear to auscultation bilaterally, no wheezes, no crackles, no accessory muscle use. HEART: Regular rate and rhythm, S1, S2 without murmur, rub or gallop. ABDOMEN: Soft, nontender, nondistended, normoactive bowel sounds, no guarding, no rebound, no hepatosplenomegaly, no masses. EXTREMITIES: 2+ pulses, warm, well-perfused, no edema. NEUROLOGICAL: Cranial nerves II through XII grossly intact. Normal speech, gait not observed. PSYCH: Normal mood, normal affect. SKIN: Warm, dry, normal turgor, no rashes or lesions noted CBCD WBC 6.8 K/mm3 (4.0-10.0) 09/20/17 07:00 RBC 2.86 M/mm3 (3.60-5.2) L 09/20/17 07:00 Hgb 8.7 GM/dL (10.7-15.3) L 09/20/17 07:00 Hct 25.4 % (32.4-45.2) L 09/20/17 07:00 MCV 88.8 fl (80-96) 09/20/17 07:00 MCHC 34.3 g/dl (32.0-36.0) 09/20/17 07:00 RDW 18.9 % (11.6-15.6) H 09/20/17 07:00 Plt Count 165 K/MM3 (134-434) 09/20/17 07:00 MPV 7.6 fl (7.5-11.1) 09/20/17 07:00 CMP Sodium 138 mmol/L (136-145) 09/20/17 07:00 Potassium 4.3 mmol/L (3.5-5.1) 09/20/17 07:00 Chloride 103 mmol/L (98-107) 09/20/17 07:00 Carbon Dioxide 28 mmol/L (21-32) 09/20/17 07:00 Anion Gap 7 (8-16) L 09/20/17 07:00 BUN 18 mg/dL (7-18) 09/20/17 07:00 Creatinine 0.5 mg/dL (0.55-1.02) L 09/20/17 07:00 Creat Clearance w eGFR > 60 (>60) 09/17/17 06:50 Random Glucose 159 mg/dL (74-106) H 09/20/17 07:00 Calcium 7.9 mg/dL (8.5-10.1) L 09/20/17 07:00 Total Bilirubin 0.5 mg/dL (0.2-1.0) 09/17/17 06:50 AST 19 U/L (15-37) 09/17/17 06:50 ALT 44 U/L (12-78) 09/17/17 06:50 Alkaline Phosphatase 137 U/L (45-117) H 09/17/17 06:50 Total Protein 5.5 g/dl (6.4-8.2) L 09/17/17 06:50 Albumin 2.1 g/dl (3.4-5.0) L 09/17/17 06:50 CARDIAC ENZYMES Creatine Kinase 27 IU/L (26-192) 09/18/17 06:00 Current Medications Generic Name Dose Route Start Last Admin Trade Name Freq PRN Reason Stop Dose Admin Dexamethasone 2 mg 09/15/17 07:20 09/20/17 14:00 Decadron - PO 2 mg TID DIAN Administration Docusate Sodium 100 mg 09/10/17 14:43 09/19/17 11:19 Colace - PO 100 mg Q8H PRN Administration CONSTIPATION Enalapril Maleate 20 mg 09/11/17 10:00 09/20/17 10:27 Vasotec - PO 20 mg DAILY DIAN Administration IV Flush 4 ml 09/10/17 14:43 09/16/17 07:22 Triple Lumen Flush IVPUSH 4 ml PRN PRN Administration Protocol Daptomycin 750 mg/ Sodium 100 mls @ 50 mls/hr 09/10/17 17:00 09/20/17 18:00 Chloride IVPB 50 mls/hr Q24H DIAN Administration Protocol Ceftaroline Fosamil 600 mg/ 100 mls @ 100 mls/hr 09/12/17 19:00 09/20/17 17: 03 Dextrose IVPB 100 mls/hr Q8H-IV DIAN Administration Protocol Sodium Chloride 1,000 mls @ 75 mls/hr 09/16/17 09:00 09/20/17 11:43 Normal Saline - IV Not Given ASDIR DIAN Insulin Aspart 1 vial 09/16/17 09:00 09/20/17 16:55 Novolog Vial Sliding Scale - SQ Not Given Q6H DIAN Protocol Levetiracetam 500 mg 09/10/17 22:00 09/20/17 10:28 Keppra - PO 500 mg BID DIAN Administration Levothyroxine Sodium 150 mcg 09/11/17 07:00 09/20/17 06:03 Synthroid - PO 150 mcg DAILY@0700 DIAN Administration Lidocaine 1 patch 09/11/17 10:00 09/20/17 10:27 Lidoderm Patch - TP 1 patch DAILY DIAN Administration Miscellaneous 1 each 09/10/17 14:43 09/15/17 23:22 Duragesic Patch Waste TD 1 each PRN PRN Administration PAIN Miscellaneous 1 each 09/10/17 22:00 09/19/17 23:41 Lidoderm Patch Removal MC 1 each DAILY@2200 DIAN Administration Mupirocin 1 applic 09/10/17 22:00 09/20/17 15:00 Bactroban 2% Cream - TP 1 applic TID DIAN Administration Ondansetron HCl 4 mg 09/10/17 14:38 Zofran Injection IVPUSH Q6H PRN NAUSEA AND/OR VOMITING Pantoprazole Sodium 40 mg 09/13/17 10:00 09/20/17 10:27 Protonix - PO 40 mg DAILY DIAN Administration Polyethylene Glycol 17 gm 09/10/17 17:23 09/20/17 10:00 Miralax (For Daily Use) - PO 17 grams DAILY DIAN Administration Home Medications Medication Instructions Recorded Enalapril Maleate [Vasotec] 20 mg PO DAILY 07/04/17 Levothyroxine [Synthroid -] 150 mcg PO DAILY 12/24/16 Simvastatin [Zocor -] 10 mg PO HS 07/22/17 Dexamethasone [Decadron -] 4 mg PO Q6H #120 tablet 07/24/17 levETIRAcetam [Keppra -] 500 mg PO BID #60 tablet 07/24/17 A/P: 61 year old F with pmh of metastatic colon cancer to lungs/brain/bone s/p chemo presented with skin lesions found to have MRSA bacteremia #MRSA bacteremia and skin lesions continue current treatment as per ID, repeat Blood Cx is negative. #Metastatic Colon Cancer continue current therapy as per oncology MRI of tibia- - bone mets #Abdominal pain, Partial vs complete sbo. symptoms are improving #DM most likely due to steroid use ; newly diagnosed, SS with coverage #HTN continue enalapril Waiting for calvary replacement Visit type - Emergency Visit Emergency Visit: Yes ED Registration Date: 09/07/17 Care time: The patient presented to the Emergency Department on the above date and was hospitalized for further evaluation of their emergent condition. - New Patient This patient is new to me today: No - Critical Care Critical Care patient: No - Discharge Referral Referred to [facility] Med P.C.: No
[2017-09-20] MEDS: oxyCODONE HCL 5 MG TABLET PO PRN (21:38)
[2017-09-20] MEDS: LIDOCAINE PATCH REMOVAL MC SCH (21:39)
[2017-09-21] MEDS: oxyCODONE HCL 5 MG TABLET PO PRN ×5 (01:09→22:31)
[2017-09-21] MEDS ORDERED: PT OWN MED DRAWER 7, Y5N ONE ×4 (02:25→20:55)
[2017-09-21] MEDS: CEFTAROLINE FOSAMIL ACETATE 600 MG in DEXTROSE 5%-WATER - 100 ML IVPB SCH ×3 (02:56→20:58)
[2017-09-21] MEDS: INSULIN SLIDING SCALE (NOVOLOG) 1 VIAL SQ SCH ×4 (03:01→22:31)
[2017-09-21] MEDS: LEVOTHYROXINE NA 150 MCG TABLET PO SCH (06:16)
[2017-09-21] MEDS: DEXAMETHASONE 4 MG TABLET (FP) PO SCH ×3 (06:17→22:30)
[2017-09-21] MEDS: MUPIROCIN CA 2% TOPICAL CREAM 15 GM TUBE TP SCH ×3 (06:19→22:39)
[2017-09-21] MEDS: levETIRAcetam 500 MG TABLET (FP) PO SCH ×2 (09:02→22:30)
[2017-09-21] MEDS: PANTOPRAZOLE 40 MG TABLET (FP) PO SCH (09:02)
[2017-09-21] MEDS: SODIUM CHLORIDE 1,000 ML IV SCH (09:03)
[2017-09-21] MEDS: ENALAPRIL MALEATE 10 MG TABLET (FP) PO SCH (09:03)
[2017-09-21] MEDS: LIDOCAINE 5% TOPICAL PATCH TP SCH (09:03)
[2017-09-21] MEDS: POLYETHYLENE GLYCOL 3350 119 GM BTL PO SCH (09:03)
--- NOTE | 2017-09-21 10:47 | PN ---
Progress Note, Physician History of Present Illness: Awake, alert Offers no complaints Afebrile WBC WNL BC (09/18, 09/15 ) no growth - Current Medication List Current Medications: Active Medications Dexamethasone (Decadron -) 2 mg PO TID [facility] Last Admin: 09/21/17 06:17 Dose: 2 mg Docusate Sodium (Colace -) 100 mg PO Q8H PRN PRN Reason: CONSTIPATION Last Admin: 09/19/17 11:19 Dose: 100 mg Enalapril Maleate (Vasotec -) 20 mg PO DAILY [facility] Last Admin: 09/21/17 09:03 Dose: 20 mg IV Flush (Triple Lumen Flush) 4 ml IVPUSH PRN PRN PRN Reason: Protocol Last Admin: 09/16/17 07:22 Dose: 4 ml Daptomycin 750 mg/ Sodium (Chloride) 100 mls @ 50 mls/hr IVPB Q24H DIAN PRN Reason: Protocol Last Admin: 09/20/17 18:00 Dose: 50 mls/hr Ceftaroline Fosamil 600 mg/ (Dextrose) 100 mls @ 100 mls/hr IVPB Q8H-IV DIAN PRN Reason: Protocol Last Admin: 09/21/17 09:02 Dose: 100 mls/hr Sodium Chloride (Normal Saline -) 1,000 mls @ 75 mls/hr IV ASDIR [facility] Last Admin: 09/21/17 09:03 Dose: Not Given Insulin Aspart (Novolog Vial Sliding Scale -) 1 vial SQ Q6H DIAN PRN Reason: Protocol Last Admin: 09/21/17 08:54 Dose: Not Given Levetiracetam (Keppra -) 500 mg PO BID [facility] Last Admin: 09/21/17 09:02 Dose: 500 mg Levothyroxine Sodium (Synthroid -) 150 mcg PO DAILY@0700 [facility] Last Admin: 09/21/17 06:16 Dose: 150 mcg Lidocaine (Lidoderm Patch -) 1 patch TP DAILY [facility] Last Admin: 09/21/17 09:03 Dose: 1 patch Miscellaneous (Duragesic Patch Waste) 1 each TD PRN PRN PRN Reason: PAIN Last Admin: 09/15/17 23:22 Dose: 1 each Miscellaneous (Lidoderm Patch Removal) 1 each MC DAILY@2200 [facility] Last Admin: 09/20/17 21:39 Dose: 1 each Mupirocin (Bactroban 2% Cream -) 1 applic TP TID [facility] Last Admin: 09/21/17 06:19 Dose: 1 applic Ondansetron HCl (Zofran Injection) 4 mg IVPUSH Q6H PRN PRN Reason: NAUSEA AND/OR VOMITING Oxycodone HCl (Roxicodone -) 5 mg PO Q4H PRN PRN Reason: PAIN LEVEL 1-5 Last Admin: 09/21/17 09:02 Dose: 5 mg Pantoprazole Sodium (Protonix -) 40 mg PO DAILY [facility] Last Admin: 09/21/17 09:02 Dose: 40 mg Polyethylene Glycol (Miralax (For Daily Use) -) 17 gm PO DAILY [facility] Last Admin: 09/21/17 09:03 Dose: 17 grams - Objective Vital Signs: Vital Signs Temperature 97.3 F L 09/21/17 07:00 Pulse Rate 57 L 09/21/17 07:00 Respiratory Rate 20 09/21/17 07:00 Blood Pressure 126/67 09/21/17 07:00 O2 Sat by Pulse Oximetry (%) 99 09/20/17 21:00 Constitutional: Yes: No Distress, Obese Cardiovascular: Yes: Regular Rate and Rhythm, S1, S2 Respiratory: Yes: Diminished Gastrointestinal: Yes: Normal Bowel Sounds, Soft, Abdomen, Obese. No: Tenderness Edema: Yes Labs: CBC, BMP 09/20/17 07:00 09/20/17 07:00 INR, PTT INR 1.07 (0.82-1.09) 09/07/17 17:38 Assessment/Plan MRSA bacteremia S/P removal of port Continue daptomycin/ ceftaroline #12
--- NOTE | 2017-09-21 13:26 | PN ---
Progress Note (short form) - Note Progress Note: Chief Complaint: Events noted, notes reviewed, denies any chest pain History of Present Illness: Seen and examined. Events noted, notes reviewed, denies any chest pain - Current Medication List Current Medications: Current Medications Dexamethasone (Decadron -) 2 mg PO TID [facility] Last Admin: 09/21/17 13:15 Dose: 2 mg Docusate Sodium (Colace -) 100 mg PO Q8H PRN PRN Reason: CONSTIPATION Last Admin: 09/19/17 11:19 Dose: 100 mg Enalapril Maleate (Vasotec -) 20 mg PO DAILY [facility] Last Admin: 09/21/17 09:03 Dose: 20 mg IV Flush (Triple Lumen Flush) 4 ml IVPUSH PRN PRN PRN Reason: Protocol Last Admin: 09/16/17 07:22 Dose: 4 ml Daptomycin 750 mg/ Sodium (Chloride) 100 mls @ 50 mls/hr IVPB Q24H DIAN PRN Reason: Protocol Last Admin: 09/20/17 18:00 Dose: 50 mls/hr Ceftaroline Fosamil 600 mg/ (Dextrose) 100 mls @ 100 mls/hr IVPB Q8H-IV DIAN PRN Reason: Protocol Last Admin: 09/21/17 09:02 Dose: 100 mls/hr Insulin Aspart (Novolog Vial Sliding Scale -) 0 vial SQ ACHS DIAN PRN Reason: Protocol Levetiracetam (Keppra -) 500 mg PO BID [facility] Last Admin: 09/21/17 09:02 Dose: 500 mg Levothyroxine Sodium (Synthroid -) 150 mcg PO DAILY@0700 [facility] Last Admin: 09/21/17 06:16 Dose: 150 mcg Lidocaine (Lidoderm Patch -) 1 patch TP DAILY [facility] Last Admin: 09/21/17 09:03 Dose: 1 patch Miscellaneous (Duragesic Patch Waste) 1 each TD PRN PRN PRN Reason: PAIN Last Admin: 09/15/17 23:22 Dose: 1 each Miscellaneous (Lidoderm Patch Removal) 1 each MC DAILY@2200 [facility] Last Admin: 09/20/17 21:39 Dose: 1 each Mupirocin (Bactroban 2% Cream -) 1 applic TP TID [facility] Last Admin: 09/21/17 06:19 Dose: 1 applic Ondansetron HCl (Zofran Injection) 4 mg IVPUSH Q6H PRN PRN Reason: NAUSEA AND/OR VOMITING Oxycodone HCl (Roxicodone -) 5 mg PO Q4H PRN PRN Reason: PAIN LEVEL 1-5 Last Admin: 09/21/17 13:15 Dose: 5 mg Pantoprazole Sodium (Protonix -) 40 mg PO DAILY [facility] Last Admin: 09/21/17 09:02 Dose: 40 mg Polyethylene Glycol (Miralax (For Daily Use) -) 17 gm PO DAILY [facility] Last Admin: 09/21/17 09:03 Dose: 17 grams - Objective Vital Signs: Last Vital Signs Temp Pulse Resp BP Pulse Ox 97.3 F L 57 L 20 126/67 99 09/21/17 09:00 09/21/17 09:00 09/21/17 09:00 09/21/17 09:00 09/21/17 09:00 Intake & Output 09/18/17 09/19/17 09/20/17 09/21/17 23:59 23:59 23:59 23:59 Intake Total 2200 2475 960 925 Balance 2200 2475 960 925 HEENT: Atraumatic Neck: Supple Negative JVD Cardiovascular: S1 S2 Regular Rate and Rhythm Respiratory: Diminished Gastrointestinal: Soft Benign Ext: No Edema Labs: CBC, BMP 09/20/17 07:00 09/20/17 07:00 Assessment/Plan ASSESSMENT: 1. MRSA bacteremia suspect line sepsis post I&D of back abscess/removal of port 2. Metastatic colon carcinoma, lungs and brain post chemotherapy 3. HTN 4. Diabetes mellitus 5. Hypothyroidism 6. Anemia PLAN: 1. Continue antibiotics as per the primary team, and if MRSA bacteremia persists , would consider DIANA to exclude endocarditis, repeat blood cultures thus far negative 2. Continue Vasotec 3. Continue steroids as per the primary team Ansley Arguello MD
--- NOTE | 2017-09-21 17:06 | PN ---
Progress Note (short form) - Note Progress Note: Patient continues to feel well. Vital Signs Temperature 97.3 F L 09/21/17 09:00 Pulse Rate 57 L 09/21/17 09:00 Respiratory Rate 20 09/21/17 09:00 Blood Pressure 126/67 09/21/17 09:00 O2 Sat by Pulse Oximetry (%) 99 09/21/17 09:00 GENERAL: The patient is awake, alert, and fully oriented, in no acute distress. HEAD: Normal with no signs of trauma. EYES: PERRL, extraocular movements intact, sclera anicteric, conjunctiva clear. No ptosis. ENT: Ears normal, nares patent, oropharynx clear without exudates, moist mucous membranes. NECK: Trachea midline, full range of motion, supple. LUNGS: Breath sounds equal, clear to auscultation bilaterally, no wheezes, no crackles, no accessory muscle use. HEART: Regular rate and rhythm, S1, S2 without murmur, rub or gallop. ABDOMEN: Soft, nontender, nondistended, normoactive bowel sounds, no guarding, no rebound, no hepatosplenomegaly, no masses. EXTREMITIES: 2+ pulses, warm, well-perfused, no edema. NEUROLOGICAL: Cranial nerves II through XII grossly intact. Normal speech, gait not observed. PSYCH: Normal mood, normal affect. SKIN: Warm, dry, normal turgor, no rashes or lesions noted CBCD WBC 6.8 K/mm3 (4.0-10.0) 09/20/17 07:00 RBC 2.86 M/mm3 (3.60-5.2) L 09/20/17 07:00 Hgb 8.7 GM/dL (10.7-15.3) L 09/20/17 07:00 Hct 25.4 % (32.4-45.2) L 09/20/17 07:00 MCV 88.8 fl (80-96) 09/20/17 07:00 MCHC 34.3 g/dl (32.0-36.0) 09/20/17 07:00 RDW 18.9 % (11.6-15.6) H 09/20/17 07:00 Plt Count 165 K/MM3 (134-434) 09/20/17 07:00 MPV 7.6 fl (7.5-11.1) 09/20/17 07:00 CMP Sodium 138 mmol/L (136-145) 09/20/17 07:00 Potassium 4.3 mmol/L (3.5-5.1) 09/20/17 07:00 Chloride 103 mmol/L (98-107) 09/20/17 07:00 Carbon Dioxide 28 mmol/L (21-32) 09/20/17 07:00 Anion Gap 7 (8-16) L 09/20/17 07:00 BUN 18 mg/dL (7-18) 09/20/17 07:00 Creatinine 0.5 mg/dL (0.55-1.02) L 09/20/17 07:00 Creat Clearance w eGFR > 60 (>60) 09/17/17 06:50 Random Glucose 159 mg/dL (74-106) H 09/20/17 07:00 Calcium 7.9 mg/dL (8.5-10.1) L 09/20/17 07:00 Total Bilirubin 0.5 mg/dL (0.2-1.0) 09/17/17 06:50 AST 19 U/L (15-37) 09/17/17 06:50 ALT 44 U/L (12-78) 09/17/17 06:50 Alkaline Phosphatase 137 U/L (45-117) H 09/17/17 06:50 Total Protein 5.5 g/dl (6.4-8.2) L 09/17/17 06:50 Albumin 2.1 g/dl (3.4-5.0) L 09/17/17 06:50 CARDIAC ENZYMES Creatine Kinase 27 IU/L (26-192) 09/18/17 06:00 Current Medications Generic Name Dose Route Start Last Admin Trade Name Freq PRN Reason Stop Dose Admin Dexamethasone 2 mg 09/15/17 07:20 09/21/17 13:15 Decadron - PO 2 mg TID DIAN Administration Docusate Sodium 100 mg 09/10/17 14:43 09/19/17 11:19 Colace - PO 100 mg Q8H PRN Administration CONSTIPATION Enalapril Maleate 20 mg 09/11/17 10:00 09/21/17 09:03 Vasotec - PO 20 mg DAILY DIAN Administration IV Flush 4 ml 09/10/17 14:43 09/16/17 07:22 Triple Lumen Flush IVPUSH 4 ml PRN PRN Administration Protocol Daptomycin 750 mg/ Sodium 100 mls @ 50 mls/hr 09/10/17 17:00 09/20/17 18:00 Chloride IVPB 50 mls/hr Q24H DIAN Administration Protocol Ceftaroline Fosamil 600 mg/ 100 mls @ 100 mls/hr 09/12/17 19:00 09/21/17 09: 02 Dextrose IVPB 100 mls/hr Q8H-IV DIAN Administration Protocol Insulin Aspart 0 vial 09/21/17 16:30 Novolog Vial Sliding Scale - SQ ACHS DIAN Protocol Levetiracetam 500 mg 09/10/17 22:00 09/21/17 09:02 Keppra - PO 500 mg BID DIAN Administration Levothyroxine Sodium 150 mcg 09/11/17 07:00 09/21/17 06:16 Synthroid - PO 150 mcg DAILY@0700 DIAN Administration Lidocaine 1 patch 09/11/17 10:00 09/21/17 09:03 Lidoderm Patch - TP 1 patch DAILY DIAN Administration Miscellaneous 1 each 09/10/17 14:43 09/15/17 23:22 Duragesic Patch Waste TD 1 each PRN PRN Administration PAIN Miscellaneous 1 each 09/10/17 22:00 09/20/17 21:39 Lidoderm Patch Removal MC 1 each DAILY@2200 DIAN Administration Mupirocin 1 applic 09/10/17 22:00 09/21/17 06:19 Bactroban 2% Cream - TP 1 applic TID DIAN Administration Ondansetron HCl 4 mg 09/10/17 14:38 Zofran Injection IVPUSH Q6H PRN NAUSEA AND/OR VOMITING Oxycodone HCl 5 mg 09/20/17 21:32 09/21/17 13:15 Roxicodone - PO 5 mg Q4H PRN Administration PAIN LEVEL 1-5 Pantoprazole Sodium 40 mg 09/13/17 10:00 09/21/17 09:02 Protonix - PO 40 mg DAILY DIAN Administration Polyethylene Glycol 17 gm 09/10/17 17:23 09/21/17 09:03 Miralax (For Daily Use) - PO 17 grams DAILY DIAN Administration Home Medications Medication Instructions Recorded Enalapril Maleate [Vasotec] 20 mg PO DAILY 07/04/17 Levothyroxine [Synthroid -] 150 mcg PO DAILY 12/24/16 Simvastatin [Zocor -] 10 mg PO HS 07/22/17 Dexamethasone [Decadron -] 4 mg PO Q6H #120 tablet 07/24/17 levETIRAcetam [Keppra -] 500 mg PO BID #60 tablet 07/24/17 A/P: 61 year old F with pmh of metastatic colon cancer to lungs/brain/bone s/p chemo presented with skin lesions found to have MRSA bacteremia #MRSA bacteremia and skin lesions s/p removal of port continue daptomycin/ ceftaroline #12 continue current treatment as per ID, repeat Blood Cx is negative. #Metastatic Colon Cancer continue current therapy as per oncology MRI of tibia- - bone mets #Abdominal pain, Partial vs complete sbo. symptoms are improving #DM most likely due to steroid use ; newly diagnosed, SS with coverage #HTN continue enalapril Waiting for [facility] replacement Visit type - Emergency Visit Emergency Visit: Yes ED Registration Date: 09/07/17 Care time: The patient presented to the Emergency Department on the above date and was hospitalized for further evaluation of their emergent condition. - New Patient This patient is new to me today: No - Critical Care Critical Care patient: No - Discharge Referral Referred to [facility] Med P.C.: No
[2017-09-21] MEDS: DAPTOMYCIN 750 MG in SODIUM CHLORIDE 100 ML IVPB SCH (17:41)
[2017-09-21] MEDS: LIDOCAINE PATCH REMOVAL MC SCH (22:39)
[2017-09-22] MEDS ORDERED: PT OWN MED DRAWER 7, Y5N ONE ×2 (03:07→17:24)
[2017-09-22] MEDS: CEFTAROLINE FOSAMIL ACETATE 600 MG in DEXTROSE 5%-WATER - 100 ML IVPB SCH (03:10)
[2017-09-22] MEDS: MUPIROCIN CA 2% TOPICAL CREAM 15 GM TUBE TP SCH ×3 (06:42→21:59)
[2017-09-22] MEDS: LEVOTHYROXINE NA 150 MCG TABLET PO SCH (06:43)
[2017-09-22] MEDS: INSULIN SLIDING SCALE (NOVOLOG) 1 VIAL SQ SCH ×4 (06:43→21:59)
[2017-09-22] MEDS: DEXAMETHASONE 4 MG TABLET (FP) PO SCH ×3 (06:43→21:59)
--- NOTE | 2017-09-22 09:43 | PN ---
Progress Note (short form) - Note Progress Note: alert port removed 09/10 abdominal pain resolved Vital Signs Period Temp Pulse Resp BP Sys/[place] Pulse Ox Last 24 Hr 97.3 F-98.1 F 51-53 16-18 102-121/53-65 98 cor-rrr lungs clear abd soft,nt ext no edema skin lesions drying left CVP line CBC, BMP 09/20/17 07:00 09/20/17 07:00 Microbiology 09/18/17 18:15 Blood - Peripheral Venous Blood Culture - Preliminary NO GROWTH OBTAINED AFTER 72 HOURS, INCUBATION TO CONTINUE FOR 2 DAYS. 09/18/17 16:30 Blood - Peripheral Venous Blood Culture - Preliminary NO GROWTH OBTAINED AFTER 72 HOURS, INCUBATION TO CONTINUE FOR 2 DAYS. a/p mrsa bacteremia-port removed port infecion skin lesions- staph will require 5 more weeks of iv daptomycin will d/c ceftaroline should have weekly labs including CPK while on daptomycin SBO secondary to incisional hernia- positive bone scan left femur- MRI noted metastatic colon cancer -on decadron for brain lesion-being tapered overall prognosis is poor advanced directives continue to be discussed with family and patient Problem List - Problems (1) Bacteremia Code(s): R78.81 - BACTEREMIA (2) Skin lesions, generalized Code(s): L98.9 - DISORDER OF THE SKIN AND SUBCUTANEOUS TISSUE, UNSPECIFIED (3) Colon cancer metastasized to multiple sites Code(s): C18.9 - MALIGNANT NEOPLASM OF COLON, UNSPECIFIED
[2017-09-22] MEDS: ENALAPRIL MALEATE 10 MG TABLET (FP) PO SCH (10:18)
[2017-09-22] MEDS: oxyCODONE HCL 5 MG TABLET PO PRN ×2 (10:18→14:17)
[2017-09-22] MEDS: levETIRAcetam 500 MG TABLET (FP) PO SCH ×2 (10:18→21:59)
[2017-09-22] MEDS: PANTOPRAZOLE 40 MG TABLET (FP) PO SCH (10:18)
[2017-09-22] MEDS: LIDOCAINE 5% TOPICAL PATCH TP SCH (10:19)
--- NOTE | 2017-09-22 10:36 | PN ---
Progress Note, Physician History of Present Illness: Remains afebrile, no complaints. - Current Medication List Current Medications: Active Medications Dexamethasone (Decadron -) 2 mg PO TID [facility] Last Admin: 09/22/17 06:43 Dose: 2 mg Docusate Sodium (Colace -) 100 mg PO Q8H PRN PRN Reason: CONSTIPATION Last Admin: 09/19/17 11:19 Dose: 100 mg Enalapril Maleate (Vasotec -) 20 mg PO DAILY [facility] Last Admin: 09/22/17 10:18 Dose: 20 mg IV Flush (Triple Lumen Flush) 4 ml IVPUSH PRN PRN PRN Reason: Protocol Last Admin: 09/16/17 07:22 Dose: 4 ml Daptomycin 750 mg/ Sodium (Chloride) 100 mls @ 50 mls/hr IVPB Q24H [facility] PRN Reason: Protocol Last Admin: 09/21/17 17:41 Dose: 50 mls/hr Insulin Aspart (Novolog Vial Sliding Scale -) 0 vial SQ ACHS [facility] PRN Reason: Protocol Last Admin: 09/22/17 06:43 Dose: Not Given Levetiracetam (Keppra -) 500 mg PO BID [facility] Last Admin: 09/22/17 10:18 Dose: 500 mg Levothyroxine Sodium (Synthroid -) 150 mcg PO DAILY@0700 [facility] Last Admin: 09/22/17 06:43 Dose: 150 mcg Lidocaine (Lidoderm Patch -) 1 patch TP DAILY [facility] Last Admin: 09/22/17 10:19 Dose: 1 patch Miscellaneous (Duragesic Patch Waste) 1 each TD PRN PRN PRN Reason: PAIN Last Admin: 09/15/17 23:22 Dose: 1 each Miscellaneous (Lidoderm Patch Removal) 1 each MC DAILY@2200 [facility] Last Admin: 09/21/17 22:39 Dose: 1 each Mupirocin (Bactroban 2% Cream -) 1 applic TP TID [facility] Last Admin: 09/22/17 06:42 Dose: 1 applic Ondansetron HCl (Zofran Injection) 4 mg IVPUSH Q6H PRN PRN Reason: NAUSEA AND/OR VOMITING Oxycodone HCl (Roxicodone -) 5 mg PO Q4H PRN PRN Reason: PAIN LEVEL 1-5 Last Admin: 09/22/17 10:18 Dose: 5 mg Pantoprazole Sodium (Protonix -) 40 mg PO DAILY [facility] Last Admin: 09/22/17 10:18 Dose: 40 mg Polyethylene Glycol (Miralax (For Daily Use) -) 17 gm PO DAILY [facility] Last Admin: 09/21/17 09:03 Dose: 17 grams - Objective Vital Signs: Vital Signs Temperature 98.1 F 09/22/17 06:00 Pulse Rate 52 L 09/22/17 06:00 Respiratory Rate 16 09/22/17 06:00 Blood Pressure 121/65 09/22/17 06:00 O2 Sat by Pulse Oximetry (%) 98 09/21/17 21:00 Constitutional: Yes: No Distress, Calm Neck: Yes: Supple Cardiovascular: Yes: Regular Rate and Rhythm Respiratory: Yes: Regular, Diminished Gastrointestinal: Yes: Normal Bowel Sounds, Soft, Abdomen, Obese Edema: No Labs: CBC, BMP 09/20/17 07:00 09/20/17 07:00 INR, PTT INR 1.07 (0.82-1.09) 09/07/17 17:38 Problem List - Problems (1) MRSA bacteremia Code(s): R78.81 - BACTEREMIA (2) Colon cancer metastasized to multiple sites Code(s): C18.9 - MALIGNANT NEOPLASM OF COLON, UNSPECIFIED (3) Brain metastases Code(s): C79.31 - SECONDARY MALIGNANT NEOPLASM OF BRAIN (4) Hypothyroidism Code(s): E03.9 - HYPOTHYROIDISM, UNSPECIFIED Qualifiers: Hypothyroidism type: unspecified Qualified Code(s): E03.9 - Hypothyroidism , unspecified (5) Hypertension Code(s): I10 - ESSENTIAL (PRIMARY) HYPERTENSION Qualifiers: Hypertension type: essential hypertension Qualified Code(s): I10 - Essential (primary) hypertension (6) Pyogenic skin abscess due to bacteria Code(s): L02.91 - CUTANEOUS ABSCESS, UNSPECIFIED; B96.89 - OTH BACTERIAL AGENTS THE CAUSE OF DISEASES CLASSD [id number] Assessment/Plan 1. MRSA bacteremia suspect line sepsis post I&D of back abscess/removal of port since cleared 2. Metastatic colon carcinoma, lungs and brain post chemotherapy 3. HTN 4. Diabetes mellitus 5. Hypothyroidism 6. Anemia PLAN: 1. Continue Daptomycin course as per ID, defer DIANA to exclude endocarditis as repeat blood cultures thus far negative 2. Continue Vasotec 20 qd 3. Continue steroids with GI protection as per the primary team
[2017-09-22] MEDS: POLYETHYLENE GLYCOL 3350 119 GM BTL PO SCH (14:17)
--- NOTE | 2017-09-22 15:31 | PN ---
<Burke Vuong - Last Filed: 09/22/17 15:42> Physical Exam: SUBJECTIVE: Patient seen and examined No acute events overnight. No complaints this morning OBJECTIVE: Vital Signs Period Temp Pulse Resp BP Sys/[place] Pulse Ox Last 24 Hr 97.3 F-98.1 F 51-58 16-18 100-121/53-65 98-98 GENERAL: Awake, alert, and fully oriented. No acute distress. HEAD: +scattered bleeding, excorciated lesions on face with 1 on left forehead EYES: Pupils equal, round and reactive to light, extraocular movements intact, sclera anicteric, conjunctiva clear. EARS, NOSE, THROAT: Oropharynx clear without exudates. Moist mucous membranes. NECK: Normal range of motion, supple, L TLC LUNGS: Breath sounds equal, clear to auscultation bilaterally. No wheezes, and no crackles. No accessory muscle use. HEART: Regular rate and rhythm, normal S1 and S2 without murmur, rub or gallop. ABDOMEN: Soft, obese, Diffuse tenderness, +mildly distended, normoactive bowel sounds, no guarding, no rebound, no masses. MUSCULOSKELETAL: +TTP R shoulder with limited active and passive ROM LOWER EXTREMITIES: 2+ posterior tibial pulses, warm, well-perfused. +LLE calf tenderness NEUROLOGICAL: Cranial nerves II-XII intact. Right arm extension 4/5. Shoulder abduction 4/5. 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 Decreased ROM of right shoulder. SKIN: +scattered ulcerative nodules throughout body (face, arms, back, legs) with few purulent draining furuncles. No new lesions Laboratory Results - last 24 hr 09/21/17 09/21/17 09/22/17 17:05 22:29 11:35 POC Glucometer 138 160 136 Active Medications Generic Name Dose Route Start Last Admin Trade Name Freq PRN Reason Stop Dose Admin Dexamethasone 2 mg 09/15/17 07:20 09/22/17 14:17 Decadron - PO 2 mg TID DIAN Administration Docusate Sodium 100 mg 09/10/17 14:43 09/19/17 11:19 Colace - PO 100 mg Q8H PRN Administration CONSTIPATION Enalapril Maleate 20 mg 09/11/17 10:00 09/22/17 10:18 Vasotec - PO 20 mg DAILY DIAN Administration IV Flush 4 ml 09/10/17 14:43 09/16/17 07:22 Triple Lumen Flush IVPUSH 4 ml PRN PRN Administration Protocol Daptomycin 750 mg/ Sodium 100 mls @ 50 mls/hr 09/10/17 17:00 09/21/17 17:41 Chloride IVPB 50 mls/hr Q24H DIAN Administration Protocol Insulin Aspart 0 vial 09/21/17 16:30 09/22/17 11:36 Novolog Vial Sliding Scale - SQ Not Given ACHS DIAN Protocol Levetiracetam 500 mg 09/10/17 22:00 09/22/17 10:18 Keppra - PO 500 mg BID DIAN Administration Levothyroxine Sodium 150 mcg 09/11/17 07:00 09/22/17 06:43 Synthroid - PO 150 mcg DAILY@0700 DIAN Administration Lidocaine 1 patch 09/11/17 10:00 09/22/17 10:19 Lidoderm Patch - TP 1 patch DAILY DIAN Administration Miscellaneous 1 each 09/10/17 14:43 09/15/17 23:22 Duragesic Patch Waste TD 1 each PRN PRN Administration PAIN Miscellaneous 1 each 09/10/17 22:00 09/21/17 22:39 Lidoderm Patch Removal MC 1 each DAILY@2200 DIAN Administration Mupirocin 1 applic 09/10/17 22:00 09/22/17 14:17 Bactroban 2% Cream - TP 1 applic TID DIAN Administration Ondansetron HCl 4 mg 09/10/17 14:38 Zofran Injection IVPUSH Q6H PRN NAUSEA AND/OR VOMITING Oxycodone HCl 5 mg 09/20/17 21:32 09/22/17 14:17 Roxicodone - PO 5 mg Q4H PRN Administration PAIN LEVEL 1-5 Pantoprazole Sodium 40 mg 09/13/17 10:00 09/22/17 10:18 Protonix - PO 40 mg DAILY DIAN Administration Polyethylene Glycol 17 gm 09/10/17 17:23 09/22/17 14:17 Miralax (For Daily Use) - PO 17 grams DAILY DIAN Administration ASSESSMENT/PLAN: 61 year old F with pmh of 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 last bcx drawn 09/18 -Continue Daptomycin 750 mg q24h day 13 . Will need residential abx per ID -ID on board #Metastatic Colon Cancer -Decadron 2mg TID -Pain control with fentanyl, oxycodone, and lidocaine patch -MRI of tibia-- bone mets #Abdominal pain, Partial vs complete sbo,, improved -Lactic acid normal -Surgery consulted, Dr. Cohen -Will not proceed with surgical intervention #DM, newly diagnosed -ISS q6h -D/c levemir #HTN -Continue enalapril #FEN/GI -no ivf -wnl -Full liquid diet #PPx -Scds -Protonix Overall prognosis is quite poor. Patient awaiting placement at [facility] Visit type - Emergency Visit Emergency Visit: Yes ED Registration Date: 09/07/17 Care time: The patient presented to the Emergency Department on the above date and was hospitalized for further evaluation of their emergent condition. - New Patient This patient is new to me today: No - Critical Care Critical Care patient: No <Fredis Jacome - Last Filed: 09/22/17 17:07> Physical Exam: DIScussed with ID, patient needs to be on Daptomycin for 5 weeks. Waiting for TRANSFER TO [facility]. Vital Signs Temperature 97.9 F 09/22/17 13:32 Pulse Rate 56 L 09/22/17 13:32 Respiratory Rate 18 09/22/17 13:32 Blood Pressure 100/55 09/22/17 13:32 O2 Sat by Pulse Oximetry (%) 98 09/22/17 09:00 CBCD WBC 6.8 K/mm3 (4.0-10.0) 09/20/17 07:00 RBC 2.86 M/mm3 (3.60-5.2) L 09/20/17 07:00 Hgb 8.7 GM/dL (10.7-15.3) L 09/20/17 07:00 Hct 25.4 % (32.4-45.2) L 09/20/17 07:00 MCV 88.8 fl (80-96) 09/20/17 07:00 MCHC 34.3 g/dl (32.0-36.0) 09/20/17 07:00 RDW 18.9 % (11.6-15.6) H 09/20/17 07:00 Plt Count 165 K/MM3 (134-434) 09/20/17 07:00 MPV 7.6 fl (7.5-11.1) 09/20/17 07:00 CMP Sodium 138 mmol/L (136-145) 09/20/17 07:00 Potassium 4.3 mmol/L (3.5-5.1) 09/20/17 07:00 Chloride 103 mmol/L (98-107) 09/20/17 07:00 Carbon Dioxide 28 mmol/L (21-32) 09/20/17 07:00 Anion Gap 7 (8-16) L 09/20/17 07:00 BUN 18 mg/dL (7-18) 09/20/17 07:00 Creatinine 0.5 mg/dL (0.55-1.02) L 09/20/17 07:00 Creat Clearance w eGFR > 60 (>60) 09/17/17 06:50 Random Glucose 159 mg/dL (74-106) H 09/20/17 07:00 Calcium 7.9 mg/dL (8.5-10.1) L 09/20/17 07:00 Total Bilirubin 0.5 mg/dL (0.2-1.0) 09/17/17 06:50 AST 19 U/L (15-37) 09/17/17 06:50 ALT 44 U/L (12-78) 09/17/17 06:50 Alkaline Phosphatase 137 U/L (45-117) H 09/17/17 06:50 Total Protein 5.5 g/dl (6.4-8.2) L 09/17/17 06:50 Albumin 2.1 g/dl (3.4-5.0) L 09/17/17 06:50 CARDIAC ENZYMES Creatine Kinase 27 IU/L (26-192) 09/18/17 06:00 Current Medications Generic Name Dose Route Start Last Admin Trade Name Freq PRN Reason Stop Dose Admin Dexamethasone 2 mg 09/15/17 07:20 09/22/17 14:17 Decadron - PO 2 mg TID DIAN Administration Docusate Sodium 100 mg 09/10/17 14:43 09/19/17 11:19 Colace - PO 100 mg Q8H PRN Administration CONSTIPATION Enalapril Maleate 20 mg 09/11/17 10:00 09/22/17 10:18 Vasotec - PO 20 mg DAILY DIAN Administration IV Flush 4 ml 09/10/17 14:43 09/16/17 07:22 Triple Lumen Flush IVPUSH 4 ml PRN PRN Administration Protocol Daptomycin 750 mg/ Sodium 100 mls @ 50 mls/hr 09/10/17 17:00 09/21/17 17:41 Chloride IVPB 50 mls/hr Q24H DIAN Administration Protocol Insulin Aspart 0 vial 09/21/17 16:30 09/22/17 11:36 Novolog Vial Sliding Scale - SQ Not Given ACHS DIAN Protocol Levetiracetam 500 mg 09/10/17 22:00 09/22/17 10:18 Keppra - PO 500 mg BID DIAN Administration Levothyroxine Sodium 150 mcg 09/11/17 07:00 09/22/17 06:43 Synthroid - PO 150 mcg DAILY@0700 DIAN Administration Lidocaine 1 patch 09/11/17 10:00 09/22/17 10:19 Lidoderm Patch - TP 1 patch DAILY DIAN Administration Miscellaneous 1 each 09/10/17 14:43 09/15/17 23:22 Duragesic Patch Waste TD 1 each PRN PRN Administration PAIN Miscellaneous 1 each 09/10/17 22:00 09/21/17 22:39 Lidoderm Patch Removal MC 1 each DAILY@2200 DIAN Administration Mupirocin 1 applic 09/10/17 22:00 09/22/17 14:17 Bactroban 2% Cream - TP 1 applic TID DIAN Administration Ondansetron HCl 4 mg 09/10/17 14:38 Zofran Injection IVPUSH Q6H PRN NAUSEA AND/OR VOMITING Oxycodone HCl 5 mg 09/20/17 21:32 09/22/17 14:17 Roxicodone - PO 5 mg Q4H PRN Administration PAIN LEVEL 1-5 Pantoprazole Sodium 40 mg 09/13/17 10:00 09/22/17 10:18 Protonix - PO 40 mg DAILY DINA Administration Polyethylene Glycol 17 gm 09/10/17 17:23 09/22/17 14:17 Miralax (For Daily Use) - PO 17 grams DAILY DIAN Administration Home Medications Medication Instructions Recorded RX: Enalapril Maleate [Vasotec] 20 mg PO DAILY 12/24/16 RX: Levothyroxine [Synthroid -] 150 mcg PO DAILY 12/24/16 RX: Simvastatin [Zocor -] 10 mg PO HS 07/22/17 RX: Dexamethasone [Decadron -] 4 mg PO Q6H #120 tablet 07/24/17 RX: levETIRAcetam [Keppra -] 500 mg PO BID #60 tablet 07/24/17
--- NOTE | 2017-09-22 16:42 | PN ---
Progress Note (short form) - Note Progress Note: Patient seen and examined Feels better Last Vital Signs Temp Pulse Resp BP Pulse Ox 97.9 F 56 L 18 100/55 98 09/22/17 13:32 09/22/17 13:32 09/22/17 13:32 09/22/17 13:32 09/22/17 09:00 Cor: RSR, No murmurs, No gallops Lungs: Clear to P&A Abd: Soft, Normal bowel sounds, No organomegaly Ext:No significant edema LAbs/MEds reviewed A/P 61 year old female with metastatic colon cancer brain mets on steroid taper staph skin and port infection On ceftaroline/daptomycin continue current management
[2017-09-22] MEDS ORDERED: INSULIN (NOVOLOG) ASPART 100 UNITS/ML 10ML VIAL ONE (17:29)
--- NOTE | 2017-09-22 18:10 | PN ---
Progress Note (short form) - Note Progress Note: Pt seen and examined. She states her right shoulder is feeling better. She has better ROM with less pain. Overall, definitely improved. Consider P.T. NTD from an ortho pov Can DC/transfer from an ortho POV
[2017-09-22] MEDS: DAPTOMYCIN 750 MG in SODIUM CHLORIDE 100 ML IVPB SCH (20:01)
[2017-09-22] MEDS: LIDOCAINE PATCH REMOVAL MC SCH (21:59)
[2017-09-23] MEDS: INSULIN SLIDING SCALE (NOVOLOG) 1 VIAL SQ SCH ×4 (07:09→23:06)
[2017-09-23] MEDS: MUPIROCIN CA 2% TOPICAL CREAM 15 GM TUBE TP SCH ×3 (07:09→23:06)
[2017-09-23] MEDS: DEXAMETHASONE 4 MG TABLET (FP) PO SCH ×3 (07:09→23:05)
[2017-09-23] MEDS: LEVOTHYROXINE NA 150 MCG TABLET PO SCH (07:10)
[2017-09-23] MEDS ORDERED: levETIRAcetam 500 MG TABLET (FP) PO SCH (08:40)
--- NOTE | 2017-09-23 08:40 | PN ---
Progress Note, Physician Chief Complaint: Events noted Not in distress History of Present Illness: Patient was seen and examined. Awake and alert. Chart was reviewed Denies chest pain, SOB or palpitations No events last night - Current Medication List Current Medications: Active Medications Dexamethasone (Decadron -) 2 mg PO TID [facility] Last Admin: 09/23/17 07:09 Dose: 2 mg Docusate Sodium (Colace -) 100 mg PO Q8H PRN PRN Reason: CONSTIPATION Last Admin: 09/19/17 11:19 Dose: 100 mg Enalapril Maleate (Vasotec -) 20 mg PO DAILY [facility] Last Admin: 09/22/17 10:18 Dose: 20 mg IV Flush (Triple Lumen Flush) 4 ml IVPUSH PRN PRN PRN Reason: Protocol Last Admin: 09/16/17 07:22 Dose: 4 ml Daptomycin 750 mg/ Sodium (Chloride) 100 mls @ 50 mls/hr IVPB Q24H [facility] PRN Reason: Protocol Last Admin: 09/22/17 20:01 Dose: 50 mls/hr Insulin Aspart (Novolog Vial Sliding Scale -) 0 vial SQ ACHS [facility] PRN Reason: Protocol Last Admin: 09/23/17 07:09 Dose: Not Given Levetiracetam (Keppra -) 500 mg PO BID [facility] Last Admin: 09/22/17 21:59 Dose: 500 mg Levothyroxine Sodium (Synthroid -) 150 mcg PO DAILY@0700 [facility] Last Admin: 09/23/17 07:10 Dose: 150 mcg Lidocaine (Lidoderm Patch -) 1 patch TP DAILY [facility] Last Admin: 09/22/17 10:19 Dose: 1 patch Miscellaneous (Duragesic Patch Waste) 1 each TD PRN PRN PRN Reason: PAIN Last Admin: 09/15/17 23:22 Dose: 1 each Miscellaneous (Lidoderm Patch Removal) 1 each MC DAILY@2200 [facility] Last Admin: 09/22/17 21:59 Dose: 1 each Mupirocin (Bactroban 2% Cream -) 1 applic TP TID [facility] Last Admin: 09/23/17 07:09 Dose: 1 applic Ondansetron HCl (Zofran Injection) 4 mg IVPUSH Q6H PRN PRN Reason: NAUSEA AND/OR VOMITING Oxycodone HCl (Roxicodone -) 5 mg PO Q4H PRN PRN Reason: PAIN LEVEL 1-5 Last Admin: 09/22/17 14:17 Dose: 5 mg Pantoprazole Sodium (Protonix -) 40 mg PO DAILY [facility] Last Admin: 09/22/17 10:18 Dose: 40 mg Polyethylene Glycol (Miralax (For Daily Use) -) 17 gm PO DAILY [facility] Last Admin: 09/22/17 14:17 Dose: 17 grams - Objective Vital Signs: Vital Signs Temperature 98.2 F 09/23/17 06:00 Pulse Rate 54 L 09/23/17 06:00 Respiratory Rate 09/23/17 06:00 Blood Pressure 104/56 09/23/17 06:00 O2 Sat by Pulse Oximetry (%) 96 09/22/17 21:00 HENT: Yes: Atraumatic Neck: Yes: Supple Cardiovascular: Yes: Regular Rate and Rhythm, S1, S2 Respiratory: Yes: CTA Bilaterally Gastrointestinal: Yes: Normal Bowel Sounds, Soft. No: Tenderness Edema: No Problem List - Problems (1) Bacteremia Code(s): R78.81 - BACTEREMIA (2) Colon cancer metastasized to multiple sites Code(s): C18.9 - MALIGNANT NEOPLASM OF COLON, UNSPECIFIED (3) Hypertension Code(s): I10 - ESSENTIAL (PRIMARY) HYPERTENSION Qualifiers: Hypertension type: essential hypertension Qualified Code(s): I10 - Essential (primary) hypertension (4) Hypothyroidism Code(s): E03.9 - HYPOTHYROIDISM, UNSPECIFIED Qualifiers: Hypothyroidism type: unspecified Qualified Code(s): E03.9 - Hypothyroidism , unspecified (5) Seizure Code(s): R56.9 - UNSPECIFIED CONVULSIONS Assessment/Plan 1. MRSA bacteremia 2. Furuncles s/p I & D 3. Metastatic colon cancer to lungs and brain post chemotherapy 4. Type 2 diabetes mellitus 5- HTN 6. Hypothyroidism PLAN: 1. Continue Vasotec. Continue steroids with GI protection and seizure prophylaxis 2. DVT prophylaxis 3. No need for further cardiac testing. Continue supportive care. Overall poor prognosis Alex Lin MD
--- NOTE | 2017-09-23 09:11 | PN ---
<Burke Vuong - Last Filed: 09/23/17 10:48> Physical Exam: SUBJECTIVE: Patient seen and examined No acute events overnight. No complaints this morning. States her jaw has been twitching infrequently OBJECTIVE: Vital Signs Period Temp Pulse Resp BP Sys/[place] Pulse Ox Last 24 Hr 97.7 F-98.2 F 53-58 18-18 91-116/55-64 96 GENERAL: Awake, alert, and fully oriented. No acute distress. HEAD: +scattered bleeding, excorciated lesions on face with 1 on left forehead EYES: Pupils equal, round and reactive to light, extraocular movements intact, sclera anicteric, conjunctiva clear. EARS, NOSE, THROAT: Oropharynx clear without exudates. Moist mucous membranes. NECK: Normal range of motion, supple, L TLC LUNGS: Breath sounds equal, clear to auscultation bilaterally. No wheezes, and no crackles. No accessory muscle use. HEART: Regular rate and rhythm, normal S1 and S2 without murmur, rub or gallop. ABDOMEN: Soft, obese, Diffuse tenderness, +mildly distended, normoactive bowel sounds, no guarding, no rebound, no masses. MUSCULOSKELETAL: +TTP R shoulder with limited active and passive ROM LOWER EXTREMITIES: 2+ posterior tibial pulses, warm, well-perfused. +LLE calf tenderness NEUROLOGICAL: Cranial nerves II-XII intact. Right arm extension 4/5. Shoulder abduction 4/5. 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 Decreased ROM of right shoulder. SKIN: +scattered ulcerative nodules throughout body (face, arms, back, legs) with few purulent draining furuncles. No new lesions Laboratory Results - last 24 hr 09/22/17 09/22/17 09/22/17 06:41 11:35 16:58 POC Glucometer 118 136 119 09/22/17 09/23/17 21:55 07:08 POC Glucometer 187 107 Active Medications Generic Name Dose Route Start Last Admin Trade Name Freq PRN Reason Stop Dose Admin Dexamethasone 2 mg 09/15/17 07:20 09/23/17 07:09 Decadron - PO 2 mg TID DIAN Administration Docusate Sodium 100 mg 09/10/17 14:43 09/19/17 11:19 Colace - PO 100 mg Q8H PRN Administration CONSTIPATION Enalapril Maleate 20 mg 09/11/17 10:00 09/22/17 10:18 Vasotec - PO 20 mg DAILY DIAN Administration IV Flush 4 ml 09/10/17 14:43 09/16/17 07:22 Triple Lumen Flush IVPUSH 4 ml PRN PRN Administration Protocol Daptomycin 750 mg/ Sodium 100 mls @ 50 mls/hr 09/10/17 17:00 09/22/17 20:01 Chloride IVPB 50 mls/hr Q24H DIAN Administration Protocol Insulin Aspart 0 vial 09/21/17 16:30 09/23/17 07:09 Novolog Vial Sliding Scale - SQ Not Given ACHS DIAN Protocol Levetiracetam 500 mg/ 750 mg 09/23/17 10:00 Levetiracetam 250 mg PO BID DIAN Levothyroxine Sodium 150 mcg 09/11/17 07:00 09/23/17 07:10 Synthroid - PO 150 mcg DAILY@0700 [facility] Administration Lidocaine 1 patch 09/11/17 10:00 09/22/17 10:19 Lidoderm Patch - TP 1 patch DAILY [facility] Administration Miscellaneous 1 each 09/10/17 14:43 09/15/17 23:22 Duragesic Patch Waste TD 1 each PRN PRN Administration PAIN Miscellaneous 1 each 09/10/17 22:00 09/22/17 21:59 Lidoderm Patch Removal MC 1 each DAILY@2200 [facility] Administration Mupirocin 1 applic 09/10/17 22:00 09/23/17 07:09 Bactroban 2% Cream - TP 1 applic TID DIAN Administration Ondansetron HCl 4 mg 09/10/17 14:38 Zofran Injection IVPUSH Q6H PRN NAUSEA AND/OR VOMITING Oxycodone HCl 5 mg 09/20/17 21:32 09/22/17 14:17 Roxicodone - PO 5 mg Q4H PRN Administration PAIN LEVEL 1-5 Pantoprazole Sodium 40 mg 09/13/17 10:00 09/22/17 10:18 Protonix - PO 40 mg DAILY [facility] Administration Polyethylene Glycol 17 gm 09/10/17 17:23 09/22/17 14:17 Miralax (For Daily Use) - PO 17 grams DAILY [facility] Administration ASSESSMENT/PLAN: 61 year old F with pmh of 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 last bcx drawn 09/18 -Continue Daptomycin 750 mg q24h day 14 . 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 Cohen -Will not proceed with surgical intervention #DM, newly diagnosed -ISS q6h -D/c levemir #HTN -Continue enalapril #FEN/GI -no ivf -wnl -Full liquid diet #PPx -Scds -Protonix Overall prognosis is quite poor. Patient awaiting placement at [facility] <Fredis Jacome - Last Filed: 09/23/17 13:10> Physical Exam: Patient is comfortable with no acute distress. Stated that she is having head shaking for less than 3 secs at times that she didn't have them before. Otherwise she is comfortable with no fever or chills, no shortness of breath. Patient is japanese speaking translated by the resident who speaks japanese Vital Signs Temperature 98.2 F 09/23/17 06:00 Pulse Rate 54 L 09/23/17 06:00 Respiratory Rate 18 09/23/17 06:00 Blood Pressure 104/56 09/23/17 06:00 O2 Sat by Pulse Oximetry (%) 96 09/22/17 21:00 PE:Cushinoid picture Positive left IJ line site is clean Heart:S1S2 positve Chest:Clear abdomen: ND, NT, positive for BS EXt: Non pitting edema, pulses are positive. CBCD WBC 6.8 K/mm3 (4.0-10.0) 09/20/17 07:00 RBC 2.86 M/mm3 (3.60-5.2) L 09/20/17 07:00 Hgb 8.7 GM/dL (10.7-15.3) L 09/20/17 07:00 Hct 25.4 % (32.4-45.2) L 09/20/17 07:00 MCV 88.8 fl (80-96) 09/20/17 07:00 MCHC 34.3 g/dl (32.0-36.0) 09/20/17 07:00 RDW 18.9 % (11.6-15.6) H 09/20/17 07:00 Plt Count 165 K/MM3 (134-434) 09/20/17 07:00 MPV 7.6 fl (7.5-11.1) 09/20/17 07:00 CMP Sodium 138 mmol/L (136-145) 09/20/17 07:00 Potassium 4.3 mmol/L (3.5-5.1) 09/20/17 07:00 Chloride 103 mmol/L (98-107) 09/20/17 07:00 Carbon Dioxide 28 mmol/L (21-32) 09/20/17 07:00 Anion Gap 7 (8-16) L 09/20/17 07:00 BUN 18 mg/dL (7-18) 09/20/17 07:00 Creatinine 0.5 mg/dL (0.55-1.02) L 09/20/17 07:00 Creat Clearance w eGFR > 60 (>60) 09/17/17 06:50 Random Glucose 159 mg/dL (74-106) H 09/20/17 07:00 Calcium 7.9 mg/dL (8.5-10.1) L 09/20/17 07:00 Total Bilirubin 0.5 mg/dL (0.2-1.0) 09/17/17 06:50 AST 19 U/L (15-37) 09/17/17 06:50 ALT 44 U/L (12-78) 09/17/17 06:50 Alkaline Phosphatase 137 U/L (45-117) H 09/17/17 06:50 Total Protein 5.5 g/dl (6.4-8.2) L 09/17/17 06:50 Albumin 2.1 g/dl (3.4-5.0) L 09/17/17 06:50 CARDIAC ENZYMES Creatine Kinase 27 IU/L (26-192) 09/18/17 06:00 Current Medications Generic Name Dose Route Start Last Admin Trade Name Freq PRN Reason Stop Dose Admin Dexamethasone 2 mg 09/15/17 07:20 09/23/17 07:09 Decadron - PO 2 mg TID DIAN Administration Docusate Sodium 100 mg 09/10/17 14:43 09/19/17 11:19 Colace - PO 100 mg Q8H PRN Administration CONSTIPATION Enalapril Maleate 20 mg 09/11/17 10:00 09/23/17 09:30 Vasotec - PO Not Given DAILY [facility]AN IV Flush 4 ml 09/10/17 14:43 09/16/17 07:22 Triple Lumen Flush IVPUSH 4 ml PRN PRN Administration Protocol Daptomycin 750 mg/ Sodium 100 mls @ 50 mls/hr 09/10/17 17:00 09/22/17 20:01 Chloride IVPB 50 mls/hr Q24H DIAN Administration Protocol Insulin Aspart 0 vial 09/21/17 16:30 09/23/17 12:06 Novolog Vial Sliding Scale - SQ Not Given ACHS [facility] Protocol Levetiracetam 500 mg/ 750 mg 09/23/17 10:00 09/23/17 10:20 Levetiracetam 250 mg PO 750 mg BID DIAN Administration Levothyroxine Sodium 150 mcg 09/11/17 07:00 09/23/17 07:10 Synthroid - PO 150 mcg DAILY@0700 [facility] Administration Lidocaine 1 patch 09/11/17 10:00 09/23/17 09:19 Lidoderm Patch - TP 1 patch DAILY [facility] Administration Miscellaneous 1 each 09/10/17 14:43 09/15/17 23:22 Duragesic Patch Waste TD 1 each PRN PRN Administration PAIN Miscellaneous 1 each 09/10/17 22:00 09/22/17 21:59 Lidoderm Patch Removal MC 1 each DAILY@2200 [facility] Administration Mupirocin 1 applic 09/10/17 22:00 09/23/17 07:09 Bactroban 2% Cream - TP 1 applic TID [facility]AN Administration Ondansetron HCl 4 mg 09/10/17 14:38 Zofran Injection IVPUSH Q6H PRN NAUSEA AND/OR VOMITING Oxycodone HCl 5 mg 09/20/17 21:32 09/23/17 09:18 Roxicodone - PO 5 mg Q4H PRN Administration PAIN LEVEL 1-5 Pantoprazole Sodium 40 mg 09/13/17 10:00 09/23/17 09:19 Protonix - PO 40 mg DAILY [facility] Administration Polyethylene Glycol 17 gm 09/10/17 17:23 09/23/17 10:20 Miralax (For Daily Use) - PO 17 grams DAILY [facility] Administration Home Medications Medication Instructions Recorded Enalapril Maleate [Vasotec] 20 mg PO DAILY 12/24/16 Levothyroxine [Synthroid -] 150 mcg PO DAILY 12/24/16 Simvastatin [Zocor -] 10 mg PO HS 07/22/17 Dexamethasone [Decadron -] 4 mg PO Q6H #120 tablet 07/24/17 levETIRAcetam [Keppra -] 500 mg PO BID #60 tablet 07/24/17 A/P: 61 year old F with pmh of metastatic colon cancer to lungs/brain/bone s/p chemo presented with skin lesions found to have MRSA bacteremia #MRSA bacteremia on Daptomycin day # s/p ceftaroline as per ID, repeat Blood Cx is negative. Waiting for authorization to go to [facility]. #Siezure Prophylaxis on Keppra will increase from 500mg to 750mg bid since patient is having seizure like activity lasting for 3 seconds, #Metastatic Colon Cancer continue current therapy as per oncology MRI of tibia- - bone mets #Abdominal pain, Partial vs complete sbo. improved, patient is tolerating diet. #DM most likely due to steroid use with cushinoid picture ; newly diagnosed, SS with coverage #HTN continue enalapril # Hx of Hypothyroidism continue Levoxyl 150mcg daily # Costipation continue Miralax Waiting for [facility] replacement Visit type - Emergency Visit Emergency Visit: Yes ED Registration Date: 09/07/17 Care time: The patient presented to the Emergency Department on the above date and was hospitalized for further evaluation of their emergent condition. - New Patient This patient is new to me today: No - Critical Care Critical Care patient: No
[2017-09-23] MEDS ORDERED: PT OWN MED DRAWER 7, Y5N ONE ×2 (09:14→21:12)
[2017-09-23] MEDS: oxyCODONE HCL 5 MG TABLET PO PRN ×3 (09:18→23:10)
[2017-09-23] MEDS: LIDOCAINE 5% TOPICAL PATCH TP SCH (09:19)
[2017-09-23] MEDS: PANTOPRAZOLE 40 MG TABLET (FP) PO SCH (09:19)
[2017-09-23] MEDS: ENALAPRIL MALEATE 10 MG TABLET (FP) PO SCH (09:30)
[2017-09-23] MEDS: POLYETHYLENE GLYCOL 3350 119 GM BTL PO SCH (10:20)
--- NOTE | 2017-09-23 11:16 | PN ---
Progress Note (short form) - Note Progress Note: alert port removed 09/10 abdominal pain resolved tolerating diet no complaints Vital Signs Period Temp Pulse Resp BP Sys/[place] Pulse Ox Last 24 Hr 97.7 F-98.2 F 53-56 18-18 91-107/55-64 96 cor-rrr llungs clear abd soft,nt skin lesions drying left CVP line CBC, BMP 09/20/17 07:00 09/20/17 07:00 Microbiology 09/18/17 18:15 Blood Culture - Preliminary Blood - Peripheral Venous NO GROWTH OBTAINED AFTER 96 HOURS, INCUBATION TO CONTINUE FOR 1 DAYS. 09/18/17 16:30 Blood Culture - Preliminary Blood - Peripheral Venous NO GROWTH OBTAINED AFTER 96 HOURS, INCUBATION TO CONTINUE FOR 1 DAYS. a/p mrsa bacteremia-port removed port infecion skin lesions- staph will require 5 more weeks of iv daptomycin should have weekly labs including CPK while on daptomycin SBO secondary to incisional hernia- positive bone scan left femur- MRI noted metastatic colon cancer -on decadron for brain lesion-being tapered overall prognosis is poor advanced directives continue to be discussed with family and patient please call back if needed Problem List - Problems (1) Bacteremia Code(s): R78.81 - BACTEREMIA (2) Skin lesions, generalized Code(s): L98.9 - DISORDER OF THE SKIN AND SUBCUTANEOUS TISSUE, UNSPECIFIED (3) Colon cancer metastasized to multiple sites Code(s): C18.9 - MALIGNANT NEOPLASM OF COLON, UNSPECIFIED
[2017-09-23] MEDS: DAPTOMYCIN 750 MG in SODIUM CHLORIDE 100 ML IVPB SCH (16:51)
--- NOTE | 2017-09-23 18:01 | PN ---
Progress Note (short form) - Note Progress Note: Patient seen and examined Continues on IV antibiotics . Will need 5 additional weeks. Taking in some p.o. Last Vital Signs Temp Pulse Resp BP Pulse Ox 97.8 F 62 18 124/68 96 09/23/17 17:55 09/23/17 17:55 09/23/17 17:55 09/23/17 17:55 09/23/17 09:00 No thrush, Lungs with diminished breath sounds bilaterally Cor -RSR Abd- soft , B.S. present Ext- no significant edema CBC, BMP 09/20/17 07:00 09/20/17 07:00 Current Medications Generic Name Dose Route Start Last Admin Trade Name Freq PRN Reason Stop Dose Admin Dexamethasone 2 mg 09/15/17 07:20 09/23/17 13:53 Decadron - PO 2 mg TID DIAN Administration Docusate Sodium 100 mg 09/10/17 14:43 09/19/17 11:19 Colace - PO 100 mg Q8H PRN Administration CONSTIPATION Enalapril Maleate 20 mg 09/11/17 10:00 09/23/17 09:30 Vasotec - PO Not Given DAILY DIAN IV Flush 4 ml 09/10/17 14:43 09/16/17 07:22 Triple Lumen Flush IVPUSH 4 ml PRN PRN Administration Protocol Daptomycin 750 mg/ Sodium 100 mls @ 50 mls/hr 09/10/17 17:00 09/23/17 16:51 Chloride IVPB 50 mls/hr Q24H DIAN Administration Protocol Insulin Aspart 0 vial 09/21/17 16:30 09/23/17 16:51 Novolog Vial Sliding Scale - SQ Not Given ACHS DIAN Protocol Levetiracetam 500 mg/ 750 mg 09/23/17 10:00 09/23/17 10:20 Levetiracetam 250 mg PO 750 mg BID DIAN Administration Levothyroxine Sodium 150 mcg 09/11/17 07:00 09/23/17 07:10 Synthroid - PO 150 mcg DAILY@0700 [facility] Administration Lidocaine 1 patch 09/11/17 10:00 09/23/17 09:19 Lidoderm Patch - TP 1 patch DAILY [facility] Administration Miscellaneous 1 each 09/10/17 14:43 09/15/17 23:22 Duragesic Patch Waste TD 1 each PRN PRN Administration PAIN Miscellaneous 1 each 09/10/17 22:00 09/22/17 21:59 Lidoderm Patch Removal MC 1 each DAILY@2200 [facility] Administration Mupirocin 1 applic 09/10/17 22:00 09/23/17 13:51 Bactroban 2% Cream - TP 1 applic TID DIAN Administration Ondansetron HCl 4 mg 09/10/17 14:38 Zofran Injection IVPUSH Q6H PRN NAUSEA AND/OR VOMITING Oxycodone HCl 5 mg 09/20/17 21:32 09/23/17 17:43 Roxicodone - PO 5 mg Q4H PRN Administration PAIN LEVEL 1-5 Pantoprazole Sodium 40 mg 09/13/17 10:00 09/23/17 09:19 Protonix - PO 40 mg DAILY DI[facility] Administration Polyethylene Glycol 17 gm 09/10/17 17:23 09/23/17 10:20 Miralax (For Daily Use) - PO 17 grams DAILY [facility]AN Administration Impression: Metastatic colon ca MRSA bacteremia Staph cutaneous abscess\ SBO Plan; Periodic labs as suggested. Continue with antibiotics per ID.
[2017-09-23] MEDS: LIDOCAINE PATCH REMOVAL MC SCH (23:08)
[2017-09-24] MEDS: INSULIN SLIDING SCALE (NOVOLOG) 1 VIAL SQ SCH ×4 (06:32→21:01)
[2017-09-24] MEDS: MUPIROCIN CA 2% TOPICAL CREAM 15 GM TUBE TP SCH ×3 (06:33→21:07)
[2017-09-24] MEDS: DEXAMETHASONE 4 MG TABLET (FP) PO SCH ×3 (06:33→21:02)
[2017-09-24] MEDS: LEVOTHYROXINE NA 150 MCG TABLET PO SCH (06:34)
[2017-09-24] MEDS ORDERED: PT OWN MED DRAWER 7, Y5N ONE ×2 (10:20→20:31)
[2017-09-24] MEDS: PANTOPRAZOLE 40 MG TABLET (FP) PO SCH (10:52)
[2017-09-24] MEDS: ENALAPRIL MALEATE 10 MG TABLET (FP) PO SCH (10:52)
[2017-09-24] MEDS: LIDOCAINE 5% TOPICAL PATCH TP SCH (10:53)
[2017-09-24] MEDS: POLYETHYLENE GLYCOL 3350 119 GM BTL PO SCH (10:53)
--- NOTE | 2017-09-24 11:59 | PN ---
Progress Note, Physician History of Present Illness: Remains afebrile, no complaints. - Current Medication List Current Medications: Active Medications Dexamethasone (Decadron -) 2 mg PO TID [facility] Last Admin: 09/24/17 06:33 Dose: 2 mg Docusate Sodium (Colace -) 100 mg PO Q8H PRN PRN Reason: CONSTIPATION Last Admin: 09/19/17 11:19 Dose: 100 mg Enalapril Maleate (Vasotec -) 20 mg PO DAILY [facility] Last Admin: 09/24/17 10:52 Dose: 20 mg IV Flush (Triple Lumen Flush) 4 ml IVPUSH PRN PRN PRN Reason: Protocol Last Admin: 09/16/17 07:22 Dose: 4 ml Daptomycin 750 mg/ Sodium (Chloride) 100 mls @ 50 mls/hr IVPB Q24H [facility] PRN Reason: Protocol Last Admin: 09/23/17 16:51 Dose: 50 mls/hr Insulin Aspart (Novolog Vial Sliding Scale -) 0 vial SQ ACHS [facility] PRN Reason: Protocol Last Admin: 09/24/17 06:32 Dose: Not Given Levetiracetam 500 mg/ (Levetiracetam 250 mg) 750 mg PO BID [facility] Last Admin: 09/24/17 10:53 Dose: 750 mg Levothyroxine Sodium (Synthroid -) 150 mcg PO DAILY@0700 [facility] Last Admin: 09/24/17 06:34 Dose: 150 mcg Lidocaine (Lidoderm Patch -) 1 patch TP DAILY [facility] Last Admin: 09/24/17 10:53 Dose: 1 patch Miscellaneous (Duragesic Patch Waste) 1 each TD PRN PRN PRN Reason: PAIN Last Admin: 09/15/17 23:22 Dose: 1 each Miscellaneous (Lidoderm Patch Removal) 1 each MC DAILY@2200 [facility] Last Admin: 09/23/17 23:08 Dose: 1 each Mupirocin (Bactroban 2% Cream -) 1 applic TP TID [facility] Last Admin: 09/24/17 06:33 Dose: 1 applic Ondansetron HCl (Zofran Injection) 4 mg IVPUSH Q6H PRN PRN Reason: NAUSEA AND/OR VOMITING Oxycodone HCl (Roxicodone -) 5 mg PO Q4H PRN PRN Reason: PAIN LEVEL 1-5 Last Admin: 09/23/17 23:10 Dose: 5 mg Pantoprazole Sodium (Protonix -) 40 mg PO DAILY [facility] Last Admin: 09/24/17 10:52 Dose: 40 mg Polyethylene Glycol (Miralax (For Daily Use) -) 17 gm PO DAILY [facility] Last Admin: 09/24/17 10:53 Dose: 17 grams - Objective Vital Signs: Vital Signs Temperature 97.8 F 09/24/17 05:00 Pulse Rate 65 09/24/17 10:51 Respiratory Rate 18 09/24/17 10:51 Blood Pressure 116/62 09/24/17 10:51 O2 Sat by Pulse Oximetry (%) 97 09/23/17 20:29 Constitutional: Yes: No Distress, Calm Neck: Yes: Supple Cardiovascular: Yes: Regular Rate and Rhythm Respiratory: Yes: Regular, Diminished Gastrointestinal: Yes: Normal Bowel Sounds, Soft, Abdomen, Obese Edema: Yes Edema: LLE: Trace, RLE: Trace Labs: CBC, BMP 09/20/17 07:00 09/20/17 07:00 INR, PTT INR 1.07 (0.82-1.09) 09/07/17 17:38 Problem List - Problems (1) MRSA bacteremia Code(s): R78.81 - BACTEREMIA (2) Colon cancer metastasized to multiple sites Code(s): C18.9 - MALIGNANT NEOPLASM OF COLON, UNSPECIFIED (3) Brain metastases Code(s): C79.31 - SECONDARY MALIGNANT NEOPLASM OF BRAIN (4) Hypothyroidism Code(s): E03.9 - HYPOTHYROIDISM, UNSPECIFIED Qualifiers: Hypothyroidism type: unspecified Qualified Code(s): E03.9 - Hypothyroidism , unspecified (5) Hypertension Code(s): I10 - ESSENTIAL (PRIMARY) HYPERTENSION Qualifiers: Hypertension type: essential hypertension Qualified Code(s): I10 - Essential (primary) hypertension (6) Pyogenic skin abscess due to bacteria Code(s): L02.91 - CUTANEOUS ABSCESS, UNSPECIFIED; B96.89 - OTH BACTERIAL AGENTS THE CAUSE OF DISEASES CLASSD [id number] Assessment/Plan 1. MRSA bacteremia suspect line sepsis post I&D of back abscess/removal of port since cleared 2. Furuncles s/p I & D 3. Metastatic colon carcinoma, lungs and brain post chemotherapy 4. HTN 5. Diabetes mellitus 6. Hypothyroidism 7. Anemia PLAN: 1. Continue Daptomycin course as per ID (5 additional weeks), defer DIANA to exclude endocarditis as repeat blood cultures thus far negative 2. Continue Vasotec 20 qd 3. Continue steroids with GI protection as per the primary team
--- NOTE | 2017-09-24 13:14 | PN ---
Physical Exam: SUBJECTIVE: Patient seen and examined No acute events overnight. No complaints this morning. Feeling well. OBJECTIVE: Vital Signs Period Temp Pulse Resp BP Sys/[place] Pulse Ox Last 24 Hr 97.6 F-98 F 56-65 18-20 102-124/53-68 97 GENERAL: Awake, alert, and fully oriented. No acute distress. HEAD: +scattered bleeding, excorciated lesions on face with 1 on left forehead EYES: Pupils equal, round and reactive to light, extraocular movements intact, sclera anicteric, conjunctiva clear. EARS, NOSE, THROAT: Oropharynx clear without exudates. Moist mucous membranes. NECK: Normal range of motion, supple, L TLC LUNGS: Breath sounds equal, clear to auscultation bilaterally. No wheezes, and no crackles. No accessory muscle use. HEART: Regular rate and rhythm, normal S1 and S2 without murmur, rub or gallop. ABDOMEN: Soft, obese, Diffuse tenderness, +mildly distended, normoactive bowel sounds, no guarding, no rebound, no masses. MUSCULOSKELETAL: +TTP R shoulder with limited active and passive ROM LOWER EXTREMITIES: 2+ posterior tibial pulses, warm, well-perfused. +LLE calf tenderness NEUROLOGICAL: Cranial nerves II-XII intact. Right arm extension 4/5. Shoulder abduction 4/5. Left arm 5/5 at shoulder, elbow, and hand community advocate. Decreased ROM of right shoulder. SKIN: +scattered ulcerative nodules throughout body (face, arms, back, legs) with few purulent draining furuncles. No new lesions Laboratory Results - last 24 hr 09/23/17 09/23/17 09/24/17 16:50 23:03 06:31 POC Glucometer 154 205 131 09/24/17 11:57 POC Glucometer 184 Active Medications Generic Name Dose Route Start Last Admin Trade Name Freq PRN Reason Stop Dose Admin Dexamethasone 2 mg 09/15/17 07:20 09/24/17 06:33 Decadron - PO 2 mg TID DIAN Administration Docusate Sodium 100 mg 09/10/17 14:43 09/19/17 11:19 Colace - PO 100 mg Q8H PRN Administration CONSTIPATION Enalapril Maleate 20 mg 09/11/17 10:00 09/24/17 10:52 Vasotec - PO 20 mg DAILY DIAN Administration IV Flush 4 ml 09/10/17 14:43 09/16/17 07:22 Triple Lumen Flush IVPUSH 4 ml PRN PRN Administration Protocol Daptomycin 750 mg/ Sodium 100 mls @ 50 mls/hr 09/10/17 17:00 09/23/17 16:51 Chloride IVPB 50 mls/hr Q24H DIAN Administration Protocol Insulin Aspart 0 vial 09/21/17 16:30 09/24/17 06:32 Novolog Vial Sliding Scale - SQ Not Given ACHS DIAN Protocol Levetiracetam 500 mg/ 750 mg 09/23/17 10:00 09/24/17 10:53 Levetiracetam 250 mg PO 750 mg BID DIAN Administration Levothyroxine Sodium 150 mcg 09/11/17 07:00 09/24/17 06:34 Synthroid - PO 150 mcg DAILY@0700 DIAN Administration Lidocaine 1 patch 09/11/17 10:00 09/24/17 10:53 Lidoderm Patch - TP 1 patch DAILY DIAN Administration Miscellaneous 1 each 09/10/17 14:43 09/15/17 23:22 Duragesic Patch Waste TD 1 each PRN PRN Administration PAIN Miscellaneous 1 each 09/10/17 22:00 09/23/17 23:08 Lidoderm Patch Removal MC 1 each DAILY@2200 DIAN Administration Mupirocin 1 applic 09/10/17 22:00 09/24/17 06:33 Bactroban 2% Cream - TP 1 applic TID DIAN Administration Ondansetron HCl 4 mg 09/10/17 14:38 Zofran Injection IVPUSH Q6H PRN NAUSEA AND/OR VOMITING Oxycodone HCl 5 mg 09/20/17 21:32 09/23/17 23:10 Roxicodone - PO 5 mg Q4H PRN Administration PAIN LEVEL 1-5 Pantoprazole Sodium 40 mg 09/13/17 10:00 09/24/17 10:52 Protonix - PO 40 mg DAILY DIAN Administration Polyethylene Glycol 17 gm 09/10/17 17:23 09/24/17 10:53 Miralax (For Daily Use) - PO 17 grams DAILY DIAN Administration ASSESSMENT/PLAN: 61 year old F with pmh of 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 last bcx drawn 09/18 -Continue Daptomycin 750 mg q24h day 14 . Will need senior care abx per ID (5 more weeks of Daptomycin) -ID on board #Metastatic Colon Cancer -Decadron 2mg TID -Pain control with fentanyl, oxycodone, and lidocaine patch -MRI of tibia-- bone mets -Continue Keppra 750 mg bid for seizure ppx given brain mets #Abdominal pain, Partial vs complete sbo,, improved -Lactic acid normal -Surgery consulted, Dr. Cohen -Will not proceed with surgical intervention #DM, newly diagnosed -ISS q6h -D/c levemir #HTN -Continue enalapril #FEN/GI -no ivf -wnl -Soft Diet with glucerna tid #PPx -Scds -Protonix Overall prognosis is quite poor. Patient awaiting placement at [facility] [place]. DNI --not DNR. Visit type - Emergency Visit Emergency Visit: Yes ED Registration Date: 09/07/17 Care time: The patient presented to the Emergency Department on the above date and was hospitalized for further evaluation of their emergent condition. - New Patient This patient is new to me today: No - Critical Care Critical Care patient: No
--- NOTE | 2017-09-24 13:49 | PN ---
Teaching Attending Note Name of Resident: Burke Vuong ATTENDING PHYSICIAN STATEMENT I saw and evaluated the patient. I reviewed the resident's note and discussed the case with the resident. I agree with the resident's findings and plan as documented. SUBJECTIVE: Patient has no complaints. OBJECTIVE: Vital Signs Period Temp Pulse Resp BP Sys/[place] Pulse Ox Last 24 Hr 97.6 F-98 F 56-65 18-20 102-124/53-68 97 HEART: S1S2, RRR LUNGS: Clear ABDOMEN: Obese, soft, non-tender, non-distended, normal BS EXTREMITIES: No edema Laboratory Results - last 24 hr 09/23/17 09/23/17 09/24/17 16:50 23:03 06:31 POC Glucometer 154 205 131 09/24/17 11:57 POC Glucometer 184 Current Medications Generic Name Dose Route Start Last Admin Trade Name Freq PRN Reason Stop Dose Admin Dexamethasone 2 mg 09/15/17 07:20 09/24/17 13:34 Decadron - PO 2 mg TID DIAN Administration Docusate Sodium 100 mg 09/10/17 14:43 09/19/17 11:19 Colace - PO 100 mg Q8H PRN Administration CONSTIPATION Enalapril Maleate 20 mg 09/11/17 10:00 09/24/17 10:52 Vasotec - PO 20 mg DAILY DIAN Administration IV Flush 4 ml 09/10/17 14:43 09/16/17 07:22 Triple Lumen Flush IVPUSH 4 ml PRN PRN Administration Protocol Daptomycin 750 mg/ Sodium 100 mls @ 50 mls/hr 09/10/17 17:00 09/23/17 16:51 Chloride IVPB 50 mls/hr Q24H DIAN Administration Protocol Insulin Aspart 0 vial 09/21/17 16:30 09/24/17 13:17 Novolog Vial Sliding Scale - SQ Not Given ACHS DIAN Protocol Levetiracetam 500 mg/ 750 mg 09/23/17 10:00 09/24/17 10:53 Levetiracetam 250 mg PO 750 mg BID DIAN Administration Levothyroxine Sodium 150 mcg 09/11/17 07:00 09/24/17 06:34 Synthroid - PO 150 mcg DAILY@0700 DIAN Administration Lidocaine 1 patch 09/11/17 10:00 09/24/17 10:53 Lidoderm Patch - TP 1 patch DAILY DIAN Administration Miscellaneous 1 each 09/10/17 14:43 09/15/17 23:22 Duragesic Patch Waste TD 1 each PRN PRN Administration PAIN Miscellaneous 1 each 09/10/17 22:00 09/23/17 23:08 Lidoderm Patch Removal MC 1 each DAILY@2200 DIAN Administration Mupirocin 1 applic 09/10/17 22:00 09/24/17 13:34 Bactroban 2% Cream - TP 1 applic TID DIAN Administration Ondansetron HCl 4 mg 09/10/17 14:38 Zofran Injection IVPUSH Q6H PRN NAUSEA AND/OR VOMITING Oxycodone HCl 5 mg 09/20/17 21:32 09/23/17 23:10 Roxicodone - PO 5 mg Q4H PRN Administration PAIN LEVEL 1-5 Pantoprazole Sodium 40 mg 09/13/17 10:00 09/24/17 10:52 Protonix - PO 40 mg DAILY DIAN Administration Polyethylene Glycol 17 gm 09/10/17 17:23 09/24/17 10:53 Miralax (For Daily Use) - PO 17 grams DAILY DIAN Administration ASSESSMENT AND PLAN: This is a 61 year old woman with a history of HTN, colon cancer with metastases to brain and lungs, seizures, hypothyroidism who presented to the ED with worsening skin lesions. 1. MRSA bacteremia - On Daptomycin (day ) 2. Colon cancer with metastases to brain, lungs, bone - Continue Decadron, Lidoderm patch, Duragesic patch, oxycodone as needed 3. Steroid-induced DM - Continue Novolog sliding scale 4. History of seizures secondary to metastatic brain disease - Continue Keppra 5. HTN - Continue Vasotec 6. Hypothyroidism - Continue Synthroid 7. Anemia secondary to chemotherapy, cancer, infection 8. Thrombocytopenia secondary to chemotherapy - Resolved 9. Pseudohyponatremia secondary to hyperglycemia - Resolved 10. Constipation, opioid-induced - Continue Miralax 11. Partial SBO - Resolved 12. Obesity with BMI 38.6 13. Disposition - Plan for transfer to [place]
[2017-09-24] MEDS: DAPTOMYCIN 750 MG in SODIUM CHLORIDE 100 ML IVPB SCH (17:32)
[2017-09-24] MEDS: DOCUSATE SODIUM 100 MG CAPSULE (FP) PO PRN (17:39)
[2017-09-24] MEDS ORDERED: INSULIN (NOVOLOG) ASPART 100 UNITS/ML 10ML VIAL ONE (20:33)
[2017-09-24] MEDS: oxyCODONE HCL 5 MG TABLET PO PRN (21:00)
[2017-09-24] MEDS: DOCUSATE SODIUM 100 MG CAPSULE (FP) PO SCH (21:00)
[2017-09-24] MEDS: LIDOCAINE PATCH REMOVAL MC SCH (21:07)
[2017-09-25] MEDS: DOCUSATE SODIUM 100 MG CAPSULE (FP) PO SCH ×3 (06:31→22:29)
[2017-09-25] MEDS: DEXAMETHASONE 4 MG TABLET (FP) PO SCH ×3 (06:31→22:29)
[2017-09-25] MEDS: INSULIN SLIDING SCALE (NOVOLOG) 1 VIAL SQ SCH ×4 (06:32→22:29)
[2017-09-25] MEDS: LEVOTHYROXINE NA 150 MCG TABLET PO SCH (06:32)
[2017-09-25] MEDS: MUPIROCIN CA 2% TOPICAL CREAM 15 GM TUBE TP SCH ×3 (06:32→22:28)
[2017-09-25 07:36] LABS: HEMATOCRIT 23.9 % (32.4-45.2); HEMOGLOBIN 8.1 GM/dL (10.7-15.3); MCH 30.4 pg (25.7-33.7); MCHC 33.9 g/dl (32.0-36.0); MEAN CELL VOLUME 89.5 fl (80-96); MEAN PLT VOLUME 7.3 fl (7.5-11.1); PLATELET COUNT 148 K/MM3 (134-434); RBC 2.67 M/mm3 (3.60-5.2); RDW 19.1 % (11.6-15.6); WHITE BLOOD COUNT 7.7 K/mm3 (4.0-10.0)
[2017-09-25 08:16] LABS: ANION GAP 9 (8-16); BLOOD UREA NITROGEN 25 mg/dL (7-18); CALCIUM 8.4 mg/dL (8.5-10.1); CHLORIDE 99 mmol/L (98-107); CO2 28 mmol/L (21-32); CREATININE 0.7 mg/dL (0.55-1.02); GLUCOSE,RANDOM 165 mg/dL (74-106); POTASSIUM 4.3 mmol/L (3.5-5.1); SODIUM 136 mmol/L (136-145)
[2017-09-25] MEDS ORDERED: PT OWN MED DRAWER 7, Y5N ONE ×3 (09:24→20:35)
[2017-09-25 09:48] LABS: ANISOCYTOSIS 1+; PLATELET ESTIMATE NORMAL; TEAR DROP CELLS 1+
[2017-09-25] MEDS: ENALAPRIL MALEATE 10 MG TABLET (FP) PO SCH (10:13)
[2017-09-25] MEDS: PANTOPRAZOLE 40 MG TABLET (FP) PO SCH (10:13)
[2017-09-25] MEDS: LIDOCAINE 5% TOPICAL PATCH TP SCH (10:13)
[2017-09-25] MEDS: POLYETHYLENE GLYCOL 3350 119 GM BTL PO SCH (10:15)
--- NOTE | 2017-09-25 10:50 | PN ---
Progress Note, Physician History of Present Illness: Remains afebrile, no complaints. - Current Medication List Current Medications: Active Medications Dexamethasone (Decadron -) 2 mg PO TID [facility] Last Admin: 09/25/17 06:31 Dose: 2 mg Docusate Sodium (Colace -) 100 mg PO TID [facility] Last Admin: 09/25/17 06:31 Dose: 100 mg Enalapril Maleate (Vasotec -) 20 mg PO DAILY [facility] Last Admin: 09/25/17 10:13 Dose: 20 mg IV Flush (Triple Lumen Flush) 4 ml IVPUSH PRN PRN PRN Reason: Protocol Last Admin: 09/16/17 07:22 Dose: 4 ml Daptomycin 750 mg/ Sodium (Chloride) 100 mls @ 50 mls/hr IVPB Q24H [facility] PRN Reason: Protocol Last Admin: 09/24/17 17:32 Dose: 50 mls/hr Insulin Aspart (Novolog Vial Sliding Scale -) 0 vial SQ ACHS [facility] PRN Reason: Protocol Last Admin: 09/25/17 06:32 Dose: Not Given Levetiracetam 500 mg/ (Levetiracetam 250 mg) 750 mg PO BID [facility] Last Admin: 09/25/17 10:14 Dose: 750 mg Levothyroxine Sodium (Synthroid -) 150 mcg PO DAILY@0700 [facility] Last Admin: 09/25/17 06:32 Dose: 150 mcg Lidocaine (Lidoderm Patch -) 1 patch TP DAILY [facility] Last Admin: 09/25/17 10:13 Dose: 1 patch Miscellaneous (Duragesic Patch Waste) 1 each TD PRN PRN PRN Reason: PAIN Last Admin: 09/15/17 23:22 Dose: 1 each Miscellaneous (Lidoderm Patch Removal) 1 each MC DAILY@2200 [facility] Last Admin: 09/24/17 21:07 Dose: 1 each Mupirocin (Bactroban 2% Cream -) 1 applic TP TID [facility] Last Admin: 09/25/17 06:32 Dose: 1 applic Ondansetron HCl (Zofran Injection) 4 mg IVPUSH Q6H PRN PRN Reason: NAUSEA AND/OR VOMITING Oxycodone HCl (Roxicodone -) 5 mg PO Q4H PRN PRN Reason: PAIN LEVEL 1-5 Last Admin: 09/24/17 21:00 Dose: 5 mg Pantoprazole Sodium (Protonix -) 40 mg PO DAILY [facility] Last Admin: 09/25/17 10:13 Dose: 40 mg Polyethylene Glycol (Miralax (For Daily Use) -) 17 gm PO DAILY [facility] Last Admin: 09/25/17 10:15 Dose: Not Given - Objective Vital Signs: Vital Signs Temperature 97.2 F L 09/25/17 09:00 Pulse Rate 63 09/25/17 09:00 Respiratory Rate 18 09/25/17 09:00 Blood Pressure 104/58 09/25/17 09:00 O2 Sat by Pulse Oximetry (%) 98 09/24/17 20:56 Constitutional: Yes: No Distress, Calm Neck: Yes: Supple Cardiovascular: Yes: Regular Rate and Rhythm Respiratory: Yes: Regular, Diminished, On Nasal O2 Gastrointestinal: Yes: Normal Bowel Sounds, Soft, Abdomen, Obese Edema: No Labs: CBC, BMP 09/25/17 06:00 09/25/17 06:00 INR, PTT INR 1.07 (0.82-1.09) 09/07/17 17:38 Problem List - Problems (1) MRSA bacteremia Code(s): R78.81 - BACTEREMIA (2) Colon cancer metastasized to multiple sites Code(s): C18.9 - MALIGNANT NEOPLASM OF COLON, UNSPECIFIED (3) Brain metastases Code(s): C79.31 - SECONDARY MALIGNANT NEOPLASM OF BRAIN (4) Hypothyroidism Code(s): E03.9 - HYPOTHYROIDISM, UNSPECIFIED Qualifiers: Hypothyroidism type: unspecified Qualified Code(s): E03.9 - Hypothyroidism , unspecified (5) Hypertension Code(s): I10 - ESSENTIAL (PRIMARY) HYPERTENSION Qualifiers: Hypertension type: essential hypertension Qualified Code(s): I10 - Essential (primary) hypertension (6) Pyogenic skin abscess due to bacteria Code(s): L02.91 - CUTANEOUS ABSCESS, UNSPECIFIED; B96.89 - OTH BACTERIAL AGENTS THE CAUSE OF DISEASES CLASSD [id number] Assessment/Plan 1. MRSA bacteremia suspect line sepsis post I&D of back abscess/removal of port since cleared 2. Furuncles s/p I & D 3. Metastatic colon carcinoma to lungs, bone and brain post chemotherapy 4. HTN 5. Diabetes mellitus 6. Hypothyroidism 7. Anemia 8. Seizure d/o referable to brain mets PLAN: 1. Continue Daptomycin course as per ID (5 additional weeks), defer DIANA to exclude endocarditis as repeat blood cultures thus far negative 2. Continue Vasotec 20 qd 3. Continue steroids with GI protection as per the primary team 4. Plan for [place] referral
--- NOTE | 2017-09-25 12:48 | PN ---
Teaching Attending Note Name of Resident: Burke Vuong ATTENDING PHYSICIAN STATEMENT I saw and evaluated the patient. I reviewed the resident's note and discussed the case with the resident. I agree with the resident's findings and plan as documented. SUBJECTIVE: No complaints. OBJECTIVE: Vital Signs Period Temp Pulse Resp BP Sys/[place] Pulse Ox Last 24 Hr 97.2 F-98.0 F 58-64 18-18 96-107/54-61 97-98 HEART: S1S2, RRR LUNGS: Clear ABDOMEN: Obese, soft, non-tender, non-distended, normal BS EXTREMITIES: No edema Laboratory Results - last 24 hr 09/24/17 09/24/17 09/25/17 17:31 20:50 06:00 WBC 7.7 RBC 2.67 L Hgb 8.1 L Hct 23.9 L MCV 89.5 MCH 30.4 MCHC 33.9 RDW 19.1 H Plt Count 148 MPV 7.3 L Neutrophils % No Result Required. Neutrophils % (Manual) 87.1 H Band Neutrophils % 1.1 Lymphocytes % No Result Required. Lymphocytes % (Manual) 8.6 D Monocytes % (Manual) 1 L D Eosinophils % (Manual) 0.0 D Basophils % (Manual) 0.0 Myelocytes % (Man) 2 D Promyelocytes % (Man) 0 Blast Cells % (Manual) 0 Nucleated RBC % 1 H Metamyelocytes 0 Platelet Estimate Normal Polychromasia 1+ Poikilocytosis 0 Anisocytosis 1+ Microcytosis 1+ Tear Drop Cells 1+ Stomatocytes 1+ Sodium Potassium Chloride Carbon Dioxide Anion Gap BUN Creatinine POC Glucometer 210 254 Random Glucose Calcium 09/25/17 09/25/17 09/25/17 06:00 06:29 11:38 WBC RBC Hgb Hct MCV MCH MCHC RDW Plt Count MPV Neutrophils % Neutrophils % (Manual) Band Neutrophils % Lymphocytes % Lymphocytes % (Manual) Monocytes % (Manual) Eosinophils % (Manual) Basophils % (Manual) Myelocytes % (Man) Promyelocytes % (Man) Blast Cells % (Manual) Nucleated RBC % Metamyelocytes Platelet Estimate Polychromasia Poikilocytosis Anisocytosis Microcytosis Tear Drop Cells Stomatocytes Sodium 136 Potassium 4.3 Chloride 99 Carbon Dioxide 28 Anion Gap 9 BUN 25 H Creatinine 0.7 POC Glucometer 179 151 Random Glucose 165 H Calcium 8.4 L Current Medications Generic Name Dose Route Start Last Admin Trade Name Freq PRN Reason Stop Dose Admin Dexamethasone 2 mg 09/15/17 07:20 09/25/17 06:31 Decadron - PO 2 mg TID DIAN Administration Docusate Sodium 100 mg 09/24/17 22:00 09/25/17 06:31 Colace - PO 100 mg TID DIAN Administration Enalapril Maleate 20 mg 09/11/17 10:00 09/25/17 10:13 Vasotec - PO 20 mg DAILY DIAN Administration IV Flush 4 ml 09/10/17 14:43 09/16/17 07:22 Triple Lumen Flush IVPUSH 4 ml PRN PRN Administration Protocol Daptomycin 750 mg/ Sodium 100 mls @ 50 mls/hr 09/10/17 17:00 09/24/17 17:32 Chloride IVPB 50 mls/hr Q24H DIAN Administration Protocol Insulin Aspart 0 vial 09/21/17 16:30 09/25/17 11:41 Novolog Vial Sliding Scale - SQ Not Given ACHS [facility] Protocol Levetiracetam 500 mg/ 750 mg 09/23/17 10:00 09/25/17 10:14 Levetiracetam 250 mg PO 750 mg BID DIAN Administration Levothyroxine Sodium 150 mcg 09/11/17 07:00 09/25/17 06:32 Synthroid - PO 150 mcg DAILY@0700 DIAN Administration Lidocaine 1 patch 09/11/17 10:00 09/25/17 10:13 Lidoderm Patch - TP 1 patch DAILY DIAN Administration Miscellaneous 1 each 09/10/17 14:43 09/15/17 23:22 Duragesic Patch Waste TD 1 each PRN PRN Administration PAIN Miscellaneous 1 each 09/10/17 22:00 09/24/17 21:07 Lidoderm Patch Removal MC 1 each DAILY@2200 DIAN Administration Mupirocin 1 applic 09/10/17 22:00 09/25/17 06:32 Bactroban 2% Cream - TP 1 applic TID DIAN Administration Ondansetron HCl 4 mg 09/10/17 14:38 Zofran Injection IVPUSH Q6H PRN NAUSEA AND/OR VOMITING Oxycodone HCl 5 mg 09/20/17 21:32 09/24/17 21:00 Roxicodone - PO 5 mg Q4H PRN Administration PAIN LEVEL 1-5 Pantoprazole Sodium 40 mg 09/13/17 10:00 09/25/17 10:13 Protonix - PO 40 mg DAILY DIAN Administration Polyethylene Glycol 17 gm 09/10/17 17:23 09/25/17 10:15 Miralax (For Daily Use) - PO Not Given DAILY DIAN ASSESSMENT AND PLAN: This is a 61 year old woman with a history of HTN, colon cancer with metastases to brain and lungs, seizures, hypothyroidism who presented to the ED with worsening skin lesions. 1. MRSA bacteremia - On Daptomycin (day ) 2. Colon cancer with metastases to brain, lungs, bone - Continue Decadron, Lidoderm patch, Duragesic patch, oxycodone as needed 3. Steroid-induced DM - Continue Novolog sliding scale 4. History of seizures secondary to metastatic brain disease - Continue Keppra 5. HTN - Continue Vasotec 6. Hypothyroidism - Continue Synthroid 7. Anemia secondary to chemotherapy, cancer, infection 8. Thrombocytopenia secondary to chemotherapy - Resolved 9. Pseudohyponatremia secondary to hyperglycemia - Resolved 10. Constipation, opioid-induced - Continue Miralax 11. Partial SBO - Resolved 12. Obesity with BMI 38.6 13. Disposition - Plan for transfer to [place]
[2017-09-25] MEDS: oxyCODONE HCL 5 MG TABLET PO PRN ×2 (13:14→17:42)
--- NOTE | 2017-09-25 15:20 | PN ---
Physical Exam: SUBJECTIVE: Patient seen and examined No acute events overnight. No complaints this morning. Feeling well. OBJECTIVE: Vital Signs Period Temp Pulse Resp BP Sys/[place] Pulse Ox Last 24 Hr 97.2 F-98.1 F 58-64 18-18 98-107/55-61 97-98 GENERAL: Awake, alert, and fully oriented. No acute distress. HEAD: +scattered bleeding, excorciated lesions on face with 1 on left forehead EYES: Pupils equal, round and reactive to light, extraocular movements intact, sclera anicteric, conjunctiva clear. EARS, NOSE, THROAT: Oropharynx clear without exudates. Moist mucous membranes. NECK: Normal range of motion, supple, L TLC LUNGS: Breath sounds equal, clear to auscultation bilaterally. No wheezes, and no crackles. No accessory muscle use. HEART: Regular rate and rhythm, normal S1 and S2 without murmur, rub or gallop. ABDOMEN: Soft, obese, Diffuse tenderness, +mildly distended, normoactive bowel sounds, no guarding, no rebound, no masses. MUSCULOSKELETAL: +TTP R shoulder with limited active and passive ROM LOWER EXTREMITIES: 2+ posterior tibial pulses, warm, well-perfused. +LLE calf tenderness NEUROLOGICAL: Cranial nerves II-XII intact. Right arm extension 4/5. Shoulder abduction 4/5. Left arm 5/5 at shoulder, elbow, and hand welfare investigator. Decreased ROM of right shoulder. SKIN: +scattered ulcerative nodules throughout body (face, arms, back, legs) with few purulent draining furuncles. No new lesions Laboratory Results - last 24 hr 09/24/17 09/24/17 09/25/17 17:31 20:50 06:00 WBC 7.7 RBC 2.67 L Hgb 8.1 L Hct 23.9 L MCV 89.5 MCH 30.4 MCHC 33.9 RDW 19.1 H Plt Count 148 MPV 7.3 L Neutrophils % No Result Required. Neutrophils % (Manual) 87.1 H Band Neutrophils % 1.1 Lymphocytes % No Result Required. Lymphocytes % (Manual) 8.6 D Monocytes % (Manual) 1 L D Eosinophils % (Manual) 0.0 D Basophils % (Manual) 0.0 Myelocytes % (Man) 2 D Promyelocytes % (Man) 0 Blast Cells % (Manual) 0 Nucleated RBC % 1 H Metamyelocytes 0 Platelet Estimate Normal Polychromasia 1+ Poikilocytosis 0 Anisocytosis 1+ Microcytosis 1+ Tear Drop Cells 1+ Stomatocytes 1+ Sodium Potassium Chloride Carbon Dioxide Anion Gap BUN Creatinine POC Glucometer 210 254 Random Glucose Calcium 09/25/17 09/25/17 09/25/17 06:00 06:29 11:38 WBC RBC Hgb Hct MCV MCH MCHC RDW Plt Count MPV Neutrophils % Neutrophils % (Manual) Band Neutrophils % Lymphocytes % Lymphocytes % (Manual) Monocytes % (Manual) Eosinophils % (Manual) Basophils % (Manual) Myelocytes % (Man) Promyelocytes % (Man) Blast Cells % (Manual) Nucleated RBC % Metamyelocytes Platelet Estimate Polychromasia Poikilocytosis Anisocytosis Microcytosis Tear Drop Cells Stomatocytes Sodium 136 Potassium 4.3 Chloride 99 Carbon Dioxide 28 Anion Gap 9 BUN 25 H Creatinine 0.7 POC Glucometer 179 151 Random Glucose 165 H Calcium 8.4 L Active Medications Generic Name Dose Route Start Last Admin Trade Name Freq PRN Reason Stop Dose Admin Dexamethasone 2 mg 09/15/17 07:20 09/25/17 13:15 Decadron - PO 2 mg TID DIAN Administration Docusate Sodium 100 mg 09/24/17 22:00 09/25/17 13:15 Colace - PO 100 mg TID DIAN Administration Enalapril Maleate 20 mg 09/11/17 10:00 09/25/17 10:13 Vasotec - PO 20 mg DAILY [facility] Administration IV Flush 4 ml 09/10/17 14:43 09/16/17 07:22 Triple Lumen Flush IVPUSH 4 ml PRN PRN Administration Protocol Daptomycin 750 mg/ Sodium 100 mls @ 50 mls/hr 09/10/17 17:00 09/24/17 17:32 Chloride IVPB 50 mls/hr Q24H [facility] Administration Protocol Insulin Aspart 0 vial 09/21/17 16:30 09/25/17 11:41 Novolog Vial Sliding Scale - SQ Not Given ACHS [facility] Protocol Levetiracetam 500 mg/ 750 mg 09/23/17 10:00 09/25/17 10:14 Levetiracetam 250 mg PO 750 mg BID DIAN Administration Levothyroxine Sodium 150 mcg 09/11/17 07:00 09/25/17 06:32 Synthroid - PO 150 mcg DAILY@0700 [facility] Administration Lidocaine 1 patch 09/11/17 10:00 09/25/17 10:13 Lidoderm Patch - TP 1 patch DAILY [facility] Administration Miscellaneous 1 each 09/10/17 14:43 09/15/17 23:22 Duragesic Patch Waste TD 1 each PRN PRN Administration PAIN Miscellaneous 1 each 09/10/17 22:00 09/24/17 21:07 Lidoderm Patch Removal MC 1 each DAILY@2200 [facility] Administration Mupirocin 1 applic 09/10/17 22:00 09/25/17 13:18 Bactroban 2% Cream - TP 1 applic TID [facility] Administration Ondansetron HCl 4 mg 09/10/17 14:38 Zofran Injection IVPUSH Q6H PRN NAUSEA AND/OR VOMITING Oxycodone HCl 5 mg 09/20/17 21:32 09/25/17 13:14 Roxicodone - PO 5 mg Q4H PRN Administration PAIN LEVEL 1-5 Pantoprazole Sodium 40 mg 09/13/17 10:00 09/25/17 10:13 Protonix - PO 40 mg DAILY [facility] Administration Polyethylene Glycol 17 gm 09/10/17 17:23 09/25/17 10:15 Miralax (For Daily Use) - PO Not Given DAILY [facility] ASSESSMENT/PLAN: 61 year old F with pmh of 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 last bcx drawn 09/18 -Continue Daptomycin 750 mg q24h day 16 . Will need longwall foreman abx per ID (5 more weeks of Daptomycin) -ID on board #Metastatic Colon Cancer -Decadron 2mg TID -Pain control with fentanyl, oxycodone, and lidocaine patch -MRI of tibia-- bone mets -Continue Keppra 750 mg bid for seizure ppx given brain mets #Abdominal pain, Partial vs complete sbo,, improved -Lactic acid normal -Surgery consulted, Dr. Cohen -Will not proceed with surgical intervention #DM, newly diagnosed -ISS q6h -D/c levemir #HTN -Continue enalapril #FEN/GI -no ivf -wnl -Soft Diet with glucerna tid #PPx -Scds -Protonix Overall prognosis is quite poor. Patient awaiting placement at [place]. DNI --not DNR. Visit type - Emergency Visit Emergency Visit: Yes ED Registration Date: 09/07/17 Care time: The patient presented to the Emergency Department on the above date and was hospitalized for further evaluation of their emergent condition. - New Patient This patient is new to me today: No - Critical Care Critical Care patient: No
[2017-09-25] MEDS: DAPTOMYCIN 750 MG in SODIUM CHLORIDE 100 ML IVPB SCH (17:33)
[2017-09-25] MEDS: LIDOCAINE PATCH REMOVAL MC SCH (22:29)
[2017-09-26] MEDS: oxyCODONE HCL 5 MG TABLET PO PRN ×3 (02:16→22:26)
[2017-09-26] MEDS: MUPIROCIN CA 2% TOPICAL CREAM 15 GM TUBE TP SCH ×3 (06:26→22:26)
[2017-09-26] MEDS: INSULIN SLIDING SCALE (NOVOLOG) 1 VIAL SQ SCH ×4 (06:27→22:26)
[2017-09-26] MEDS: DEXAMETHASONE 4 MG TABLET (FP) PO SCH ×3 (06:27→22:25)
[2017-09-26] MEDS: LEVOTHYROXINE NA 150 MCG TABLET PO SCH (06:27)
[2017-09-26] MEDS: DOCUSATE SODIUM 100 MG CAPSULE (FP) PO SCH ×3 (06:27→22:29)
--- NOTE | 2017-09-26 10:31 | PN ---
Progress Note, Physician History of Present Illness: Remains afebrile, no complaints. - Current Medication List Current Medications: Active Medications Dexamethasone (Decadron -) 2 mg PO TID [facility] Last Admin: 09/26/17 06:27 Dose: 2 mg Docusate Sodium (Colace -) 100 mg PO TID [facility] Last Admin: 09/26/17 06:27 Dose: 100 mg Enalapril Maleate (Vasotec -) 20 mg PO DAILY [facility] Last Admin: 09/25/17 10:13 Dose: 20 mg IV Flush (Triple Lumen Flush) 4 ml IVPUSH PRN PRN PRN Reason: Protocol Last Admin: 09/16/17 07:22 Dose: 4 ml Daptomycin 750 mg/ Sodium (Chloride) 100 mls @ 50 mls/hr IVPB Q24H [facility] PRN Reason: Protocol Last Admin: 09/25/17 17:33 Dose: 50 mls/hr Insulin Aspart (Novolog Vial Sliding Scale -) 0 vial SQ ACHS [facility] PRN Reason: Protocol Last Admin: 09/26/17 06:27 Dose: Not Given Levetiracetam 500 mg/ (Levetiracetam 250 mg) 750 mg PO BID [facility] Last Admin: 09/25/17 22:28 Dose: 750 mg Levothyroxine Sodium (Synthroid -) 150 mcg PO DAILY@0700 [facility] Last Admin: 09/26/17 06:27 Dose: 150 mcg Lidocaine (Lidoderm Patch -) 1 patch TP DAILY [facility] Last Admin: 09/25/17 10:13 Dose: 1 patch Miscellaneous (Duragesic Patch Waste) 1 each TD PRN PRN PRN Reason: PAIN Last Admin: 09/15/17 23:22 Dose: 1 each Miscellaneous (Lidoderm Patch Removal) 1 each MC DAILY@2200 [facility] Last Admin: 09/25/17 22:29 Dose: 1 each Mupirocin (Bactroban 2% Cream -) 1 applic TP TID [facility] Last Admin: 09/26/17 06:26 Dose: 1 applic Ondansetron HCl (Zofran Injection) 4 mg IVPUSH Q6H PRN PRN Reason: NAUSEA AND/OR VOMITING Oxycodone HCl (Roxicodone -) 5 mg PO Q4H PRN PRN Reason: PAIN LEVEL 1-5 Last Admin: 09/26/17 02:16 Dose: 5 mg Pantoprazole Sodium (Protonix -) 40 mg PO DAILY [facility] Last Admin: 09/25/17 10:13 Dose: 40 mg Polyethylene Glycol (Miralax (For Daily Use) -) 17 gm PO DAILY [facility] Last Admin: 09/25/17 10:15 Dose: Not Given - Objective Vital Signs: Vital Signs Temperature 97.9 F 09/26/17 05:53 Pulse Rate 62 09/26/17 05:53 Respiratory Rate 18 09/26/17 05:53 Blood Pressure 112/60 09/26/17 05:53 O2 Sat by Pulse Oximetry (%) 100 09/25/17 21:00 Constitutional: Yes: No Distress, Calm Neck: Yes: Supple Cardiovascular: Yes: Regular Rate and Rhythm Respiratory: Yes: Regular, Diminished Gastrointestinal: Yes: Normal Bowel Sounds, Soft, Abdomen, Obese Edema: No Labs: CBC, BMP 09/25/17 06:00 09/25/17 06:00 INR, PTT INR 1.07 (0.82-1.09) 09/07/17 17:38 Problem List - Problems (1) MRSA bacteremia Code(s): R78.81 - BACTEREMIA (2) Colon cancer metastasized to multiple sites Code(s): C18.9 - MALIGNANT NEOPLASM OF COLON, UNSPECIFIED (3) Brain metastases Code(s): C79.31 - SECONDARY MALIGNANT NEOPLASM OF BRAIN (4) Hypothyroidism Code(s): E03.9 - HYPOTHYROIDISM, UNSPECIFIED Qualifiers: Hypothyroidism type: unspecified Qualified Code(s): E03.9 - Hypothyroidism , unspecified (5) Hypertension Code(s): I10 - ESSENTIAL (PRIMARY) HYPERTENSION Qualifiers: Hypertension type: essential hypertension Qualified Code(s): I10 - Essential (primary) hypertension (6) Pyogenic skin abscess due to bacteria Code(s): L02.91 - CUTANEOUS ABSCESS, UNSPECIFIED; B96.89 - OTH BACTERIAL AGENTS THE CAUSE OF DISEASES CLASSD [id number] Assessment/Plan 1. MRSA bacteremia suspect line sepsis post I&D of back abscess/removal of port since cleared 2. Furuncles s/p I & D 3. Metastatic colon carcinoma to lungs, bone and brain post chemotherapy 4. HTN 5. Diabetes mellitus 6. Hypothyroidism 7. Anemia 8. Seizure d/o referable to brain mets PLAN: 1. Continue Daptomycin course as per ID (day ), defer DIANA to exclude endocarditis as repeat blood cultures since 09/15 have been negative 2. Continue Vasotec 20 qd 3. Continue steroids with GI protection as per the primary team 4. Plan for [place] referral
[2017-09-26] MEDS: ENALAPRIL MALEATE 10 MG TABLET (FP) PO SCH (10:38)
[2017-09-26] MEDS: PANTOPRAZOLE 40 MG TABLET (FP) PO SCH (10:38)
[2017-09-26] MEDS: POLYETHYLENE GLYCOL 3350 119 GM BTL PO SCH (10:39)
[2017-09-26] MEDS: LIDOCAINE 5% TOPICAL PATCH TP SCH (10:39)
[2017-09-26] MEDS ORDERED: PT OWN MED DRAWER 7, Y5N ONE (10:41)
--- NOTE | 2017-09-26 11:12 | PN ---
Progress Note (short form) - Note Progress Note: Patient seen and examined Tolerating p.o. Last Vital Signs Temp Pulse Resp BP Pulse Ox 97.9 F 62 18 112/60 100 09/26/17 05:53 09/26/17 05:53 09/26/17 05:53 09/26/17 05:53 09/25/17 21:00 HEENT: BETSY, EOM Intact Oropharynx: No thrush, No mucositis Cor: RSR, No murmurs, No gallops Lungs: diminished breath sounds Abd: Soft, Normal bowel sounds, ventral hernia Ext:No significant edema Skin: Integument intact CBC, BMP 09/25/17 06:00 09/25/17 06:00 Current Medications Generic Name Dose Route Start Last Admin Trade Name Freq PRN Reason Stop Dose Admin Dexamethasone 2 mg 09/15/17 07:20 09/26/17 06:27 Decadron - PO 2 mg TID DIAN Administration Docusate Sodium 100 mg 09/24/17 22:00 09/26/17 06:27 Colace - PO 100 mg TID DIAN Administration Enalapril Maleate 20 mg 09/11/17 10:00 09/25/17 10:13 Vasotec - PO 20 mg DAILY DIAN Administration IV Flush 4 ml 09/10/17 14:43 09/16/17 07:22 Triple Lumen Flush IVPUSH 4 ml PRN PRN Administration Protocol Daptomycin 750 mg/ Sodium 100 mls @ 50 mls/hr 09/10/17 17:00 09/25/17 17:33 Chloride IVPB 50 mls/hr Q24H DIAN Administration Protocol Insulin Aspart 0 vial 09/21/17 16:30 09/26/17 06:27 Novolog Vial Sliding Scale - SQ Not Given ACHS DIAN Protocol Levetiracetam 500 mg/ 750 mg 09/23/17 10:00 09/25/17 22:28 Levetiracetam 250 mg PO 750 mg BID DIAN Administration Levothyroxine Sodium 150 mcg 09/11/17 07:00 09/26/17 06:27 Synthroid - PO 150 mcg DAILY@0700 DIAN Administration Lidocaine 1 patch 09/11/17 10:00 09/25/17 10:13 Lidoderm Patch - TP 1 patch DAILY DIAN Administration Miscellaneous 1 each 09/10/17 14:43 09/15/17 23:22 Duragesic Patch Waste TD 1 each PRN PRN Administration PAIN Miscellaneous 1 each 09/10/17 22:00 09/25/17 22:29 Lidoderm Patch Removal MC 1 each DAILY@2200 DIAN Administration Mupirocin 1 applic 09/10/17 22:00 09/26/17 06:26 Bactroban 2% Cream - TP 1 applic TID DIAN Administration Ondansetron HCl 4 mg 09/10/17 14:38 Zofran Injection IVPUSH Q6H PRN NAUSEA AND/OR VOMITING Oxycodone HCl 5 mg 09/20/17 21:32 09/26/17 02:16 Roxicodone - PO 5 mg Q4H PRN Administration PAIN LEVEL 1-5 Pantoprazole Sodium 40 mg 09/13/17 10:00 09/25/17 10:13 Protonix - PO 40 mg DAILY DIAN Administration Polyethylene Glycol 17 gm 09/10/17 17:23 09/25/17 10:15 Miralax (For Daily Use) - PO Not Given DAILY DIAN Impression: Metastatic colon ca SBO Staph cutaneous lesion Staph sepsis MRSA Plan: Current treatment
--- NOTE | 2017-09-26 16:04 | PN ---
Physical Exam: SUBJECTIVE: Patient seen and examined No acute events overnight. No complaints this morning. Feeling well. OBJECTIVE: Vital Signs Period Temp Pulse Resp BP Sys/[place] Pulse Ox Last 24 Hr 97.9 F-98.3 F 60-68 16-18 101-118/58-64 100-100 GENERAL: Awake, alert, and fully oriented. No acute distress. HEAD: +scattered bleeding, excorciated lesions on face with 1 on left forehead EYES: Pupils equal, round and reactive to light, extraocular movements intact, sclera anicteric, conjunctiva clear. EARS, NOSE, THROAT: Oropharynx clear without exudates. Moist mucous membranes. NECK: Normal range of motion, supple, L TLC LUNGS: Breath sounds equal, clear to auscultation bilaterally. No wheezes, and no crackles. No accessory muscle use. HEART: Regular rate and rhythm, normal S1 and S2 without murmur, rub or gallop. ABDOMEN: Soft, obese, Diffuse tenderness, +mildly distended, normoactive bowel sounds, no guarding, no rebound, no masses. MUSCULOSKELETAL: +TTP R shoulder with limited active and passive ROM LOWER EXTREMITIES: 2+ posterior tibial pulses, warm, well-perfused. +LLE calf tenderness NEUROLOGICAL: Cranial nerves II-XII intact. Right arm extension 4/5. Shoulder abduction 4/5. Left arm 5/5 at shoulder, elbow, and hand frame straightener. Decreased ROM of right shoulder. SKIN: +scattered ulcerative nodules throughout body (face, arms, back, legs) with few purulent draining furuncles. No new lesions Laboratory Results - last 24 hr 09/25/17 09/25/17 09/26/17 16:35 22:27 12:13 POC Glucometer 190 140 186 Active Medications Generic Name Dose Route Start Last Admin Trade Name Freq PRN Reason Stop Dose Admin Dexamethasone 2 mg 09/15/17 07:20 09/26/17 13:48 Decadron - PO 2 mg TID DIAN Administration Docusate Sodium 100 mg 09/24/17 22:00 09/26/17 13:48 Colace - PO Not Given TID DIAN Enalapril Maleate 20 mg 09/11/17 10:00 09/26/17 10:38 Vasotec - PO 20 mg DAILY DIAN Administration IV Flush 4 ml 09/10/17 14:43 09/16/17 07:22 Triple Lumen Flush IVPUSH 4 ml PRN PRN Administration Protocol Daptomycin 750 mg/ Sodium 100 mls @ 50 mls/hr 09/10/17 17:00 09/25/17 17:33 Chloride IVPB 50 mls/hr Q24H DIAN Administration Protocol Insulin Aspart 0 vial 09/21/17 16:30 09/26/17 13:47 Novolog Vial Sliding Scale - SQ Not Given ACHS DIAN Protocol Levetiracetam 500 mg/ 750 mg 09/23/17 10:00 09/26/17 10:42 Levetiracetam 250 mg PO 750 mg BID DIAN Administration Levothyroxine Sodium 150 mcg 09/11/17 07:00 09/26/17 06:27 Synthroid - PO 150 mcg DAILY@0700 DIAN Administration Lidocaine 1 patch 09/11/17 10:00 09/26/17 10:39 Lidoderm Patch - TP 1 patch DAILY DIAN Administration Miscellaneous 1 each 09/10/17 14:43 09/15/17 23:22 Duragesic Patch Waste TD 1 each PRN PRN Administration PAIN Miscellaneous 1 each 09/10/17 22:00 09/25/17 22:29 Lidoderm Patch Removal MC 1 each DAILY@2200 DIAN Administration Mupirocin 1 applic 09/10/17 22:00 09/26/17 13:48 Bactroban 2% Cream - TP 1 applic TID DIAN Administration Ondansetron HCl 4 mg 09/10/17 14:38 Zofran Injection IVPUSH Q6H PRN NAUSEA AND/OR VOMITING Oxycodone HCl 5 mg 09/20/17 21:32 09/26/17 02:16 Roxicodone - PO 5 mg Q4H PRN Administration PAIN LEVEL 1-5 Pantoprazole Sodium 40 mg 09/13/17 10:00 09/26/17 10:38 Protonix - PO 40 mg DAILY DIAN Administration Polyethylene Glycol 17 gm 09/10/17 17:23 09/26/17 10:39 Miralax (For Daily Use) - PO Not Given DAILY DIAN ASSESSMENT/PLAN: 61 year old F with pmh of 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 last bcx drawn 09/18 -Continue Daptomycin 750 mg q24h day 17. Will need [facility] abx per ID (4-5 more weeks of Daptomycin) -ID on board #Metastatic Colon Cancer -Decadron 2mg TID -Pain control with fentanyl, oxycodone, and lidocaine patch -MRI of tibia-- bone mets -Continue Keppra 750 mg bid for seizure ppx given brain mets #Abdominal pain, Partial vs complete sbo,, improved -Lactic acid normal -Surgery consulted, Dr. Cohen -Will not proceed with surgical intervention #DM, newly diagnosed -ISS q6h -D/c levemir #HTN -Continue enalapril #FEN/GI -no ivf -wnl -Soft Diet with glucerna tid #PPx -Scds -Protonix Overall prognosis is quite poor. Patient awaiting placement at [place]. DNI --not DNR. Visit type - Emergency Visit Emergency Visit: Yes ED Registration Date: 09/07/17 Care time: The patient presented to the Emergency Department on the above date and was hospitalized for further evaluation of their emergent condition. - New Patient This patient is new to me today: No - Critical Care Critical Care patient: No
[2017-09-26] MEDS: DAPTOMYCIN 750 MG in SODIUM CHLORIDE 100 ML IVPB SCH (17:19)
[2017-09-26] MEDS ORDERED: INSULIN (NOVOLOG) ASPART 100 UNITS/ML 10ML VIAL ONE (17:20)
--- NOTE | 2017-09-26 17:24 | PN ---
Teaching Attending Note Name of Resident: Burke Vuong ATTENDING PHYSICIAN STATEMENT I saw and evaluated the patient. I reviewed the resident's note and discussed the case with the resident. I agree with the resident's findings and plan as documented. SUBJECTIVE: No complaints. OBJECTIVE: Vital Signs Period Temp Pulse Resp BP Sys/[place] Pulse Ox Last 24 Hr 97.9 F-98.3 F 60-68 16-18 101-118/58-64 100-100 HEART: S1S2, RRR LUNGS: Clear ABDOMEN: Obese, soft, non-tender, non-distended, normal BS EXTREMITIES: No edema Laboratory Results - last 24 hr 09/25/17 09/26/17 22:27 12:13 POC Glucometer 140 186 Current Medications Generic Name Dose Route Start Last Admin Trade Name Freq PRN Reason Stop Dose Admin Dexamethasone 2 mg 09/15/17 07:20 09/26/17 13:48 Decadron - PO 2 mg TID DIAN Administration Docusate Sodium 100 mg 09/24/17 22:00 09/26/17 13:48 Colace - PO Not Given TID DIAN Enalapril Maleate 20 mg 09/11/17 10:00 09/26/17 10:38 Vasotec - PO 20 mg DAILY DIAN Administration IV Flush 4 ml 09/10/17 14:43 09/16/17 07:22 Triple Lumen Flush IVPUSH 4 ml PRN PRN Administration Protocol Daptomycin 750 mg/ Sodium 100 mls @ 50 mls/hr 09/10/17 17:00 09/26/17 17:19 Chloride IVPB 50 mls/hr Q24H DIAN Administration Protocol Insulin Aspart 0 vial 09/21/17 16:30 09/26/17 17:21 Novolog Vial Sliding Scale - SQ 2 unit ACHS DIAN Administration Protocol Levetiracetam 500 mg/ 750 mg 09/23/17 10:00 09/26/17 10:42 Levetiracetam 250 mg PO 750 mg BID DIAN Administration Levothyroxine Sodium 150 mcg 09/11/17 07:00 09/26/17 06:27 Synthroid - PO 150 mcg DAILY@0700 DIAN Administration Lidocaine 1 patch 09/11/17 10:00 09/26/17 10:39 Lidoderm Patch - TP 1 patch DAILY DIAN Administration Miscellaneous 1 each 09/10/17 14:43 09/15/17 23:22 Duragesic Patch Waste TD 1 each PRN PRN Administration PAIN Miscellaneous 1 each 09/10/17 22:00 09/25/17 22:29 Lidoderm Patch Removal MC 1 each DAILY@2200 DIAN Administration Mupirocin 1 applic 09/10/17 22:00 09/26/17 13:48 Bactroban 2% Cream - TP 1 applic TID DIAN Administration Ondansetron HCl 4 mg 09/10/17 14:38 Zofran Injection IVPUSH Q6H PRN NAUSEA AND/OR VOMITING Oxycodone HCl 5 mg 09/20/17 21:32 09/26/17 02:16 Roxicodone - PO 5 mg Q4H PRN Administration PAIN LEVEL 1-5 Pantoprazole Sodium 40 mg 09/13/17 10:00 09/26/17 10:38 Protonix - PO 40 mg DAILY DIAN Administration Polyethylene Glycol 17 gm 09/10/17 17:23 09/26/17 10:39 Miralax (For Daily Use) - PO Not Given DAILY DIAN ASSESSMENT AND PLAN: This is a 61 year old woman with a history of HTN, colon cancer with metastases to brain and lungs, seizures, hypothyroidism who presented to the ED with worsening skin lesions. 1. MRSA bacteremia - On Daptomycin (day ) 2. Colon cancer with metastases to brain, lungs, bone - Continue Decadron, Lidoderm patch, Duragesic patch, oxycodone as needed 3. Steroid-induced DM - Continue Novolog sliding scale 4. History of seizures secondary to metastatic brain disease - Continue Keppra 5. HTN - Continue Vasotec 6. Hypothyroidism - Continue Synthroid 7. Anemia secondary to chemotherapy, cancer, infection 8. Thrombocytopenia secondary to chemotherapy - Resolved 9. Pseudohyponatremia secondary to hyperglycemia - Resolved 10. Constipation, opioid-induced - Continue Miralax 11. Partial SBO - Resolved 12. Obesity with BMI 38.6 13. Disposition - Plan for transfer to [place] - awaiting insurance authorization
[2017-09-26] MEDS: LIDOCAINE PATCH REMOVAL MC SCH (22:26)
[2017-09-27] MEDS: DOCUSATE SODIUM 100 MG CAPSULE (FP) PO SCH ×3 (07:12→21:44)
[2017-09-27] MEDS: DEXAMETHASONE 4 MG TABLET (FP) PO SCH ×3 (07:12→21:43)
[2017-09-27] MEDS: INSULIN SLIDING SCALE (NOVOLOG) 1 VIAL SQ SCH ×3 (07:13→21:44)
[2017-09-27] MEDS: LEVOTHYROXINE NA 150 MCG TABLET PO SCH (07:13)
[2017-09-27] MEDS: MUPIROCIN CA 2% TOPICAL CREAM 15 GM TUBE TP SCH ×3 (07:13→21:43)
--- NOTE | 2017-09-27 07:49 | PN ---
Physical Exam: SUBJECTIVE: Patient seen and examined No acute events overnight. Complains of mild abdominal pain. Otherwise feels well OBJECTIVE: Vital Signs Period Temp Pulse Resp BP Sys/[place] Pulse Ox Last 24 Hr 97.4 F-98.0 F 58-64 16-18 105-119/54-67 99-100 GENERAL: Awake, alert, and fully oriented. No acute distress. HEAD: +scattered bleeding, excorciated lesions on face with 1 on left forehead EYES: Pupils equal, round and reactive to light, extraocular movements intact, sclera anicteric, conjunctiva clear. EARS, NOSE, THROAT: Oropharynx clear without exudates. Moist mucous membranes. NECK: Normal range of motion, supple, L TLC LUNGS: Breath sounds equal, clear to auscultation bilaterally. No wheezes, and no crackles. No accessory muscle use. HEART: Regular rate and rhythm, normal S1 and S2 without murmur, rub or gallop. ABDOMEN: Soft, obese, Diffuse tenderness, +mildly distended, normoactive bowel sounds, no guarding, no rebound, no masses. MUSCULOSKELETAL: +TTP R shoulder with limited active and passive ROM LOWER EXTREMITIES: 2+ posterior tibial pulses, warm, well-perfused. +LLE calf tenderness NEUROLOGICAL: Cranial nerves II-XII intact. Right arm extension 4/5. Shoulder abduction 4/5. Left arm 5/5 at shoulder, elbow, and hand optometric assistant. Decreased ROM of right shoulder. SKIN: +scattered ulcerative nodules throughout body (face, arms, back, legs) with few purulent draining furuncles. No new lesions Laboratory Results - last 24 hr 09/26/17 09/26/17 09/26/17 06:26 12:13 17:18 POC Glucometer 156 186 232 09/26/17 22:23 POC Glucometer 133 Active Medications Generic Name Dose Route Start Last Admin Trade Name Freq PRN Reason Stop Dose Admin Dexamethasone 2 mg 09/15/17 07:20 09/27/17 07:12 Decadron - PO 2 mg TID DIAN Administration Docusate Sodium 100 mg 09/24/17 22:00 09/27/17 07:12 Colace - PO 100 mg TID DIAN Administration Enalapril Maleate 20 mg 09/11/17 10:00 09/26/17 10:38 Vasotec - PO 20 mg DAILY DIAN Administration IV Flush 4 ml 09/10/17 14:43 09/16/17 07:22 Triple Lumen Flush IVPUSH 4 ml PRN PRN Administration Protocol Daptomycin 750 mg/ Sodium 100 mls @ 50 mls/hr 09/10/17 17:00 09/26/17 17:19 Chloride IVPB 50 mls/hr Q24H DIAN Administration Protocol Insulin Aspart 0 vial 09/21/17 16:30 09/27/17 07:13 Novolog Vial Sliding Scale - SQ Not Given ACHS DIAN Protocol Levetiracetam 500 mg/ 750 mg 09/23/17 10:00 09/26/17 22:26 Levetiracetam 250 mg PO 750 mg BID DIAN Administration Levothyroxine Sodium 150 mcg 09/11/17 07:00 09/27/17 07:13 Synthroid - PO 150 mcg DAILY@0700 DIAN Administration Lidocaine 1 patch 09/11/17 10:00 09/26/17 10:39 Lidoderm Patch - TP 1 patch DAILY DIAN Administration Miscellaneous 1 each 09/10/17 14:43 09/15/17 23:22 Duragesic Patch Waste TD 1 each PRN PRN Administration PAIN Miscellaneous 1 each 09/10/17 22:00 09/26/17 22:26 Lidoderm Patch Removal MC 1 each DAILY@2200 DIAN Administration Mupirocin 1 applic 09/10/17 22:00 09/27/17 07:13 Bactroban 2% Cream - TP 1 applic TID DIAN Administration Ondansetron HCl 4 mg 09/10/17 14:38 Zofran Injection IVPUSH Q6H PRN NAUSEA AND/OR VOMITING Oxycodone HCl 5 mg 09/20/17 21:32 09/26/17 22:26 Roxicodone - PO 5 mg Q4H PRN Administration PAIN LEVEL 1-5 Pantoprazole Sodium 40 mg 09/13/17 10:00 09/26/17 10:38 Protonix - PO 40 mg DAILY DIAN Administration Polyethylene Glycol 17 gm 09/10/17 17:23 09/26/17 10:39 Miralax (For Daily Use) - PO Not Given DAILY DIAN ASSESSMENT/PLAN: 61 year old F with pmh of 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 last bcx drawn 09/18 -Continue Daptomycin 750 mg q24h day 17. Will need care home abx per ID (4-5 more weeks of Daptomycin) -ID on board #Metastatic Colon Cancer -Decadron 2mg TID -Pain control with fentanyl, oxycodone, and lidocaine patch -MRI of tibia-- bone mets -Continue Keppra 750 mg bid for seizure ppx given brain mets #Abdominal pain, Partial vs complete sbo,, improved -Lactic acid normal -Surgery consulted, Dr. Cohen -Will not proceed with surgical intervention -simethicone prn #DM, newly diagnosed -ISS q6h -D/c levemir #HTN -Continue enalapril #FEN/GI -no ivf -wnl -Soft Diet with glucerna tid #PPx -Scds -Protonix Overall prognosis is quite poor. Patient awaiting placement at [place]. DNI --not DNR. Visit type - Emergency Visit Emergency Visit: Yes ED Registration Date: 09/07/17 Care time: The patient presented to the Emergency Department on the above date and was hospitalized for further evaluation of their emergent condition. - New Patient This patient is new to me today: No - Critical Care Critical Care patient: No
[2017-09-27] MEDS: LIDOCAINE 5% TOPICAL PATCH TP SCH (10:52)
[2017-09-27] MEDS: PANTOPRAZOLE 40 MG TABLET (FP) PO SCH (10:54)
[2017-09-27] MEDS: POLYETHYLENE GLYCOL 3350 119 GM BTL PO SCH (10:55)
[2017-09-27] MEDS: ENALAPRIL MALEATE 10 MG TABLET (FP) PO SCH (10:59)
[2017-09-27] MEDS: oxyCODONE HCL 5 MG TABLET PO PRN ×2 (11:04→23:00)
--- NOTE | 2017-09-27 13:00 | PN ---
Teaching Attending Note Name of Resident: Burke Vuong ATTENDING PHYSICIAN STATEMENT I saw and evaluated the patient. I reviewed the resident's note and discussed the case with the resident. I agree with the resident's findings and plan as documented. SUBJECTIVE: Patient complains of abdominal discomfort. OBJECTIVE: Vital Signs Period Temp Pulse Resp BP Sys/[place] Pulse Ox Last 24 Hr 97.4 F-97.9 F 58-61 16-18 105-119/54-67 99 HEART: S1S2, RRR LUNGS: Clear ABDOMEN: Obese, soft, non-tender, non-distended, normal BS EXTREMITIES: No edema Laboratory Results - last 24 hr 09/26/17 09/26/17 09/26/17 06:26 17:18 22:23 POC Glucometer 156 232 133 09/27/17 07:11 POC Glucometer 134 Current Medications Generic Name Dose Route Start Last Admin Trade Name Freq PRN Reason Stop Dose Admin Dexamethasone 2 mg 09/15/17 07:20 09/27/17 07:12 Decadron - PO 2 mg TID DIAN Administration Docusate Sodium 100 mg 09/24/17 22:00 09/27/17 07:12 Colace - PO 100 mg TID DIAN Administration Enalapril Maleate 20 mg 09/11/17 10:00 09/27/17 10:59 Vasotec - PO Not Given DAILY DIAN IV Flush 4 ml 09/10/17 14:43 09/16/17 07:22 Triple Lumen Flush IVPUSH 4 ml PRN PRN Administration Protocol Daptomycin 750 mg/ Sodium 100 mls @ 50 mls/hr 09/10/17 17:00 09/26/17 17:19 Chloride IVPB 50 mls/hr Q24H DIAN Administration Protocol Insulin Aspart 0 vial 09/27/17 10:00 Novolog Vial Sliding Scale - SQ BID DIAN Protocol Levetiracetam 500 mg/ 750 mg 09/23/17 10:00 09/27/17 10:53 Levetiracetam 250 mg PO 750 mg BID DIAN Administration Levothyroxine Sodium 150 mcg 09/11/17 07:00 09/27/17 07:13 Synthroid - PO 150 mcg DAILY@0700 DIAN Administration Lidocaine 1 patch 09/11/17 10:00 09/27/17 10:52 Lidoderm Patch - TP 1 patch DAILY DIAN Administration Miscellaneous 1 each 09/10/17 14:43 09/15/17 23:22 Duragesic Patch Waste TD 1 each PRN PRN Administration PAIN Miscellaneous 1 each 09/10/17 22:00 09/26/17 22:26 Lidoderm Patch Removal MC 1 each DAILY@2200 DIAN Administration Mupirocin 1 applic 09/10/17 22:00 09/27/17 07:13 Bactroban 2% Cream - TP 1 applic TID DIAN Administration Ondansetron HCl 4 mg 09/10/17 14:38 Zofran Injection IVPUSH Q6H PRN NAUSEA AND/OR VOMITING Oxycodone HCl 5 mg 09/20/17 21:32 09/27/17 11:04 Roxicodone - PO 5 mg Q4H PRN Administration PAIN LEVEL 1-5 Pantoprazole Sodium 40 mg 09/13/17 10:00 09/27/17 10:54 Protonix - PO 40 mg DAILY DIAN Administration Polyethylene Glycol 17 gm 09/10/17 17:23 09/27/17 10:55 Miralax (For Daily Use) - PO Not Given DAILY DIAN Simethicone 80 mg 09/27/17 09:44 Mylicon - PO QID PRN GAS ASSESSMENT AND PLAN: This is a 61 year old woman with a history of HTN, colon cancer with metastases to brain and lungs, seizures, hypothyroidism who presented to the ED with worsening skin lesions. 1. MRSA bacteremia - On Daptomycin (day ) 2. Colon cancer with metastases to brain, lungs, bone - Continue Decadron, Lidoderm patch, Duragesic patch, oxycodone as needed 3. Steroid-induced DM - Continue Novolog sliding scale 4. History of seizures secondary to metastatic brain disease - Continue Keppra 5. HTN - Continue Vasotec 6. Hypothyroidism - Continue Synthroid 7. Anemia secondary to chemotherapy, cancer, infection 8. Thrombocytopenia secondary to chemotherapy - Resolved 9. Pseudohyponatremia secondary to hyperglycemia - Resolved 10. Constipation, opioid-induced - Continue Colace, Miralax 11. Partial SBO - Resolved 12. Obesity with BMI 38.6 13. Disposition - Awaiting insurance authorization for transfer to [place]
--- NOTE | 2017-09-27 13:46 | PN ---
Progress Note, Physician Chief Complaint: Events noted Not in distress History of Present Illness: Patient was seen and examined. Awake and alert. Chart was reviewed Denies chest pain, SOB or palpitations - Current Medication List Current Medications: Active Medications Dexamethasone (Decadron -) 2 mg PO TID [facility] Last Admin: 09/27/17 07:12 Dose: 2 mg Docusate Sodium (Colace -) 100 mg PO TID [facility] Last Admin: 09/27/17 07:12 Dose: 100 mg Enalapril Maleate (Vasotec -) 20 mg PO DAILY [facility] Last Admin: 09/27/17 10:59 Dose: Not Given IV Flush (Triple Lumen Flush) 4 ml IVPUSH PRN PRN PRN Reason: Protocol Last Admin: 09/16/17 07:22 Dose: 4 ml Daptomycin 750 mg/ Sodium (Chloride) 100 mls @ 50 mls/hr IVPB Q24H [facility] PRN Reason: Protocol Last Admin: 09/26/17 17:19 Dose: 50 mls/hr Insulin Aspart (Novolog Vial Sliding Scale -) 0 vial SQ BID [facility] PRN Reason: Protocol Levetiracetam 500 mg/ (Levetiracetam 250 mg) 750 mg PO BID [facility] Last Admin: 09/27/17 10:53 Dose: 750 mg Levothyroxine Sodium (Synthroid -) 150 mcg PO DAILY@0700 [facility] Last Admin: 09/27/17 07:13 Dose: 150 mcg Lidocaine (Lidoderm Patch -) 1 patch TP DAILY [facility] Last Admin: 09/27/17 10:52 Dose: 1 patch Miscellaneous (Duragesic Patch Waste) 1 each TD PRN PRN PRN Reason: PAIN Last Admin: 09/15/17 23:22 Dose: 1 each Miscellaneous (Lidoderm Patch Removal) 1 each MC DAILY@2200 [facility] Last Admin: 09/26/17 22:26 Dose: 1 each Mupirocin (Bactroban 2% Cream -) 1 applic TP TID [facility] Last Admin: 09/27/17 07:13 Dose: 1 applic Ondansetron HCl (Zofran Injection) 4 mg IVPUSH Q6H PRN PRN Reason: NAUSEA AND/OR VOMITING Pantoprazole Sodium (Protonix -) 40 mg PO DAILY [facility] Last Admin: 09/27/17 10:54 Dose: 40 mg Polyethylene Glycol (Miralax (For Daily Use) -) 17 gm PO DAILY [facility] Last Admin: 09/27/17 10:55 Dose: Not Given Simethicone (Mylicon -) 80 mg PO QID PRN PRN Reason: GAS - Objective Vital Signs: Vital Signs Temperature 97.4 F L 09/27/17 13:34 Pulse Rate 67 09/27/17 13:34 Respiratory Rate 20 09/27/17 13:34 Blood Pressure 126/58 09/27/17 13:34 O2 Sat by Pulse Oximetry (%) 99 09/26/17 21:00 HENT: Yes: Atraumatic Neck: Yes: Supple Cardiovascular: Yes: Regular Rate and Rhythm, S1, S2 Respiratory: Yes: Diminished Gastrointestinal: Yes: Normal Bowel Sounds, Soft. No: Tenderness Edema: No Problem List - Problems (1) Bacteremia Code(s): R78.81 - BACTEREMIA (2) Colon cancer metastasized to multiple sites Code(s): C18.9 - MALIGNANT NEOPLASM OF COLON, UNSPECIFIED (3) Hypertension Code(s): I10 - ESSENTIAL (PRIMARY) HYPERTENSION Qualifiers: Hypertension type: essential hypertension Qualified Code(s): I10 - Essential (primary) hypertension (4) Hypothyroidism Code(s): E03.9 - HYPOTHYROIDISM, UNSPECIFIED Qualifiers: Hypothyroidism type: unspecified Qualified Code(s): E03.9 - Hypothyroidism , unspecified (5) Seizure Code(s): R56.9 - UNSPECIFIED CONVULSIONS Assessment/Plan 1. MRSA bacteremia 2. Furuncles s/p I & D 3. Metastatic colon cancer to lungs and brain post chemotherapy 4. Type 2 diabetes mellitus 5- HTN 6. Hypothyroidism PLAN: 1. Continue Vasotec. Continue steroids with GI protection and seizure prophylaxis 2. DVT prophylaxis 3. Continue supportive care. Antibiotics Overall poor prognosis Alex Lin MD
[2017-09-27] MEDS: SIMETHICONE 80 MG TAB.CHEW (FP) PO PRN (15:28)
[2017-09-27] MEDS: DAPTOMYCIN 750 MG in SODIUM CHLORIDE 100 ML IVPB SCH (17:42)
[2017-09-27] MEDS: LIDOCAINE PATCH REMOVAL MC SCH (21:44)
[2017-09-28] MEDS: DEXAMETHASONE 4 MG TABLET (FP) PO SCH ×3 (06:39→22:21)
[2017-09-28] MEDS: DOCUSATE SODIUM 100 MG CAPSULE (FP) PO SCH ×3 (06:39→22:21)
[2017-09-28] MEDS: LEVOTHYROXINE NA 150 MCG TABLET PO SCH (06:40)
[2017-09-28] MEDS: MUPIROCIN CA 2% TOPICAL CREAM 15 GM TUBE TP SCH ×3 (06:41→22:21)
--- NOTE | 2017-09-28 09:58 | PN ---
Progress Note, Physician History of Present Illness: Remains afebrile, no complaints. - Current Medication List Current Medications: Active Medications Dexamethasone (Decadron -) 2 mg PO TID [facility] Last Admin: 09/28/17 06:39 Dose: 2 mg Docusate Sodium (Colace -) 100 mg PO TID [facility] Last Admin: 09/28/17 06:39 Dose: 100 mg Enalapril Maleate (Vasotec -) 20 mg PO DAILY [facility] Last Admin: 09/27/17 10:59 Dose: Not Given IV Flush (Triple Lumen Flush) 4 ml IVPUSH PRN PRN PRN Reason: Protocol Last Admin: 09/16/17 07:22 Dose: 4 ml Daptomycin 750 mg/ Sodium (Chloride) 100 mls @ 50 mls/hr IVPB Q24H [facility] PRN Reason: Protocol Last Admin: 09/27/17 17:42 Dose: 50 mls/hr Insulin Aspart (Novolog Vial Sliding Scale -) 0 vial SQ BID [facility] PRN Reason: Protocol Last Admin: 09/27/17 21:44 Dose: Not Given Levetiracetam 500 mg/ (Levetiracetam 250 mg) 750 mg PO BID [facility] Last Admin: 09/27/17 21:43 Dose: 750 mg Levothyroxine Sodium (Synthroid -) 150 mcg PO DAILY@0700 [facility] Last Admin: 09/28/17 06:40 Dose: 150 mcg Lidocaine (Lidoderm Patch -) 1 patch TP DAILY [facility] Last Admin: 09/27/17 10:52 Dose: 1 patch Miscellaneous (Duragesic Patch Waste) 1 each TD PRN PRN PRN Reason: PAIN Last Admin: 09/15/17 23:22 Dose: 1 each Miscellaneous (Lidoderm Patch Removal) 1 each MC DAILY@2200 [facility] Last Admin: 09/27/17 21:44 Dose: 1 each Mupirocin (Bactroban 2% Cream -) 1 applic TP TID [facility] Last Admin: 09/28/17 06:41 Dose: 1 applic Ondansetron HCl (Zofran Injection) 4 mg IVPUSH Q6H PRN PRN Reason: NAUSEA AND/OR VOMITING Oxycodone HCl (Roxicodone -) 5 mg PO Q6H PRN PRN Reason: PAIN LEVEL 6-10 Last Admin: 09/27/17 23:00 Dose: 5 mg Pantoprazole Sodium (Protonix -) 40 mg PO DAILY [facility] Last Admin: 09/27/17 10:54 Dose: 40 mg Polyethylene Glycol (Miralax (For Daily Use) -) 17 gm PO DAILY [facility] Last Admin: 09/27/17 10:55 Dose: Not Given Simethicone (Mylicon -) 80 mg PO QID PRN PRN Reason: GAS Last Admin: 09/27/17 15:28 Dose: 80 mg - Objective Vital Signs: Vital Signs Temperature 98.1 F 09/28/17 01:41 Pulse Rate 60 09/28/17 01:41 Respiratory Rate 18 09/28/17 01:41 Blood Pressure 116/68 09/28/17 01:41 O2 Sat by Pulse Oximetry (%) 99 09/27/17 21:00 Constitutional: Yes: No Distress, Calm Neck: Yes: Supple Cardiovascular: Yes: Regular Rate and Rhythm Respiratory: Yes: Regular, Diminished Gastrointestinal: Yes: Normal Bowel Sounds, Soft, Abdomen, Obese Edema: No Labs: CBC, BMP 09/25/17 06:00 09/25/17 06:00 INR, PTT INR 1.07 (0.82-1.09) 09/07/17 17:38 Problem List - Problems (1) MRSA bacteremia Code(s): R78.81 - BACTEREMIA (2) Colon cancer metastasized to multiple sites Code(s): C18.9 - MALIGNANT NEOPLASM OF COLON, UNSPECIFIED (3) Brain metastases Code(s): C79.31 - SECONDARY MALIGNANT NEOPLASM OF BRAIN (4) Hypothyroidism Code(s): E03.9 - HYPOTHYROIDISM, UNSPECIFIED Qualifiers: Hypothyroidism type: unspecified Qualified Code(s): E03.9 - Hypothyroidism , unspecified (5) Hypertension Code(s): I10 - ESSENTIAL (PRIMARY) HYPERTENSION Qualifiers: Hypertension type: essential hypertension Qualified Code(s): I10 - Essential (primary) hypertension (6) Pyogenic skin abscess due to bacteria Code(s): L02.91 - CUTANEOUS ABSCESS, UNSPECIFIED; B96.89 - OTH BACTERIAL AGENTS THE CAUSE OF DISEASES CLASSD [id number] Assessment/Plan 1. MRSA bacteremia 2. Furuncles s/p I & D 3. Metastatic colon cancer to lungs and brain post chemotherapy 4. Type 2 diabetes mellitus 5- HTN 6. Hypothyroidism PLAN: 1. Continue Vasotec 20 qd. Continue steroids with GI protection and seizure prophylaxis 2. DVT prophylaxis 3. Continue antibiotic course per ID. 4. D/c planning to [place]
[2017-09-28] MEDS: LIDOCAINE 5% TOPICAL PATCH TP SCH (11:16)
[2017-09-28] MEDS: SIMETHICONE 80 MG TAB.CHEW (FP) PO PRN (11:17)
[2017-09-28] MEDS: POLYETHYLENE GLYCOL 3350 119 GM BTL PO SCH (11:17)
[2017-09-28] MEDS: ENALAPRIL MALEATE 10 MG TABLET (FP) PO SCH (11:18)
[2017-09-28] MEDS: PANTOPRAZOLE 40 MG TABLET (FP) PO SCH (11:18)
[2017-09-28] MEDS: INSULIN SLIDING SCALE (NOVOLOG) 1 VIAL SQ SCH ×2 (11:19→22:17)
[2017-09-28] MEDS ORDERED: PT OWN MED DRAWER 7, Y5N ONE ×2 (11:21→20:41)
[2017-09-28] MEDS: oxyCODONE HCL 5 MG TABLET PO PRN ×2 (11:22→22:20)
[2017-09-28] MEDS: DAPTOMYCIN 750 MG in SODIUM CHLORIDE 100 ML IVPB SCH (17:03)
--- NOTE | 2017-09-28 19:03 | PN ---
Physical Exam: SUBJECTIVE: Patient seen and examined. No complaints. OBJECTIVE: Vital Signs Period Temp Pulse Resp BP Sys/[place] Pulse Ox Last 24 Hr 97.8 F-98.2 F 59-67 18-20 109-127/57-68 99-99 GENERAL: The patient is awake, alert, and fully oriented, in no acute distress. LUNGS: Breath sounds equal, clear to auscultation bilaterally, no wheezes, no crackles, no accessory muscle use. HEART: Regular rate and rhythm, S1, S2 without murmur, rub or gallop. ABDOMEN: Obese, soft, nontender, nondistended, normoactive bowel sounds, no guarding, no rebound, no hepatosplenomegaly, no masses. EXTREMITIES: 2+ pulses, warm, well-perfused, no edema. Laboratory Results - last 24 hr 09/27/17 09/28/17 09/28/17 21:42 06:38 11:10 POC Glucometer 197 120 156 Active Medications Generic Name Dose Route Start Last Admin Trade Name Freq PRN Reason Stop Dose Admin Dexamethasone 2 mg 09/15/17 07:20 09/28/17 13:48 Decadron - PO 2 mg TID DIAN Administration Docusate Sodium 100 mg 09/24/17 22:00 09/28/17 13:48 Colace - PO Not Given TID DIAN Enalapril Maleate 20 mg 09/11/17 10:00 09/28/17 11:18 Vasotec - PO Not Given DAILY [facility] IV Flush 4 ml 09/10/17 14:43 09/16/17 07:22 Triple Lumen Flush IVPUSH 4 ml PRN PRN Administration Protocol Daptomycin 750 mg/ Sodium 100 mls @ 50 mls/hr 09/10/17 17:00 09/28/17 17:03 Chloride IVPB 50 mls/hr Q24H DIAN Administration Protocol Insulin Aspart 0 vial 09/27/17 10:00 09/28/17 11:19 Novolog Vial Sliding Scale - SQ Not Given BID [facility] Protocol Levetiracetam 500 mg/ 750 mg 09/23/17 10:00 09/28/17 11:22 Levetiracetam 250 mg PO 750 mg BID [facility] Administration Levothyroxine Sodium 150 mcg 09/11/17 07:00 09/28/17 06:40 Synthroid - PO 150 mcg DAILY@0700 [facility] Administration Lidocaine 1 patch 09/11/17 10:00 09/28/17 11:16 Lidoderm Patch - TP 1 patch DAILY [facility] Administration Miscellaneous 1 each 09/10/17 14:43 09/15/17 23:22 Duragesic Patch Waste TD 1 each PRN PRN Administration PAIN Miscellaneous 1 each 09/10/17 22:00 09/27/17 21:44 Lidoderm Patch Removal MC 1 each DAILY@2200 [facility] Administration Mupirocin 1 applic 09/10/17 22:00 09/28/17 13:48 Bactroban 2% Cream - TP 1 applic TID [facility] Administration Ondansetron HCl 4 mg 09/10/17 14:38 Zofran Injection IVPUSH Q6H PRN NAUSEA AND/OR VOMITING Oxycodone HCl 5 mg 09/27/17 22:50 09/28/17 11:22 Roxicodone - PO 5 mg Q6H PRN Administration PAIN LEVEL 6-10 Pantoprazole Sodium 40 mg 09/13/17 10:00 09/28/17 11:18 Protonix - PO 40 mg DAILY [facility] Administration Polyethylene Glycol 17 gm 09/10/17 17:23 09/28/17 11:17 Miralax (For Daily Use) - PO Not Given DAILY [facility] Simethicone 80 mg 09/27/17 09:44 09/28/17 11:17 Mylicon - PO 80 mg QID PRN Administration GAS ASSESSMENT/PLAN: This is a 61 year old woman with a history of HTN, colon cancer with metastases to brain and lungs, seizures, hypothyroidism who presented to the ED with worsening skin lesions. 1. MRSA bacteremia - On Daptomycin (day ) 2. Colon cancer with metastases to brain, lungs, bone - Continue Decadron, Lidoderm patch, Duragesic patch, oxycodone as needed 3. Steroid-induced DM - Continue Novolog sliding scale 4. History of seizures secondary to metastatic brain disease - Continue Keppra 5. HTN - Continue Vasotec 6. Hypothyroidism - Continue Synthroid 7. Anemia secondary to chemotherapy, cancer, infection 8. Thrombocytopenia secondary to chemotherapy - Resolved 9. Pseudohyponatremia secondary to hyperglycemia - Resolved 10. Constipation, opioid-induced - Continue Colace, Miralax 11. Partial SBO - Resolved 12. Obesity with BMI 38.6 13. Disposition - Awaiting insurance authorization for transfer to [place] Visit type - Emergency Visit Emergency Visit: Yes ED Registration Date: 09/07/17 Care time: The patient presented to the Emergency Department on the above date and was hospitalized for further evaluation of their emergent condition. - New Patient This patient is new to me today: No - Critical Care Critical Care patient: No - Discharge Referral Referred to [facility] No
[2017-09-28] MEDS: LIDOCAINE PATCH REMOVAL MC SCH (22:21)
[2017-09-29] MEDS: oxyCODONE HCL 5 MG TABLET PO PRN ×3 (06:33→20:31)
[2017-09-29] MEDS: DEXAMETHASONE 4 MG TABLET (FP) PO SCH ×3 (06:33→23:05)
[2017-09-29] MEDS: DOCUSATE SODIUM 100 MG CAPSULE (FP) PO SCH ×3 (06:34→23:05)
[2017-09-29] MEDS: LEVOTHYROXINE NA 150 MCG TABLET PO SCH (06:34)
[2017-09-29] MEDS: MUPIROCIN CA 2% TOPICAL CREAM 15 GM TUBE TP SCH ×3 (06:34→23:00)
[2017-09-29] MEDS ORDERED: PT OWN MED DRAWER 7, Y5N ONE ×3 (06:42→22:58)
[2017-09-29 08:15] LABS: HEMATOCRIT 26.7 % (32.4-45.2); HEMOGLOBIN 9.1 GM/dL (10.7-15.3); MCH 30.6 pg (25.7-33.7); MCHC 34.2 g/dl (32.0-36.0); MEAN CELL VOLUME 89.5 fl (80-96); MEAN PLT VOLUME 7.5 fl (7.5-11.1); PLATELET COUNT 182 K/MM3 (134-434); RBC 2.98 M/mm3 (3.60-5.2); RDW 19.7 % (11.6-15.6); WHITE BLOOD COUNT 10.3 K/mm3 (4.0-10.0)
[2017-09-29 08:18] LABS: ANION GAP 12 (8-16); BLOOD UREA NITROGEN 23 mg/dL (7-18); CALCIUM 8.6 mg/dL (8.5-10.1); CHLORIDE 100 mmol/L (98-107); CO2 24 mmol/L (21-32); CREATININE 0.6 mg/dL (0.55-1.02); GLUCOSE,RANDOM 100 mg/dL (74-106); POTASSIUM 4.5 mmol/L (3.5-5.1); SODIUM 136 mmol/L (136-145)
[2017-09-29] MEDS: LIDOCAINE 5% TOPICAL PATCH TP SCH (10:29)
[2017-09-29] MEDS: SIMETHICONE 80 MG TAB.CHEW (FP) PO PRN (10:29)
[2017-09-29] MEDS: PANTOPRAZOLE 40 MG TABLET (FP) PO SCH (10:29)
[2017-09-29] MEDS: ENALAPRIL MALEATE 10 MG TABLET (FP) PO SCH (10:30)
[2017-09-29] MEDS: POLYETHYLENE GLYCOL 3350 119 GM BTL PO SCH (10:30)
--- NOTE | 2017-09-29 10:33 | PN ---
Physical Exam: SUBJECTIVE: Patient seen and examined No acute events overnight. Feeling well this morning. OBJECTIVE: Vital Signs Period Temp Pulse Resp BP Sys/[place] Pulse Ox Last 24 Hr 97.3 F-98.1 F 56-67 18-20 109-133/57-73 98 GENERAL: Awake, alert, and fully oriented. No acute distress. HEAD: +scattered bleeding, excorciated lesions on face with 1 on left forehead EYES: Pupils equal, round and reactive to light, extraocular movements intact, sclera anicteric, conjunctiva clear. EARS, NOSE, THROAT: Oropharynx clear without exudates. Moist mucous membranes. NECK: Normal range of motion, supple, L TLC LUNGS: Breath sounds equal, clear to auscultation bilaterally. No wheezes, and no crackles. No accessory muscle use. HEART: Regular rate and rhythm, normal S1 and S2 without murmur, rub or gallop. ABDOMEN: Soft, obese, Diffuse tenderness, +mildly distended, normoactive bowel sounds, no guarding, no rebound, no masses. MUSCULOSKELETAL: +TTP R shoulder with limited active and passive ROM LOWER EXTREMITIES: 2+ posterior tibial pulses, warm, well-perfused. +LLE calf tenderness NEUROLOGICAL: Cranial nerves II-XII intact. Right arm extension 4/5. Shoulder abduction 4/5. 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 Decreased ROM of right shoulder. SKIN: +scattered ulcerative nodules throughout body (face, arms, back, legs) with few purulent draining furuncles. No new lesions Laboratory Results - last 24 hr 09/28/17 09/28/17 09/29/17 11:10 22:17 06:15 WBC 10.3 H D RBC 2.98 L Hgb 9.1 L D Hct 26.7 L MCV 89.5 MCH 30.6 MCHC 34.2 RDW 19.7 H Plt Count 182 D MPV 7.5 Neutrophils % [employer] Lymphocytes % [employer] Monocytes % [employer] Eosinophils % [employer] Basophils % [employer] Sodium Potassium Chloride Carbon Dioxide Anion Gap BUN Creatinine POC Glucometer 156 124 Random Glucose Calcium 09/29/17 06:15 WBC RBC Hgb Hct MCV MCH MCHC RDW Plt Count MPV Neutrophils % Lymphocytes % Monocytes % Eosinophils % Basophils % Sodium 136 Potassium 4.5 Chloride 100 Carbon Dioxide 24 Anion Gap 12 BUN 23 H Creatinine 0.6 POC Glucometer Random Glucose 100 Calcium 8.6 Active Medications Generic Name Dose Route Start Last Admin Trade Name Freq PRN Reason Stop Dose Admin Dexamethasone 2 mg 09/15/17 07:20 09/29/17 06:33 Decadron - PO 2 mg TID DIAN Administration Docusate Sodium 100 mg 09/24/17 22:00 09/29/17 06:34 Colace - PO 100 mg TID DIAN Administration Enalapril Maleate 20 mg 09/11/17 10:00 09/28/17 11:18 Vasotec - PO Not Given DAILY DIAN IV Flush 4 ml 09/10/17 14:43 09/16/17 07:22 Triple Lumen Flush IVPUSH 4 ml PRN PRN Administration Protocol Insulin Aspart 0 vial 09/27/17 10:00 09/28/17 22:17 Novolog Vial Sliding Scale - SQ Not Given BID [facility] Protocol Levetiracetam 500 mg/ 750 mg 09/23/17 10:00 09/28/17 22:20 Levetiracetam 250 mg PO 750 mg BID [facility] Administration Levothyroxine Sodium 150 mcg 09/11/17 07:00 09/29/17 06:34 Synthroid - PO 150 mcg DAILY@0700 [facility] Administration Lidocaine 1 patch 09/11/17 10:00 09/28/17 11:16 Lidoderm Patch - TP 1 patch DAILY [facility] Administration Miscellaneous 1 each 09/10/17 14:43 09/15/17 23:22 Duragesic Patch Waste TD 1 each PRN PRN Administration PAIN Miscellaneous 1 each 09/10/17 22:00 09/28/17 22:21 Lidoderm Patch Removal MC 1 each DAILY@2200 [facility] Administration Mupirocin 1 applic 09/10/17 22:00 09/29/17 06:34 Bactroban 2% Cream - TP 1 applic TID [facility] Administration Ondansetron HCl 4 mg 09/10/17 14:38 Zofran Injection IVPUSH Q6H PRN NAUSEA AND/OR VOMITING Oxycodone HCl 5 mg 09/27/17 22:50 09/29/17 06:33 Roxicodone - PO 5 mg Q6H PRN Administration PAIN LEVEL 6-10 Pantoprazole Sodium 40 mg 09/13/17 10:00 09/28/17 11:18 Protonix - PO 40 mg DAILY [facility] Administration Polyethylene Glycol 17 gm 09/10/17 17:23 09/28/17 11:17 Miralax (For Daily Use) - PO Not Given DAILY [facility] Simethicone 80 mg 09/27/17 09:44 09/28/17 11:17 Mylicon - PO 80 mg QID PRN Administration GAS ASSESSMENT/PLAN: 61 year old F with pmh of 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 last bcx drawn 09/18 -Continue Daptomycin 750 mg q24h day 20. Will need group home abx per ID (4 more weeks of Daptomycin) -ID on board #Metastatic Colon Cancer -Decadron 2mg TID -Pain control with fentanyl, oxycodone, and lidocaine patch -MRI of tibia-- bone mets -Continue Keppra 750 mg bid for seizure ppx given brain mets #Abdominal pain, Partial vs complete sbo,, improved -Lactic acid normal -Surgery consulted, Dr. Cohen -Will not proceed with surgical intervention -simethicone prn #DM, newly diagnosed -ISS q6h -D/c levemir #HTN -Continue enalapril #FEN/GI -no ivf -wnl -Soft Diet with glucerna tid #PPx -Scds -Protonix Overall prognosis is quite poor. Patient awaiting insurance auth for [place]. DNI --not DNR. Visit type - Emergency Visit Emergency Visit: Yes ED Registration Date: 09/07/17 Care time: The patient presented to the Emergency Department on the above date and was hospitalized for further evaluation of their emergent condition. - New Patient This patient is new to me today: No - Critical Care Critical Care patient: No
[2017-09-29] MEDS ORDERED: DAPTOMYCIN 750 MG in SODIUM CHLORIDE 100 ML IVPB SCH (11:45)
[2017-09-29 12:24] LABS: MACROCYTOSIS 1+; TEAR DROP CELLS 1+
[2017-09-29] MEDS: INSULIN SLIDING SCALE (NOVOLOG) 1 VIAL SQ SCH ×2 (13:16→23:05)
[2017-09-29] MEDS: DAPTOMYCIN 750 MG in SODIUM CHLORIDE 100 ML IVPB SCH (18:03)
--- NOTE | 2017-09-29 18:31 | PN ---
Teaching Attending Note Name of Resident: Burke Vuong ATTENDING PHYSICIAN STATEMENT I saw and evaluated the patient. I reviewed the resident's note and discussed the case with the resident. I agree with the resident's findings and plan as documented. SUBJECTIVE: Patient has no complaints. OBJECTIVE: Vital Signs Period Temp Pulse Resp BP Sys/[place] Pulse Ox Last 24 Hr 97.3 F-98.6 F 56-68 18-20 102-133/54-73 98-98 HEART: S1S2, RRR LUNGS: Clear ABDOMEN: Obese, soft, non-tender, non-distended, normal BS EXTREMITIES: No edema Laboratory Results - last 24 hr 09/28/17 09/29/17 09/29/17 22:17 06:15 06:15 WBC 10.3 H D RBC 2.98 L Hgb 9.1 L D Hct 26.7 L MCV 89.5 MCH 30.6 MCHC 34.2 RDW 19.7 H Plt Count 182 D MPV 7.5 Total Counted 100 Neutrophils % [employer] Neutrophils % (Manual) 75.0 Band Neutrophils % 6.0 Lymphocytes % [employer] Lymphocytes % (Manual) 12.0 D Monocytes % [employer] Monocytes % (Manual) 5 D Eosinophils % [employer] Basophils % [employer] Metamyelocytes 1 D Polychromasia 1+ Microcytosis 1+ Macrocytosis 1+ Tear Drop Cells 1+ Sodium 136 Potassium 4.5 Chloride 100 Carbon Dioxide 24 Anion Gap 12 BUN 23 H Creatinine 0.6 POC Glucometer 124 Random Glucose 100 Calcium 8.6 09/29/17 11:40 WBC RBC Hgb Hct MCV MCH MCHC RDW Plt Count MPV Total Counted Neutrophils % Neutrophils % (Manual) Band Neutrophils % Lymphocytes % Lymphocytes % (Manual) Monocytes % Monocytes % (Manual) Eosinophils % Basophils % Metamyelocytes Polychromasia Microcytosis Macrocytosis Tear Drop Cells Sodium Potassium Chloride Carbon Dioxide Anion Gap BUN Creatinine POC Glucometer 226 Random Glucose Calcium Current Medications Generic Name Dose Route Start Last Admin Trade Name Freq PRN Reason Stop Dose Admin Dexamethasone 2 mg 09/15/17 07:20 09/29/17 13:16 Decadron - PO 2 mg TID DIAN Administration Docusate Sodium 100 mg 09/24/17 22:00 09/29/17 13:16 Colace - PO 100 mg TID DIAN Administration Enalapril Maleate 20 mg 09/11/17 10:00 09/29/17 10:30 Vasotec - PO 20 mg DAILY DIAN Administration IV Flush 4 ml 09/10/17 14:43 09/16/17 07:22 Triple Lumen Flush IVPUSH 4 ml PRN PRN Administration Protocol Daptomycin 750 mg/ Sodium 100 mls @ 200 mls/hr 09/29/17 17:00 09/29/17 18:03 Chloride IVPB 200 mls/hr DAILY@1700 [facility] Administration Protocol Insulin Aspart 0 vial 09/27/17 10:00 09/29/17 13:16 Novolog Vial Sliding Scale - SQ 2 unit BID DIAN Administration Protocol Levetiracetam 500 mg/ 750 mg 09/23/17 10:00 09/29/17 10:34 Levetiracetam 250 mg PO 750 mg BID DIAN Administration Levothyroxine Sodium 150 mcg 09/11/17 07:00 09/29/17 06:34 Synthroid - PO 150 mcg DAILY@0700 DIAN Administration Lidocaine 1 patch 09/11/17 10:00 09/29/17 10:29 Lidoderm Patch - TP 1 patch DAILY DIAN Administration Miscellaneous 1 each 09/10/17 14:43 09/15/17 23:22 Duragesic Patch Waste TD 1 each PRN PRN Administration PAIN Miscellaneous 1 each 09/10/17 22:00 09/28/17 22:21 Lidoderm Patch Removal MC 1 each DAILY@2200 DIAN Administration Mupirocin 1 applic 09/10/17 22:00 09/29/17 13:16 Bactroban 2% Cream - TP 1 applic TID DIAN Administration Ondansetron HCl 4 mg 09/10/17 14:38 Zofran Injection IVPUSH Q6H PRN NAUSEA AND/OR VOMITING Oxycodone HCl 10 mg 09/29/17 15:35 Roxicodone - PO Q6H PRN PAIN LEVEL 6-10 Pantoprazole Sodium 40 mg 09/13/17 10:00 09/29/17 10:29 Protonix - PO 40 mg DAILY [facility]AN Administration Polyethylene Glycol 17 gm 09/10/17 17:23 09/29/17 10:30 Miralax (For Daily Use) - PO Not Given DAILY DIAN Simethicone 80 mg 09/27/17 09:44 09/29/17 10:29 Mylicon - PO 80 mg QID PRN Administration GAS ASSESSMENT AND PLAN: This is a 61 year old woman with a history of HTN, colon cancer with metastases to brain and lungs, seizures, hypothyroidism who presented to the ED with worsening skin lesions. 1. MRSA bacteremia - On Daptomycin (day ) 2. Colon cancer with metastases to brain, lungs, bone - Continue Decadron, Lidoderm patch, Duragesic patch - Increase oxycodone for better pain control 3. Steroid-induced DM - Continue Novolog sliding scale 4. History of seizures secondary to metastatic brain disease - Continue Keppra 5. HTN - Continue Vasotec 6. Hypothyroidism - Continue Synthroid 7. Anemia secondary to chemotherapy, cancer, infection 8. Thrombocytopenia secondary to chemotherapy - Resolved 9. Pseudohyponatremia secondary to hyperglycemia - Resolved 10. Constipation, opioid-induced - Continue Colace, Miralax 11. Partial SBO - Resolved 12. Obesity with BMI 38.6 13. Disposition - Awaiting insurance authorization for transfer to [place]
[2017-09-29] MEDS: LIDOCAINE PATCH REMOVAL MC SCH (23:05)
[2017-09-29] MEDS: TRIPLE LUMEN FLUSH 4 ML ML IVPUSH PRN (23:08)
[2017-09-30] MEDS: MUPIROCIN CA 2% TOPICAL CREAM 15 GM TUBE TP SCH ×3 (06:43→21:51)
[2017-09-30] MEDS: LEVOTHYROXINE NA 150 MCG TABLET PO SCH (06:43)
[2017-09-30] MEDS: DOCUSATE SODIUM 100 MG CAPSULE (FP) PO SCH ×3 (06:43→21:53)
[2017-09-30] MEDS: DEXAMETHASONE 4 MG TABLET (FP) PO SCH ×3 (06:43→21:53)
[2017-09-30] MEDS ORDERED: FENTANYL PATCH WASTE TD PRN (09:15)
[2017-09-30] MEDS ORDERED: PT OWN MED DRAWER 7, Y5N ONE (10:10)
[2017-09-30] MEDS: fentaNYL 12mcg/hr PATCH.TD72 TD SCH (10:17)
[2017-09-30] MEDS: PANTOPRAZOLE 40 MG TABLET (FP) PO SCH (10:17)
[2017-09-30] MEDS: ENALAPRIL MALEATE 10 MG TABLET (FP) PO SCH (10:17)
[2017-09-30] MEDS: LIDOCAINE 5% TOPICAL PATCH TP SCH (10:18)
[2017-09-30] MEDS: POLYETHYLENE GLYCOL 3350 119 GM BTL PO SCH (10:24)
[2017-09-30] MEDS: INSULIN SLIDING SCALE (NOVOLOG) 1 VIAL SQ SCH ×2 (10:24→21:57)
--- NOTE | 2017-09-30 16:17 | PN ---
Physical Exam: SUBJECTIVE: Patient seen and examined No acute events overnight. Patient feels well this morning OBJECTIVE: Vital Signs Period Temp Pulse Resp BP Sys/[place] Pulse Ox Last 24 Hr 97.5 F-98.6 F 57-67 18-20 95-150/49-63 98-98 GENERAL: Awake, alert, and fully oriented. No acute distress. HEAD: +scattered bleeding, excorciated lesions on face with 1 on left forehead EYES: Pupils equal, round and reactive to light, extraocular movements intact, sclera anicteric, conjunctiva clear. EARS, NOSE, THROAT: Oropharynx clear without exudates. Moist mucous membranes. NECK: Normal range of motion, supple, L TLC LUNGS: Breath sounds equal, clear to auscultation bilaterally. No wheezes, and no crackles. No accessory muscle use. HEART: Regular rate and rhythm, normal S1 and S2 without murmur, rub or gallop. ABDOMEN: Soft, obese, Diffuse tenderness, +mildly distended, normoactive bowel sounds, no guarding, no rebound, no masses. MUSCULOSKELETAL: +TTP R shoulder with limited active and passive ROM LOWER EXTREMITIES: 2+ posterior tibial pulses, warm, well-perfused. +LLE calf tenderness NEUROLOGICAL: Cranial nerves II-XII intact. Right arm extension 4/5. Shoulder abduction 4/5. Left arm 5/5 at shoulder, elbow, and hand quality technician. Decreased ROM of right shoulder. SKIN: +scattered ulcerative nodules throughout body (face, arms, back, legs) with few purulent draining furuncles. No new lesions Laboratory Results - last 24 hr 09/29/17 09/30/17 09/30/17 23:03 06:00 10:22 POC Glucometer 156 185 Creatine Kinase 32 Active Medications Generic Name Dose Route Start Last Admin Trade Name Freq PRN Reason Stop Dose Admin Dexamethasone 2 mg 09/15/17 07:20 09/30/17 13:40 Decadron - PO 2 mg TID DIAN Administration Docusate Sodium 100 mg 09/24/17 22:00 09/30/17 13:40 Colace - PO 100 mg TID DIAN Administration Enalapril Maleate 20 mg 09/11/17 10:00 09/30/17 10:17 Vasotec - PO 20 mg DAILY DIAN Administration Fentanyl 1 patch 09/30/17 09:15 09/30/17 10:17 Duragesic 12mcg Patch - TD 10/07/17 09:15 1 patch Q72H DIAN Administration IV Flush 4 ml 09/10/17 14:43 09/29/17 23:08 Triple Lumen Flush IVPUSH 4 ml PRN PRN Administration Protocol Daptomycin 750 mg/ Sodium 100 mls @ 200 mls/hr 09/29/17 17:00 09/29/17 18:03 Chloride IVPB 200 mls/hr DAILY@1700 DIAN Administration Protocol Insulin Aspart 0 vial 09/27/17 10:00 09/30/17 10:24 Novolog Vial Sliding Scale - SQ Not Given BID [facility] Protocol Levetiracetam 500 mg/ 750 mg 09/23/17 10:00 09/30/17 10:17 Levetiracetam 250 mg PO 750 mg BID DIAN Administration Levothyroxine Sodium 150 mcg 09/11/17 07:00 09/30/17 06:43 Synthroid - PO 150 mcg DAILY@0700 DIAN Administration Lidocaine 1 patch 09/11/17 10:00 09/30/17 10:18 Lidoderm Patch - TP 1 patch DAILY DIAN Administration Miscellaneous 1 each 09/10/17 22:00 09/29/17 23:05 Lidoderm Patch Removal MC 1 each DAILY@2200 DIAN Administration Miscellaneous 1 each 09/30/17 09:15 Duragesic Patch Waste TD PRN PRN PAIN Mupirocin 1 applic 09/10/17 22:00 09/30/17 13:41 Bactroban 2% Cream - TP 1 applic TID DIAN Administration Ondansetron HCl 4 mg 09/10/17 14:38 Zofran Injection IVPUSH Q6H PRN NAUSEA AND/OR VOMITING Oxycodone HCl 10 mg 09/29/17 15:35 09/29/17 20:31 Roxicodone - PO 10 mg Q6H PRN Administration PAIN LEVEL 6-10 Pantoprazole Sodium 40 mg 09/13/17 10:00 09/30/17 10:17 Protonix - PO 40 mg DAILY DIAN Administration Polyethylene Glycol 17 gm 09/10/17 17:23 09/30/17 10:24 Miralax (For Daily Use) - PO Not Given DAILY [facility] Simethicone 80 mg 09/27/17 09:44 09/29/17 10:29 Mylicon - PO 80 mg QID PRN Administration GAS ASSESSMENT/PLAN: 61 year old F with pmh of 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 last bcx drawn 09/18 -Continue Daptomycin 750 mg q24h day 21. Will need joint terminal attack controller abx per ID (4 more weeks of Daptomycin) -ID on board #Metastatic Colon Cancer -Decadron 2mg TID -Pain control with fentanyl patch, oxycodone, and lidocaine patch -MRI of tibia-- bone mets -Continue Keppra 750 mg bid for seizure ppx given brain mets #Abdominal pain, Partial vs complete sbo,, improved -Lactic acid normal -Surgery consulted, Dr. Cohen -Will not proceed with surgical intervention -simethicone prn #DM, newly diagnosed -ISS q6h -D/c levemir #HTN -Continue enalapril #FEN/GI -no ivf -wnl -Soft Diet with glucerna tid #PPx -Scds -Protonix Overall prognosis is quite poor. Patient awaiting insurance auth for [place]. DNI --not DNR. Visit type - Emergency Visit Emergency Visit: Yes ED Registration Date: 09/07/17 Care time: The patient presented to the Emergency Department on the above date and was hospitalized for further evaluation of their emergent condition. - New Patient This patient is new to me today: No - Critical Care Critical Care patient: No
--- NOTE | 2017-09-30 16:50 | PN ---
Progress Note (short form) - Note Progress Note: Patient seen and examined. chart reviewed. O/E General: Not in any distress HEENT: BETSY, EOM Intact Oropharynx: No thrush, No mucositis or: RSR, No murmurs, No gallops Lungs diminished breath , rales bilaterally Abd: Soft, Normal bowel sounds, ventral hernia Ext:No significant edema Skin: cutaneous lesion , scabbing Last Vital Signs Temp Pulse Resp BP Pulse Ox 97.5 F L 67 20 111/57 98 09/30/17 14:36 09/30/17 14:36 09/30/17 14:36 09/30/17 14:36 09/30/17 10:00 CBC, BMP 09/29/17 06:15 09/29/17 06:15 Current Medications Generic Name Dose Route Start Last Admin Trade Name Freq PRN Reason Stop Dose Admin Dexamethasone 2 mg 09/15/17 07:20 09/30/17 13:40 Decadron - PO 2 mg TID DIAN Administration Docusate Sodium 100 mg 09/24/17 22:00 09/30/17 13:40 Colace - PO 100 mg TID DIAN Administration Enalapril Maleate 20 mg 09/11/17 10:00 09/30/17 10:17 Vasotec - PO 20 mg DAILY DIAN Administration Fentanyl 1 patch 09/30/17 09:15 09/30/17 10:17 Duragesic 12mcg Patch - TD 10/07/17 09:15 1 patch Q72H DIAN Administration IV Flush 4 ml 09/10/17 14:43 09/29/17 23:08 Triple Lumen Flush IVPUSH 4 ml PRN PRN Administration Protocol Daptomycin 750 mg/ Sodium 100 mls @ 200 mls/hr 09/29/17 17:00 09/29/17 18:03 Chloride IVPB 200 mls/hr DAILY@1700 DIAN Administration Protocol Insulin Aspart 0 vial 09/27/17 10:00 09/30/17 10:24 Novolog Vial Sliding Scale - SQ Not Given BID DIAN Protocol Levetiracetam 500 mg/ 750 mg 09/23/17 10:00 09/30/17 10:17 Levetiracetam 250 mg PO 750 mg BID DIAN Administration Levothyroxine Sodium 150 mcg 09/11/17 07:00 09/30/17 06:43 Synthroid - PO 150 mcg DAILY@0700 DIAN Administration Lidocaine 1 patch 09/11/17 10:00 09/30/17 10:18 Lidoderm Patch - TP 1 patch DAILY DIAN Administration Miscellaneous 1 each 09/10/17 22:00 09/29/17 23:05 Lidoderm Patch Removal MC 1 each DAILY@2200 DIAN Administration Miscellaneous 1 each 09/30/17 09:15 Duragesic Patch Waste TD PRN PRN PAIN Mupirocin 1 applic 09/10/17 22:00 09/30/17 13:41 Bactroban 2% Cream - TP 1 applic TID DIAN Administration Ondansetron HCl 4 mg 09/10/17 14:38 Zofran Injection IVPUSH Q6H PRN NAUSEA AND/OR VOMITING Oxycodone HCl 10 mg 09/29/17 15:35 09/29/17 20:31 Roxicodone - PO 10 mg Q6H PRN Administration PAIN LEVEL 6-10 Pantoprazole Sodium 40 mg 09/13/17 10:00 09/30/17 10:17 Protonix - PO 40 mg DAILY DIAN Administration Polyethylene Glycol 17 gm 09/10/17 17:23 09/30/17 10:24 Miralax (For Daily Use) - PO Not Given DAILY [facility] Simethicone 80 mg 09/27/17 09:44 09/29/17 10:29 Mylicon - PO 80 mg QID PRN Administration GAS Impression: Metastatic colon ca resolved partial SBO Staph cutaneous lesion Staph sepsis MRSA Plan: for completion of abx. for SNF discharge.
[2017-09-30] MEDS: oxyCODONE HCL 5 MG TABLET PO PRN (17:10)
[2017-09-30] MEDS: DAPTOMYCIN 750 MG in SODIUM CHLORIDE 100 ML IVPB SCH (17:10)
--- NOTE | 2017-09-30 17:16 | PN ---
Teaching Attending Note Name of Resident: Burke Vuong ATTENDING PHYSICIAN STATEMENT I saw and evaluated the patient. I reviewed the resident's note and discussed the case with the resident. I agree with the resident's findings and plan as documented. SUBJECTIVE: No new complaints. OBJECTIVE: Vital Signs Period Temp Pulse Resp BP Sys/[place] Pulse Ox Last 24 Hr 97.5 F-98.6 F 57-67 18-20 95-150/49-63 98-98 HEART: S1S2, RRR LUNGS: Clear ABDOMEN: Obese, soft, non-tender, non-distended, normal BS EXTREMITIES: No edema Laboratory Results - last 24 hr 09/29/17 09/30/17 09/30/17 23:03 06:00 10:22 POC Glucometer 156 185 Creatine Kinase 32 Current Medications Generic Name Dose Route Start Last Admin Trade Name Freq PRN Reason Stop Dose Admin Dexamethasone 2 mg 09/15/17 07:20 09/30/17 13:40 Decadron - PO 2 mg TID DIAN Administration Docusate Sodium 100 mg 09/24/17 22:00 09/30/17 13:40 Colace - PO 100 mg TID DIAN Administration Enalapril Maleate 20 mg 09/11/17 10:00 09/30/17 10:17 Vasotec - PO 20 mg DAILY DIAN Administration Fentanyl 1 patch 09/30/17 09:15 09/30/17 10:17 Duragesic 12mcg Patch - TD 10/07/17 09:15 1 patch Q72H DIAN Administration IV Flush 4 ml 09/10/17 14:43 09/29/17 23:08 Triple Lumen Flush IVPUSH 4 ml PRN PRN Administration Protocol Daptomycin 750 mg/ Sodium 100 mls @ 200 mls/hr 09/29/17 17:00 09/30/17 17:10 Chloride IVPB 200 mls/hr DAILY@1700 DIAN Administration Protocol Insulin Aspart 0 vial 09/27/17 10:00 09/30/17 10:24 Novolog Vial Sliding Scale - SQ Not Given BID DIAN Protocol Levetiracetam 500 mg/ 750 mg 09/23/17 10:00 09/30/17 10:17 Levetiracetam 250 mg PO 750 mg BID DIAN Administration Levothyroxine Sodium 150 mcg 09/11/17 07:00 09/30/17 06:43 Synthroid - PO 150 mcg DAILY@0700 DIAN Administration Lidocaine 1 patch 09/11/17 10:00 09/30/17 10:18 Lidoderm Patch - TP 1 patch DAILY DIAN Administration Miscellaneous 1 each 09/10/17 22:00 09/29/17 23:05 Lidoderm Patch Removal MC 1 each DAILY@2200 DIAN Administration Miscellaneous 1 each 09/30/17 09:15 Duragesic Patch Waste TD PRN PRN PAIN Mupirocin 1 applic 09/10/17 22:00 09/30/17 13:41 Bactroban 2% Cream - TP 1 applic TID DIAN Administration Ondansetron HCl 4 mg 09/10/17 14:38 Zofran Injection IVPUSH Q6H PRN NAUSEA AND/OR VOMITING Oxycodone HCl 10 mg 09/29/17 15:35 09/30/17 17:10 Roxicodone - PO 10 mg Q6H PRN Administration PAIN LEVEL 6-10 Pantoprazole Sodium 40 mg 09/13/17 10:00 09/30/17 10:17 Protonix - PO 40 mg DAILY DIAN Administration Polyethylene Glycol 17 gm 09/10/17 17:23 09/30/17 10:24 Miralax (For Daily Use) - PO Not Given DAILY DIAN Simethicone 80 mg 09/27/17 09:44 09/29/17 10:29 Mylicon - PO 80 mg QID PRN Administration GAS ASSESSMENT AND PLAN: This is a 61 year old woman with a history of HTN, colon cancer with metastases to brain and lungs, seizures, hypothyroidism who presented to the ED with worsening skin lesions. 1. MRSA bacteremia - On Daptomycin (day ) 2. Colon cancer with metastases to brain, lungs, bone - Continue Decadron, Lidoderm patch, Duragesic patch, oxycodone as needed 3. Steroid-induced DM - Continue Novolog sliding scale 4. History of seizures secondary to metastatic brain disease - Continue Keppra 5. HTN - Continue Vasotec 6. Hypothyroidism - Continue Synthroid 7. Anemia secondary to chemotherapy, cancer, infection 8. Thrombocytopenia secondary to chemotherapy - Resolved 9. Pseudohyponatremia secondary to hyperglycemia - Resolved 10. Constipation, opioid-induced - Continue Colace, Miralax 11. Partial SBO - Resolved 12. Obesity with BMI 38.6 13. Disposition - Awaiting insurance authorization for transfer to [place] to complete course of Daptomycin
[2017-09-30] MEDS: LIDOCAINE PATCH REMOVAL MC SCH (21:53)
[2017-10-01] MEDS: oxyCODONE HCL 5 MG TABLET PO PRN ×4 (00:51→22:42)
[2017-10-01] MEDS: DOCUSATE SODIUM 100 MG CAPSULE (FP) PO SCH ×3 (05:36→22:38)
[2017-10-01] MEDS: DEXAMETHASONE 4 MG TABLET (FP) PO SCH ×3 (05:36→22:38)
[2017-10-01] MEDS: MUPIROCIN CA 2% TOPICAL CREAM 15 GM TUBE TP SCH ×3 (05:36→22:37)
[2017-10-01] MEDS: LEVOTHYROXINE NA 150 MCG TABLET PO SCH (06:21)
[2017-10-01] MEDS ORDERED: PT OWN MED DRAWER 7, Y5N ONE ×3 (10:15→17:17)
[2017-10-01] MEDS: PANTOPRAZOLE 40 MG TABLET (FP) PO SCH (10:16)
[2017-10-01] MEDS: SIMETHICONE 80 MG TAB.CHEW (FP) PO PRN (10:16)
[2017-10-01] MEDS: ENALAPRIL MALEATE 10 MG TABLET (FP) PO SCH (10:16)
[2017-10-01] MEDS: LIDOCAINE 5% TOPICAL PATCH TP SCH (10:16)
[2017-10-01] MEDS: POLYETHYLENE GLYCOL 3350 119 GM BTL PO SCH (10:19)
[2017-10-01] MEDS: INSULIN SLIDING SCALE (NOVOLOG) 1 VIAL SQ SCH ×2 (10:21→22:39)
[2017-10-01] MEDS ORDERED: INSULIN (NOVOLOG) ASPART 100 UNITS/ML 10ML VIAL ONE (10:23)
--- NOTE | 2017-10-01 14:17 | PN ---
<Burke Vuong - Last Filed: 10/01/17 16:43> Physical Exam: SUBJECTIVE: Patient seen and examined No acute events overnight. Patient feels well this morning. Pain better controlled OBJECTIVE: Vital Signs Period Temp Pulse Resp BP Sys/[place] Pulse Ox Last 24 Hr 97.4 F-98.2 F 63-74 18-20 93-122/54-60 98-98 GENERAL: Awake, alert, and fully oriented. No acute distress. HEAD: +scattered bleeding, excorciated lesions on face with 1 on left forehead EYES: Pupils equal, round and reactive to light, extraocular movements intact, sclera anicteric, conjunctiva clear. EARS, NOSE, THROAT: Oropharynx clear without exudates. Moist mucous membranes. NECK: Normal range of motion, supple, L TLC LUNGS: Breath sounds equal, clear to auscultation bilaterally. No wheezes, and no crackles. No accessory muscle use. HEART: Regular rate and rhythm, normal S1 and S2 without murmur, rub or gallop. ABDOMEN: Soft, obese, Diffuse tenderness, +mildly distended, normoactive bowel sounds, no guarding, no rebound, no masses. MUSCULOSKELETAL: +TTP R shoulder with limited active and passive ROM LOWER EXTREMITIES: 2+ posterior tibial pulses, warm, well-perfused. +LLE calf tenderness NEUROLOGICAL: Cranial nerves II-XII intact. Right arm extension 4/5. Shoulder abduction 4/5. Left arm 5/5 at shoulder, elbow, and hand athletic trainer. Decreased ROM of right shoulder. SKIN: +scattered ulcerative nodules throughout body (face, arms, back, legs) with few purulent draining furuncles. No new lesions Laboratory Results - last 24 hr 09/30/17 10/01/17 10/01/17 21:55 05:35 10:20 POC Glucometer 171 163 260 Active Medications Generic Name Dose Route Start Last Admin Trade Name Freq PRN Reason Stop Dose Admin Dexamethasone 2 mg 09/15/17 07:20 10/01/17 13:08 Decadron - PO 2 mg TID DIAN Administration Docusate Sodium 100 mg 09/24/17 22:00 10/01/17 13:09 Colace - PO 100 mg TID DIAN Administration Enalapril Maleate 20 mg 09/11/17 10:00 10/01/17 10:16 Vasotec - PO 20 mg DAILY DIAN Administration Fentanyl 1 patch 09/30/17 09:15 09/30/17 10:17 Duragesic 12mcg Patch - TD 10/07/17 09:15 1 patch Q72H DIAN Administration IV Flush 4 ml 09/10/17 14:43 09/29/17 23:08 Triple Lumen Flush IVPUSH 4 ml PRN PRN Administration Protocol Daptomycin 750 mg/ Sodium 100 mls @ 200 mls/hr 09/29/17 17:00 09/30/17 17:10 Chloride IVPB 200 mls/hr DAILY@1700 DIAN Administration Protocol Insulin Aspart 0 vial 09/27/17 10:00 10/01/17 10:21 Novolog Vial Sliding Scale - SQ 4 units BID DIAN Administration Protocol Levetiracetam 500 mg/ 750 mg 09/23/17 10:00 10/01/17 10:16 Levetiracetam 250 mg PO 750 mg BID DIAN Administration Levothyroxine Sodium 150 mcg 09/11/17 07:00 10/01/17 06:21 Synthroid - PO 150 mcg DAILY@0700 DIAN Administration Lidocaine 1 patch 09/11/17 10:00 10/01/17 10:16 Lidoderm Patch - TP 1 patch DAILY DIAN Administration Miscellaneous 1 each 09/10/17 22:00 09/30/17 21:53 Lidoderm Patch Removal MC 1 each DAILY@2200 DIAN Administration Miscellaneous 1 each 09/30/17 09:15 Duragesic Patch Waste TD PRN PRN PAIN Mupirocin 1 applic 09/10/17 22:00 10/01/17 13:08 Bactroban 2% Cream - TP 1 applic TID DIAN Administration Ondansetron HCl 4 mg 09/10/17 14:38 Zofran Injection IVPUSH Q6H PRN NAUSEA AND/OR VOMITING Oxycodone HCl 10 mg 09/29/17 15:35 10/01/17 10:16 Roxicodone - PO 10 mg Q6H PRN Administration PAIN LEVEL 6-10 Pantoprazole Sodium 40 mg 09/13/17 10:00 10/01/17 10:16 Protonix - PO 40 mg DAILY DIAN Administration Polyethylene Glycol 17 gm 09/10/17 17:23 10/01/17 10:19 Miralax (For Daily Use) - PO Not Given DAILY DIAN Simethicone 80 mg 09/27/17 09:44 10/01/17 10:16 Mylicon - PO 80 mg QID PRN Administration GAS ASSESSMENT/PLAN: 61 year old F with pmh of 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 last bcx drawn 09/18 -Continue Daptomycin 750 mg q24h day 22. Will need assisted abx per ID (3-4 more weeks of Daptomycin) -ID on board #Metastatic Colon Cancer -Decadron 2mg TID -Pain control with fentanyl patch, oxycodone, and lidocaine patch -MRI of tibia-- bone mets -Continue Keppra 750 mg bid for seizure ppx given brain mets #Abdominal pain, Partial vs complete sbo,, improved -Lactic acid normal -Surgery consulted, Dr. Cohen -Will not proceed with surgical intervention -simethicone prn #DM, newly diagnosed -ISS q6h -D/c levemir #HTN -Continue enalapril #FEN/GI -no ivf -wnl -Soft Diet with glucerna tid #PPx -Scds -Protonix Overall prognosis is quite poor. Patient awaiting insurance auth for [place]. DNI --not DNR. Visit type - Emergency Visit Emergency Visit: Yes ED Registration Date: 09/07/17 Care time: The patient presented to the Emergency Department on the above date and was hospitalized for further evaluation of their emergent condition. - New Patient This patient is new to me today: No - Critical Care Critical Care patient: No <Fredis Jacome - Last Filed: 10/01/17 19:29> Physical Exam: Waiting for Placement to [facility].
[2017-10-01] MEDS: DAPTOMYCIN 750 MG in SODIUM CHLORIDE 100 ML IVPB SCH (17:27)
[2017-10-01] MEDS: LIDOCAINE PATCH REMOVAL MC SCH (22:38)
[2017-10-02] MEDS: MUPIROCIN CA 2% TOPICAL CREAM 15 GM TUBE TP SCH ×3 (06:25→22:37)
[2017-10-02] MEDS: DEXAMETHASONE 4 MG TABLET (FP) PO SCH ×3 (06:26→22:37)
[2017-10-02] MEDS: DOCUSATE SODIUM 100 MG CAPSULE (FP) PO SCH ×3 (06:26→22:37)
[2017-10-02] MEDS: LEVOTHYROXINE NA 150 MCG TABLET PO SCH (06:27)
--- NOTE | 2017-10-02 09:12 | PN ---
<Yang French - Last Filed: 10/02/17 20:04> Physical Exam: SUBJECTIVE: Patient seen and examined. american-speaking. c/o of left leg pain and difficulty ambulating. does not want to sit in chair due to pain. says it is improved with increase in pain meds and fentanyl patch but not enough to be weight bearing. denies chest pain, sob, abdominal pain, headache, seizures. eating/toileting well OBJECTIVE: Vital Signs Period Temp Pulse Resp BP Sys/[place] Pulse Ox Last 24 Hr 97.3 F-98.1 F 63-74 20-20 94-113/51-62 98 GENERAL: The patient is awake, alert, and fully oriented, in no acute distress. EYES: PERRL, extraocular movements intact, sclera anicteric, conjunctiva clear. ENT:oropharynx clear without exudates, moist mucous membranes, without thrush NECK: Trachea midline, LUNGS: quiet at bases, Breath sounds equal, no wheezes, no crackles, no accessory muscle use. CHEST: left triple luman cath in place, without drainage or erythema HEART: Regular rate and rhythm, S1, S2 without murmur, rub or gallop. ABDOMEN: Soft, nontender, mild chronic distended, normoactive bowel sounds, no guarding, no rebound,well-healed abdominal scars EXTREMITIES: 2+ radial and DP pulses, warm, well-perfused, no edema. TTP throughout left leg and arms, trace edema in b/l lower legs. decreased range of motion due to pain. NEUROLOGICAL: Normal speech, gait not observed. facial symmetry PSYCH: Normal mood, normal affect. SKIN: Warm, dry, normal turgor, healing facial rashs and multiple lesions throughout arms healing. no lesions on legs Laboratory Results - last 24 hr 10/01/17 10/01/17 10/02/17 10:20 22:36 06:24 POC Glucometer 260 149 186 Active Medications Dexamethasone (Decadron -) 2 mg PO TID [facility] Last Admin: 10/02/17 13:30 Dose: 2 mg Docusate Sodium (Colace -) 100 mg PO TID [facility] Last Admin: 10/02/17 13:30 Dose: 100 mg Enalapril Maleate (Vasotec -) 20 mg PO DAILY [facility] Last Admin: 10/02/17 10:09 Dose: 20 mg Fentanyl (Duragesic 12mcg Patch -) 1 patch TD Q72H [facility] Stop: 10/07/17 09:15 Last Admin: 09/30/17 10:17 Dose: 1 patch IV Flush (Triple Lumen Flush) 4 ml IVPUSH PRN PRN PRN Reason: Protocol Last Admin: 09/29/17 23:08 Dose: 4 ml Daptomycin 750 mg/ Sodium (Chloride) 100 mls @ 200 mls/hr IVPB DAILY@1700 [facility] PRN Reason: Protocol Last Admin: 10/02/17 16:50 Dose: 200 mls/hr Insulin Aspart (Novolog Vial Sliding Scale -) 0 vial SQ BID [facility] PRN Reason: Protocol Last Admin: 10/02/17 10:17 Dose: 2 units Levetiracetam 500 mg/ (Levetiracetam 250 mg) 750 mg PO BID [facility] Last Admin: 10/02/17 10:09 Dose: 750 mg Levothyroxine Sodium (Synthroid -) 150 mcg PO DAILY@0700 [facility] Last Admin: 10/02/17 06:27 Dose: 150 mcg Lidocaine (Lidoderm Patch -) 1 patch TP DAILY [facility] Last Admin: 10/02/17 10:09 Dose: 1 patch Miscellaneous (Lidoderm Patch Removal) 1 each MC DAILY@2200 [facility] Last Admin: 10/01/17 22:38 Dose: 1 each Miscellaneous (Duragesic Patch Waste) 1 each TD PRN PRN PRN Reason: PAIN Mupirocin (Bactroban 2% Cream -) 1 applic TP TID [facility] Last Admin: 10/02/17 13:31 Dose: 1 applic Ondansetron HCl (Zofran Injection) 4 mg IVPUSH Q6H PRN PRN Reason: NAUSEA AND/OR VOMITING Oxycodone HCl (Roxicodone -) 10 mg PO Q6H PRN PRN Reason: PAIN LEVEL 6-10 Last Admin: 10/02/17 13:30 Dose: 10 mg Pantoprazole Sodium (Protonix -) 40 mg PO DAILY [facility] Last Admin: 10/02/17 10:09 Dose: 40 mg Polyethylene Glycol (Miralax (For Daily Use) -) 17 gm PO DAILY [facility] Last Admin: 10/02/17 13:31 Dose: Not Given Simethicone (Mylicon -) 80 mg PO QID PRN PRN Reason: GAS Last Admin: 10/01/17 10:16 Dose: 80 mg Microbiology 09/18/17 18:15 Blood - Peripheral Venous Blood Culture - Final NO GROWTH AFTER 5 DAYS INCUBATION 09/18/17 16:30 Blood - Peripheral Venous Blood Culture - Final NO GROWTH AFTER 5 DAYS INCUBATION 09/15/17 08:08 Blood - Peripheral Venous Blood Culture - Final NO GROWTH AFTER 5 DAYS INCUBATION 09/15/17 06:40 Blood - Peripheral Venous Blood Culture - Final NO GROWTH AFTER 5 DAYS INCUBATION 09/13/17 08:00 Blood - Peripheral Venous Blood Culture - Final S Aureus 09/08/17 11:00 Wound Viral Culture - Final 09/13/17 06:00 Blood - Peripheral Venous Blood Culture - Final S Aureus 09/11/17 15:30 Blood - Peripheral Venous Blood Culture - Final Presumptive Mrsa (Pbp2a Pos) 09/11/17 19:00 Blood - Peripheral Venous Blood Culture - Final Presumptive Mrsa (Pbp2a Pos) 09/07/17 Unknown Back Gram Stain - Final 09/07/17 Unknown Back Wound Culture - Final Proteus Mirabilis Mr S Aureus Enterococcus Faecalis 09/09/17 06:00 Blood - Peripheral Venous Blood Culture - Final Presumptive Mrsa (Pbp2a Pos) 09/09/17 06:00 Blood - Peripheral Venous Blood Culture - Final S Aureus 09/08/17 11:18 Serum Cryptococcal Antigen - Final 09/08/17 12:30 Blood - Sakshi Cath Blood Culture - Final Presumptive Mrsa (Pbp2a Pos) 09/08/17 11:25 Blood - Sakshi Cath Blood Culture - Final S Aureus 09/07/17 17:38 Blood - Peripheral Venous Blood Culture - Final Presumptive Mrsa (Pbp2a Pos) 09/07/17 17:38 Blood - Peripheral Venous Blood Culture - Final S Aureus ASSESSMENT/PLAN: 61 year old F with pmh of metastatic colon cancer to lungs/brain/bone s/p chemo presented with skin lesions found to have MRSA bacteremia #MRSA bacteremia with skin lesions -Repeat cx ngtd. last bcx drawn 09/18 -Continue Daptomycin 750 mg q24h day 23 Started September 10, to be completed 10/28/2017 (5wks from 09/23) completed ceftaroline 09/12/2017-09/22/2017 - should have weekly labs including CPK while on daptomycin -ID on board: Dr. Chang #Metastatic Colon Cancer(mets in brain, pt requires seizure precautions) -Decadron 2mg TID - stable on home dose - tappered 09/07-09/09 4mg po q6hr 09/09-09/10 4mg po TID 09/11 4mg po once 09/12-09/14 4mg po bid 09/13 2mg po q8h 09/14 4mg po once 09/15 - 10/02 2mg po TID -metastatic bone pain -- Pain control with fentanyl patch, oxycodone 10mg q6hr prn, and lidocaine patch -MRI of tibia-- bone mets -Continue Keppra 750 mg bid for seizure ppx given brain mets - triple lumen in place for extended period of time due to limited vascular access #Abdominal pain, Partial vs complete sbo, improved, continue to monitor for reoccurrance -Surgery consulted, Dr. Cohen; will not proceed with surgical intervention - miralax, colace, zofran -simethicone prn #DM, steriod induced -ISS q6h, BGM ACHS - levemir was dc'd due to patient's poor oral intake #HTN - controlled -Continue enalapril 20mg po daily # Hypothyroidism - continue synthroid #FEN/GI -no ivf -wnl -Soft Diet with glucerna tid #PPx -GI Protonix continue physical therapy Overall prognosis is quite poor. Patient awaiting insurance auth for [facility] due to extensive care requirements that cannot be met in SNF. DNI --not DNR. Visit type - Emergency Visit Emergency Visit: No - New Patient This patient is new to me today: Yes Date on this admission: 10/02/17 - Critical Care Critical Care patient: No - Discharge Referral Referred to [facility] Med P.C.: No <Fredis Jacome - Last Filed: 10/03/17 16:10> Physical Exam: Waiting for [facility] bed.
[2017-10-02] MEDS ORDERED: PT OWN MED DRAWER 7, Y5N ONE (10:02)
[2017-10-02] MEDS: LIDOCAINE 5% TOPICAL PATCH TP SCH (10:09)
[2017-10-02] MEDS: ENALAPRIL MALEATE 10 MG TABLET (FP) PO SCH (10:09)
[2017-10-02] MEDS: PANTOPRAZOLE 40 MG TABLET (FP) PO SCH (10:09)
[2017-10-02] MEDS ORDERED: INSULIN (NOVOLOG) ASPART 100 UNITS/ML 10ML VIAL ONE (10:12)
[2017-10-02] MEDS: INSULIN SLIDING SCALE (NOVOLOG) 1 VIAL SQ SCH ×2 (10:17→22:38)
[2017-10-02] MEDS: oxyCODONE HCL 5 MG TABLET PO PRN (13:30)
[2017-10-02] MEDS: POLYETHYLENE GLYCOL 3350 119 GM BTL PO SCH (13:31)
[2017-10-02] MEDS: DAPTOMYCIN 750 MG in SODIUM CHLORIDE 100 ML IVPB SCH (16:50)
[2017-10-02] MEDS ORDERED: oxyCODONE HCL 5 MG TABLET PO ONE (18:30)
[2017-10-02] MEDS: LIDOCAINE PATCH REMOVAL MC SCH (22:39)
[2017-10-03] MEDS: DEXAMETHASONE 4 MG TABLET (FP) PO SCH ×3 (06:48→21:48)
[2017-10-03] MEDS: DOCUSATE SODIUM 100 MG CAPSULE (FP) PO SCH ×3 (06:48→21:48)
[2017-10-03] MEDS: MUPIROCIN CA 2% TOPICAL CREAM 15 GM TUBE TP SCH ×3 (06:48→21:48)
[2017-10-03] MEDS: LEVOTHYROXINE NA 150 MCG TABLET PO SCH (06:49)
[2017-10-03] MEDS: PANTOPRAZOLE 40 MG TABLET (FP) PO SCH (11:16)
[2017-10-03] MEDS: ENALAPRIL MALEATE 10 MG TABLET (FP) PO SCH (11:16)
[2017-10-03] MEDS: fentaNYL 12mcg/hr PATCH.TD72 TD SCH (11:17)
[2017-10-03] MEDS: POLYETHYLENE GLYCOL 3350 119 GM BTL PO SCH ×2 (11:19→11:35)
[2017-10-03] MEDS: LIDOCAINE 5% TOPICAL PATCH TP SCH (11:19)
[2017-10-03] MEDS: oxyCODONE HCL 5 MG TABLET PO PRN ×2 (11:19→21:47)
--- NOTE | 2017-10-03 12:51 | PN ---
<Burke Vuong - Last Filed: 10/03/17 13:07> Physical Exam: SUBJECTIVE: Patient seen and examined No acute events overnight. Patient continues to complain of pain in leg and shoulder. Patient eating well and tolerating diet. Denies any complaints OBJECTIVE: Vital Signs Period Temp Pulse Resp BP Sys/[place] Pulse Ox Last 24 Hr 97.7 F-98.1 F 58-69 18-20 97-103/52-60 98 GENERAL: The patient is awake, alert, and fully oriented, in no acute distress. EYES: Extraocular movements intact, sclera anicteric, conjunctiva clear. ENT: Oropharynx clear without exudates, moist mucous membranes NECK: Trachea midline LUNGS: Breath sounds equal, no wheezes, no crackles, no accessory muscle use. CHEST: Left triple luman catheter in place, no drainage or erythema HEART: Regular rate and rhythm, S1, S2 without murmur, rub or gallop. ABDOMEN: Soft, nontender, mild chronic distended, normoactive bowel sounds, no guarding, no rebound,well-healed abdominal scars EXTREMITIES: 2+ radial and DP pulses, warm, well-perfused, no edema. TTP throughout left leg and arms, trace edema in b/l lower legs. decreased range of motion due to pain. NEUROLOGICAL: Normal speech, gait not observed. facial symmetry PSYCH: Normal mood, normal affect. SKIN: Warm, dry, normal turgor, healing facial rashs and multiple lesions throughout arms healing. no lesions on legs Laboratory Results - last 24 hr 10/02/17 10/03/17 22:36 06:46 POC Glucometer 152 154 Active Medications Generic Name Dose Route Start Last Admin Trade Name [place] PRN Reason Stop Dose Admin Dexamethasone 2 mg 09/15/17 07:20 10/03/17 06:48 Decadron - PO 2 mg TID DIAN Administration Docusate Sodium 100 mg 09/24/17 22:00 10/03/17 06:48 Colace - PO 100 mg TID DIAN Administration Enalapril Maleate 20 mg 09/11/17 10:00 10/03/17 11:16 Vasotec - PO 20 mg DAILY DIAN Administration Fentanyl 1 patch 09/30/17 09:15 10/03/17 11:17 Duragesic 12mcg Patch - TD 10/07/17 09:15 1 patch Q72H DIAN Administration IV Flush 4 ml 09/10/17 14:43 09/29/17 23:08 Triple Lumen Flush IVPUSH 4 ml PRN PRN Administration Protocol Daptomycin 750 mg/ Sodium 100 mls @ 200 mls/hr 09/29/17 17:00 10/02/17 16:50 Chloride IVPB 200 mls/hr DAILY@1700 DIAN Administration Protocol Insulin Aspart 0 vial 09/27/17 10:00 10/02/17 22:38 Novolog Vial Sliding Scale - SQ Not Given BID DIAN Protocol Levetiracetam 500 mg/ 750 mg 09/23/17 10:00 10/03/17 11:17 Levetiracetam 250 mg PO 750 mg BID DIAN Administration Levothyroxine Sodium 150 mcg 09/11/17 07:00 10/03/17 06:49 Synthroid - PO 150 mcg DAILY@0700 DIAN Administration Lidocaine 1 patch 09/11/17 10:00 10/03/17 11:19 Lidoderm Patch - TP 1 patch DAILY DIAN Administration Miscellaneous 1 each 09/10/17 22:00 10/02/17 22:39 Lidoderm Patch Removal MC 1 each DAILY@2200 DIAN Administration Miscellaneous 1 each 09/30/17 09:15 Duragesic Patch Waste TD PRN PRN PAIN Mupirocin 1 applic 09/10/17 22:00 10/03/17 06:48 Bactroban 2% Cream - TP 1 applic TID DIAN Administration Ondansetron HCl 4 mg 09/10/17 14:38 Zofran Injection IVPUSH Q6H PRN NAUSEA AND/OR VOMITING Oxycodone HCl 10 mg 09/29/17 15:35 10/03/17 11:19 Roxicodone - PO 10 mg Q6H PRN Administration PAIN LEVEL 6-10 Pantoprazole Sodium 40 mg 09/13/17 10:00 10/03/17 11:16 Protonix - PO 40 mg DAILY DIAN Administration Polyethylene Glycol 17 gm 09/10/17 17:23 10/03/17 11:35 Miralax (For Daily Use) - PO Not Given DAILY DIAN Simethicone 80 mg 09/27/17 09:44 10/01/17 10:16 Mylicon - PO 80 mg QID PRN Administration GAS ASSESSMENT/PLAN: 61 year old F with pmh of metastatic colon cancer to lungs/brain/bone s/p chemo presented with skin lesions found to have MRSA bacteremia #MRSA bacteremia with skin lesions -Repeat cx ngtd. last bcx drawn 09/18 -Continue Daptomycin 750 mg q24h day 24 Started September 10, to be completed 10/28/2017 (5wks from 09/23) completed ceftaroline 09/12/2017-09/22/2017 -should have weekly labs including CPK while on daptomycin -ID on board: Dr. Chang #Metastatic Colon Cancer(mets in brain, pt requires seizure precautions) -Decadron 2mg TID - stable on home dose - tapered 09/07-09/09 4mg po q6hr 09/09-09/10 4mg po TID 09/11 4mg po once 09/12-09/14 4mg po bid 09/13 2mg po q8h 09/14 4mg po once 09/15 - 10/02 2mg po TID -metastatic bone pain -- Pain control with fentanyl patch, oxycodone 10mg q6hr prn, and lidocaine patch -MRI of tibia-- bone mets -Continue Keppra 750 mg bid for seizure ppx given brain mets - triple lumen in place for extended period of time due to limited vascular access #Abdominal pain, Partial vs complete sbo, improved, continue to monitor for reoccurrance -Surgery consulted, Dr. Cohen; will not proceed with surgical intervention - miralax, colace, zofran -simethicone prn #DM, steriod induced -ISS q6h, BGM ACHS - levemir was dc'd due to patient's poor oral intake #HTN - controlled -Continue enalapril 20mg po daily # Hypothyroidism - continue synthroid #FEN/GI -no ivf -wnl -Soft Diet with glucerna tid #PPx -GI Protonix continue physical therapy Overall prognosis is quite poor. Patient awaiting insurance auth for [place] due to extensive care requirements that cannot be met in SNF. Peer to Peer done today with insurance company by Dr. French and Dr. Jacome, awaiting response. DNI --not DNR. Visit type - Emergency Visit Emergency Visit: Yes ED Registration Date: 09/07/17 Care time: The patient presented to the Emergency Department on the above date and was hospitalized for further evaluation of their emergent condition. - New Patient This patient is new to me today: No - Critical Care Critical Care patient: No <Fredis Jacome - Last Filed: 10/03/17 16:21> Physical Exam: # MRSA Bacteremia on day 24 of Daptomycin 750mg IV daily will be completed 2017. Patient had a port a cath removed due to having MRSA bacteremia # Seizure disorder due to her brains mets on Keppra # SBO resolved for now, tolerating diet for now.
--- NOTE | 2017-10-03 13:38 | PN ---
Progress Note, Physician History of Present Illness: Remains afebrile, no complaints. - Current Medication List Current Medications: Active Medications Dexamethasone (Decadron -) 2 mg PO TID [facility] Last Admin: 10/03/17 06:48 Dose: 2 mg Docusate Sodium (Colace -) 100 mg PO TID [facility] Last Admin: 10/03/17 06:48 Dose: 100 mg Enalapril Maleate (Vasotec -) 20 mg PO DAILY [facility] Last Admin: 10/03/17 11:16 Dose: 20 mg Fentanyl (Duragesic 12mcg Patch -) 1 patch TD Q72H [facility] Stop: 10/07/17 09:15 Last Admin: 10/03/17 11:17 Dose: 1 patch IV Flush (Triple Lumen Flush) 4 ml IVPUSH PRN PRN PRN Reason: Protocol Last Admin: 09/29/17 23:08 Dose: 4 ml Daptomycin 750 mg/ Sodium (Chloride) 100 mls @ 200 mls/hr IVPB DAILY@1700 [facility] PRN Reason: Protocol Last Admin: 10/02/17 16:50 Dose: 200 mls/hr Insulin Aspart (Novolog Vial Sliding Scale -) 0 vial SQ BID [facility] PRN Reason: Protocol Last Admin: 10/02/17 22:38 Dose: Not Given Levetiracetam 500 mg/ (Levetiracetam 250 mg) 750 mg PO BID [facility] Last Admin: 10/03/17 11:17 Dose: 750 mg Levothyroxine Sodium (Synthroid -) 150 mcg PO DAILY@0700 [facility] Last Admin: 10/03/17 06:49 Dose: 150 mcg Lidocaine (Lidoderm Patch -) 1 patch TP DAILY [facility] Last Admin: 10/03/17 11:19 Dose: 1 patch Miscellaneous (Lidoderm Patch Removal) 1 each MC DAILY@2200 [facility] Last Admin: 10/02/17 22:39 Dose: 1 each Miscellaneous (Duragesic Patch Waste) 1 each TD PRN PRN PRN Reason: PAIN Mupirocin (Bactroban 2% Cream -) 1 applic TP TID [facility] Last Admin: 10/03/17 06:48 Dose: 1 applic Ondansetron HCl (Zofran Injection) 4 mg IVPUSH Q6H PRN PRN Reason: NAUSEA AND/OR VOMITING Oxycodone HCl (Roxicodone -) 10 mg PO Q6H PRN PRN Reason: PAIN LEVEL 6-10 Last Admin: 10/03/17 11:19 Dose: 10 mg Pantoprazole Sodium (Protonix -) 40 mg PO DAILY [facility] Last Admin: 10/03/17 11:16 Dose: 40 mg Polyethylene Glycol (Miralax (For Daily Use) -) 17 gm PO DAILY [facility] Last Admin: 10/03/17 11:35 Dose: Not Given Simethicone (Mylicon -) 80 mg PO QID PRN PRN Reason: GAS Last Admin: 10/01/17 10:16 Dose: 80 mg - Objective Vital Signs: Vital Signs Temperature 97.7 F 10/03/17 06:30 Pulse Rate 58 L 10/03/17 06:30 Respiratory Rate 18 10/03/17 06:30 Blood Pressure 103/60 10/03/17 06:30 O2 Sat by Pulse Oximetry (%) 98 10/02/17 21:00 Constitutional: Yes: No Distress, Calm Neck: Yes: Supple Cardiovascular: Yes: Regular Rate and Rhythm Respiratory: Yes: Regular, Diminished Gastrointestinal: Yes: Normal Bowel Sounds, Soft, Abdomen, Obese Edema: Yes Edema: LLE: Trace, RLE: Trace Labs: CBC, BMP 09/29/17 06:15 09/29/17 06:15 INR, PTT INR 1.07 (0.82-1.09) 09/07/17 17:38 Problem List - Problems (1) MRSA bacteremia Code(s): R78.81 - BACTEREMIA (2) Colon cancer metastasized to multiple sites Code(s): C18.9 - MALIGNANT NEOPLASM OF COLON, UNSPECIFIED (3) Brain metastases Code(s): C79.31 - SECONDARY MALIGNANT NEOPLASM OF BRAIN (4) Hypothyroidism Code(s): E03.9 - HYPOTHYROIDISM, UNSPECIFIED Qualifiers: Hypothyroidism type: unspecified Qualified Code(s): E03.9 - Hypothyroidism , unspecified (5) Hypertension Code(s): I10 - ESSENTIAL (PRIMARY) HYPERTENSION Qualifiers: Hypertension type: essential hypertension Qualified Code(s): I10 - Essential (primary) hypertension (6) Pyogenic skin abscess due to bacteria Code(s): L02.91 - CUTANEOUS ABSCESS, UNSPECIFIED; B96.89 - OTH BACTERIAL AGENTS THE CAUSE OF DISEASES CLASSD [id number] Assessment/Plan 1. MRSA bacteremia 2. [place] s/p I & D 3. Metastatic colon cancer to lungs and brain post chemotherapy 4. Type 2 diabetes mellitus 5- HTN 6. Hypothyroidism PLAN: 1. Continue Vasotec 20 qd. Continue steroids with GI protection and seizure prophylaxis 2. DVT prophylaxis 3. Continue antibiotic course per ID. 4. D/c planning to [place]
[2017-10-03] MEDS: INSULIN SLIDING SCALE (NOVOLOG) 1 VIAL SQ SCH ×2 (15:05→21:48)
[2017-10-03] MEDS ORDERED: PT OWN MED DRAWER 7, Y5N ONE (18:34)
[2017-10-03] MEDS: DAPTOMYCIN 750 MG in SODIUM CHLORIDE 100 ML IVPB SCH (18:38)
[2017-10-03] MEDS: LIDOCAINE PATCH REMOVAL MC SCH (21:48)
[2017-10-03] MEDS: TRIPLE LUMEN FLUSH 4 ML ML IVPUSH PRN (21:49)
[2017-10-04] MEDS: oxyCODONE HCL 5 MG TABLET PO PRN ×4 (03:22→23:10)
[2017-10-04] MEDS: LEVOTHYROXINE NA 150 MCG TABLET PO SCH (06:54)
[2017-10-04] MEDS: DEXAMETHASONE 4 MG TABLET (FP) PO SCH ×3 (06:54→23:05)
[2017-10-04] MEDS: DOCUSATE SODIUM 100 MG CAPSULE (FP) PO SCH ×3 (06:54→23:05)
[2017-10-04] MEDS: MUPIROCIN CA 2% TOPICAL CREAM 15 GM TUBE TP SCH ×3 (06:55→23:05)
[2017-10-04] MEDS ORDERED: PT OWN MED DRAWER 7, Y5N ONE (09:15)
[2017-10-04] MEDS: LIDOCAINE 5% TOPICAL PATCH TP SCH (09:33)
[2017-10-04] MEDS: POLYETHYLENE GLYCOL 3350 119 GM BTL PO SCH (09:33)
[2017-10-04] MEDS: INSULIN SLIDING SCALE (NOVOLOG) 1 VIAL SQ SCH ×2 (09:34→23:06)
[2017-10-04] MEDS: PANTOPRAZOLE 40 MG TABLET (FP) PO SCH (09:35)
[2017-10-04] MEDS: ENALAPRIL MALEATE 10 MG TABLET (FP) PO SCH (09:36)
--- NOTE | 2017-10-04 16:37 | PN ---
Physical Exam: SUBJECTIVE: Patient seen and examined Patient is c/o having low back pain. OBJECTIVE: Vital Signs Temperature 98.9 F 10/04/17 14:00 Pulse Rate 76 10/04/17 14:29 Respiratory Rate 18 10/04/17 14:29 Blood Pressure 102/56 10/04/17 14:29 O2 Sat by Pulse Oximetry (%) 96 10/04/17 09:00 GENERAL: The patient is awake, alert, and fully oriented, in no acute distress Cushinoid feature HEAD: Normal with no signs of trauma. EYES: PERRL, extraocular movements intact, sclera anicteric, conjunctiva clear. ENT: Ears normal, oropharynx clear without exudates, moist mucous membranes. NECK: Trachea midline, full range of motion, supple. LUNGS: Breath sounds equal, clear to auscultation bilaterally, no wheezes, no crackles, no accessory muscle use. HEART: Regular rate and rhythm, S1, S2 without murmur, rub or gallop. ABDOMEN: Soft, nontender, nondistended, normoactive bowel sounds, no guarding, no rebound, no hepatosplenomegaly, no masses. EXTREMITIES: 2+ pulses, warm, well-perfused, no edema. NEUROLOGICAL: Cranial nerves II through XII grossly intact. Normal speech, gait not observed. PSYCH: Normal mood, normal affect. SKIN: Warm, dry, normal turgor, no rashes or lesions noted CBCD WBC 10.3 K/mm3 (4.0-10.0) H D 09/29/17 06:15 RBC 2.98 M/mm3 (3.60-5.2) L 09/29/17 06:15 Hgb 9.1 GM/dL (10.7-15.3) L D 09/29/17 06:15 Hct 26.7 % (32.4-45.2) L 09/29/17 06:15 MCV 89.5 fl (80-96) 09/29/17 06:15 MCHC 34.2 g/dl (32.0-36.0) 09/29/17 06:15 RDW 19.7 % (11.6-15.6) H 09/29/17 06:15 Plt Count 182 K/MM3 (134-434) D 09/29/17 06:15 MPV 7.5 fl (7.5-11.1) 09/29/17 06:15 CMP Sodium 136 mmol/L (136-145) 09/29/17 06:15 Potassium 4.5 mmol/L (3.5-5.1) 09/29/17 06:15 Chloride 100 mmol/L (98-107) 09/29/17 06:15 Carbon Dioxide 24 mmol/L (21-32) 09/29/17 06:15 Anion Gap 12 (8-16) 09/29/17 06:15 BUN 23 mg/dL (7-18) H 09/29/17 06:15 Creatinine 0.6 mg/dL (0.55-1.02) 09/29/17 06:15 Creat Clearance w eGFR > 60 (>60) 09/17/17 06:50 Random Glucose 100 mg/dL (74-106) 09/29/17 06:15 Calcium 8.6 mg/dL (8.5-10.1) 09/29/17 06:15 Total Bilirubin 0.5 mg/dL (0.2-1.0) 09/17/17 06:50 AST 19 U/L (15-37) 09/17/17 06:50 ALT 44 U/L (12-78) 09/17/17 06:50 Alkaline Phosphatase 137 U/L (45-117) H 09/17/17 06:50 Total Protein 5.5 g/dl (6.4-8.2) L 09/17/17 06:50 Albumin 2.1 g/dl (3.4-5.0) L 09/17/17 06:50 CARDIAC ENZYMES Creatine Kinase 32 IU/L (26-192) 09/30/17 06:00 Laboratory Results - last 24 hr 10/03/17 10/03/17 10/04/17 18:22 21:45 09:27 POC Glucometer 130 141 201 Medication Instructions Recorded Enalapril Maleate [Vasotec] 20 mg PO DAILY 12/24/16 Levothyroxine [Synthroid -] 150 mcg PO DAILY 12/24/16 Simvastatin [Zocor -] 10 mg PO HS 07/22/17 Dexamethasone [Decadron -] 4 mg PO Q6H #120 tablet 07/24/17 levETIRAcetam [Keppra -] 500 mg PO BID #60 tablet 07/24/17 Current Medications Generic Name Dose Route Start Last Admin Trade Name Freq PRN Reason Stop Dose Admin Dexamethasone 2 mg 09/15/17 07:20 10/04/17 14:26 Decadron - PO 2 mg TID DIAN Administration Docusate Sodium 100 mg 09/24/17 22:00 10/04/17 14:26 Colace - PO 100 mg TID DIAN Administration Enalapril Maleate 20 mg 09/11/17 10:00 10/04/17 09:36 Vasotec - PO 20 mg DAILY [facility] Administration Fentanyl 1 patch 10/04/17 17:00 10/04/17 17:05 Duragesic 25mcg Patch - TD 10/11/17 16:59 1 patch Q72H DIAN Administration IV Flush 4 ml 09/10/17 14:43 10/03/17 21:49 Triple Lumen Flush IVPUSH 4 ml PRN PRN Administration Protocol Vancomycin HCl 1,250 mg/ 250 mls @ 166.667 mls/hr 10/05/17 10:00 Dextrose IVPB BID@1000,2200 [facility] Protocol Insulin Aspart 0 vial 09/27/17 10:00 10/04/17 09:34 Novolog Vial Sliding Scale - SQ 2 units BID [facility] Administration Protocol Levetiracetam 500 mg/ 750 mg 09/23/17 10:00 10/04/17 09:32 Levetiracetam 250 mg PO 750 mg BID DIAN Administration Levothyroxine Sodium 150 mcg 09/11/17 07:00 10/04/17 06:54 Synthroid - PO 150 mcg DAILY@0700 [facility] Administration Miscellaneous 1 each 09/30/17 09:15 10/04/17 17:05 Duragesic Patch Waste TD 1 each PRN PRN Administration PAIN Miscellaneous 1 each 10/04/17 16:40 Duragesic Patch Waste TD PRN PRN PAIN Mupirocin 1 applic 09/10/17 22:00 10/04/17 14:26 Bactroban 2% Cream - TP 1 applic TID DIAN Administration Ondansetron HCl 4 mg 09/10/17 14:38 Zofran Injection IVPUSH Q6H PRN NAUSEA AND/OR VOMITING Oxycodone HCl 5 mg 10/04/17 16:39 Roxicodone - PO Q4H PRN PAIN LEVEL 6-10 Pantoprazole Sodium 40 mg 09/13/17 10:00 10/04/17 09:35 Protonix - PO 40 mg DAILY DIAN Administration Polyethylene Glycol 17 gm 09/10/17 17:23 10/04/17 09:33 Miralax (For Daily Use) - PO 17 grams DAILY DIAN Administration Simethicone 80 mg 09/27/17 09:44 10/01/17 10:16 Mylicon - PO 80 mg QID PRN Administration GAS ASSESSMENT/PLAN: Patient is a 61 year old F with pmhx of metastatic colon cancer to lungs/brain/ bone s/p chemo presented with skin lesions found to have MRSA bacteremia #MRSA bacteremia with skin lesions s/p IV daptomycin 750mg for total of 25days switched to IV Vancomycin today as per ID, Patient can be discharged to Rehab on IV Vancomycin. Repeat cx ngtd. last bcx drawn 09/18. Started September 10 on Daptomycin switched to IV Vancomycin on 10/04/2017 , to be completed by 2017. Completed ceftaroline 09/12/2017-09/22/[address] for extended period of time due to limited vascular access #Metastatic Colon Cancer (mets in brain, pt requires seizure precautions), on Decadron 2mg TID - stable on home dose # Metastatic bone Disease with pain increased Duragesic patch today to 25mcg q72hr, and added oxycodone 5mg q4hr for breakthrough pain. # Seizure precaution :continue Keppra 750 mg bid for seizure ppx given brain mets. #Abdominal pain, Partial /complete sbo resolved for now. continue to monitor , On miralax, colace, simethicone prn to avoid constipation #DM, steriod induced ss with coverage. levemir was dc'd due to patient's poor oral intake #HTN - controlled Continue enalapril 20mg po daily # Hypothyroidism continue synthroid #GI PPx: Protonix DVT Px: SCDs DNI but resussitate Patient can go to SNF now since antibiotic is changed to Vancomycin IV as per ID from Daptomycin. Visit type - Emergency Visit Emergency Visit: Yes ED Registration Date: 09/07/17 Care time: The patient presented to the Emergency Department on the above date and was hospitalized for further evaluation of their emergent condition. - New Patient This patient is new to me today: No - Critical Care Critical Care patient: No
[2017-10-04] MEDS ORDERED: FENTANYL PATCH WASTE TD PRN (16:40)
[2017-10-04] MEDS ORDERED: fentaNYL 25mcg/hr PATCH.TD72 TD SCH (17:00)
[2017-10-04] MEDS: DAPTOMYCIN 750 MG in SODIUM CHLORIDE 100 ML IVPB SCH (17:12)
--- NOTE | 2017-10-04 18:49 | PN ---
Progress Note (short form) - Note Progress Note: alert port removed 09/10 abdominal pain resolved tolerating diet no complaints Vital Signs Period Temp Pulse Resp BP Sys/[place] Pulse Ox Last 24 Hr 97.5 F-98.9 F 68-76 18-18 93-132/49-70 96-96 cor-rrr lulngs clear abd soft,nt ext no edema lesions drying CBC, BMP 09/29/17 06:15 09/29/17 06:15 a/p mrsa bacteremia-port removed port infecion skin lesions- staph last positive blood culture 09/13, has completed 3 weeks of daptomycin after last positive blood culture will switch to iv vancomycin for another 3 weeks vanco 1250 mg ivpb q12h- needs trough checked on Friday d/w Hospitalist metastatic colon cancer please call back if needed Problem List - Problems (1) Bacteremia Code(s): R78.81 - BACTEREMIA (2) Skin lesions, generalized Code(s): L98.9 - DISORDER OF THE SKIN AND SUBCUTANEOUS TISSUE, UNSPECIFIED (3) Colon cancer metastasized to multiple sites Code(s): C18.9 - MALIGNANT NEOPLASM OF COLON, UNSPECIFIED
[2017-10-05] MEDS: MUPIROCIN CA 2% TOPICAL CREAM 15 GM TUBE TP SCH ×2 (06:38→14:43)
[2017-10-05] MEDS: DOCUSATE SODIUM 100 MG CAPSULE (FP) PO SCH ×2 (06:39→14:12)
[2017-10-05] MEDS: DEXAMETHASONE 4 MG TABLET (FP) PO SCH ×2 (06:39→14:12)
[2017-10-05] MEDS: LEVOTHYROXINE NA 150 MCG TABLET PO SCH (06:39)
[2017-10-05 08:29] LABS: CHLORIDE 103 mmol/L (98-107); POTASSIUM 4.9 mmol/L (3.5-5.1); SODIUM 135 mmol/L (136-145)
[2017-10-05 08:37] LABS: HEMATOCRIT 25.7 % (32.4-45.2); HEMOGLOBIN 8.7 GM/dL (10.7-15.3); MCH 30.6 pg (25.7-33.7); MCHC 34.1 g/dl (32.0-36.0); MEAN PLT VOLUME 7.2 fl (7.5-11.1); PLATELET COUNT 204 K/MM3 (134-434); RBC 2.85 M/mm3 (3.60-5.2); WHITE BLOOD COUNT 8.8 K/mm3 (4.0-10.0)
[2017-10-05 08:50] LABS: ANION GAP 6 (8-16); BLOOD UREA NITROGEN 31 mg/dL (7-18); CALCIUM 8.2 mg/dL (8.5-10.1); CO2 26 mmol/L (21-32); CREATININE 0.6 mg/dL (0.55-1.02); GLUCOSE,RANDOM 143 mg/dL (74-106); MAGNESIUM 2.1 mg/dL (1.8-2.4)
[2017-10-05] MEDS ORDERED: guaiFENesin/D-METHORPHAN HB 10 ML UNIT-DOSE CUPS PO PRN (09:01)
--- NOTE | 2017-10-05 09:04 | PN ---
Physical Exam: SUBJECTIVE: Patient seen and examined. She says pain is better. She reports a dry cough. OBJECTIVE: Vital Signs Period Temp Pulse Resp BP Sys/[place] Pulse Ox Last 24 Hr 97.5 F-98.9 F 69-76 16-18 93-133/49-75 98 GENERAL: The patient is awake, alert, and in no acute distress. LUNGS: Breath sounds equal, clear to auscultation bilaterally, no wheezes, no crackles, no accessory muscle use. HEART: Regular rate and rhythm, S1, S2 without murmur, rub or gallop. ABDOMEN: Obese, soft, nontender, nondistended, normoactive bowel sounds, no guarding, no rebound, no hepatosplenomegaly, no masses. EXTREMITIES: 2+ pulses, warm, well-perfused, no edema. Laboratory Results - last 24 hr 10/04/17 10/04/17 10/05/17 09:27 23:04 06:35 WBC 8.8 RBC 2.85 L Hgb 8.7 L Hct 25.7 L MCV 90.0 MCH 30.6 MCHC 34.1 RDW 20.0 H Plt Count 204 MPV 7.2 L Neutrophils % No Result Required. Lymphocytes % No Result Required. Sodium Potassium Chloride Carbon Dioxide Anion Gap BUN Creatinine POC Glucometer 201 156 Random Glucose Calcium Magnesium 10/05/17 10/05/17 06:35 06:38 WBC RBC Hgb Hct MCV MCH MCHC RDW Plt Count MPV Neutrophils % Lymphocytes % Sodium 135 L Potassium 4.9 Chloride 103 Carbon Dioxide 26 Anion Gap 6 L BUN 31 H Creatinine 0.6 POC Glucometer 166 Random Glucose 143 H Calcium 8.2 L Magnesium 2.1 Active Medications Generic Name Dose Route Start Last Admin Trade Name [place] PRN Reason Stop Dose Admin Dexamethasone 2 mg 09/15/17 07:20 10/05/17 06:39 Decadron - PO 2 mg TID DIAN Administration Docusate Sodium 100 mg 09/24/17 22:00 10/05/17 06:39 Colace - PO 100 mg TID DIAN Administration Enalapril Maleate 20 mg 09/11/17 10:00 10/04/17 09:36 Vasotec - PO 20 mg DAILY DIAN Administration Fentanyl 1 patch 10/04/17 17:00 10/04/17 17:05 Duragesic 25mcg Patch - TD 10/11/17 16:59 1 patch Q72H DIAN Administration Guaifenesin 10 ml 10/05/17 09:01 Robitussin Dm - PO Q6H PRN COUGH IV Flush 4 ml 09/10/17 14:43 10/03/17 21:49 Triple Lumen Flush IVPUSH 4 ml PRN PRN Administration Protocol Vancomycin HCl 1,250 mg/ 250 mls @ 166.667 mls/hr 10/05/17 10:00 Dextrose IVPB BID@1000,2200 [facility] Protocol Insulin Aspart 0 vial 09/27/17 10:00 10/04/17 23:06 Novolog Vial Sliding Scale - SQ Not Given BID [facility] Protocol Levetiracetam 500 mg/ 750 mg 09/23/17 10:00 10/04/17 23:06 Levetiracetam 250 mg PO 750 mg BID DIAN Administration Levothyroxine Sodium 150 mcg 09/11/17 07:00 10/05/17 06:39 Synthroid - PO 150 mcg DAILY@0700 [facility] Administration Miscellaneous 1 each 09/30/17 09:15 10/04/17 17:05 Duragesic Patch Waste TD 1 each PRN PRN Administration PAIN Miscellaneous 1 each 10/04/17 16:40 Duragesic Patch Waste TD PRN PRN PAIN Mupirocin 1 applic 09/10/17 22:00 10/05/17 06:38 Bactroban 2% Cream - TP 1 applic TID DIAN Administration Ondansetron HCl 4 mg 09/10/17 14:38 Zofran Injection IVPUSH Q6H PRN NAUSEA AND/OR VOMITING Oxycodone HCl 5 mg 10/04/17 16:39 10/04/17 23:10 Roxicodone - PO 5 mg Q4H PRN Administration PAIN LEVEL 6-10 Pantoprazole Sodium 40 mg 09/13/17 10:00 10/04/17 09:35 Protonix - PO 40 mg DAILY [facility]AN Administration Polyethylene Glycol 17 gm 09/10/17 17:23 10/04/17 09:33 Miralax (For Daily Use) - PO 17 grams DAILY [facility] Administration Simethicone 80 mg 09/27/17 09:44 10/01/17 10:16 Mylicon - PO 80 mg QID PRN Administration GAS ASSESSMENT/PLAN: This is a 61 year old woman with a history of HTN, colon cancer with metastases to brain and lungs, seizures, hypothyroidism who presented to the ED with worsening skin lesions. 1. MRSA bacteremia - Completed 3 weeks of Daptomycin from last positive blood culture - Vancomycin started 10/04 x 3 weeks 2. Colon cancer with metastases to brain, lungs, bone - Continue Decadron, Duragesic patch, oxycodone as needed 3. Steroid-induced DM - Continue Novolog sliding scale 4. History of seizures secondary to metastatic brain disease - Continue Keppra 5. HTN - Continue Vasotec 6. Hypothyroidism - Continue Synthroid 7. Anemia secondary to chemotherapy, cancer, infection 8. Thrombocytopenia secondary to chemotherapy - Resolved 9. Pseudohyponatremia secondary to hyperglycemia - Resolved 10. Constipation, opioid-induced - Continue Colace, Miralax 11. Partial SBO - Resolved 12. Obesity with BMI 38.6 13. Disposition - Plan for discharge to [place] vs SNF to complete course of Vancomycin Visit type - Emergency Visit Emergency Visit: Yes ED Registration Date: 09/07/17 Care time: The patient presented to the Emergency Department on the above date and was hospitalized for further evaluation of their emergent condition. - New Patient This patient is new to me today: No - Critical Care Critical Care patient: No - Discharge Referral Referred to [facility] No
[2017-10-05] MEDS ORDERED: PT OWN MED DRAWER 7, Y5N ONE (09:20)
[2017-10-05] MEDS: PANTOPRAZOLE 40 MG TABLET (FP) PO SCH (09:26)
[2017-10-05] MEDS: VANCOMYCIN 1,250 MG in DEXTROSE 5%-WATER - 250 ML IVPB SCH (09:26)
[2017-10-05] MEDS ORDERED: INSULIN (NOVOLOG) ASPART 100 UNITS/ML 10ML VIAL ONE (09:27)
[2017-10-05] MEDS: POLYETHYLENE GLYCOL 3350 119 GM BTL PO SCH (09:32)
[2017-10-05] MEDS: INSULIN SLIDING SCALE (NOVOLOG) 1 VIAL SQ SCH (09:55)
--- NOTE | 2017-10-05 12:02 | PN ---
Progress Note, Physician History of Present Illness: Remains afebrile, no complaints, hypotensive yesterday. - Current Medication List Current Medications: Active Medications Dexamethasone (Decadron -) 2 mg PO TID [facility] Last Admin: 10/05/17 06:39 Dose: 2 mg Docusate Sodium (Colace -) 100 mg PO TID [facility] Last Admin: 10/05/17 06:39 Dose: 100 mg Fentanyl (Duragesic 25mcg Patch -) 1 patch TD Q72H [facility] Stop: 10/11/17 16:59 Last Admin: 10/04/17 17:05 Dose: 1 patch Guaifenesin (Robitussin Dm -) 10 ml PO Q6H PRN PRN Reason: COUGH IV Flush (Triple Lumen Flush) 4 ml IVPUSH PRN PRN PRN Reason: Protocol Last Admin: 10/03/17 21:49 Dose: 4 ml Vancomycin HCl 1,250 mg/ (Dextrose) 250 mls @ 166.667 mls/hr IVPB BID@1000, 2200 [facility] PRN Reason: Protocol Last Admin: 10/05/17 09:26 Dose: 166.667 mls/hr Insulin Aspart (Novolog Vial Sliding Scale -) 0 vial SQ BID [facility] PRN Reason: Protocol Last Admin: 10/05/17 09:55 Dose: Not Given Levetiracetam 500 mg/ (Levetiracetam 250 mg) 750 mg PO BID [facility] Last Admin: 10/05/17 09:26 Dose: 750 mg Levothyroxine Sodium (Synthroid -) 150 mcg PO DAILY@0700 [facility] Last Admin: 10/05/17 06:39 Dose: 150 mcg Miscellaneous (Duragesic Patch Waste) 1 each TD PRN PRN PRN Reason: PAIN Last Admin: 10/04/17 17:05 Dose: 1 each Miscellaneous (Duragesic Patch Waste) 1 each TD PRN PRN PRN Reason: PAIN Mupirocin (Bactroban 2% Cream -) 1 applic TP TID [facility] Last Admin: 10/05/17 06:38 Dose: 1 applic Ondansetron HCl (Zofran Injection) 4 mg IVPUSH Q6H PRN PRN Reason: NAUSEA AND/OR VOMITING Oxycodone HCl (Roxicodone -) 5 mg PO Q4H PRN PRN Reason: PAIN LEVEL 6-10 Last Admin: 10/04/17 23:10 Dose: 5 mg Pantoprazole Sodium (Protonix -) 40 mg PO DAILY [facility] Last Admin: 10/05/17 09:26 Dose: 40 mg Polyethylene Glycol (Miralax (For Daily Use) -) 17 gm PO DAILY [facility] Last Admin: 10/05/17 09:32 Dose: 17 grams Simethicone (Mylicon -) 80 mg PO QID PRN PRN Reason: GAS Last Admin: 10/01/17 10:16 Dose: 80 mg - Objective Vital Signs: Vital Signs Temperature 97.8 F 10/05/17 10:00 Pulse Rate 72 10/05/17 10:00 Respiratory Rate 18 10/05/17 10:00 Blood Pressure 118/70 10/05/17 10:00 O2 Sat by Pulse Oximetry (%) 98 10/05/17 09:00 Constitutional: Yes: No Distress, Calm Neck: Yes: Supple Cardiovascular: Yes: Regular Rate and Rhythm Respiratory: Yes: Regular, Diminished, On Nasal O2 Gastrointestinal: Yes: Normal Bowel Sounds, Soft, Abdomen, Obese Edema: No Labs: CBC, BMP 10/05/17 06:35 10/05/17 06:35 INR, PTT INR 1.07 (0.82-1.09) 09/07/17 17:38 Problem List - Problems (1) MRSA bacteremia Code(s): R78.81 - BACTEREMIA (2) Colon cancer metastasized to multiple sites Code(s): C18.9 - MALIGNANT NEOPLASM OF COLON, UNSPECIFIED (3) Brain metastases Code(s): C79.31 - SECONDARY MALIGNANT NEOPLASM OF BRAIN (4) Hypothyroidism Code(s): E03.9 - HYPOTHYROIDISM, UNSPECIFIED Qualifiers: Hypothyroidism type: unspecified Qualified Code(s): E03.9 - Hypothyroidism , unspecified (5) Hypertension Code(s): I10 - ESSENTIAL (PRIMARY) HYPERTENSION Qualifiers: Hypertension type: essential hypertension Qualified Code(s): I10 - Essential (primary) hypertension (6) Pyogenic skin abscess due to bacteria Code(s): L02.91 - CUTANEOUS ABSCESS, UNSPECIFIED; B96.89 - OTH BACTERIAL AGENTS THE CAUSE OF DISEASES CLASSD [facility]SR Assessment/Plan 1. MRSA bacteremia referable to port infection since removed 2. Furuncles s/p I & D 3. Metastatic colon cancer to lungs and brain post chemotherapy 4. Type 2 diabetes mellitus 5. HTN 6. Hypothyroidism PLAN: 1. Decrease Vasotec 5 qd. Continue steroids with GI protection and seizure prophylaxis 2. DVT prophylaxis 3. Chnaged to IV Vanco course per ID. 4. D/c planning to [place]
[2017-10-05 12:31] LABS: PLATELET ESTIMATE ADEQUATE
[2017-10-05] MEDS: oxyCODONE HCL 5 MG TABLET PO PRN (14:12)
[2017-10-06] MEDS: MUPIROCIN CA 2% TOPICAL CREAM 15 GM TUBE TP SCH ×3 (00:06→13:48)
[2017-10-06] MEDS: DEXAMETHASONE 4 MG TABLET (FP) PO SCH ×3 (00:07→13:48)
[2017-10-06] MEDS: DOCUSATE SODIUM 100 MG CAPSULE (FP) PO SCH ×3 (00:07→13:48)
[2017-10-06] MEDS: oxyCODONE HCL 5 MG TABLET PO PRN ×2 (00:09→13:48)
[2017-10-06] MEDS: INSULIN SLIDING SCALE (NOVOLOG) 1 VIAL SQ SCH ×2 (00:09→11:22)
[2017-10-06] MEDS: VANCOMYCIN 1,250 MG in DEXTROSE 5%-WATER - 250 ML IVPB SCH ×2 (00:09→10:50)
[2017-10-06] MEDS: LEVOTHYROXINE NA 150 MCG TABLET PO SCH (06:31)
[2017-10-06] MEDS ORDERED: ENALAPRIL MALEATE 5 MG TABLET (FP) PO SCH (10:00)
[2017-10-06] MEDS ORDERED: PT OWN MED DRAWER 7, Y5N ONE (10:51)
--- NOTE | 2017-10-06 10:51 | PN ---
Progress Note, Physician History of Present Illness: Remains afebrile, no complaints, hypotensive yesterday. - Current Medication List Current Medications: Active Medications Dexamethasone (Decadron -) 2 mg PO TID [facility] Last Admin: 10/06/17 06:31 Dose: 2 mg Docusate Sodium (Colace -) 100 mg PO TID [facility] Last Admin: 10/06/17 06:31 Dose: 100 mg Enalapril Maleate (Vasotec -) 5 mg PO DAILY [facility] Fentanyl (Duragesic 25mcg Patch -) 1 patch TD Q72H [facility] Stop: 10/11/17 16:59 Last Admin: 10/04/17 17:05 Dose: 1 patch Guaifenesin (Robitussin Dm -) 10 ml PO Q6H PRN PRN Reason: COUGH Last Admin: 10/06/17 08:20 Dose: 10 ml IV Flush (Triple Lumen Flush) 4 ml IVPUSH PRN PRN PRN Reason: Protocol Last Admin: 10/03/17 21:49 Dose: 4 ml IV Flush (Picc Line Flush) 8 ml IVPUSH PRN PRN PRN Reason: Protocol Vancomycin HCl 1,250 mg/ (Dextrose) 250 mls @ 166.667 mls/hr IVPB BID@1000, 2200 [facility] PRN Reason: Protocol Last Admin: 10/06/17 10:50 Dose: Not Given Insulin Aspart (Novolog Vial Sliding Scale -) 0 vial SQ BID [facility] PRN Reason: Protocol Last Admin: 10/06/17 00:09 Dose: Not Given Levetiracetam 500 mg/ (Levetiracetam 250 mg) 750 mg PO BID [facility] Last Admin: 10/06/17 00:08 Dose: 750 mg Levothyroxine Sodium (Synthroid -) 150 mcg PO DAILY@0700 [facility] Last Admin: 10/06/17 06:31 Dose: 150 mcg Miscellaneous (Duragesic Patch Waste) 1 each TD PRN PRN PRN Reason: PAIN Last Admin: 10/04/17 17:05 Dose: 1 each Miscellaneous (Duragesic Patch Waste) 1 each TD PRN PRN PRN Reason: PAIN Mupirocin (Bactroban 2% Cream -) 1 applic TP TID [facility] Last Admin: 10/06/17 06:31 Dose: 1 applic Ondansetron HCl (Zofran Injection) 4 mg IVPUSH Q6H PRN PRN Reason: NAUSEA AND/OR VOMITING Oxycodone HCl (Roxicodone -) 5 mg PO Q4H PRN PRN Reason: PAIN LEVEL 6-10 Last Admin: 10/06/17 00:09 Dose: 5 mg Pantoprazole Sodium (Protonix -) 40 mg PO DAILY [facility] Last Admin: 10/05/17 09:26 Dose: 40 mg Polyethylene Glycol (Miralax (For Daily Use) -) 17 gm PO DAILY [facility] Last Admin: 10/05/17 09:32 Dose: 17 grams Simethicone (Mylicon -) 80 mg PO QID PRN PRN Reason: GAS Last Admin: 10/01/17 10:16 Dose: 80 mg - Objective Vital Signs: Vital Signs Temperature 97.5 F L 10/06/17 06:26 Pulse Rate 61 10/06/17 06:26 Respiratory Rate 20 10/06/17 06:26 Blood Pressure 131/66 10/06/17 06:26 O2 Sat by Pulse Oximetry (%) 97 10/05/17 21:00 Constitutional: Yes: No Distress, Calm Neck: Yes: Supple Cardiovascular: Yes: Regular Rate and Rhythm Respiratory: Yes: Regular, CTA Bilaterally Gastrointestinal: Yes: Normal Bowel Sounds, Soft, Abdomen, Obese Edema: No Labs: CBC, BMP 10/05/17 06:35 10/05/17 06:35 INR, PTT INR 1.07 (0.82-1.09) 09/07/17 17:38 Problem List - Problems (1) MRSA bacteremia Code(s): R78.81 - BACTEREMIA (2) Colon cancer metastasized to multiple sites Code(s): C18.9 - MALIGNANT NEOPLASM OF COLON, UNSPECIFIED (3) Brain metastases Code(s): C79.31 - SECONDARY MALIGNANT NEOPLASM OF BRAIN (4) Hypothyroidism Code(s): E03.9 - HYPOTHYROIDISM, UNSPECIFIED Qualifiers: Hypothyroidism type: unspecified Qualified Code(s): E03.9 - Hypothyroidism , unspecified (5) Hypertension Code(s): I10 - ESSENTIAL (PRIMARY) HYPERTENSION Qualifiers: Hypertension type: essential hypertension Qualified Code(s): I10 - Essential (primary) hypertension (6) Pyogenic skin abscess due to bacteria Code(s): L02.91 - CUTANEOUS ABSCESS, UNSPECIFIED; B96.89 - OTH BACTERIAL AGENTS THE CAUSE OF DISEASES CLASSD ELSWHR Assessment/Plan 1. MRSA bacteremia referable to port infection since removed 2. Furuncles s/p I & D 3. Metastatic colon cancer to lungs and brain post chemotherapy 4. Type 2 diabetes mellitus 5. HTN 6. Hypothyroidism PLAN: 1. Continue Vasotec 5 qd. Continue steroids with GI protection and seizure prophylaxis 2. DVT prophylaxis 3. Changed to IV Vanco course per ID. 4. D/c planning to [place]
[2017-10-06] MEDS: PANTOPRAZOLE 40 MG TABLET (FP) PO SCH (11:06)
[2017-10-06] MEDS: POLYETHYLENE GLYCOL 3350 119 GM BTL PO SCH (11:07)
[2017-10-06] MEDS ORDERED: PICC LINE 8 ML FLUSH PROTOCOL IVPUSH PRN (11:38)
--- NOTE | 2017-10-06 13:37 | DS ---
Physical Exam: Selected Entries 10/06/17 10/06/17 09:00 14:05 Temperature 97.8 F Pulse Rate 72 Respiratory 20 Rate Blood Pressure 117/70 O2 Sat by Pulse 99 Oximetry (%) Oxygen Delivery Room Air Method Laboratory Tests 09/07/17 09/08/17 09/08/17 17:38 06:00 06:00 WBC Hgb Hct Plt Count Sodium Potassium Chloride Carbon Dioxide Anion Gap BUN Creatinine Random Glucose Hemoglobin A1c % 8.9 H Lactic Acid 2.9 H* 1.1 Random Vancomycin Vancomycin Pre-Dose 09/09/17 09/10/17 09/15/17 09:00 06:00 13:20 WBC Hgb Hct Plt Count Sodium Potassium Chloride Carbon Dioxide Anion Gap BUN Creatinine Random Glucose Hemoglobin A1c % Lactic Acid 1.8 Random Vancomycin 16.927 Vancomycin Pre-Dose 28.113 H* 09/16/17 10/05/17 10/05/17 09:42 06:35 06:35 WBC 8.8 Hgb 8.7 L Hct 25.7 L Plt Count 204 Sodium 135 L Potassium 4.9 Chloride 103 Carbon Dioxide 26 Anion Gap 6 L BUN 31 H Creatinine 0.6 Random Glucose 143 H Hemoglobin A1c % Lactic Acid 0.8 Random Vancomycin Vancomycin Pre-Dose 10/06/17 08:35 WBC Hgb Hct Plt Count Sodium Potassium Chloride Carbon Dioxide Anion Gap BUN Creatinine Random Glucose Hemoglobin A1c % Lactic Acid Random Vancomycin Vancomycin Pre-Dose 20.385 H* Microbiology 09/18/17 18:15 Blood - Peripheral Venous Blood Culture - Final NO GROWTH AFTER 5 DAYS INCUBATION 09/18/17 16:30 Blood - Peripheral Venous Blood Culture - Final NO GROWTH AFTER 5 DAYS INCUBATION 09/15/17 08:08 Blood - Peripheral Venous Blood Culture - Final NO GROWTH AFTER 5 DAYS INCUBATION 09/15/17 06:40 Blood - Peripheral Venous Blood Culture - Final NO GROWTH AFTER 5 DAYS INCUBATION 09/13/17 08:00 Blood - Peripheral Venous Blood Culture - Final Mr S Aureus 09/13/17 06:00 Blood - Peripheral Venous Blood Culture - Final Mr S Aureus 09/11/17 19:00 Blood - Peripheral Venous Blood Culture - Final Presumptive Mrsa (Pbp2a Pos) 09/11/17 15:30 Blood - Peripheral Venous Blood Culture - Final Presumptive Mrsa (Pbp2a Pos) 09/09/17 06:00 Blood - Peripheral Venous Blood Culture - Final Presumptive Mrsa (Pbp2a Pos) 09/09/17 06:00 Blood - Peripheral Venous Blood Culture - Final Mr S Aureus 09/08/17 12:30 Blood - Sakshi Cath Blood Culture - Final Presumptive Mrsa (Pbp2a Pos) 09/08/17 11:25 Blood - Sakshi Cath Blood Culture - Final Mr S Aureus 09/08/17 11:18 Serum Cryptococcal Antigen - Final 09/08/17 11:00 Wound Viral Culture - Final 09/07/17 Unknown Back Gram Stain - Final 09/07/17 Unknown Back Wound Culture - Final Proteus Mirabilis Mr S Aureus Enterococcus Faecalis 09/07/17 17:38 Blood - Peripheral Venous Blood Culture - Final Presumptive Mrsa (Pbp2a Pos) 09/07/17 17:38 Blood - Peripheral Venous Blood Culture - Final Mr S Aureus 09/07 CXR- Impression: Nodular density right upper lobe. Follow-up recommended. 09/07 Vascular study- Impression: There is no evidence of deep venous thrombosis in the left lower extremity. 09/07 shoulder xray- No evidence of acute fracture or dislocation in the right shoulder. 09/09 humerus xray- Imaging reveals periosteal thickening in the proximal right humeral shaft but no sign of fracture and no sign of blastic or lytic changes. There is a right port. Correlation recommended. If symptoms persist, further imaging may be of help. 09/11 bone scan- Increased activity left femur and tibia specious for metastatic disease. Plain film radiographic correlation recommended. Please see above discussion. 09/12 femur & tib/fib xray- No sclerotic or lytic lesions identified. Further assessment with MR imaging is recommended as clinically warranted. 09/13 lower ext MRI- Expansile lesion 3.8 cm in its longer axis mid aspect left tibia with irregularity of its contours especially on the lateral side raising the possibility of underlying aggressive lesion such as metastasis or malignant chondromatous process. Further evaluation recommended. No evidence of pathologic fracture. No adjacent suspicious soft tissue mass lesions. 09/15 CT abd/pelvis -1. Large midline anterior abdominal wall incisional hernia containing fat and multiple small bowel loops. Partial versus early complete small bowel obstruction as described above with transition point in the efferent small bowel loop along the right lateral aspect of the abdominal wall defect. Collapsed distal small bowel. Gas and stool present throughout the colon. 2. Status post hysterectomy with inhomogeneously enhancing nodular tissue in the surgical bed, inseparable from thickened urinary bladder wall, similar to 03/14/2017 MRI. These findings may be attributed to some combination of postsurgical and/or post radiation changes, although, neoplasm is not excluded. Please correlate clinically and with most recent PET/CT. 3. Approximately 2.7 x 1.7 cm left pelvic sidewall cr mass is similar to 2016 MRI, suspicious for metastasis. 4. Increased size and number of bilateral pulmonary nodules since 07/09/2017 CT, likely progression of metastasis. 5. Right adrenal gland mass has increased in size since 07/09/2017 CT, most likely progression of metastasis. 6. Hepatic steatosis. 09/17 axr- Nonspecific bowel gas pattern HOSPITAL COURSE: Date of Admission:09/07/17 Date of Discharge: 10/06/17 61 year old F with pmh of metastatic colon cancer to lungs/brain/bone s/p chemo presented with skin lesions found to have MRSA bacteremia. Patient transferred to [facility] on 10/06. Patient with multiple medical problems during admission as stated below: #MRSA bacteremia with skin lesions -CULTURES STATED ABOVE -PATIENT TREATED WITH VANCOMYCIN/CEFTAROLINE/DAPTOMYCIN -ABX STARTED ON 09/10 AND WILL BE COMPLETED ON 10/28/2017. PATIENT LAST SWITCHED TO VANCOMYCIN ON 10/04/17. -PICC LINE PLACED ON 10/06 PRIOR TO DC #Metastatic Colon Cancer(mets in brain, pt requires seizure precautions) -PATIENT D/C ON DECADRON 2MG TID. --TAPERED: 09/07-09/09 4mg po q6hr 09/09-09/10 4mg po TID 09/11 4mg po once 09/12-09/14 4mg po bid 09/13 2mg po q8h 25 4mg po once 09/15 - 10/02 2mg po TID -PAIN CONTROL WITH FENTANYL PATCH, OXYCODONE 10 MG Q6H PRN, AND LIDOCAINE PATCH -MRI OF TIBIA-- BONE METASTASIS -SEIZURE PPX WITH KEPPRA 750 MG BID #PARTIAL VS COMPLETE SBO -RESOLVED -NO SURGICAL INTERVENTION -PATIENT ON MIRALAX, COLACE, ZOFRAN, AND SIMETHICONE PRN #DM, new onset -A1C 8.9 -PATIENT ON INSULIN SLIDING SCALE PATIENT IS DNI Minutes to complete discharge: 65 Discharge Summary Reason For Visit: GENERALIZED SKIN LESIONS Current Active Problems Bacteremia (Acute) Colon cancer metastasized to multiple sites (Acute) Hypothyroidism (Acute) MRSA bacteremia (Acute) Pyogenic skin abscess due to bacteria (Acute) Skin lesions, generalized (Acute) Hypertension (Chronic) Condition: Stable - Instructions Diet, Activity, Other Instructions: You were treated for a skin infection with IV antibiotics and are being transferred to complete the course of antibiotics. Please follow-up with your primary care physician and oncology team upon discharge from [place] to evaluate you further regarding your cancer treatments. Continue taking your medications as prescribed. Referrals: Cora Mancia MD [Primary Care Provider] - Prieto Kaiser MD [Staff Physician] - Disposition: TRANSFER ACUTE CARE/OTHER HOSP - Home Medications Comprehensive Discharge Medication List: Ambulatory Orders Levothyroxine [Synthroid -] 150 mcg PO DAILY 12/24/16 Simvastatin [Zocor -] 10 mg PO HS 07/22/17 Dexamethasone [Decadron -] 2 mg PO TID tablet 10/06/17 Docusate Sodium [Colace -] 100 mg PO TID capsule 10/06/17 Enalapril Maleate [Vasotec -] 5 mg PO DAILY tablet 10/06/17 FENTANYL 25mcg PATCH [DURAGESIC 25mcg PATCH -] 1 patch TD Q72H patch.td72 MDD n.a 10/06/17 Fentanyl Patch Waste [Duragesic Patch Waste] 1 each TD PRN PRN each 10/06/17 Guaifenesin Dm [Robitussin Dm -] 10 ml PO Q6H PRN cup 10/06/17 Insulin Sliding Scale [Novolog Vial Sliding Scale -] 0 vial SQ BID units Mupirocin Cream [Bactroban 2% Cream -] 1 applic TP TID tube 10/06/17 Ondansetron Injection [Zofran Injection] 4 mg IVPUSH Q6H PRN vial 10/06/17 Pantoprazole Sodium [Protonix -] 40 mg PO DAILY tablet.ec 10/06/17 Picc Line Flush [Picc Line Flush -] 8 ml IVPUSH PRN PRN ml 10/06/17 Polyethylene Glycol 3350 [Miralax 119 gm Btl -] 17 gm PO DAILY bottle 10/06/17 Simethicone [Mylicon -] 80 mg PO QID PRN tab.chew 10/06/17 Triple Lumen Flush 4 ml IVPUSH PRN PRN ml 10/06/17 Vancomycin 1,250 mg IVPB BID@1000,2200 vial 10/06/17 levETIRAcetam [Keppra -] 750 mg PO BID tablet 10/06/17 oxyCODONE HCL [Roxicodone -] 5 mg PO Q4H PRN tablet MDD na 10/06/17 This patient is new to me today: No Emergency Visit: Yes ED Registration Date: 09/07/17 Care time: The patient presented to the Emergency Department on the above date and was hospitalized for further evaluation of their emergent condition. Critical Care patient: No - Discharge Referral Referred to [facility] No
--- NOTE | 2017-10-06 13:57 | PN ---
Progress Note (short form) - Note Progress Note: ID Switched to Vancomcyin after Dapto Selected Entries 10/06/17 09:00 Temperature 97.4 F L Pulse Rate 75 Respiratory 20 Rate Blood Pressure 127/75 Microbiology 09/15/17 08:08 Blood - Peripheral Venous Blood Culture - Final NO GROWTH AFTER 5 DAYS INCUBATION 09/15/17 06:40 Blood - Peripheral Venous Blood Culture - Final NO GROWTH AFTER 5 DAYS INCUBATION 09/13/17 08:00 Blood - Peripheral Venous Blood Culture - Final S Aureus 09/13/17 06:00 Blood - Peripheral Venous Blood Culture - Final S Aureus Laboratory Tests 10/05/17 10/05/17 10/06/17 06:35 06:35 08:35 WBC 8.8 Hgb 8.7 L Hct 25.7 L Anion Gap 6 L BUN 31 H Creatinine 0.6 Vancomycin Pre-Dose 20.385 H* Assessment Persistant MRSA bacteremia resolved with Dapto Now on vancomycin trough high Plan Hold vancomycin through tomorrow 10/08 check Random level and if around 15ug resume Vancomycin at 1 gram bid for balance of treatment Ishan SUÁREZ Problem List - Problems (1) Pyogenic skin abscess due to bacteria Code(s): L02.91 - CUTANEOUS ABSCESS, UNSPECIFIED; B96.89 - OTH BACTERIAL AGENTS THE CAUSE OF DISEASES CLASSD ELSWHR (2) Colon cancer metastasized to multiple sites Code(s): C18.9 - MALIGNANT NEOPLASM OF COLON, UNSPECIFIED (3) MRSA bacteremia Code(s): R78.81 - BACTEREMIA
[2017-10-06 14:51] VITALS: BP 117/70; PULSE 72; TEMP 97.8
--- NOTE | 2017-10-06 18:38 | PN ---
Teaching Attending Note Name of Resident: Burke Vuong ATTENDING PHYSICIAN STATEMENT I saw and evaluated the patient. I reviewed the resident's note and discussed the case with the resident. I agree with the resident's findings and plan as documented. SUBJECTIVE: No complaints. OBJECTIVE: Vital Signs Period Temp Pulse Resp BP Sys/[place] Pulse Ox Last 24 Hr 97.4 F-97.8 F 61-75 20-20 117-131/66-75 97-99 HEART: S1S2, RRR LUNGS: Clear ABDOMEN: Obese, soft, non-tender, non-distended, normal BS EXTREMITIES: No edema Laboratory Results - last 24 hr 10/05/17 10/06/17 10/06/17 23:34 06:30 08:35 POC Glucometer 123 203 Vancomycin Pre-Dose 20.385 H* 10/06/17 11:10 POC Glucometer 442 Vancomycin Pre-Dose ASSESSMENT AND PLAN: This is a 61 year old woman with a history of HTN, colon cancer with metastases to brain and lungs, seizures, hypothyroidism who presented to the ED with worsening skin lesions. 1. MRSA bacteremia - Completed 3 weeks of Daptomycin from last positive blood culture - Vancomycin started 10/04 x 3 weeks 2. Colon cancer with metastases to brain, lungs, bone - Continue Decadron, Duragesic patch, oxycodone as needed 3. Steroid-induced DM - Continue Novolog sliding scale 4. History of seizures secondary to metastatic brain disease - Continue Keppra 5. HTN - Continue Vasotec 6. Hypothyroidism - Continue Synthroid 7. Anemia secondary to chemotherapy, cancer, infection 8. Thrombocytopenia secondary to chemotherapy - Resolved 9. Pseudohyponatremia secondary to hyperglycemia - Resolved 10. Constipation, opioid-induced - Continue Colace, Miralax 11. Partial SBO - Resolved 12. Obesity with BMI 38.6 13. Discharge to [place] to complete course of Vancomycin
== END 2017-10-06 16:30 | disposition short-term general hospital (02) | DRG 264 ==
LOC: JER 16:46 → JERBED 20:13 → UNDOADMIN 21:33 → JERBED 21:33 → J7W 23:43
PROVIDERS: ADMIT Internal Medicine; ATTEND Internal Medicine
PROC: 0HB6XZX Excision of Back Skin, External Approach, Diagnostic (ICD-10-PCS; principal; 2017-09-08)
PROC: 0J970ZX Drainage of Back Subcutaneous Tissue and Fascia, Open Approach, Diagnostic (ICD-10-PCS; 2017-09-10)
PROC: 0JPV0WZ Removal of Totally Implantable Vascular Access Device from Upper Extremity Subcutaneous Tissue and Fascia, Open Approach (ICD-10-PCS; 2017-09-10)
PROC: 0W3L0ZZ Control Bleeding in Lower Back, Open Approach (ICD-10-PCS; 2017-09-10 12:30)
PROC: 02HV33Z Insertion of Infusion Device into Superior Vena Cava, Percutaneous Approach (ICD-10-PCS; 2017-10-06)
PROC: B548ZZA Ultrasonography of Superior Vena Cava, Guidance (ICD-10-PCS; 2017-10-06)
DX: T80.218A Other infection due to central venous catheter, initial encounter (principal); A41.02 Sepsis due to Methicillin resistant Staphylococcus aureus; L02.212 Cutaneous abscess of back [any part, except buttock and flank]; C18.9 Malignant neoplasm of colon, unspecified; C78.00 Secondary malignant neoplasm of unspecified lung; C79.31 Secondary malignant neoplasm of brain; C79.89 Secondary malignant neoplasm of other specified sites; G72.0 Drug-induced myopathy; E87.1 Hypo-osmolality and hyponatremia; I76 Septic arterial embolism; C79.51 Secondary malignant neoplasm of bone; K43.0 Incisional hernia with obstruction, without gangrene; L98.9 Disorder of the skin and subcutaneous tissue, unspecified; I10 Essential (primary) hypertension; E03.9 Hypothyroidism, unspecified; D69.6 Thrombocytopenia, unspecified; M25.511 Pain in right shoulder; G40.909 Epilepsy, unspecified, not intractable, without status epilepticus; K43.9 Ventral hernia without obstruction or gangrene; K64.9 Unspecified hemorrhoids; D64.9 Anemia, unspecified; Z88.0 Allergy status to penicillin; E09.9 Drug or chemical induced diabetes mellitus without complications; T38.0X5A Adverse effect of glucocorticoids and synthetic analogues, initial encounter; D69.59 Other secondary thrombocytopenia; T45.1X5A Adverse effect of antineoplastic and immunosuppressive drugs, initial encounter; L02.828 Furuncle of other sites; Y84.8 Other medical procedures as the cause of abnormal reaction of the patient, or of later complication, without mention of misadventure at the time of the procedure; B95.62 Methicillin resistant Staphylococcus aureus infection as the cause of diseases classified elsewhere; K59.00 Constipation, unspecified; E66.9 Obesity, unspecified; Z68.38 Body mass index [BMI] 38.0-38.9, adult; I95.9 Hypotension, unspecified; D64.81 Anemia due to antineoplastic chemotherapy
CPT/HCPCS: 36415; 36556; 36569; 71045-TC-FY; 73030-TC-RT-FY; 73060-TC-RT-FY; 73552-TC-LT-FY; 73590-TC-LT-FY; 73718-LT; 74018-TC-FY; 74177-TC; 77001-TC-FY; 78306-TC; 80048; 80053; 82550; 82962; 83036; 83605; 83735; 84100; 85025; 85610; 86850; 86900; 86901; 87040; 87070; 87186; 87205; 87252; 87899; 88300-TC; 88305-TC; 93005; 93010; 93306-TC; 93971-TC; 94760; 97116-GP; 97162-GP; 99283-25; A9503; C1751; G0480; J0878; J7030